=== PATIENT | male | born 1965 | race Hispanic/Latino ===

== ENCOUNTER 2018-12-02 14:35 | Observation (INO) | payer OTHER, SELFPAY ==
--- OUTSIDE RECORDS SUMMARY | 2018-12-02 14:37 | XMS REPORT ---
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
--- OUTSIDE RECORDS SUMMARY | 2018-12-02 14:37 | XMS REPORT ---
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 Problem Essential hypertension I10 Active Assessment Pain in joints of right hand M25.541 Active Problem Pure hypercholesterolemia E78.00 Active Problem History of alcoholism F10.21 Active Medications Medication Code Code Instructions Start End Date Status Dosage System Date Gemfibrozil [facility] 93428406823 600 MG Orally Active 1 tablet Twice a day Lisinopril [facility] 32734640023 20 MG Orally Active 1 tablet Once a day Metformin HCl [facility] 16166140804 1000 MG Orally Active 1 tablet Twice a day with meals Aspir-81 [facility] 04612365418 81 MG Orally Active 1 tablet Once a day Results No Known Results Summary Purpose eClinicalWorks Submission
--- OUTSIDE RECORDS SUMMARY | 2018-12-02 14:38 | XMS REPORT ---
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 Problem Essential hypertension I10 Active Assessment Diabetes 1.5, 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 Problem Pure hypercholesterolemia E78.00 Active Problem History of alcoholism F10.21 Active Medications Medication Code Code Instructions Start End Date Status Dosage System Date [facility] 75357546659 81 MG Orally Active 1 tablet Once a day Metformin HCl [facility] 01402627798 1000 MG Orally Active 1 tablet Twice a day with meals Lisinopril [facility] 09191818969 20 MG Orally Active 1 tablet Once a day Gemfibrozil [facility] 27588810063 600 MG Orally Active 1 tablet Twice a day Results No Known Results Summary Purpose eClinicalWorks Submission
[2018-12-02 15:31] LABS: Absolute Lymphocytes (CBC) 1.5 K/uL (0.7-4.9); Absolute Monocytes 0.4 K/uL (0.1-1.3); Absolute Neutrophil 7.1 K/uL (1.8-8.0); Basophils % 0.5 % (0-1.3); Eosinophils % 1.7 % (0-4.4); Hematocrit 45.2 % (39.6-49.0); Lymphocytes % 16.4 % (15.3-44.8); MPV 10.2 fL (7.6-11.3); Monocytes % 4.5 % (3.3-12.3); RBC Red Blood Cell Count 5.17 M/uL (4.33-5.43)
[2018-12-02 15:35] LABS: Protime INR 1.15
[2018-12-02] MEDS ORDERED: ENOXAPARIN 80 MG/0.8 ML SQ ONE (15:43)
[2018-12-02] MEDS ORDERED: METOPROLOL TARTRATE 5 MG/5 ML INJ IV ONE (15:43)
[2018-12-02] MEDS ORDERED: METOPROLOL TAR 50 MG TAB ONE (15:43)
[2018-12-02] MEDS ORDERED: FAMOTIDINE 20 MG/2 ML VIAL IV ONE (15:44)
[2018-12-02] MEDS ORDERED: NA CHLORIDE 0.9% 1,000 ML ONE (15:44)
[2018-12-02 15:52] LABS: ALT/SGPT 30 U/L (12-78); AST/SGOT 21 U/L (15-37); Albumin 4.2 g/dL (3.4-5.0); Alkaline Phosphatase 83 U/L (45-117); BUN Blood Urea Nitrogen 20 mg/dL (7-18); Bicarbonate 24 mmol/L (21-32); Bilirubin Direct 0.2 mg/dL (0-0.2); Bilirubin Total 1.1 mg/dL (0.2-1.0); Glucose Level 160 mg/dL (74-106); Magnesium 1.6 mg/dL (1.8-2.4); NT PRO-BNP 282 pg/mL (<125); Potassium 4.5 mmol/L (3.5-5.1); Protein, Total 8.3 g/dL (6.4-8.2); Sodium Level 134 mmol/L (136-145); Troponin (Emerg Dept Use Only) < 0.02 ng/mL (0.0-0.045)
--- NOTE | 2018-12-02 16:51 | RAD REPORT ---
EXAM DESCRIPTION: RAD - Chest Single View - 12/02/2018 4:37 pm CLINICAL HISTORY: Tachycardia, hypertension, abnormal EKG COMPARISON: None. TECHNIQUE: AP portable chest image was obtained 1624 hours . FINDINGS: Lungs are clear. Heart and vasculature are normal. No measurable pleural effusion and no p neumothorax. No acute bony abnormality seen. No acute aortic findings suspected. IMPRESSION: No acute cardiopulmonary process.
[2018-12-02] MEDS ORDERED: Magnesium Sulfate 2gm IVPB 2 G/50 ML BAG IV ONE (16:55)
--- NOTE | 2018-12-02 17:03 | ER ---
Nurse's Notes [facility] Name: Beto Luevano Age: 53 yrs Sex: Male : 1965 Arrival Date: 12/02/2018 Time: 14:38 Bed 14 Private MD: Sammy Ordaz Diagnosis: Atrial fibrillation and flutter-new onset ;Type 2 diabetes mellitus;Hypomagnesemia Presentation: 12/02 14:46 Presenting complaint: Patient states: i went for a prescreening for work and they told tw2 me to come to the ER that my heart rate was high. Transition of care: patient was not received from another setting of care. Onset of symptoms was December 02, 2018. Risk Assessment: Do you want to hurt yourself or someone else? Patient reports no desire to harm self or others. Initial Sepsis Screen: Does the patient meet any 2 criteria? HR > 90 bpm. Does the patient have a suspected source of infection? No. Patient's initial sepsis screen is negative. Care prior to arrival: None. 14:46 Method Of Arrival: Ambulatory tw2 14:46 Acuity: JUAN 2 tw2 Historical: - Allergies: 14:57 Ibuprofen; tw2 - Home Meds: 14:57 Lisinopril Oral [Active]; Metformin Oral [Active]; gemfibrozil Oral [Active]; tw2 - PMHx: 14:57 Hypertension; tw2 - PSHx: 14:57 None; tw2 - Immunization history:: Adult Immunizations. - Social history:: Smoking status: Patient/guardian denies using tobacco. - Ebola Screening: : Patient denies travel to an Ebola-affected area in the 21 days before illness onset. - Family history:: not pertinent. Screenin:54 Abuse screen: Denies threats or abuse. Nutritional screening: No deficits noted. tw2 Tuberculosis screening: No symptoms or risk factors identified. Fall Risk None identified. Assessment: 14:46 General: Appears in no apparent distress. well groomed, Behavior is calm, cooperative, tw2 appropriate for age. Pain: Denies pain. Neuro: Level of Consciousness is awake, alert, obeys commands, Oriented to person, place, time, situation. Cardiovascular: Denies chest pain, shortness of breath, Heart tones S1 S2 Patient's skin is warm and dry. Respiratory: Airway is patent Respiratory effort is even, unlabored, Respiratory pattern is regular, symmetrical, Breath sounds are clear bilaterally. GI: No signs and/or symptoms were reported involving the gastrointestinal system. : No signs and/or symptoms were reported regarding the genitourinary system. EENT: No signs and/or symptoms were reported regarding the EENT system. Derm: No signs and/or symptoms reported regarding the dermatologic system. Musculoskeletal: Range of motion: intact in all extremities. 15:28 Reassessment: Dr. Toure at bedside at t his time. tw2 15:55 Reassessment: Patient appears in no apparent distress at this time. No changes from tw2 previously documented assessment. Patient and/or family updated on plan of care and expected duration. Pain level reassessed. Patient is alert, oriented x 3, equal unlabored respirations, skin warm/dry/pink. 17:04 Reassessment: Patient appears in no apparent distress at this time. No changes from tw2 previously documented assessment. Patient and/or family updated on plan of care and expected duration. Pain level reassessed. Patient is alert, oriented x 3, equal unlabored respirations, skin warm/dry/pink. 17:06 Reassessment: Echo at bedside at this time. tw2 17:57 Reassessment: Patient appears in no apparent distress at this time. No changes from tw2 previously documented assessment. Patient and/or family updated on plan of care and expected duration. Pain level reassessed. Patient is alert, oriented x 3, equal unlabored respirations, skin warm/dry/pink. Vital Signs: 14:53 BP 152 / 110; Pulse 133; Resp 19; Temp 98.8(O); Pulse Ox 99% on R/A; Pain 0/10; tw2 14:53 Weight 78.02 kg (R); Height 5 ft. 6 in. (167.64 cm); tw2 15:28 BP 100 / 59; Pulse 117; Resp 23; Pulse Ox 98% ; tw2 15:55 BP 106 / 87; Pulse 92; Resp 23; Pulse Ox 100% on R/A; tw2 17:04 BP 105 / 78; Pulse 95; Resp 17; Pulse Ox 100% on R/A; tw2 17:57 BP 94 / 64; Pulse 102; Resp 18; Pulse Ox 98% on R/A; tw2 14:53 Body Mass Index 27.76 (78.02 kg, 167.64 cm) tw2 14:53 Dr. Whitney notified, EKG at bedside tw2 ED Course: 14:38 Patient arrived in ED. dl4 14:39 Sammy Ordaz MD is Private Physician. dl4 14:46 Placed in gown. Bed in low position. traffic monitor specialist on. Pulse ox on. NIBP on. EKG tw2 performed at this time. 14:52 James Toure MD is Attending Physician. alice 14:53 Triage completed. tw2 14:54 Arm band placed on. tw2 14:55 Initial lab(s) drawn, by me, EKG done, by ED staff, reviewed by James Toure MD. hj Inserted saline lock: 22 gauge in right antecubital area, using aseptic technique. Blood collected. 15:27 Corazon Jaramillo, RN is Primary Nurse. tw2 15:53 Inserted saline lock: 22 gauge in left forearm, using aseptic technique. tw2 15:53 IV discontinued, intact, bleeding controlled, No redness/swelling at site. Pressure tw2 dressing applied, infiltration noted to RIGHT ac. 16:38 REPEAT EKG WAS DONE. sm3 16:39 XRAY Chest (1 view) In Process Unspecified. EDMS 16:58 Sammy Ordaz MD is Hospitalizing Provider. [facility] 18:05 No provider procedures requiring assistance completed. Patient admitted, IV remains in tw2 place. Administered Medications: 15:45 Drug: Lovenox 1 mg/kg Route: Sub-Q; Site: right lower abdomen; tw2 16:38 Follow up: Response: No adverse reaction tw2 15:48 Drug: Lopressor (metoprolol TARTRATE) 50 mg Route: PO; tw2 16:39 Follow up: Response: No adverse reaction tw2 15:48 Drug: Pepcid 20 mg Route: IVP; Site: left forearm; tw2 16:38 Follow up: Response: No adverse reaction tw2 15:50 Drug: Lopressor 5 mg Route: IVP; Site: left forearm; tw2 16:38 Follow up: Response: No adverse reaction; Blood pressure is lowered tw2 15:53 Drug: NS 0.9% 1000 ml Route: IV; Rate: 1 bolus; Site: left forearm; tw2 17:06 Follow up: Response: No adverse reaction; IV Status: Completed infusion; IV Intake: tw2 1000ml 16:40 Not Given (pts condition ): Lopressor 5 mg IVP once; Hold for SBP <100 or HR <60. tw2 16:50 Drug: Magnesium Sulfate 2 grams Route: IVPB; Infused Over: 2 hrs; Site: left forearm; tw2 18:31 Follow up: Response: No adverse reaction; IV Status: Completed infusion tw2 Intake: 17:06 IV: 1000ml; Total: 1000ml. tw2 Outcome: 17:00 Decision to Hospitalize by Provider. alice 18:57 Patient left the ED. aaRadha 18:57 Admitted to Med/surg accompanied by tech, via wheelchair, room 422, with chart, Report tw2 called to nurse for room 422. 18:57 Condition: stable 18:57 Instructed on the need for admit. Signatures: Dispatcher [employer] EDJames Hay MD MD cha Calderon, Audri RN RN aa5 Colin Ordoñez RN RN hj Wise, Tara, RN RN tw2 Amanda Calzada 3 Enrike Mayo dl4
--- NOTE | 2018-12-02 17:03 | EDPHYS ---
Physician Documentation [facility] Name: Beto Luevano Age: 53 yrs Sex: Male : 1965 Arrival Date: 12/02/2018 Time: 14:38 Bed 14 Private MD: Sammy Ordaz ED Physician James Toure HPI: 12/02 15:32 This 53 yrs old Male presents to ER via Ambulatory with complaints of Abnormal alice EKG. 15:32 The patient presents with a history of irregular heart beat, heart racing. Context: The alice symptoms occur at rest, with light activity. Onset: The symptoms/episode began/occurred at an unknown time. Duration: The patient or guardian reports multiple episodes, unk. Modifying factors: The symptoms are aggravated by nothing. The symptoms are alleviated by nothing. Modifying factors: The symptoms are aggravated by movement, The symptoms are alleviated by remaining still. Associated signs and symptoms: The patient has no apparent associated signs or symptoms. Severity of symptoms: At their worst the symptoms were very mild in the emergency department the symptoms are unchanged. Historical: - Allergies: 14:57 Ibuprofen; tw2 - Home Meds: 14:57 Lisinopril Oral [Active]; Metformin Oral [Active]; gemfibrozil Oral [Active]; tw2 - PMHx: 14:57 Hypertension; tw2 - PSHx: 14:57 None; tw2 - Immunization history:: Adult Immunizations. - Social history:: Smoking status: Patient/guardian denies using tobacco. - Ebola Screening: : Patient denies travel to an Ebola-affected area in the 21 days before illness onset. - Family history:: not pertinent. ROS: 15:32 Constitutional: Negative for fever, chills, and weight loss, Eyes: Negative for injury, alice pain, redness, and discharge, ENT: Negative for injury, pain, and discharge, Neck: Negative for injury, pain, and swelling, Respiratory: Negative for shortness of breath, cough, wheezing, and pleuritic chest pain, Abdomen/GI: Negative for abdominal pain, nausea, vomiting, diarrhea, and constipation, Back: Negative for injury and pain, : Negative for injury, bleeding, discharge, and swelling, MS/Extremity: Negative for injury and deformity, Skin: Negative for injury, rash, and discoloration, Neuro: Negative for headache, weakness, numbness, tingling, and seizure, Psych: Negative for depression, anxiety, suicide ideation, homicidal ideation, and hallucinations, Allergy/Immunology: Negative for hives, rash, and allergies, Endocrine: Negative for neck swelling, polydipsia, polyuria, polyphagia, and marked weight changes, Hematologic/Lymphatic: Negative for swollen nodes, abnormal bleeding, and unusual bruising. Exam: 15:32 Constitutional: This is a well developed, well nourished patient who is awake, alert, alice and in no acute distress. Head/Face: Normocephalic, atraumatic. Eyes: Pupils equal round and reactive to light, extra-ocular motions intact. Lids and lashes normal. Conjunctiva and sclera are non-icteric and not injected. Cornea within normal limits. Periorbital areas with no swelling, redness, or edema. ENT: Nares patent. No nasal discharge, no septal abnormalities noted. Tympanic membranes are normal and external auditory canals are clear. Oropharynx with no redness, swelling, or masses, exudates, or evidence of obstruction, uvula midline. Mucous membranes moist. Neck: Trachea midline, no thyromegaly or masses palpated, and no cervical lymphadenopathy. Supple, full range of motion without nuchal rigidity, or vertebral point tenderness. No Meningismus. Chest/axilla: Normal chest wall appearance and motion. Nontender with no deformity. No lesions are appreciated. Respiratory: Lungs have equal breath sounds bilaterally, clear to auscultation and percussion. No rales, rhonchi or wheezes noted. No increased work of breathing, no retractions or nasal flaring. Abdomen/GI: Soft, non-tender, with normal bowel sounds. No distension or tympany. No guarding or rebound. No evidence of tenderness throughout. Back: No spinal tenderness. No costovertebral tenderness. Full range of motion. Male : Normal genitalia with no discharge or lesions. Skin: Warm, dry with normal turgor. Normal color with no rashes, no lesions, and no evidence of cellulitis. MS/ Extremity: Pulses equal, no cyanosis. Neurovascular intact. Full, normal range of motion. Neuro: Awake and alert, GCS 15, oriented to person, place, time, and situation. Cranial nerves II-XII grossly intact. Motor strength 5/5 in all extremities. Sensory grossly intact. Cerebellar exam normal. Normal gait. Psych: Awake, alert, with orientation to person, place and time. Behavior, mood, and affect are within normal limits. 15:32 Cardiovascular: Rate: tachycardic, Rhythm: irregularly irregular, Pulses: Pulses are 4+ in bilateral radial, brachial, femoral, popliteal, posterior tibial and and dorsalis pedis arteries.. Heart sounds: normal, Edema: is not appreciated, JVD: is not appreciated. Vital Signs: 14:53 BP 152 / 110; Pulse 133; Resp 19; Temp 98.8(O); Pulse Ox 99% on R/A; Pain 0/10; tw2 14:53 Weight 78.02 kg (R); Height 5 ft. 6 in. (167.64 cm); tw2 15:28 BP 100 / 59; Pulse 117; Resp 23; Pulse Ox 98% ; tw2 15:55 BP 106 / 87; Pulse 92; Resp 23; Pulse Ox 100% on R/A; tw2 17:04 BP 105 / 78; Pulse 95; Resp 17; Pulse Ox 100% on R/A; tw2 17:57 BP 94 / 64; Pulse 102; Resp 18; Pulse Ox 98% on R/A; tw2 14:53 Body Mass Index 27.76 (78.02 kg, 167.64 cm) tw2 14:53 Dr. Whitney notified, EKG at bedside tw2 MDM: 14:52 Patient medically screened. [facility] 15:36 Data reviewed: vital signs, nurses notes, lab test result(s), EKG, radiologic studies, alice plain films. 12/02 14:58 Order name: Basic Metabolic Panel; Complete Time: 16:27 12/02 14:58 Order name: CBC with Diff; Complete Time: 16:27 12/02 14:58 Order name: LFT's; Complete Time: 16:27 12/02 14:58 Order name: Magnesium; Complete Time: 16:27 12/02 14:58 Order name: NT PRO-BNP; Complete Time: 16:27 12/02 14:58 Order name: PT-INR; Complete Time: 16:27 12/02 14:58 Order name: Troponin (emerg Dept Use Only); Complete Time: 16:27 12/02 14:58 Order name: XRAY Chest (1 view) 12/02 15:26 Order name: TSH [facility] 12/02 15:26 Order name: Echo w/ Doppler [facility] 12/02 16:33 Order name: Echo w/ Doppler [facility] 12/02 14:58 Order name: EKG; Complete Time: 14:58 12/02 14:58 Order name: Cardiac monitoring; Complete Time: 14:58 12/02 14:58 Order name: EKG - Nurse/Tech; Complete Time: 14:58 12/02 14:58 Order name: IV Saline Lock; Complete Time: 14:58 12/02 14:58 Order name: Labs collected and sent; Complete Time: 14:58 12/02 14:58 Order name: O2 Per Protocol; Complete Time: 14:58 12/02 14:58 Order name: O2 Sat Monitoring; Complete Time: 14:58 12/02 16:28 Order name: EKG; Complete Time: 16:29 [facility] 12/02 16:28 Order name: EKG - Nurse/Tech; Complete Time: 16:38 [facility] 12/02 17:25 Order name: CONS Physician Consult EDMS Administered Medications: 15:45 Drug: Lovenox 1 mg/kg Route: Sub-Q; Site: right lower abdomen; tw2 16:38 Follow up: Response: No adverse reaction tw2 15:48 Drug: Lopressor (metoprolol TARTRATE) 50 mg Route: PO; tw2 16:39 Follow up: Response: No adverse reaction tw2 15:48 Drug: Pepcid 20 mg Route: IVP; Site: left forearm; tw2 16:38 Follow up: Response: No adverse reaction tw2 15:50 Drug: Lopressor 5 mg Route: IVP; Site: left forearm; tw2 16:38 Follow up: Response: No adverse reaction; Blood pressure is lowered tw2 15:53 Drug: NS 0.9% 1000 ml Route: IV; Rate: 1 bolus; Site: left forearm; tw2 17:06 Follow up: Response: No adverse reaction; IV Status: Completed infusion; IV Intake: tw2 1000ml 16:40 Not Given (pts condition ): Lopressor 5 mg IVP once; Hold for SBP <100 or HR <60. tw2 16:50 Drug: Magnesium Sulfate 2 grams Route: IVPB; Infused Over: 2 hrs; Site: left forearm; tw2 18:31 Follow up: Response: No adverse reaction; IV Status: Completed infusion tw2 Disposition: 12/02/18 17:00 Hospitalization ordered by Sammy Ordaz for Observation. Preliminary diagnosis are Atrial fibrillation and flutter - new onset , Type 2 diabetes mellitus, Hypomagnesemia. - Bed requested for Telemetry/MedSurg (observation). - Status is Observation. aa5 - Condition is Stable. - Problem is new. - Symptoms have improved. UTI on Admission? No Signatures: Dispatcher [employer] EDMS [place] Corey, MD MD cha Calderon, Audri RN RN aa5 Corazon Jaramillo RN RN tw2 Corrections: (The following items were deleted from the chart) 18:00 17:00 Hospitalization Ordered by Sammy Ordaz MD for Observation. Preliminary diagnosis bd is Atrial fibrillation and flutter - new onset ; Type 2 diabetes mellitus; Hypomagnesemia. Bed requested for Telemetry/MedSurg (observation). Status is Observation. Condition is Stable. Problem is new. Symptoms have improved. UTI on Admission? No. alice 18:57 18:00 12/02/2018 17:00 Hospitalization Ordered by Sammy Ordaz MD for Observation. aa5 Preliminary diagnosis is Atrial fibrillation and flutter - new onset ; Type 2 diabetes mellitus; Hypomagnesemia. Bed requested for Telemetry/MedSurg (observation). Status is Observation. Condition is Stable. Problem is new. Symptoms have improved. UTI on Admission? No. bd
[2018-12-02 19:13] LABS: Urine Appearance CLEAR; Urine Bilirubin NEGATIVE (NEG); Urine Blood NEGATIVE (NEG); Urine Color YELLOW; Urine Glucose NEGATIVE (NEG); Urine Protein NEGATIVE (NEG); Urine Urobilinogen 0.2 mg/dL (0.2-1.0)
[2018-12-02] MEDS ORDERED: D50W 25 GM/50 ML SYRINGE IV PRN (19:23)
[2018-12-02] MEDS ORDERED: GLUCAGON 1 MG/VIAL IM PRN (19:23)
[2018-12-02] MEDS ORDERED: ONDANSETRON 4 MG/2 ML VIAL IV PRN (19:23)
[2018-12-02] MEDS ORDERED: MORPHINE 4 MG/ML SYR IV PRN (19:23)
[2018-12-02] MEDS ORDERED: ACETAMINOPHEN 500 MG TAB PO PRN (19:23)
[2018-12-02 19:29] LABS: Urine Bacteria NONE SEEN /HPF (NONE SEEN); Urine Culture Reflex Order NOT NEEDED; Urine RBC NONE SEEN /HPF (NONE SEEN)
[2018-12-02] MEDS ORDERED: METOPROLOL TAR 50 MG TAB PO SCH (21:00)
[2018-12-02] MEDS ORDERED: ENOXAPARIN 80 MG/0.8 ML SQ SCH (21:00)
[2018-12-02] MEDS: NA CHLORIDE 0.9% 1,000 ML IV SCH (21:03)
[2018-12-02] MEDS: MAGNESIUM OXIDE 400 MG TAB PO SCH (21:05)
[2018-12-02] MEDS: INSULIN -REGULAR HUMAN 50 UNIT/0.5 ML ML SQ SCH (21:05)
[2018-12-02] MEDS: FAMOTIDINE 20 MG/2 ML VIAL IV SCH (21:06)
[2018-12-02 23:47] VITALS: BMI 27.7
[2018-12-03 02:37] VITALS: O2SAT 99
[2018-12-03 04:46] VITALS: TEMP 97.7
[2018-12-03] MEDS: NA CHLORIDE 0.9% 1,000 ML IV SCH (05:09)
[2018-12-03] MEDS ORDERED: ENOXAPARIN 80 MG/0.8 ML SQ SCH (06:00)
[2018-12-03 06:29] LABS: Absolute Monocytes 0.4 K/uL (0.1-1.3); Absolute Neutrophil 2.6 K/uL (1.8-8.0); Basophils % 0.7 % (0-1.3); Eosinophils % 5.6 % (0-4.4); Hematocrit 39.5 % (39.6-49.0); Lymphocytes % 36.6 % (15.3-44.8); MPV 10.1 fL (7.6-11.3); Monocytes % 7.7 % (3.3-12.3); RBC Red Blood Cell Count 4.52 M/uL (4.33-5.43)
[2018-12-03 06:30] LABS: BUN Blood Urea Nitrogen 17 mg/dL (7-18); Bicarbonate 24 mmol/L (21-32); Glucose Level 154 mg/dL (74-106); Potassium 4.1 mmol/L (3.5-5.1); Sodium Level 141 mmol/L (136-145)
--- NOTE | 2018-12-03 06:57 | EKG ---
Test Date: 2018-12-02 Test Time: 16:35:27 Lean Engineer: ZHANG MEASUREMENT RESULTS: Intervals: Rate: 85 VA: QRSD: 82 QT: 344 QTc: 409 [place]: P: VA: QRS: 44 T: 40 INTERPRETIVE STATEMENTS: Atrial fibrillation Abnormal ECG Compared to ECG 04/22/2007 21:47:50 Sinus rhythm no longer present T-wave abnormality no longer present Electronically Signed On 12-03-18 06:56:07 LOSS PREVENTION OPERATIONS MANAGER by Andrea Wu
--- NOTE | 2018-12-03 06:58 | EKG ---
Test Date: 2018-12-02 Test Time: 14:50:54 Business Process Specialist: CYNTHIA MEASUREMENT RESULTS: Intervals: Rate: 121 AK: QRSD: 82 QT: 266 QTc: 377 [place]: P: AK: QRS: 46 T: 41 INTERPRETIVE STATEMENTS: Atrial fibrillation with rapid ventricular response Abnormal ECG Compared to ECG 04/22/2007 21:47:50 Sinus rhythm no longer present T-wave abnormality no longer present Electronically Signed On 12-03-18 06:56:17 FOOD AND BEVERAGE COORDINATOR by Andrea Wu
[2018-12-03] MEDS: INSULIN -REGULAR HUMAN 50 UNIT/0.5 ML ML SQ SCH (07:30)
--- NOTE | 2018-12-03 07:50 | ECHO ---
HEIGHT: 5 ft 6 in WEIGHT: 172 lb 0 oz DATE OF STUDY: 12/02/[address]: James Toure MD 2-DIMENSIONAL: YES M.MODE: YES DOPPLER: YES COLOR FLOW: YES TDS: NO PORTABLE: NO DEFINITY: NO BUBBLE STUDY: NO DIAGNOSIS: ATRIAL FIBRILLATION CARDIAC HISTORY: CATHERIZATION: NO SURGERY: NO PROSTHETIC VALVE: NO PACEMAKER: NO MEASUREMENTS (cm) DIASTOLIC (NORMALS) SYSTOLIC (NORMALS) IVSd 1.1 (0.6-1.2) LA Diam 4.0 (1.9-4.0) LVEF 56% LVIDd 4.3 (3.5-5.7) LVIDs 3.1 (2.0-3.5) %FS 29% LVPWd 1.0 (0.6-1.2) Ao Diam 2.6 (2.0-3.7) 2 DIMENSIONAL ASSESSMENT: RIGHT ATRIUM: NORMAL LEFT ATRIUM: NORMAL RIGHT VENTRICLE: NORMAL LEFT VENTRICLE: NORMAL TRICUSPID VALVE: NORMAL MITRAL VALVE: NORMAL PULMONIC VALVE: NORMAL AORTIC VALVE: NORMAL PERICARDIAL EFFUSION: NONE AORTIC ROOT: NORMAL LEFT VENTRICULAR WALL MOTION: NORMAL DOPPLER/COLOR FLOW: MILD TRICUSPID REGURGITATION. COMMENTS: MILD TRICUSPID REGURGITATION. NORMAL RIGHT VENTRICULAR SYSTOLIC PRESSURE. NORMAL LEFT VENTRICULAR SIZE AND FUNCTION. NORMAL LEFT ATRIAL SIZE, NO THROMBUS. ATRIAL FIBRILLATION. TECHNOLOGIST: Scot CHA
--- NOTE | 2018-12-03 08:40 | P.SSS ---
Patient History Date of Service: 12/03/18 Primary Care Provider: Orlin Reason for admission: Atrial fib History of Present Illness: Patient is a office patient of [employer]. Has a history of diabetes, htn, chronic alcoholism in remission. The patient went to a pre work physical. Was found to have a rapid heart rate and got an EKG. Was sent to the ER with Atrial fib. The patient had a heart rate over 100. He had no symptoms. Was started on a beta carrie and given lovenox. He has no history of CAD. Allergies ibuprofen Allergy (Verified 12/02/18 18:32) Hives Home Medications: Aspirin [Adult Low Dose Aspirin EC] 81 mg PO DAILY 12/02/18 Docosahexanoic AC/Epa [Fish Oil 1,000 MG*] 1,000 mg PO DAILY 12/02/18 Gemfibrozil 600 mg PO BID 12/02/18 Lisinopril 30 mg PO DAILY 12/02/18 Metformin HCl 1,000 mg PO BEDTIME 12/02/18 Metformin HCl 1,500 mg PO DAILY 12/02/18 Multivits,Ca,Min/Iron/FA/Lycop [Centrum Men's Tablet] 1 tab PO DAILY 12/02/18 - Past Medical/Surgical History Has patient received pneumonia vaccine in the past: No Diabetic: Yes -: HTN -: hyperlipidemia -: NIDDM -: L ankle fx -: pancreatitis -: L ankle surgery - Family History Father -: Diabetes Mother -: Hypertension - Social History Smoking Status: Current some day smoker Alcohol use: Yes CD- Drugs: No Caffeine use: Yes Place of Residence: Home Review of Systems 10-point ROS is otherwise unremarkable Physical Examination - Vital Signs Temperature: 97.7 F Blood Pressure: 122/84 Pulse: 91 Respirations: 16 Pulse Ox (%): 98 - Physical Exam General: Alert, In no apparent distress HEENT: Atraumatic, PERRLA, Mucous membr. moist/pink, EOMI, Sclerae nonicteric Neck: Supple, 2+ carotid pulse no bruit, No LAD, Without JVD or thyroid abnormality Respiratory: Clear to auscultation bilaterally, Normal air movement Cardiovascular: Regular rate/rhythm, Normal S1 S2 Gastrointestinal: Normal bowel sounds, No tenderness Musculoskeletal: No tenderness Integumentary: No rashes Neurological: Normal gait, Normal speech, Normal strength at 5/5 x4 extr, Normal tone, Normal affect Lymphatics: No axilla or inguinal lymphadenopathy - Studies Laboratory Data (last 24 hrs) 12/02/18 14:59: PT 13.5 H, INR 1.15 12/02/18 14:59: WBC 9.3, Hgb 15.2, Hct 45.2, Plt Count 208 12/02/18 14:59: Sodium 134 L, Potassium 4.5, BUN 20 H, Creatinine 0.95, Glucose 160 H, Magnesium 1.6 L, Total Bilirubin 1.1 H, AST 21, ALT 30, Alkaline Phosphatase 83 - Diagnosis (Problem(s)) (1) Atrial fibrillation Current Visit: Yes Status: Acute Plan: New onset. He was seen by Dr. Wu. Had a normal echocardiogram. Will start him on carvedilol and xarelto. Will have him follow up with Dr. Wu and myself. Qualifiers: Atrial fibrillation type: unspecified Qualified Code(s): I48.91 - Unspecified atrial fibrillation (2) Diabetes 1.5, managed as type 2 Current Visit: Yes Status: Acute Plan: Patient is stable on metformin (3) HTN (hypertension) Current Visit: Yes Status: Acute Plan: continue lisinopril. The patient is stable. Qualifiers: Hypertension type: essential hypertension Qualified Code(s): I10 - Essential (primary) hypertension - Disposition Disposition: ROUTINE DISCHARGE Diet: ADA Activity: Ad enrique Physician Review: Patient Assessed, Agree with Above Assessment and Plan Critical Care: No Time Spent Managing Pts Care (In Minutes): 45
[2018-12-03] MEDS: FAMOTIDINE 20 MG/2 ML VIAL IV SCH (08:59)
[2018-12-03] MEDS ORDERED: LISINOPRIL 10 MG TAB PO SCH (09:00)
[2018-12-03] MEDS ORDERED: ASPIRIN EC 81 MG TAB PO SCH (09:00)
[2018-12-03] MEDS ORDERED: CARVEDILOL 6.25 MG TAB PO SCH (09:00)
[2018-12-03 09:01] VITALS: BP 124/90
[2018-12-03] MEDS: MAGNESIUM OXIDE 400 MG TAB PO SCH (09:22)
--- NOTE | 2018-12-03 10:55 | EKG ---
Test Date: 2018-12-03 Test Time: 09:29:50 Process Eng: RENÉE MEASUREMENT RESULTS: Intervals: Rate: 97 [place]: QRSD: 86 QT: 318 QTc: 403 [place]: P: [place]: QRS: 48 T: 40 INTERPRETIVE STATEMENTS: Atrial fibrillation Abnormal ECG Compared to ECG 12/02/2018 16:35:27 No significant changes Electronically Signed On 12-03-18 10:54:49 [employer] by Josse Russell
--- NOTE | 2018-12-03 12:22 | CON ---
Date of Consultation: 12/02/2018 Reason For Admission: Atrial fibrillation. History Of Present Illness: Mr. Luevano is a 53-year-old male, who has a history of d iabetes, high triglyceride, hypertension, and alcohol use. He was found incidentally to be in atrial fibrillation on routine physical examination. He did not have any symptoms. He was [facility], was admitted after Lovenox and beta-blockers. He is now on Xarelto and beta-blockers. His atrial fibrillation rate is about 90-100. Echocardiogram that was done stat shows normal ejectio n fraction. No wall motion abnormalities and no effusion. The patient is asymptomatic. Allergies: MOTRIN. Review of Systems: Negative. Social History: Positive for tobacco. Family History: Positive for diabetes. Medications: At home include metformin, aspirin, Lopid, and lisinopril. Physical Examination: Vital signs: Stable, afebrile. Atrial fibrillation at a rate of 90 HEENT: Negative. Neck: Supple with no bruit. Chest: Clear to auscultation and percussion. Cardiac: Exam revealed atrial fibrillation. No murmurs, gallops, or rubs. Abdomen: Benign. Extremities: Revealed no clubbing, cyanosis, or edema. Diagnostic Data: All normal except for the EKG showing atrial fibrillation. Glucose is 160. Tropon in is negative. Chest x-ray was negative. Impression And Plan: Atrial fibrillation of unknown duration. I would be comfortable with him going home on Xarelto and a beta carrie. We will see how he does over the next 2 weeks. I will see him in the office. I will do an outpatient stress test on him. If he remains asymptomatic, we could con tinue with beta-carrie, Xarelto or consider cardioversion. The case was discussed in detail with Dr Tavia Ordaz, with Mr. Luevano and his family. His other problems include diabetes, hypertension, and hyp ertriglyceridemia, although these are fairly well controlled. The patient was instructed to watch hi s alcohol intake. DALY/MODL Voice ID: [id number] Report ID: [id number]
[2018-12-03] MEDS ORDERED: RIVAROXABAN 20 MG TABLET PO SCH (17:00)
== END 2018-12-03 09:47 | disposition home or self-care (01) ==
LOC: ER 14:35 → ERHOLD 17:22 → 4TH 18:33
PROVIDERS: ADMIT Internal Medicine; ATTEND Internal Medicine
DX: I48.91 Unspecified atrial fibrillation (principal); E11.9 Type 2 diabetes mellitus without complications; I10 Essential (primary) hypertension; E78.5 Hyperlipidemia, unspecified; F17.210 Nicotine dependence, cigarettes, uncomplicated
CPT/HCPCS: 36415; 71045; 80048; 80076; 81001; 82962; 83735; 83880; 84443; 84484; 85025; 85610; 93005; 93306; 96361; 96365; 96366; 96372; 96375; 99285; G0378; J1650; J3475; J7030

== ENCOUNTER 2020-04-17 02:17 | Emergency (ER) | payer OTHER, SELFPAY ==
--- OUTSIDE RECORDS SUMMARY | 2020-04-17 02:23 | XMS REPORT | Clinical Summary ---
:1965 Author Organization [facility] Address [address] [place] [address] Care Team Providers Name Role Phone Rose Ordaz MD Primary Care Provider Allergies Active Allergy Reactions Severity Noted Date Comments Ibuprofen Hives 05/05/2019 Medications Medication Sig Dispensed Refills Start End Date Status Date aspirin (ECOTRIN) Take 81 mg by 0 Active 81 MG enteric mouth daily. coated tablet docosahexanoic Take by mouth. 0 Active acid/epa (FISH OIL ORAL) multivitamin Take 1 tablet 0 Act fredy (THERAGRAN) tablet by mouth daily. lisinopril Take 20 mg by 0 Activ e (PRINIVIL) 20 mg mouth daily. tablet metFORMIN Take 1,000 mg 0 Active (GLUCOPHAGE) 1,000 by mouth daily mg tablet with breakfast. rivaroxaban Take 20 mg by 0 Acti ve (XARELTO) 20 mg mouth daily. tablet CARVEDILOL ORAL Take by mouth. 0 Active baclofen Take 1 tablet 3 90 tablet 11 Acti ve (LIORESAL) 10 MG times a day-- 9 tablet Start 1 tablet at bedtime x1 week, then 1 tablet twice daily x1 week, then 1 tablet three times daily gemfibrozil Take 600 mg by 0 Act fredy (LOPID) 600 MG mouth 2 (two) tablet times a day before meals. ascorbic acid Take 1,000 mg 0 Ac tive (VITAMIN C ORAL) by mouth. cholecalciferol, Take 1,000 0 Ac tive vitamin D3, Units by mouth (VITAMIN D3) 1,000 daily. unit tablet BETA CAROTENE ORAL Take 15 mg by 0 Active mouth. folic acid 0.8 mg Take by mouth. 0 Active capsule riluzole (RILUTEK) Take 1 tablet 180 tablet 3 Active 50 mg tablet (50 mg total) 0 21 by mouth every 12 (twelve) hours. NON FORMULARY Genfibrozil 600 0 09/18/20 Discontinued mg po bid 19 (Med List Cleanup) riluzole (RILUTEK) Take 1 tablet 180 tablet 3 Discontinued 50 mg tablet (50 mg total) 9 20 (Du plicate by mouth every order ) 12 (twelve) hours. riluzole (RILUTEK) Take 1 tablet 60 tablet 2 0 Discontinued 50 mg tablet (50 mg total) 0 20 by mouth every 12 (twelve) hours. riluzole (RILUTEK) TAKE 1 TABLET 60 tablet 11 0 Discontinued 50 mg (50 MG TOTAL) 0 20 (Dupli winnie tabletIndications: BY MOUTH EVERY order) ALS (amyotrophic 12 (TWELVE) lateral sclerosis) HOURS. (FORMERLY [facility]) Active Problems Problem Noted Date Spasticity 10/29/2019 Risk for falls 10/29/2019 Muscle cramping 05/07/2019 Atrial fibrillation 05/06/2019 ALS (amyotrophic lateral sclerosis) Muscle weakness Resolved Problems Problem Noted Date Resolved Date Cranial nerve lesion 05/06/2019 Myasthenia gravis with exacerbation 04/08 Encounters Date Type Specialty Care Team Description 03/03/2020 Telephone Neurology Sandy Nation RN 03/02/2020 Documentation ADMIN Annika Hernandez 02/09/2020 Telephone Neurology Sandy Nation RN 02/02/2020 Orders Only Neurology Sandy Nation RN 01/27/2020 Social Work Neurology Joelle Vargas LCSW 01/07/2020 Refill Neurology Sourav Velazco ALS (amyotrop hic MD Marques lateral scleros is) ([facility]LY [facility]) (Primary Dx) 12/25/2019 Telephone Neurology Dennise Parkinson ALS (amyotro aixa SERVIN lateral scleros is) (FORM[facility]LY [facility]) (Primary Dx) 12/25/2019 Travel 11/10/2019 Orders Only Neurology Sandy Nation RN 09/18/2019 Lab Lab Sourav Velazco ALS (amyotrop hic MD trini Mohan scleros is) (FORM[facility]LY [facility]) 09/18/2019 Multidisciplinary Visit Neurology Sony Hernandez ALS (amyotrophic lateral sclerosis) (FORM[facility]LY [facility]) (Primary Dx); MD Sloan Spasticity; Dennise Parkinson, Muscle cramp ing; RN Muscle weakness ; Risk for falls 09/18/2019 Documentation Neurology Sophia Price 09/10/2019 Orders Only Neurology Dennise Parkinson, ALS (amyotro phic RN lateral scleros is) ([facility]) (Primary Dx) 05/07/2019 Hospital Encounter Radiology Sourav Velazco ALS (am yotrophic lateral sclerosis) (FORM[facility]LY [facility]); MD Marques Type 2 diabetes mellitus with other ophthalmic complication, without long-term current use of insulin ([facility]) 05/07/2019 Procedure visit Neurology Sourav Vealzco ALS (amyot rophic lateral sclerosis) ([facility]) (Primary Dx); MD Marques Weight loss, un intentional 05/07/2019 Orders Only Neurology Dennise Parkinson, ALS (amyotro phic lateral sclerosis) ([facility]) (Primary Dx); RN Muscle cramping 05/06/2019 Procedure visit Neurology Sourav Velazco Type 2 flo betes mellitus with other ophthalmic complication, without long-term current use of insulin ([facility]) (Primary Dx); MD Marques ALS (amyotrophi c lateral sclerosis) ([facility]); Weight loss, un intentional 05/06/2019 Orders Only Neurology Sandy Nation ALS (amyot rophic lateral sclerosis) ([facility]) (Primary Dx); RN Type 2 diabetes mellitus with other ophthalmic complication, without long- term current use of insulin ([facility]) 05/06/2019 Documentation ADMIN Michelet Flores 05/06/2019 Documentation ADMIN Michelet Flores 05/05/2019 Hospital Encounter Radiology Sourav Velazco MD 05/05/2019 Hospital Encounter Radiology Sourav Velazco MD 05/05/2019 Hospital Encounter Pulmonology Sourav Velazco (am yotrophic lateral sclerosis) ([facility]LY [facility]); MD Marques Weight loss, un intentional 05/05/2019 Procedure visit Neurology Sourav Velazco ALS (amyot rophic lateral sclerosis) ([facility]); MD Marques Weight loss, un intentional; Atrial fibrilla tion, unspecified type ([facility]) 05/05/2019 Social Work Neurology Joelle Vargas LCSW 05/05/2019 Orders Only Neurology Sandy Nation, Atrial fib rillation, RN unspecified typ e (HCC) (Primary Dx) 04/23/2019 Orders Only Neurology Sandy Nation, ALS (amyot rophic lateral sclerosis) ([facility]) (Primary Dx); RN Weight loss, un intentional after 04/17/2019 Family History Medical History Relation Name Comments Diabetes Father Hypertension Mother Relation Name Status Comments Father Mother Social History Tobacco Use Types Packs/Day Years Used Date Former Smoker Smokeless Tobacco: Never Used Alcohol Use Drinks/Week oz/Week Comments Yes 20 Cans of beer 20.0 Sex Assigned at Date Recorded Not on file Job Start Date Occupation Industry Not on file Not on file Not on file Travel History Travel Start Travel End No recent travel history available. Last Filed Vital Signs Vital Sign Reading Time Taken Comments Blood Pressure 137/96 09/18/2019 7:43 [facility] Pulse 83 09/18/2019 7:43 [employer] [facility] Temperature 36.4 C (97.6 F) 09/18/2019 7:43 AM [employer] [facility] Respiratory Rate 16 09/18/2019 7:43 AM [employer] [facility] Oxygen Saturation 98% 05/07/2019 10:00 AM CDT Inhaled Oxygen Concentration - - Weight 76.5 kg (168 lb 11.2 oz) 09/18/2019 7:43 AM [employer] Height 165.1 cm (5' 5") 09/18/2019 7:43 AM [employer] [facility] Body Mass Index 28.07 09/18/2019 7:43 AM [facility] Plan of Treatment Date Type Specialty Care Team Description 05/13/2020 Multidisciplinary Visit Neurology Dennise Parkinson R N Health Maintenance Due Date Last Done Comments DIABETIC RETINAL EYE EXAM 1965 DIABETIC FOOT EXAM 1974 URINE MICROALBUMIN 1974 COLONOSCOPY SCREENING 2014 SHINGLES VACCINES (#1) 2014 INFLUENZA VACCINE 05/07/2020 Procedures Procedure Name Priority Date/Time Associated Diagnosis Comme nts HEPATIC FUNCTION PANEL Routine 09/18/2019 7:30 ALS (amyotroph ic Results for this AM [facility] [facility] lateral sclerosis) procedure are in ([facility]) the results section. IR LUMBAR PUNCTURE Routine 05/07/2019 9:45 ALS (amyotrophic R esults for this AM CDT lateral sclerosis) procedure are in ([facility]) the results Type 2 diabetes section. mellitus with other ophthalmic complication, without long-term current use of insulin (HCC) OLIGOCLONAL BANDING, Routine 05/07/2019 9:38 Res ults for this CSF AM CDT procedure are i n the results section. CSF CELL COUNT WITH Routine 05/07/2019 9:38 ALS (amyotrophic Results for this DIFFERENTIAL AM CDT lateral sclerosis) procedure are in ([facility]) the results Type 2 diabetes section. mellitus with other ophthalmic complication, without long-term current use of insulin ([facility]) GLUCOSE LEVEL, CSF Routine 05/07/2019 9:38 ALS (amyotrophic R esults for this AM CDT lateral sclerosis) procedure are in ([facility]) the results Type 2 diabetes section. mellitus with other ophthalmic complication, without long-term current use of insulin ([facility]) IGG SYNTHESIS RATE Routine 05/07/2019 9:38 ALS (amyotrophic R esults for this STUDY AM CDT lateral sclerosis) procedure are in ([facility]) the results Type 2 diabetes section. mellitus with other ophthalmic complication, without long-term current use of insulin ([facility]) LYME DISEASE REFLEXIVE Routine 05/07/2019 9:38 ALS (amyotroph ic Results for this PANEL, CSF AM CDT lateral sclerosis) procedure are in ([facility]) the results Type 2 diabetes section. mellitus with other ophthalmic complication, without long-term current use of insulin ([facility]) MYELIN BASIC PROTEIN Routine 05/07/2019 9:38 ALS (amyotrophic Results for this AM CDT lateral sclerosis) procedure are in ([facility]) the results Type 2 diabetes section. mellitus with other ophthalmic complication, without long-term current use of insulin ([facility]) POC GLUCOSE Routine 05/07/2019 9:11 Results for this AM CDT procedure are i n the results section. IGG SYNTHESIS RATE STAT 05/07/2019 6:55 ALS (amyotrophic R esults for this STUDY AM CDT lateral sclerosis) procedure are in ([facility]) the results section. HEMOGLOBIN A1C Routine 05/06/2019 9:52 Type 2 diabetes Result s for this AM CDT mellitus with other procedur e are in ophthalmic the results complication, section. without long-term current use of insulin ([facility]) EMG Routine 05/05/2019 3:47 ALS (amyotrophic Results for this PM CDT lateral sclerosis) procedure are in ([facility]) the results Weight loss, section. unintentional ECG 12-LEAD Routine 05/05/2019 12:27 Atrial fibrillation, Res ults for this PM CDT unspecified type procedure a re in ([facility]) the results section. SPIROMETRY, MIPS/MEPS Routine 05/05/2019 7:33 ALS (amyotrophi c Results for this AM CDT lateral sclerosis) procedure are in (HCC) the results Weight loss, section. unintentional MARIE TITER Routine 05/05/2019 7:08 Results for this AM CDT procedure are i n the results section. ESTIMATED GFR Routine 05/05/2019 7:08 Results fo r this AM CDT procedure are i n the results section. ACETYLCHOLINE RECEPTOR Routine 05/05/2019 7:08 ALS (amyotroph ic Results for this BINDING AB AM CDT lateral sclerosis) procedure are in (HCC) the results Weight loss, section. unintentional MARIE Routine 05/05/2019 7:08 ALS (amyotrophic Results for this AM CDT lateral sclerosis) procedure are in (HCC) the results Weight loss, section. unintentional BASIC METABOLIC PANEL Routine 05/05/2019 7:08 ALS (amyotrophi c Results for this AM CDT lateral sclerosis) procedure are in ([facility]) the results Weight loss, section. unintentional HC COMPLETE BLD COUNT Routine 05/05/2019 7:08 ALS (amyotrophi c Results for this W/AUTO DIFF AM CDT lateral sclerosis) procedure are in (HCC) the results Weight loss, section. unintentional CREATINE KINASE, TOTAL Routine 05/05/2019 7:08 ALS (amyotroph ic Results for this (CPK) AM CDT lateral sclerosis) procedure are in (HCC) the results Weight loss, section. unintentional FOLATE LEVEL Routine 05/05/2019 7:08 ALS (amyotrophic Results for this AM CDT lateral sclerosis) procedure are in ([facility]) the results Weight loss, section. unintentional HEPATIC FUNCTION PANEL Routine 05/05/2019 7:08 ALS (amyotroph ic Results for this AM CDT lateral sclerosis) procedure are in (HCC) the results Weight loss, section. unintentional HTLV I/II AB WITH Routine 05/05/2019 7:08 ALS (amyotrophic Re sults for this REFLEX TO CONFIRMATION AM CDT lateral sclerosis) procedure are in ([facility]) the results Weight loss, section. unintentional LIPID PANEL Routine 05/05/2019 7:08 ALS (amyotrophic Results for this AM CDT lateral sclerosis) procedure are in (HCC) the results Weight loss, section. unintentional B. BURGDORFERI ABS Routine 05/05/2019 7:08 ALS (amyotrophic R esults for this TOTAL, SERUM AM CDT lateral sclerosis) procedure are in (HCC) the results Weight loss, section. unintentional PARATHYROID HORMONE Routine 05/05/2019 7:08 ALS (amyotrophic Results for this AM CDT lateral sclerosis) procedure are in (HCC) the results Weight loss, section. unintentional RHEUMATOID FACTOR Routine 05/05/2019 7:08 ALS (amyotrophic Re sults for this AM CDT lateral sclerosis) procedure are in (HCC) the results Weight loss, section. unintentional SYPHILIS TOTAL ANTIBODY Routine 05/05/2019 7:08 ALS (amyotrop hic Results for this AM CDT lateral sclerosis) procedure are in (HCC) the results Weight loss, section. unintentional SERUM ELECTROPHORESIS Routine 05/05/2019 7:08 ALS (amyotrophi c Results for this AM CDT lateral sclerosis) procedure are in (HCC) the results Weight loss, section. unintentional T4, FREE Routine 05/05/2019 7:08 ALS (amyotrophic Results for this AM CDT lateral sclerosis) procedure are in (HCC) the results Weight loss, section. unintentional THYROID STIMULATING Routine 05/05/2019 7:08 ALS (amyotrophic Results for this HORMONE AM CDT lateral sclerosis) procedure are in (HCC) the results Weight loss, section. unintentional VITAMIN D 25 HYDROXY Routine 05/05/2019 7:08 ALS (amyotrophic Results for this LEVEL AM CDT lateral sclerosis) procedure are in (HCC) the results Weight loss, section. unintentional VITAMIN B12 LEVEL Routine 05/05/2019 7:08 ALS (amyotrophic Re sults for this AM CDT lateral sclerosis) procedure are in (HCC) the results Weight loss, section. unintentional CRP HIGH SENSITIVITY Routine 05/05/2019 7:08 ALS (amyotrophic Results for this AM CDT lateral sclerosis) procedure are in (HCC) the results Weight loss, section. unintentional HIV AG/AB COMBINATION Routine 05/05/2019 7:08 ALS (amyotrophi c Results for this AM CDT lateral sclerosis) procedure are in (HCC) the results Weight loss, section. unintentional after 04/17/2019 Results Hepatic function panel (09/18/2019 7:30 AM [employer] [facility])Only the most recent of2 results within the time period is included. Albumin 3.9 3.5 - 5.0 g/dL [facility] Total bilirubin 0.9 0.0 - 1.2 [facility] mg/dL [facility] Bilirubin direct <0.2 0.0 - 0.3 [facility] mg/dL [facility] Alkaline phosphatase 77 40 - 129 U/L [facility] Protein 7.9 6.3 - 8.3 g/dL [facility] Comment: HOSPITAL Pdrkisy8103.6-7.0 g/dL 1 btga9438.4-7.6 g/dL 7 months-6xgie441.1-7.3 g/dL 1-2 .6-7.5 g/dL >3 wtzmi895.0-8.0 g/dL 18-2255984.3-8.3 g/dL ALT 28 5 - 50 U/L [facility] AST 25 10 - 50 U/L [facility] Specimen Plasma specimen Performing Organization Address City/State/Zipcode Phone Number [facility] DEPARTMENT OF PATHOLOGY AND [address] [place] [phone] GENOMIC MEDICINE [address] [address] IR Lumbar Puncture by Radiology (05/07/2019 9:45 AM CDT) Specimen Narrative Performed At EXAMINATION: IR LUMBAR PUNCTURE [facility] NUMBER OF VIEWS: 0 CLINICAL HISTORY: G12.21 Amyotrophic lateral scleros is, E11.39 Type 2 diabetes mellitus with other diabetic op hthalmic complication, ALS COMPARISON: None. FINDINGS: After informed consent, lumbar puncture was performed with fluoroscopic assistance at the L5-S1 level using a 27-gauge spinal needle. Approximately 15 cc of clear cerebral spinal fluid was obtained and sent to the lab. No radiographs were taken. In fact the save screen pilo ge was deleted by mistake. The total fluoroscopy time was 0.10 liza tavares. IMPRESSION: Lumbar puncture. [facility]-[id number] Procedure Note Interface, Radiology Results Incoming - 05/07/2019 10:15 AM CDT EXAMINATION: IR LUMBAR PUNCTURE NUMBER OF VIEWS: 0 CLINICAL HISTORY: G12.21 Amyotrophic la teral sclerosis, E11.39 Type 2 diabetes mellitus with other diabetic ophthalmic complication, ALS COMPARISON: None. FINDINGS: After informed consent, lumbar puncture was performed with fluoroscopic assistance at the L5-S1 level using a 27-gauge spinal needle. Approximately 15 cc of clear cerebral spinal fluid was obtained and sent to the lab. No radiographs were taken. In fact the s ave screen image was deleted by mistake. The total fluoroscopy time was 0.10 liza tavares. IMPRESSION: Lumbar puncture. [facility]-[id number] Performing Organization Address City/[facility]/Zipcode Phone Number [facility] [address] [place] [address] IgG synthesis rate study (05/07/2019 9:38 AM CDT)Only the most recent of2 resultswithin the time period is included. Pathologist Sig nature IgG albumin ratio, 0.11 0.00 - 0.23 [facility] IgG index, CSF 0.40 0.01 - 0.63 [facility] IgG synthetic rate -1.46 -9.90 - 3.30 [facility] mg/day [facility] Q-albumin ratio, CSF 5.11 2.00 - 7.50 [facility] IgG, CSF 2.05 1.00 - 3.00 [facility] mg/dL [facility] Albumin, CSF 19.43 10.00 - 30.00 [facility] mg/dL [facility] IgG 1,006 700 - 1,600 [facility] mg/dL [facility] Albumin, S 3,800.0 3,640.0 - [facility] 5,304.0 mg/dL [facility] Specimen Serum Performing Organization Address City/[facility]/Zipcode Phone Number [facility] DEPARTMENT OF PATHOLOGY AND [address] [place], [place] [phone] GENOM[address] MED[address]INE [address] [address] Lyme disease reflexive panel, CSF (05/07/2019 9:38 AM CDT) B. burgdorferi Abs 0.02 <=0.99 [facility] JANENE, CSF Comment: When the Borrelia burgdorferi Abs, Total by JANENE resu lt is negative, no further testing is done. INTERPRETIVE INFORMATION: Borrelia burgdorferi Abs, EL RAINE, CSF 0.99 JENNIFER or less: ......... Negative - Antibody to B. burgdo rferi not detected. 1.00 - 1.20 JENNIFER ........... Equivocal - Repeat test ing in 10-14 days may be helpful. 1.21 JENNIFER or greater: ...... Positive - Probable pre sence of antibo dy to B. burgdorferi detected. The detection of antibodies to B. burgdorferi in cereb rospinal fluid may indicate central nervous system infection. However, consideration must be given to possible contamination by blood or transfer of serum antibodies across the blood-brain ba rrier. Current CDC recommendations for the serologic diagnosi s of Lyme disease are to screen with a polyvalent JANENE test and confirm equivocal and positive results with immunoblot. Both IgM and IgG immunoblots should be performed on samples less than 4 weeks after appearance of erythema migrans. Only IgG immunoblot should be performed on samples greater than 4 weeks after the di sease onset. IgM immunoblot in the chronic stage is not recommende d and does not aid in the diagnosis of neuroborreliosis or chroni c Lyme disease. Please submit requests for appropriate immu noblot testing within 10 days. Test developed and characteristics determined by [facility]. See Compliance Statement B: [facility] (PR[facility])/ CS Performed by [facility], [address] [place] [id number] www.[facility] (PRN), Long Cardenas MD - Lab. Director Specimen Cerebrospinal fluid Performing Organization Address [facility] Phone [facility] [address] [place] [address] [facility] [address] [place] [phone] Oligoclonal banding, CSF (05/07/2019 9:38 AM CDT) Protein, CSF 30 15 - 45 OBRIEN mg/dL [facility] Prealbumin, CSF 5.3 3.5 - 11.1 % [facility] Albumin, CSF 62.0 40.8 - 66.2 OBRIEN % [facility] Alpha 1, CSF 2.6 2.3 - 6.4 % [facility] Alpha 2, CSF 7.7 6.1 - 12.6 % [facility] Beta, CSF 15.8 11.7 - 24.1 OBRIEN % [facility] Gamma, CSF 6.6 5.6 - 12.2 % [facility] CSF extended See [place] interpretation CommentComment: A [facility] normal CSF protein [facility] study. No oligoclonal bands are seen. CSF interpretation See [place] CommentComment: [facility] Manan Wayne MD, PhD; [facility] Blnache Huerta MD; Deana Cruz, PhD; Tani Guerrier MD, PhD Specimen Cerebrospinal fluid Performing Organization Address [facility] Hospitalcond Phone Number [facility] DEPARTMENT OF PATHOLOGY AND [address] [place] [address] [phone] [address] CSF cell count with differential (05/07/2019 9:38 AM CDT) Pathologist Sig nature Color, CSF Colorless [facility] Appearance, CSF Clear [facility] RBC, CSF 0 0 - 1 /CMM [facility] WBC, CSF 3 0 - 5 /CMM [facility] CSF mononuclear cell 3/CMM [facility] Specimen Cerebrospinal fluid Performing Organization Address City/[facility] Hospitalcode Phone Number [facility] DEPARTMENT OF PATHOLOGY AND [address] [place] [address] [phone] [address] Myelin basic protein (05/07/2019 9:38 AM CDT) Myelin basic 5.03 0.00 - 5.50 [facility] protein Comment: ng/mL INTERPRETIVE INFORMATION: Myelin Basic Protein Test developed and characteristics determined by [facility]. See Compliance Statement D: [facility] (PRN)/ CS Performed by [facility], [address] [place] [id number] www.[facility] (PRN), Long Cardenas MD - Lab. Director Specimen Cerebrospinal fluid Performing Organization Address [facility] Phone Number [facility] [address] [place] [phone] [facility] [address] [place] [phone] Glucose level, CSF (05/07/2019 9:38 AM CDT) Pathologist Sig nature Glucose, CSF 109 (H) 40 - 70 mg/dL [facility] Specimen Cerebrospinal fluid Performing Organization Address City/[facility] Hospital[facility] Phone Number [facility] DEPARTMENT OF PATHOLOGY AND [address] [place] [address] [phone] [address] POC glucose (05/07/2019 9:11 AM CDT) Pathologist Sig nature POC glucose 180 (H) 65 - 99 mg/dL [facility] Comment: HOSPITAL No Action Needed Meter ID: [id number] Industrial Relations Commissioner: Stu Aviles Specimen Performing Organization Address City/[facility]/Zipcode Phone Number [facility] DEPARTMENT OF PATHOLOGY AND [address] [place] [phone] [facility] [address] [place] [address] Hemoglobin A1c (05/06/2019 9:52 AM CDT) Hemoglobin A1C 9.6 (H) 4.0 - 5.6 % [facility] Comment: HOSPITAL HbA1c cutoffs for diagnosing diabetes: 4.0% - 5.6% = normal 5.7% - 6.4% = increased risk for diabetes (prediabetes ) >=6.5% = diabetes Goals for glycemic control (ADA 2016) < 7.0% Target for non adults with diabetes. More or less stringent targets may be appropriate for individual patients. <7.5% Target for Children and adolescents with type 1 diabetes. Specimen Blood Performing Organization Address City/State/Zipcode Phone Number [facility] DEPARTMENT OF PATHOLOGY AND [address] [place] [address] [address] EMG general request (05/05/2019 3:47 PM CDT) Impressions Performed At Mr. Luevano complains of progressive weakness and fasc iculations, and is being evaluated for motor neuron disease . 1) Right median responses are absent; ri ght ulnar motor latency is borderline normal with slowed velocity a nd very small amplitudes. 2) Phrenic motor latencies are bilateral ly normal with slightly small amplitudes. 3) Peroneal and tibial motor latencies a nd velocities are bilaterally normal with low normal amplitudes, all a s noted above. 4) Repetitive stimulations are abnormal at rest for th e right ulnar nerve without post-exercise assessments due to the patient s inability to exercise; repetitive stimulations of as the right XI n erve are normal, as noted above. 5) Right median palmar, median digital, ulnar and bila teral sural sensory responses are normal. 6) Intramuscular recordings of the right arm, bilateral legs, bilateral diaphragm and bilateral thoracic paraspi nous (level T3-T11) muscles suggest severe acute and chronic denerva tion as noted above. 7) Intramuscular recordings of the tongu e (genioglossus) are normal, without denervation. 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 Enrike Daniel M.D. Narrative Performed At This result has an attachment that is no t available. NERVE CONDUCTION AND ELECTROMYOGRAPHY REPORT [facility] [place], [facility]; [place], [place] [address]; Teleph one [phone] Name: Beto Luevano Date of Procedure: May 05, 2019 Location: Sex: Male Date of : 63 Referring Physician: Sourav Velazco M.D. FAX: Patient is 5 6 ; 166 lbs.; RA 33.4 C; RL 30.8 C; LL 31.7 C Nerve Conduction (Latencies in msec, Amp. (Motor mV; Sensory uV, Dist. cm, Velocity Right Motor Nerves Dist. Lat. Prox lat. D. amp. P. Amp. Dist. Velocity Right Median 4.3 absent 0.4 absent Right Ulnar (below elb) 3.0 6.1 1.9 0.8 13.8 44. 7 Right Peroneal 4.9 12.8 1.8 1.3 32.5 41.0 Right Tibial 4.0 12.8 6.5 3.7 34.3 38.8 Right Phrenic 7.2 0.4 Right Sensory Nerves Dist. Lat. Prox lat. Dist. amp. Prox Amp. Distance Velocity Right Median Palmar 2.1 81.0 8.0 Right Median Digital 3.1 29.7 13.0 Right Ulnar 2.7 17.7 11.0 Right Sural 3.5 23.7 14.0 Left Motor Nerves Dist. Lat. Prox lat. D. amp. P. Amp. Dist. Velocity Left Peroneal 4.3 11.3 3.0 2.0 29.4 42.0 Left Tibial 4.0 12.3 5.5 4.6 34.7 41.6 Left Phrenic 7.3 0.4 Left Sensory Nerves Dist. Lat. Prox lat. Dist. a mp. Prox Amp. Distance Velocity Left Sural 3.8 20.3 14.0 Electromyography (Motor Unit in mV; H=High; L=Low; P=P olyphasic; NS=Non-specific) Right Arm Fibs. Pos. Waves Fasc. Polyphasia Motor Units Recruitment Deltoid 2 2 EP 30HP wnl -2 Biceps 2 2 RP 30HP wnl -2 Triceps 3 3 RP 50HP wnl -3 Brachioradialis 4 4 wnl 100HP all polys -4 Ext. Dig. Comm. 4 4 wnl no motor units -0 lst D. Interosseous 4 4 wnl no motor units -0 Right Leg Fibs. Pos. Waves Fasc. Polyphasia Motor Units Recruitment Vas. Medialis 2 2 RP 30HP wnl -2 Ant. Tibialis 3 3 RP 50HP wnl -3 Peroneus Longus 3 3 RP 50HP wnl -3 Gastronemius wnl wnl wnl wnl wnl -3 Ext. Dig. Brevis 2 2 wnl 50HP wnl -3 Diaphragm Fibs. Pos. Waves Fasc. Polyphasia Motor Units Recruitment Right R R EP 20HP wnl -1 Left R R EP 20HP wnl -1 Left Leg Fibs. Pos. Waves Fasc. Polyphasia M otor Units Recruitment Vas. Medialis 2 2 RP 30HP wnl -2 Ant. Tibialis 3 3 RP 50HP wnl -3 Peroneus Longus 3 3 RP 50HP wnl -3 Gastronemius wnl wnl wnl wnl wnl -3 Ext. Dig. Brevis 2 2 wnl 50HP wnl -3 Thoracic Paraspinous (T3-T11 level): Right: 2 2 RP wnl wnl wnl Left: 2 2 RP wnl wnl wnl Genioglossus (tongue): Right: wnl wnl wnl wnl wnl wnl Repetitive stimulations: Repetitive stimulations at 3 Hz. of the right ulnar ne rve (recording from ADM) are abnormal: At rest: 14.2% decrement; unable to exercise. Repetitive stimulations at 3 Hz. of the right XI nerve (recording from trapezius), before and after exercise, are normal, wit hout significant increment or decrement in the response: At rest: 6.6% decrement; immediately post-exercise: 0.0% decrement; one minute post-exercise: 2.8% decrement; two minutes post-exercise: 0.0% decrement; three minutes post-exercise: 8.5% decrement. ECG 12 lead (05/05/2019 12:27 PM CDT) Pathologist Sig nature Ventricular rate 102 [facility] Atrial rate 100 [facility] QRSD interval 88 [facility] QT interval 286 [facility] QTC interval 372 [facility] QRS axis [address] [facility] MUSE T wave axis 51 [facility] MUSE EKG impression Atrial fibrillation [facility] MUSE with rapid ventricular response-Abnormal ECG-No previous ECGs available-Electronicall y Signed By Tani Aldana MD ([id number]) on 05/05/2019 8:30:59 PM Specimen Narrative Performed At This result has an attachment that is no t available. Performing Organization Address City/[facility] Phone Number [facility] MUSE [address] [place] [address] Spirometry, MIPS/MEPS (05/05/2019 7:33 AM CDT) Pathologist Sig nature FEV1 Pre 2.22 2.61 - 3.98 L [facility] FEV1/FVC % Pre 75.87 69.12 - 87.32 % [facility] FVC Pre 2.93 3.43 - 5.04 L [facility] PEF Pre 4.62 6.29 - 11.02 L/s [facility] FEF 25-75% Pre 1.88 1.58 - 4.64 L/s [facility] FEV1 Predicted 3.29 [facility] FEV1 LLN 2.61 [facility] FEV1 % Pre of Predicted 67.4 % [facility] FVC Predicted 4.23 [facility] FVC LLN 3.43 [facility] FVC % Pre of Predicted 69.1 % [facility] FEV1/FVC % Predicted 78 [facility] FEV1/FVC % LLN 69 [facility] FEV1/FVC % Pre of 97.0 % [facility] Predicted FEF 25-75% Predicted 3.11 [facility] FEF 25-75% LLN 1.58 [facility] FEF 25-75% % Pre of 60.4 % [facility] Predicted PEF Predicted 8.65 [facility] PEF LLN 6.29 [facility] PEF % Pre of Predicted 53.4 % [facility] Specimen Narrative Performed At This result has an attachment that is no t available. Performing Organization Address City/State/Zipcode Phone Number [facility] [address] [place] [address] Estimated GFR (05/05/2019 7:08 AM CDT) Estimated GFR >=90 mL/min/1.73 [facility] Comment: m2 HOSPITAL Catergory Units Interpretation G1 >=90 Normal or high G2 60-89 Mildly decreased G3a 45-59 Mildly to moderately decreas ed G3b 30-44 Moderately to severely decre ased G4 15-29 Severely decreased G5 <15 Kidney failure The eGFR was calculated using the Chronic Kidney Disea se Epidemiology Collaboration (CKD-EPI) equation. Interpretation is based on recommendations of the National Kidney Foundation-Kidney Disease Outcomes Ronald lity Initiative (NKF-KDOQI) published in 2014. Specimen Plasma specimen Performing Organization Address City/State/Zipcode Phone Number [facility] DEPARTMENT OF PATHOLOGY AND [address] [place] [address] Syphilis total antibody (05/05/2019 7:08 AM CDT) Syphilis total Non-reactiveComment Non-reactive [facility] antibody : No serological HOSPITAL evidence of syphilis infection. Specimen Serum Narrative Performed At [facility] results called to and read back by [facility] DEPARTMENT OF PATHOLOGY AND [facility] LUIS PICKARD/ISSA(name/location)at MEDICINE 05/05/2019 10:12 (date/time) by PR1. Performing Organization Address City/[facility]/Zipcode Phone Number [facility] DEPARTMENT OF PATHOLOGY AND [address] [place] [address] HIV Ag/Ab combination (05/05/2019 7:08 AM CDT) Pathologist [facility] HIV Ag/Ab combination Non-reactive Non-reactive [facility] Specimen Blood Performing Organization Address [facility]/Zipcode Phone Number [facility] DEPARTMENT OF PATHOLOGY AND [address] [place] [address] HTLV I/II Ab with reflex to confirmation (05/05/2019 7:08 AM CDT) Pathologist Sig nature HTLV I/II Ab Negative Negative [facility] REF [facility] Comment: Based on the non-reactive anti-HTLV JANENE screen, the HTLV Western Blot is not indicated and therefore not performed. INTERPRETIVE INFORMATION: HTLV I/II Antibodies w/Ref alicia to Confirm This assay should not be used for blood donor screenin g, associated re-entry protocols, or for screening Human Cell, Tissues and Cellular and Tissue-Based Products (HCT/P) . Performed by [facility], [address] [place] [id number] [email or web address] (PRN), Long Cardenas MD - Lab. Director Specimen Serum Narrative Performed At [facility] results called to and read back by [facility]UANITA GROVES/ISSA(name/location)at 05/05/2019 10:12 (date/time) by PR1. Performing Organization Address [facility] Phone Number [employer] [facility] [employer] LABORATORY [address] [place] [address] [facility] [address] [place] [address] Acetylcholine receptor binding Ab (05/05/2019 7:08 AM CDT) Acetylcholine 0.0 0.0 - 0.4 [facility] receptor binding Ab Comment: nmol/L INTERPRETIVE INFORMATION: Acetylcholine Binding Ab Negative ....... 0.0 - 0.4 nmol/L Positive ....... 0.5 nmol/L or greater Approximately 85-90 percent of patients with myastheni a gravis (MG) express antibodies to the acetylcholine receptor (AChR), which can be divided into binding, blocking, and modul ating antibodies. Binding antibody can activate complement a nd lead to loss of AChR. Blocking antibody may impair binding of acetylcholine to the receptor, leading to poor muscle contraction. Modulating antibody causes receptor endocytosis result ing in loss of AChR expression, which correlates most closely with clinical severity of disease. Approximately 10-15 percent of in dividuals with confirmed myasthenia gravis have no measurable bi nding, blocking, or modulating antibodies. Test developed and characteristics determined by [facility]. See Compliance Statement B: [employer]/ Performed by [facility], [address] [place] [id number] [email or web address] (PRN), Long Cardenas MD - Lab. Director Specimen Serum Narrative Performed At [facility] results called to and read back by LUIS GROVES/ISSA(name/location)at 05/05/2019 10:12 (date/time) by PR1. Performing Organization Address [facility]/Zipcode Phone Number [employer] [facility] [address] [place] [address] [facility] [address] [place] [address] B. burgdorferi Abs total, serum (05/05/2019 7:08 AM CDT) B. burgdorferi 0.38 0.00 - 1.20 [facility] antibodies Comment: INTERPRETIVE INFORMATION: Borrelia Burgdorferi Abs,Tot al by JANENE 0.99 JENNIFER or Less: ...... Negative: Antibody to B. burgdorferi no t detected. 1.00 - 1.20 JENNIFER......... Equivocal: Repeat testing in 10-14 days may be helpful. 1.21 JENNIFER or Greater: ... Positive: Probable presenc e of antibody to B. burgdorferi detected. Performed by [facility], [address] [place] [address] [email or web address] (PRN), Long Cardenas MD - Lab. Director Specimen Serum Narrative Performed At [facility] results called to and read back by LUIS GROVES/CHONU(name/location)at 05/05/2019 10:12 (date/time) by PR1. Performing Organization Address City/State/Zipcode Phone Number [employer] [facility] [address] [place] [address] [facility] [address] [place] [address] MARIE titer (05/05/2019 7:08 AM CDT) Pathologist Sig nature MARIE titer 1:80 (A) Not-Detected [facility] MARIE pattern Spindle (A) Not-Detected [facility] Specimen Blood Narrative Performed At [facility] results called to and read back by [facility] DEPARTMENT OF PATHOLOGY AND GENOMIC LUIS PICKARD/OPTU(name/location)at [facility] 05/05/2019 10:12 (date/time) by PR1. Performing Organization Address City/State/Zipcode Phone Number [facility] DEPARTMENT OF PATHOLOGY AND [address] [place], [place] [address] GENOMIC MEDICINE [address] [address] Vitamin D 25 hydroxy level (05/05/2019 7:08 AM CDT) Pathologist [facility] Vitamin D, 20.3 (L) 30.0 - 150.0 [facility] 25-hydroxy Comment: ng/mL HOSPITAL This assay reports the sum of 25-hydroxy vitamin D3 an d 25-hydroxy vitamin D2. Reference range: 0-17 years: Deficiency: less than 20ng/mL Optimum level: greater than or equal to 20 ng/mL. 18 years and older: Deficiency: less than 20ng/mL Insufficiency: 20-29 ng/mL Optimum Level: 30-80 ng/mL The assay reportable range is 3.4 155.9 ng/mL. Level s higher than 150 ng/mL may be associated with toxicity. If toxicity is clinically suspected and the reported r esult is >155.9 ng/mL,contact lab for alternative methods to obtain a definitive level. If separate quantitation of 25-hydroxy vitamin D3 and 25-hydroxy vitamin D2 is needed, please contact lab for alternative methods. Specimen Blood Narrative Performed At [facility] results called to and read back by [facility] DEPARTMENT OF PATHOLOGY AND GENOMIC LUIS PICKARD/ISSA(name/location)at [facility] 05/05/2019 10:12 (date/time) by PR1. Performing Organization Address City/State/Zipcode Phone Number [facility] DEPARTMENT OF PATHOLOGY AND [address] [place], [place] [address] [facility] [address] [place] [address] CBC with platelet and differential (05/05/2019 7:08 AM CDT) WBC 6.81 4.50 - 11.00 [facility] [place] [facility] k/uL [facility] RBC 4.77 4.40 - 6.00 [facility] HGB 14.7 14.0 - 18.0 [facility] g/dL [facility] HCT 42.6 41.0 - 51.0 % [facility] MCV 89.3 82.0 - 100.0 [facility] MCH 30.8 27.0 - 34.0 pg [facility] MCHC 34.5 31.0 - 37.0 [facility] g/dL [facility] RDW - SD 40.3 37.0 - 55.0 fL [facility] MPV 12.0 8.8 - 13.2 fL [facility] Platelet count 171 150 - 400 k/uL [facility] Nucleated RBC 0.00 /100 WBC [facility] Neutrophils 64.8 39.0 - 69.0 % [facility] Lymphocytes 20.0 (L) 25.0 - 45.0 % [facility] Monocytes 9.3 0.0 - 10.0 % [facility] Eosinophils 5.1 (H) 0.0 - 5.0 % [facility] Basophils 0.4 0.0 - 1.0 % [facility] Immature granulocytes 0.4Comment: 0.0 - 1.0 % [facility] granulocytes" (promyelocytes , myelocytes, metamyelocytes ) Specimen Blood Performing Organization Address City/State/Zipcode Phone Number [facility] DEPARTMENT OF PATHOLOGY AND [address] [place] [address] [phone] [address] Rheumatoid factor (05/05/2019 7:08 AM CDT) Pathologist Sig nature Rheumatoid factor <10 0 - 13 IU/mL [facility] Specimen Plasma specimen Narrative Performed At [facility] results called to and read back by [facility] DEPARTMENT OF PATHOLOGY AND [facility] LUIS PICKARD/CHONU(name/location)at MEDICINE 05/05/2019 10:12 (date/time) by PR1. Performing Organization Address [facility] Phone Number [facility] DEPARTMENT OF PATHOLOGY AND [address] [place] [address] [phone] [address] CRP high sensitivity (05/05/2019 7:08 AM CDT) CRP, high 11.65 mg/L [facility] sensitivity Comment: [facility] Please note this test is different from the C-Reactive Protein HOSPITAL (CRP) assay. CRP is a nonspecific marker of inflammati on and its levels rise in the presence of conditions such as infection and inflammatory disorders. Persistent low levels of C RP can be measured with a high-sensitivity assay (hsCRP) and a re associated with increased risks for atherosclerotic di seases. High-Sensitivity CRP (hsCRP) results are used to assig n risk for stroke, acute myocardial infarction and peripheral vascular disease as follows: Low risk: < 1.00 mg/L Average risk: 1.00 - 3.00 mg/L High risk: > 3.00 - 10.00 mg/L Indeterminate: > 10.00 mg/L * *May be indicative of another source of inflammation or infection Specimen Plasma specimen Performing Organization Address City/[facility]/Zipcode Phone Number [facility] DEPARTMENT OF PATHOLOGY AND [address] [place] [address] [phone] [place] [address] MARIE (05/05/2019 7:08 AM CDT) Pathologist Sig bernadine MARIE screen Positive (A) Negative [facility] Specimen Blood Narrative Performed At [facility] results called to and read back by [facility] DEPARTMENT OF PATHOLOGY AND [facility] LUIS PICKARD/ISSA(name/location)at MEDICINE 05/05/2019 10:12 (date/time) by PR1. Performing Organization Address City/[facility] Phone Number [facility] DEPARTMENT OF PATHOLOGY AND [address] [place] [address] [phone] [address] Thyroid stimulating hormone (05/05/2019 7:08 AM CDT) Pathologist Sig [facility] TSH 2.39 0.27 - 4.20 uIU/mL [facility] ITAL Specimen Plasma specimen Performing Organization Address City/[facility] Phone Number [facility] DEPARTMENT OF PATHOLOGY AND [address] [place] [address] [address] [address] T4, free (05/05/2019 7:08 AM CDT) Pathologist [facility] T4, free 1.3 0.9 - 1.7 ng/dL [facility] L Specimen Plasma specimen Performing Organization Address City/[facility] Phone Number [facility] DEPARTMENT OF PATHOLOGY AND [address] [place] [address] [address] [address] Serum electrophoresis (05/05/2019 7:08 AM CDT) Protein 7.6 6.3 - 8.3 [facility] Comment: g/dL HOSPITAL 4.6-7.0 g/dL 1 week 4.4-7.6 g/dL 7 months-1year 5.1-7.3 g/dL 1-2 years 5.6-7.5 g/dL >3 years 6.0-8.0 g/dL 18-150 6.3-8.3 g/dL SPE albumin 4.92 4.00 - 5.30 [facility] g/dL [facility] SPE alpha 1 0.15 0.10 - 0.25 [facility] g/dL [facility] SPE alpha 2 0.77 0.58 - 0.84 [facility] g/dL [facility] SPE beta 0.95 0.50 - 1.10 [facility] g/dL [facility] SPE gamma 0.81 0.60 - 1.30 [facility] g/dL [facility] SPE extended See [facility] interpretation CommentComment: HOSPITAL A normal serum protein study. SPE interpretation See [facility] CommentComment: [facility] Manan Wayne MD, PhD; Blanche Huerta MD; Deana Cruz, PhD; Tani Guerrier MD, PhD Specimen Serum Performing Organization Address City/[facility] Phone Number [facility] DEPARTMENT OF PATHOLOGY AND [address] [place] [address] [place] [address] Parathyroid hormone (05/05/2019 7:08 AM CDT) Pathologist [facility] PTH 37 15 - 65 pg/mL [facility] Specimen Blood Performing Organization Address [facility] Phone Number [facility] DEPARTMENT OF PATHOLOGY AND [address] [place] [address] Folate level (05/05/2019 7:08 AM CDT) Pathologist [facility] Folate 18.2 4.8 - 24.2 ng/mL [facility] Specimen Serum Performing Organization Address [facility] Phone Number [facility] DEPARTMENT OF PATHOLOGY AND [address] [place] [address] [place] [address] Vitamin B12 level (05/05/2019 7:08 AM CDT) Pathologist [facility] Vitamin B12 753 089 - 137 [facility] Comment: pg/mL HOSPITAL Significant overlap exists between normal and deficien cy states. However, most patients with deficiencies will have Ser um B12 <200 pg/mL. Specimen Serum Performing Organization Address [facility] Phone Number [facility] DEPARTMENT OF PATHOLOGY AND [address] [place] [address] Creatine kinase, total (CPK) (05/05/2019 7:08 AM CDT) Pathologist Sig nature Creatine kinase 195 39 - 308 U/L [facility] Specimen Plasma specimen Performing Organization Address City/[facility]/Zipcode Phone Number [facility] DEPARTMENT OF PATHOLOGY AND [address] [place], [place] [address] [facility] [address] [place] [address] Lipid panel (05/05/2019 7:08 AM CDT) Cholesterol 280 (H) <200 mg/dL [facility] Triglycerides 1,061 (A) <150 mg/dL [facility] HDL cholesterol 26 (L) >40 mg/dL [facility] LDL cholesterol 86Comment: Result <100 mg/dL [facility] obtained by direct [facility] LDL measurement [facility] Lipid panel [facility] interpretation Comment: [facility] Total Cholesterol (mg/dL) HOSPIT AL <200 Desirable 200-239 Borderline-high >=240 High Triglycerides (mg/dL) <150 Normal 150-199 Borderline-high 200-499 High >=500 Very high HDL Cholesterol (mg/dL) <40 Low (male) <40 Low (female) LDL Cholesterol (mg/dL) <100 Optimal 100-129 Near or above optimal 130-159 Borderline-high 160-189 High >=190 Very high Risk Catergories that modify LDL goals. Risk Catergories LDL goal (mg/d L) CHD and CHD risk equivalent <100 (10-year risk >20%) Multiple (2+) risk factors <130 (10-year risk =<20%) 0-1 risk factors <160 (<10-year risk) Defining levels of lipids in metabolic syndrome Triglycerides >=150 mg/dL HDL Cholesterol Men <40 mg /dL Women <40 mg/ dL Non-HDL cholesterol is a second target for therapy in persons with high triglycerides (>=200 mg/dL) Specimen Plasma specimen Performing Organization Address City/State/Zipcode Phone Number [facility] DEPARTMENT OF PATHOLOGY AND [address] [place], [place] [address] [facility] [address] [place] [address] Basic metabolic panel (05/05/2019 7:08 AM CDT) Pathologist Sig nature Sodium 137 135 - 148 mEq/L [facility] Potassium 4.1 3.5 - 5.0 mEq/L [facility] Chloride 99 98 - 112 mEq/L [facility] CO2 23 (L) 24 - 31 mEq/L [facility] Anion gap 15@ANIO 7 - 15 mEq/L [facility] BUN 20 6 - 20 mg/dL [facility] Creatinine 0.88 0.70 - 1.20 mg/dL [facility] Glucose 256 (H) 65 - 99 mg/dL [facility] Calcium 9.9 8.3 - 10.2 mg/dL [facility] Specimen Plasma specimen Performing Organization Address City[facility]State/[facility] Phone Number [facility] DEPARTMENT OF PATHOLOGY AND [address] [place] [phone] GENOMIC MEDICINE [facility] [address] [place] [address] after 04/17/2019 Advance Directives For more information, please contact: [phone] Type Date Recorded Patient Secondary Teacher Explanati on Advance Directives, Living Will and Medical Power of Glove Wrapper
--- OUTSIDE RECORDS SUMMARY | 2020-04-17 02:23 | XMS REPORT | Continuity of Care Document ---
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 02/26/2020 [facility] (disorder) 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 Ne uro (disorder) Medications Medication Details Route Status Patient Ordering Order Source Instructions Provider Date riluzole 50 mg 50 mg = 1 Active 02/23/20 [facility] oral tablet tab, PO, 20 Neuro Q12H, # 60 tab, 0 Refill(s) Riluzole 50 mg, PO, Active 07/16/20 [facility] Q12H, X 30 19 [facility] day, 0 Refill(s) Xarelto 20 mg, PO, Active 01/29/20 [facility] Daily, 0 19 Neuro Refill(s) Metformin 1,000 mg, Active 01/29/20 [facility] PO, Daily, 19 Neuro 0 Refill(s) Lisinopril 30 mg, PO, Active 01/29/20 [facility] Daily, 0 19 Neuro Refill(s) Gemfibrozil 600 mg, Active 01/29/20 [facility] PO, BID, 0 19 Neuro Refill(s) carvedilol PO, 0 Active 01/29/20 [facility] Refill(s) 19 [facility] Allergies, Adverse Reactions, Alerts Substance Category Reaction Severity Reaction Status Date Comments S ource type Reported No Known Assertion Drug Misch er Medication allergy Neuro Allergies Immunizations No Data Provided for This Section Results No Data Provided for This Section Pathology Reports No Data Provided for This Section Diagnostic Reports No Data Provided for This Section Consultation Notes No Data Provided for This Section Discharge Summaries No Data Provided for This Section History and Physicals No Data Provided for This Section Vital Signs Vital Sign Value Date Comments Source Systolic (mm Hg) 114 02/23/2020 [facility] Diastolic (mm Hg) 96 02/23/2020 [facility] Heart Rate 105 02[facility] Respitory Rate 16 02/23/2020 [facility] [place] [facility] Temperature Oral (F) 96.0 F 02/23/2020 [facility] Height 162.56 cm 02/23/2020 [facility] Weight 75 02/23/2020 [facility] [place] [facility] BMI Calculated 28.38 02/23/2020 [facility] [place] [facility] Systolic (mm Hg) 127 07/16/2019 [facility] Diastolic (mm Hg) 100 07/16/2019 [facility] [place] Heart Rate 91 07/16/2019 [facility] [place] [facility] Respitory Rate 16 07/16/2019 [facility] [place] [facility] Height 165.1 cm 07/16/2019 [facility] Weight 75.909 07/16/2019 [facility] [place] [facility] BMI Calculated 27.85 07/16/2019 [facility] [place] [facility] Weight 77.273 04/16/2019 [facility] [place] [facility] BMI Calculated 28.35 04/16/2019 [facility] Height 165.1 cm 04/16/2019 [facility] Heart Rate 101 04/16/2019 [facility] Respitory Rate 16 04/16/2019 [facility] Systolic (mm Hg) 125 04/16/2019 [facility] Diastolic (mm Hg) 78 04/16/2019 [facility] BMI Calculated 29.41 03/04/2019 [facility] Weight 77.727 03/04/2019 [facility] Height 162.56 cm 03/04/2019 [facility] Heart Rate 93 03/04/2019 [facility] [place] [facility] Respitory Rate 16 03/04/2019 [facility] Systolic (mm Hg) 137 03/04/2019 [facility] Diastolic (mm Hg) 115 03/04/2019 [facility] Weight 33.636 01/28/2019 [facility] [place] [facility] BMI Calculated 12.34 01/28/2019 [facility] Height 165.1 cm 01/28/2019 [facility] Respitory Rate 16 01/28/2019 [facility] Heart Rate 95 01/28/2019 [facility] Systolic (mm Hg) 127 01/28/2019 [facility] Diastolic (mm Hg) 84 01/28/2019 [facility] Encounters Location Location Encounter Encounter Reason Attending ADM OR Stat us Source Details Type Number For Provider Date Date Visit [facility] Outpatient [id number] Delfino 01/28 01/29 [facility] [id number] Delfino 03/04 [facility] [id number] Sammy 03/04 03/05 [facility] [id number] Delfino 04/02 [facility] [id number] Delfino 04/02 04/02 [facility] [id number] Delfino 04/16 Active [facility] [id number] Delfino 04/16 04/17 [facility] [id number] Delfino 07/16 [facility] [id number] Delfino 07/16 Active [facility] [id number] Delfino 07/16 07/16 [facility] [id number] Delfino 07/16 07/17 [facility] [id number] Delfino 11/17 [facility] [id number] Delfino 11/17 11/17 [facility] [id number] Delfino 02/22 [facility] [place] [facility] [id number] Sammy 02/22 02/23 [facility] [id number] Delfino 08/25 [facility] [id number] Delfino 08/25 [facility] Procedures No Data Provided for This Section Assessment and Plan No Data Provided for This Section Plan of Care No Data Provided for This Section Social History Social History Date Source Social History TypeResponse 07/16/2019 [facility] Alcohol Type Beer, Wine, Liquor.1 Employment/School 2 Smoking Status Unknown if ever smoked; 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
--- OUTSIDE RECORDS SUMMARY | 2020-04-17 02:23 | XMS REPORT | Summary of Care ---
:1965 Author Organization [facility] [place] Address [address] [place] [address]- Encounter [facility] Renee(MIGUELITO) [id number] Date(s): 02/23/20 - 02/23/20 [facility] [address] [place] [address]- [phone] Discharge Disposition: Home or Self Care Attending Physician: Delfino Mcrae MD Referring Physician: Sammy Ordaz MD Vital Signs Most recent to oldest [Reference Range]: 1 Height 162.56 cm (02/23/20 11:47 AM) Temperature Oral [96.4-99.1 DegF] 96.0 DegF *LOW* (02/23/20 11:47 AM) Blood Pressure [90-140/60-90 mmHg] 114/96 mmHg (02/23/20 11:47 AM) Respiratory Rate [14-20 BRMIN] 16 BRMIN (02/23/20 11:47 AM) Peripheral Pulse Rate [60-100 bpm] 105 bpm *HI* (02/23/20 11:47 AM) Weight 75 kg (02/23/20 11:47 AM) Body Mass Index 28.38 m2 (02/23/20 11:47 AM) Problem List Condition Effective Dates Status Health Status Informant ALS (amyotrophic lateral Active sclerosis)(Confirmed) A-fib(Confirmed) Active Cervical myelopathy(Confirmed) Resolved Diabetes mellitus(Confirmed) Active Hyperlipidemia(Confirmed) Active Hypertension(Confirmed) Active Amyotrophy(Confirmed) Active Allergies, Adverse Reactions, Alerts No Known Medication Allergies Medications riluzole 50 mg oral tablet 50 mg = 1 tab, PO, Q12H, # 60 tab, 0 Refill(s) Start Date: 02/23/20 Status: Ordered Results No data available for this section Immunizations No data available for this section Procedures No data available for this section Social History Social History Type Response Alcohol Type Beer, Wine, Liquor.1 Employment/School 2 Smoking Status Unknown if ever smoked; Expo sure to Tobacco Smoke Unable to obtain; Cigarette Smoking Last 365 Days Unable to obtain; Reg Smoking Cessation Counseling No entered on: 02/23/20 1Drink occasionally on [email or web address] releas medical information to -Atiya Cabello Assessment and Plan No data available for this section
--- OUTSIDE RECORDS SUMMARY | 2020-04-17 02:25 | XMS REPORT | Continuity of Care Document ---
:1965 Author Organization [facility] t Address [facility] [place] [address] Care Team Providers Name Role Phone Rose Ordaz MD Primary Care Physician Chapis SERVIN Attending Clinician Unavailable David Attending Clinician Unavailable Con Mcrae Attending Clinician Alicia KASPER Attending Clinician Unavailable Marques Velazco MD Attending Clinician Iggy SERVIN Attending Clinician Unavailable Sloan Hernandez MD Attending Clinician Albert Attending Clinician Unavailable Jose Flores Attending Clinician Unavailable Payers Payer Name Policy Type Policy Number Effective Date Expiration Date S otis [id number] xxxxxxxxxxxx 2019 [facility] CHOICE 00:00:00 Taoist PPO/FEDERAL EMPL PPOxxxxxxxxxxx x2019-Pres entPPO Problems Condition Condition Condition Status Onset Resolution Last Treating Co mments Source Name Details Category Date Date Treatment Clinician Date Spasticity Spasticity Disease [place] [facility]: [facility] 00 Risk for Risk for Disease Active [place] falls 10-29 Methodi 00:00: st 00 Muscle Muscle Disease Active [facility] cramping cramping 8 Method i 00:00: st 00 Atrial Atrial Disease Active [facility] fibrillati fibrillati 7-31 Me thodi on on 00:00: st 00 Neuropathy Neuropathy Problem Active [facility] 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 [facility] Essential Essential Problem Active [facility] hypertensi hypertensi Isabella kes - on on [facility] Pure Pure Problem Active [facility] hyperchole hyperchole Isabella kes - sterolemia sterolemia Me moria l [facility] History of History of Problem Active C [facility] alcoholism alcoholism Isabella kes - Mem[facility] Atrial Atrial Diagnosis Active [facility] fibrillati fibrillati Isabella kes - on, on, Memoria unspecifie unspecifie l d type d type [facility] Acute gout Acute gout Problem Active [facility] of right of right [facility] - foot, foot, Memoria unspecifie unspecifie l d cause d cause [facility] ALS ALS Problem Active [facility] (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 Me moria sclerosis) sclerosis) l [facility] ent Clinics Cervical Problem Resolve 2020-02-26 Me moria myelopathy d 00:26:35 l (disorder) Cervical He rmann myelopathy (disorder) [facility] Diabetes Problem Active 2020-02-26 [facility] oria mellitus 00:26:35 l (disorder) Diabetes He rmann mellitus (disorder) Active Problem 02/26/2020 [facility] Hyperlipid Problem Active 2020-02-26 M emoria emia 00:26:35 l (disorder) Joaquin n Hyperlipid emia (disorder) Active Problem 02/26/2020 [facility] Hypertensi Problem Active 2020-02-26 M emoria ve 00:26:35 l disorder, [place] systemic Hypertensi arterial ve (disorder) disorder, systemic arterial (disorder) Active Problem 02/26/2020 [facility] Muscle Problem Active 2020-02-26 Memor ia atrophy 00:26:35 l (disorder) Muscle Herm blanca atrophy (disorder) Active [facility] ALS ALS Disease Active [facility] (amyotroph (amyotroph Me thodi ic lateral ic lateral st sclerosis) sclerosis) Muscle Muscle Disease Active [facility] weakness weakness Method i st History of Past Illness Condition Condition Condition Status Onset Resolution Last Treating Co mments Source Name Details Category Date Date Treatment Clinician Date Cranial Cranial Disease Resolve 2019-05-06 2019-05-06 Micah nerve nerve d 00:00:00 15:49:51 Method i lesion lesion [address] Myasthenia Myasthenia Disease Resolve 2019-05-06 2019-05-06 [facility] gravis gravis d 00:00:00 15:49:53 Method i with with [address] exacerbati exacerbati on on Allergies, Adverse Reactions, Alerts Allergy Allergy Status Severity Reaction(s) Onset Inactive Treating Comm ents Source Name Type Date Date Clinician Ibuprofe Propensi Active Hives [place] n ty to 730 Methodi adverse 00:00: st reaction 00 s to drug Ibuprofe Adverse Active Info Not [facility] Reaction [facility] No Known No Known Active Memori a Medicati Medicati l on on [place] Allergie Allergie s s Family History Family Member Diagnosis Comments Start Date Stop Date Source Natural father Diabetes [facility] thodi Natural mother Hypertension [facility] Social History Social Habit Start Date Stop Date Quantity Comments Source Sex Assigned At [facility] ethodist Alcohol intake 2019-09-18 2019-09-18 Current drinker [place] [facility]ist 00:00:00 00:00:00 of alcohol (finding) Social History 2019-07-16 2019-07-16 [facility] 18:30:27 18:30:27 Smoking Status Start Date Stop Date Source Former smoker 2019-09-18 00:00:00 2019-09-18 00:00:00 [facility] Medications Ordered Filled Start Stop Current Ordering Indication Dosage Frequency Signature Comments Components Source Medication Medication Date Date Medication? Clinician (SIG) Name Name riluzole 50 Yes 50 mg = 1 M emoria mg oral 5-19 tab, PO, l tablet 17:03: Q12H, # 60 Florecita nn 00 tab, 0 Refill(s) riluzole 2020- Yes 50mg Q12H Take 1 [place] (RILUTEK) 02-01 tablet (50 Met hodi 50 mg 00:00: 23:59 mg total) st tablet 00 :00 by mouth every 12 (twelve) hours. riluzole 2019- No ALS 50mg Q12H TAKE 1 [place] (RILUTEK) 01-06 (amyotrophi TABLET (50 Methodi 50 mg 00:00: 00:00 c lateral MG TOTAL) s t tablet 00 :00 sclerosis) BY MOUTH (HCC) EVERY 12 (TWELVE) HOURS. Janumet XR Janumet XR Yes Ailyn [address] 2-11 [facility] with [facility] - 00:00: evening [facility]oria 00 meal l [facility] riluzole 2020-0 2020- No 50mg Q12H Take 1 [place] (RILUTEK) 2-04 04-02 tablet (50 Met hodi 50 mg 00:00: 00:00 mg total) st tablet 00 :00 by mouth every 12 (twelve) hours. aspirin 2018-10 Yes 81mg QD Take 81 mg [place] (ECOTRIN) 2-13 by mouth Method i 81 MG 07:47: daily. st enteric 28 coated tablet docosahexan 2018-10 Yes Take by Ke stolive oic 2-13 mouth. Methodi acid/epa 07:47: st (FISH OIL 28 ORAL) multivitami 2018-10 Yes 1{tbl} QD Take 1 [place] 2-13 tablet by Methodi (THERAGRAN) 07:47: mouth st tablet 28 daily. lisinopril 2018-10 Yes 20mg QD Take 20 mg [place] (PRINIVIL) 2-13 by mouth Metho di 20 mg 07:47: daily. st tablet 28 metFORMIN 2018-10 Yes 1000mg QD Take 1,000 Obrien (GLUCOPHAGE 2-13 mg by Methodi ) 1,000 mg 07:47: mouth st tablet 28 daily with breakfast. rivaroxaban 2018-10 Yes 20mg QD Take 20 mg Obrien (XARELTO) 2-13 by mouth Method i 20 mg 07:47: daily. st tablet 28 CARVEDILOL 2018-10 Yes Take by [place] ORAL 2-13 mouth. Methodi 07:47: st 28 gemfibrozil 2018-10 Yes 600mg Q.5D Take 600 [place] (LOPID) 600 2-13 mg by Methodi MG tablet 07:47: mouth 2 st 28 (two) times a day before meals. ascorbic 2018-10 Yes 1000mg Take 1,000 [place] acid 2-13 mg by Methodi (VITAMIN C 07:47: mouth. st ORAL) 28 cholecalcif 2018-10 Yes 1000U QD Take 1,000 Obrien bayron, 2-13 Units by Methodi vitamin D3, 07:47: mouth st (VITAMIN 28 daily. D3) 1,000 unit tablet BETA 2018-10 Yes 15mg Take 15 mg Obrien CAROTENE 2-13 by mouth. Method i ORAL 07:47: st 28 folic acid 2018-10 Yes Take by [place] 0.8 mg 2-13 mouth. Methodi capsule 07:47: st 28 NON 2018-10 2019- No Genfibrozi [place] FORMULARY 2 12-13 l 600 mg Metho di 07:45: 00:[address] 36 :00 Carvedilol Carvedilol 2018-10 Yes Ailyn with food [facility] Memoria 00 [facility] Riluzole 2018-10 Yes 50 mg, PO, Mem oria 0-10 Q12H, X 30 l 19:35: day, 0 [place] 00 Refill(s) Jardiance Jardiance Yes Ailyn [address] 8[facility]15 [facility] - 00:[facility]: Memoria 00 [facility] Lisinopril Lisinopril Yes Ailyn [address] 8-15 [facility] - 00:00: Memoria 00 [facility] baclofen Yes Take 1 Obrien (LIORESAL) 05-07 tablet 3 Metho di 10 MG 00:00: times a st tablet 00 day-- Start 1 tablet at bedtime x1 week, then 1 tablet twice daily x1 week, then 1 tablet three times daily riluzole 2020- No 50mg Q12H Take 1 [place] (RILUTEK) 05-07 02-04 tablet (50 Met hodi 50 mg 00:00: 00:00 mg total) st tablet 00 :00 by mouth every 12 (twelve) hours. Xarelto Yes 20 mg, PO, Twan shandra 4-24 Daily, 0 l 20:11: Refill(s) Rad 00 Metformin 2018-0 Yes 1,000 mg, Mem oria 4-24 PO, Daily, l 20:11: 0 Refill(s) Lisinopril 2018-0 Yes 30 mg, PO, M emoria 4-24 Daily, 0 l 20:11: Refill(s) Gemfibrozil 2018-0 Yes 600 mg, Mem oria 4-24 PO, BID, 0 l 20:11: Refill(s) carvedilol 2018-0 Yes PO, 0 Memori a 4-24 Refill(s) l 20:11: Rad 00 Xarelto Xarelto 2019-0 Yes Ailyn [address] 3-04 [place] with food [facility] - 00:00: Memoria 00 l [facility] ent Clinics Aspir-81 Aspir-81 Yes Ailyn [address] [facility] ent [facility]ics Metformin Metformin Yes Ailyn [address] HCl HCl [place] with meals [facility] Gemfibrozil Gemfibrozil Yes Ailyn TAKE [address] Guo TABLET [facility] - TWICE A Memoria DAY l [facility] ent Clinics Vital Signs Vital Name Observation Time Observation Value Comments Source Systolic (mm Hg) 2020-02-23 16:47:00 Twanvaibhav Leroy Diastolic (mm Hg) 2020-02-23 16:47:00 [facility] yulisa Leroy Heart Rate 2020-02-23 16:47:00 [facility] Respitory Rate 2020-02-23 16:47:00 Jessica Frey Temperature Oral (F) 2020-02-23 16:47:00 96.0 F [facility] Height 2020-02-23 16:47:00 162.56 cm [facility] Weight 2020-02-23 16:47:00 [facility] BMI Calculated 2020-02-23 16:47:00 Jessica al [place] Systolic blood 2019-09-18 07:43:00 137 mm[Hg] Jeanneto n Taoist pressure Diastolic blood 2019-09-18 07:43:00 96 mm[Hg] Sandra on Taoist pressure Heart rate 2019-09-18 07:43:00 83 /min [place] Taoist Body temperature 2019-09-18 07:43:00 36.44 Kate [place] Respiratory rate 2019-09-18 07:43:00 16 /min [place] Body height 2019-09-18 07:43:00 165.1 cm [place] Taoist Body weight 2019-09-18 07:43:00 76.522 kg Obrien Taoist BMI 2019-09-18 07:43:00 28.07 kg/m2 Obrien Taoist Systolic (mm Hg) 2019-07-16 18:29:00 Twan riaedel Rad Diastolic (mm Hg) 2019-07-16 18:29:00 Mem orial [place] Heart Rate 2019-07-16 18:29:00 [facility] [place] Respitory Rate 2019-07-16 18:29:00 Memori al [place] Height 2019-07-16 18:29:00 165.1 cm Memorial Rad Weight 2019-07-16 18:29:00 [facility] [place] BMI Calculated 2019-07-16 18:29:00 Memori al Rad Oxygen saturation in 2019-05-07 10:00:00 98 /min Obrien Taoist Arterial blood by Pulse oximetry Weight 2019-04-16 16:37:00 [facility] Rad BMI Calculated 2019-04-16 16:37:00 Memori al Rad Height 2019-04-16 16:37:00 165.1 cm [facility] [place] Heart Rate 2019-04-16 16:37:00 [facility] [place] Respitory Rate 2019-04-16 16:37:00 Memori al Rad Systolic (mm Hg) 2019-04-16 16:37:00 Twan rial Rad Diastolic (mm Hg) 2019-04-16 16:37:00 Mem orial Rad BMI Calculated 2019-03-04 18:57:00 Memori al Rad Weight 2019-03-04 18:57:00 [facility] [place] Height 2019-03-04 18:57:00 162.56 cm Memorial Rad Heart Rate 2019-03-04 18:57:00 [facility] [place] Respitory Rate 2019-03-04 18:57:00 Memori al [place] Systolic (mm Hg) 2019-03-04 18:57:00 Twan rial [place] Diastolic (mm Hg) 2019-03-04 18:57:00 Mem orial [place] Weight 2019-01-28 20:06:00 [facility] [place] BMI Calculated 2019-01-28 20:06:00 Memori al [place] Height 2019-01-28 20:06:00 165.1 cm Memorial Rad Respitory Rate 2019-01-28 20:06:00 Memori al Rad Heart Rate 2019-01-28 20:06:00 [facility] [place] Systolic (mm Hg) 2019-01-28 20:06:00 Twan rial Rad Diastolic (mm Hg) 2019-01-28 20:06:00 Mem orial Rad Procedures Procedure Date / Time Performing Clinician Source Performed HEPATIC FUNCTION PANEL 2019-09-18 07:30:00 Sourav Velazco IR LUMBAR PUNCTURE 2019-05-07 09:45:32 Sourav Velazco MYELIN BASIC PROTEIN 2019-05-07 09:38:00 Sourav Velazco on Taoist LYME DISEASE REFLEXIVE 2019-05-07 09:38:00 Sourav Velazco PANEL, CSF IGG SYNTHESIS RATE STUDY 2019-05-07 09:38:00 Sourav Velazco GLUCOSE LEVEL, CSF 2019-05-07 09:38:00 Sourav Velazco CSF CELL COUNT WITH 2019-05-07 09:38:00 Sourav Velazco DIFFERENTIAL OLIGOCLONAL BANDING, CSF 2019-05-07 09:38:00 Sourav Velazco POC GLUCOSE 2019-05-07 09:11:00 Sourav Velazco Me thodist IGG SYNTHESIS RATE STUDY 2019-05-07 06:55:00 Sourav Velazco HEMOGLOBIN A1C 2019-05-06 09:52:00 Richa Acosta Met hodist Luis Hill Ali EMG 2019-05-05 15:47:59 Sourav Velazco Me thodist ECG 12-LEAD 2019-05-05 12:27:43 Sourav Velazco Me thodist SPIROMETRY, MIPS/MEPS 2019-05-05 07:33:12 Sourav Velazco HIV AG/AB COMBINATION 2019-05-05 07:08:00 Sourav Velazco CRP HIGH SENSITIVITY 2019-05-05 07:08:00 Sourav Velazco on Taoist VITAMIN B12 LEVEL 2019-05-05 07:08:00 Sourav Velazco VITAMIN D 25 HYDROXY LEVEL 2019-05-05 07:08:00 Sourav Velazco THYROID STIMULATING 2019-05-05 07:08:00 Sourav Velazco HORMONE T4, FREE 2019-05-05 07:08:00 Sourav Velazco Me thodist SERUM ELECTROPHORESIS 2019-05-05 07:08:00 Sourav Velazco SYPHILIS TOTAL ANTIBODY 2019-05-05 07:08:00 Sourav Velazco RHEUMATOID FACTOR 2019-05-05 07:08:00 Sourav Velazco PARATHYROID HORMONE 2019-05-05 07:08:00 Sourav Velazco B. BURGDORFERI ABS TOTAL, 2019-05-05 07:08:00 Sourav Velazco SERUM LIPID PANEL 2019-05-05 07:08:00 Sourav Velazco Ak thodist HTLV I/II AB WITH REFLEX 2019-05-05 07:08:00 Sourav Velazco TO CONFIRMATION HEPATIC FUNCTION PANEL 2019-05-05 07:08:00 Sourav Velazco FOLATE LEVEL 2019-05-05 07:08:00 Sourav Velazco Ak jaydonodi CREATINE KINASE, TOTAL 2019-05-05 07:08:00 Sourav Velazco (CPK) HC COMPLETE BLD COUNT 2019-05-05 07:08:00 Sourav Velazco W/AUTO DIFF BASIC METABOLIC PANEL 2019-05-05 07:08:00 Sourav Velazco MARIE 2019-05-05 07:08:00 Sourav Velazco Ak thodist ACETYLCHOLINE RECEPTOR 2019-05-05 07:08:00 Sourav Velazco BINDING AB ESTIMATED GFR 2019-05-05 07:08:00 Sourav Velazco Ak thodist MARIE TITER 2019-05-05 07:08:00 Sourav Velazco Ak thodist Plan of Care Planned Activity Planned Date Details Comments Source Future Scheduled 2020-05-07 INFLUENZA VACCINE Dennise Gómez Test 00:00:00 [code = INFLUENZA VACCINE] Future Scheduled 2014 COLONOSCOPY SCREENING Iban Gómez Test 00:00:00 [code = COLONOSCOPY SCREENING] Future Scheduled 2014 SHINGLES VACCINES (#1) [place] [facility] Test 00:00:00 [code = SHINGLES VACCINES (#1)] Future Scheduled 1974 DIABETIC FOOT EXAM [place] [facility] Test 00:00:00 [code = DIABETIC FOOT EXAM] Future Scheduled 1974 URINE MICROALBUMIN [place] [facility] Test 00:00:00 [code = URINE MICROALBUMIN] Future Scheduled 1964 DIABETIC RETINAL EYE [place] [facility] Test 00:00:00 EXAM [code = DIABETIC RETINAL EYE EXAM] Encounters Start End Encounter Admission Attending Care Care Encounter Source Date/Time Date/Time Type Type Clinicians Facility Department ID 2020-02-23 2020-02-23 Outpatient SHARDA McraeSCHDAVID [id number] 11:45:00 23:59:59 Delfino 07 Con 2020-02-19 2020-02-19 [facility] [id number] [facility] 09:20:00 09:20:00 [facility] Medicine Outpati ent Clinics 2020-02-18 2020-02-18 [facility] [id number] 08:38:00 08:38:00 [facility] Medicine Outpati ent Clinics 2019-11-17 2019-11-17 [facility] [id number] 15:20:00 15:20:00 [facility] Medicine Outpati ent Clinics 2019-11-17 2019-11-17 Outpatient SHARDA Mcrae [id number] 13:15:00 13:15:00 Delfino 06 [facility] 2019-07-30 2019-07-30 [facility] [id number] 09:45:00 09:45:00 [facility] Medicine Outpati ent Clinics 2019-07-16 2019-07-16 Outpatient SHARDA Mcrae [id number] 13:45:00 23:59:59 Delfino 05 Con 2019-07-16 2019-07-16 Outpatient SHARDA Mcrae [id number] 11:30:00 11:30:00 Delfino 04 Con 2019-05-21 2019-05-21 [facility] [id number] 09:45:00 09:45:00 t [facility] Medicine Outpati ent Clinics 2019-04-16 2019-04-16 Outpatient SHARDA Mcrae ALESSANDROSCHER [id number] 11:30:00 23:59:59 Delfino [facility] 2019-04-02 2019-04-02 [facility] [id number] 11:45:00 11:45:00 Delfino [facility] 2019-03-19 2019-03-19 [facility] [id number] 15:39:00 15:39:00 t [facility] Medicine Outpati ent Clinics 2019-03-04 2019-03-04 [id number] 13:00:00 23:59:59 Delfino [facility] 2019-02-04 2019-02-04 [facility] [id number] 14:15:00 14:15:00 t [facility] Medicine Outpati ent Clinics 2019-01-28 2019-01-28 [facility] [id number] 14:30:00 23:59:59 Delfino 00 [facility] 2019-01-02 2019-01-02 [facility] [id number] 13:41:00 13:41:00 t [facility] Medicine Outpati ent Clinics 2018-12-08 2018-12-08 [facility] [id number] 16:49:00 16:49:00 t [facility] Medicine Outpati ent Clinics 2018-12-04 2018-12-04 [facility] [id number] 13:59:00 13:59:00 t [facility] Medicine Outpati ent Clinics 2018-11-26 2018-11-26 [facility] [id number] 16:33:00 16:33:00 [facility] Clin[facility] 2018-11-04 2018-11-04 Outpatient Fredo Chavarria [id number] 15:30:00 15:30:00 t [facility] s [facility] ent [facility] 2018-10-30 2018-10-30 Outpatient Fredo Yoot [id number] 15:49:00 15:49:00 [facility] 2018-10-30 2018-10-30 Outpatient Fredo Yoot [id number] 15:00:00 15:00:00 [facility] Results Test Description Test Time Test Comments Results Result Comments Source Hepatic function panel 2019-09-18 10:12:29 Test Item Value Reference Range Interpretation Comme nts Albumin (test code = 1751-7) 3.9 g/dL 3.5-5 Total bilirubin (test code = 1974-2) 0.9 mg/dL 0-1.2 Bilirubin direct (test code = 1967-7) <0.2 0-0.3 Alkaline phosphatase (test code = 77 U/L 40-129 6768-6) Protein (test code = 2885-2) 7.9 g/dL 6.3-8.3 Esxxidr8419.6-7.0 g/dL1 eqmx9657.4-7.6 g/dL7 months-4sbpu530 .1-7.3 g/dL1-2 years99 5.6-7.5 g/dL>3 ekunx919 .0-8.0 g/kV29-1066404. 3-8.3 g/dL ALT (test code = 1742-6) 28 U/L 5-50 AST (test code = 1920-8) 25 U/L 10-50 [facility] MethodistMyelin basic [id number] 10:11:02 Test Item Value Reference Range Interpretation Comments Myelin basic 5.03 ng/mL 0-5.5 INTERPRETIVE IN FORMATION: protein (test code Myelin B asic ProteinTest = 2638-5) developed and characteristics determined by [facility]. S ee Compliance Stat ement D: [employer]/C[employer] erformed by MALENA silva, [address] , [facility] [address] [email or web address] , MD Heather James ab. Director Napoleon MethodistOligoclonal banding, [id number] 09:03:55 Test Item Value Reference Range Interpretation Comments Protein, CSF (test code 30 mg/dL 15-45 = 2880-3) Prealbumin, CSF (test 5.3 % 3.5-11.1 code = 60586-1) Albumin, CSF (test code 62.0 % 40.8-66.2 = 19545-5) Alpha 1, CSF (test code 2.6 % 2.3-6.4 = 99450-3) Alpha 2, CSF (test code 7.7 % 6.1-12.6 = 55385-7) Beta, CSF (test code = 15.8 % 11.7-24.1 44543-2) Gamma, CSF (test code = 6.6 % 5.6-12.2 19722-8) CSF extended See Comment A normal CSF interpretation (test protein study. No code = 42891-9) oligoclonal bands are seen. CSF interpretation See Comment Manan Wayne MD, PhD; (test code = 1163) Blanche Huerta MD; Deana Cruz, PhD; David Guerrier MD, Ph D Napoleon MethodistLyme disease reflexive panel, [id number] 17:12:56 Test Item Value Reference Range Interpretation Comments B. burgdorferi Abs 0.02 <=0.99 When the Borrelia JANENE, CSF (test code burgdo rferi Abs, Total by = 47060-8) JANENE result is negative, no further test ing is done.INTERPRETI VE INFORMATION: Balaji rrelia burgdorferi Abs , JANENE, CSF 0.99 JENNIFER or les s: ......... Negat fredy - Antibody to B . burgdorferi not detected. 1.00 - 1.20 JENNIFER ........... Equ ivocal - Repeat testing in 10-14 days may be hel pful. 1.21 JENNIFER or greater: ...... Positive - Prob able presence of a ntibody to B. burgdorferi detected.The de tection of antibodies to B . burgdorferi in cerebrospinal f luid may indicate centra l nervous system infectio n. However, consid eration must be given t o possible contamination b y blood or transfer of ser um antibodies acro ss the blood-brain barrier.Current CDC recommendations for the serologic diagn osis of Lyme disease ar e to screen with a polyvale nt JANENE test and confir m equivocal and positive re sults with immunoblot. Balaji th IgM and IgG immunoblots should be performed on sa mples less than [address] appearance of e rythema migrans. Only IgG immunoblot shou ld be performed on sa mples greater than 4 weeks after the disease ons et. IgM immunoblot in t he chronic stage is not re commended and does not ai d in the diagnosis of neuroborreliosi s or chronic Lyme di sease. Please submit r equests for appropriate imm unoblot testing within 10 days. Test developed and characteristics determined by [facility]. See Compliance Stat ement B: [employer]/CSP erformed by [facility], [address] [facility] [address], [facility] [address] [email or web address], Long Cardenas MD - L ab. Director Napoleon MethodistIgG synthesis rate [id number] 11:45:25 Test Item Value Reference Range Interpretation Comments IgG albumin ratio, CSF (test 0.11 0.00-0.23 code = 1588) IgG index, CSF (test code = 0.40 0.01-0.63 83253-1) IgG synthetic rate (test -1.46 -9.90 - 3.30 mg-day code = 63968-7) Q-albumin ratio, CSF (test 5.11 2.00-7.50 code = 1756-6) IgG, CSF (test code = 2.05 mg/dL 1-3 2464-6) Albumin, CSF (test code = 19.43 mg/dL -30 20863-4) IgG (test code = 2465-3) 1006 mg/dL 700-1600 Albumin, S (test code = 3800.0 mg/dL 0183-0516 31756-6) Obrien MethodistAcetylcholine receptor binding [id number] 18:30:05 Test Item Value Reference Interpretation Comments Range Acetylcholine 0.0 nmol/L 0-0.4 INTERPRETIVE I NFORMATION: receptor binding Ab Acetylch oline Binding Ab (test code = 482) Negative . ...... 0.0 - 0.4 nmol/L Pos itive ....... 0.5 nmo l/L or greaterApproxim ately 85-90 percent o f patients with myasthenia gravis (MG) express an tibodies to the acetylch oline receptor (AChR) , which can be divided into binding, blocki ng, and modulating anti bodies. Binding antibod y can activate comple ment and lead to loss of AChR. Blocking antibo dy may impair binding of acetylcholine t o the receptor, leadi ng to poor muscle contract ion. Modulating anti body causes receptor endocytosis res ulting in loss of AChR ex pression, which correlate s most closely with cl inical severity of dis ease. Approximately 1 0-15 percent of carlos viduals with confirmed myasthenia gravis have no measurable binding, blocki ng, or modulating antibodies.Test developed and characteris tics determined by [facility]. S ee Compliance Stat ement B: [employer]/CSP erformed by MALENA silva, [address] [place] [address] [email or web address] , MD Heather James L ab. Director JEN (test code = TRIG results JEN) called to and read back by LUIS PICKARD/ISSA (name/locati on)at 05/05/2019 10:12 (date/time) by PR1. Micah EricA [id number] 14:38:37 Test Item Value Reference Range Interpretation Comments MARIE titer (test code = 1:80 Not-Detected A 06423-8) MARIE pattern (test code = Spindle Not-Detected A 79688-2) JEN (test code = JEN) TRIG results called to and read back by LUIS PICKARD/ISSA(name/l ocation)at 05/05/2019 10:12 (date/time) by PR1. Lab Interpretation (test Abnormal code = 77871-4) Micah [id number] 14:34:11 Test Item Value Reference Range Interpretation Comments MARIE screen (test code = Positive Negative A 550) JEN (test code = JEN) TRIG results called to and read back by LUSI PICKARD/ISSA(name/l ocation)at 05/05/2019 10:12 (date/time) by PR1. Lab Interpretation (test Abnormal code = 73339-2) Micah GómezGlucose level, [id number] 12:02:47 Test Item Value Reference Range Interpretation Comments Glucose, CSF (test code = 2342-4) 109 mg/dL 40-70 H Lab Interpretation (test code = Abnormal 00260-6) Micah GómezCSF cell count with djvdocjgvjpa2030-80-78 11:50:58 Test Item Value Reference Range Interpretation Comments Color, CSF (test code = 65509-4) Colorless Appearance, CSF (test code = Clear 65850-1) RBC, CSF (test code = 44257-4) 0 0- 1 /CMM WBC, CSF (test code = 54028-0) 3 0- 5 /CMM CSF mononuclear cell (test code = 3/CMM 43152-8) Micah GómezIR Lumbar Puncture by Cqklpxwog7260-24-30 10:12:17Hm Interface, Radiology Results - 05/07/2019 10:15 AM CDTEXAMINATION: IR LUMBAR PUNCTURENUMBER OF VIEWS: 0CLINICAL HISTORY: G12.21 Amyotrophic lateral sclerosis, 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 Approximately 15 cc of clear cerebral spinal fluid was obtained and sent to the lab.No radiographs were taken. In fact the save screen image was deleted by mistake.The total fluoroscopy timewas 0.10 minutes.IMPRESSION:Lumbar puncture.[facility]-[id number] [facility] glucose 2019-05-07 09:12:43 Test Item Value Reference Range Interpretation Comments POC glucose (test code = 180 mg/dL 65-99 H No Action 50706-3) NeededMeter ID: [id number] tor: February Lab Interpretation (test Abnormal code = 79359-0) Micah GómezB. burgdorferi Abs total, [id number] 00:00:46 Test Item Value Reference Range Interpretation Comments B. burgdorferi 0.38 0.00-1.20 INTERPRETIVE antibodies (test INFORMATION : code = 5060-9) Borrelia Gladys dorferi Abs,Total by URI RAINE 0.99 JENNIFER or Les s: ...... Negative : Antibody to B. burgdorferi not detected. 1.00 - 1.20 JENNIFER....... .. Equivocal: Repe at testing in 10-14 days may be helpful. 1.21 JENNIFER or Greater: ... Positive: Proba ble presence of antibody to B. burgdorferi detected.Perfor med by [facility] [place], [address] , [facility] [place] [address] [email or web address] , Long Cardenas MD - Lab. Director JEN (test code = TRIG results JEN) called to and read back by LUIS PICKARD/ISSA(na me/location)at 05/05/2019 10:12 (date/time) by BRIANNE GómezHTLV I/II Ab with reflex to inzzibnaqphv0712-78-95 21:02:50 Test Item Value Reference Range Interpretation Comments HTLV I/II Ab Negative Negative Based on the (test code = non-reactive 57873-7) anti-HTLV JANENE screen, the HTL V Western Blot is not indicated and therefore not performed.INTER PRETIV E INFORMATION: HTLV I/II Antibodies w/Reflex t o ConfirmThis ass ay should not be u sed for blood donor screening, asso ciated re-entry protoc ols, or for screenin g Human Cell, Tis sues and Cellular an d Tissue-Based Pr oducts (HCT/P).Perform ed by [facility], [address], [facility],[place] [id number] [email or web address] , Long Cardenas MD - Lab. Director JEN (test code TRIG results = JEN) called to and read back by LUIS PICKARD/ISSA(name/ location)at 05/05/2019 10:12 (date/time) by BRIANNE [employer] rujgevptmziqwkb6239-07-29 16:20:51 Test Item Value Reference Range Interpretation Comments Protein (test code = 7.6 g/dL 6.3-8.3 Lawn 2885-2) 4.6-7.0 g/dL 1 week 4.4-7.6 g/dL7 months-1year 5.1-7.3 g/dL 1-2 years 5.6-7.5 g/dL>3 years 6.0-8.0 g/dL18- 150 6.3-8.3 g/dL SPE albumin (test code = 4.92 g/dL 4-5.3 2862-1) SPE alpha 1 (test code = 0.15 g/dL 0.1-0.25 2865-4) SPE alpha 2 (test code = 0.77 g/dL 0.58-0.84 2868-8) SPE beta (test code = 0.95 g/dL 0.5-1.1 2871-2) SPE gamma (test code = 0.81 g/dL 0.6-1.3 2874-6) SPE extended See Comment A normal serum interpretation (test protein study. code = 95686-1) SPE interpretation (test See Comment Manan Wayne MD, PhD; code = 2218) Emir Harrison; Deana Cruz, PhD; Er michael Guerrier MD, Ph D Napoleon MethodistHemoglobin [id number] 10:33:33 Test Item Value Reference Range Interpretation Comments Hemoglobin A1C (test 9.6 % 4-5.6 H HbA1c c utoffs for code = 27874-9) diagnosing diabetes:4.0% - 5.6% = normal5.7% - 6.4% = increased risk for diabetes (prediabetes) >=6.5% = diabet es Goals for glyce derek control (ADA 20 16)< 7.0% Target fo r non tre lts with diabetes. More or less stringe nt targets may be appropriate for individual rajiv ents. <7.5% Target for Children and adolescents wit h type 1 diabetes. Lab Interpretation (test Abnormal code = 14065-3) Micah GómezECG 12 [id number] 20:31:03 Test Item Value Reference Range Interpretation Comments Ventricular rate (test 102 code = 253) Atrial rate (test code 100 = 255) QRSD interval (test 88 code = 260) QT interval (test code 286 = 264) QTC interval (test 372 code = 265) QRS axis 1 (test code 51 = 268) T wave axis (test code 51 = 270) EKG impression (test Atrial fibrillation code = 273) with rapid ventricular response-Abnormal ECG-No previous ECGs available-Electronicall y Signed By Tani Aldana MD ([id number]) on 05/05/2019 8:30:59 PM Micah MethodistSyphilis total [id number] 16:24:47 Test Item Value Reference Range Interpretation Comments Syphilis total Non-reactive Non-reactive No serologica l antibody (test evidence of s yphilis code = 6194) infection. JEN (test code = TRIG results JEN) called to and read back by LUIS PICKARD/ISSA(nam e/location)at 05/05/2019 10:12 (date/time) by PR1. Micah MethodistVitamin D 25 hydroxy [id number] 15:14:21 Test Item Value Reference Range Interpretation Comments Vitamin D, 25-hydroxy 20.3 ng/mL 30-150 L This a ssay reports (test code = 1988-) the sum of 25-hydroxy kellen min D3 and 25-hydro xy vitamin D2. Reference range:0-17 years:Deficienc y: less than 20ng/mLOptimum level: greater than or equal t o 20 ng/mL.18 yea rs and older:Deficienc y: less than 20ng/mLInsuffic ien cy: 20-29 ng/mLOptimum Level: 30-80 ng/mLThe assay reportable rang e is 3.4 155.9 ng/mL. Levels higher than 150 ng/mL may be associated with toxicity.If toxicity is clinically suspected and t he reported result is >155.9 ng/mL,contact l ab for alternative methods to obta in a definitive level.If separa te quantitation of 25-hydroxy kellen min D3 and 25-hydro xy vitamin D2 is needed, please contact lab for alternative methods. JEN (test code = JEN) TRIG results called to and read back by LUIS PICKARD/ISSA(na me/location)at 05/05/2019 10:12 (date/time) by PR1. Lab Interpretation Abnormal (test code = 27592-7) Micah MethodistRheumatoid shysrm3602-09-70 12:39:07 Test Item Value Reference Range Interpretation Comments Rheumatoid factor (test <10 0- 13 IU/mL code = 17602-6) JEN (test code = JEN) TRIG results called to and read back by LUIS PICKARD/ISSA(name/loc ation)at 05/05/2019 10:12 (date/time) by PR1. Micah MethodistCRP high aanfwzzflbg0139-65-93 12:27:13 Test Item Value Reference Range Interpretation Comments CRP, high 11.65 mg/L Please note thi s test sensitivity (test is differe nt from the code = 68316-3) C-Reactive P rotein (CRP) assay. CR P is a nonspecific mar ker of inflammation an d its levels rise in the presence of con ditions such as infecti on and inflammatory di sorders. Persistent low levels of CRP can be m easured with a high-sen sitivity assay (hsCRP) a nd are associated with increased risks for atherosclerotic diseases.High-S ensitivi ty CRP (hsCRP) results are used to ass ign risk for stroke, acu te myocardial infa rction and peripheral vascular disease as foll ows:Low risk: < 1.00 mg/LAverage ris k: 1.00 - 3.00 mg/LHigh risk: > 3.00 - 10.00 mg/LIndetermina te: > 10.00 mg/L * *M ay be indicative of a nother source of infla mmation or infection Micah GómezHIV Ag/Ab [id number] 10:34:49 Test Item Value Reference Range Interpretation Comments HIV Ag/Ab combination (test code Non-reactive Non-reactive = 5299) Micah GómezVitamin B12 [id number] 10:05:42 Test Item Value Reference Range Interpretation Comments Vitamin B12 (test 779 pg/mL 211-946 Significan t overlap code = 2132-9) exists betwee n normal and deficiency states.However, most patients with deficiencies wi ll have Serum B12 <2 00 pg/mL. Micah MethodistFolate [id number] 10:05:42 Test Item Value Reference Range Interpretation Comments Folate (test code = 2284-8) 18.2 ng/mL 4.8-24.2 Micah De La TorreistLipid [id number] 10:04:40 Test Item Value Reference Interpretation Comments Range Cholesterol (test 280 mg/dL <200 H code = 2093-3) Triglycerides (test 1061 mg/dL <150 A code = 2571-8) HDL cholesterol 26 mg/dL >40 L (test code = 2085-9) LDL cholesterol 86 mg/dL <100 Result obtai david by direct (test code = LDL measurement 2088-10) Lipid panel SeeBelow Total Cholester ol (mg/dL) interpretation <200 (test code = Desirable 200-239 20168-9) Borderline -high >=240 Hi gh Triglyceri charity (mg/dL) <150 No rmal 150-199 Borderline-high 200-499 High >=500 Very high HDL Choles terol (mg/dL) <40 Low (male) < 40 Low (female) L DL Cholesterol (mg /dL) <100 Optimal 1 00-129 Near or above o ptimal 130-159 Borderline-high 160-189 High >=190 Very high Risk Cat ergories that modify LDL goals.Risk Catergories LDL goal (mg/dL )CHD and CHD risk equiva lent <100 (10-year risk >20%)Multiple ( 2+) risk factors < 130 (10-year risk = <20%)0-1 risk factors <160 (<10-ye ar risk) Defining levels of lipids in metabolic syndromeTriglyc erides > =150 mg/dLHDL Choles terol Men <40 mg/dL Women <40 mg/dL Non-HDL cholest bayron is a second target f or therapy in personswith high triglycerides ( >=200 mg/dL) Lab Interpretation Abnormal (test code = 49199-9) Micah De La TorreistT4, [id number] 10:04:40 Test Item Value Reference Range Interpretation Comments T4, free (test code = 3024-7) 1.3 ng/dL 0.9-1.7 Obrien MethodistThyroid stimulating [id number] 10:04:40 Test Item Value Reference Range Interpretation Comments TSH (test code = 3016-3) 2.39 0.27- 4.20 uIU/mL Micah GómezParathyroid buxvnqg4701-98-03 10:00:40 Test Item Value Reference Range Interpretation Comments PTH (test code = 2731-8) 37 pg/mL 15-65 Obrien MethodistBasic metabolic [id number] 09:52:26 Test Item Value Reference Range Interpretation Comments Sodium (test code = 2951-2) 137 135- 148 mEq/L Potassium (test code = 2823-3) 4.1 3.5- 5.0 mEq/L Chloride (test code = 2075-0) 99 98- 112 mEq/L CO2 (test code = 2027-9) 23 24- 31 mEq/L L Anion gap (test code = 89652-9) 15@ANIO 7- 15 mEq/L BUN (test code = 3094-0) 20 mg/dL 6-20 Creatinine (test code = 2160-0) 0.88 mg/dL 0.7-1.2 Glucose (test code = 2345-7) 256 mg/dL 65-99 H Calcium (test code = 52866-5) 9.9 mg/dL 8.3-10.2 Lab Interpretation (test code = Abnormal 61794-2) Obrien MethodistCreatine kinase, total (CPK)2019-05-05 09:52:25 Test Item Value Reference Range Interpretation Comments Creatine kinase (test code = 2157-6) 195 U/L 39-308 Micah MethodistEstimated [id number] 09:52:25 Test Item Value Reference Range Interpretation Comments Estimated GFR (test >=90 mL/min/1.73 m2 [facility] Units code = 5488) InterpretationG 1 >=90 Normal or highG2 60-89 Mildly zatcxtmhiY3g 45-59 Mildly to mode rately rezwetfygC3f 30-44 Moderately to severely decreasedG4 15-29 Severely decre asedG5 <15 Kidn ey failureThe eGFR was calculated lynda robertson the Chronic Kidney Disease Epidemiology Co llaboration (CKD-EPI) equat ion. Interpretation is based on recommendations of the National Kidney Foundation-Kidn ey Disease Outcomes Qualit y Initiative (NKF-KDOQI) pub lished in 2014. Micah MethodistCBC with platelet and qwngslnaefpy6461-52-90 09:21:03 Test Item Value Reference Range Interpretation Comments WBC (test code = 43301-0) 6.81 4.50- 11.00 k/uL RBC (test code = 62303-6) 4.77 m/uL 4.4-6 HGB (test code = 718-7) 14.7 g/dL 14-18 HCT (test code = 4544-3) 42.6 % 41-51 MCV (test code = 787-2) 89.3 fL 82-100 MCH (test code = 785-6) 30.8 pg 27-34 MCHC (test code = 786-4) 34.5 g/dL 31-37 RDW - SD (test code = 40.3 fL 37-55 03647-2) MPV (test code = 36584-6) 12.0 fL 8.8-13.2 Platelet count (test code 171 150- 400 k/uL = 67954-0) Nucleated RBC (test code 0.00 /100 WBC = 66120-6) Neutrophils (test code = 64.8 % 39-69 25486-9) Lymphocytes (test code = 20.0 % 25-45 L 83571-6) Monocytes (test code = 9.3 % 0-10 78897-5) Eosinophils (test code = 5.1 % 0-5 H 67106-2) Basophils (test code = 0.4 % 0-1 69811-1) Immature granulocytes 0.4 % 0-1 "Immat ure (test code = 57755-0) granul ocytes" (promyelocytes, myelocytes, metamyelocytes) Lab Interpretation (test Abnormal code = 69489-2) Obrien MethodistSpirometry, [facility]/[id number] 07:33:12 Test Item Value Reference Range Interpretation Comments FEV1 Pre (test code = 5348) 2.22 L 2.61-3.98 FEV1/FVC % Pre (test code = 5361) 75.87 % 69.12-87.32 FVC Pre (test code = 5354) 2.93 L 3.43-5.04 PEF Pre (test code = 5367) 4.62 L/s 6.29-11.02 FEF 25-75% Pre (test code = 5547) 1.88 L/s 1.58-4.64 FEV1 Predicted (test code = 5302) 3.29 FEV1 LLN (test code = 5347) 2.61 FEV1 % Pre of Predicted (test code = 67.4 % 5308) FVC Predicted (test code = 5307) 4.23 FVC LLN (test code = 5353) 3.43 FVC % Pre of Predicted (test code = 69.1 % 5355) FEV1/FVC % Predicted (test code = 78 5359) FEV1/FVC % LLN (test code = 5360) 69 FEV1/FVC % Pre of Predicted (test 97 % code = 5362) FEF 25-75% Predicted (test code = 3.11 5546) FEF 25-75% LLN (test code = 5545) 1.58 FEF 25-75% % Pre of Predicted (test 60.4 % code = 5548) PEF Predicted (test code = 5310) 8.65 PEF LLN (test code = 5366) 6.29 PEF % Pre of Predicted (test code = 53.4 % 5368) Micah Gómez
--- OUTSIDE RECORDS SUMMARY | 2020-04-17 02:26 | XMS REPORT ---
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
--- OUTSIDE RECORDS SUMMARY | 2020-04-17 02:26 | XMS REPORT ---
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 Assessment Essential hypertension I10 Activ e Problem Acute gout of right foot, M10.9 Ac tive unspecified cause Problem History of alcoholism F10.21 Active Problem ALS (amyotrophic lateral sclerosis) G12.21 Active Problem Diabetes 1.5, 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 Problem Pure hypercholesterolemia E78.00 Ac tive Problem Essential hypertension I10 Activ e Problem Neuropathy G62.9 Active Medications Medication Code Code Instructions Start End Status Dosage System Date Date Carvedilol [facility] 00270341223 12.5 MG Orally Jul 30, Active wi th food Twice a day 2018 Gemfibrozil [facility] 62209138140 600 MG Active TAKE 1 TABLET TWICE A DAY Metformin HCl [facility] 84455294023 1000 MG Orally Active 1 tablet Twice a day with meals Jardiance [facility] 90468979176 10 MG Orally May 21, Active 1 tab let Once a day 2018 Janumet XR [facility] 30572229613 50-1000 MG Nov 17, Active 2 tabl ets Orally Once a 2019 with day before evening dinner meal Aspir-81 [facility] 04597796623 81 MG Orally Active 1 tabl et Once a day Lisinopril ND 59246207747 5 MG Orally Once May 21, Active 1 tablet a day 2018 Xarelto [facility] 64167003860 20 MG Orally Active 1 table t Once a day with food Results No Known Results Summary Purpose [employer]ClinicalWorks Submission
[2020-04-17] MEDS ORDERED: LIDOCAINE 1% MPF 5 ML VIAL ONE (02:34)
--- NOTE | 2020-04-17 05:35 | ER ---
Nurse's Notes [facility] Name: Beto Luevano Age: 54 yrs Sex: Male : 1965 Arrival Date: 04/17/2020 Time: 02:33 Bed 4 Private MD: Diagnosis: Laceration without foreign body of other part of head;Contusion of other part of head;Concussion without loss of consciousness Presentation: 04/17 02:37 Chief complaint: EMS states: Called by family, pt had a fall when going to the restroom, pt reports he was walking to the restroom and fell on his face, denies LOC. Pt reported to EMS. 02:37 Method Of Arrival: EMS: [facility] ea 02:37 Coronavirus screen: Proceed with normal triage. Ebola Screen: No symptoms or risks ea identified at this time. Mechanism of Injury: resulted from a fall, from a standing position. Initial Sepsis Screen: Does the patient meet any 2 criteria? No. Patient's initial sepsis screen is negative. Does the patient have a suspected source of infection? No. Patient's initial sepsis screen is negative. Risk Assessment: Do you want to hurt yourself or someone else? Patient reports no desire to harm self or others. 02:37 Acuity: JUAN 3 ea 02:37 Care prior to arrival: dressing to top of head. ea 02:55 Trauma event details: Injury occurred in the [facility], Injury occurred: at home. Injury occurred: April 17, 2020. Trauma Activation: Not Applicable Physician: ED Physician; Name: ; Notified At: ; Arrived At: Physician: General Surgeon; Name: ; Notified At: ; Arrived At: Physician: Radiology; Name: ; Notified At: ; Arrived At: Physician: Respiratory; Name: ; Notified At: ; Arrived At: Physician: Lab; Name: ; Notified At: ; Arrived At: Historical: - Allergies: 02:57 Ibuprofen; ea - Home Meds: 02:57 Metformin Oral [Active]; lisinopril Oral [Active]; gemfibrozil Oral [Active]; ea - PMHx: 02:57 Hypertension; ea - PSHx: 02:57 None; ea - Immunization history:: Adult Immunizations up to date. - Immunization history: Last tetanus immunization: unknown. - Social history:: Smoking status: Patient denies any tobacco usage or history of. Screenin:51 Abuse screen: Denies threats or abuse. Nutritional screening: No deficits noted. ea Tuberculosis screening: No symptoms or risk factors identified. Fall Risk None identified. Primary Survey: 02:37 NO uncontrolled hemorrhage observed. A: The patient is alert. Airway: patent. ea Breathing/Chest: Respiratory pattern: regular, Respiratory effort: spontaneous, unlabored. Circulation: Skin color: pink, Skin temperature: warm. Disability Alert. Exposure/Environment: Obvious injury(ies) are noted at this time: laceration to left side of head. 03:47 Reassessment Airway Airway Patent Breathing/Chest Respiratory pattern Regular ea Respiratory effort Spontaneous Unlabored. Secondary Survey: 02:58 Injury Description: Laceration sustained to left side of the back of head is clean, 2.6 ea to 7.5 cm long. Assessment: 02:37 General: Appears uncomfortable, Behavior is appropriate for age. Pain: Complains of ea pain in left side of the back of head. 02:37 Neuro: Level of Consciousness is awake, alert, obeys commands, Oriented to person, ea place, time. Cardiovascular: Patient's skin is warm and dry. Respiratory: Airway is patent Respiratory effort is even, unlabored, Respiratory pattern is regular, symmetrical. Derm: Skin is pink, warm \T\ dry. 03:05 Reassessment: Atiya [id number]. ea 04:45 Reassessment: Patient appears in no apparent distress at this time. Patient and/or mg2 family updated on plan of care and expected duration. Pain level reassessed. Patient is alert, oriented x 3, equal unlabored respirations, skin warm/dry/pink. 05:24 Reassessment: Patient and/or family updated on plan of care and expected duration. Pain ea level reassessed. Patient is alert, oriented x 3, equal unlabored respirations, skin warm/dry/pink. 05:26 Reassessment: Attempted to call , left call back number. ea 06:55 Reassessment: called Enrique, his [phone] to call one of his son to come and mg2 pick him up. he said he will call back. 07:00 Reassessment: RECD REPORT FROM [facility]. 54YO HM P/W HEAD LAC S/P FALL. PT TBDC, FAMILY bp PENDING FOR TRANSPORT. 08:01 Reassessment: PT D/C HOME VIA W/C WITH FAMILY. bp Vital Signs: 02:37 BP 113 / 77; Pulse 86; Resp 18; Temp 97.6; Pulse Ox 98% ; Weight 73.48 kg; Height 5 ft. ea 6 in. (167.64 cm); 03:48 BP 110 / 68; Pulse 78; Resp 18; Pulse Ox 98% ; ea 04:45 BP 126 / 93; Pulse 80; Resp 18; Pulse Ox 100% on R/A; mg2 05:24 BP 108 / 74; Pulse 80; Resp 18; Pulse Ox 98% ; ea 06:25 BP 110 / 65; Pulse 81; Resp 18; Temp 98; Pulse Ox 100% on R/A; mg2 02:37 Body Mass Index 26.15 (73.48 kg, 167.64 cm) ea [place] Coma Score: 02:37 Eye Response: spontaneous(4). Verbal Response: oriented(5). Motor Response: obeys ea commands(6). Total: 15. 02:37 Eye Response: spontaneous(4). Verbal Response: oriented(5). Motor Response: obeys ea commands(6). Total: 15. 02:54 Eye Response: spontaneous(4). Verbal Response: oriented(5). Motor Response: obeys tw4 commands(6). Total: 15. 02:54 Eye Response: spontaneous(4). Verbal Response: oriented(5). Motor Response: obeys tw4 commands(6). Total: 15. 03:50 Eye Response: spontaneous(4). Verbal Response: oriented(5). Motor Response: obeys ea commands(6). Total: 15. 04:45 Eye Response: spontaneous(4). Verbal Response: oriented(5). Motor Response: obeys mg2 commands(6). Total: 15. 06:25 Eye Response: spontaneous(4). Verbal Response: oriented(5). Motor Response: obeys mg2 commands(6). Total: 15. Trauma Score (Adult): 02:37 Eye Response: spontaneous(1); Verbal Response: oriented(1); Motor Response: obeys ea commands(2); Systolic BP: > 89 mm Hg(4); Respiratory Rate: 10 to 29 per min(4); Radha Score: 15; Trauma Score: 12 04:45 Eye Response: spontaneous(1); Verbal Response: oriented(1); Motor Response: obeys mg2 commands(2); Systolic BP: > 89 mm Hg(4); Respiratory Rate: 10 to 29 per min(4); [place] Score: 15; Trauma Score: 12 06:25 Eye Response: spontaneous(1); Verbal Response: oriented(1); Motor Response: obeys mg2 commands(2); Systolic BP: > 89 mm Hg(4); Respiratory Rate: 10 to 29 per min(4); Radha Score: 15; Trauma Score: 12 ED Course: 02:33 Patient arrived in ED. ds1 02:37 Cora Dela Cruz, RN is Primary Nurse. ea 02:37 Patient maintains SpO2 saturation greater than 95% on room air. Thermoregulation: warm ea blanket given to patient. 02:38 Assist provider with laceration repair on left side of the back of head that was ea between 2.6 to 7.5 cm using zachary. Set up tray. Performed by Augusto Marvin MD Patient tolerated well. 02:40 Augusto Marvin MD is Attending Physician. tw4 02:51 Arm band placed on right wrist. Patient placed in an exam room, on a stretcher, on ea pulse oximetry. 02:52 Patient has correct armband on for positive identification. Bed in low position. Call ea light in reach. Side rails up X2. 02:53 Triage completed. ea 03:21 CT Head Brain wo Cont In Process Unspecified. EDMS 06:28 Patient did not have IV access during this emergency room visit. Dressings: compressed mg2 dressing done on his head. 07:16 Primary Nurse role handed off by Cora Dela Cruz, GARETH bp 07:16 Jimy Archer, GARETH is Primary Nurse. bp Administered Medications: 06:00 Drug: Tetanus-Diphtheria Toxoid Adult 0.5 ml {Spot Sprayer: Movie[employer]. Exp: mg2 11/20/2021. Lot #: [id number]. } Route: IM; Site: right deltoid; 06:27 Follow up: Response: No adverse reaction mg2 06:19 Drug: Afrin Drops (0.05 %) 1 sprays Route: Intranasal; Site: right nare; ea 06:27 Follow up: Response: No adverse reaction mg2 Intake: 06:29 PO: 0ml; Total: 0ml. mg2 Outcome: 05:34 Discharge ordered by MD. [email or web address] 06:28 Discharged to home mg2 06:28 Condition: stable 06:28 Discharge instructions given to patient, Instructed on discharge instructions, follow up and referral plans. Demonstrated understanding of instructions, follow-up care, wound care. 06:29 Patient's length of stay was not longer than 2 hours. mg2 08:01 Patient left the ED. bp Signatures: Dispatcher [employer] EDAR Abarca, [place] ds1 Cora Dela Cruz, RN RN Jimy Amezquita RN RN Augusto Barraza MD MD tw4 Edil Moyer RN RN mg2
--- NOTE | 2020-04-17 05:35 | EDPHYS ---
Physician Documentation [facility] Name: Beto Luevano Age: 54 yrs Sex: Male : 1965 Arrival Date: 04/17/2020 Time: 02:33 Bed 4 Private MD: ED Physician Augusto Marvin HPI: 04/17 02:54 This 54 yrs old Male presents to ER via EMS with complaints of Head tw4 Injury-Adult. 02:54 The patient or guardian reports injury, pain. The complaints affect the left frontal tw4 area. Context of injury: The problem was sustained at home. Onset: The symptoms/episode began/occurred today. Associated signs and symptoms: Loss of consciousness: This patient did not experience any loss of consciousness. Pertinent positives: injury. Severity of symptoms: At their worst the symptoms were moderate, in the emergency department the symptoms are unchanged. The patient has not experienced similar symptoms in the past. Historical: - Allergies: 02:57 Ibuprofen; ea - Home Meds: 02:57 Metformin Oral [Active]; lisinopril Oral [Active]; gemfibrozil Oral [Active]; ea - PMHx: 02:57 Hypertension; ea - PSHx: 02:57 None; ea - Immunization history:: Adult Immunizations up to date. - Immunization history: Last tetanus immunization: unknown. - Social history:: Smoking status: Patient denies any tobacco usage or history of. ROS: 02:54 Skin: Negative for injury, rash, and discoloration. tw4 02:54 Constitutional: Negative for fever, chills, and weight loss, Eyes: Negative for injury, pain, redness, and discharge, Cardiovascular: Negative for chest pain, palpitations, and edema, Respiratory: Negative for shortness of breath, cough, wheezing, and pleuritic chest pain, Abdomen/GI: Negative for abdominal pain, nausea, vomiting, diarrhea, and constipation, Back: Negative for injury and pain, MS/Extremity: Negative for injury and deformity, Neuro: Negative for headache, weakness, numbness, tingling, and seizure. 02:54 Skin: Positive for laceration(s). Exam: 02:54 Constitutional: This is a well developed, well nourished patient who is awake, alert, tw4 and in no acute distress. 02:54 Chest/axilla: Normal chest wall appearance and motion. Nontender with no deformity. No lesions are appreciated. Cardiovascular: Regular rate and rhythm with a normal S1 and S2. No gallops, murmurs, or rubs. Normal PMI, no JVD. No pulse deficits. Respiratory: Lungs have equal breath sounds bilaterally, clear to auscultation and percussion. No rales, rhonchi or wheezes noted. No increased work of breathing, no retractions or nasal flaring. Abdomen/GI: Soft, non-tender, with normal bowel sounds. No distension or tympany. No guarding or rebound. No evidence of tenderness throughout. Back: No spinal tenderness. No costovertebral tenderness. Full range of motion. MS/ Extremity: Pulses equal, no cyanosis. Neurovascular intact. Full, normal range of motion. Neuro: Awake and alert, GCS 15, oriented to person, place, time, and situation. Cranial nerves II-XII grossly intact. Motor strength 5/5 in all extremities. Sensory grossly intact. Cerebellar exam normal. Normal gait. 02:54 Head/face: Noted is a laceration(s), 12 cm(s), of the left side of the back of head. 02:54 Head/face: Noted is contusion, that is deep, hematoma, that is mild. Vital Signs: 02:37 BP 113 / 77; Pulse 86; Resp 18; Temp 97.6; Pulse Ox 98% ; Weight 73.48 kg; Height 5 ft. ea 6 in. (167.64 cm); 03:48 BP 110 / 68; Pulse 78; Resp 18; Pulse Ox 98% ; ea 04:45 BP 126 / 93; Pulse 80; Resp 18; Pulse Ox 100% on R/A; mg2 05:24 BP 108 / 74; Pulse 80; Resp 18; Pulse Ox 98% ; ea 06:25 BP 110 / 65; Pulse 81; Resp 18; Temp 98; Pulse Ox 100% on R/A; mg2 02:37 Body Mass Index 26.15 (73.48 kg, 167.64 cm) ea [place] Coma Score: 02:37 Eye Response: spontaneous(4). Verbal Response: oriented(5). Motor Response: obeys ea commands(6). Total: 15. 02:37 Eye Response: spontaneous(4). Verbal Response: oriented(5). Motor Response: obeys ea commands(6). Total: 15. 02:54 Eye Response: spontaneous(4). Verbal Response: oriented(5). Motor Response: obeys tw4 commands(6). Total: 15. 02:54 Eye Response: spontaneous(4). Verbal Response: oriented(5). Motor Response: obeys tw4 commands(6). Total: 15. 03:50 Eye Response: spontaneous(4). Verbal Response: oriented(5). Motor Response: obeys ea commands(6). Total: 15. 04:45 Eye Response: spontaneous(4). Verbal Response: oriented(5). Motor Response: obeys mg2 commands(6). Total: 15. 06:25 Eye Response: spontaneous(4). Verbal Response: oriented(5). Motor Response: obeys mg2 commands(6). Total: 15. Trauma Score (Adult): 02:37 Eye Response: spontaneous(1); Verbal Response: oriented(1); Motor Response: obeys ea commands(2); Systolic BP: > 89 mm Hg(4); Respiratory Rate: 10 to 29 per min(4); Radha Score: 15; Trauma Score: 12 04:45 Eye Response: spontaneous(1); Verbal Response: oriented(1); Motor Response: obeys mg2 commands(2); Systolic BP: > 89 mm Hg(4); Respiratory Rate: 10 to 29 per min(4); [place] Score: 15; Trauma Score: 12 06:25 Eye Response: spontaneous(1); Verbal Response: oriented(1); Motor Response: obeys mg2 commands(2); Systolic BP: > 89 mm Hg(4); Respiratory Rate: 10 to 29 per min(4); Radha Score: 15; Trauma Score: 12 Laceration: 02:54 Wound Repair of subcutaneous laceration. Distal neuro/vascular/tendon intact. Skin tw4 closed with 7 1-0 [place] using simple sutures and sterile technique. Dressed with Bacitracin. Patient tolerated well. 02:54 Wound Repair of 12cm ( 4.7in ) subcutaneous laceration to left side of the back of tw4 head. Distal neuro/vascular/tendon intact. Anesthesia: Local anesthetic administered with 5 mls of 1% lidocaine. Wound prep: Moderate cleansing by me. Skin closed with 7 1-0 [place] using simple sutures and sterile technique. MDM: 02:40 Patient medically screened. tw4 02:54 Differential diagnosis: Contusion of Hematoma on Laceration of. Data reviewed: vital tw4 signs, nurses notes. 04/17 02:39 Order name: CT Head Brain wo Cont tt3 Administered Medications: 06:00 Drug: Tetanus-Diphtheria Toxoid Adult 0.5 ml {Nurse'S Aides Teacher: INNOBI. Exp: mg2 11/20/2021. Lot #: [id number]. } Route: IM; Site: right deltoid; 06:27 Follow up: Response: No adverse reaction mg2 06:19 Drug: Afrin Drops (0.05 %) 1 sprays Route: Intranasal; Site: right nare; ea 06:27 Follow up: Response: No adverse reaction mg2 Disposition: 04/17/20 05:34 Discharged to Home. Impression: Laceration without foreign body of other part of head, Contusion of other part of head, Concussion without loss of consciousness. - Condition is Stable. - Discharge Instructions: Contusion, Facial Laceration, Stitches, Praneeth, or Adhesive Wound Closure, Laceration Care, Pediatric, Head Injury, Adult, [id number]. - Medication Reconciliation Form, Thank You Letter, Antibiotic Education, Prescription Opioid Use form. - Follow up: Private Physician; When: Upon discharge from the Emergency Department; Reason: Recheck today's complaints, Continuance of care, Re-evaluation by your physician. - Problem is new. - Symptoms have improved. Signatures: Dispatcher [employer] EDCora Rapp RN RN ea Peltier, Brian, RN RN bp Wadley, Terrence, MD MD tw4 Edil Moyer RN RN mg2 Corrections: (The following items were deleted from the chart) 08:01 05:34 04/17/2020 05:34 Discharged to Home. Impression: Laceration without foreign body bp of other part of head; Contusion of other part of head; Concussion without loss of consciousness. Condition is Stable. Forms are Medication Reconciliation Form, Thank You Letter, Antibiotic Education, Prescription Opioid Use. Follow up: Private Physician; When: Upon discharge from the Emergency Department; Reason: Recheck today's complaints, Continuance of care, Re-evaluation by your physician. Problem is new. Symptoms have improved. tw4
[2020-04-17] MEDS ORDERED: TETANUS & DIPHTHERIA TOX,ADULT 0.5 ML VIAL ONE (06:04)
[2020-04-17] MEDS ORDERED: OXYMETAZOLINE HCL 0.05% 15ML NAS ONE (06:16)
[2020-04-17 08:27] VITALS: BP 110/65; TEMP 98; O2SAT 100
--- NOTE | 2020-04-18 09:52 | RAD REPORT ---
EXAM DESCRIPTION: CT - Head Brain Wo Cont - 04/17/2020 5:35 am CLINICAL HISTORY: 54 years Male TRAUMA COMPARISON: None TECHNIQUE: Contiguous axial images of the brain were obtained without the administration of intraven ous contrast.This exam was performed according to our departmental dose-optimization program which in cludes use of Automated Exposure Control, adjustment of the mA and/or kV according to patient size an d/or use of iterative reconstruction technique. DLP: 869 mGy*cm FINDINGS: Brain: No acute intracranial hemorrhage. No extra-axial collection. No mass effect or clara iation. Mild prominence of the sulci and cisterns. Confluent periventricular and subcortical white matter hypodensity is noted. Intracranial vascular calcifications. Ventricles: Within normal limits in size. Globes and orbits: No acute abnormality. Bones: No acute osseous finding Paranasal sinuses: Ethmoid mucosal thickening.. Mastoid air cells: Well pneumatized. Soft tissues: Left parietal laceration and associated swelling/skin staple row. IMPRESSION: No acute intracranial hemorrhage, hydrocephalus or herniation. Left parietal laceration and associated swelling/skin staple row. Cerebral volume loss and chronic small vessel ischemic changes. If persistent clinical concern for ac larry ischemia, consider MRI brain without contrast for further evaluation. Electronically signed by: Rustam Erickson DO 04/17/2020 3:28 AM CDT Due to temporary technical issues with the PACS/Fluency reporting system, reports are being signed by the in house radiologist without review as a courtesy to ensure prompt reporting. The interpreting r adiologist is fully responsible for the content of the report.
== END 2020-04-17 08:01 | disposition home or self-care (01) ==
LOC: ER 02:17
PROC: 0JQ00ZZ Repair Scalp Subcutaneous Tissue and Fascia, Open Approach (ICD-10-PCS; principal; 2020-04-17)
DX: S01.81XA Laceration without foreign body of other part of head, initial encounter (principal); S06.0X0A Concussion without loss of consciousness, initial encounter; W19.XXXA Unspecified fall, initial encounter; Y93.89 Activity, other specified; Y92.002 Bathroom of unspecified non-institutional (private) residence as the place of occurrence of the external cause; Z23 Encounter for immunization; Z88.6 Allergy status to analgesic agent; I10 Essential (primary) hypertension
CPT/HCPCS: 70450; 90471; 90714; 99284

== ENCOUNTER 2020-04-17 13:30 | Emergency (ER) | payer SELFPAY ==
--- OUTSIDE RECORDS SUMMARY | 2020-04-17 13:34 | XMS REPORT | Clinical Summary ---
:1965 Author Organization [employer] Address [address] [place] [address] Care Team Providers Name Role Phone Rose [...] sclerosis) HOURS. (FORMERLY [facility]) Active Problems Problem Noted Date Spasticity 10/29/2019 [...] scleros is) ([facility]LY [facility]) (Primary Dx) 12/25/2019 Telephone Neurology Dennise Parkinson ALS (amyotro aixa SERVIN lateral scleros is) ([facility]LY [facility]) (Primary Dx) 12/25/2019 Travel 11/10/2019 Orders Only Neurology Sandy Nation RN 09/18/2019 Lab Lab Sourav Velazco ALS (amyotrop hic MD trini Mohan scleros is) (FORM[facility]LY [facility]) 09/18/2019 Multidisciplinary Visit Neurology Sony Hernandez ALS (amyotrophic lateral sclerosis) ([facility]LY [facility]) (Primary Dx); MD Sloan Spasticity; Dennise Parkinson, Muscle cramp ing; RN Muscle weakness ; Risk for falls 09/18/2019 Documentation Neurology Sophia Price 09/10/2019 Orders Only Neurology Dennise Parkinson, ALS (amyotro phic RN lateral scleros is) ([facility]LY [facility]) (Primary Dx) 05/07/2019 Hospital Encounter Radiology Sourav Velazco ALS (am yotrophic lateral sclerosis) (FORM[facility]LY [facility]); MD Marques Type 2 diabetes mellitus with other ophthalmic complication, without long-term current use of insulin ([facility]) 05/07/2019 Procedure visit Neurology Sourav Velazco ALS (amyot rophic lateral sclerosis) ([facility]) (Primary Dx); MD Marques Weight loss, un intentional 05/07/2019 Orders Only Neurology Dennise Parkinson, ALS (amyotro phic lateral sclerosis) ([facility]) (Primary Dx); RN Muscle cramping 05/06/2019 Procedure visit Neurology Sourav Velazco Type 2 flo betes mellitus with other ophthalmic complication, without long-term current use of insulin ([facility]) (Primary Dx); MD Marques ALS (amyotrophi c lateral sclerosis) ([facility]); Weight loss, un intentional 05/06/2019 Orders Only Neurology Sandy Nation ALS (amyot rophic lateral sclerosis) ([facility]LY [facility]) (Primary Dx); RN Type 2 diabetes mellitus with other ophthalmic complication, without long- term current use of insulin ([facility]) 05/06/2019 Documentation ADMIN Michelet Flores 05/06/2019 Documentation ADMIN Michelet Flores 05/05/2019 Hospital Encounter Radiology Sourav Velazco MD 05/05/2019 Hospital Encounter Radiology Sourav Velazco MD 05/05/2019 Hospital Encounter Pulmonology Sourav Velazco (am yotrophic lateral sclerosis) ([facility]LY [facility]); MD Marques Weight loss, un intentional 05/05/2019 Procedure visit Neurology Sourav Velazco ALS (amyot rophic lateral sclerosis) ([facility]); MD Marques Weight loss, un intentional; Atrial fibrilla tion, unspecified type ([facility]) 05/05/2019 Social Work Neurology Joelle Vargas LCSW 05/05/2019 Orders Only Neurology Sandy Nation, Atrial fib rillation, RN unspecified typ e (HCC) (Primary Dx) 04/23/2019 Orders Only Neurology Sandy Nation, ALS (amyot rophic lateral sclerosis) ([facility]LY [facility]) (Primary Dx); RN Weight loss, un intentional [...] Comments Blood Pressure 137/96 09/18/2019 7:43 AM CARDIOTHORACIC ANESTHESIA TECHNICIAN Pulse 83 09/18/2019 7:43 AM CARDIOTHORACIC ANESTHESIA TECHNICIAN Temperature 36.4 C (97.6 F) 09/18/2019 7:43 AM CARDIOTHORACIC ANESTHESIA TECHNICIAN Respiratory Rate 16 09/18/2019 7:43 AM CARDIOTHORACIC ANESTHESIA TECHNICIAN Oxygen Saturation 98% 05/07/2019 10:00 AM CDT Inhaled Oxygen Concentration - - Weight 76.5 kg (168 lb 11.2 oz) 09/18/2019 7:43 AM CARDIOTHORACIC ANESTHESIA TECHNICIAN Height 165.1 cm (5' 5") 09/18/2019 7:43 AM CARDIOTHORACIC ANESTHESIA TECHNICIAN Body Mass Index 28.07 09/18/2019 7:43 AM CARDIOTHORACIC ANESTHESIA TECHNICIAN Plan of Treatment Date Type Specialty Care [...] ALS (amyotroph ic Results for this AM CARDIOTHORACIC ANESTHESIA TECHNICIAN lateral sclerosis) procedure are in ([facility]) the results section. IR LUMBAR PUNCTURE Routine 05/07/2019 9:45 ALS (amyotrophic R esults for this AM CDT lateral sclerosis) procedure are in ([facility]) the results Type 2 diabetes section. mellitus with other ophthalmic complication, without long-term current use of insulin (HCC) OLIGOCLONAL BANDING, Routine 05/07/2019 9:38 Res ults for this CSF AM CDT procedure are i n the results section. CSF CELL COUNT WITH Routine 05/07/2019 9:38 ALS (amyotrophic Results for this DIFFERENTIAL AM CDT lateral sclerosis) procedure are in ([facility]) the results Type 2 diabetes section. mellitus with other ophthalmic complication, without long-term current use of insulin ([facility]) GLUCOSE LEVEL, CSF Routine 05/07/2019 9:38 ALS (amyotrophic R esults for this AM CDT lateral sclerosis) procedure are in ([facility]) the results Type 2 diabetes section. mellitus with other ophthalmic complication, without long-term current use of insulin ([facility]) IGG SYNTHESIS RATE Routine 05/07/2019 9:38 ALS (amyotrophic R esults for this STUDY AM CDT lateral sclerosis) procedure are in ([facility]) the results Type 2 diabetes section. mellitus with other ophthalmic complication, without long-term current use of insulin ([facility]) LYME DISEASE REFLEXIVE Routine 05/07/2019 9:38 ALS (amyotroph ic Results for this PANEL, CSF AM CDT lateral sclerosis) procedure are in ([facility]) the results Type 2 diabetes section. mellitus with other ophthalmic complication, without long-term current use of insulin ([facility]) MYELIN BASIC PROTEIN Routine 05/07/2019 9:38 ALS (amyotrophic Results for this AM CDT lateral sclerosis) procedure are in ([facility]) the results Type 2 diabetes section. mellitus with other ophthalmic complication, without long-term current use of insulin ([facility]) POC GLUCOSE Routine 05/07/2019 9:11 Results for this AM CDT procedure are i n the results section. IGG SYNTHESIS RATE STAT 05/07/2019 6:55 ALS (amyotrophic R esults for this STUDY AM CDT lateral sclerosis) procedure are in ([facility]) the results section. HEMOGLOBIN A1C Routine 05/06/2019 9:52 Type 2 diabetes Result s for this AM CDT mellitus with other procedur e are in ophthalmic the results complication, section. without long-term current use of insulin ([facility]) EMG Routine 05/05/2019 3:47 ALS (amyotrophic Results for this PM CDT lateral sclerosis) procedure are in ([facility]) the results Weight loss, section. unintentional ECG 12-LEAD Routine 05/05/2019 12:27 Atrial fibrillation, Res ults for this PM CDT unspecified type procedure a re in ([facility]) the results section. SPIROMETRY, MIPS/MEPS Routine 05/05/2019 [...] are in ([facility]) the results Weight loss, section. unintentional HC [...] are in ([facility]) the results Weight loss, section. unintentional HEPATIC FUNCTION PANEL Routine 05/05/2019 7:08 ALS (amyotroph ic Results for this AM CDT lateral sclerosis) procedure are in (HCC) the results Weight loss, section. unintentional HTLV I/II AB WITH Routine 05/05/2019 7:08 ALS (amyotrophic Re sults for this REFLEX TO CONFIRMATION AM CDT lateral sclerosis) procedure are in ([facility]) the results Weight loss, section. unintentional LIPID [...] Results Hepatic function panel (09/18/2019 7:30 AM CARDIOTHORACIC ANESTHESIA TECHNICIAN)Only the most recent of2 results within the time period is included. Albumin 3.9 3.5 - 5.0 g/dL [facility] Total bilirubin 0.9 0.0 - 1.2 [facility] mg/dL [facility] Bilirubin direct <0.2 0.0 - 0.3 [facility] mg/dL [facility] Alkaline phosphatase 77 40 - 129 U/L [facility] Protein 7.9 6.3 - 8.3 g/dL [facility] Comment: HOSPITAL Bdjyeqa5261.6-7.0 g/dL 1 itdz8171.4-7.6 g/dL 7 months-4besu528.1-7.3 g/dL 1-2 orvos169.6-7.5 g/dL >3 .0-8.0 g/dL 18-3282824.3-8.3 g/dL ALT 28 5 - 50 U/L [facility] AST 25 10 - 50 U/L [facility] Specimen Plasma specimen Performing Organization Address City/State/Zipcode Phone Number [facility] DEPARTMENT OF PATHOLOGY AND [address] [place] [phone] GENOMIC MEDICINE [address] [address] IR Lumbar Puncture by Radiology (05/07/2019 9:45 [...] was 0.10 liza tavares. IMPRESSION: Lumbar puncture. [facility]-[id number] Procedure Note Interface, Radiology Results Incoming - [...] was 0.10 liza tavares. IMPRESSION: Lumbar puncture. [facility]-[id number] Performing Organization Address City/[facility]/Zipcode Phone Number [facility] [address] [place] [address] IgG synthesis rate study (05/07/2019 9:38 AM CDT)Only the most recent of2 resultswithin the time period is included. Pathologist Sig nature IgG albumin ratio, 0.11 0.00 - 0.23 [facility] IgG index, CSF 0.40 0.01 - 0.63 [facility] IgG synthetic rate -1.46 -9.90 - 3.30 [facility] mg/day [facility] Q-albumin ratio, CSF 5.11 2.00 - 7.50 [facility] IgG, CSF 2.05 1.00 - 3.00 [facility] mg/dL [facility] Albumin, CSF 19.43 10.00 - 30.00 [facility] mg/dL [facility] IgG 1,006 700 - 1,600 [facility] mg/dL [facility] Albumin, S 3,800.0 3,640.0 - [facility] 5,304.0 mg/dL [facility] Specimen Serum Performing Organization Address City/[facility]/Zipcode Phone Number [facility] DEPARTMENT OF PATHOLOGY AND [address] [place], [place] [address] [address] [address] Lyme disease reflexive panel, CSF (05/07/2019 9:38 [...] days. Test developed and characteristics determined by [employer]. See Compliance Statement B: [employer]/ CS Performed by [employer] [facility], [address] [place] [id number] [email or web address], Long Cardenas MD - Lab. Director Specimen Cerebrospinal fluid Performing Organization Address [facility] Centercode Phone Number [facility] [address] [place] [address] [facility] RE[facility] [address] [place] [address] Oligoclonal banding, CSF (05/07/2019 9:38 AM CDT) Protein, CSF 30 15 - 45 OBRIEN mg/dL [facility] Prealbumin, CSF 5.3 3.5 - 11.1 % [facility] Albumin, CSF 62.0 40.8 - 66.2 OBRIEN % [facility] Alpha 1, CSF 2.6 2.3 - 6.4 % [facility] Alpha 2, CSF 7.7 6.1 - 12.6 % [facility] Beta, CSF 15.8 11.7 - 24.1 OBRIEN % [facility] Gamma, CSF 6.6 5.6 - 12.2 % [facility] CSF extended See ALEXIS interpretation CommentComment: A ISLAM normal CSF protein [facility] study. No oligoclonal bands are seen. CSF interpretation See ALEXIS CommentComment: ISLAM Manan Wayne MD, PhD; [facility] Blanche Huerta MD; Deana Cruz, PhD; Tani Guerrier MD, PhD Specimen Cerebrospinal fluid Performing Organization Address [facility] Centercome Phone Number [facility] DEPARTMENT OF PATHOLOGY AND [address] [place] [address] [phone] [address] CSF cell count with differential (05/07/2019 9:38 AM CDT) Pathologist Sig nature Color, CSF Colorless [facility] Appearance, CSF Clear [facility] RBC, CSF 0 0 - 1 /CMM [facility] WBC, CSF 3 0 - 5 /CMM [facility] CSF mononuclear cell 3/CMM [facility] Specimen Cerebrospinal fluid Performing Organization Address City/[facility] Centercode Phone Number [facility] DEPARTMENT OF PATHOLOGY AND [address] [place] [address] [phone] [address] Myelin basic protein (05/07/2019 9:38 AM CDT) Myelin basic 5.03 0.00 - 5.50 [facility] protein Comment: ng/mL INTERPRETIVE INFORMATION: Myelin Basic Protein Test developed and characteristics determined by [employer]. See Compliance Statement D: [employer]/ CS Performed by [employer] [facility], [address] [place] [id number] [email or web address], Long Cardenas MD - Lab. Director Specimen Cerebrospinal fluid Performing Organization Address [facility] Phone Number [facility] [address] [place] [address] [facility] [address] [place] [address] Glucose level, CSF (05/07/2019 9:38 AM CDT) Pathologist Sig nature Glucose, CSF 109 (H) 40 - 70 mg/dL [facility] Specimen Cerebrospinal fluid Performing Organization Address City/[facility] Centercode Phone Number [facility] DEPARTMENT OF PATHOLOGY AND [address] [place] [address] [phone] [address] POC glucose (05/07/2019 9:11 AM CDT) Pathologist Sig nature POC glucose 180 (H) 65 - 99 mg/dL [facility] Comment: HOSPITAL No Action Needed Meter ID: [id number] Regulatory Specialist: Stu Aviles Specimen Performing Organization Address City/[facility]/Zipcode Phone Number [facility] DEPARTMENT OF PATHOLOGY AND [address] [place] [phone] [facility] [address] [place] [address] Hemoglobin A1c (05/06/2019 9:52 AM CDT) Hemoglobin A1C 9.6 (H) 4.0 - 5.6 % [facility] Comment: HOSPITAL HbA1c cutoffs for diagnosing diabetes: [...] Blood Performing Organization Address City/State/Zipcode Phone Number [facility] DEPARTMENT OF PATHOLOGY AND [address] [place] [address] [address] EMG general request (05/05/2019 3:47 PM CDT) [...] available. NERVE CONDUCTION AND ELECTROMYOGRAPHY REPORT Neurological [place], [facility]; [place], [place] [address]; Teleph one [phone] Name: Beto Luevano Date of Procedure: May [...] 372 [facility] MUSE QRS axis 1 51 [facility] MUSE T wave axis 51 [facility] MUSE EKG impression Atrial fibrillation [facility] MUSE with rapid ventricular response-Abnormal ECG-No previous ECGs available-Electronicall y Signed By Tani Aldana MD ([id number]) on 05/05/2019 8:30:59 PM Specimen Narrative Performed At This result has an attachment that is no t available. Performing Organization Address City/[facility] Centercode Phone Number [facility] MUSE [address] [place] [address] Spirometry, MIPS/MEPS (05/05/2019 7:33 AM CDT) Pathologist [...] Performing Organization Address City/State/Zipcode Phone Number [facility] [address] [place] [address] Estimated GFR (05/05/2019 7:08 AM CDT) Estimated GFR >=90 mL/min/1.73 OB[facility] ISLAM Comment: m2 HOSPITAL Catergory Units Interpretation G1 [...] specimen Performing Organization Address City/State/Zipcode Phone Number [facility] DEPARTMENT OF PATHOLOGY AND [address] [place] [phone] Syphilis total antibody (05/05/2019 7:08 AM CDT) Syphilis total Non-reactiveComment Non-reactive [facility] antibody : No serological HOSPITAL evidence of syphilis infection. Specimen Serum Narrative Performed At [facility] results called to and read back by [facility] DEPARTMENT OF PATHOLOGY AND [facility] LUIS PICKARD/ISSA(name/location)at MEDICINE 05/05/2019 10:12 (date/time) by PR1. Performing Organization Address City/[facility]/Zipcode Phone Number [facility] DEPARTMENT OF PATHOLOGY AND [address] [place] [phone] HIV Ag/Ab combination (05/05/2019 7:08 AM CDT) Pathologist [facility] HIV Ag/Ab combination Non-reactive Non-reactive [facility] Specimen Blood Performing Organization Address [facility]/Zipcode Phone Number [facility] DEPARTMENT OF PATHOLOGY AND [address] [place] [phone] HTLV I/II Ab with reflex to confirmation (05/05/2019 7:08 AM CDT) Pathologist Sig nature HTLV I/II Ab Negative Negative [facility] REF [facility] Comment: Based on the non-reactive anti-HTLV JANENE screen, the HTLV Western Blot is not indicated and therefore not performed. INTERPRETIVE INFORMATION: HTLV I/II Antibodies w/Ref alicia to Confirm This assay should not be used for blood donor screenin g, associated re-entry protocols, or for screening Human Cell, Tissues and Cellular and Tissue-Based Products (HCT/P) . Performed by [facility], [address] [place] [phone] [email or web address], Long Cardenas MD - Lab. Director Specimen Serum Narrative Performed At [facility] results called to and read back by OM LatamJUANITA GROVES/ISSA(name/location)at 05/05/2019 10:12 (date/time) by PR1. Performing Organization Address [facility] Centercode Phone Number [facility] [address] [place] [address] [facility] [address] [place] [address] Acetylcholine receptor binding Ab (05/05/2019 7:08 AM [...] antibodies. Test developed and characteristics determined by [facility]. See Compliance Statement B: [email or web address]/ Performed by [facility], [address] [place] [id number] [email or web address], Long Cardenas MD - Lab. Director Specimen Serum Narrative Performed At [facility] results called to and read back by LUIS GROVES/ISSA(name/location)at 05/05/2019 10:12 (date/time) by PR1. Performing Organization Address [facility]/Zipcode Phone Number [facility] [address] [place] [address] [facility] [address] [place] [address] B. burgdorferi Abs total, serum (05/05/2019 7:08 [...] antibody to B. burgdorferi detected. Performed by [facility], [address] [place] [address] [email or web address], Long Cardenas MD - Lab. Director Specimen Serum Narrative Performed At [facility] results called to and read back by LUIS GROVES/CHONU(name/location)at 05/05/2019 10:12 (date/time) by PR1. Performing Organization Address City/State/Zipcode Phone Number [facility] [address] [place] [address] [facility] [address] [place] [address] MARIE titer (05/05/2019 7:08 AM CDT) Pathologist Sig nature MARIE titer 1:80 (A) Not-Detected [facility] MARIE pattern Spindle (A) Not-Detected [facility] Specimen Blood Narrative Performed At [facility] results called to and read back by [facility] DEPARTMENT OF PATHOLOGY AND GENOMIC LUIS PICKARD/OPTU(name/location)at [facility] 05/05/2019 10:12 (date/time) by PR1. Performing Organization Address City/State/Zipcode Phone Number [facility] DEPARTMENT OF PATHOLOGY AND [address] [place], [place] [address] [address] [address] Vitamin D 25 hydroxy level (05/05/2019 7:08 AM CDT) Pathologist [facility] Vitamin D, 20.3 (L) 30.0 - 150.0 [facility] 25-hydroxy Comment: ng/mL HOSPITAL This assay reports [...] alternative methods. Specimen Blood Narrative Performed At [facility] results called to and read back by [facility] DEPARTMENT OF PATHOLOGY AND GENOMIC LUIS PICKARD/ISSA(name/location)at [facility] 05/05/2019 10:12 (date/time) by PR1. Performing Organization Address City/State/Zipcode Phone Number [facility] DEPARTMENT OF PATHOLOGY AND [address] [place], [place] [address] [facility] [address] [place] [address] CBC with platelet and differential (05/05/2019 7:08 AM CDT) WBC 6.81 4.50 - 11.00 [facility] k/uL [facility] RBC 4.77 4.40 - 6.00 [facility] [facility] HGB 14.7 14.0 - 18.0 [facility] g/dL [facility] HCT 42.6 41.0 - 51.0 % [facility] MCV 89.3 82.0 - 100.0 [facility] MCH 30.8 27.0 - 34.0 pg [facility] MCHC 34.5 31.0 - 37.0 [facility] g/dL [facility] RDW - SD 40.3 37.0 - 55.0 fL [facility] MPV 12.0 8.8 - 13.2 fL [facility] Platelet count 171 150 - 400 k/uL [facility] Nucleated RBC 0.00 /100 WBC [facility] Neutrophils 64.8 39.0 - 69.0 % [facility] Lymphocytes 20.0 (L) 25.0 - 45.0 % [facility] Monocytes 9.3 0.0 - 10.0 % [facility] Eosinophils 5.1 (H) 0.0 - 5.0 % [facility] Basophils 0.4 0.0 - 1.0 % [facility] Immature granulocytes 0.4Comment: 0.0 - 1.0 % [facility] granulocytes" (promyelocytes , myelocytes, metamyelocytes ) Specimen Blood Performing Organization Address City/State/Zipcode Phone Number [facility] DEPARTMENT OF PATHOLOGY AND [address] [place] [address] [phone] [address] Rheumatoid factor (05/05/2019 7:08 AM CDT) Pathologist Sig nature Rheumatoid factor <10 0 - 13 IU/mL [facility] LUBA Specimen Plasma specimen Narrative Performed At [facility] results called to and read back by [facility] DEPARTMENT OF PATHOLOGY AND [facility] LUIS PICKARD/CHONU(name/location)at MEDICINE 05/05/2019 10:12 (date/time) by PR1. Performing Organization Address [facility] Centercode Phone Number [facility] DEPARTMENT OF PATHOLOGY AND [address] [place] [address] [phone] [address] CRP high sensitivity (05/05/2019 7:08 AM CDT) CRP, high 11.65 mg/L [facility] sensitivity Comment: ISLAM Please note this test is different from [...] infection Specimen Plasma specimen Performing Organization Address City/[facility]/Zipcode Phone Number [facility] DEPARTMENT OF PATHOLOGY AND [address] [place] [address] [phone] [place] [address] MARIE (05/05/2019 7:08 AM CDT) Pathologist Sig bernadine MARIE screen Positive (A) Negative [facility] Specimen Blood Narrative Performed At [facility] results called to and read back by [facility] DEPARTMENT OF PATHOLOGY AND [facility] LUIS PICKARD/ISSA(name/location)at MEDICINE 05/05/2019 10:12 (date/time) by PR1. Performing Organization Address City/[facility] Centercode Phone Number [facility] DEPARTMENT OF PATHOLOGY AND [address] [place] [address] [phone] [address] Thyroid stimulating hormone (05/05/2019 7:08 AM CDT) Pathologist Sig [facility] TSH 2.39 0.27 - 4.20 uIU/mL [facility] ITAL Specimen Plasma specimen Performing Organization Address City/[facility] Centercode Phone Number [facility] DEPARTMENT OF PATHOLOGY AND [address] [place] [address] [phone] [address] T4, free (05/05/2019 7:08 AM CDT) Pathologist [facility] T4, free 1.3 0.9 - 1.7 ng/dL [facility] L Specimen Plasma specimen Performing Organization Address City/[facility] Centercode Phone Number [facility] DEPARTMENT OF PATHOLOGY AND [address] [place] [address] [phone] [address] Serum electrophoresis (05/05/2019 7:08 AM CDT) Protein 7.6 6.3 - 8.3 [facility] Comment: g/dL HOSPITAL 4.6-7.0 g/dL 1 week 4.4-7.6 g/dL 7 months-1year 5.1-7.3 g/dL 1-2 years 5.6-7.5 g/dL >3 years 6.0-8.0 g/dL 18-150 6.3-8.3 g/dL SPE albumin 4.92 4.00 - 5.30 [facility] g/dL [facility] SPE alpha 1 0.15 0.10 - 0.25 [facility] g/dL [facility] SPE alpha 2 0.77 0.58 - 0.84 [facility] g/dL [facility] SPE beta 0.95 0.50 - 1.10 [facility] g/dL [facility] SPE gamma 0.81 0.60 - 1.30 [facility] g/dL [facility] SPE extended See [facility] interpretation CommentComment: HOSPITAL A normal serum protein study. SPE interpretation See [facility] CommentComment: [facility] Manan Wayne MD, PhD; Blanche Huerta MD; Deana Cruz, PhD; Tani Guerrier MD, PhD Specimen Serum Performing Organization Address City/[facility] Centercode Phone Number [facility] DEPARTMENT OF PATHOLOGY AND [address] [place] [address] [place] [phone] Parathyroid hormone (05/05/2019 7:08 AM CDT) Pathologist [facility] PTH 37 15 - 65 pg/mL [facility] Specimen Blood Performing Organization Address [facility] Phone Number [facility] DEPARTMENT OF PATHOLOGY AND [address] [place] [phone] Folate level (05/05/2019 7:08 AM CDT) Pathologist [facility] Folate 18.2 4.8 - 24.2 ng/mL [facility] Specimen Serum Performing Organization Address [facility] Phone Number [facility] DEPARTMENT OF PATHOLOGY AND [address] [place] [address] [place] [phone] Vitamin B12 level (05/05/2019 7:08 AM CDT) Pathologist [facility] Vitamin B12 [phone] - 740 [facility] Comment: pg/mL HOSPITAL Significant overlap exists between normal and deficien cy states. However, most patients with deficiencies will have Ser um B12 <200 pg/mL. Specimen Serum Performing Organization Address [facility] Centercode Phone Number [facility] DEPARTMENT OF PATHOLOGY AND [address] [place] [phone] Creatine kinase, total (CPK) (05/05/2019 7:08 AM CDT) Pathologist Sig nature Creatine kinase 195 39 - 308 U/L [facility] Specimen Plasma specimen Performing Organization Address City/[facility]/Zipcode Phone Number [facility] DEPARTMENT OF PATHOLOGY AND [address] [place], [place] [phone] [facility] [address] [place] [address] Lipid panel (05/05/2019 7:08 AM CDT) Cholesterol 280 (H) <200 mg/dL [facility] Triglycerides 1,061 (A) <150 mg/dL [facility] HDL cholesterol 26 (L) >40 mg/dL [facility] LDL cholesterol 86Comment: Result <100 mg/dL ALEXIS obtained by direct ISLAM LDL measurement [facility] Lipid panel [facility] interpretation Comment: ISLAM Total Cholesterol (mg/dL) HOSPIT AL <200 Desirable [...] specimen Performing Organization Address City/State/Zipcode Phone Number [facility] DEPARTMENT OF PATHOLOGY AND [address] [place], [place] [phone] [facility] [address] [place] [address] Basic metabolic panel (05/05/2019 7:08 AM CDT) Pathologist Sig nature Sodium 137 135 - 148 mEq/L [facility] Potassium 4.1 3.5 - 5.0 mEq/L [facility] Chloride 99 98 - 112 mEq/L [facility] CO2 23 (L) 24 - 31 mEq/L [facility] Anion gap 15@ANIO 7 - 15 mEq/L [facility] BUN 20 6 - 20 mg/dL [facility] Creatinine 0.88 0.70 - 1.20 mg/dL [facility] Glucose 256 (H) 65 - 99 mg/dL [facility] Calcium 9.9 8.3 - 10.2 mg/dL [facility] Specimen Plasma specimen Performing Organization Address City/State/[facility] Centercode Phone Number [facility] DEPARTMENT OF PATHOLOGY AND [address] [place] [phone] GENOMIC MEDICINE [facility] [address] [place] [address] after 04/17/2019 Advance Directives For more information, please contact: [phone] Type Date Recorded Patient Morning Babysitter Explanati on Advance Directives, Living Will and Medical Power of Extension Forester
--- OUTSIDE RECORDS SUMMARY | 2020-04-17 13:35 | XMS REPORT | Continuity of Care Document ---
:1965 Author Organization [employer] Care Team Providers Name Role Phone [employer] Unavailable Un available Problems Problem Status Onset [...] [facility] 105 [facility] 16 02/23/2020 [facility] Neuro Temperature Oral (F) 96.0 F 02/23/2020 [facility] Height 162.56 cm 02/23/2020 [facility] Weight 75 02/23/2020 [facility] Neuro BMI Calculated 28.38 02/23/2020 [facility] Neuro Systolic (mm Hg) 127 07/16/2019 [facility] Diastolic (mm Hg) 100 07/16/2019 [facility] Ne uro Heart Rate 91 07/16/2019 [facility] Neuro Respitory Rate 16 07/16/2019 [facility] Neuro Height 165.1 cm 07/16/2019 [facility] Weight 75.909 07/16/2019 [facility] Neuro BMI Calculated 27.85 07/16/2019 [facility] Neuro Weight 77.273 04/16/2019 [facility] Neuro BMI Calculated 28.35 04/16/2019 [facility] Height 165.1 cm 04/16/2019 [facility] Heart Rate 101 04/16/2019 [facility] Respitory Rate 16 04/16/2019 [facility] Systolic (mm Hg) 125 04/16/2019 [facility] Diastolic (mm Hg) 78 04/16/2019 [facility] BMI Calculated 29.41 03/04/2019 [facility] Weight 77.727 03/04/2019 [facility] Height 162.56 cm 03/04/2019 [facility] Heart Rate 93 03/04/2019 [facility] Neuro Respitory Rate 16 03/04/2019 [facility] Systolic (mm Hg) 137 03/04/2019 [facility] Diastolic (mm Hg) 115 03/04/2019 [facility] Weight 33.636 01/28/2019 [facility] Neuro BMI Calculated 12.34 01/28/2019 [facility] Height 165.1 cm 01/28/2019 [facility] Respitory Rate 16 01/28/2019 [facility] Heart Rate 95 01/28/2019 [facility] Systolic (mm Hg) 127 01/28/2019 [facility] Diastolic (mm Hg) 84 01/28/2019 [facility] Encounters Location Location Encounter Encounter Reason Attending ADM CA Stat us Source Details Type Number For Provider Date Date Visit [facility] Outpatient [id number] Delf[facility] 01/28 01/29 [facility] [id number] [facility] 03/04 [facility] [place] [facility] [id number] Sammy 03/04 03/05 [facility] [place] [facility] [id number] [facility]elfino 04/02 [facility] [id number] Delfino 04/02 04/02 [facility] [place] [facility] [id number] Delfino 04/16 [facility] [place] [facility] [id number] Delfino 04/16 04/17 [facility] [place] [facility] [id number] Delfino 07/16 [facility] [place] [facility] [id number] Delfino 07/16 [facility] [place] [facility] [id number] Delfino 07/16 07/16 [facility] [place] [facility] Outpatient [id number] Delfino 07/16 07/17 [facility] [place] [facility] [id number] Delfino 11/17 [facility] [id number] Delfino 11/17 11/17 [facility] [place] [facility] [id number] [facility]elfino 02/22 [facility] [place] [facility] [id number] Sammy 02/22 02/23 [facility] [place] [facility] [id number] Delfino 08/25 [facility] [id number] [facility]elfino 08/25 [facility] [place] Procedures No Data Provided for This Section Assessment and Plan No Data Provided for This Section Plan of Care No Data Provided for This Section Social History Social History Date Source Social History TypeResponse 07/16/2019 [facility] Alcohol Type Beer, Wine, Liquor.1 Employment/School 2 Smoking Status Unknown if ever smoked; 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
--- OUTSIDE RECORDS SUMMARY | 2020-04-17 13:38 | XMS REPORT | Continuity of Care Document ---
:1965 Author Organization [facility] t Address [facility] [place] [address] Care Team Providers Name Role Phone Rose [...] Expiration Date S otis BCBSBCBS xxxxxxxxxxxx 2019 [place] CHOICE 00:00:00 [place] PPO/FEDERAL EMPL PPOxxxxxxxxxxx x2019-Pres entPPO Problems Condition Condition Condition Status Onset Resolution Last Treating Co mments Source Name Details Category Date Date Treatment Clinician Date Spasticity Spasticity Disease Active [place] Methodi 00:00: st 00 Risk for Risk for Disease Active [place] 10-29 Methodi 00:00: st 00 Muscle Muscle Disease Active [place] cramping cramping 8 Method i 00:00: st 00 Atrial Atrial Disease Active [place] fibrillati fibrillati 7-31 Me thodi on on 00:00: st 00 Neuropathy Neuropathy Problem Active [facility] 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 [facility] Essential Essential Problem Active [facility] hypertensi hypertensi Isabella kes - on on [facility]oria l [facility] Pure Pure Problem Active [facility] hyperchole hyperchole Isabella kes - sterolemia sterolemia Me moria l [facility] History of History of Problem Active [facility] alcoholism alcoholism Isabella kes - Memoria l [facility] Atrial Atrial Diagnosis Active [facility] fibrillati fibrillati Isabella kes - on, on, Memoria unspecifie unspecifie l d type d type [facility] Acute gout Acute gout Problem Active [facility] of right of right [facility] - foot, foot, Memoria unspecifie unspecifie l d cause d cause [facility] ALS ALS Problem Active [facility] (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 Me moria sclerosis) sclerosis) l [facility] Cervical Problem Resolve 2020-02-26 Me moria myelopathy d 00:26:35 l (disorder) Cervical He rmann myelopathy (disorder) [facility] Problem Active 2020-02-26 [facility] oria mellitus 00:26:35 l (disorder) Diabetes He rmann mellitus (disorder) Active Problem 02/26/2020 [facility] Hyperlipid Problem Active 2020-02-26 M emoria emia 00:26:35 l (disorder) Joaquin n Hyperlipid emia (disorder) Active Problem 02/26/2020 [facility] Hypertensi Problem Active 2020-02-26 M emoria ve 00:26:35 l disorder, [place] systemic Hypertensi arterial ve (disorder) disorder, systemic arterial (disorder) Active Problem 02/26/2020 [facility] Muscle Problem Active 2020-02-26 Memor ia atrophy 00:26:35 l (disorder) Muscle Herm blanca atrophy (disorder) Active Problem 02/26/2020 [facility] ALS ALS Disease Active [place] (amyotroph (amyotroph Me thodi ic lateral ic lateral st sclerosis) sclerosis) Muscle Muscle Disease Active [place] weakness weakness Method i st History of Past Illness Condition Condition Condition Status Onset Resolution Last Treating Co mments Source Name Details Category Date Date Treatment Clinician Date Cranial Cranial Disease Resolve 2019-05-06 2019-05-06 Micah nerve nerve d 00:00:00 15:49:51 Method i lesion lesion st Myasthenia Myasthenia Disease Resolve 2019-05-06 2019-05-06 [place] gravis gravis d 00:00:00 15:49:53 Method i [...] Memori a Medicati Medicati l on on [place] Allergie Allergie s s Family History Family Member Diagnosis Comments Start Date Stop Date Source Natural father Diabetes [facility] thodi Natural mother Hypertension [facility] Social History Social Habit Start Date Stop Date Quantity Comments Source Sex Assigned At [facility] ethodist Alcohol intake 2019-09-18 2019-09-18 Current drinker [place] 00:00:00 00:00:00 of alcohol (finding) Social History 2019-07-16 2019-07-16 [facility] 18:30:27 18:30:27 Smoking Status Start Date Stop Date Source Former smoker 2019-09-18 00:00:00 2019-09-18 00:00:00 [facility] Medications Ordered Filled Start Stop Current Ordering [...] - 00:00: evening Memoria 00 meal l [facility] riluzole 2020-0 2020- No [...] 0-24 [facility] - 00:00: Memoria 00 [facility] Riluzole 2018-10 Yes 50 mg, PO, Mem oria 0-10 Q12H, X 30 l 19:35: day, 0 [place] 00 Refill(s) Jardiance Jardiance Yes Ailyn [address] [facility] 8-15 [facility]o [facility] - 00:00: Memoria 00 [facility] Lisinopril Lisinopril Yes Ailyn [address] [facility] [address] 8-15 [facility] - 00:00: Memoria 00 [facility] baclofen Yes Take 1 Obrien (LIORESAL) [...] food [facility] - 00:00: Memoria 00 l [facility] Aspir-81 Aspir-81 Yes Ailyn [address] [facility] Metformin Metformin Yes Ailyn [address] HCl HCl Guo with meals [facility] Gemfibrozil Gemfibrozil Yes Ailyn TAKE [address] Guo TABLET [facility]ukes - TWICE A Memoria DAY l [facility] Vital Signs Vital Name Observation Time Observation Value Comments Source Systolic (mm Hg) 2020-02-23 16:47:00 Twanvaibhav Leroy Diastolic (mm Hg) 2020-02-23 16:47:00 [facility] yulisa Leroy Heart Rate 2020-02-23 16:47:00 [facility] Respitory Rate 2020-02-23 16:47:00 Jessica Frey Temperature Oral (F) 2020-02-23 16:47:00 96.0 F [facility] Height 2020-02-23 16:47:00 162.56 cm [facility] Weight 2020-02-23 16:47:00 [facility] BMI Calculated 2020-02-23 16:47:00 Jessica al [place] Systolic blood 2019-09-18 07:43:00 137 mm[Hg] Jeanneto n [place] pressure Diastolic blood 2019-09-18 07:43:00 96 mm[Hg] Sandra on [place] pressure Heart rate 2019-09-18 07:43:00 83 /min [place] Body temperature 2019-09-18 07:43:00 36.44 Kate [place] Respiratory rate 2019-09-18 07:43:00 16 /min [place] Body height 2019-09-18 07:43:00 165.1 cm [place] Body weight 2019-09-18 07:43:00 76.522 kg Obrien [place] BMI 2019-09-18 07:43:00 28.07 kg/m2 Obrien [place] Systolic (mm Hg) 2019-07-16 18:29:00 Twan riaedel Rad Diastolic (mm Hg) 2019-07-16 18:29:00 Mem orial [place] Heart Rate 2019-07-16 18:29:00 [facility] [place] Respitory Rate 2019-07-16 18:29:00 Memori al [place] Height 2019-07-16 18:29:00 165.1 cm [facility] Weight 2019-07-16 18:29:00 [facility] [place] BMI Calculated 2019-07-16 18:29:00 Memori al Rad Oxygen saturation in 2019-05-07 10:00:00 98 /min Obrien [place] Arterial blood by Pulse oximetry Weight 2019-04-16 16:37:00 [facility] BMI Calculated 2019-04-16 16:37:00 Memori al Rad Height 2019-04-16 16:37:00 165.1 cm [facility] [place] Heart Rate 2019-04-16 16:37:00 [facility] [place] Respitory Rate 2019-04-16 16:37:00 Memori al Rad Systolic (mm Hg) 2019-04-16 16:37:00 Twan rial Rad Diastolic (mm Hg) 2019-04-16 16:37:00 Mem orial Rad BMI Calculated 2019-03-04 18:57:00 Memori al Rad Weight 2019-03-04 18:57:00 [facility] [place] Height 2019-03-04 18:57:00 162.56 cm [facility] Heart Rate 2019-03-04 18:57:00 [facility] [place] Respitory Rate 2019-03-04 18:57:00 Memori al [place] Systolic (mm Hg) 2019-03-04 18:57:00 Twan rial [place] Diastolic (mm Hg) 2019-03-04 18:57:00 Mem orial [place] Weight 2019-01-28 20:06:00 [facility] [place] BMI Calculated 2019-01-28 20:06:00 Memori al [place] Height 2019-01-28 20:06:00 165.1 cm Memorial Rad Respitory Rate 2019-01-28 20:06:00 Memori al Rad Heart Rate 2019-01-28 20:06:00 [facility] [place] Systolic (mm Hg) 2019-01-28 20:06:00 Twan rial Rad Diastolic (mm Hg) 2019-01-28 20:06:00 Mem orial Rad Procedures Procedure Date / Time Performing Clinician Source Performed HEPATIC FUNCTION PANEL 2019-09-18 07:30:00 oSurav Velazco IR LUMBAR PUNCTURE 2019-05-07 09:45:32 Sourav Velazco MYELIN BASIC PROTEIN 2019-05-07 09:38:00 Sourav Velazco on [place] LYME DISEASE REFLEXIVE 2019-05-07 09:38:00 Sourav Velazco [...] HIGH SENSITIVITY 2019-05-05 07:08:00 Sourav Velazco on [place] VITAMIN B12 LEVEL 2019-05-05 07:08:00 Sourav Velazco [...] Sourav Velazco SERUM LIPID PANEL 2019-05-05 07:08:00 Soruav Velazco Dc thodist HTLV I/II AB WITH REFLEX 2019-05-05 07:08:00 Sourav Velazco TO CONFIRMATION HEPATIC FUNCTION PANEL 2019-05-05 07:08:00 Sourav Velazco FOLATE LEVEL 2019-05-05 07:08:00 Sourav Velazco Dc jaydonodi CREATINE KINASE, TOTAL 2019-05-05 07:08:00 Sourav Velazco (CPK) HC COMPLETE BLD COUNT 2019-05-05 07:08:00 Sourav Velazco W/AUTO DIFF BASIC METABOLIC PANEL 2019-05-05 07:08:00 Sourav Velazco MARIE 2019-05-05 07:08:00 Sourav Velazco Dc thodist ACETYLCHOLINE RECEPTOR 2019-05-05 07:08:00 Sourav Velazco BINDING AB ESTIMATED GFR 2019-05-05 07:08:00 Sourav Velazco Dc thodist MARIE TITER 2019-05-05 07:08:00 Sourav Velazco Dc thodist Plan of Care Planned Activity Planned Date Details Comments Source Future Scheduled 2020-05-07 INFLUENZA VACCINE Dennise Gómez Test 00:00:00 [code = INFLUENZA VACCINE] Future Scheduled 2014 COLONOSCOPY SCREENING Iban Gómez Test 00:00:00 [code = COLONOSCOPY SCREENING] Future Scheduled 2014 SHINGLES VACCINES (#1) [place] Test 00:00:00 [code = SHINGLES VACCINES (#1)] Future Scheduled 1974 DIABETIC FOOT EXAM [place] Test 00:00:00 [code = DIABETIC FOOT EXAM] Future Scheduled 1974 URINE MICROALBUMIN [place] Test 00:00:00 [code = URINE MICROALBUMIN] Future Scheduled 1964 DIABETIC RETINAL EYE [place]ze Test 00:00:00 EXAM [code = DIABETIC RETINAL EYE EXAM] Encounters Start End Encounter Admission Attending Care Care Encounter Source Date/Time Date/Time Type Type Clinicians Facility Department ID 2020-02-23 2020-02-23 Outpatient SHARDA McraeSCHDAVID [id number] 11:45:00 23:59:59 Delfino 07 Con 2020-02-19 2020-02-19 [facility] [id number] [facility] 09:20[facility]00 09:20:00 [facility] Medicine Outpati ent Clinics 2020-02-18 2020-02-18 [facility] [id number] 08:38:00 08:38:00 [facility] Medicine Outpati ent Clinics 2019-11-17 2019-11-17 [facility] [id number] 15:20:00 15:20:00 [facility] Medicine Outpati ent Clinics 2019-11-17 2019-11-17 Outpatient SHARDA Mcrae [id number] 13:15:00 13:15:00 [facility] 06 [facility] 2019-07-30 2019-07-30 [facility] [id number] 09:45:00 09:45:00 [facility] Medicine Outpati ent Clinics 2019-07-16 2019-07-16 Outpatient SHARDA Mcrae [id number] 13:45:00 23:59:59 Delfino 05 Con 2019-07-16 2019-07-16 Outpatient SHARDA Mcrae [id number] 11:30:00 11:30:00 Delfino 04 Con 2019-05-21 2019-05-21 [facility] [id number] 09:45:00 09:45:00 [facility] Medicine Outpati ent Clinics 2019-04-16 2019-04-16 Outpatient SHARDA Mcrae [facility] [id number] 11:30:00 23:59:59 [facility] 2019-04-02 2019-04-02 [facility] [id number] 11:45:00 11:45:00 Delfino [facility] 2019-03-19 2019-03-19 [facility] [id number] 15:39:00 15:39:00 [facility] Medicine Outpati ent Clinics 2019-03-04 2019-03-04 [id number] 13:00:00 23:59:59 Delfino [facility] 2019-02-04 2019-02-04 [facility] [id number] 14:15:00 14:15:00 [facility] Medicine Outpati ent Clinics 2019-01-28 2019-01-28 [id number] 14:30:00 23:59:59 Delfino 00 [facility] 2019-01-02 2019-01-02 [facility] [id number] 13:41:00 13:41:00 [facility] Medicine Outpati ent Clinics 2018-12-08 2018-12-08 [facility] [id number] 16:49:00 16:49:00 t [facility] Medicine Outpati ent Clinics 2018-12-04 2018-12-04 [facility] [id number] 13:59:00 13:59:00 [facility] Medicine Outpati ent Clinics 2018-11-26 2018-11-26 [facility] [id number] 16:33:00 16:33:00 [facility] [place] ent Clinics 2018-11-04 2018-11-04 Outpatient Fredo Chavarria [id number] 15:30:00 15:30:00 [facility] 2018-10-30 2018-10-30 Outpatient Fredo Yoot [id number] 15:49:00 15:49:00 [facility] [place] 2018-10-30 2018-10-30 Outpatient Fredo Yoot [id number] 15:00:00 15:00:00 [facility] Results Test Description Test Time Test Comments [...] (test code = 2885-2) 7.9 g/dL 6.3-8.3 Ryqchvy7907.6-7.0 g/dL1 rvon0427.4-7.6 g/dL7 months-3tayz570 .1-7.3 g/dL1-2 years99 5.6-7.5 g/dL>3 juexf385 .0-8.0 g/vA99-2469206. 3-8.3 g/dL ALT (test code = 1742-6) 28 U/L 5-50 AST (test code = 1920-8) 25 U/L 10-50 [place] MethodistMyelin basic [id number] 10:11:02 Test Item Value Reference Range Interpretation Comments Myelin basic 5.03 ng/mL 0-5.5 INTERPRETIVE IN FORMATION: protein (test code Myelin B asic ProteinTest = 2638-5) developed and characteristics determined by [facility]. S ee Compliance Stat ement D: [employer]Ki[employer]/CSP erformed by MALENA silva, [address] , [facility] [place] [address] [email or web address] , MD Heather James ab. Director [place] MethodistOligoclonal banding, [id number] 09:03:55 Test Item Value Reference Range Interpretation Comments Protein, CSF (test code 30 mg/dL 15-45 = 2880-3) Prealbumin, CSF (test 5.3 % 3.5-11.1 code = 76469-4) Albumin, CSF (test code 62.0 % 40.8-66.2 = 42084-7) Alpha 1, CSF (test code 2.6 % 2.3-6.4 = 66579-9) Alpha 2, CSF (test code 7.7 % 6.1-12.6 = 14895-9) Beta, CSF (test code = 15.8 % 11.7-24.1 86691-3) Gamma, CSF (test code = 6.6 % 5.6-12.2 17938-9) CSF extended See Comment A normal CSF interpretation (test protein study. No code = 96058-3) oligoclonal bands are seen. CSF interpretation See Comment Manan Wayne MD, PhD; (test code = 1163) Blanche Huerta MD; Deana Cruz, PhD; David Guerrier MD, Ph D [place] MethodistLyme disease reflexive panel, [id number] 17:12:56 Test Item Value Reference Range Interpretation Comments B. burgdorferi Abs 0.02 <=0.99 When the Borrelia JANENE, CSF (test code burgdo rferi Abs, Total by = 71180-0) JANENE result is negative, no further test [...] days. Test developed and characteristics determined by [facility] orisamuel. See Compliance Stat ement B: [employer]/CSP erformed by [facility], [address] [facility], [facility] [address] [email or web address], Long Cardenas MD - L ab. Director [place] MethodistIgG synthesis rate [id number] 11:45:25 Test Item Value Reference Range Interpretation Comments IgG albumin ratio, CSF (test 0.11 0.00-0.23 code = 1588) IgG index, CSF (test code = 0.40 0.01-0.63 08505-3) IgG synthetic rate (test -1.46 -9.90 - 3.30 mg-day code = 53350-4) Q-albumin ratio, CSF (test 5.11 2.00-7.50 code = 1756-6) IgG, CSF (test code = 2.05 mg/dL 1-3 2464-6) Albumin, CSF (test code = 19.43 mg/dL -30 40240-5) IgG (test code = 2465-3) 1006 mg/dL 700-1600 Albumin, S (test code = 3800.0 mg/dL 5894-1796 45872-0) Obrien MethodistAcetylcholine receptor binding [id number] 18:30:05 Test Item Value Reference Interpretation Comments [...] developed and characteris tics determined by [facility]. S ee Compliance Stat ement B: [employer]wi/CSP erformed by MALENA silva, [address] [place] [address] [email or web address] , MD Heather James L ab. Director JEN (test code = TRIG results JEN) called to and read back by LUIS PICKARD/ISSA (name/locati on)at 05/05/2019 10:12 (date/time) by PR1. Micah EricA [id number] 14:38:37 Test Item Value Reference Range Interpretation Comments MARIE titer (test code = 1:80 Not-Detected A 32807-3) MARIE pattern (test code = Spindle Not-Detected A 43204-0) JEN (test code = JEN) TRIG results called to and read back by LUIS PICKARD/ISSA(name/l ocation)at 05/05/2019 10:12 (date/time) by PR1. Lab Interpretation (test Abnormal code = 36063-6) Micah [id number] 14:34:11 Test Item Value Reference Range Interpretation Comments MARIE screen (test code = Positive Negative A 550) JEN (test code = JEN) TRIG results called to and read back by LUIS PICKARD/ISSA(name/l ocation)at 05/05/2019 10:12 (date/time) by PR1. Lab Interpretation (test Abnormal code = 38077-9) Micah GómezGlucose level, [id number] 12:02:47 Test Item Value Reference Range Interpretation Comments Glucose, CSF (test code = 2342-4) 109 mg/dL 40-70 H Lab Interpretation (test code = Abnormal 21764-3) Micah GómezCSF cell count with [id number] 11:50:58 Test Item Value Reference Range Interpretation Comments Color, CSF (test code = 68541-8) Colorless Appearance, CSF (test code = Clear 78073-1) RBC, CSF (test code = 27900-8) 0 0- 1 /CMM WBC, CSF (test code = 53309-2) 3 0- 5 /CMM CSF mononuclear cell (test code = 3/CMM 90608-6) Micah GómezIR Lumbar Puncture by [id number] 10:12:17Hm Interface, Radiology Results - 05/07/2019 10:15 [...] by mistake.The total fluoroscopy timewas 0.10 minutes.IMPRESSION:Lumbar puncture.[facility]-[id number] [facility] glucose 2019-05-07 09:12:43 Test Item Value Reference Range Interpretation Comments POC glucose (test code = 180 mg/dL 65-99 H No Action 48225-2) NeededMeter ID: [id number] tor: February Lab Interpretation (test Abnormal code = 29067-5) Micah GómezB. burgdorferi Abs total, [id number] 00:00:46 Test Item Value Reference Range Interpretation [...] antibody to B. burgdorferi detected.Perfor med by [facility], [address] , [facility] [place] [address] [email or web address] , Long Cardenas MD - Lab. Director JEN (test code = TRIG results JEN) called to and read back by LUIS PICKARD/ISSA(na me/location)at 05/05/2019 10:12 (date/time) by BRIANNE GómezHTLV I/II Ab with reflex to [id number] 21:02:50 Test Item Value Reference Range Interpretation Comments HTLV I/II Ab Negative Negative Based on the (test code = non-reactive 94513-7) anti-HTLV JANENE screen, the HTL V Western Blot is not indicated and therefore not performed.INTER PRETIV E INFORMATION: HTLV I/II Antibodies w/Reflex t o ConfirmThis ass ay should not be u sed for blood donor screening, asso ciated re-entry protoc ols, or for screenin g Human Cell, Tis sues and Cellular an d Tissue-Based Pr oducts (HCT/P).Perform ed by [facility], [address], [facility] [place] [id number] [email or web address] , Long Cardenas MD - Lab. Director JEN (test code TRIG results = JEN) called to and read back by LUIS PICKARD/ISSA(name/ location)at 05/05/2019 10:12 (date/time) by BRIANNE [employer] [id number] 16:20:51 Test Item Value Reference Range Interpretation Comments Protein (test code = 7.6 g/dL 6.3-8.3 [place] 2885-2) 4.6-7.0 g/dL 1 week 4.4-7.6 g/dL7 [...] serum interpretation (test protein study. code = 26316-4) SPE interpretation (test See Comment Manan Wayne MD, PhD; code = 2218) Emir Harrison; Deana Cruz, PhD; Er michael Guerrier MD, Ph D [place] MethodistHemoglobin [id number] 10:33:33 Test Item Value Reference Range Interpretation Comments Hemoglobin A1C (test 9.6 % 4-5.6 H HbA1c c utoffs for code = 23680-1) diagnosing diabetes:4.0% - 5.6% = normal5.7% - [...] diabetes. Lab Interpretation (test Abnormal code = 98787-2) Micah GómezECG 12 [id number] 20:31:03 Test Item Value Reference Range Interpretation [...] on 05/05/2019 8:30:59 PM Micah MethodistSyphilis total [id number] 16:24:47 Test Item Value Reference Range Interpretation Comments Syphilis total Non-reactive Non-reactive No serologica l antibody (test evidence of s yphilis code = 6194) infection. JEN (test code = TRIG results JEN) called to and read back by LUIS PICKARD/ISSA(nam e/location)at 05/05/2019 10:12 (date/time) by PR1. Micah MethodistVitamin D 25 hydroxy [id number] 15:14:21 Test Item Value Reference Range Interpretation [...] PR1. Lab Interpretation Abnormal (test code = 58541-5) Micah MethodistRheumatoid [id number] 12:39:07 Test Item Value Reference Range Interpretation Comments Rheumatoid factor (test <10 0- 13 IU/mL code = 28632-7) JEN (test code = JEN) TRIG results called to and read back by LUIS PICKARD/ISSA(name/loc ation)at 05/05/2019 10:12 (date/time) by PR1. Micah MethodistCRP high [id number] 12:27:13 Test Item Value Reference Range Interpretation Comments CRP, high 11.65 mg/L Please note thi s test sensitivity (test is differe nt from the code = 91980-2) C-Reactive P rotein (CRP) assay. CR P [...] infla mmation or infection Micah GómezHIV Ag/Ab boeitztazhl3829-06-05 10:34:49 Test Item Value Reference Range Interpretation Comments HIV Ag/Ab combination (test code Non-reactive Non-reactive = 5299) Micah GómezVitamin B12 [id number] 10:05:42 Test Item Value Reference Range Interpretation Comments Vitamin B12 (test 779 pg/mL 211-946 Significan t overlap code = 2132-9) exists betwee n normal and deficiency states.However, most patients with deficiencies wi ll have Serum B12 <2 00 pg/mL. Micah MethodistFolate [id number] 10:05:42 Test Item Value Reference Range Interpretation Comments Folate (test code = 2284-8) 18.2 ng/mL 4.8-24.2 Micah De La TorreistLipid [id number] 10:04:40 Test Item Value Reference Interpretation Comments [...] interpretation <200 (test code = Desirable 200-239 59993-7) Borderline -high >=240 Hi gh Triglyceri charity [...] mg/dL) Lab Interpretation Abnormal (test code = 70063-9) Micah De La TorreistT4, [id number] 10:04:40 Test Item Value Reference Range Interpretation Comments T4, free (test code = 3024-7) 1.3 ng/dL 0.9-1.7 Obrien MethodistThyroid stimulating [id number] 10:04:40 Test Item Value Reference Range Interpretation Comments TSH (test code = 3016-3) 2.39 0.27- 4.20 uIU/mL Micah GómezParathyroid [id number] 10:00:40 Test Item Value Reference Range Interpretation Comments PTH (test code = 2731-8) 37 pg/mL 15-65 Obrien MethodistBasic metabolic [id number] 09:52:26 Test Item Value Reference Range Interpretation Comments Sodium (test code = 2951-2) 137 135- 148 mEq/L Potassium (test code = 2823-3) 4.1 3.5- 5.0 mEq/L Chloride (test code = 2075-0) 99 98- 112 mEq/L CO2 (test code = 2027-9) 23 24- 31 mEq/L L Anion gap (test code = 90800-1) 15@ANIO 7- 15 mEq/L BUN (test code = 3094-0) 20 mg/dL 6-20 Creatinine (test code = 2160-0) 0.88 mg/dL 0.7-1.2 Glucose (test code = 2345-7) 256 mg/dL 65-99 H Calcium (test code = 31440-7) 9.9 mg/dL 8.3-10.2 Lab Interpretation (test code = Abnormal 07778-5) Obrien MethodistCreatine kinase, total (CPK)2019-05-05 09:52:25 Test Item Value Reference Range Interpretation Comments Creatine kinase (test code = 2157-6) 195 U/L 39-308 Micah MethodistEstimated [id number] 09:52:25 Test Item Value Reference Range Interpretation Comments Estimated GFR (test >=90 mL/min/1.73 m2 [facility] Units code = 5488) InterpretationG 1 >=90 Normal or highG2 60-89 Mildly rdurgruwyZ6x 45-59 Mildly to mode rately nwesawaaeR4o 30-44 Moderately to severely decreasedG4 15-29 Severely decre asedG5 <15 Kidn ey failureThe eGFR was calculated lynda robertson the Chronic Kidney Disease Epidemiology Co llaboration (CKD-EPI) equat ion. Interpretation is based on recommendations of the National Kidney Foundation-Kidn ey Disease Outcomes Qualit y Initiative (NKF-KDOQI) pub lished in 2014. Micah MethodistCBC with platelet and [id number] 09:21:03 Test Item Value Reference Range Interpretation Comments WBC (test code = 20683-3) 6.81 4.50- 11.00 k/uL RBC (test code = 99628-9) 4.77 m/uL 4.4-6 HGB (test code = 718-7) 14.7 g/dL 14-18 HCT (test code = 4544-3) 42.6 % 41-51 MCV (test code = 787-2) 89.3 fL 82-100 MCH (test code = 785-6) 30.8 pg 27-34 MCHC (test code = 786-4) 34.5 g/dL 31-37 RDW - SD (test code = 40.3 fL 37-55 39670-9) MPV (test code = 41137-3) 12.0 fL 8.8-13.2 Platelet count (test code 171 150- 400 k/uL = 53824-3) Nucleated RBC (test code 0.00 /100 WBC = 76694-1) Neutrophils (test code = 64.8 % 39-69 27339-8) Lymphocytes (test code = 20.0 % 25-45 L 22106-6) Monocytes (test code = 9.3 % 0-10 38579-2) Eosinophils (test code = 5.1 % 0-5 H 09908-0) Basophils (test code = 0.4 % 0-1 86886-5) Immature granulocytes 0.4 % 0-1 "Immat ure (test code = 34920-6) granul ocytes" (promyelocytes, myelocytes, metamyelocytes) Lab Interpretation (test Abnormal code = 84122-2) Obrien MethodistSpirometry, [facility]/[id number] 07:33:12 Test Item Value Reference Range Interpretation [...]
--- OUTSIDE RECORDS SUMMARY | 2020-04-17 13:38 | XMS REPORT ---
[...] End Status Dosage System Date Date Carvedilol [facility] 46848081961 12.5 MG Orally Jul 30, Active wi th food Twice a day 2018 Gemfibrozil [facility] 09683124690 600 MG Active TAKE 1 TABLET TWICE A DAY Metformin HCl [facility] 02424650854 1000 MG Orally Active 1 tablet Twice a day with meals Jardiance [facility] 01453079596 10 MG Orally May 21, Active 1 tab let Once a day 2018 Janumet XR [facility] 12407058091 50-1000 MG Nov 17, Active 2 tabl ets Orally Once a 2019 with day before evening dinner meal Aspir-81 [facility] 10765901842 81 MG Orally Active 1 tabl et Once a day Lisinopril ND 91236846785 5 MG Orally Once May 21, Active 1 tablet a day 2018 Xarelto [facility] 26486956334 20 MG Orally Active 1 table t Once a day with food Results No Known Results Summary Purpose eClinicalWorks Submission
[2020-04-17] MEDS ORDERED: ONDANSETRON 4 MG (ODT) TAB ONE (14:36)
[2020-04-17] MEDS ORDERED: MORPHINE 4 MG/ML SYR ONE (14:36)
--- NOTE | 2020-04-17 15:16 | ER ---
Nurse's Notes [facility] Name: Beto Luevano Age: 54 yrs Sex: Male : 1965 Arrival Date: 04/17/2020 Time: 13:33 Bed 24 Private MD: Diagnosis: Laceration without foreign body of scalp Presentation: 04/17 14:22 Acuity: JUAN 4 iw 14:22 Chief complaint: Patient states: was seen here earlier, had lac repair to top of head, iw still bleeding. Ebola Screen: Patient negative for fever greater than or equal to 101.5 degrees Fahrenheit, and additional compatible Ebola Virus Disease symptoms Patient denies exposure to infectious person. Patient denies travel to an Ebola-affected area in the 21 days before illness onset. No symptoms or risks identified at this time. Mechanism of Injury: resulted from a fall. Initial Sepsis Screen: Does the patient meet any 2 criteria? No. Patient's initial sepsis screen is negative. Does the patient have a suspected source of infection? No. Patient's initial sepsis screen is negative. Risk Assessment: Do you want to hurt yourself or someone else? Patient reports no desire to harm self or others. 14:25 Coronavirus screen: Proceed with normal triage. iw 14:25 Method Of Arrival: Wheelchair iw 14:25 Onset of symptoms was April 17, 2020. iw Triage Assessment: 14:25 General: Appears in no apparent distress. Behavior is calm, cooperative. iw 14:25 Neuro: Level of Consciousness is awake, alert, obeys commands, Reports. iw Historical: - Allergies: 19:52 Ibuprofen; iw - PMHx: 14:45 Hypertension; iw - Immunization history:: Adult Immunizations. - Social history:: Smoking status: unknown. Screenin:35 Abuse screen: Denies threats or abuse. Denies injuries from another. Nutritional iw screening: No deficits noted. Tuberculosis screening: No symptoms or risk factors identified. Fall Risk Fall in past 12 months (25 points). Assessment: 14:45 General: Appears in no apparent distress. Behavior is calm, cooperative. Pain: iw Complains of pain in head and face. Neuro: Level of Consciousness is awake, alert, obeys commands, Oriented to person, place, time, situation. Cardiovascular: Patient's skin is warm and dry. Respiratory: Respiratory effort is even, unlabored, Respiratory pattern is regular. EENT: Nares with bleeding noted on right. Musculoskeletal: Range of motion: limited in all extremities. Injury Description: laceration to top of head, repaired with zachary, still oozing blood. Vital Signs: 14:35 BP 134 / 75; Pulse 74; Resp 16; Temp 98.0; Pulse Ox 100% on R/A; iw Radha Coma Score: 14:22 Eye Response: spontaneous(4). Verbal Response: oriented(5). Motor Response: obeys iw commands(6). Total: 15. ED Course: 13:33 Patient arrived in ED. ag5 13:45 Abhishek Hampton PA is PHCP. jr8 13:45 Laureano Whitney MD is Attending Physician. jr8 14:06 Keyanna Cardenas, RN is Primary Nurse. iw 14:22 Triage completed. iw 14:25 Arm band placed on. iw 14:25 Patient has correct armband on for positive identification. iw 15:00 Assist provider with laceration repair on scalp that was between 2.6 to 7.5 cm using iw zachary. Set up tray. Performed by Abhishek CATHERINE Dressed with 4X4s. Patient did not have IV access during this emergency room visit. Administered Medications: 14:34 Drug: morphine 4 mg Route: IM; Site: left deltoid; iw 14:34 Drug: Zofran (Ondansetron) 4 mg Route: PO; iw Outcome: 15:15 Discharge ordered by . jr8 15:44 Discharged to home via wheelchair, with family. iw 15:44 Condition: good 15:44 Discharge instructions given to patient, Instructed on discharge instructions, follow up and referral plans. 15:45 Patient left the ED. iw Signatures: Keyanna Cardenas, RN RN Abhishek Robles PA PA jr8 BrunoRuben minaya ag5
--- NOTE | 2020-04-17 15:16 | EDPHYS ---
Physician Documentation [facility] Name: Beto Luevano Age: 54 yrs Sex: Male : 1965 Arrival Date: 04/17/2020 Time: 13:33 Bed 24 Private MD: ED Physician Laureano Whitney HPI: 04/17 14:18 This 54 yrs old Male presents to ER via Unassigned with complaints of Head jr8 Injury-Adult. 14:18 Onset: The symptoms/episode began/occurred acutely, last night. Severity of symptoms: jr8 At their worst the symptoms were mild, in the emergency department the symptoms are unchanged. The patient has not experienced similar symptoms in the past. The patient has been recently seen at the [facility] Emergency Department, today. Patient stated that he was seen earlier for fall and had praneeth placed in head. Stated that he is still oozing blood. Patient on Xarelto as well . Historical: - Allergies: 19:52 Ibuprofen; iw - PMHx: 14:45 Hypertension; iw - Immunization history:: Adult Immunizations. - Social history:: Smoking status: unknown. ROS: 14:18 Eyes: Negative for injury, pain, redness, and discharge, ENT: Negative for injury, jr8 pain, and discharge, Neck: Negative for injury, pain, and swelling, Cardiovascular: Negative for chest pain, palpitations, and edema, Respiratory: Negative for shortness of breath, cough, wheezing, and pleuritic chest pain, Abdomen/GI: Negative for abdominal pain, nausea, vomiting, diarrhea, and constipation, Back: Negative for injury and pain, MS/Extremity: Negative for injury and deformity, Neuro: Negative for headache, weakness, numbness, tingling, and seizure. 14:18 Skin: Positive for laceration(s), of the scalp. Exam: 14:18 Eyes: Pupils equal round and reactive to light, extra-ocular motions intact. Lids and jr8 lashes normal. Conjunctiva and sclera are non-icteric and not injected. Cornea within normal limits. Periorbital areas with no swelling, redness, or edema. ENT: Nares patent. No nasal discharge, no septal abnormalities noted. Tympanic membranes are normal and external auditory canals are clear. Oropharynx with no redness, swelling, or masses, exudates, or evidence of obstruction, uvula midline. Mucous membranes moist. Cardiovascular: Regular rate and rhythm with a normal S1 and S2. No gallops, murmurs, or rubs. Normal PMI, no JVD. No pulse deficits. Respiratory: Lungs have equal breath sounds bilaterally, clear to auscultation and percussion. No rales, rhonchi or wheezes noted. No increased work of breathing, no retractions or nasal flaring. Abdomen/GI: Soft, non-tender, with normal bowel sounds. No distension or tympany. No guarding or rebound. No evidence of tenderness throughout. Back: No spinal tenderness. No costovertebral tenderness. Full range of motion. Skin: Warm, dry with normal turgor. Normal color with no rashes, no lesions, and no evidence of cellulitis. MS/ Extremity: Pulses equal, no cyanosis. Neurovascular intact. Full, normal range of motion. Neuro: Awake and alert, GCS 15, oriented to person, place, time, and situation. Cranial nerves II-XII grossly intact. Motor strength 5/5 in all extremities. Sensory grossly intact. Cerebellar exam normal. Normal gait. 14:18 Head/face: Noted is a laceration(s), that is deep, that is linear, 10 cm(s), of the scalp. Vital Signs: 14:35 BP 134 / 75; Pulse 74; Resp 16; Temp 98.0; Pulse Ox 100% on R/A; iw Radha Coma Score: 14:22 Eye Response: spontaneous(4). Verbal Response: oriented(5). Motor Response: obeys iw commands(6). Total: 15. Laceration: 14:03 Wound Repair of 2cm ( 0.8in ) subcutaneous laceration to scalp. Minimal bleeding jr8 noted.. Distal neuro/vascular/tendon intact. Wound prep: Simple cleansing with hibiclenz. Skin closed with 3 1-0 Praneeth using staple gun. Patient tolerated well. MDM: 13:45 Patient medically screened. jr8 14:18 Data reviewed: vital signs, nurses notes. Data interpreted: Pulse oximetry: on room air jr8 is 100 %. Interpretation: normal. Counseling: I had a detailed discussion with the patient and/or guardian regarding: the historical points, exam findings, and any diagnostic results supporting the discharge/admit diagnosis, the need for outpatient follow up, a family practitioner, to return to the emergency department if symptoms worsen or persist or if there are any questions or concerns that arise at home. ED course: Patient required 3 more praneeth to scalp to control bleeding areas. No with full hemostasis. Will send home to f/u in next 7-10 days for staple reevaluation and removal if ready . Administered Medications: 14:34 Drug: morphine 4 mg Route: IM; Site: left deltoid; iw 14:34 Drug: Zofran (Ondansetron) 4 mg Route: PO; iw Disposition: 17:58 Co-signature as Attending Physician, Laureano Whitney MD. rn Disposition: 04/17/20 15:15 Discharged to Home. Impression: Laceration without foreign body of scalp. - Condition is Stable. - Discharge Instructions: Laceration Care, Adult, Stitches, [place], or Adhesive Wound Closure. - Medication Reconciliation Form, Thank You Letter, Antibiotic Education, Prescription Opioid Use form. - Follow up: Private Physician; When: 7 - 10 days; Reason: Wound Recheck, Recheck today's complaints, Continuance of care, Staple/Suture removal, Re-evaluation by your physician. - Problem is new. - Symptoms have improved. Signatures: Keyanna Cardenas RN RN iw Laureano Whitney MD MD rn Roszak, Josh, PA PA jr8 Corrections: (The following items were deleted from the chart) 15:45 15:15 04/17/2020 15:15 Discharged to Home. Impression: Laceration without foreign body iw of scalp. Condition is Stable. Forms are Medication Reconciliation Form, Thank You Letter, Antibiotic Education, Prescription Opioid Use. Follow up: Private Physician; When: 7 - 10 days; Reason: Wound Recheck, Recheck today's complaints, Continuance of care, Staple/Suture removal, Re-evaluation by your physician. Problem is new. Symptoms have improved. jr8
[2020-04-17 15:53] VITALS: BP 134/75; TEMP 98; O2SAT 100
== END 2020-04-17 15:45 | disposition home or self-care (01) ==
LOC: ER 13:30
PROC: 0JQ00ZZ Repair Scalp Subcutaneous Tissue and Fascia, Open Approach (ICD-10-PCS; principal; 2020-04-17)
DX: S01.01XD Laceration without foreign body of scalp, subsequent encounter (principal); I10 Essential (primary) hypertension; Z79.01 Long term (current) use of anticoagulants; Z88.6 Allergy status to analgesic agent
CPT/HCPCS: 96372; 99283

== ENCOUNTER 2021-12-27 21:32 | Emergency (ER) | payer OTHER ==
--- OUTSIDE RECORDS SUMMARY | 2021-12-27 21:33 | XMS REPORT | Continuity of Care Document ---
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 [facility] Essential Essential Problem Active [facility] hypertensi hypertensi Isabella kes - on on Memoria l [facility] Pure Pure Problem Active [facility] hyperchole hyperchole Isabella kes - sterolemia sterolemia Me moria l [facility] History of History of Problem Active [facility] alcoholism alcoholism [facility] k[facility] Atrial Atrial Diagnosis Active [facility] fibrillati fibrillati Isabella kes - on, on, Memoria unspecifie unspecifie l d type d type [facility] Acute gout Acute gout Problem Active [facility] of right of right [facility] - foot, foot, Memoria unspecifie unspecifie l d cause d [facility] 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 Clinician (SIG) Name Name Janumet XR Janumet XR Yes Ailyn [address] [facility] 2[facility]11 [facility] with [facility] - 00:00: evening Memoria 00 meal l [facility] Carvedilol Carvedilol 2018-10 Yes Ailyn with food [facility] 0[facility]24 [facility] Jardiance Jardiance Yes Ailyn [address] [facility] 8[facility]15 [facility]: [facility] Lisinopril Lisinopril Yes Ailyn [address] [facility] 8[facility]15 [facility] - 00:[facility]: Mem [facility] Clinics Xarelto Xarelto Yes Ailyn [address] 3-04 [facility] with food [facility] - 00:00: Memoria 00 l Outpati ent Clinics -81 Yes Ailyn [address] [facility] Metformin Metformin Yes Ailyn [address] HCl HCl [facility] with meals [facility] Gemfibrozil Gemfibrozil Yes Ailyn TAKE [address] [facility]o TABLET [facility] Procedures This patient has no known procedures. Encounters Start End Encounter Admission Attending Care Care Encounter Source Date/Time Date/Time Type Type Clinicians Facility Department ID 2021-11-[address] [facility] [id number] [facility] [address] 11:06:24 Sammy [id number] [facility] ent [facility] 2020-09-08 2020-09-08 Outpatient [facility] [id number] 00:00:00 00:00:00 [place] [address] 2020-09-08 2020-09-08 Outpatient [facility] [id number] 00:00:00 00:00:00 [place] [address] 2020-02-19 2020-02-19 [facility] [id number] 09:20:00 09:20:00 [facility] 2020-02-18 2020-02-18 [facility] [id number] 08:38:00 08:38:00 [facility] ent Clinics 2019-11-17 2019-11-17 [facility] [id number] 15:20:00 15:20:00 t [facility] Medicine Outpati ent Clinics 2019-07-30 2019-07-30 [facility] [id number] 09:45:00 09:45:00 t [facility] Medicine Outpati ent Clinics 2019-05-21 2019-05-21 [facility] [id number] 09:45:00 09:45:00 t [facility] Medicine Outpati ent Clinics 2019-05-05 2019-05-05 Outpatient GHANSHYAM, [facility] [id number] [address] [place] [address] 00:00:00 00:00:00 NELLI [address] 2019-05-05 2019-05-05 Outpatient GHANSHYAM, [facility] [id number] [address] [place] [address] 00:00:00 00:00:00 NELLI [address] 2019-03-19 2019-03-19 [facility] [id number] 15:39:00 15:39:00 t [facility] Medicine Outpati ent Clinics 2019-02-04 2019-02-04 [facility] [id number] 14:15:00 14:15:00 [facility] Medicine Outpati ent Clinics 2019-01-02 2019-01-02 [facility] [id number] 13:41:00 13:41:00 t [facility] Medicine Outpati ent Clinics 2018-12-08 2018-12-08 [facility] [id number] 16:49:00 16:49:00 [facility] Medicine Outpati ent Clinics 2018-12-04 2018-12-04 [facility] [id number] 13:59:00 13:59:00 [facility] Medicine Outpati ent Clinics 2018-11-26 2018-11-26 Outpatient Fredo Chavarria [id number] 16:33:00 16:33:00 [facility] 2018-11-04 2018-11-04 Outpatient Fredo Chavarria [id number] 15:30:00 15:30:00 t [facility] ent Clinics 2018-10-30 2018-10-30 Outpatient Fredo Chavarria [id number] 15:49:00 15:49:00 [facility] Clinics 2018-10-30 2018-10-30 Outpatient Fredo Chavarria [id number] 15:00:00 15:00:00 [facility] Results This patient has no known results.
[2021-12-27] MEDS ORDERED: MORPHINE 4 MG/ML SYR ONE (23:04)
[2021-12-27] MEDS ORDERED: ONDANSETRON 4 MG/2 ML VIAL ONE (23:04)
[2021-12-27 23:28] LABS: Absolute Lymphocytes (CBC) 1.7 K/uL (0.7-4.9); Hematocrit 44.2 % (39.6-49.0); Lymphocytes % 12.7 % (15.3-44.8); MPV 10.3 fL (7.6-11.3); RBC Red Blood Cell Count 5.01 M/uL (4.33-5.43)
[2021-12-27 23:37] LABS: BUN Blood Urea Nitrogen 23 mg/dL (7-18); Bicarbonate 25 mmol/L (21-32); Glucose Level 144 mg/dL (74-106); Potassium 3.9 mmol/L (3.5-5.1); Sodium Level 136 mmol/L (136-145)
[2021-12-27 23:38] LABS: ALT/SGPT 43 U/L (12-78); AST/SGOT 36 U/L (15-37); Albumin 3.4 g/dL (3.4-5.0); Alkaline Phosphatase 96 U/L (45-117); Bilirubin Total 1.4 mg/dL (0.2-1.0); Lipase 283 U/L (73-393); Protein, Total 7.6 g/dL (6.4-8.2)
[2021-12-27 23:56] LABS: SARS-COV-2 RT PCR NEGATIVE (NEGATIVE)
[2021-12-28] MEDS ORDERED: METOPROLOL TARTRATE 5 MG/5 ML INJ IV ONE (01:01)
--- NOTE | 2021-12-28 01:37 | EDPHYS ---
Physician Documentation [facility] Name: Beto Luevano Age: 56 yrs Sex: Male : 1965 Arrival Date: 12/27/2021 Time: 21:44 Bed 19 Private MD: ED Physician James Toure HPI: 12/27 23:00 This 56 yrs old Male presents to ER via EMS with complaints of Abdominal Pain. jr8 23:00 The patient presents with abdominal pain in the upper abdomen. Onset: The jr8 symptoms/episode began/occurred acutely, today. The symptoms do not radiate. Associated signs and symptoms: Pertinent positives: nausea. The symptoms are described as stabbing. Modifying factors: The symptoms are alleviated by nothing, the symptoms are aggravated by nothing. Severity of pain: At its worst the pain was moderate in the emergency department the pain is unchanged. The patient has not experienced similar symptoms in the past. The patient has not recently seen a physician. Historical: - Allergies: 21:58 Ibuprofen; lp1 - PMHx: 21:58 Hypertension; Hernia Repair; ALS; Diabetes mellitus; lp1 - PSHx: 21:58 None; lp1 - Immunization history:: Adult Immunizations up to date. - Social history:: Smoking status: Patient denies any tobacco usage or history of. ROS: 23:00 Eyes: Negative for injury, pain, redness, and discharge, ENT: Negative for injury, jr8 pain, and discharge, Neck: Negative for injury, pain, and swelling, Cardiovascular: Negative for chest pain, palpitations, and edema, Respiratory: Negative for shortness of breath, cough, wheezing, and pleuritic chest pain, Back: Negative for injury and pain, MS/Extremity: Negative for injury and deformity, Skin: Negative for injury, rash, and discoloration, Neuro: Negative for headache, weakness, numbness, tingling, and seizure. 23:00 Abdomen/GI: Positive for abdominal pain, nausea, Negative for vomiting, diarrhea, constipation, abdominal distension, hematemesis, black/tarry stool, rectal pain, rectal bleeding, bowel incontinence, flatulence. Exam: 23:00 ENT: Nares patent. No nasal discharge, no septal abnormalities noted. Tympanic jr8 membranes are normal and external auditory canals are clear. Oropharynx with no redness, swelling, or masses, exudates, or evidence of obstruction, uvula midline. Mucous membranes moist. Neck: Trachea midline, no thyromegaly or masses palpated, and no cervical lymphadenopathy. Supple, full range of motion without nuchal rigidity, or vertebral point tenderness. No Meningismus. Cardiovascular: Regular rate and rhythm with a normal S1 and S2. No gallops, murmurs, or rubs. Normal PMI, no JVD. No pulse deficits. Respiratory: Lungs have equal breath sounds bilaterally, clear to auscultation and percussion. No rales, rhonchi or wheezes noted. No increased work of breathing, no retractions or nasal flaring. Back: No spinal tenderness. No costovertebral tenderness. Full range of motion. Skin: Warm, dry with normal turgor. Normal color with no rashes, no lesions, and no evidence of cellulitis. MS/ Extremity: Pulses equal, no cyanosis. Neurovascular intact. Full, normal range of motion. Neuro: Awake and alert, GCS 15, oriented to person, place, time, and situation. Cranial nerves II-XII grossly intact. Motor strength 4/5 in all extremities. Sensory grossly intact. 23:00 Eyes: Periorbital structures: appear normal, Pupils: equal, round, and reactive to light and accomodation, Extraocular movements: intact throughout, Conjunctiva: normal, Corneas: are normal, Sclera: icterus, is present. 23:00 Abdomen/GI: Inspection: abdomen appears normal, Bowel sounds: active, all quadrants, Palpation: soft, in all quadrants, mild abdominal tenderness, in the epigastric area, right upper quadrant and left upper quadrant, mass, is not appreciated, rebound tenderness, is not appreciated, voluntary guarding, is not appreciated, involuntary guarding, is not appreciated, no appreciated organomegaly, Indicators: McBurney's point is not tender, Armstrong's sign is positive, Liver: no appreciated palpable abnormalities. Vital Signs: 21:55 BP 160 / 108; Pulse 66; Resp 18; Temp 97.5(O); Pulse Ox 98% on R/A; Weight 72.57 kg lp1 (R); Pain 8/10; 23:00 BP 167 / 102 LA Supine (auto/reg); Pulse 98 MON; Resp 22 S; Pulse Ox 97% on R/A; Pain tk1 6/10; 23:30 BP 128 / 103 LA Supine (auto/reg); Pulse 122 MON; Resp 20; Pulse Ox 97% on R/A; Pain tk1 6/10; 12/28 00:00 Pain 0/10; tk1 00:30 BP 132 / 97 LA Supine (auto/); Pulse 105 MON; Resp 16 S; Pulse Ox 98% ; Pain 0/10; tk1 01:30 Pulse 92 MON; tk1 01:30 BP 148 / 103 LA Supine (auto/); Pulse 92 MON; Resp 16; Temp 98(O); Pulse Ox 99% on R/A; tk1 Pain 0/10; 02:30 BP 135 / 105 LA Supine (auto/reg); Pulse 82 MON; Resp 17 S; Pulse Ox 97% on R/A; Pain tk1 0/10; MDM: 12/27 21:50 Patient medically screened. 8 12/28 01:35 Data reviewed: vital signs, nurses notes, lab test result(s), radiologic studies, [facility] ultrasound. Data interpreted: Pulse oximetry: on room air is 97 %. Interpretation: normal. Counseling: I had a detailed discussion with the patient and/or guardian regarding: the historical points, exam findings, and any diagnostic results supporting the discharge/admit diagnosis, lab results, radiology results, the need for outpatient follow up, a general surgeon, to return to the emergency department if symptoms worsen or persist or if there are any questions or concerns that arise at home. Response to treatment: the patient's symptoms have resolved after treatment. ED course: Patient afebrile and hemodynamically stable. Patient has no pain at this time. Discussed with family and patient that he does have sludge in his gallbladder with gallstones. No pericholecystic fluid, no inflammation of the wall, no common bile duct dilation. Liver enzymes stable. Had a mild increase in white cell count which is nonspecific at this time. Recommended close follow-up with general surgery and will put him on antibiotics and pain medicine along with antiemetics. If he were to acutely worsen to come back for further evaluation. Patient family good with this at this time.. 12/27 22:17 Order name: CBC with Diff; Complete Time: 23:30 8 12/27 22:17 Order name: CMP; Complete Time: 23:51 8 03/23 22:17 Order name: Lipase; Complete Time: 23:51 jr8 12/27 22:17 Order name: Abdomen Limited US jr8 12/27 22:21 Order name: COVID-19/FLU A+B (Document "Date of Onset" if Symptomatic); Complete Time: mw2 00:03 12/27 22:17 Order name: IV Saline Lock; Complete Time: 23:10 jr8 12/27 22:17 Order name: Labs collected and sent; Complete Time: 23:10 jr8 Administered Medications: 12/27 23:09 Drug: Zofran (Ondansetron) 4 mg Route: IVP; Rate: 2 mg/min; Infused Over: 2 mins; Site: tk1 right forearm; 12/28 00:00 Follow up: Response: No adverse reaction tk1 12/27 23:09 Drug: morphine 4 mg Route: IVP; Rate: 2 mg/min; Infused Over: 2 mins; Site: right tk1 forearm; 12/28 00:00 Follow up: Pain 0/10 Adult; Response: Pain is decreased tk1 01:02 Drug: Metoprolol 5 mg Route: IVP; Site: right forearm; ab2 01:30 Follow up: Pulse 92 bpm Monitor; Response: Cardiac rhythm changed tk1 Disposition Summary: 12/28/21 01:36 Discharge Ordered Location: Home jr8 Problem: new jr8 Symptoms: have improved jr8 Condition: Stable jr8 Diagnosis - Other cholelithiasis without obstruction jr8 Followup: jr8 - With: Trey Ponce MD - When: 2 - 3 days - Reason: Recheck today's complaints, Continuance of care, Re-evaluation by your physician Discharge Instructions: - Discharge Summary Sheet jr8 - Cholelithiasis jr8 - Gallbladder Eating Plan jr8 Forms: - Medication Reconciliation Form jr8 - Thank You Letter jr8 - Antibiotic Education jr8 - Prescription Opioid Use jr8 - SBAR form cs9 Prescriptions: - Augmentin 875-125 mg Oral Tablet - take 1 tablet by ORAL route every 12 hours for 7 days; 14 tablet; Refills: 0, jr8 Product Selection Permitted - ondansetron 4 mg Oral tablet,disintegrating - place 1 tablet by TRANSLINGUAL route every 8 hours As needed; 12 tablet; jr8 Refills: 0, Product Selection Permitted - Tylenol-Codeine #3 300 mg-30 mg Oral - take 1 tablet by ORAL route every 6 hours As needed; 16 tablet; Refills: 0, jr8 Product Selection Permitted Addendum: 12/29/2021 05:33 Co-signature as Attending Physician, James Toure MD I agree with the assessment and c copeland plan of care. Signatures: Dispatcher [employer] James Santana MD MD cha Pena, Laura, RN RN lp1 Abhishek Hampton PA PA jr8 Lidya Haji tk1 Gt Issa2
--- NOTE | 2021-12-28 01:37 | ER ---
Nurse's Notes [facility] Name: Beto Luevano Age: 56 yrs Sex: Male : 1965 Arrival Date: 12/27/2021 Time: 21:44 Bed 19 Private MD: Diagnosis: Other cholelithiasis without obstruction Presentation: 12/27 21:55 Chief complaint: EMS states: Called for patient with sudden onset of upper abdominal lp1 pain about 1 hour after eating; Denies nausea, vomiting, diarrhea. Coronavirus screen: At this time, the client does not indicate any symptoms associated with coronavirus-19. Ebola Screen: No symptoms or risks identified at this time. Initial Sepsis Screen: Does the patient meet any 2 criteria? No. Patient's initial sepsis screen is negative. Does the patient have a suspected source of infection? No. Patient's initial sepsis screen is negative. Risk Assessment: Do you want to hurt yourself or someone else? Patient reports no desire to harm self or others. Onset of symptoms was December 27, 2021. 21:55 Method Of Arrival: EMS: [facility] lp1 21:55 Acuity: JUAN 3 lp1 Historical: - Allergies: 21:58 Ibuprofen; lp1 - PMHx: 21:58 Hypertension; Hernia Repair; ALS; Diabetes mellitus; lp1 - PSHx: 21:58 None; lp1 - Immunization history:: Adult Immunizations up to date. - Social history:: Smoking status: Patient denies any tobacco usage or history of. Screenin:30 Abuse screen: Denies threats or abuse. Denies injuries from another. Nutritional tk1 screening: No deficits noted. Tuberculosis screening: No symptoms or risk factors identified. Fall Risk No fall in past 12 months (0 pts). Secondary diagnosis (15 points) impaired mobility, IV access (20 points). Ambulatory Aid- None/Bed Rest/Nurse Assist (0 pts). Gait- Normal/Bed Rest/Wheelchair (0 pts) Mental Status- Oriented to own ability (0 pts). Total Odell Fall Scale indicates Low Risk Score (25-44 pts). Fall prevention measures have been instituted. Side Rails Up X 2 Placed close to Nursing Station Family Present and informed to notify staff if they need to leave bedside As available Patient and Family Educated on Fall Prevention Program and strategies. Assessment: 23:00 General: Appears comfortable, well groomed, well developed, well nourished, Behavior is tk1 calm, cooperative, appropriate for age. Pain: Complains of pain in abdomen and right upper quadrant Pain does not radiate. Pain currently is 6 out of 10 on a pain scale. Quality of pain is described as sharp, Pain began 1 day ago. Is intermittent. Neuro: Level of Consciousness is awake, alert, obeys commands, Oriented to person, place, time, situation, Rn Obgyn are weak bilaterally Paresis Gait is Patient has ALS by hx.. Speech is slurred, Facial symmetry appears normal. 23:00 Cardiovascular: Capillary refill < 3 seconds is brisk in bilateral fingers. tk1 Respiratory: Airway is patent Respiratory effort is even, unlabored, Respiratory pattern is regular, symmetrical, Breath sounds are diminished bilaterally. in right middle lobe, left lower lobe and right lower lobe. GI: Abdomen is flat, non-distended, Bowel sounds present X 4 quads. Abd is soft X 4 quads Reports upper abdominal pain. : No deficits noted. No signs and/or symptoms were reported regarding the genitourinary system. EENT: No deficits noted. No signs and/or symptoms were reported regarding the EENT system. Derm: No deficits noted. No signs and/or symptoms reported regarding the dermatologic system. 12/28 00:00 Reassessment: No changes from previously documented assessment. Patient and/or family tk1 updated on plan of care and expected duration. Pain level reassessed. Patient is alert, oriented x 3, equal unlabored respirations, skin warm/dry/pink. Pain: Denies pain. 01:00 Reassessment: Patient and/or family updated on plan of care and expected duration. Pain tk1 level reassessed. Patient denies pain at this time. 02:25 Reassessment: D/C per PA order. Discharge/Prescription instructions given to patient tk1 and . Verbalized understanding. [facility] notified of transport needs. left to go home and wait for patient. 02:46 Reassessment: Report given to [facility]. Patient loaded onto stretcher for tk1 transport home. Vital Signs: 12/27 21:55 BP 160 / 108; Pulse 66; Resp 18; Temp 97.5(O); Pulse Ox 98% on R/A; Weight 72.57 kg lp1 (R); Pain 8/10; 23:00 BP 167 / 102 LA Supine (auto/reg); Pulse 98 MON; Resp 22 S; Pulse Ox 97% on R/A; Pain tk1 6/10; 23:30 BP 128 / 103 LA Supine (auto/reg); Pulse 122 MON; Resp 20; Pulse Ox 97% on R/A; Pain tk1 6; 12/28 00:00 Pain 0/10; tk1 00:30 BP 132 / 97 LA Supine (auto/); Pulse 105 MON; Resp 16 S; Pulse Ox 98% ; Pain 0/10; tk1 01:30 Pulse 92 MON; tk1 01:30 BP 148 / 103 LA Supine (auto/); Pulse 92 MON; Resp 16; Temp 98(O); Pulse Ox 99% on R/A; tk1 Pain 0/10; 02:30 BP 135 / 105 LA Supine (auto/reg); Pulse 82 MON; Resp 17 S; Pulse Ox 97% on R/A; Pain tk1 0/10; ED Course: 12/27 21:44 Patient arrived in ED. mw2 21:50 Abhishek Hampton PA is PHCP. jr8 21:50 James Toure MD is Attending Physician. jr8 21:57 Lidya Haji is Primary Nurse. tk1 21:58 Triage completed. lp1 21:58 Arm band placed on. lp1 21:59 Patient has correct armband on for positive identification. Bed in low position. Call lp1 light in reach. monitor car operator on. Pulse ox on. NIBP on. 22:45 Abdomen Limited US In Process Unspecified. EDMS 23:00 Inserted saline lock: 20 gauge in right forearm, using aseptic technique. Blood tk1 collected. 23:10 CBC with Diff Sent. tk1 23:10 CMP Sent. tk1 23:10 Lipase Sent. tk1 23:10 COVID-19/FLU A+B (Document "Date of Onset" if Symptomatic) Sent. tk1 23:30 No provider procedures requiring assistance completed. tk1 12/28 01:36 Trey Ponce MD is Referral Physician. jr8 02:25 IV discontinued, intact, bleeding controlled, No redness/swelling at site. Pressure tk1 dressing applied. Administered Medications: 12/27 23:09 Drug: Zofran (Ondansetron) 4 mg Route: IVP; Rate: 2 mg/min; Infused Over: 2 mins; Site: tk1 right forearm; 12/28 00:00 Follow up: Response: No adverse reaction tk1 12/27 23:09 Drug: morphine 4 mg Route: IVP; Rate: 2 mg/min; Infused Over: 2 mins; Site: right tk1 forearm; 12/28 00:00 Follow up: Pain 0/10 Adult; Response: Pain is decreased tk1 01:02 Drug: Metoprolol 5 mg Route: IVP; Site: right forearm; ab2 01:30 Follow up: Pulse 92 bpm Monitor; Response: Cardiac rhythm changed tk1 Outcome: 01:36 Discharge ordered by MD. bell 02:46 Patient left the ED. tk1 Signatures: Dispatcher [employer] EDSushila Tillman RN RN lp1 Abhishek Hampton PA PA jr8 Mahi Benson mw2 Lidya Haji tk1 Gt Issa ab2 Corrections: (The following items were deleted from the chart) 01:03 01:02 Metoprolol 5 mg IVP in right hand ab2 ab2
[2021-12-28 04:00] VITALS: TEMP 98
[2021-12-28 04:01] VITALS: BP 135/105; O2SAT 97
--- NOTE | 2021-12-28 16:00 | RAD REPORT ---
.,EXAM DESCRIPTION: US - Abdomen Exam Limited - 12/28/2021 12:17 am CLINICAL HISTORY: Abdominal pain. COMPARISON: None. TECHNIQUE: Transabdominal high resolution grayscale sonographic evaluation of the right upper abdome n performed with color flow. FINDINGS: Gallbladder is visualized with layering shadowing and nonshadowing debris compatible with stones and sludge. Gallbladder is distended to greater than 11 cm compatible with hydrops. Gallbladde r wall is 2.5 mm. No pericholecystic fluid. Common bile duct is 3 mm. Negative sonographic Armstrong sig n. Hepatopedal flow is present in the portal vein. Moderate increased echotexture of the imaged right lo be of liver. No ascites. IMPRESSION: 1. Cholelithiasis and sludge with dyskinesia. No evidence of cholecystitis or biliary di latation. 2. Fatty liver. Electronically signed by: Luna Rosales DO 12/27/2021 11:57 PM CDT Due to temporary technical issues with the PACS/Fluency reporting system, reports are being signed by the in house radiologists without review as a courtesy to insure prompt reporting. The interpreting radiologist is fully responsible for the content of the report.
== END 2021-12-28 02:46 | disposition home or self-care (01) ==
LOC: ER 21:32
DX: K80.80 Other cholelithiasis without obstruction (principal); R11.0 Nausea; I10 Essential (primary) hypertension; E11.9 Type 2 diabetes mellitus without complications; Z20.822 Contact with and (suspected) exposure to COVID-19; Z88.6 Allergy status to analgesic agent
CPT/HCPCS: 85025; 36415; 83690; 80053; 0240U; 76705; 96375; 96374; 99284; J2405

== ENCOUNTER 2022-08-03 20:41 | Inpatient (IN) | payer OTHER ==
--- OUTSIDE RECORDS SUMMARY | 2022-08-03 20:45 | XMS REPORT | Continuity of Care Document ---
:1965 Author Organization [facility] t Address [address] [place] [address] Care Team Providers Name Role Phone Orlin VO, Sammy Rose Primary Care Physician [phone] Sammy Ordaz Attending Clinician Unavailable Delfino Mcrae Attending Clinician NIXON QUEZADA Attending Clinician Unavailable NELLI MORRISSEY Attending Clinician Unavailable Problems Condition Condition Condition Status Onset Resolution Last Treating Co mments Source Name Details Category Date Date Treatment Clinician Date Spasticity Spasticity Disease Active 2019-0 M ethodi 10-29 00:00: Hospita 00 l Risk for Risk for Disease Active Metho di falls falls 10-29 00:00: Hospita 00 l Muscle Muscle Disease Active 2018-0 Methodi cramping cramping 05-07 00:00: Hospita 00 l Muscle Muscle Disease Active Methodi weakness weakness st Hospita l Neuropathy Neuropathy Problem Active C ommon Spirit - [facility] 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, 1.5, 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 [facility] Essential Essential Problem Active Com mon hypertensi hypertensi Sp mendel on on - [facility] Pure Pure Problem Active Common hyperchole hyperchole Sp mendel sterolemia sterolemia - [facility] History of History of Problem Active C ommon alcoholism alcoholism Sp mendel - [facility] Atrial Atrial Diagnosis Active Common fibrillati fibrillati Sp mendel on, on, - [facility] unspecifie unspecifie [facility] d type d [facility] Acute gout Acute gout Problem Active C ommon of right of right Spirit foot, foot, - [facility] unspecifie unspecifie St d cause d [facility] 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) [facility] Atrial Atrial Problem Active 2022-07-20 Twan shandra fibrillati fibrillati 23:13:29 l on on Rad (disorder) (disorder) Active Problem 07/20/2022 [facility] Diabetes Diabetes Problem Active 2022-07-20 Memoria mellitus mellitus 23:13:29 l (disorder) (disorder) He rmann Active Problem 07/20/2022 [facility] Hyperlipid Hyperlipi Problem Active 2022-07-20 Memoria emia demia 23:13:29 l (disorder) (disorder) He rmann Active Problem 07/20/2022 [facility] Hypertensi Hypertens Problem Active 2022-07-20 Memoria ve fredy 23:13:29 l disorder, disorder, Herm blanca systemic systemic arterial arterial (disorder) (disorder) Active Problem 07/20/2022 [facility] Muscle Muscle Problem Active 2022-07-20 Twan shandra atrophy atrophy 23:13:29 l (disorder) (disorder) He rmann Active Problem 07/20/2022 [facility] 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 Herm blanca (disorder) (disorder) Active Problem 07/20/2022 [facility] Dysphagia Dysphagia Problem Active 2022-07-20 Memoria (disorder) (disorder) 23:13:29 l Active [facility] Problem 07/20/2022 [facility] Dyspnea Dyspnea Problem Active 2022-07-20 Me moria (finding) (finding) 23:13:29 l Active [facility] Problem 07/20/2022 [facility] Cervical Cervical Problem Resolve 2022 Memoria myelopathy myelopathy d 22:29:20 l (disorder) (disorder) He rmann Resolved Problem 2022 [facility] Allergies, Adverse Reactions, Alerts Allergy Allergy Status Severity Reaction(s) Onset Inactive Treating Comm ents Source Name Type Date Date Clinician Ibuprofe Propensi Active Hives Method i n ty to 730 st adverse 00:00: Hospita reaction 00 l s to drug Ibuprofe Adverse Active Info Not Commo n n Reaction Available Spiri t - [facility] ibuprofe ibuprofe Active Elizabethori a n n l [facility] Family History Family Member Diagnosis Comments Start Date Stop Date Source Natural mother Hypertension [facility] Natural father Diabetes [facility] Social History Social Habit Start Date Stop Date Quantity Comments Source History of Current smoker [facility] tobacco use [facility] Alcohol intake 2020-09-08 2020-09-08 2.86 /d [facility] 00:00:00 00:00:00 [facility] Social History 2019-07-16 2019-07-16 Sarah israel 18:30:27 18:30:27 Tobacco use and 2019-05-05 2019-05-05 Smokeless tobacco [facility] exposure 00:00:00 00:00:00 non-user Hospital Sex Ass[birth year] At [birth year] [facility] 00:00:00 00:00:00 [facility] Smoking Status Start Date Stop Date Source Tobacco smoking status [facility] Rad Ex-smoker 2019-05-05 00:00:00 2019-05-05 00:00:00 [facility] Medications Ordered Filled Start Stop Current Ordering Indication Dosage Frequency Signature Comments Components Source Medication Medication Date Date Medication? Clinician (SIG) Name Name gabapentin Yes = 1 cap, Mem oria 300 mg oral 3-01 PO, l capsule 23:26: Bedtime, # Herm blanca 00 30 unknown unit, 6 Refill(s), [facility]acy: [id number], 162.56, cm, 01/19/21 14:28:00 CDT, Height, 76.364, kg, 01/19/21 14:28:00 CDT, Weight gabapentin Yes 300 mg = 1 M emoria 300 MG Oral 4-15 cap, PO, l Capsule 19:55: Bedtime, # Herm blanca 00 30 cap, 6 Refill(s), Pharmacy: [facility] #[id number], 162.56, cm, 01/19/21 14:28:00 CDT, Height, 76.364, kg, 01/19/21 14:28:00 CDT, Weight gabapentin 2020- Yes 300 mg = 1 M emoria 300 MG Oral 4-15 cap, PO, l Capsule 19:55: Bedtime, # Herm blanca 00 30 cap, 6 Refill(s), Pharmacy: [facility] #[id number], 162.56, cm, 01/19/21 14:28:00 CDT, Height, 76.364, kg, 01/19/21 14:28:00 CDT, Weight gabapentin No PO, 0 Memori a 4-15 Refill(s) l 19:54: [facility] 00 gabapentin 0 No PO, 0 Memori a 4-15 Refill(s) l 19:54: [facility] 00 aspirin 2019-10 Yes 81mg QD Take 81 mg Meth elie (ECOTRIN) 2-[address] 81 MG 11:56: daily. Hospita enteric 15 l coated tablet docosahexan 2019-10 Yes Take by Met hodi oic 2-[address] acid/epa 11:56: Hospita (FISH OIL 15 l ORAL) multivitami 2019-10 Yes 1{tbl} QD Take 1 Me thodi n 2-[address] (THERAGRAN) 11:56: mouth Hospi ta tablet 15 daily. l lisinopril 2019-10 Yes 20mg QD Take 20 mg M ethodi (PRINIVIL) 2-[address] 20 mg 11:56: daily. Hospita tablet 15 l metFORMIN 2019-10 Yes 1000mg QD Take 1,000 Methodi (GLUCOPHAGE 2-[address] ) 1,000 mg 11:56: mouth Hospit a tablet 15 daily with l breakfast. rivaroxaban 2019-10 Yes 20mg QD Take 20 mg Methodi (XARELTO) 2-[address] 20 mg 11:56: daily. Hospita tablet 15 l CARVEDILOL 2019-10 Yes Take by Meth elie ORAL 2-[address] 11:56: Hospita 15 l gemfibrozil 2019-10 Yes 600mg Q.5D Take 600 M ethodi (LOPID) 600 2-[address] MG tablet 11:56: mouth 2 Hospi ta 15 (two) l times a day before meals. ascorbic 2020- Yes 1000mg Take 1,000 M ethodi acid 2-[address] (VITAMIN C 11:56: mouth. Hospi ta ORAL) 15 l cholecalcif 2019-10 Yes 1000U QD Take 1,000 Methodi bayron, 2-[address] vitamin D3, 11:56: mouth Hospi ta (VITAMIN 15 daily. l D3) 1,000 unit tablet BETA 2019-10 Yes 15mg Take 15 mg Methodi CAROTENE 2-[address] ORAL 11:56: Hospita 15 l aspirin 2019-10 Yes 81mg QD Take 81 mg Meth elie (ECOTRIN) 2-[address] 81 MG 11:56: daily. Hospita enteric 15 l coated tablet docosahexan 2019-10 Yes Take by Met hodi oic 2-[address] acid/epa 11:56: Hospita (FISH OIL 15 l ORAL) multivitami 2019-10 Yes 1{tbl} QD Take 1 Me thodi n 2-[address] (THERAGRAN) 11:56: mouth Hospi ta tablet 15 daily. l lisinopril 2019-10 Yes 20mg QD Take 20 mg M ethodi (PRINIVIL) 2-[address] 20 mg 11:56: daily. Hospita tablet 15 l metFORMIN 2019-10 Yes 1000mg QD Take 1,000 Methodi (GLUCOPHAGE 2-[address] ) 1,000 mg 11:56: mouth Hospit a tablet 15 daily with l breakfast. rivaroxaban 2019-10 Yes 20mg QD Take 20 mg Methodi (XARELTO) 2-[address] 20 mg 11:56: daily. Hospita tablet 15 l CARVEDILOL 2019-10 Yes Take by Meth elie ORAL 2-[address] 11:56: Hospita 15 l gemfibrozil 2019-10 Yes 600mg Q.5D Take 600 M ethodi (LOPID) 600 2-[address] MG tablet 11:56: mouth 2 Hospi ta 15 (two) l times a day before meals. ascorbic 2019-10 Yes 1000mg Take 1,000 M ethodi acid 2-[address] (VITAMIN C 11:56: mouth. Hospi ta ORAL) 15 l cholecalcif 2019-10 Yes 1000U QD Take 1,000 Methodi bayron, 2-[address] vitamin D3, 11:56: mouth Hospi ta (VITAMIN 15 daily. l D3) 1,000 unit tablet BETA 2019-10 Yes 15mg Take 15 mg Methodi CAROTENE 2-[address] ORAL 11:56: Hospita 15 l baclofen 2019-10 Yes Take one Metho di (LIORESAL) 2-[address] 10 MG 00:00: night and Hospita tablet 00 one tablet l in the morning. If you see benefits, you may increase to three tables a day. baclofen 2019- Yes Take one Metho di (LIORESAL) 2-[address] 10 MG 00:00: night and Hospita tablet 00 one tablet l in the morning. If you see benefits, you may increase to three tables a day. riluzole 50 2020-0 Yes 50 mg = 1 M emoria mg oral 5-19 tab, PO, l tablet 17:03: Q12H, # 60 Florecita nn 00 tab, 0 Refill(s) riluzole 50 2019-0 Yes 50 mg = 1 M emoria mg oral 5-19 tab, PO, l tablet 17:03: Q12H, # 60 Florecita nn 00 tab, 0 Refill(s) Janumet XR Janumet XR Yes Ailyn 2 tablets Common 211 Guo with Spirit 00:00: evening - [facility] 00 meal [facility] folic acid 2018-10 Yes Take by Meth elie 0.8 mg 2-[address] capsule 07:47: Hospita 28 l folic acid 2018-10 Yes Take by Meth elie 0.8 mg 2-[address] capsule 07:47: Hospita 28 l Carvedilol Carvedilol 2018-10 Yes Ailyn with food Common 0-24 Guo Spirit 00:00: - [facility] Riluzole 2018-10 Yes 50 mg, PO, Mem oria 0-10 Q12H, X 30 l 19:35: day, 0 [facility] 00 Refill(s) Riluzole 2018-10 Yes 50 mg, PO, Mem oria 0-10 Q12H, X 30 l 19:35: day, 0 Rad 00 Refill(s) Jardiance Jardiance 2018- Yes Ailyn 1 tablet Common 8-15 Guo Spirit 00:00: - [facility] 00 [facility] Lisinopril Lisinopril 2018- Yes Ailyn 1 tablet Common 8-15 Guo Spirit 00:00: - [facility] Metformin 2019- Yes 1,000 mg, Mem oria 4-24 PO, Daily, l 20:11: 0 [facility] 00 Refill(s) Lisinopril 2019-0 Yes 30 mg, PO, M emoria 4-24 Daily, 0 l 20:11: Refill(s) Xarelto 2019-0 Yes 20 mg, PO, Twan shandra 4-24 Daily, 0 l 20:11: Refill(s) Metformin 2019-0 Yes 1,000 mg, Mem oria 4-24 PO, Daily, l 20:11: 0 Refill(s) Lisinopril 2018-0 Yes 30 mg, PO, M emoria 4-24 Daily, 0 l 20:11: Refill(s) Gemfibrozil 2019-0 Yes 600 mg, Mem oria 4-24 PO, BID, 0 l 20:11: Refill(s) Gemfibrozil 2018-0 Yes 600 mg, Mem oria 4-24 PO, BID, 0 l 20:11: Refill(s) carvedilol 2018-0 Yes PO, 0 Memori a 4-24 Refill(s) l 20:11: lisinopril 2018-0 Yes 30 mg, PO, M emoria 4-24 Daily, 0 l 20:11: Refill(s) metFORMIN 2018-0 Yes 1,000 mg, Mem oria 4-24 PO, Daily, l 20:11: 0 Refill(s) Xarelto 2018-0 Yes 20 mg, PO, Twan shandra 4-24 Daily, 0 l 20:11: Refill(s) carvedilol 2019-0 Yes PO, 0 Memori a 4-24 Refill(s) l 20:11: gemfibrozil 2019-0 Yes 600 mg, Mem oria 4-24 PO, BID, 0 l 20:11: Refill(s) carvedilol 2019-0 Yes PO, 0 Memori a 4-24 Refill(s) l 20:11: Xarelto 2019-0 Yes 20 mg, PO, Twan shandra 4-24 Daily, 0 l 20:11: Refill(s) Xarelto Xarelto 2018-0 Yes Ailyn 1 tablet C ommon 3-04 Guo with food Spirit 00:00: - [facility] 00 [facility] Aspir-81 Aspir-81 Yes Ailyn 1 tablet C ommon Guo Spirit - [facility] Metformin Metformin Yes Ailyn 1 tablet Common HCl HCl Guo with meals Spirit - [facility] Gemfibrozil Gemfibrozil Yes Ailyn TAKE 1 Common Guo TABLET Spirit TWICE A - [facility] DAY [facility] Vital Signs Vital Name Observation Time Observation Value Comments Source Systolic (mm Hg) 2021-11-08 17:31:00 Twan rial Rad Diastolic (mm Hg) 2021-11-08 17:31:00 Mem orial Rad Heart Rate 2021-11-08 17:31:00 [facility] Respitory Rate 2021-11-08 17:31:00 Memori al [facility] Systolic (mm Hg) 2021-01-19 19:08:00 Twan rial Rad Diastolic (mm Hg) 2021-01-19 19:08:00 Mem orial [facility] Heart Rate 2021-01-19 19:08:00 Memorial Rad Respitory Rate 2021-01-19 19:08:00 Memori al Rad Height 2021-01-19 19:08:00 162.56 cm [facility] Weight 2021-01-19 19:08:00 [facility] BMI Calculated 2021-01-19 19:08:00 Memori al Rad Systolic (mm Hg) 2020-07-19 18:14:00 Twan rial [facility] Diastolic (mm Hg) 2020-07-19 18:14:00 Mem orial [facility] Respitory Rate 2020-07-19 18:14:00 Memori al [facility] Height 2020-07-19 18:14:00 162.56 cm Memorial Rad Weight 2020-07-19 18:14:00 [facility] BMI Calculated 2020-07-19 18:14:00 Memori al Rad Heart Rate 2020-07-19 18:14:00 [facility] Systolic (mm Hg) 2020-02-23 16:47:00 Twan rial [facility] Diastolic (mm Hg) 2020-02-23 16:47:00 Mem orial [facility] Heart Rate 2020-02-23 16:47:00 [facility] Respitory Rate 2020-02-23 16:47:00 Memori al [facility] Temperature Oral (F) 2020-02-23 16:47:00 96.0 F [facility] Rad Height 2020-02-23 16:47:00 162.56 cm [facility] Weight 2020-02-23 16:47:00 [facility] BMI Calculated 2020-02-23 16:47:00 Memori al [facility] Systolic (mm Hg) 2019-07-16 18:29:00 Twan rial [facility] Diastolic (mm Hg) 2019-07-16 18:29:00 Mem orial [facility] Heart Rate 2019-07-16 18:29:00 [facility] Respitory Rate 2019-07-16 18:29:00 Memori al [facility] Height 2019-07-16 18:29:00 165.1 cm [facility] Weight 2019-07-16 18:29:00 [facility] Rad BMI Calculated 2019-07-16 18:29:00 Memori al [facility] Weight 2019-04-16 16:37:00 [facility] BMI Calculated 2019-04-16 16:37:00 Memori al [facility] Height 2019-04-16 16:37:00 165.1 cm Memorial Rad Heart Rate 2019-04-16 16:37:00 [facility] Rad Respitory Rate 2019-04-16 16:37:00 Memori al Rad Systolic (mm Hg) 2019-04-16 16:37:00 Twan rial [facility] Diastolic (mm Hg) 2019-04-16 16:37:00 Mem orial [facility] BMI Calculated 2019-03-04 18:57:00 Memori al [facility] Weight 2019-03-04 18:57:00 [facility] Height 2019-03-04 18:57:00 162.56 cm [facility] Heart Rate 2019-03-04 18:57:00 [facility] Rad Respitory Rate 2019-03-04 18:57:00 Memori al Rad Systolic (mm Hg) 2019-03-04 18:57:00 Twan rial Rad Diastolic (mm Hg) 2019-03-04 18:57:00 Mem orial [facility] Weight 2019-01-28 20:06:00 [facility] BMI Calculated 2019-01-28 20:06:00 Memori al Rad Height 2019-01-28 20:06:00 165.1 cm [facility] Rad Respitory Rate 2019-01-28 20:06:00 Jessica al Rad Heart Rate 2019-01-28 20:06:00 [facility] Systolic (mm Hg) 2019-01-28 20:06:00 Twan blas Rad Diastolic (mm Hg) 2019-01-28 20:06:00 Mem orial [facility] Procedures This patient has no known procedures. Plan of Care Planned Activity Planned Date Details Comments Source Future Scheduled 2022-06-08 HEPATITIS B VACCINES Met [facility] Test 07:13:12 (1 of 3 - 3-dose series) [code = HEPATITIS B VACCINES (1 of 3 - 3-dose series)] Future Scheduled 2022-06-08 COVID-19 VACCINE (#1) [facility] Test 07:13:12 [code = COVID-19 VACCINE (#1)] Future Scheduled 2022-06-08 Hepatitis C screening [facility] Test 07:13:12 (procedure) [code = 554828182] Future Scheduled 2022-06-08 COLONOSCOPY SCREENING [facility] Test 07:13:12 [code = COLONOSCOPY SCREENING] Future Scheduled 2022-06-08 SHINGLES VACCINES (1 Met [facility] Test 07:13:12 of 2) [code = SHINGLES VACCINES (1 of 2)] Future Scheduled 2022-06-08 INFLUENZA VACCINE Method [facility] Test 07:13:12 [code = INFLUENZA VACCINE] Future Scheduled 2022-06-02 HEPATITIS B VACCINES Met [facility] Test 09:02:10 (1 of 3 - 3-dose series) [code = HEPATITIS B VACCINES (1 of 3 - 3-dose series)] Future Scheduled 2022-06-02 COVID-19 VACCINE (#1) [facility] Test 09:02:10 [code = COVID-19 VACCINE (#1)] Future Scheduled 2022-06-02 Hepatitis C screening [facility] Test 09:02:10 (procedure) [code = [id number]] Future Scheduled 2022-06-02 COLONOSCOPY SCREENING [facility] Test 09:02:10 [code = COLONOSCOPY SCREENING] Future Scheduled 2022-06-02 SHINGLES VACCINES (1 Met [facility] Test 09:02:10 of 2) [code = SHINGLES VACCINES (1 of 2)] Future Scheduled 2022-06-02 INFLUENZA VACCINE Method [facility] Test 09:02:10 [code = INFLUENZA VACCINE] Encounters Start End Encounter Admission Attending Care Care Encounter Source Date/Time Date/Time Type Type Clinicians Facility Department ID 2021-11-01 Outpatient SHERRI Ordaz [facility] [id number] Common 11:06:24 Sammy [id number] [facility] 2022-07-18 2022-07-18 Ambulatory nullFlavo MNA [id number] Memoria 18:30:00 18:30:00 Pre-Reg r Neurology 18 l Danyelle Leroy 2022-07-18 2022-07-18 Outpatient IE IE [id number] Memoria 13:30:00 13:30:00 18 edel Leroy 2022-07-18 2022-07-18 Outpatient IE NIKO [id number] Memoria 13:30:00 13:30:00 18 edel Leroy 2022-07-18 2022-07-18 [id number] 13:30:00 13:30:00 Delfino 18 Con 2022-05-15 2022-05-15 Ambulatory nullFlavo MNA [id number] Memoria 16:15:00 16:15:00 Pre-Reg r Neurology 15 l Danyelle Leroy 2022-05-15 2022-05-15 Ambulatory nullFlavo MNA [id number] Memoria 16:15:00 16:15:00 Pre-Reg r Neurology 15 l Danyelle Leroy 2022-05-15 2022-05-15 Outpatient IE [id number] Memoria 11:15:00 11:15:00 15 edel Leroy 2022-05-15 2022-05-15 [id number] 11:15:00 11:15:00 Delfino 15 Con 2022-04-05 2022-04-06 Outpatient nullFlavo MNA [id number] Memoria 13:45:00 04:59:59 r Neurology 17 l Danyelle Leroy 2022-04-05 2022-04-06 Outpatient nullFlavo MNA [id number] Memoria 13:45:00 04:59:59 r Neurology 17 l Danyelle Leroy 2022-04-05 2022-04-05 Outpatient [facility] [id number] 08:45:00 23:59:59 Delfino 17 Con 2022-04-05 2022-04-05 Outpatient MHIE IE [id number] Memoria 08:45:00 08:45:00 17 edel Leroy 2022-03-09 2022-03-10 Outpatient nullFlavo MNA [id number] Memoria 18:15:00 04:59:59 r Neurology 16 l Danyelle Leroy 2022-03-09 2022-03-10 Outpatient nullFlavo MNA [id number] Memoria 18:15:00 04:59:59 r Neurology 16 l Danyelle Leroy 2022-03-09 2022-03-09 Outpatient Clementina [facility] [id number] 13:15:00 23:59:59 Delfino 16 Con 2022-03-09 2022-03-09 Outpatient IE [id number] Memoria 13:15:00 13:15:00 16 edel Leroy 2021-11-08 2021-11-09 Outpatient nullFlavo MNA [id number] Memoria 17:30:00 05:59:59 r Neurology 14 l Danyelle Leroy 2021-11-08 2021-11-09 Outpatient nullFlavo MNA [id number] Memoria 17:30:00 05:59:59 r Neurology 14 edel Leroy 2021-11-08 2021-11-08 [facility] [id number] 11:30:00 23:59:59 Delfino 14 Con 2021-11-08 2021-11-08 Outpatient MHIE IE [id number] Memoria 11:30:00 11:30:00 14 edel Leroy 2021-07-21 2021-07-21 Ambulatory nullFlavo MNA [id number] Memoria 18:30:00 18:30:00 Pre-Reg r Neurology 13 l Danyelle Leroy 2021-07-21 2021-07-21 Ambulatory nullFlavo MNA [id number] Memoria 18:30:00 18:30:00 Pre-Reg r Neurology 13 l Danyelle Leroy 2021-07-21 2021-07-21 Outpatient MHIE IE [id number] Memoria 13:30:00 13:30:00 13 edel Leroy 2021-07-21 2021-07-21 [facility] [id number] 13:30:00 13:30:00 Delfino 13 Con 2021-01-25 2021-01-27 Outside nullFlavo MNA [id number] Memoria 15:19:03 04:59:59 Medical r Neurology 00 l Records Danyelle Leroy 2021-01-25 2021-01-27 Outside nullFlavo MNA [id number] Memoria 15:19:03 04:59:59 Medical r Neurology 00 l Records Danyelle Leroy 2021-01-25 2021-01-26 [facility] [id number] 10:19:03 23:59:59 00 2021-01-19 2021-01-20 Outpatient nullFlavo MNA [id number] Memoria 18:45:00 04:59:59 r Neurology 12 l Danyelle Leroy 2021-01-19 2021-01-20 Outpatient nullFlavo MNA [id number] Memoria 18:45:00 04:59:59 r Neurology 12 l Danyelle Leroy 2021-01-19 2021-01-19 [facility] [id number] 13:45:00 23:59:59 Delfino 12 Con 2021-01-19 2021-01-19 Outpatient MHIE IE [id number] Memoria 13:45:00 13:45:00 12 edel Leroy 2021-01-06 2021-01-06 Ambulatory nullFlavo MNA [id number] Memoria 18:00:00 18:00:00 Pre-Reg r Neurology 11 l Danyelle Leroy 2021-01-06 2021-01-06 Ambulatory nullFlavo MNA [id number] Memoria 18:00:00 18:00:00 Pre-Reg r Neurology 11 l Danyelle Leroy 2021-01-06 2021-01-06 Outpatient MHIE IE [id number] Memoria 13:00:00 13:00:00 11 l [facility] 2021-01-06 2021-01-06 Outpatient NORMA McraeSCHER MHMISCHER [id number] 13:00:00 13:00:00 Delfino 11 Con 2020-09-08 2020-09-08 Outpatient PILAR [facility] [id number] [place] 00:00:00 00:00:00 NIXON [address] 2020-09-08 2020-09-08 Outpatient PILAR [facility] [id number] [place] 00:00:00 00:00:00 NIXON [address] 2020-08-25 2020-08-25 Ambulatory nullFlavo MNA [id number] Memoria 17:00:00 17:00:00 Pre-Reg r Neurology 08 l Gaston Rad 2020-08-25 2020-08-25 Ambulatory nullFlavo MNA [id number] Memoria 17:00:00 17:00:00 Pre-Reg r Neurology 09 l Gaston Rad 2020-08-25 2020-08-25 Ambulatory nullFlavo MNA [id number] Memoria 17:00:00 17:00:00 Pre-Reg r Neurology 08 l [facility]aston Rad 2020-08-25 2020-08-25 Ambulatory nullFlavo MNA [id number] Memoria 17:00:00 17:00:00 Pre-Reg r Neurology 09 l Gaston [facility] 2020-08-25 2020-08-25 Outpatient MHIE MHIE [id number] Memoria 11:00:00 11:00:00 08 l [facility] 2020-08-25 2020-08-25 Outpatient MHIE MHIE [id number] Memoria 11:00:00 11:00:00 09 l Rad 2020-08-25 2020-08-25 Outpatient NORMA McraeSCHER MHMISCHER [id number] 11:00:00 11:00:00 Delfino 08 Con 2020-08-25 2020-08-25 Outpatient FRANCIS McraeMISCHER [facility]CHER [id number] 11:00:00 11:00:00 Delfino 09 Con 2020-07-19 2020-07-20 Outpatient nullFlavo MNA [id number] Memoria 18:00:00 04:59:59 r Neurology 10 l Gaston [facility] 2020-07-19 2020-07-20 Outpatient nullFlavo MNA [id number] Memoria 18:00:00 04:59:59 r Neurology 10 l Danyelle Shelbyann 2020-07-19 2020-07-19 Outpatient [facility] [id number] 13:00:00 23:59:59 Delfino 10 Con 2020-07-19 2020-07-19 Outpatient MHIE MHIE [id number] Memoria 13:00:00 13:00:00 10 l Rad 2020-02-23 2020-02-24 Outpatient nullFlavo MNA [id number] Memoria 16:45:00 04:59:59 r Neurology 07 l Danyelle Shelbyann 2020-02-23 2020-02-24 Outpatient nullFlavo MNA [id number] Memoria 16:45:00 04:59:59 r Neurology 07 l Danyelle [facility] 2020-02-23 2020-02-23 [facility] [id number] 11:45:00 23:59:59 Delfino 07 Con 2020-02-23 2020-02-23 Outpatient MHIE MHIE [id number] Memoria 11:45:00 11:45:00 07 l Rad 2020-02-19 2020-02-19 Outpatient [facility] [id number] Common 09:20:00 09:20:00 [facility] 2020-02-18 2020-02-18 Outpatient [facility] [id number] Common 08:38:00 08:38:00 [facility] 2019-11-17 2019-11-17 Ambulatory nullFlavo MNA [id number] Memoria 19:15:00 19:15:00 Pre-Reg r Neurology 06 l Gastonjabier Shelbyann 2019-11-17 2019-11-17 Ambulatory nullFlavo MNA [id number] Memoria 19:15:00 19:15:00 Pre-Reg r Neurology 06 l Gaston Rad 2019-11-17 2019-11-17 Outpatient [facility] [id number] Common 15:20:00 15:20:00 [facility] 2019-11-17 2019-11-17 Outpatient MHIE MHIE [id number] Memoria 13:15:00 13:15:00 06 edel Leroy 2019-11-17 2019-11-17 Outpatient FRANCIS McraeALESSANDRONOLAN GREENSCHER [id number] 13:15:00 13:15:00 Delfino Christa Andujar 2019-07-30 2019-07-30 [facility] [id number] Common 09:45:00 09:45:00 [facility] 2019-07-16 2019-07-17 Outpatient nullFlavo MNA [id number] Memoria 18:45:00 04:59:59 r Neurology 05 edel Shelbyann 2019-07-16 2019-07-17 Outpatient nullFlavo MNA [id number] Memoria 18:45:00 04:59:59 r Neurology 05 edel Bassett Rad 2019-07-16 2019-07-16 Outpatient SHARDA Mcrae MISCHER [id number] 13:45:00 23:59:59 Delfino Dallin Andujar 2019-07-16 2019-07-16 Ambulatory nullFlavo MNA [id number] Memoria 16:30:00 16:30:00 Pre-Reg r Neurology 04 l Danyelle Shelbyann 2019-07-16 2019-07-16 Ambulatory nullFlavo MNA [id number] Memoria 16:30:00 16:30:00 Pre-Reg r Neurology 04 l Gaston Rad 2019-07-16 2019-07-16 Outpatient MHIE MHIE [id number] Memoria 13:45:00 13:45:00 05 edel Leroy 2019-07-16 2019-07-16 Outpatient MHIE MHIE [id number] Memoria 11:30:00 11:30:00 04 edel Rad 2019-07-16 2019-07-16 Outpatient NORMA McraeSCHDAVID MISCHER [id number] 11:30:00 11:30:00 Delfino Pineda Andujar 2019-05-21 2019-05-21 Outpatient [facility] [id number] Common 09:45:00 09:45:00 t [facility] 2019-05-05 2019-05-05 Outpatient [facility]YAM [facility] [id number] [place] 00:00:00 00:00:00 NELLI Nikunj Method i 2019-05-05 2019-05-05 Outpatient GHANSHYAM [facility] [id number] [place] 00:00:00 00:00:00 NELLI Courtney Method i 2019-04-16 2019-04-17 Outpatient nullFlavo MNA [id number] Memoria 16:30:00 04:59:59 r Neurology 03 l Danyelle Leroy 2019-04-16 2019-04-17 Outpatient nullFlavo MNA [id number] Memoria 16:30:00 04:59:59 r Neurology 03 edel Leroy 2019-04-16 2019-04-16 [id number] 11:30:00 23:59:59 Delfino Freeman Con 2019-04-16 2019-04-16 Outpatient MHIE MHIE [id number] Memoria 11:30:00 11:30:00 03 edel Leroy 2019-04-02 2019-04-02 Ambulatory nullFlavo MNA [id number] Memoria 16:45:00 16:45:00 Pre-Reg r Neurology 02 edel Danyelle Leroy 2019-04-02 2019-04-02 Ambulatory nullFlavo MNA [id number] Memoria 16:45:00 16:45:00 Pre-Reg r Neurology 02 edel Leroy 2019-04-02 2019-04-02 Outpatient MHIE MHIE [id number] Memoria 11:45:00 11:45:00 02 edel Leroy 2019-04-02 2019-04-02 Outpatient [id number] 11:45:00 11:45:00 Delfino Seda Con 2019-03-19 2019-03-19 Outpatient [facility] [id number] Common 15:39:00 15:39:00 [facility] 2019-03-04 2019-03-05 Outpatient nullFlavo MNA [id number] Memoria 18:00:00 04:59:59 r Neurology 01 edel Leroy 2019-03-04 2019-03-05 Outpatient nullFlavo MNA [id number] Memoria 18:00:00 04:59:59 r Neurology 01 l Danyelle Leroy 2019-03-04 2019-03-04 Outpatient FRANCIS McraeALESSANDR[facility]CHDAVID [facility] [id number] 13:00:00 23:59:59 Delfino 01 Con 2019-03-04 2019-03-04 Outpatient MHIE [id number] Memoria 13:00:00 13:00:00 01 edel [facility] 2019-02-04 2019-02-04 Outpatient [facility] [id number] Common 14:15:00 14:15:00 t [facility] [address] [facility] 2019-01-28 2019-01-29 Outpatient nullFlavo MNA [id number] Memoria 19:30:00 04:59:59 r Neurology 00 l Gaston [facility] 2019-01-28 2019-01-29 Outpatient nullFlavo MNA [id number] Memoria 19:30:00 04:59:59 r Neurology 00 l Gaston Rad 2019-01-28 2019-01-28 Out[id number] 14:30:00 23:59:59 Delfino 00 Con 2019-01-02 2019-01-02 Outpatient [facility] [id number] Common 13:41:00 13:41:00 t [facility] [address] [facility] 2018-12-08 2018-12-08 Outpatient [facility] [id number] Common 16:49:00 16:49:[address] [facility] 2018-12-04 2018-12-04 Outpatient [facility] [id number] Common 13:59:00 13:59:[address] [facility] 2018-11-26 2018-11-26 Outpatient [facility] [id number] Common 16:33:00 16:33:00 [facility] 2018-11-04 2018-11-04 Outpatient [facility] [id number] Common 15:30:00 15:30:[address] Family - [facility] Family Medicine [facility] 2018-10-30 2018-10-30 Outpatient Fredo Chavarria [id number] Common 15:49:00 15:49:00 t [facility] 2018-10-30 2018-10-30 Outpatient Fredo Chavarria [id number] Common 15:00:00 15:00:00 t [facility] Results This patient has no known results.
[2022-08-03 21:36] LABS: Absolute Lymphocytes (CBC) 1.5 K/uL (0.7-4.9); Lymphocytes % 8.7 % (15.3-44.8); MCV 88.5 fL (80-100); MPV 8.2 fL (7.6-11.3); RBC Red Blood Cell Count 2.35 M/uL (4.33-5.43)
[2022-08-03 21:43] LABS: Protime INR 1.78
[2022-08-03 21:49] LABS: Hematocrit 20.8 % (39.6-49.0)
[2022-08-03 21:53] LABS: Potassium 4.2 mmol/L (3.5-5.1); Troponin High Sensitivity 16.8 pg/mL (<58.9)
[2022-08-03] MEDS ORDERED: METOPROLOL TARTRATE 5 MG/5 ML INJ IV ONE ×2 (22:10→23:54)
--- NOTE | 2022-08-03 22:14 | RAD REPORT ---
EXAM DESCRIPTION: RAD - Chest Single View - 08/03/2022 10:00 pm CLINICAL HISTORY: CHEST PAIN COMPARISON: Chest Single View dated 07/06/2022; Chest Single View dated 07/05/2022; Chest Single View dated 07/03/2022; Chest Single View dated 07/02/2022; Chest Abdomen Pelvis W Cont dated 06/25/2022 FINDINGS: Lines: Tracheostomy terminates at clavicular heads. Right subclavian approach PICC with ti p overlying proximal SVC. Lungs: Partially obscured lung bases bilaterally. Pleural: Difficult to exclude small effusions. Cardiac: Stable size configuration. Mediastinum: Within normal limits. Bones: No acute fractures. Other: None IMPRESSION: Similar basilar airspace disease which may reflect a combination of atelectasis, pneumon ia, and/or pneumonitis.
[2022-08-03 22:55] LABS: Anisocytosis 1+; Blood Morphology Comment NOTED (NOT SEEN); Platelet Estimate ADEQ
[2022-08-03] MEDS ORDERED: MORPHINE 2 MG/ML SYR ONE (23:54)
[2022-08-03] MEDS ORDERED: NA CHLORIDE 0.9% 500 ML ONE (23:54)
[2022-08-04 00:11] LABS: Urine Blood 2+ (Negative); Urine Glucose Negative (Negative); Urine Protein Trace (Negative); Urine pH 7.5 (5.0-7.0)
[2022-08-04 00:22] LABS: Urine Bacteria <20 /HPF (<20); Urine Mucus Slight /HPF (None Seen); Urine RBC >50 /HPF (None Seen)
[2022-08-04] MEDS ORDERED: METOPROLOL TARTRATE 5 MG/5 ML INJ IV ONE (00:26)
--- NOTE | 2022-08-04 00:36 | ER ---
Nurse's Notes [facility] Name: Beto Luevano Age: 57 yrs Sex: Male : 1965 Arrival Date: 08/03/2022 Time: 20:42 Bed 2 Private MD: Diagnosis: Persistent atrial fibrillation;Anemia, unspecified Presentation: 08/03 20:45 Chief complaint: EMS states: toned out for pt with difficulty breathing, hypoxia sats bb were 70% on scene pt had ROSC approx 6 weeks ago and is currently trached. Coronavirus screen: difficulty breathing. Ebola Screen: No symptoms or risks identified at this time. Initial Sepsis Screen: Does the patient meet any 2 criteria? RR > 20 per min. HR > 90 bpm. Yes Does the patient have a suspected source of infection? Yes: Productive cough/pneumonia If YES to both, name of provider notified: Jesus Murphy MD. Risk Assessment: Do you want to hurt yourself or someone else? Unable to obtain. Onset of symptoms was August 03, 2022. 20:45 Method Of Arrival: EMS: [facility] bb 20:45 Acuity: JUAN 1 bb Triage Assessment: 10:00 Pain: Denies pain. mb9 Historical: - Allergies: 20:49 Ibuprofen; bb - Home Meds: 20:49 gemfibrozil Oral [Active]; lisinopril Oral [Active]; Metformin Oral [Active]; bb - PMHx: 20:49 ALS; Atrial fibrillation; diabetes mellitus; hernia repair; Hypertension; ROSC; HI; bb Tracheostomy; - Immunization history:: unknown. - Social history:: Smoking status: unknown. Screenin:29 Abuse screen: Denies threats or abuse. Denies injuries from another. Nutritional as6 screening: No deficits noted. Tuberculosis screening: No symptoms or risk factors identified. Fall Risk None identified. Assessment: 20:56 General: Appears ill, slender. Neuro: Level of Consciousness is awake. Cardiovascular: as6 Edema is 2+ to right wrist, right hand, right fingers, left midcalf, left ankle, left foot, left toes, left wrist, left hand, left fingers, right midcalf, right ankle, right foot and right toes. Respiratory: Trachea midline Respiratory effort is labored, Sputum is thick, brown yellow. Respiratory: tracheotomy tube in place Breath sounds are diminished bilaterally. Breath sounds with rhonchi bilaterally. GI: PEG tube. 08/04 00:07 Reassessment: No changes from previously documented assessment. Patient and/or family tw5 updated on plan of care and expected duration. Pain level reassessed. Vital Signs: 08/03 20:45 BP 152 / 100; Pulse 138; Resp 24 A; Temp 97.7(A); Pulse Ox 100% on 70% CPAP; Weight bb 68.04 kg (R); 21:01 BP 150 / 92; Pulse 141; Resp 21 A; Pulse Ox 98% on 40% FiO2 ETT vent; as6 21:30 BP 104 / 66; Pulse 141; Resp 21; Pulse Ox 99% on 40% FiO2 ETT vent; as6 22:10 BP 141 / 83; Pulse 141; Resp 18; Pulse Ox 100% on 40% FiO2 ETT vent; as6 23:03 BP 105 / 66; Pulse 136; Resp 19; Pulse Ox 100% on 40% FiO2 ETT vent; as6 23:59 BP 113 / 74; Pulse 139; Resp 18; Pulse Ox 100% on 40% FiO2 ETT vent; tw5 08/04 00:03 BP 108 / 61; Pulse 138; Resp 12; Pulse Ox 100% on 40% FiO2 ETT vent; tw5 04:41 BP 93 / 67; Pulse 136; Pulse Ox 100% on ETT vent; ke1 08/03 23:59 trach tube tw5 08/04 04:41 ventilator per trach ke1 ED Course: 08/03 20:42 Patient arrived in ED. mw2 20:42 Jesus Murphy MD is Attending Physician. bs3 20:45 Fanny Mancuso, GARETH is Primary Nurse. bb 20:49 Triage completed. bb 20:49 Arm band placed on Patient placed in an exam room, on a stretcher, on oxygen, on bb frame catcher, on pulse oximetry. Patient RT at bedside. EKG completed in triage. Results shown to MD. 20:58 Accessed PICC line. Clean \\T\\ dry. Dressing intact. Good blood return. Flushes easily. as6 PICC to right upper arm. 21:05 Primary Nurse role handed off by Fanny Mancuso, GARETH as6 21:05 Erik Montero, GARETH is Primary Nurse. as6 21:08 Lactate Sent. as6 21:28 COVID-19 SARS RT PCR (Document "Date of Onset" if Symptomatic) Sent. 21: Blood Culture Adult (2) Sent. : Lactate Sent. : Protime (+inr) Sent. : Ptt, Activated Sent. : Basic Metabolic Panel Sent. : CBC with Diff Sent. : Troponin HS Sent. : Bed in low position. Call light in reach. Side rails up X2. Adult w/ patient. 22: XRAY Chest (1 view) In Process Unspecified. EDMS 22:27 Cleaned of incontinence. 08/04 00:34 Sammy Ordaz MD is Hospitalizing Provider. bs3 01:10 No provider procedures requiring assistance completed. Patient admitted, IV remains in as6 place. 05:42 Notified ED physician of a critical lab result(s). HGB 6.4 and HCT 19.4. ke1 08/05 07:07 Primary Nurse role handed off by Erik Montero RN eb Administered Medications: 08/03 22:10 Drug: Metoprolol 5 mg Route: IVP; Site: right upper arm; 08/04 01:33 Follow up: Response: No adverse reaction 00:00 Drug: morphine 2 mg Route: IVP; Infused Over: 4 mins; Site: right upper arm; 01:33 Follow up: Response: No adverse reaction 00:02 Drug: NS 0.9% 500 ml Route: IV; Rate: 1 bolus; Site: right upper arm; 01:33 Follow up: Response: No adverse reaction; IV Status: Completed infusion; IV Intake: as6 500ml 00:07 Drug: Metoprolol 5 mg Route: IVP; Site: right upper arm; 01:33 Follow up: Response: No adverse reaction 00:30 Drug: Metoprolol 5 mg Route: IVP; Site: right upper arm; 01:33 Follow up: Response: No adverse reaction 02:10 Drug: amiodarone 900 mg, D5W 500 ml Route: IVPB; Rate: 1 mg/min; Site: right upper arm; 08:10 Follow up: Response: No adverse reaction; Rate change 0.5 mg/min mb9 05:08 Not Given (Other Intervention Used): DuoNeb (albuterol 2.5 mg, ipratropium 0.5 mg) as6 (3:1) (2.5 mg - 0.5 mg) 3 ml Nebulizer once 05:09 Drug: Xopenex (levalbuterol) (3) 0.63 mg Route: Inhalation; as6 Medication: 01:11 VIS not applicable for this client. as6 Intake: 01:33 IV: 500ml; Total: 500ml. as6 Ventilator: 08/03 21:01 Fi02: 40%; Rate: 14min; T.V.: 450ml; Peep: 8cm; as6 Outcome: 08/04 00:35 Decision to Hospitalize by Provider. bs3 01:11 Admitted to ER Hold. [facility]. as6 01:11 Condition: stable 01:11 Instructed on the need for admit. 08/05 17:58 Patient left the ED. mb9 Signatures: Dispatcher [employer] EDMS Fanny Mancuso, RN RN Mahi Benson mw2 Rachna Mcneill Tiffany tw5 Erik Montero RN RN as6 Kaleigh Nieves RN RN ke1 Jesus Murphy MD MD bs3 Sandra Roberts RN RN mb9 Corrections: (The following items were deleted from the chart) 08/04 00:08 00:07 Reassessment: No changes from previously documented assessment. Patient and/or tw5 family updated on plan of care and expected duration. Pain level reassessed. Patient is alert, oriented x 3, equal unlabored respirations, skin warm/dry/pink. tw5
--- NOTE | 2022-08-04 00:36 | EDPHYS ---
Physician Documentation [facility] Name: Beto Luevano Age: 57 yrs Sex: Male : 1965 Arrival Date: 08/03/2022 Time: 20:42 Bed 2 Private MD: ED Physician Jesus Murphy HPI: 08/03 23:38 This 57 yrs old Male presents to ER via EMS with complaints of hypoxia. bs3 23:38 49-year-old male history of A. fib, diabetes, ALS status post trach after cardiac bs3 arrest he was supposed to go home today from rehab where he had been for the last several weeks and when he got home no one was there to assist him if he did not have the proper vent respiratory support nursing or anything else and he was left in a recliner his oxygen saturation dipped down and therefore EMS was called per family they confirmed the patient is now DNR history is limited secondary to patient's ALS per EMS the patient was placed on the ventilator with improvement in oxygenation. 08/04 02:04 Per the family the patient developed hypoxia at home difficulty breathing and some bs3 discomfort, no altered mental status. Historical: - Allergies: 08/03 20:49 Ibuprofen; bb - Home Meds: 20:49 gemfibrozil Oral [Active]; lisinopril Oral [Active]; Metformin Oral [Active]; bb - PMHx: 20:49 ALS; Atrial fibrillation; diabetes mellitus; hernia repair; Hypertension; ROSC; LA; bb Tracheostomy; - Immunization history:: unknown. - Social history:: Smoking status: unknown. ROS: 23:38 Unable to obtain ROS due to patient's speech is incomprehensible, patient is on bs3 ventilator. 23:43 Constitutional: Negative for fever, chills bs3 Exam: 23:38 Constitutional: This is male who appears frail, older than stated age, in moderate bs3 resp distress. Head/Face: Normocephalic, atraumatic. Eyes: Pupils equal round and reactive to light, extra-ocular motions intact. Lids and lashes normal. ENT: mmm, no posterior phyarngeal erythema, trach in place, no active bleeding. Chest/axilla: Normal chest wall appearance and motion. Nontender with no deformity. No lesions are appreciated. Cardiovascular: tachycardic, normal pulse Respiratory: diffuse rhonchi, tachypnea Abdomen/GI: PEG in place, abd soft Skin: Warm, dry with normal turgor. Normal color with no rashes, no lesions, and no evidence of cellulitis. MS/ Extremity: Pulses equal, no cyanosis. Neurovascular intact. Full, normal range of motion. Neuro: awake and alert, no focal deficits. Vital Signs: 20:45 BP 152 / 100; Pulse 138; Resp 24 A; Temp 97.7(A); Pulse Ox 100% on 70% CPAP; Weight bb 68.04 kg (R); 21:01 BP 150 / 92; Pulse 141; Resp 21 A; Pulse Ox 98% on 40% FiO2 ETT vent; as6 21:30 BP 104 / 66; Pulse 141; Resp 21; Pulse Ox 99% on 40% FiO2 ETT vent; as6 22:10 BP 141 / 83; Pulse 141; Resp 18; Pulse Ox 100% on 40% FiO2 ETT vent; as6 23:03 BP 105 / 66; Pulse 136; Resp 19; Pulse Ox 100% on 40% FiO2 ETT vent; as6 23:59 BP 113 / 74; Pulse 139; Resp 18; Pulse Ox 100% on 40% FiO2 ETT vent; tw5 08/04 00:03 BP 108 / 61; Pulse 138; Resp 12; Pulse Ox 100% on 40% FiO2 ETT vent; tw5 04:41 BP 93 / 67; Pulse 136; Pulse Ox 100% on ETT vent; ke1 08/03 23:59 trach tube tw5 08/04 04:41 ventilator per trach ke1 Ventilator: 08/03 21:01 Fi02: 40%; Rate: 14min; T.V.: 450ml; Peep: 8cm; as6 MDM: 20:42 Patient medically screened. bs3 23:38 Data reviewed: vital signs, nurses notes, EMS record, diagnostic data from outside bs3 facility, old medical records, lab test result(s), EKG. 23:41 ED course: Patient with tachycardia here and tachypnea he was placed on the ventilator bs3 PEEP was increased given his rhonchi and history of pulmonary edema with improvement in his oxygenation O2 was titrated down patient persistently tachycardic his EKG is a flutter at [address] elevations or depressions to see 400 he does have T wave inversions in his lateral leads, all symptoms likely attributable to decompensation in the setting of inappropriate event and discharge x-ray consistent with pulmonary edema patient anemic care will trend hemoglobin no active bleeding on exam will admit for stabilization and further management, pt had no sig response to metoprolol x3, per prior rec, pt did need amiodarone, will start amiodarone drip, but avoid bolus as pt has fragile hypotension, and previously had an arrest 2/2 hypotension. . 08/04 00:29 ED course: pt persistent afib, given 3 dose metoprolol. ED course: paged again at bs3 12:30am, awaiting callback. ED course: Dr. Modi paged at 12:00am, awaiting callback Dr. Ordaz called back, and admission orders placed, given vent status, afib rvr, will place in ICU. 08/03 21:07 Order name: Basic Metabolic Panel; Complete Time: 22:22 bs3 08/03 21:07 Order name: CBC with Diff; Complete Time: 22:59 bs3 08/03 22:23 Interpretation: Abnormal: RBC 2.35; low . bs3 08/03 21:07 Order name: Troponin HS; Complete Time: 22:22 bs3 08/03 21:07 Order name: Blood Culture Adult (2) bs3 08/03 21:07 Order name: Lactate; Complete Time: 22:22 bs3 08/03 21:07 Order name: Protime (+inr); Complete Time: 22:22 bs3 08/03 21:07 Order name: Ptt, Activated; Complete Time: 22:22 bs3 08/03 21:14 Order name: COVID-19 SARS RT PCR (Document "Date of Onset" if Symptomatic); Complete bb Time: 22:22 08/03 21:52 Order name: Manual Differential; Complete Time: 22:59 EDMS 08/03 23:49 Order name: UA MICROSCOPIC; Complete Time: 05:08 bs3 08/04 00:11 Order name: Urine Dipstick-Ancillary; Complete Time: 05:08 EDMS 08/04 05:38 Order name: Comprehensive Metabolic Panel EDMS 08/04 05:43 Order name: CBC with Automated Diff EDMS 08/04 05:44 Order name: Type And Screen as6 08/04 06:39 Order name: Bb Add On eb 08/04 06:44 Order name: Type and Screen EDMS 08/04 06:51 Order name: ABO/RH no charge EDMS 08/04 16:09 Order name: Hemoglobin EDMS 08/04 16:09 Order name: Hematocrit EDMS 08/04 16:55 Order name: Glucose, Ancillary Testing EDMS 08/04 22:56 Order name: Hemoglobin EDMS 08/04 22:56 Order name: Hematocrit EDMS 08/05 05:13 Order name: CBC with Automated Diff EDMS 08/05 05:43 Order name: Comprehensive Metabolic Panel EDMS 08/05 05:44 Order name: Thyroid Stimulating Hormone EDMS 08/05 05:58 Order name: T4 Free EDMS 08/05 07:59 Order name: Glucose, Ancillary Testing EDMS 08/05 11:58 Order name: Glucose, Ancillary Testing EDMS 08/03 21:07 Order name: XRAY Chest (1 view); Complete Time: 22:22 bs3 08/03 21:07 Order name: EKG; Complete Time: 21:08 bs3 08/03 21:07 Order name: Cardiac monitoring; Complete Time: 21:08 bs3 08/03 21:07 Order name: EKG - Nurse/Tech; Complete Time: 21:08 bs3 08/03 21:07 Order name: IV Saline Lock; Complete Time: 21:08 bs3 08/03 21:07 Order name: Labs collected and sent; Complete Time: 21:28 bs3 08/03 21:07 Order name: O2 Per Protocol; Complete Time: 21:28 bs3 08/03 21:07 Order name: O2 Sat Monitoring; Complete Time: 21:08 bs3 08/03 21:07 Order name: Accucheck; Complete Time: 21:28 bs3 08/03 21:07 Order name: Cardiac monitoring; Complete Time: 21:08 bs3 08/03 21:07 Order name: EKG - Nurse/Tech; Complete Time: 21:08 bs3 08/03 21:07 Order name: IV Saline Lock - Large Bore; Complete Time: 21:08 bs3 08/03 21:07 Order name: Labs collected and sent; Complete Time: 21:28 bs3 08/03 21:07 Order name: O2 Per Protocol; Complete Time: 21:08 bs3 08/03 21:07 Order name: O2 Sat Monitoring; Complete Time: 21:08 bs3 08/03 21:07 Order name: Vital Signs; Complete Time: 21:08 bs3 Administered Medications: 08/03 22:10 Drug: Metoprolol 5 mg Route: IVP; Site: right upper arm; as6 08/04 01:33 Follow up: Response: No adverse reaction as6 00:00 Drug: morphine 2 mg Route: IVP; Infused Over: 4 mins; Site: right upper arm; tw5 01:33 Follow up: Response: No adverse reaction as6 00:02 Drug: NS 0.9% 500 ml Route: IV; Rate: 1 bolus; Site: right upper arm; tw5 01:33 Follow up: Response: No adverse reaction; IV Status: Completed infusion; IV Intake: as6 500ml 00:07 Drug: Metoprolol 5 mg Route: IVP; Site: right upper arm; tw5 01:33 Follow up: Response: No adverse reaction as6 00:30 Drug: Metoprolol 5 mg Route: IVP; Site: right upper arm; as6 01:33 Follow up: Response: No adverse reaction as6 02:10 Drug: amiodarone 900 mg, D5W 500 ml Route: IVPB; Rate: 1 mg/min; Site: right upper arm; as6 08:10 Follow up: Response: No adverse reaction; Rate change 0.5 mg/min mb9 05:08 Not Given (Other Intervention Used): DuoNeb (albuterol 2.5 mg, ipratropium 0.5 mg) as6 (3:1) (2.5 mg - 0.5 mg) 3 ml Nebulizer once 05:09 Drug: Xopenex (levalbuterol) (3) 0.63 mg Route: Inhalation; as6 Disposition Summary: 08/04/22 00:35 Hospitalization Ordered Hospitalization Status: Inpatient Admission bs3 Provider: Sammy Ordaz bs3 Condition: Guarded bs3 Problem: new bs3 Symptoms: are unchanged bs3 Bed/Room Type: Standard bs3 Location: Intensive Care Unit(08/05/22 17:15) eb Room Assignment: 3-(08/05/22 17:15) eb Diagnosis - Persistent atrial fibrillation bs3 - Anemia, unspecified bs3 Forms: - Medication Reconciliation Form bs3 - SBAR form bs3 Critical care time excluding procedures: 08/03 23:38 Critical care time: Bedside Care: 36 minutes, Family Intervention: 10 minutes, bs3 documentation: 10 minutes. Total time: 56 minutes Signatures: Dispatcher [employer] EDMS Fanny Mancuso, Sugey Hernandez RN, RN RN cg Mcneill RachnaLurdes Baez tw5 Erik Montero RN RN as6 Jesus Murphy MD MD bs3 Sandra Roberts RN mb9 Corrections: (The following items were deleted from the chart) 22:22 Abnormal: HGB 7.0. bs3 bs3 08/04 00:39 00:35 Intensive Care Unit bs3 cg 00:39 00:35 bs3 cg 02:06 08/03 23:38 Constitutional: This is a well developed, well nourished patient who is bs3 awake, alert, and in no acute distress. Head/Face: Normocephalic, atraumatic. Eyes: Pupils equal round and reactive to light, extra-ocular motions intact. Lids and lashes normal. ENT: mmm, no posterior phyarngeal erythema Chest/axilla: Normal chest wall appearance and motion. Nontender with no deformity. No lesions are appreciated. Cardiovascular: tachycardic, normal pulse Respiratory: diffuse rhonchi, tachypnea Abdomen/GI: PEG in place, abd soft MS/ Extremity: Pulses equal, no cyanosis. Neurovascular intact. Full, normal range of motion. Neuro: awake and alert, no focal deficits. bs3 08/04 02:08 08/03 23:41 ED course: Patient with tachycardia here and tachypnea he was placed on the bs3 ventilator PEEP was increased given his rhonchi and history of pulmonary edema with improvement in his oxygenation O2 was titrated down patient persistently tachycardic his EKG is a flutter at [address] elevations or depressions to see 400 he does have T wave inversions in his lateral leads, all symptoms likely attributable to decompensation in the setting of inappropriate event and discharge x-ray consistent with pulmonary edema patient anemic care will trend hemoglobin no active bleeding on exam will admit for stabilization and further management. bs3 08/04 02:08 00:29 ED course: Dr. Gauda paged at 12:00am, awaiting callback. bs3 bs3 02:08 00:37 Metoprolol 5 mg IVP once; Hold for SBP <100 or HR <60. given. as6 bs3 08/05 17:08/04 00:39 [facility] ER HOLD cg eb 08/05 00:39 ERHOLD- cg eb
[2022-08-04] MEDS: MORPHINE 2 MG/ML SYR IV PRN ×3 (01:35→14:28)
[2022-08-04] MEDS ORDERED: MORPHINE 2 MG/ML SYR ONE ×3 (01:37→14:20)
[2022-08-04] MEDS ORDERED: AMIODARONE IN DEXTROSE,ISO-OSM 360 MG/200 ML BAG IV ONE ×2 (02:04→08:57)
[2022-08-04] MEDS: AMIODARONE HCL 900 MG in Dextrose 5%-Water 482 ML IV SCH (02:10)
[2022-08-04] MEDS ORDERED: ALBUTEROL 2.5 MG/3 ML NEB SOL ONE (05:00)
[2022-08-04] MEDS ORDERED: IPRATROPIUM BROM 0.5MG/2.5ML ONE (05:00)
[2022-08-04] MEDS ORDERED: LEVALBUTEROL 1.25 MG/3 ML NEB ONE (05:06)
[2022-08-04 05:37] LABS: Absolute Lymphocytes (CBC) 2.1 K/uL (0.7-4.9); Albumin 1.8 g/dL (3.4-5.0); Bilirubin Total 0.5 mg/dL (0.2-1.0); Lymphocytes % 13.5 % (15.3-44.8); MCV 88.3 fL (80-100); MPV 8.7 fL (7.6-11.3); Protein, Total 7.8 g/dL (6.4-8.2)
[2022-08-04 05:42] LABS: Hematocrit 19.4 % (39.6-49.0)
[2022-08-04] MEDS ORDERED: NA CHLORIDE 0.9% 250 ML ONE (07:50)
[2022-08-04] MEDS: Levofloxacin500mg IV 500 MG/100 ML BAG IV SCH (11:00)
[2022-08-04] MEDS ORDERED: SODIUM CHLORIDE 0.9% 10ML INJ IV PRN (11:03)
--- NOTE | 2022-08-04 11:09 | P.HP ---
Certification for Inpatient Patient admitted to: Inpatient With expected LOS: >2 Midnights Patient will require the following post-hospital care: Home Health Services Practitioner: I am a practitioner with admitting privileges, knowledge of patient current condition, hospital course, and medical plan of care. Services: Services provided to patient in accordance with Admission requirements found in Title 42 Section 412.3 of the Code of Federal Regulations Patient History Date of Service: 08/04/22 Primary Care Provider: Orlin Reason for admission: atrial fib. History of Present Illness: Patient who was recently admitted for afib and respiratory failure. He was sent to [facility] after the admission in Jun. The patient was sent home with hospice. . However his home vent and meds had not been delivered. He was brought to the emergency room and again found to be in Afib. The patient was also found to have an elevated wbc. He had some possible pneumonia or atelectasis in his lung basis. During the night his hb dropped below 7 and he received a unit of prbc. He has a history of chronic anemia. The patient history is difficult as he has ALS. Has a tracheostomy and can not speak. Most communication is through an attempt to read his lips. Which is difficult Allergies ibuprofen Allergy (Verified 06/25/22 18:53) Hives Home Medications: Aspirin [Adult Low Dose Aspirin EC] 81 mg PO DAILY 12/02/18 Docosahexanoic AC/Epa [Fish Oil 1,000 MG*] 1,000 mg PO DAILY 12/02/18 Metformin HCl 1,000 mg PO BEDTIME 12/02/18 Metformin HCl 1,500 mg PO DAILY 12/02/18 Multivit-Mins/Iron/Folic/Lycop [Centrum Men's Tablet] 1 tab PO DAILY 12/02/18 gemfibroziL [Gemfibrozil] 600 mg PO BID 12/02/18 lisinopriL [Lisinopril] 30 mg PO DAILY 12/02/18 Rivaroxaban [Xarelto] 20 mg PO DAILY 90 Days #90 tablet 12/03/18 carvediloL [Coreg*] 6.25 mg PO BID 90 Days #180 tab 12/03/18 - Past Medical/Surgical History Diabetic: Yes -: HTN -: hyperlipidemia -: NIDDM -: L ankle fx -: pancreatitis -: als -: L ankle surgery -: trech - Family History Father -: Hypertension, Diabetes Mother -: Hypertension, Cancer Notes: liver ca with mets - Social History Smoking Status: Unknown if ever smoked Alcohol use: Yes CD- Drugs: No Caffeine use: Yes Review of Systems thirsty Respiratory: Sputum (per respiratory, thick greenish sputum ) Physical Examination - Vital Signs Temperature: 98.4 F Blood Pressure: 105/61 Pulse: 140 Respirations: 18 Pulse Ox (%): 99 - Physical Exam General: Alert, Mild distress HEENT: PERRLA, Mucous membr. moist/pink, Other (tracheostomy in place), EOMI, Sclerae nonicteric Neck: Supple, 2+ carotid pulse no bruit, No LAD, Without JVD or thyroid abnormality Respiratory: Clear to auscultation bilaterally, Normal air movement Cardiovascular: Normal S1 S2, Irregular heart rate/rhythm (tachycardia) Gastrointestinal: Normal bowel sounds, No tenderness Musculoskeletal: No tenderness Integumentary: No rashes Neurological: Normal gait, Normal speech, Normal strength at 5/5 x4 extr, Normal tone, Normal affect Lymphatics: No axilla or inguinal lymphadenopathy - Studies Laboratory Data (last 24 hrs) 08/03/22 21:18: PT 19.6 H, INR 1.78, APTT 54.7 H 08/03/22 21:18: WBC 17.30 H, Hgb 7.0 L, Hct 20.8 L*, Plt Count 308 08/03/22 21:18: Sodium 136, Potassium 4.2, BUN 25 H, Creatinine 0.56, Glucose 152 H Assessment and Plan - Problems (Diagnosis) (1) Atrial fibrillation Current Visit: No Status: Acute Plan: currently on amiodarone drip. Will start his old dose of carvedilol. Will correct his anemia. as well Qualifiers: Atrial fibrillation type: paroxysmal Qualified Code(s): I48.0 - Paroxysmal atrial fibrillation (2) Diabetes 1.5, managed as type 2 Current Visit: No Status: Chronic Plan: will start him on sliding scale insulin. Get nutrition. To access the patient Start him on Jevity for now (3) HTN (hypertension) Current Visit: No Status: Acute Plan: restart his lisinopril. Adjust as necessary Qualifiers: Hypertension type: primary hypertension Qualified Code(s): I10 - Essential (primary) hypertension (4) Tracheostomy care Current Visit: No Status: Acute Plan: We may have Dr. Navarrete take a look at him on Saturday. However at this time. The trach seems to be functional and positioned well. (5) ALS (amyotrophic lateral sclerosis) Current Visit: No Status: Chronic Plan: Patient is able to move his head. he is alert. Not much movement in his limbs. Will keep him on Fall precautions. Most likely will be discharged to hospice on Saturday. Discharge Plan: Home Plan to discharge in: 72 Hours - Advance Directives Does patient have a Living Will: Yes Does patient have a Durable POA for Healthcare: Yes - Code Status/Comfort Care Code Status Assessed: Yes Code Status: Do Not Attempt Resuscitat Physician Review: Patient Assessed, Agree with Above Assessment and Plan Critical Care: No Time Spent Managing Pts Care (In Minutes): 50
[2022-08-04] MEDS: NA CHLORIDE 0.9% 1,000 ML IV SCH (12:00)
[2022-08-04] MEDS ORDERED: Levofloxacin500mg IV 500 MG/100 ML BAG IV ONE (12:11)
[2022-08-04] MEDS ORDERED: PANTOPRAZOLE 40 MG INJ ONE (12:11)
[2022-08-04] MEDS ORDERED: NA CHLORIDE 0.9% 1,000 ML ONE (12:11)
[2022-08-04] MEDS ORDERED: METOPROLOL TARTRATE 5 MG/5 ML INJ IV STA (15:02)
[2022-08-04] MEDS ORDERED: METOPROLOL TAR 25 MG TAB PO ONE (15:04)
[2022-08-04 16:03] LABS: Hematocrit 22.2 % (39.6-49.0)
[2022-08-04] MEDS: METOPROLOL TAR 25 MG TAB PO SCH (17:00)
[2022-08-04] MEDS ORDERED: carvediloL 3.125 MG TAB PO SCH (18:00)
[2022-08-04] MEDS ORDERED: APIXABAN 2.5 MG TABLET PO SCH (21:00)
--- NOTE | 2022-08-04 22:13 | CON ---
Date of Consultation: 08/04/2022 Reason For Consultation: Atrial flutter. History Of Present Illness: This is a 57-year-old male, history of atrial fibrillation/flutter, real estate agency licensee teresa respiratory failure status post tracheostomy, diabetes, dyslipidemia, presented to the emergency room because of fast heart rate. The patient does not have any symptoms. He has severe ALS and is b edbound. Saw him by bedside and is not able to talk, but his heart rate is running in the 130s to 14 0s with amiodarone drip that was started earlier during the day. Past Medical History: As outlined above. Medications: Refer to reconciliation sheet for detailed list. Allergies: IBUPROFEN. Family History: No premature coronary artery disease or cancer. Social History: Does not smoke or drink. Review of Systems: All systems reviewed and they are negative except as mentioned in HPI. Physical Examination: Vital Signs: Reviewed. Head and Neck: Pupils are equal, reactive to light. Intact eye movements. No JVD. Neck: Supple. Thyroid is not enlarged. Lungs: Clear to auscultation bilaterally. No rhonchi, wheezing, or crackles. No accessory muscle u se. Heart: Regular rate and rhythm. No extra sounds. Abdomen: Soft, nontender. Bowel sounds positive. No organomegaly. No masses or hernia. No rigidi ty or rebound. Extremities: No clubbing, cyanosis. Intact pulses. Skin: No rash. Neurologic: Alert, awake, oriented x3, but has tracheostomy with connected ventilator and moving low er extremities. Lymph Nodes: No cervical or axillary lymphadenopathy. Investigations: Labs were reviewed. Assessment And Recommendation: 1.Atrial flutter with rapid ventricular response. I will continue amiodarone for full 24 hours load . Start him on metoprolol 25 mg through the PEG tube q.8 hours. Give him 5 mg of metoprolol IV now and we will adjust accordingly. Go ahead and discontinue the carvedilol. 2.Hypertension. Blood pressure is controlled. SR/MODL Voice ID: [id number] Report ID: [id number]
[2022-08-04 22:56] LABS: Hematocrit 24.2 % (39.6-49.0)
[2022-08-05] MEDS: METOPROLOL TAR 25 MG TAB PO SCH ×3 (01:00→19:52)
[2022-08-05] MEDS: NA CHLORIDE 0.9% 1,000 ML IV SCH (01:20)
[2022-08-05] MEDS: MORPHINE 2 MG/ML SYR IV PRN ×4 (01:30→23:30)
[2022-08-05] MEDS ORDERED: NA CHLORIDE 0.9% 1,000 ML ONE ×2 (01:56→15:37)
[2022-08-05] MEDS ORDERED: MORPHINE 2 MG/ML SYR ONE ×3 (01:56→15:37)
[2022-08-05] MEDS ORDERED: METOPROLOL TAR 25 MG TAB ONE ×2 (01:56→08:15)
[2022-08-05 05:11] LABS: Absolute Lymphocytes (CBC) 1.4 K/uL (0.7-4.9); Hematocrit 23.4 % (39.6-49.0); Lymphocytes % 7.4 % (15.3-44.8); MCV 86.9 fL (80-100); MPV 7.7 fL (7.6-11.3)
[2022-08-05 05:30] LABS: Albumin 1.7 g/dL (3.4-5.0); Bilirubin Total 0.8 mg/dL (0.2-1.0); Potassium 3.8 mmol/L (3.5-5.1); Protein, Total 7.4 g/dL (6.4-8.2)
[2022-08-05 05:44] LABS: Thyroid Stimulating Hormone 5.95 uIU/mL (0.360-3.740)
[2022-08-05] MEDS ORDERED: lisinopriL 5 MG TAB ONE (08:14)
[2022-08-05] MEDS ORDERED: PANTOPRAZOLE 40 MG INJ ONE (08:15)
[2022-08-05] MEDS: PANTOPRAZOLE 40 MG INJ IVP SCH (08:33)
[2022-08-05] MEDS: lisinopriL 5 MG TAB PO SCH (08:33)
--- NOTE | 2022-08-05 13:13 | P.PN ---
Subjective Date of Service: 08/05/22 Primary Care Provider: Orlin Chief Complaint: atrial fib. Subjective: No new changes Review of Systems 10-point ROS is otherwise unremarkable Physical Examination - Vital Signs Temperature: 98.4 F Blood Pressure: 124/88 Pulse: 122 Respirations: 18 Pulse Ox (%): 99 - Physical Exam General: Alert, In no apparent distress HEENT: Atraumatic, PERRLA, EOMI Neck: Supple, JVD not distended Respiratory: Clear to auscultation bilaterally, Normal air movement Cardiovascular: Normal S1 S2, Irregular heart rate/rhythm (tachycardia) Gastrointestinal: Normal bowel sounds, No tenderness Musculoskeletal: No tenderness Integumentary: No rashes Neurological: Normal speech, Normal tone, Normal affect Lymphatics: No axilla or inguinal lymphadenopathy Assessment And Plan - Current Problems (Diagnosis) (1) Atrial fibrillation with RVR Current Visit: Yes Status: Acute Plan: Patient is better controlled today. He has been started on metoprolol. Q8hrs. Possible cardioversion. Will discuss with Dr. Joyner (2) GI bleed Current Visit: Yes Status: Acute Plan: once he is stable from a cardiac standpoint we can scope him with Dr. Ponce. Patient agreed to this. Qualifiers: GI bleed type/associated pathology: melena Qualified Code(s): K92.1 - Melena (3) Diabetes 1.5, managed as type 2 Current Visit: No Status: Chronic Plan: will start him on sliding scale insulin. Get nutrition. To access the patient Start him on Jevity for now (4) HTN (hypertension) Current Visit: No Status: Acute Plan: restart his lisinopril. Adjust as necessary Qualifiers: Hypertension type: primary hypertension Qualified Code(s): I10 - Essential (primary) hypertension (5) Tracheostomy care Current Visit: No Status: Acute Plan: We may have Dr. Navarrete take a look at him on Saturday. However at this time. The trach seems to be functional and positioned well. (6) ALS (amyotrophic lateral sclerosis) Current Visit: No Status: Chronic Plan: Patient is able to move his head. he is alert. Not much movement in his limbs. Will keep him on Fall precautions. Most likely will be discharged to hospice on Saturday. Discharge Plan: Home - Code Status/Comfort Care Code Status Assessed: Yes Code Status: Full Code Physician Review: Patient Assessed, Agree with Above Assessment and Plan Critical Care: Yes Time Spent Managing PTS Care (In Minutes): 25
[2022-08-05] MEDS ORDERED: METOPROLOL TARTRATE 5 MG/5 ML INJ IV STA (15:54)
[2022-08-05] MEDS ORDERED: METOPROLOL TARTRATE 5 MG/5 ML INJ IV ONE (15:54)
[2022-08-05] MEDS ORDERED: GOLYTELY 4000 ML ONE (16:46)
[2022-08-05] MEDS ORDERED: JEVITY 1.2 CAL LIQUID 1,000 ML BOT FT SCH ×2 (22:00)
[2022-08-06] MEDS: METOPROLOL TAR 25 MG TAB PO SCH ×2 (00:06→09:23)
[2022-08-06] MEDS ORDERED: AMIODARONE IN DEXTROSE,ISO-OSM 360 MG/200 ML BAG IV ONE (03:40)
[2022-08-06] MEDS: AMIODARONE HCL 900 MG in Dextrose 5%-Water 482 ML IV SCH (03:51)
[2022-08-06 05:04] LABS: Absolute Lymphocytes (CBC) 1.5 K/uL (0.7-4.9); Hematocrit 26.5 % (39.6-49.0); Lymphocytes % 6.9 % (15.3-44.8); MCV 87.5 fL (80-100); RBC Red Blood Cell Count 3.02 M/uL (4.33-5.43)
[2022-08-06 05:32] LABS: Albumin 1.9 g/dL (3.4-5.0); Bilirubin Total 0.9 mg/dL (0.2-1.0); Potassium 3.6 mmol/L (3.5-5.1); Protein, Total 8.1 g/dL (6.4-8.2)
[2022-08-06 05:37] LABS: Blood Morphology Comment NOT SEEN (NOT SEEN); Platelet Estimate ADEQ
--- NOTE | 2022-08-06 07:51 | P.PN ---
Subjective Date of Service: 08/06/22 Primary Care Provider: Orlin Chief Complaint: atrial fib. Subjective: No new changes Review of Systems 10-point ROS is otherwise unremarkable Physical Examination - Vital Signs Temperature: 97.1 F Blood Pressure: 125/65 Pulse: 110 Respirations: 14 Pulse Ox (%): 98 - Physical Exam General: Alert, In no apparent distress HEENT: Atraumatic, PERRLA, EOMI Neck: Supple, JVD not distended Respiratory: Clear to auscultation bilaterally, Normal air movement Cardiovascular: Normal S1 S2, Irregular heart rate/rhythm Gastrointestinal: Normal bowel sounds, No tenderness Musculoskeletal: No tenderness Integumentary: No rashes Neurological: Normal speech, Normal tone, Normal affect Lymphatics: No axilla or inguinal lymphadenopathy Assessment And Plan - Current Problems (Diagnosis) (1) Atrial fibrillation with RVR Current Visit: Yes Status: Acute Plan: Patient is better controlled today. He has been started on metoprolol. Q8hrs. Possible cardioversion. 08/06 Patient is slightly improved on his heart rate. (2) GI bleed Current Visit: Yes Status: Acute Plan: once he is stable from a cardiac standpoint we can scope him with Dr. Ponce. Patient agreed to this. Qualifiers: GI bleed type/associated pathology: melena Qualified Code(s): K92.1 - Melena (3) Diabetes 1.5, managed as type 2 Current Visit: No Status: Chronic Plan: will start him on sliding scale insulin. Get nutrition. To access the patient Start him on Jevity for now (4) HTN (hypertension) Current Visit: No Status: Acute Plan: restart his lisinopril. Adjust as necessary Qualifiers: Hypertension type: primary hypertension Qualified Code(s): I10 - Essential (primary) hypertension (5) Tracheostomy care Current Visit: No Status: Acute Plan: We may have Dr. Navarrete take a look at him on Saturday. However at this time. The trach seems to be functional and positioned well. (6) ALS (amyotrophic lateral sclerosis) Current Visit: No Status: Chronic Plan: Patient is able to move his head. he is alert. Not much movement in his limbs. Will keep him on Fall precautions. Most likely will be discharged to hospice on Saturday. Discharge Plan: Home Plan to discharge in: Greater than 2 days - Code Status/Comfort Care Code Status Assessed: No Physician Review: Patient Assessed, Agree with Above Assessment and Plan Critical Care: Yes Time Spent Managing PTS Care (In Minutes): 30
[2022-08-06] MEDS: PANTOPRAZOLE 40 MG INJ IVP SCH (09:22)
[2022-08-06] MEDS: lisinopriL 5 MG TAB PO SCH (09:23)
[2022-08-06] MEDS ORDERED: FENTANYL CITR 100 MCG/2 ML ONE (11:38)
[2022-08-06] MEDS ORDERED: MIDAZOLAM HCL 0 ML ONE (11:39)
[2022-08-06] MEDS ORDERED: METOPROLOL TARTRATE 5 MG/5 ML INJ IV ONE (11:39)
[2022-08-06] MEDS ORDERED: MIDAZOLAM HCL 2 MG/2 ML INJ ONE (11:39)
[2022-08-06] MEDS ORDERED: FLUMAZENIL 0.1 MG/ML (5 mL VIAL) IV ONE (11:40)
[2022-08-06] MEDS ORDERED: LIDOCAINE VISCOUS 2% SOLN 15 ML UDC ONE (11:40)
[2022-08-06] MEDS ORDERED: HYDRALAZINE HCL 20 MG/ML VIAL ONE (11:40)
[2022-08-06] MEDS ORDERED: ATROPINE SULF 1 MG/10 ML SYR IV ONE (11:40)
[2022-08-06] MEDS ORDERED: PHENOL 1.4% ORAL SPRAY 180ML ONE (11:41)
[2022-08-06] MEDS: AMIODARONE HCL 200 MG TAB FT SCH ×2 (14:36→20:30)
[2022-08-06] MEDS: VITAL AF 1,000 ML BOT RTH SCH (14:37)
[2022-08-06] MEDS ORDERED: METOPROLOL TAR 25 MG TAB PO ONE (15:00)
--- NOTE | 2022-08-06 16:05 | EKG ---
Test Date: 2022-08-03 Test Time: 20:49:00 Health Type Technician: MEASUREMENT RESULTS: Intervals: Rate: 139 NC: 152 QRSD: 88 QT: 264 QTc: 401 [place]: P: NC: 152 QRS: 44 T: 205 INTERPRETIVE STATEMENTS: Atrial flutter with RVR ST & T wave abnormality, consider inferior ischemia ST & T wave abnormality, consider anterolateral ischemia Abnormal ECG Compared to ECG 06/28/2022 11:08:05 ST (T wave) deviation still present Electronically Signed On 08-06-22 15:59:46 CDT by Tres Joyner
[2022-08-06] MEDS: METOPROLOL TAR 50 MG TAB PO SCH (17:39)
--- NOTE | 2022-08-06 20:17 | PN ---
Date of Progress Note: 08/06/2022 Subjective: Seen by bedside. His heart rate is down to low 100. Had a plan to do RITIKA-guided cardio version, however, he refused. He needs to be on amiodarone drip. No distress. Review of Systems: No chest pain, shortness of breath, orthopnea, cough. No nausea, vomiting, diarrhea. All other syst ems reviewed and they are negative. Physical Examination: Vital Signs: Reviewed. Head and Neck: Pupils are equal, reactive to light. Intact eye movements. No JVD. No cervical lym phadenopathy. Neck: Supple. Thyroid is not enlarged. Has tracheostomy in place. Lungs: Clear to auscultation bilaterally. No rhonchi, wheezing, or crackles. No accessory muscle u se. Heart: Irregularly irregular. No extra sounds. Abdomen: Soft, nontender. Bowel sounds positive. No organomegaly. No masses or hernia. No rigidi ty or rebound. Extremities: No clubbing, cyanosis. Intact pulses. Skin: No rash. Neurologic: Alert, awake, oriented x3. No acute focal deficits appreciated. Investigations: BUN 16, creatinine 0.44. Assessment And Recommendation: 1.Atrial flutter, still with rapid ventricular response. Increase metoprolol 50 mg by mouth 3 times a day. Change amiodarone to 200 mg through the PEG tube twice a day. I am going to adjust further for better rate control. Patient refused the RITIKA-guided cardioversion. Also recommend to start him on Eliquis 5 mg twice a day for stroke prevention. 2.Hypertension. Blood pressure is uncontrolled, increasing metoprolol. Also recommend to increase the SOLITARIO inhibitor, get blood pressure under better control jason saravia. /DAMON Voice ID: [id number] Report ID: [id number]
[2022-08-06] MEDS: MORPHINE 2 MG/ML SYR IV PRN (22:41)
[2022-08-07] MEDS: METOPROLOL TAR 50 MG TAB PO SCH ×3 (00:16→18:07)
[2022-08-07 04:54] LABS: Absolute Lymphocytes (CBC) 1.2 K/uL (0.7-4.9); Hematocrit 22.6 % (39.6-49.0); Lymphocytes % 8.6 % (15.3-44.8); MCV 87.1 fL (80-100); MPV 7.9 fL (7.6-11.3); RBC Red Blood Cell Count 2.59 M/uL (4.33-5.43)
[2022-08-07 05:04] LABS: Albumin 1.6 g/dL (3.4-5.0); Bilirubin Total 0.7 mg/dL (0.2-1.0); Potassium 3.1 mmol/L (3.5-5.1); Protein, Total 6.9 g/dL (6.4-8.2)
--- NOTE | 2022-08-07 07:54 | P.PN ---
Subjective Date of Service: 08/07/22 Primary Care Provider: Orlin Chief Complaint: atrial fib. Subjective: No new changes Review of Systems 10-point ROS is otherwise unremarkable Physical Examination - Vital Signs Temperature: 97.4 F Blood Pressure: 122/75 Pulse: 110 Respirations: 18 Pulse Ox (%): 100 - Physical Exam General: Alert, In no apparent distress HEENT: Atraumatic, PERRLA, EOMI Neck: Supple, JVD not distended Respiratory: Clear to auscultation bilaterally, Normal air movement Cardiovascular: Regular rate/rhythm, Normal S1 S2 Gastrointestinal: Normal bowel sounds, No tenderness Musculoskeletal: No tenderness Integumentary: No rashes Neurological: Normal speech, Normal tone, Normal affect Lymphatics: No axilla or inguinal lymphadenopathy Assessment And Plan - Current Problems (Diagnosis) (1) Atrial fibrillation with RVR Current Visit: Yes Status: Acute Plan: Patient is better controlled today. He has been started on metoprolol. Q8hrs. Possible cardioversion. 08/07 Heart rate better controlled. Will discuss with Dr. Ar villarreal we can take him for an egd. (2) GI bleed Current Visit: Yes Status: Acute Plan: once he is stable from a cardiac standpoint we can scope him with Dr. Ponce. Patient agreed to this. 08/07 Possible egd if we can get cardiac clearance Qualifiers: GI bleed type/associated pathology: melena Qualified Code(s): K92.1 - Melena (3) Diabetes 1.5, managed as type 2 Current Visit: No Status: Chronic Plan: will start him on sliding scale insulin. Get nutrition. To access the patient Start him on Jevity for now (4) HTN (hypertension) Current Visit: No Status: Acute Plan: restart his lisinopril. Adjust as necessary Qualifiers: Hypertension type: primary hypertension Qualified Code(s): I10 - Essential (primary) hypertension (5) Tracheostomy care Current Visit: No Status: Acute Plan: We may have Dr. Navarrete take a look at him on Saturday. However at this time. The trach seems to be functional and positioned well. (6) ALS (amyotrophic lateral sclerosis) Current Visit: No Status: Chronic Plan: Patient is able to move his head. he is alert. Not much movement in his limbs. Will keep him on Fall precautions. Most likely will be discharged to hospice on Saturday. Discharge Plan: Home Plan to discharge in: 24 Hours - Code Status/Comfort Care Code Status Assessed: No Physician Review: Patient Assessed, Agree with Above Assessment and Plan Critical Care: Yes Time Spent Managing PTS Care (In Minutes): 20
[2022-08-07] MEDS: PANTOPRAZOLE INJ 80 MG in NA CHLORIDE 0.9% 250 ML IV SCH ×2 (09:06→21:30)
[2022-08-07] MEDS: AMIODARONE HCL 200 MG TAB FT SCH ×2 (09:07→20:25)
[2022-08-07] MEDS: lisinopriL 5 MG TAB PO SCH (09:07)
[2022-08-07] MEDS ORDERED: POTASSIUM 25 MEQ EFFERV TAB PO ONE (11:44)
[2022-08-07] MEDS: GOLYTELY 4000 ML PO SCH (16:09)
[2022-08-08] MEDS: METOPROLOL TAR 50 MG TAB PO SCH ×3 (00:17→16:56)
[2022-08-08] MEDS ORDERED: KCL 20 MEQ/100 mL IVPB 20 MEQ/100 ML BAG IV SCH (02:00)
[2022-08-08] MEDS: PANTOPRAZOLE INJ 80 MG in NA CHLORIDE 0.9% 250 ML IV SCH ×3 (05:00→22:44)
[2022-08-08 05:21] LABS: Absolute Lymphocytes (CBC) 1.5 K/uL (0.7-4.9); Lymphocytes % 13.9 % (15.3-44.8); MCV 87.2 fL (80-100); RBC Red Blood Cell Count 2.33 M/uL (4.33-5.43)
[2022-08-08 05:40] LABS: Albumin 1.5 g/dL (3.4-5.0); Bilirubin Total 0.6 mg/dL (0.2-1.0); Potassium 3.7 mmol/L (3.5-5.1); Protein, Total 6.4 g/dL (6.4-8.2)
[2022-08-08 05:57] LABS: Hematocrit 20.3 % (39.6-49.0)
[2022-08-08 06:48] LABS: Blood Morphology Comment NOT SEEN (NOT SEEN); Platelet Estimate ADEQ; White Blood Cell Scan OK (OK)
[2022-08-08 07:29] LABS: Protime INR 1.74
[2022-08-08] MEDS ORDERED: Phenylephrine HCl 10 MG/ML 1 ML VIAL ONE (07:31)
[2022-08-08] MEDS ORDERED: MIDAZOLAM HCL 2 MG/2 ML INJ ONE (07:31)
[2022-08-08] MEDS ORDERED: NS 0.9% VIAL 10 ML ONE (07:31)
[2022-08-08] MEDS ORDERED: EPHEDRINE SULF 50 MG/ML VIAL ONE (07:31)
[2022-08-08] MEDS ORDERED: propofoL 200 MG/20 ML VIAL IV ONE ×2 (07:31)
[2022-08-08] MEDS ORDERED: EPINEPHRINE/PF 1 MG/ML AMP ONE (07:40)
[2022-08-08] MEDS ORDERED: NA CHLORIDE 0.9% 250 ML ONE (08:02)
--- NOTE | 2022-08-08 08:13 | P.PN ---
Subjective Date of Service: 08/08/22 Primary Care Provider: Orlin Chief Complaint: atrial fib. Subjective: No new changes patient being prepped, for colonoscopy Review of Systems 10-point ROS is otherwise unremarkable Physical Examination - Vital Signs Temperature: 97.3 F Blood Pressure: 105/55 Pulse: 96 Respirations: 20 Pulse Ox (%): 100 - Physical Exam General: Alert, In no apparent distress HEENT: Atraumatic, PERRLA, EOMI Neck: Supple, JVD not distended Respiratory: Clear to auscultation bilaterally, Normal air movement Cardiovascular: Regular rate/rhythm, Normal S1 S2 Gastrointestinal: Normal bowel sounds, No tenderness Musculoskeletal: No tenderness Integumentary: No rashes Neurological: Normal speech, Normal tone, Normal affect Lymphatics: No axilla or inguinal lymphadenopathy Assessment And Plan - Current Problems (Diagnosis) (1) GI bleed Current Visit: Yes Status: Acute Plan: once he is stable from a cardiac standpoint we can scope him with Dr. Ponce. Patient agreed to this. 08/08 patient hb fell to 6.9. Will transfuse with one units. He is getting scoped by Dr. Ponce this morning Qualifiers: GI bleed type/associated pathology: melena Qualified Code(s): K92.1 - Melena (2) Atrial fibrillation with RVR Current Visit: Yes Status: Acute Plan: Patient is better controlled today. He has been started on metoprolol. Q8hrs. Possible cardioversion. 08/07 Heart rate better controlled. Will discuss with Dr. Ar villarreal we can take him for an egd. (3) Diabetes 1.5, managed as type 2 Current Visit: No Status: Chronic Plan: will start him on sliding scale insulin. Get nutrition. To access the patient Start him on Jevity for now (4) HTN (hypertension) Current Visit: No Status: Acute Plan: restart his lisinopril. Adjust as necessary Qualifiers: Hypertension type: primary hypertension Qualified Code(s): I10 - Essential (primary) hypertension (5) Tracheostomy care Current Visit: No Status: Acute Plan: We may have Dr. Navarrete take a look at him on Saturday. However at this time. The trach seems to be functional and positioned well. (6) ALS (amyotrophic lateral sclerosis) Current Visit: No Status: Chronic Plan: Patient is able to move his head. he is alert. Not much movement in his limbs. Will keep him on Fall precautions. Most likely will be discharged to hospice on Saturday. Discharge Plan: Home Plan to discharge in: 48 Hours - Code Status/Comfort Care Code Status Assessed: No Physician Review: Patient Assessed, Agree with Above Assessment and Plan Critical Care: Yes Time Spent Managing PTS Care (In Minutes): 20
[2022-08-08] MEDS ORDERED: ESMOLOL 100 MG/10 ML VIAL IV ONE (08:15)
[2022-08-08] MEDS ORDERED: ATROPINE SULF 1 MG/10 ML SYR IV ONE (08:39)
--- NOTE | 2022-08-08 08:59 | CON ---
Date of Consultation: 08/05/2022 Brief History Of Present Illness: Patient is a 57-year-old male with a history of ALS with a tracheo stomy and PEG tube in place, who was admitted to the hospital with worsening respiratory status and a nemia. He was noted to have atrial fibrillation with rapid ventricular response after being evaluate d in the hospital. He had been transfused a unit of PRBC, but continues to have history of chronic a nemia. Since being in the hospital, he has had atrial fibrillation with rapid ventricular response, controlled with metoprolol and amiodarone. Dr. Joyner has managed his cardiovascular condition and h as approved proceeding with EGD, colonoscopy for anemia workup after his rate control is sustained, w [facility] he is going to manage. Past Medical History: Hypertension, hyperlipidemia, diabetes, ankle fracture, pancreatitis, ALS. He has had ankle surgery, tracheostomy, and PEG tube placement. He does have an alcohol history. Allergies: IBUPROFEN, WHICH CAUSES HIVES. Home Medications: Include aspirin, Fish Oil, metformin, Centrum, gemfibrozil, lisinopril, Xarelto, C oreg, and he is fed via tube feeds. Physical Examination: Vital Signs: At time of my examination, he was tachycardic to the 120s. His pressure was 124/88, re spiratory rate 18 on ventilator, temperature 98.4. He had no pain during my examination and in atria l flutter type pattern. General: He is awake and alert. He answers questions with mouthing with his lips appropriately and answers questions appropriately. Neck: He has a tracheostomy in place. His neck was supple without JVD. Chest: Expansion and excursion. Cardiovascular: Irregular rate, irregular rhythm as described consistent with atrial flutter with a rate of 120. Abdomen: Soft and PEG tube in place. Nontender, nondistended. Extremities: No clubbing, cyanosis, or edema. Skin: Warm and dry. Laboratory Data: Revealed a white blood cell count of 18.6. His hemoglobin was 7.9 over hematocrit 23.4, platelet count was 304. His sodium 137, potassium 3.8, chloride 106, carbon dioxide 25, BUN 15 , creatinine 0.6. Total bilirubin 0.8, AST 13, ALT 19, alk phos 154. Assessment And Plan: This is a 57-year-old male who presents with multiple medical problems and point of care technician teresa anemia, possibly with an acute component. No obvious source of bleeding has been appreciated. H owever, his Gastroccult was positive, but no katelin blood was noted on any of his upper or lower GI tr act via lavage, but Gastroccult was positive on the test card. However, patient does have a PEG tube in place. 1.Recommend holding any anticoagulation at this time. 2.Continue medical management per Dr. Joyner. We will hold off on any procedures including EGD, col onoscopy until Dr. Joyner converts patient to a more hemodynamically stable position and the patient has been cleared for procedure with EGD, colonoscopy by Dr. Joyner. Await his recommendations regard ing this. 3.Continue medical management per Dr. Ordaz. 4.I recommend PPI drip in the interim. 5.Serial exams. 6.Transfusion of blood products p.r.n. 7.I have explained the risks, benefits, and alternatives to the patient. He agrees to proceed as in dicated. SHADI/DAMON Voice ID: [id number] Report ID: [id number]
[2022-08-08] MEDS ORDERED: POTASSIUM 25 MEQ EFFERV TAB PO ONE (09:00)
[2022-08-08] MEDS: lisinopriL 5 MG TAB PO SCH (09:42)
[2022-08-08] MEDS: AMIODARONE HCL 200 MG TAB FT SCH ×2 (09:42→21:02)
[2022-08-08] MEDS: VITAL AF 1,000 ML BOT RTH SCH (12:32)
[2022-08-08 15:45] LABS: Hematocrit 26.1 % (39.6-49.0)
[2022-08-08] MEDS: MORPHINE 2 MG/ML SYR IV PRN (21:07)
[2022-08-09] MEDS: METOPROLOL TAR 50 MG TAB PO SCH ×3 (00:24→17:40)
--- NOTE | 2022-08-09 08:12 | P.PN ---
Subjective Date of Service: 08/09/22 Primary Care Provider: Orlin Chief Complaint: atrial fib. Patient is stable He states he wants to go home with hospice. Review of Systems 10-point ROS is otherwise unremarkable Physical Examination - Vital Signs Temperature: 97.1 F Blood Pressure: 134/83 Pulse: 116 Respirations: 20 Pulse Ox (%): 96 - Physical Exam General: Alert, In no apparent distress HEENT: Atraumatic, PERRLA, EOMI Neck: Supple, JVD not distended Respiratory: Clear to auscultation bilaterally, Normal air movement Cardiovascular: Normal S1 S2, Irregular heart rate/rhythm (tachycardia) Gastrointestinal: Normal bowel sounds, No tenderness Musculoskeletal: No tenderness Integumentary: No rashes Neurological: Normal speech, Normal tone, Normal affect Lymphatics: No axilla or inguinal lymphadenopathy - Studies Microbiology Data (last 24 hrs): 08/03/22 21:14 Blood - Blood Aerobic Blood Culture - Final No growth in 5 days. 08/03/22 21:14 Blood - Blood Anaerobic Blood Culture - Final No growth in 5 days. 08/03/22 21:05 Blood - Blood Aerobic Blood Culture - Final No growth in 5 days. 08/03/22 21:05 Blood - Blood Anaerobic Blood Culture - Final No growth in 5 days. Assessment And Plan - Current Problems (Diagnosis) (1) GI bleed Current Visit: Yes Status: Acute Plan: once he is stable from a cardiac standpoint we can scope him with Dr. Ponce. Patient agreed to this. 08/09 No active bleed. Will keep him on protonix Qualifiers: GI bleed type/associated pathology: melena Qualified Code(s): K92.1 - Melena (2) Atrial fibrillation with RVR Current Visit: Yes Status: Acute Plan: Patient is better controlled today. He has been started on metoprolol. Q8hrs. Possible cardioversion. 08/08 Patient has been in the 100s consistently. Has bradycardia with higher doses. We may have to live with this heart rate. (3) Diabetes 1.5, managed as type 2 Current Visit: No Status: Chronic Plan: will start him on sliding scale insulin. Get nutrition. To access the patient Start him on Jevity for now (4) HTN (hypertension) Current Visit: No Status: Acute Plan: restart his lisinopril. Adjust as necessary Qualifiers: Hypertension type: primary hypertension Qualified Code(s): I10 - Essential (primary) hypertension (5) Tracheostomy care Current Visit: No Status: Acute Plan: We may have Dr. Navarrete take a look at him on Saturday. However at this time. The trach seems to be functional and positioned well. (6) ALS (amyotrophic lateral sclerosis) Current Visit: No Status: Chronic Plan: Patient is able to move his head. he is alert. Not much movement in his limbs. Will keep him on Fall precautions. Most likely will be discharged to hospice on Saturday. (7) End of life care Current Visit: Yes Status: Acute Plan: Will have dialysis social worker contact A [facility] hospice. He was previously enrolled Discharge Plan: Home Plan to discharge in: 24 Hours - Code Status/Comfort Care Code Status Assessed: No Physician Review: Patient Assessed, Agree with Above Assessment and Plan Critical Care: Yes Time Spent Managing PTS Care (In Minutes): 20
[2022-08-09] MEDS: AMIODARONE HCL 200 MG TAB FT SCH ×2 (08:38→20:24)
[2022-08-09] MEDS: lisinopriL 5 MG TAB PO SCH (08:38)
[2022-08-09] MEDS: Levofloxacin500mg IV 500 MG/100 ML BAG IV SCH (11:00)
[2022-08-09] MEDS: PANTOPRAZOLE INJ 80 MG in NA CHLORIDE 0.9% 250 ML IV SCH ×2 (11:34→20:24)
[2022-08-09] MEDS ORDERED: METOPROLOL TARTRATE 5 MG/5 ML INJ IV ONE (14:23)
[2022-08-09] MEDS ORDERED: dilTIAZem HCL 25 MG/5 ML VIAL IV ONE ×2 (14:47→15:00)
[2022-08-09] MEDS ORDERED: DILTIAZEM INJ 125 MG in NA CHLORIDE 0.9% 100 ML IV SCH (15:00)
[2022-08-09] MEDS ORDERED: Nicardipine in Saline, Iso-Osm 20 MG/200 ML IV.SOLN. IV SCH (15:00)
--- NOTE | 2022-08-09 16:09 | PN ---
Date of Progress Note: 08/09/2022 Subjective: Seen by bedside. He was in atrial flutter with rapid ventricular response. Heart rate in 140s. Apparently, there was a plan for the patient to go on hospice care and he declined cardiove rsion, loaded with amiodarone. He is on amiodarone via PEG tube now. Review of Systems: No chest pain, shortness of breath, orthopnea, cough. No nausea, vomiting, diarrhea. All other syst ems reviewed and they were negative. Physical Examination: Vital Signs: Reviewed. Head and Neck: Pupils are equal, reactive to light. Intact eye movements. No JVD. No cervical lym phadenopathy. Neck is supple. Thyroid is not enlarged. Lungs: Decreased breathing sounds and he is trached. No accessory muscle use or muscle retraction. Heart: Irregularly irregular. No extra sounds. Abdomen: Soft, nontender. Bowel sounds positive. No organomegaly. No masses or hernia. No rigidi ty or rebound. Extremities: No clubbing or cyanosis. Intact pulses. Skin: No rash. Neurologic: Alert, awake. No acute focal deficits appreciated. Investigations: Labs were reviewed. Assessment And Recommendations: 1.Atrial flutter with rapid ventricular response. Heart rate is back up now. We will give 10 mg of Cardizem IV and then put him on Cardizem drip. Once the heart rate is controlled, we will switch it to oral. Continue metoprolol and amiodarone. The patient refused cardioversion. Also continue ant icoagulation if there is no contraindication from the GI standpoint. 2.Hypertension. Blood pressure is elevated. Starting Cardizem as above. SR/MODL Voice ID: [id number] Report ID: [id number]
[2022-08-09] MEDS: MORPHINE 2 MG/ML SYR IV PRN (22:00)
[2022-08-09] MEDS: DILTIAZEM HCL 60 MG TAB PO SCH (23:10)
[2022-08-10] MEDS: METOPROLOL TAR 50 MG TAB PO SCH ×3 (01:05→18:00)
[2022-08-10] MEDS: PANTOPRAZOLE INJ 80 MG in NA CHLORIDE 0.9% 250 ML IV SCH ×3 (04:00→21:01)
[2022-08-10 05:05] LABS: Absolute Lymphocytes (CBC) 1.4 K/uL (0.7-4.9); Hematocrit 25.4 % (39.6-49.0); Lymphocytes % 9.6 % (15.3-44.8); MCV 87.7 fL (80-100); MPV 7.8 fL (7.6-11.3)
[2022-08-10 05:18] LABS: Potassium 3.7 mmol/L (3.5-5.1)
[2022-08-10] MEDS ORDERED: MORPHINE 2 MG/ML SYR ONE (05:57)
[2022-08-10] MEDS: MORPHINE 2 MG/ML SYR IV PRN (06:00)
[2022-08-10] MEDS: DILTIAZEM HCL 60 MG TAB PO SCH ×3 (06:00→23:12)
--- NOTE | 2022-08-10 07:26 | P.PN ---
Subjective Date of Service: 08/10/22 Primary Care Provider: Orlin Chief Complaint: atrial fib. Patient was tachycardic yesterday. Was started on Cardizem drip. Is hypotensive and normal pulse this morning Review of Systems 10-point ROS is otherwise unremarkable Physical Examination - Vital Signs Temperature: 97.5 F Blood Pressure: 119/69 Pulse: 102 Respirations: 20 Pulse Ox (%): 96 - Physical Exam General: Alert, In no apparent distress HEENT: Atraumatic, PERRLA, EOMI Neck: Supple, JVD not distended Respiratory: Clear to auscultation bilaterally, Normal air movement Cardiovascular: Regular rate/rhythm, Normal S1 S2 Gastrointestinal: Normal bowel sounds, No tenderness Musculoskeletal: No tenderness Integumentary: No rashes Neurological: Normal speech, Normal tone, Normal affect Lymphatics: No axilla or inguinal lymphadenopathy Assessment And Plan - Current Problems (Diagnosis) (1) Atrial fibrillation with RVR Current Visit: Yes Status: Acute Plan: Patient is better controlled today. He has been started on metoprolol. Q8hrs. Possible cardioversion. 08/10. Was started on oral and iv cardizem yesterday. With metoprolol. Will hold the IV cardizem. See if he stays stable for now. Will keep him one more day. (2) Diabetes 1.5, managed as type 2 Current Visit: No Status: Chronic Plan: will start him on sliding scale insulin. Get nutrition. To access the patient Start him on Jevity for now (3) HTN (hypertension) Current Visit: No Status: Acute Plan: restart his lisinopril. Adjust as necessary Qualifiers: Hypertension type: primary hypertension Qualified Code(s): I10 - Essential (primary) hypertension (4) Tracheostomy care Current Visit: No Status: Acute Plan: We may have Dr. Navarrete take a look at him on Saturday. However at this time. The trach seems to be functional and positioned well. (5) ALS (amyotrophic lateral sclerosis) Current Visit: No Status: Chronic Plan: Patient is able to move his head. he is alert. Not much movement in his limbs. Will keep him on Fall precautions. Most likely will be discharged to hospice on Saturday. (6) End of life care Current Visit: Yes Status: Acute Plan: Will have oncology social work contact A [facility] hospice. He was previously enrolled 08/10/22 Patient is most likely to reenter hospice on discharge. [facility] is working with the patient (7) GI bleed Current Visit: Yes Status: Acute Plan: once he is stable from a cardiac standpoint we can scope him with Dr. Ponce. Patient agreed to this. 08/09 No active bleed. Will keep him on protonix Qualifiers: GI bleed type/associated pathology: melena Qualified Code(s): K92.1 - Agapito na Discharge Plan: Home Plan to discharge in: 24 Hours - Code Status/Comfort Care Code Status Assessed: No Physician Review: Patient Assessed, Agree with Above Assessment and Plan Critical Care: Yes Time Spent Managing PTS Care (In Minutes): 25
[2022-08-10] MEDS: AMIODARONE HCL 200 MG TAB FT SCH ×2 (08:54→21:16)
[2022-08-10] MEDS: VITAL AF 1,000 ML BOT RTH SCH (08:56)
[2022-08-10] MEDS ORDERED: POTASSIUM 25 MEQ EFFERV TAB PO ONE (09:00)
--- NOTE | 2022-08-10 10:00 | P.PN ---
Subjective Date of Service: 08/10/22 Primary Care Provider: Orlin Chief Complaint: atrial fib. Subjective: Improving (Patient had no anemia or acute events) Physical Examination - Vital Signs Temperature: 97.1 F Blood Pressure: 93/63 Pulse: 88 Respirations: 14 Pulse Ox (%): 98 - Physical Exam General: Alert, In no apparent distress, Cooperative Respiratory: Other (trach - ventilated) Cardiovascular: Irregular heart rate/rhythm Gastrointestinal: Soft and benign, Non-distended, No tenderness, No masses, No rebound, No guarding Assessment And Plan - Current Problems (Diagnosis) (1) Anemia Current Visit: Yes Status: Acute Plan: Patient underwent a upper gastrointestinal endoscopy which was nondiagnostic for any evidence of acute upper gastrointestinal bleeding and attempt was made to perform a colonoscopy however due to patient having significant bradycardia it was an incomplete colonoscopy however no blood was appreciated during the procedure of the examined portions to the colon all the way to the right colon patient remains stable from a surgical standpoint without any evidence of ongoing blood loss as such I recommend to continue medical management continue anemia work-up and I will remain available should the patient be optimized from a cardiovascular standpoint in preparation for a potential additional colonoscopy on an elective basis Physician Review: Patient Assessed, Agree with Above Assessment and Plan
[2022-08-10] MEDS ORDERED: HEPARIN 500 UNIT/5 ML SYR IV ONE (16:55)
[2022-08-10] MEDS: MELATONIN 5 MG TABLET PO SCH (21:16)
[2022-08-11] MEDS: METOPROLOL TAR 50 MG TAB PO SCH ×3 (00:45→15:46)
[2022-08-11 05:14] VITALS: BMI 18.5
[2022-08-11 06:16] LABS: Absolute Lymphocytes (CBC) 1.4 K/uL (0.7-4.9); Hematocrit 23.6 % (39.6-49.0); Lymphocytes % 10.4 % (15.3-44.8); MCV 89.1 fL (80-100); MPV 7.8 fL (7.6-11.3); RBC Red Blood Cell Count 2.65 M/uL (4.33-5.43)
[2022-08-11 06:32] LABS: Albumin 1.6 g/dL (3.4-5.0); Bilirubin Total 0.7 mg/dL (0.2-1.0); Potassium 3.9 mmol/L (3.5-5.1); Protein, Total 6.7 g/dL (6.4-8.2)
[2022-08-11] MEDS: DILTIAZEM HCL 60 MG TAB PO SCH ×3 (07:20→23:04)
[2022-08-11] MEDS ORDERED: POTASSIUM 25 MEQ EFFERV TAB PO ONE (09:00)
[2022-08-11] MEDS: AMIODARONE HCL 200 MG TAB FT SCH ×2 (09:02→19:54)
[2022-08-11] MEDS: PANTOPRAZOLE INJ 80 MG in NA CHLORIDE 0.9% 250 ML IV SCH ×2 (09:40→18:58)
--- NOTE | 2022-08-11 11:11 | P.PN ---
Subjective Date of Service: 08/11/22 Primary Care Provider: Orlin Chief Complaint: atrial fib. Subjective: Improving (Patient has not required any transfusions since endoscopy) Physical Examination - Vital Signs Temperature: 98.4 F Blood Pressure: 128/73 Pulse: 72 Respirations: 15 Pulse Ox (%): 99 - Physical Exam General: Alert, In no apparent distress, Cooperative Respiratory: Other (vent) Cardiovascular: Irregular heart rate/rhythm Gastrointestinal: Soft and benign, Non-distended (PEG in place) Assessment And Plan - Current Problems (Diagnosis) (1) Anemia Current Visit: Yes Status: Acute Plan: Patient underwent a upper gastrointestinal endoscopy which was nondiagnostic for any evidence of acute upper gastrointestinal bleeding and attempt was made to perform a colonoscopy however due to patient having significant bradycardia it was an incomplete colonoscopy however no blood was appreciated during the procedure of the examined portions to the colon all the way to the right colon patient remains stable from a surgical standpoint without any evidence of ongoing blood loss as such I recommend to continue medical management continue anemia work-up and I will remain available should the patient be optimized from a cardiovascular standpoint in preparation for a potential additional colonoscopy on an elective basis -I have evaluated the patient and noted that he has not had any transfusion requirements or had any evidence of gastrointestinal bleeding since the day of endoscopy on 08/08/2022 and as such I will sign off at this time and have recommended an elective colonoscopy when his cardiovascular status is improved as he continues to have cardiovascular irregularities and arrhythmias therefore I recommend cardiovascular management as his top priority at as there is no evidence of acute gastrointestinal bleed at this time - will sign off, please call for any issues Physician Review: Patient Assessed, Agree with Above Assessment and Plan
--- NOTE | 2022-08-11 11:22 | P.PN ---
Subjective Date of Service: 08/11/22 Primary Care Provider: Orlin Chief Complaint: atrial fib. Patient was tachycardic yesterday. Was started on Cardizem drip. Is hypotensive and normal pulse this morning Review of Systems 10-point ROS is otherwise unremarkable Physical Examination - Vital Signs Temperature: 98.4 F Blood Pressure: 128/73 Pulse: 72 Respirations: 15 Pulse Ox (%): 99 - Physical Exam General: Alert, In no apparent distress HEENT: Atraumatic, PERRLA, EOMI Neck: Supple, JVD not distended Respiratory: Clear to auscultation bilaterally, Normal air movement Cardiovascular: Regular rate/rhythm, Normal S1 S2 Gastrointestinal: Normal bowel sounds, No tenderness Musculoskeletal: No tenderness Integumentary: No rashes Neurological: Normal speech, Normal tone, Normal affect Lymphatics: No axilla or inguinal lymphadenopathy Assessment And Plan - Current Problems (Diagnosis) (1) End of life care Current Visit: Yes Status: Acute Plan: Will have social insurance specialist contact A [facility] hospice. He was previously enrolled 08/11/22 Patient wants to remain full code and go home with hospice. Had a 30min conversation with patient, hospice worker and case packer and sealer. Will not be able to get him his home vent till Saturday. All parties in Agreement (2) Atrial fibrillation with RVR Current Visit: Yes Status: Acute Plan: Patient is better controlled today. He has been started on metoprolol. Q8hrs. Possible cardioversion. 08/10. Was started on oral and iv cardizem yesterday. With metoprolol. Will hold the IV cardizem. See if he stays stable for now. Will keep him one more day. (3) Diabetes 1.5, managed as type 2 Current Visit: No Status: Chronic Plan: will start him on sliding scale insulin. Get nutrition. To access the patient Start him on Jevity for now (4) HTN (hypertension) Current Visit: No Status: Acute Plan: restart his lisinopril. Adjust as necessary Qualifiers: Hypertension type: primary hypertension Qualified Code(s): I10 - Essential (primary) hypertension (5) Tracheostomy care Current Visit: No Status: Acute Plan: We may have Dr. Navarrete take a look at him on Saturday. However at this time. The trach seems to be functional and positioned well. (6) ALS (amyotrophic lateral sclerosis) Current Visit: No Status: Chronic Plan: Patient is able to move his head. he is alert. Not much movement in his limbs. Will keep him on Fall precautions. Most likely will be discharged to hospice on Saturday. (7) GI bleed Current Visit: Yes Status: Acute Plan: once he is stable from a cardiac standpoint we can scope him with Dr. Ponce. Patient agreed to this. 08/09 No active bleed. Will keep him on protonix Qualifiers: GI bleed type/associated pathology: melena Qualified Code(s): K92.1 - Melena Discharge Plan: Home Plan to discharge in: 48 Hours - Code Status/Comfort Care Code Status Assessed: Yes (wishes to remain full code) Physician Review: Patient Assessed, Agree with Above Assessment and Plan Critical Care: Yes Time Spent Managing PTS Care (In Minutes): 30
[2022-08-11] MEDS: MELATONIN 5 MG TABLET PO SCH (19:55)
[2022-08-12] MEDS: METOPROLOL TAR 50 MG TAB PO SCH ×3 (00:48→15:55)
[2022-08-12] MEDS: PANTOPRAZOLE INJ 80 MG in NA CHLORIDE 0.9% 250 ML IV SCH ×3 (02:19→20:57)
[2022-08-12 05:15] LABS: Absolute Lymphocytes (CBC) 1.4 K/uL (0.7-4.9); Hematocrit 23.3 % (39.6-49.0); Lymphocytes % 10.9 % (15.3-44.8); MCV 87.8 fL (80-100); MPV 7.7 fL (7.6-11.3); RBC Red Blood Cell Count 2.66 M/uL (4.33-5.43)
[2022-08-12 05:35] LABS: Albumin 1.8 g/dL (3.4-5.0); Bilirubin Total 0.8 mg/dL (0.2-1.0); Potassium 3.6 mmol/L (3.5-5.1); Protein, Total 6.9 g/dL (6.4-8.2)
[2022-08-12] MEDS: DILTIAZEM HCL 60 MG TAB PO SCH ×3 (07:55→23:02)
[2022-08-12] MEDS: AMIODARONE HCL 200 MG TAB FT SCH ×2 (07:55→20:56)
--- NOTE | 2022-08-12 10:27 | P.PN ---
Subjective Date of Service: 08/12/22 Primary Care Provider: Orlin Chief Complaint: atrial fib. Subjective: No new changes Patient was tachycardic yesterday. Was started on Cardizem drip. Is hypotensive and normal pulse this morning Review of Systems 10-point ROS is otherwise unremarkable Physical Examination - Vital Signs Temperature: 98.4 F Blood Pressure: 117/65 Pulse: 62 Respirations: 15 Pulse Ox (%): 99 - Physical Exam General: Alert, In no apparent distress HEENT: Atraumatic, PERRLA, EOMI Neck: Supple, JVD not distended Respiratory: Clear to auscultation bilaterally, Normal air movement Cardiovascular: Regular rate/rhythm, Normal S1 S2 Gastrointestinal: Normal bowel sounds, No tenderness Musculoskeletal: No tenderness Integumentary: No rashes Neurological: Normal speech, Normal tone, Normal affect Lymphatics: No axilla or inguinal lymphadenopathy Assessment And Plan - Current Problems (Diagnosis) (1) End of life care Current Visit: Yes Status: Acute Plan: Will have social services designee contact A [facility] hospice. He was previously enrolled 08/12 plans for discharge tomorrow (2) Atrial fibrillation with RVR Current Visit: Yes Status: Acute Plan: Patient is better controlled today. He has been started on metoprolol. Q8hrs. Possible cardioversion. 08/10. Was started on oral and iv cardizem yesterday. With metoprolol. Will hold the IV cardizem. See if he stays stable for now. Will keep him one more day. (3) Diabetes 1.5, managed as type 2 Current Visit: No Status: Chronic Plan: will start him on sliding scale insulin. Get nutrition. To access the patient Start him on Jevity for now (4) HTN (hypertension) Current Visit: No Status: Acute Plan: restart his lisinopril. Adjust as necessary Qualifiers: Hypertension type: primary hypertension Qualified Code(s): I10 - Essential (primary) hypertension (5) Tracheostomy care Current Visit: No Status: Acute Plan: We may have Dr. Navarrete take a look at him on Saturday. However at this time. The trach seems to be functional and positioned well. (6) ALS (amyotrophic lateral sclerosis) Current Visit: No Status: Chronic Plan: Patient is able to move his head. he is alert. Not much movement in his limbs. Will keep him on Fall precautions. Most likely will be discharged to hospice on Saturday. (7) GI bleed Current Visit: Yes Status: Acute Plan: once he is stable from a cardiac standpoint we can scope him with Dr. Ponce. Patient agreed to this. 08/09 No active bleed. Will keep him on protonix Qualifiers: GI bleed type/associated pathology: melena Qualified Code(s): K92.1 - Melena Discharge Plan: Home Plan to discharge in: 24 Hours - Code Status/Comfort Care Code Status Assessed: No Physician Review: Patient Assessed, Agree with Above Assessment and Plan Critical Care: Yes Time Spent Managing PTS Care (In Minutes): 20
[2022-08-12] MEDS ORDERED: POTASSIUM 25 MEQ EFFERV TAB FT ONE (14:12)
[2022-08-12] MEDS: MORPHINE 2 MG/ML SYR IV PRN (17:08)
[2022-08-12] MEDS: MELATONIN 5 MG TABLET PO SCH (20:56)
[2022-08-13] MEDS: METOPROLOL TAR 50 MG TAB PO SCH ×2 (01:00→09:20)
[2022-08-13 04:48] LABS: Absolute Lymphocytes (CBC) 1.3 K/uL (0.7-4.9); Hematocrit 25.3 % (39.6-49.0); Lymphocytes % 9.3 % (15.3-44.8); MPV 7.4 fL (7.6-11.3); RBC Red Blood Cell Count 2.87 M/uL (4.33-5.43)
[2022-08-13] MEDS: VITAL AF 1,000 ML BOT RTH SCH (05:00)
[2022-08-13 05:08] LABS: Albumin 1.8 g/dL (3.4-5.0); Bilirubin Total 0.7 mg/dL (0.2-1.0); Potassium 3.8 mmol/L (3.5-5.1); Protein, Total 7.3 g/dL (6.4-8.2)
[2022-08-13 05:33] LABS: Blood Morphology Comment NOT SEEN (NOT SEEN); Platelet Estimate ADEQ
[2022-08-13] MEDS: DILTIAZEM HCL 60 MG TAB PO SCH ×2 (06:20→14:15)
[2022-08-13] MEDS: MORPHINE 2 MG/ML SYR IV PRN ×2 (06:21→14:18)
[2022-08-13] MEDS ORDERED: POTASSIUM 25 MEQ EFFERV TAB PO ONE (07:49)
[2022-08-13 07:56] VITALS: O2SAT 99
--- NOTE | 2022-08-13 08:13 | P.DS ---
Admission Date: 08/04/22 Discharge Date: 08/13/22 Primary Care Provider: Orlin Disposition: HOSPICE-HOME Reason for Admission: atrial fib. - Problems (1) End of life care Current Visit: Yes Status: Acute (2) Atrial fibrillation with RVR Current Visit: Yes Status: Acute (3) Diabetes 1.5, managed as type 2 Current Visit: No Status: Chronic (4) HTN (hypertension) Current Visit: No Status: Acute Qualifiers: Hypertension type: primary hypertension Qualified Code(s): I10 - Essential (primary) hypertension (5) Tracheostomy care Current Visit: No Status: Acute (6) ALS (amyotrophic lateral sclerosis) Current Visit: No Status: Chronic (7) GI bleed Current Visit: Yes Status: Acute Qualifiers: GI bleed type/associated pathology: melena Qualified Code(s): K92.1 - Melena Brief History of Present Illness: Patient who was recently admitted for afib and respiratory failure. He was sent to [facility] after the admission in Jun. The patient was sent home with hospice. . However his home vent and meds had not been delivered. He was brought to the emergency room and again found to be in Afib. The patient was also found to have an elevated wbc. He had some possible pneumonia or atelectasis in his lung basis. During the night his hb dropped below 7 and he received a unit of prbc. He has a history of chronic anemia. The patient history is difficult as he has ALS. Has a tracheostomy and can not speak. Most communication is through an attempt to read his lips. Which is difficult Hospital Course: Patient was admitted for afib and gi bleed He was controlled medically. Mayra schmitz refused cardioversion. He wanted after he was medically controlled. He had multiple episodes of rvr. However was able to be controlled with medications. Morphine, cardizem and metoprolol. He did have an episode this morning. However he is stable now and still wishes to go home. The patient unfortunately seems to be at his baseline. He is staying a full code. Going home with [facility]. Most likely will of an arrythmia. However when is a mystery. Would not recommend a defibrillator for this patient. He has a poor quality of life. Most likely will not give him significant improvement in mortality. Definitely no improvement of quality of life. He had a scope with Dr. Ponce. Was not able to get a complete colonoscopy. Due to bradycardia and hypotension. EGD was normal. Will discharge the patient home. Thank you for allowing me to take part in his care. Vital Signs/Physical Exam: Temp Pulse Resp BP Pulse Ox 96.8 F 142 H 20 176/111 H 100 08/13/22 04:00 08/13/22 06:20 08/13/22 06:51 08/13/22 06:20 08/13/22 06:51 General: Alert, In no apparent distress HEENT: Atraumatic, PERRLA, EOMI Neck: Supple, JVD not distended Respiratory: Clear to auscultation bilaterally, Normal air movement Cardiovascular: Regular rate/rhythm, Normal S1 S2 Gastrointestinal: Normal bowel sounds, No tenderness Musculoskeletal: No tenderness Integumentary: No rashes Neurological: Normal speech, Normal tone, Normal affect Lymphatics: No axilla or inguinal lymphadenopathy Laboratory Data at Discharge: WBC 14.40 K/uL (4.3-10.9) H 08/13/22 04:34 Hgb 8.4 g/dL (13.6-17.9) L 08/13/22 04:34 Hct 25.3 % (39.6-49.0) L 08/13/22 04:34 Plt Count 324 K/uL (152-406) 08/13/22 04:34 PT 19.1 SECONDS (9.5-12.5) H 08/08/22 07:04 INR 1.74 08/08/22 07:04 APTT 38.6 SECONDS (24.3-36.9) H 08/08/22 07:04 Sodium 134 mmol/L (136-145) L 08/13/22 04:34 Potassium 3.8 mmol/L (3.5-5.1) 08/13/22 04:34 BUN 13 mg/dL (7-18) 08/13/22 04:34 Creatinine 0.39 mg/dL (0.55-1.3) L 08/13/22 04:34 Glucose 181 mg/dL (74-106) H 08/13/22 04:34 Total Bilirubin 0.7 mg/dL (0.2-1.0) 08/13/22 04:34 AST 9 U/L (15-37) L 08/13/22 04:34 ALT 13 U/L (12-78) 08/13/22 04:34 Alkaline Phosphatase 95 U/L (45-117) 08/13/22 04:34 Home Medications: Metformin HCl 1,000 mg PO BID 12/02/18 RX: Aspirin [Adult Low Dose Aspirin EC] 81 mg PO DAILY 12/02/18 gemfibroziL [Gemfibrozil] 600 mg PO BID 12/02/18 lisinopriL [Lisinopril] 20 mg PO DAILY 12/02/18 RX: carvediloL [Coreg*] 6.25 mg PO BID 90 Days #180 tab 12/03/18 Rivaroxaban [Xarelto] 20 mg PO DAILY 90 Days #90 tablet 12/03/18 RX: Baclofen 10 mg PO BID 08/05/22 RX: Gabapentin 300 mg PO DAILY 08/05/22 RX: Riluzole 50 mg PO BID 08/05/22 Pantoprazole Sodium [Protonix] 40 mg PO DAILY 90 Days #90 syr 08/12/22 RX: Amiodarone HCl [Cordarone*] 200 mg FT BID 90 Days #180 tab NS 08/12/22 RX: Diltiazem Tab [Cardizem Tab*] 30 mg PO Q8H 90 Days #270 tab NS 08/12/22 RX: Metoprolol Tartrate [Lopressor*] 50 mg PO Q8HR 90 Days #270 tab NS 08/12/22 New Medications: RX: Diltiazem Tab [Cardizem Tab*] 30 mg PO Q8H 90 Days #270 tab NS RX: Amiodarone HCl [Cordarone*] 200 mg FT BID 90 Days #180 tab NS RX: Metoprolol Tartrate [Lopressor*] 50 mg PO Q8HR 90 Days #270 tab NS Pantoprazole Sodium [Protonix] 40 mg PO DAILY 90 Days #90 syr Diet: peg feedin Followup: NONE,NONE [Primary Care Provider] - Sammy Ordaz MD [ACTIVE - CAN ADMIT] - 1-2 Weeks (can do a zoom visit. Please call the office top set this up [phone]) Physician Review: Patient Assessed, Agree with Above Assessment and Plan Time spent managing pt's care (in minutes): 35
--- NOTE | 2022-08-13 08:35 | RAD REPORT ---
EXAM DESCRIPTION: Dion Single View08/13/2022 6:59 am CLINICAL HISTORY: Shortness of breath COMPARISON: July 2028 FINDINGS: Moderate bilateral alveolar pulmonary opacities. This may represent pulmonary edema or pne [place] PICC line in place. Tracheostomy tube in good position Small to moderate right and small left pleural effusions. Normal heart size
[2022-08-13] MEDS: AMIODARONE HCL 200 MG TAB FT SCH (09:20)
[2022-08-13 09:26] VITALS: TEMP 97.3
[2022-08-13] MEDS: PANTOPRAZOLE INJ 80 MG in NA CHLORIDE 0.9% 250 ML IV SCH (11:44)
[2022-08-13 14:19] VITALS: BP 122/74
--- NOTE | 2022-08-14 10:09 | PN ---
Date of Progress Note: 08/13/2022 Subjective: Seen by bedside, doing well. Heart rate is below 100. Review of Systems: No reported chest, chest pain, shortness of breath, orthopnea, cough. No nausea, vomiting, diarrhea. All other systems reviewed and they were negative. Physical Examination: Vital Signs: Reviewed. Head and Neck: Pupils are equal, reactive to light. Intact eye movements. No JVD. No cervical lym phadenopathy. Neck is supple. Thyroid is not enlarged. Lungs: Clear to auscultation bilaterally. No rhonchi, wheezing, or crackles. Has tracheostomy. Abdomen: Soft, nontender. Bowel sounds positive. No organomegaly. No masses or hernia. No rigidi ty or rebound. Extremities: No clubbing or cyanosis. Intact pulses. Skin: No rash. Neurologic: Alert, awake. No acute focal deficits appreciated. Investigations: Labs were reviewed. Assessment And Recommendations: Atrial flutter. Rate is better now. Continue Cardizem, metoprolol, and amiodarone. Can go up on Cardizem 60 mg q.8 hours if rate control is not achieved with the curr ent regimen. The patient refused cardioversion and from the GI standpoint, it is possible to start E liquis 5 mg twice a day. SR/MODL Voice ID: [id number] Report ID: [id number]
--- NOTE | 2022-08-16 09:02 | ENDO RPT ---
[address], [address] EGD PROCEDURE REPORT EXAM DATE: 08/08/2022 PATIENT NAME: Beto Luevano MR#: [id number] BIRTHDATE: 1965 ATTENDING: Trey Ponce DR STATUS: outpatient SENIOR DIRECTOR MARKETING: Lashanda Fuller RN and Ty [facility] INDICATIONS: The patient is a 57 yr old Male here for an EGD due to anemia PROCEDURE PERFORMED: EGD with biopsy for H. pylori MEDICATIONS: Per Anesthesia. TOPICAL ANESTHETIC: none CONSENT: The patient understands the risks and benefits of the procedure and understands that these risks include, but are not limited to: sedation, allergic reaction, infection, perforation and/or bleeding. Alternative means of evaluation and treatment include, among others: physical exam, x-rays, and/or surgical intervention. The patient elects to proceed with this endoscopic procedure. DESCRIPTION OF PROCEDURE: During intra-op preparation period all mechanical medical equipment was checked for proper function. Hand hygiene and appropriate measures for infection prevention was taken. Procedure, possible complications, and alternatives including but not limited to the possibility of bleeding, perforation, tear, infection, sepsis, need for surgery, need for blood transfusion, and anesthesia related complications were explained to the patient. After the risks, benefits and alternatives of the procedure were thoroughly explained, Informed consent was verified, confirmed and timeout was successfully executed by the treatment team. The patient was placed in the left lateral position. The patient was anesthetized with topical anesthesia. Through the anesthetized oropharyngeal area, the scope was passed without any difficulty. The LOANER endoscope was introduced through the mouth and advanced to the second portion of the duodenum. PEG tube noted in place. The gastroscope was then slowly withdrawn and removed. Mild gastritis was found in the body and the antrum of the stomach. With standard forceps, a biopsy was obtained and sent to pathology. A biopsy for H. pylori was taken. Multiple biopsies were obtained and sent to pathology. ADVERSE EVENTS: There were no complications. IMPRESSIONS: 1. Mild gastritis was found in the body and the antrum of the stomach 2. PEG tube in place - no erosion or sequelae of bleeding 3. No Evidence of bleeding or sequelae of recent bleeding RECOMMENDATIONS: 1. acid suppression therapy 2. anti-reflux regimen 3. await biopsy results 4. avoid NSAIDS 5. begin PEG use in 3 hours 6. follow-up of helicobacter pylori status, treat if indicated 7. ICU monitoring REPEAT EXAM: Trey Ponce DR eSigned: Trey Ponce DR 08/16/2022 9:01 AM cc: CPT CODES: ICD9 CODES: PATIENT NAME: BassemBeto MR#: [id number]
== END 2022-08-13 15:55 | disposition hospice, home (50) | DRG 308 ==
LOC: ER 20:41 → ERHOLD 08-04 00:43 → 3RD-ICU 08-05 17:39
PROVIDERS: ADMIT Internal Medicine; ATTEND Internal Medicine
PROC: 5A1955Z Respiratory Ventilation, Greater than 96 Consecutive Hours (ICD-10-PCS; principal; 2022-08-04)
PROC: 0BH17EZ Insertion of Endotracheal Airway into Trachea, Via Natural or Artificial Opening (ICD-10-PCS; 2022-08-04)
PROC: 30233N1 Transfusion of Nonautologous Red Blood Cells into Peripheral Vein, Percutaneous Approach (ICD-10-PCS; 2022-08-04)
PROC: 0DB78ZX Excision of Stomach, Pylorus, Via Natural or Artificial Opening Endoscopic, Diagnostic (ICD-10-PCS; 2022-08-08)
PROC: 0DB98ZX Excision of Duodenum, Via Natural or Artificial Opening Endoscopic, Diagnostic (ICD-10-PCS; 2022-08-08)
DX: I48.0 Paroxysmal atrial fibrillation (principal); K29.71 Gastritis, unspecified, with bleeding; G12.21 Amyotrophic lateral sclerosis; J96.11 Chronic respiratory failure with hypoxia; R64 Cachexia; Z68.1 Body mass index [BMI] 19.9 or less, adult; I10 Essential (primary) hypertension; E11.9 Type 2 diabetes mellitus without complications; I48.92 Unspecified atrial flutter; D64.9 Anemia, unspecified; E78.5 Hyperlipidemia, unspecified; L89.152 Pressure ulcer of sacral region, stage 2; D72.829 Elevated white blood cell count, unspecified; R00.0 Tachycardia, unspecified; Z66 Do not resuscitate; Z51.5 Encounter for palliative care; Z93.0 Tracheostomy status; Z88.8 Allergy status to other drugs, medicaments and biological substances; Z79.82 Long term (current) use of aspirin; Z79.84 Long term (current) use of oral hypoglycemic drugs; Z74.01 Bed confinement status; Z79.01 Long term (current) use of anticoagulants; Z79.899 Other long term (current) drug therapy; Z20.822 Contact with and (suspected) exposure to COVID-19
CPT/HCPCS: 36415; 36430; 71045; 80048; 80053; 81003; 81015; 82947; 83605; 84132; 84439; 84443; 84484; 85014; 85018; 85025; 85610; 85730; 86850; 86900; 86901; 87040; 88305; 88312; 93005; 94002; 94003; 96361; 96374; 96375; 99291; 99292; A4216; C9113; J0171; J0282; J0360; J1642; J2250; J2270; J2370; J2704; J3010; J3480; J7030; J7040; J7050; J7060; J7614; P9016; U0003

== ENCOUNTER 2022-08-13 18:49 | Emergency (ER) | payer OTHER ==
--- OUTSIDE RECORDS SUMMARY | 2022-08-13 18:53 | XMS REPORT | Continuity of Care Document ---
:1965 Author Organization Formerly [facility] t Address [address] [place] [address] Care Team Providers Name Role Phone Orlin VO, Sammy Rose Primary Care Physician [phone] Sammy Ordaz Attending Clinician Unavailable Delfino Mcrae Attending Clinician NIXON QUEZADA Attending Clinician Unavailable NELLI MORRISSEY Attending Clinician Unavailable Problems Condition Condition Condition Status Onset Resolution Last Treating Co mments Source Name Details Category Date Date Treatment Clinician Date Spasticity Spasticity Disease Active 2019-0 M ethodi 10-29 st 00:00: Hospita 00 l Risk for Risk for Disease Active Metho di falls falls 10-29 st 00:00: Hospita 00 l Muscle Muscle Disease Active Methodi cramping cramping 8 st 00:00: Hospita 00 l Atrial Atrial Disease Active Methodi fibrillati fibrillati 05-06 st on on 00:00: Hospita 00 l Cervical Cervical Problem Resolve 2022 Memoria myelopathy myelopathy d 22:29:20 l (disorder) (disorder) He rmann Resolved Problem 2022 [facility] Diabetes Diabetes Problem Active 2022-07-20 [...] He rmann Active Problem 07/20/2022 [facility] Dysphagia Dysphagia Problem Active 2022-07-20 Memoria (disorder) (disorder) 23:13:29 l Active Rad Problem 07/20/2022 [facility] Dyspnea Dyspnea Problem Active 2022-07-20 Me moria (finding) (finding) 23:13:29 l Active Rad Problem 07/20/2022 [facility] Neuropathy Neuropathy Problem Active C ommon [facility] - [facility] 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, 1.5, 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 [facility] Essential Essential Problem Active Com mon hypertensi hypertensi Sp mendel on on - [facility] Pure Pure Problem Active Common hyperchole hyperchole Sp mendel sterolemia sterolemia - [facility] History of History of Problem Active C ommon alcoholism alcoholism Sp mendel - [facility] Atrial Atrial Diagnosis Active Common fibrillati fibrillati Sp mendel on, on, - [facility] unspecif[facility] un[facility]if[facility] d type d type [facility] Acute gout Acute gout Problem Active C ommon of right of right Spirit foot, foot, - [facility] unspecifie unspecifie St d cause d cause [facility] 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) [facility] ALS ALS Disease Active Methodi (amyotroph (amyotroph st ic lateral ic lateral Ho spita sclerosis) sclerosis) l Muscle Muscle Disease Active Methodi weakness weakness st Hospita l Allergies, Adverse Reactions, Alerts Allergy Allergy Status Severity Reaction(s) Onset Inactive Treating Comm ents Source Name Type Date Date Clinician Ibuprofe Propensi Active Hives Method i n ty to 05-05 st adverse 00:00: Hospita reaction 00 l s to drug Ibuprofe Adverse Active Info Not Commo n n Reaction Available Spiri t - [facility] ibuprofe ibuprofe Active Memori a n n l [place] Family History Family Member Diagnosis Comments Start Date Stop Date Source Natural father Diabetes [facility] Natural mother Hypertension [facility] Social History Social Habit Start Date Stop Date Quantity Comments Source History of Current smoker [facility] Alcohol intake 2020-09-08 2020-09-08 Current drinker [facility] 00:00:00 00:00:00 of alcohol Hospital (finding) Tobacco use and 2019-05-05 2019-05-05 Smokeless tobacco [facility] exposure 00:00:00 00:00:00 non-user Hospital Sex Assigned At [birth year] [facility] 00[facility] Smoking Status Start Date Stop Date Source Tobacco smoking status [facility] Ex-smoker 2019-05-05 00:00:00 2019-05-05 00:00:00 [facility] Medications Ordered Filled Start Stop Current Ordering Indication Dosage Frequency Signature Comments Components Source Medication Medication Date Date Medication? Clinician (SIG) Name Name gabapentin Yes = 1 cap, Mem oria 300 mg oral 3-01 PO, l capsule 23:26: Bedtime, # Herm blanca 00 30 unknown unit, 6 Refill(s), Pharmacy: [id number], 162.56, cm, 01/19/21 14:28:00 CDT, Height, 76.364, kg, 01/19/21 14:28:00 CDT, Weight gabapentin Yes = 1 cap, Mem oria 300 mg oral 3-01 PO, l capsule 23:26: Bedtime, # Herm blanca 00 30 unknown unit, 6 Refill(s), Pharmacy: [id number], 162.56, cm, 01/19/21 14:28:00 CDT, Height, 76.364, kg, 01/19/21 14:28:00 CDT, Weight gabapentin Yes 300 mg = 1 M emoria 300 MG Oral 4-15 cap, PO, l Capsule 19:55: Bedtime, # Herm blanca 00 30 cap, 6 Refill(s), Pharmacy: [id number], 162.56, cm, 01/19/21 14:28:00 CDT, Height, 76.364, kg, 01/19/21 14:28:00 CDT, Weight gabapentin Yes 300 mg = 1 M emoria 300 MG Oral 4-15 cap, PO, l Capsule 19:55: Bedtime, # Herm blanca 00 30 cap, 6 Refill(s), Pharmacy: [id number], 162.56, cm, 01/19/21 14:28:00 CDT, Height, 76.364, kg, 01/19/21 14:28:00 CDT, Weight gabapentin 2020-0 Yes 300 mg = 1 M emoria 300 MG Oral 4-15 cap, PO, l Capsule 19:55: Bedtime, # Herm blanca 00 30 cap, 6 Refill(s), Pharmacy: [id number], 162.56, cm, 01/19/21 14:28:00 CDT, Height, 76.364, kg, 01/19/21 14:28:00 CDT, Weight gabapentin 2020-0 No PO, 0 Memori a 4-15 Refill(s) l 19:54: [place] 00 gabapentin 2020-0 No PO, 0 Memori a 4-15 Refill(s) l 19:54: Rad 00 gabapentin 2020-0 No PO, 0 Memori a 4-15 Refill(s) l 19:54: Rad 00 multivitami 2019-10 Yes 1{tbl} QD Take 1 [...] mouth. Hospi ta ORAL) 15 l cholecalcif 2020- Yes 1000U QD Take 1,000 Methodi bayron, 2-[address] vitamin D3, 11:56: mouth Hospi ta (VITAMIN 15 daily. l D3) 1,000 unit tablet BETA 2020 Yes 15mg Take 15 mg Methodi CAROTENE 2-[address] ORAL 11:56: Hospita 15 l aspirin 2020- Yes 81mg QD Take 81 mg Meth [...] mouth. st 11:56: Hospita 15 l gemfibrozil 2019- Yes 600mg Q.5D Take 600 M ethodi (LOPID) 600 2-[address] MG tablet 11:56: mouth 2 Hospi ta 15 (two) l times a day before meals. ascorbic 2019- Yes 1000mg Take 1,000 M ethodi acid [...] tablet docosahexan 2019-10 Yes Take by Met lizarraga oic 2-[address] acid/epa 11:56: Hospita (FISH OIL 15 l ORAL) baclofen 2019-10 Yes Take one Metho di (LIORESAL) 2-[address] 10 MG 00:00: night and Hospita tablet 00 one tablet l in the morning. If you see benefits, you may increase to three tables a day. baclofen 2019-10 Yes Take one Metho di (LIORESAL) 2-[address] 10 MG 00:00: night and Hospita tablet 00 one tablet l in the morning. If you see benefits, you may increase to three tables a day. baclofen 2019-10 Yes Take one Metho di [...] nn 00 tab, 0 Refill(s) riluzole 50 2020-0 Yes 50 mg = 1 M emoria mg oral 5-19 tab, PO, l tablet 17:03: Q12H, # 60 Florecita nn 00 tab, 0 Refill(s) riluzole 50 2020-0 Yes 50 mg = 1 M emoria mg oral 5-19 tab, PO, l tablet 17:03: Q12H, # 60 Florecita nn 00 tab, 0 Refill(s) Janumet XR Janumet XR 2019-0 Yes Ailyn 2 tablets Common 2-11 Guo with Spirit 00:00: evening - [facility] 00 meal [facility] folic acid 2018-10 Yes Take by Meth elie 0.8 mg 2-[address] capsule 07:47: Hospita 28 l folic acid 2018-10 Yes Take by Meth elie 0.8 mg 2-[address] capsule 07:47: Hospita 28 l folic acid 2019-1 Yes Take by Meth elie 0.8 mg 2-[address] capsule 07:47: Hospita 28 l Carvedilol Carvedilol 2018- Yes Ailyn with food Common 0-24 Guo Spirit 00:00: [facility] Riluzole 2018- Yes 50 mg, PO, Mem oria 0-10 Q12H, X 30 l 19:35: day, 0 Refill(s) Riluzole 2018-10 Yes 50 mg, PO, Mem oria 0-10 Q12H, X 30 l 19:35: day, 0 Refill(s) Riluzole 2018-10 Yes 50 mg, PO, Mem oria 0-10 Q12H, X 30 l 19:35: day, 0 Refill(s) Jardiance Jardiance 2018-0 Yes Ailyn 1 tablet Common 8-15 [facility] Spirit 00:00: [facility] Lisinopril Lisinopril Yes Ailyn 1 tablet Common 8-15 [facility] Spirit 00:00: [facility] Metformin 2018-0 Yes 1,000 mg, Mem oria 4-24 PO, Daily, l 20:11: 0 Refill(s) Xarelto 2018-0 Yes 20 mg, PO, Twan shandra 4-24 Daily, 0 l 20:11: Refill(s) Metformin 2018-0 Yes 1,000 mg, Mem oria [...] PO, Daily, l 20:11: 0 Refill(s) Xarelto 2019-0 Yes 20 mg, PO, Twan shandra 4-24 Daily, 0 l 20:11: Refill(s) carvedilol 2019-0 Yes PO, 0 Memori a 4-24 Refill(s) l 20:11: gemfibrozil 2019-0 Yes 600 mg, Mem oria 4-24 PO, BID, 0 l 20:11: Refill(s) Lisinopril 2019-0 Yes 30 mg, PO, M emoria 4-24 Daily, 0 l 20:11: Refill(s) Gemfibrozil 2019-0 Yes 600 mg, Mem oria 4-24 PO, BID, 0 l 20:11: Refill(s) carvedilol 2018-0 Yes PO, 0 Memori a 4-24 Refill(s) l 20:11: Xarelto 2018-0 Yes 20 mg, PO, Twan [...] Memori a 4-24 Refill(s) l 20:11: lisinopril 2019-0 Yes 30 mg, PO, M emoria 4-24 Daily, 0 l 20:11: Refill(s) metFORMIN 2019-0 Yes 1,000 mg, Mem oria 4-24 PO, Daily, l 20:11: 0 Refill(s) Xarelto 2018-0 Yes 20 mg, PO, Twan shandra 4-24 Daily, 0 l 20:11: Refill(s) carvedilol 0 Yes PO, 0 Memori a 4-24 Refill(s) l 20:11: gemfibrozil 0 Yes 600 mg, Mem oria 4-24 PO, BID, 0 l 20:11: Refill(s) Xarelto 0 Yes 20 mg, PO, Twan shandra 4-24 Daily, 0 l 20:11: Refill(s) Xarelto Xarelto 0 Yes Ailyn 1 tablet C ommon 3-04 Guo with food Spirit 00:00: - [facility] 00 [facility] Aspir-81 Aspir-81 Yes Ailyn 1 tablet C ommon [facility] - [facility] Metformin Metformin Yes Ailyn 1 tablet Common HCl HCl Guo with meals [facility] - [facility] Gemfibrozil Gemfibrozil Yes Ailyn TAKE 1 Common Guo TABLET Spirit TWICE A - [facility] DAY [facility] Vital Signs Vital Name Observation Time Observation Value Comments Source Systolic (mm Hg) 2021-11-08 17:31:00 Twan rial [place] Diastolic (mm Hg) 2021-11-08 17:31:00 Mem orial Rad Heart Rate 2021-11-08 17:31:00 [facility] Rad Respitory Rate 2021-11-08 17:31:00 Memori al [place] Systolic (mm Hg) 2021-01-19 19:08:00 Twan rial [place] Diastolic (mm Hg) 2021-01-19 19:08:00 Mem orial Rad Heart Rate 2021-01-19 19:08:00 [facility] [place] Respitory Rate 2021-01-19 19:08:00 Memori al [place] Height 2021-01-19 19:08:00 162.56 cm [facility] Weight 2021-01-19 19:08:00 [facility] BMI Calculated 2021-01-19 19:08:00 Memori al [place] Systolic (mm Hg) 2020-07-19 18:14:00 Twan rial Rad Diastolic (mm Hg) 2020-07-19 18:14:00 Mem orial [place] Respitory Rate 2020-07-19 18:14:00 Memori al [place] Height 2020-07-19 18:14:00 162.56 cm [facility] [place] Weight 2020-07-19 18:14:00 [facility] [place] BMI Calculated 2020-07-19 18:14:00 Memori al Rad Heart Rate 2020-07-19 18:14:00 [facility] [place] Systolic (mm Hg) 2020-02-23 16:47:00 Twan rial Rad Diastolic (mm Hg) 2020-02-23 16:47:00 Mem orial [place] Heart Rate 2020-02-23 16:47:00 [facility] [place] Respitory Rate 2020-02-23 16:47:00 Memori al Rad Temperature Oral (F) 2020-02-23 16:47:00 96.0 F [facility] Height 2020-02-23 16:47:00 162.56 cm [facility] Weight 2020-02-23 16:47:00 [facility] [place] BMI Calculated 2020-02-23 16:47:00 Memori al Rad Systolic (mm Hg) 2019-07-16 18:29:00 Twan rial Rad Diastolic (mm Hg) 2019-07-16 18:29:00 Mem orial Rad Heart Rate 2019-07-16 18:29:00 [facility] [place] Respitory Rate 2019-07-16 18:29:00 Memori al [place] Height 2019-07-16 18:29:00 165.1 cm [facility] [place] Weight 2019-07-16 18:29:00 [facility] [place] BMI Calculated 2019-07-16 18:29:00 Memori al Rad Weight 2019-04-16 16:37:00 [facility] [place] BMI Calculated 2019-04-16 16:37:00 Memori al Rad Height 2019-04-16 16:37:00 165.1 cm [facility] [place] Heart Rate 2019-04-16 16:37:00 [facility] Respitory Rate 2019-04-16 16:37:00 Memori al Rad Systolic (mm Hg) 2019-04-16 16:37:00 Twan rial Rad Diastolic (mm Hg) 2019-04-16 16:37:00 Mem orial Rad BMI Calculated 2019-03-04 18:57:00 Memori al Rad Weight 2019-03-04 18:57:00 [facility] Height 2019-03-04 18:57:00 162.56 cm [facility] [place] Heart Rate 2019-03-04 18:57:00 [facility] [place] Respitory Rate 2019-03-04 18:57:00 Memori al Rad Systolic (mm Hg) 2019-03-04 18:57:00 Twan rial [place] Diastolic (mm Hg) 2019-03-04 18:57:00 Mem orial [place] Weight 2019-01-28 20:06:00 [facility] [place] BMI Calculated 2019-01-28 20:06:00 Memori al Rad Height 2019-01-28 20:06:00 165.1 cm [facility] [place] Respitory Rate 2019-01-28 20:06:00 Memori al Rad Heart Rate 2019-01-28 20:06:00 [facility] [place] Systolic (mm Hg) 2019-01-28 20:06:00 Twan rial [place] Diastolic (mm Hg) 2019-01-28 20:06:00 Mem orial Rad Procedures This patient has no known procedures. Plan of Care Planned Activity Planned Date Details Comments Source Future Scheduled 2022-08-12 HEPATITIS B VACCINES Met [facility] Test 15:48:39 (1 of 3 - 3-dose series) [code = HEPATITIS B VACCINES (1 of 3 - 3-dose series)] Future Scheduled 2022-08-12 COVID-19 VACCINE (#1) [facility] Test 15:48:39 [code = COVID-19 VACCINE (#1)] Future Scheduled 2022-08-12 Hepatitis C screening [facility] Test 15:48:39 (procedure) [code = 968801232] Future Scheduled 2022-08-12 COLONOSCOPY SCREENING [facility] Test 15:48:39 [code = COLONOSCOPY SCREENING] Future Scheduled 2022-08-12 SHINGLES VACCINES (1 Met [facility] Test 15:48:39 of 2) [code = SHINGLES VACCINES (1 of 2)] Future Scheduled 2022-08-12 INFLUENZA VACCINE Method [facility] Test 15:48:39 [code = INFLUENZA VACCINE] Future Scheduled 2022-06-08 HEPATITIS B VACCINES Met [facility] Test 07:13:12 (1 of 3 - 3-dose series) [code = HEPATITIS B VACCINES (1 of 3 - 3-dose series)] Future Scheduled 2022-06-08 COVID-19 VACCINE (#1) [facility] Test 07:13:12 [code = COVID-19 VACCINE (#1)] Future Scheduled 2022-06-08 Hepatitis C screening [facility] Test 07:13:12 (procedure) [code = 488892614] Future Scheduled 2022-06-08 COLONOSCOPY SCREENING [facility] Test 07:13:12 [code = COLONOSCOPY SCREENING] Future Scheduled 2022-06-08 SHINGLES VACCINES (1 Met [facility] Test 07:13:12 of 2) [code = SHINGLES VACCINES (1 of 2)] Future Scheduled 2022-06-08 INFLUENZA VACCINE Method [facility] Test 07:13:12 [code = INFLUENZA VACCINE] Future Scheduled 2022-06-02 HEPATITIS B VACCINES Met [facility] Test 09:02:10 (1 of 3 - 3-dose series) [code = HEPATITIS B VACCINES (1 of 3 - 3-dose series)] Future Scheduled 2022-06-02 COVID-19 VACCINE (#1) [facility] Test 09:02:10 [code = COVID-19 VACCINE (#1)] Future Scheduled 2022-06-02 Hepatitis C screening [facility] Test 09:02:10 (procedure) [code = [id number]] Future Scheduled 2022-06-02 COLONOSCOPY SCREENING [facility] Test 09:02:10 [code = COLONOSCOPY SCREENING] Future Scheduled 2022-06-02 SHINGLES VACCINES (1 Met [facility] Test 09:02:10 of 2) [code = SHINGLES VACCINES (1 of 2)] Future Scheduled 2022-06-02 INFLUENZA VACCINE Method [facility] Test 09:02:10 [code = INFLUENZA VACCINE] Encounters Start End Encounter Admission Attending Care Care Encounter Source Date/Time Date/Time Type Type Clinicians Facility Department ID 2021-11-01 [facility] [id number] Common 11:06:24 Sammy [id number] [facility] 2022-07-18 2022-07-18 Ambulatory nullFlavo MNA [id number] [facility] 18:30:00 18:30:00 Pre-Reg r Neurology 18 l [place] 2022-07-18 2022-07-18 Amb[facility]Flavo MNA [id number] [facility] 18:30[facility] 18:30:00 Pre-Reg r Neurology 18 l [place] Shelbyann 2022-07-18 2022-07-18 Outpatient MHIE IE [id number] Memoria 13:30:00 13:30:00 18 edel Leroy 2022-07-18 2022-07-18 Outpatient Clementina [facility] [id number] 13:30:00 13:30:00 Delfino 18 Con 2022-05-15 2022-05-15 Ambulatory nullFlavo MNA [id number] Memoria 16:15:00 16:15:00 Pre-Reg r Neurology 15 l Danyelle Leroy 2022-05-15 2022-05-15 Ambulatory nullFlavo MNA [id number] Memoria 16:15:00 16:15:00 Pre-Reg r Neurology 15 l Danyelle Leroy 2022-05-15 2022-05-15 Outpatient MHIE IE [id number] Memoria 11:15:00 11:15:00 15 edel Leroy 2022-05-15 2022-05-15 [id number] 11:15:00 11:15:00 Delfino 15 Con 2022-04-05 2022-04-06 Outpatient nullFlavo MNA [id number] Memoria 13:45:00 04:59:59 r Neurology 17 l Danyelle Leroy 2022-04-05 2022-04-06 Outpatient nullFlavo MNA [id number] Memoria 13:45:00 04:59:59 r Neurology 17 edel Leroy 2022-04-05 2022-04-05 [facility]patient [facility] [id number] 08:45:00 23:59:59 Delfino 17 Con 2022-04-05 2022-04-05 Outpatient MHIE MHIE [id number] Memoria 08:45:00 08:45:00 17 edel Leroy 2022-03-09 2022-03-10 Outpatient nullFlavo MNA [id number] Memoria 18:15:00 04:59:59 r Neurology 16 l Danyelle Leroy 2022-03-09 2022-03-10 Outpatient nullFlavo MNA [id number] Memoria 18:15:00 04:59:59 r Neurology 16 l [place] [facility] 2022-03-09 2022-03-09 Outpatient Clementina [facility] [id number] 13:15:00 23:59:59 Delfino 16 Con 2022-03-09 2022-03-09 Outpatient MHIE IE [id number] Memoria 13:15:00 13:15:00 16 edel Leroy 2021-11-08 2021-11-09 Outpatient nullFlavo MNA [id number] Memoria 17:30:00 05:59:59 r Neurology 14 l Danyelle Leroy 2021-11-08 2021-11-09 Outpatient nullFlavo MNA [id number] Memoria 17:30:00 05:59:59 r Neurology 14 l Danyelle Leroy 2021-11-08 2021-11-08 Outpatient Clementina [facility] [id number] 11:30:00 23:59:59 Delfino 14 Con 2021-11-08 2021-11-08 Outpatient MHIE IE [id number] Memoria 11:30:00 11:30:00 14 edel Leroy 2021-07-21 2021-07-21 Ambulatory nullFlavo MNA [id number] Memoria 18:30:00 18:30:00 Pre-Reg r Neurology 13 l Danyelle Leroy 2021-07-21 2021-07-21 Ambulatory nullFlavo MNA [id number] Memoria 18:30:00 18:30:00 Pre-Reg r Neurology 13 l Danyelle Leroy 2021-07-21 2021-07-21 Outpatient MHIE IE [id number] Memoria 13:30:00 13:30:00 13 edel Leroy 2021-07-21 2021-07-21 Outpatient Clementina [facility] [id number] 13:30:00 13:30:00 Delfino 13 Con 2021-01-25 2021-01-27 Outside nullFlavo MNA [id number] Memoria 15:19:03 04:59:59 Medical r Neurology 00 l Records Danyelle Leroy 2021-01-25 2021-01-27 Outside nullFlavo MNA [id number] Memoria 15:19:03 04:59:59 Medical r Neurology 00 l Records Danyelle Leroy 2021-01-25 2021-01-26 Outpatient MHMISCHER MHMISCHER [id number] 10:19:03 23:59:59 00 2021-01-19 2021-01-20 Outpatient nullFlavo MNA [id number] Memoria 18:45:00 04:59:59 r Neurology 12 l Danyelle Leroy 2021-01-19 2021-01-20 Outpatient nullFlavo MNA [id number] Memoria 18:45:00 04:59:59 r Neurology 12 l Danyelle Leroy 2021-01-19 2021-01-19 Outpatient Clementina [facility] MISCHER [id number] 13:45:00 23:59:59 Delfino 12 Con 2021-01-19 2021-01-19 Outpatient MHIE MHIE [id number] Memoria 13:45:00 13:45:00 12 edel Leroy 2021-01-06 2021-01-06 Ambulatory nullFlavo MNA [id number] Memoria 18:00:00 18:00:00 Pre-Reg r Neurology 11 l Danyelle Leroy 2021-01-06 2021-01-06 Ambulatory nullFlavo MNA [id number] Memoria 18:00:00 18:00:00 Pre-Reg r Neurology 11 l Danyelle Leroy 2021-01-06 2021-01-06 Outpatient MHIE MHIE [id number] Memoria 13:00:00 13:00:00 11 edel Leroy 2021-01-06 2021-01-06 Outpatient NORMA McraeSCHER [facility] [id number] 13:00:00 13:00:00 Delfino 11 Con 2020-09-08 2020-09-08 Outpatient PILAR [facility] [id number] [employer] 00:00:00 00:00:00 NIXON 055 Method i 2020-09-08 2020-09-08 Outpatient PILAR [facility] [id number] [employer] 00:00:00 00:00:00 NIXON 481 Method i 2020-08-25 2020-08-25 Ambulatory nullFlavo MNA [id number] Memoria 17:00:00 17:00:00 Pre-Reg r Neurology 08 l [place] [facility] 2020-08-25 2020-08-25 Ambulatory nullFlavo MNA [id number] Memoria 17:00:00 17:00:00 Pre-Reg r Neurology 09 l [place] [facility] 2020-08-25 2020-08-25 Ambulatory nullFlavo MNA [id number] Memoria 17:00:00 17:00:00 Pre-Reg r Neurology 08 l [place] 2020-08-25 2020-08-25 Ambulatory nullFlavo MNA [id number] Memoria 17:00:00 17:00:00 Pre-Reg r Neurology 09 l [place] [facility] 2020-08-25 2020-08-25 Outpatient MHIE MHIE [id number] Memoria 11:00:00 11:00:00 08 l [place] 2020-08-25 2020-08-25 Outpatient MHIE MHIE [id number] Memoria 11:00:00 11:00:00 09 l Rad 2020-08-25 2020-08-25 Outpatient FRANCIS McraeMISCHER MHMISCHER [id number] 11:00:00 11:00:00 Delfino 08 Cno 2020-08-25 2020-08-25 Outpatient FRANCIS McraeMISCHER MHMISCHER [id number] 11:00:00 11:00:00 Delfino 09 Con 2020-07-19 2020-07-20 Outpatient nullFlavo MNA [id number] Memoria 18:00:00 04:59:59 r Neurology 10 l [place] [facility] 2020-07-19 2020-07-20 Outpatient nullFlavo MNA [id number] Memoria 18:00:00 04:59:59 r Neurology 10 l [place] 2020-07-19 2020-07-19 Outpatient Clementina MHMISCHER MHMISCHER [id number] 13:00:00 23:59:59 Delfino 10 Con 2020-07-19 2020-07-19 Outpatient MHIE MHIE [id number] Memoria 13:00:00 13:00:00 10 l Rad 2020-02-23 2020-02-24 Outpatient nullFlavo MNA [id number] Memoria 16:45:00 04:59:59 r Neurology 07 l [place] 2020-02-23 2020-02-24 Outpatient nullFlavo MNA [id number] Memoria 16:45:00 04:59:59 r Neurology 07 l [place] [facility] 2020-02-23 2020-02-23 Outpatient NORMA McraeSCHDAVID MISCHER [id number] 11:45:00 23:59:59 Delfino Beto Andujar 2020-02-23 2020-02-23 Outpatient MHIE MHIE [id number] Memoria 11:45:00 11:45:00 07 edel Rad 2020-02-19 2020-02-19 Outpatient [facility] [id number] Common 09:20:00 09:20:00 [facility] 2020-02-18 2020-02-18 Outpatient [facility] [id number] Common 08:38:00 08:38:00 [facility] 2019-11-17 2019-11-17 Ambulatory nullFlavo MNA [id number] Memoria 19:15:00 19:15:00 Pre-Reg r Neurology 06 l [place] [facility] 2019-11-17 2019-11-17 Ambulatory nullFlavo MNA [id number] Memoria 19:15:00 19:15:00 Pre-Reg r Neurology 06 l [place] [facility] 2019-11-17 2019-11-17 Outpatient [facility] [id number] Common 15:20:00 15:20:00 [facility] 2019-11-17 2019-11-17 Outpatient MHIE IE [id number] Memoria 13:15:00 13:15:00 06 edel Rad 2019-11-17 2019-11-17 Outpatient NORMA McraeSCHDAVID [facility] [id number] 13:15:00 13:15:00 Delfinocindy Andujar 2019-07-30 2019-07-30 Outpatient [facility] [id number] Common 09:45:00 09:45:00 [facility] 2019-07-16 2019-07-17 Outpatient nullFlavo MNA [id number] Memoria 18:45:00 04:59:59 r Neurology 05 l [place] 2019-07-16 2019-07-17 Outpatient nullFlavo MNA [id number] Memoria 18:45:00 04:59:59 r Neurology 05 edel Leroy 2019-07-16 2019-07-16 Outpatient NORMA McraeSCHER MHMISCHER [id number] 13:45:00 23:59:59 Delfino Dallin Andujar 2019-07-16 2019-07-16 Ambulatory nullFlavo MNA [id number] Memoria 16:30:00 16:30:00 Pre-Reg r Neurology 04 l Danyelle Leroy 2019-07-16 2019-07-16 Ambulatory nullFlavo MNA [id number] Memoria 16:30:00 16:30:00 Pre-Reg r Neurology 04 edel Leroy 2019-07-16 2019-07-16 Outpatient MHIE MHIE [id number] Memoria 13:45:00 13:45:00 05 edel Leroy 2019-07-16 2019-07-16 Outpatient MHIE MHIE [id number] Memoria 11:30:00 11:30:00 Pineda Leroy 2019-07-16 2019-07-16 Outpatient FRANCIS McraeVASCHER MISCHER [id number] 11:30:00 11:30:00 Delfino Andujar 2019-05-21 2019-05-21 [facility] [id number] Common 09:45:00 09:45:00 [facility] 2019-05-05 2019-05-05 Outpatient GHANSHYAM [facility] [id number] [address] [place] [address] 00:00:00 00:00:00 NELLI Calvin Method i 2019-05-05 2019-05-05 Outpatient [facility]ANSHYAM [facility] [id number] [address] [place] [address] 00:00:00 00:00:00 NELLI Valdez Method i 2019-04-16 2019-04-17 Outpatient nullFlavo MNA [id number] Memoria 16:30:00 04:59:59 r Neurology 03 edel Leroy 2019-04-16 2019-04-17 Outpatient nullFlavo MNA [id number] Memoria 16:30:00 04:59:59 r Neurology 03 edel Leroy 2019-04-16 2019-04-16 Outpatient FRANCIS McraeMISCHER MISCHER [id number] 11:30:00 23:59:59 Delfino Con 2019-04-16 2019-04-16 Outpatient MHIE MHIE [id number] Memoria 11:30:00 11:30:00 03 edel Rad 2019-04-02 2019-04-02 Ambulatory nullFlavo MNA [id number] Memoria 16:45:00 16:45:00 Pre-Reg r Neurology 02 edel [place] Rad 2019-04-02 2019-04-02 Ambulatory nullFlavo MNA [id number] Memoria 16:45:00 16:45:00 Pre-Reg r Neurology 02 edel [place] Rad 2019-04-02 2019-04-02 Outpatient MHIE MHIE [id number] Memoria 11:45:00 11:45:00 02 edel Rad 2019-04-02 2019-04-02 Outpatient Clementina [facility] [id number] 11:45:00 11:45:00 Delfino 02 Con 2019-03-19 2019-03-19 Outpatient [facility] [id number] Common 15:39:00 15:39:00 [facility] 2019-03-04 2019-03-05 Outpatient nullFlavo MNA [id number] Memoria 18:00:00 04:59:59 r Neurology 01 edel [place] Rad 2019-03-04 2019-03-05 Outpatient nullFlavo MNA [id number] Memoria 18:00:00 04:59:59 r Neurology 01 edel Leroy 2019-03-04 2019-03-04 Outpatient FRANCIS McraeMISCHER MISCHER [id number] 13:00:00 23:59:59 Delfino Con 2019-03-04 2019-03-04 Outpatient MHIE MHIE [id number] Memoria 13:00:00 13:00:00 01 edel Rad 2019-02-04 2019-02-04 Outpatient [facility] [id number] Common 14:15:00 14:15:00 t [facility] 2019-01-28 2019-01-29 Outpatient nullFlavo MNA [id number] Memoria 19:30:00 04:59:59 r Neurology 00 l Danyelle Leroy 2019-01-28 2019-01-29 Outpatient nullFlavo MNA [id number] Memoria 19:30:00 04:59:59 r Neurology 00 l Danyelle Leroy 2019-01-28 2019-01-28 Outpatient NORMA [facility] [id number] 14:30:00 23:59:59 Delfino Torri Andujar 2019-01-02 2019-01-02 Outpatient [facility] [id number] Common 13:41:00 13:41:00 t [facility] [address] [facility] 2018-12-08 2018-12-08 Outpatient [facility] [id number] Common 16:49:00 16:49:00 t [facility] [address] [facility] 2018-12-04 2018-12-04 Outpatient [facility] [id number] Common 13:59:00 13:59:00 t [facility] [address] [facility] 2018-11-26 2018-11-26 Outpatient [facility] [id number] Common 16:33:00 16:33:00 [facility] 2018-11-04 2018-11-04 Outpatient [facility] [id number] Common 15:30:00 15:30:[address] [facility] 2018-10-30 2018-10-30 Outpatient [facility] [id number] Common 15:49:00 15:49:00 t [facility] 2018-10-30 2018-10-30 Outpatient [facility] [id number] Common 15:00:00 15:00:00 t [facility] Results This patient has no known results.
[2022-08-13] MEDS ORDERED: LORazepam 2 MG/ML VIAL ONE (19:16)
--- NOTE | 2022-08-13 19:37 | EDPHYS ---
Physician Documentation [facility] Name: Beto Luevano Age: 57 yrs Sex: Male : 1965 Arrival Date: 08/13/2022 Time: 18:50 Bed 17 Private MD: ED Physician Hayes Torres HPI: 08/13 19:30 This 57 yrs old Male presents to ER via EMS with complaints of difficulty sp3 breathing and anxiety. 19:30 57-year-old male with history of ALS, atrial fibrillation, diabetes, hypertension who sp3 was just was discharged approximately 5 hours prior to patient arrival from the intensive care unit from this hospital presents with a chief complaint "could not breathe" which has now fully resolved. Patient is here with his son who states that he was a little anxious and feels like his suction was not working at home properly. To my arrival into the room, respiratory therapy was able to suction him out and he now feels better and is at his baseline. He does state that his heart rate is in the 140s and it was about that when he was discharged earlier. Patient is a hospice patient during no other complaints including fever, headache, chest pain, back pain, vomiting, diarrhea, bleeding, any other symptoms on ROS at this time.. Historical: - Allergies: 19:13 Ibuprofen; jd3 - Home Meds: 19:13 gemfibrozil Oral [Active]; lisinopril Oral [Active]; Metformin Oral [Active]; jd3 - PMHx: 19:13 ALS; Atrial fibrillation; diabetes mellitus; hernia repair; Hypertension; [place]; ROSC; jd3 tracheostomy; - Immunization history:: Adult Immunizations up to date. - Social history:: Smoking status: unknown. ROS: 19:32 Constitutional: Negative for fever, chills, and weight loss, Eyes: Negative for injury, sp3 pain, redness, and discharge, ENT: Negative for injury, pain, and discharge, Abdomen/GI: Negative for abdominal pain, nausea, vomiting, diarrhea, and constipation, Skin: Negative for injury, rash, and discoloration. 19:32 All other systems are negative. Exam: 19:33 Constitutional: This is a well developed, well nourished patient who is awake, alert, sp3 and in no acute distress. Head/Face: Normocephalic, atraumatic. Eyes: Pupils equal round and reactive to light, extra-ocular motions intact. Lids and lashes normal. Conjunctiva and sclera are non-icteric and not injected. Cornea within normal limits. Periorbital areas with no swelling, redness, or edema. Neck: Trachea midline, no thyromegaly or masses palpated, and no cervical lymphadenopathy. Supple, full range of motion without nuchal rigidity, or vertebral point tenderness. No Meningismus. Chest/axilla: Normal chest wall appearance and motion. Nontender with no deformity. No lesions are appreciated. Abdomen/GI: Soft, non-tender, with normal bowel sounds. No distension or tympany. No guarding or rebound. No evidence of tenderness throughout. Back: No spinal tenderness. No costovertebral tenderness. Full range of motion. 19:33 Cardiovascular: Rate: tachycardic. 19:33 Respiratory: Coarse breath sounds bilaterally.. Vital Signs: 19:14 BP 164 / 103; Pulse 138; Resp 22 S; Temp 97.7(O); Pulse Ox 100% on 35% FiO2 ETT vent; jd3 Pain 0/10; 21:24 BP 79 / 45; Pulse 142; Resp 16; Pulse Ox 100% ; kd3 MDM: 19:10 Patient medically screened. sp3 19:34 Data reviewed: vital signs, nurses notes, EMS record, old medical records. ED course: sp3 Discussed with patient and son who both agree that symptoms are now resolved and that it may have been a mucous plug. Will observe patient for the next 45 to 60 minutes and also administer Ativan 2 mg IM for some anxiety relief secondary to the incident. Patient wishes to be discharged home and has no other complaints at this time.. Administered Medications: 19:22 CANCELLED (Physician Discretion): Ativan (LORazepam) 1 mg IVP once kd3 19:25 Drug: Ativan (LORazepam) 2 mg Route: IM; Site: left deltoid; kd3 21:24 Follow up: Response: No adverse reaction; Anxiety decreased kd3 Disposition Summary: 08/13/22 19:36 Discharge Ordered Location: Home sp3 Condition: Stable sp3 Diagnosis - Mucous plug, anxiety sp3 Followup: sp3 - With: Private Physician - When: Upon discharge from the Emergency Department - Reason: Continuance of care Discharge Instructions: - Discharge Summary Sheet sp3 - How to Clean a Tracheostomy Tube, Adult sp3 Forms: - Medication Reconciliation Form sp3 - Thank You Letter sp3 - Antibiotic Education sp3 - Prescription Opioid Use sp3 Signatures: Jose Leonardo RN RN jd3 Hayes Torres MD MD sp3 Maine Aguilar RN RN kd3 Corrections: (The following items were deleted from the chart) 19:22 19:15 Ativan (LORazepam) 1 mg IVP once ordered. sp3 kd3
--- NOTE | 2022-08-13 19:37 | ER ---
Nurse's Notes [facility] Name: Beto Luevano Age: 57 yrs Sex: Male : 1965 Arrival Date: 08/13/2022 Time: 18:50 Bed 17 Private MD: Diagnosis: Mucous plug, anxiety Presentation: 08/13 18:58 Chief complaint: Chief complaint: EMS states: "family called for pt having shortness of jd3 breath and low O2 level. the pt has a Trach and on a home ventilator at 5 L. the pt saturation was at 50 % and was taken off the ventilator and bagged at home by family and hospice nurse. he did loose consciousness prior to our arrival, but as soon as we got him hooked up to O2 at 100% he woke up and his saturation improved to 97%. the pt was just discharged from the ICU here about 2 hours ago. he is on home hospice, but is still full code. he expressed that he does not want to be shocked though. his rhythm appears to be SVT.". 19:00 Note RT to bedside with ventilator. O2 delivery at 35%. saturation at 96%. jd3 19:06 Coronavirus screen: At this time, the client does not indicate any symptoms associated jd3 with coronavirus-19. Ebola Screen: No symptoms or risks identified at this time. Initial Sepsis Screen: Does the patient meet any 2 criteria? RR > 20 per min. HR > 90 bpm. Yes Does the patient have a suspected source of infection? No. Patient's initial sepsis screen is negative. Risk Assessment: Do you want to hurt yourself or someone else? Patient reports no desire to harm self or others. Onset of symptoms was August 13, 2022. 19:06 Method Of Arrival: EMS: [facility] jd3 19:06 Acuity: JUAN 1 jd3 Triage Assessment: 21:22 General: Appears in no apparent distress. Behavior is calm, cooperative. Pain: Denies kd3 pain. Neuro: Level of Consciousness is awake, alert, obeys commands, Oriented to person, place, time, situation. Respiratory: Ventilator assessment: Patient repositioned. Historical: - Allergies: 19:13 Ibuprofen; jd3 - Home Meds: 19:13 gemfibrozil Oral [Active]; lisinopril Oral [Active]; Metformin Oral [Active]; jd3 - PMHx: 19:13 ALS; Atrial fibrillation; diabetes mellitus; hernia repair; Hypertension; [place]; ROSC; jd3 tracheostomy; - Immunization history:: Adult Immunizations up to date. - Social history:: Smoking status: unknown. Screenin:22 Abuse screen: Denies threats or abuse. Denies injuries from another. Nutritional kd3 screening: No deficits noted. Tuberculosis screening: No symptoms or risk factors identified. Fall Risk None identified. Vital Signs: 19:14 BP 164 / 103; Pulse 138; Resp 22 S; Temp 97.7(O); Pulse Ox 100% on 35% FiO2 ETT vent; jd3 Pain 0/10; 21:24 BP 79 / 45; Pulse 142; Resp 16; Pulse Ox 100% ; kd3 ED Course: 18:50 Patient arrived in ED. am2 19:09 Hayes Torres MD is Attending Physician. sp3 19:13 Triage completed. jd3 19:15 Maine Aguilar RN is Primary Nurse. kd3 19:15 Arm band placed on. EKG completed in triage. Results shown to MD. jd3 21:22 Patient has correct armband on for positive identification. kd3 21:22 No provider procedures requiring assistance completed. Patient did not have IV access kd3 during this emergency room visit. Administered Medications: 19:22 CANCELLED (Physician Discretion): Ativan (LORazepam) 1 mg IVP once kd3 19:25 Drug: Ativan (LORazepam) 2 mg Route: IM; Site: left deltoid; kd3 21:24 Follow up: Response: No adverse reaction; Anxiety decreased kd3 Medication: 21:24 VIS not applicable for this client. kd3 Outcome: 19:36 Discharge ordered by . sp3 21:22 Discharged to home via ambulance. kd3 21:22 Condition: stable 21:22 Discharge instructions given to patient, family, Instructed on discharge instructions, follow up and referral plans. Demonstrated understanding of instructions, follow-up care. 21:24 Patient left the ED. kd3 Signatures: Sienna Soto am2 Jose Leonardo RN RN jd3 Hayes Torres MD MD sp3 Maine Aguilar RN RN kd3 Corrections: (The following items were deleted from the chart) 19:13 18:58 Chief complaint: jsimon jsimon 19:18 19:06 Acuity: JUAN 1 jd3 jd3 19:20 19:06 Acuity: JUAN 2 jd3 jd3
[2022-08-13 22:56] VITALS: BP 79/45; O2SAT 100
--- NOTE | 2022-08-16 06:36 | EKG ---
Test Date: 2022-08-13 Test Time: 19:08:06 Clam Dredger: KASI MEASUREMENT RESULTS: Intervals: Rate: 145 VT: QRSD: 90 QT: 326 QTc: 506 [place]: P: VT: QRS: -13 T: 168 INTERPRETIVE STATEMENTS: Supraventricular tachycardia Left ventricular hypertrophy with repolarization abnormality Inferior-posterior infarct, age undetermined Abnormal ECG Compared to ECG 08/03/2022 20:49:00 Left ventricular hypertrophy now present Early repolarization now present Myocardial infarct finding now present Atrial flutter no longer present ST (T wave) deviation no longer present Possible ischemia no longer present Electronically Signed On 08-16-22 06:31:06 [employer]CRETARY by Andrea Wu
== END 2022-08-13 21:24 | disposition home or self-care (01) ==
LOC: ER 18:49
DX: J95.09 Other tracheostomy complication (principal); F41.9 Anxiety disorder, unspecified; I10 Essential (primary) hypertension; I48.91 Unspecified atrial fibrillation; Z88.6 Allergy status to analgesic agent
CPT/HCPCS: 93005; 96372; 99284

== ENCOUNTER 2022-11-12 10:17 | Inpatient (IN) | payer OTHER ==
--- OUTSIDE RECORDS SUMMARY | 2022-11-12 10:21 | XMS REPORT | Continuity of Care Document ---
:1965 Author Organization [facility] t Address [address] [place] [address] Care Team Providers Name Role Phone Orlin VO, Sammy Rose Primary Care Physician [phone] Sammy Ordaz Attending Clinician Unavailable Delfino Mcrae Attending Clinician NIXON QUEZADA Attending Clinician Unavailable NELLI MORRISSEY Attending Clinician Unavailable Payers Payer Name Policy Type Policy Number Effective Date Expiration Date Corina berg [facility] [id number] 2021 00:00:00 Problems Condition Condition Condition Status Onset Resolution Last Treating Co mments Source Name Details Category Date Date Treatment Clinician Date Spasticity Spasticity Disease Active M ethodi 10-29 00:00: Hospita 00 l Risk for Risk for Disease Active Metho di falls falls 10-29 00:00: Hospita 00 l Muscle Muscle Disease Active Methodi cramping cramping 05-07 00:00: Hospita 00 l Atrial Atrial Disease Active Methodi fibrillati fibrillati 05-06 st on on 00:00: Hospita 00 l Neuropathy Neuropathy Problem Active C ommon [facility] - [facility] 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, 1.5, 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 [facility] Essential Essential Problem Active Com mon hypertensi hypertensi Sp mendel on on - [facility] Pure Pure Problem Active Common hyperchole hyperchole Sp mendel sterolemia sterolemia - [facility] History of History of Problem Active C ommon alcoholism alcoholism Sp mendel - [facility] Atrial Atrial Diagnosis Active Common fibrillati fibrillati Sp mendel on, on, - [facility] unspecifie unspecifie St d type d type [facility] Acute gout Acute gout Problem Active C ommon of right of right Spirit foot, foot, - [facility] unspecifie unspecifie St d cause d cause [facility] 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) [facility] Cervical Cervical Problem Resolve 2022 Memoria myelopathy [...] 2022-07-20 Memoria (disorder) (disorder) 23:13:29 l Active [place] Problem 07/20/2022 [facility] Dyspnea Dyspnea Problem Active 2022-07-20 Me moria (finding) (finding) 23:13:29 l Active Rad Problem 07/20/2022 [facility] ALS ALS Disease Active Methodi (amyotroph (amyotroph st ic lateral ic lateral Ho spita sclerosis) sclerosis) l Muscle Muscle Disease Active Methodi weakness weakness st Hospita l Allergies, Adverse Reactions, Alerts Allergy Allergy Status Severity Reaction(s) Onset Inactive Treating Comm ents Source Name Type Date Date Clinician Ibuprofe Propensi Active Hives Method i n ty to 30 st adverse 00:00: Hospita reaction 00 l s to drug ibuprofe ibuprofe Active Memori a n n l Rad Ibuprofe Adverse Active Info Not Commo n n Reaction Available [facility] Family History Family Member Diagnosis Comments Start Date Stop Date Source Natural father Diabetes [facility] Natural mother Hypertension [facility] Social History Social Habit Start Date Stop Date Quantity Comments Source History of Current smoker [facility] tobacco use Hospital Alcohol intake 2020-09-08 2020-09-08 Current drinker [facility] 00:00:00 00:00:00 of alcohol Hospital (finding) Tobacco use and 2019-05-05 2019-05-05 Smokeless tobacco [facility] exposure 00:00:00 00:00:00 non-user Hospital Sex Assigned At [birth year] [facility] 00:00:00 [facility]:00 [facility] Center Smoking Status Start Date Stop Date Source Tobacco smoking status [facility] Rad Ex-smoker 2019-05-05 00:00:00 2019-05-05 00:00:00 [facility] Medications Ordered Filled Start Stop Current Ordering Indication Dosage Frequency Signature Comments Components Source Medication Medication Date Date Medication? Clinician (SIG) Name Name gabapentin Yes = 1 cap, Mem oria 300 mg oral 3-01 PO, l capsule 23:26: Bedtime, # Herm blanca 00 30 unknown unit, 6 Refill(s), Pharmacy: [facility] STORE [id number], 162.56, cm, 01/19/21 14:28:00 CDT, Height, 76.364, kg, 01/19/21 14:28:00 CDT, Weight gabapentin Yes = 1 cap, Mem oria 300 mg oral 3-01 PO, l capsule 23:26: Bedtime, # Herm blanca 00 30 unknown unit, 6 Refill(s), Pharmacy: [facility] STORE [id number], 162.56, cm, 01/19/21 14:28:00 CDT, Height, 76.364, kg, 01/19/21 14:28:00 CDT, Weight gabapentin Yes = 1 cap, Mem oria 300 mg oral 3-01 PO, l capsule 23:26: Bedtime, # Herm blanca 00 30 unknown unit, 6 Refill(s), Pharmacy: [facility] STORE [id number], 162.56, cm, 01/19/21 14:28:00 CDT, Height, 76.364, kg, 01/19/21 14:28:00 CDT, Weight gabapentin 2022-0 Yes = 1 cap, Mem oria 300 mg oral 3-01 PO, l capsule 23:26: Bedtime, # Herm blanca 00 30 unknown unit, 6 Refill(s), Pharmacy: [facility] STORE 20699, 162.56, cm, 01/19/21 14:28:00 CDT, Height, 76.364, kg, 01/19/21 14:28:00 CDT, Weight gabapentin 2021-0 Yes 300 mg = 1 M emoria 300 MG Oral 4-15 cap, PO, l Capsule 19:55: Bedtime, # Herm blanca 00 30 cap, 6 Refill(s), Pharmacy: [facility] #[id number], 162.56, cm, 01/19/21 14:28:00 CDT, Height, 76.364, kg, 01/19/21 14:28:00 CDT, Weight gabapentin 2021-0 Yes 300 mg = 1 M emoria 300 MG Oral 4-15 cap, PO, l Capsule 19:55: Bedtime, # Herm blanca 00 30 cap, 6 Refill(s), Pharmacy: [facility] #[id number], 162.56, cm, 01/19/21 14:28:00 CDT, Height, 76.364, kg, 01/19/21 14:28:00 CDT, Weight gabapentin 2021-0 Yes 300 mg = 1 M emoria 300 MG Oral 4-15 cap, PO, l Capsule 19:55: Bedtime, # Herm blanca 00 30 cap, 6 Refill(s), Pharmacy: [facility] #[id number], 162.56, cm, 01/19/21 14:28:00 CDT, Height, 76.364, kg, 01/19/21 14:28:00 CDT, Weight gabapentin 2021-0 Yes 300 mg = 1 M emoria 300 MG Oral 4-15 cap, PO, l Capsule 19:55: Bedtime, # Herm blanca 00 30 cap, 6 Refill(s), Pharmacy: [id number], 162.56, cm, 01/19/21 14:28:00 CDT, Height, 76.364, kg, 01/19/21 14:28:00 CDT, Weight gabapentin Yes 300 mg = 1 M emoria 300 MG Oral 4-15 cap, PO, l Capsule 19:55: Bedtime, # Herm blanca 00 30 cap, 6 Refill(s), Pharmacy: [facility] #[id number], 162.56, cm, 01/19/21 14:28:00 CDT, Height, 76.364, kg, 01/19/21 14:28:00 CDT, Weight gabapentin 0 No PO, 0 Memori a 4-15 Refill(s) l 19:54: [place] gabapentin 2020-0 No PO, 0 Memori a 4-15 Refill(s) l 19:54: Rad gabapentin 2020-0 No PO, 0 Memori a 4-15 Refill(s) l 19:54: [place] gabapentin 2020-0 No PO, 0 Memori a 4-15 Refill(s) l 19:54: Rad 00 gabapentin 2020-0 No PO, 0 Memori a 4-15 Refill(s) l 19:54: Rad 00 aspirin 2019-10 Yes 81mg QD Take [...] l times a day before meals. ascorbic 2020 Yes 1000mg Take 1,000 M ethodi acid [...] st ORAL 11:56: Hospita 15 l aspirin 2019- Yes 81mg QD Take 81 mg Meth [...] 11:56: daily. Hospita tablet 15 l metFORMIN 2020 Yes 1000mg QD Take 1,000 Methodi (GLUCOPHAGE [...] st ORAL 11:56: Hospita 15 l aspirin 2019- Yes 81mg QD Take 81 mg Meth [...] st ORAL 11:56: Hospita 15 l baclofen 2020-1 Yes Take one Metho di (LIORESAL) 2-[address] 10 MG 00:00: night and Hospita tablet 00 one tablet l in the morning. If you see benefits, you may increase to three tables a day. baclofen 2020-1 Yes Take one Metho di (LIORESAL) 2-[address] 10 MG 00:00: night and Hospita tablet 00 one tablet l in the morning. If you see benefits, you may increase to three tables a day. baclofen 2020- Yes Take one Metho di (LIORESAL) 2-[address] 10 MG 00:00: night and Hospita tablet 00 one tablet l in the morning. If you see benefits, you may increase to three tables a day. baclofen 2020-1 Yes Take one Metho di (LIORESAL) 2-[address] 10 MG 00:00: night and Hospita tablet 00 one tablet l in the morning. If you see benefits, you may increase to three tables a day. baclofen 2020-1 Yes Take one Metho di (LIORESAL) 2-03 [...] tab, 0 Refill(s) Janumet XR Janumet XR 2019- Yes Ailyn 2 tablets Common 211 Guo with Spirit 00:00: evening - [facility]I 00 meal [facility] folic acid 2018-10 Yes Take by [...] Common 0-24 Guo Spirit 00:00: - [facility] 00 [facility] Riluzole 2018-10 Yes 50 mg, PO, Mem oria 0-10 Q12H, X 30 l 19:35: day, 0 Rad 00 Refill(s) Riluzole 2018-10 Yes 50 mg, PO, Mem oria 0-10 Q12H, X 30 l 19:35: day, 0 Rad 00 Refill(s) Riluzole 2018-10 Yes 50 mg, PO, Mem oria 0-10 Q12H, X 30 l 19:35: day, 0 [place] 00 Refill(s) Riluzole 2018-10 Yes 50 mg, PO, Mem oria 0-10 Q12H, X 30 l 19:35: day, 0 Rad 00 Refill(s) Riluzole 2018-10 Yes 50 mg, PO, Mem oria 0-10 Q12H, X 30 l 19:35: day, 0 [place] 00 Refill(s) Jardiance Jardiance 2018- Yes Ailyn 1 tablet Common 8 Guo Spirit 00:00: - [facility] Lisinopril Lisinopril 2018- Yes Ailyn 1 tablet Common 05-21 Gu[facility] Spirit 00:00: - [facility] Lisinopril 2019-0 Yes 30 mg, PO, M [...] PO, BID, 0 l 20:11: Refill(s) Xarelto 2019-0 Yes 20 mg, PO, Twan shandra 4-24 Daily, 0 l 20:11: Refill(s) Metformin 2019-0 Yes 1,000 mg, Mem oria 4-24 PO, Daily, l 20:11: 0 Refill(s) Lisinopril 2019-0 Yes 30 mg, PO, [...] PO, BID, 0 l 20:11: Refill(s) Xarelto 2019-0 Yes 20 mg, PO, Twan shandra 4-24 Daily, 0 l 20:11: Refill(s) Xarelto 2019-0 Yes 20 mg, PO, Twan shandra 4-24 Daily, 0 l 20:11: Refill(s) Metformin 2018-0 Yes 1,000 mg, Mem oria 4-24 PO, Daily, l 20:11: 0 Refill(s) Lisinopril 0 Yes 30 mg, PO, M emoria 4-24 [...] 4-24 PO, BID, 0 l 20:11: Refill(s) Metformin 2018-0 Yes 1,000 mg, Mem oria 4-24 PO, Daily, l 20:11: 0 Refill(s) Lisinopril 2019-0 Yes 30 mg, PO, [...] 4-24 Daily, 0 l 20:11: Refill(s) metFORMIN 0 Yes 1,000 mg, Mem oria 4-24 PO, Daily, l 20:11: 0 Refill(s) Xarelto 2019-0 Yes 20 mg, PO, Twan shandra 4-24 Daily, 0 l 20:11: Refill(s) carvedilol 2019-0 Yes PO, 0 Memori a 4-24 Refill(s) l 20:11: gemfibrozil 2019-0 Yes 600 mg, Mem oria 4-24 PO, BID, 0 l 20:11: Refill(s) Xarelto 2019-0 Yes 20 mg, PO, Twan shandra 4-24 Daily, 0 l 20:11: Refill(s) Metformin 2018-0 Yes 1,000 mg, Mem oria 4-24 PO, Daily, l 20:11: 0 Rad 00 Refill(s) Xarelto Xarelto 2018-0 Yes Ailyn 1 tablet C ommon 3-04 Guo with food Spirit 00:00: - [facility] 00 [facility] Aspir-81 Aspir-81 Yes Ailyn 1 tablet C ommon Guo [facility] - [facility] Metformin Metformin Yes Ailyn 1 tablet Common HCl HCl Guo with meals Spirit - [facility] Gemfibrozil Gemfibrozil Yes Ailyn TAKE 1 Common Guo TABLET Spirit TWICE A - CHI DAY [facility] Vital Signs Vital Name Observation Time Observation Value Comments Source Systolic (mm Hg) 2021-11-08 17:31:00 Twan rial Rad Diastolic (mm Hg) 2021-11-08 17:31:00 Mem orial Rad Heart Rate 2021-11-08 17:31:00 [facility] [place] Respitory Rate 2021-11-08 17:31:00 Memori al [place] Systolic (mm Hg) 2021-01-19 19:08:00 Twan rial [place] Diastolic (mm Hg) 2021-01-19 19:08:00 Mem orial Rad Heart Rate 2021-01-19 19:08:00 [facility] [place] Respitory Rate 2021-01-19 19:08:00 Memori al [place] Height 2021-01-19 19:08:00 162.56 cm [facility] [place] Weight 2021-01-19 19:08:00 [facility] [place] BMI Calculated 2021-01-19 19:08:00 Memori al Rad Systolic (mm Hg) 2020-07-19 18:14:00 Twan rial Rad Diastolic (mm Hg) 2020-07-19 18:14:00 Mem orial Rad Respitory Rate 2020-07-19 18:14:00 Memori al [place] Height 2020-07-19 18:14:00 162.56 cm [facility] [place] Weight 2020-07-19 18:14:00 [facility] [place] BMI Calculated 2020-07-19 18:14:00 Memori al Rad Heart Rate 2020-07-19 18:14:00 Memorial Rad Systolic (mm Hg) 2020-02-23 16:47:00 Twan rial [place] Diastolic (mm Hg) 2020-02-23 16:47:00 Mem orial Rad Heart Rate 2020-02-23 16:47:00 Memorial Rad Respitory Rate 2020-02-23 16:47:00 Memori al [place] Temperature Oral (F) 2020-02-23 16:47:00 96.0 F Memorial Rad Height 2020-02-23 16:47:00 162.56 cm [facility] [place] Weight 2020-02-23 16:47:00 Memorial Rad BMI Calculated 2020-02-23 16:47:00 Memori al Rad Systolic (mm Hg) 2019-07-16 18:29:00 Twan rial [place] Diastolic (mm Hg) 2019-07-16 18:29:00 Mem orial [place] Heart Rate 2019-07-16 18:29:00 [facility] [place] Respitory Rate 2019-07-16 18:29:00 Memori al Rad Height 2019-07-16 18:29:00 165.1 cm [facility] [place] Weight 2019-07-16 18:29:00 [facility] [place] BMI Calculated 2019-07-16 18:29:00 Memori al Rad Weight 2019-04-16 16:37:00 Memorial Rad BMI Calculated 2019-04-16 16:37:00 Memori al [place] Height 2019-04-16 16:37:00 165.1 cm [facility] [place] Heart Rate 2019-04-16 16:37:00 [facility] [place] Respitory Rate 2019-04-16 16:37:00 Memori al [place] Systolic (mm Hg) 2019-04-16 16:37:00 Twan rial Rad Diastolic (mm Hg) 2019-04-16 16:37:00 Mem orial [place] BMI Calculated 2019-03-04 18:57:00 Memori al Rad Weight 2019-03-04 18:57:00 Memorial Rad Height 2019-03-04 18:57:00 162.56 cm Memorial Rad Heart Rate 2019-03-04 18:57:00 [facility] [place] Respitory Rate 2019-03-04 18:57:00 Memori al Rad Systolic (mm Hg) 2019-03-04 18:57:00 Twan rial [place] Diastolic (mm Hg) 2019-03-04 18:57:00 Mem orial [place] Weight 2019-01-28 20:06:00 Memorial Rad BMI Calculated 2019-01-28 20:06:00 Jessica irene Rad Height 2019-01-28 20:06:00 165.1 cm [facility] [place] Respitory Rate 2019-01-28 20:06:00 Jessica Frey Heart Rate 2019-01-28 20:06:00 Memorial Rad Systolic (mm Hg) 2019-01-28 20:06:00 Twan blas [place] Diastolic (mm Hg) 2019-01-28 20:06:00 Mem orial Rad Procedures This patient has no known procedures. Plan of Care Planned Activity Planned Date Details Comments Source Future Scheduled 2022-10-[address] [facility] 00:00:00 WELLNESS (YEAR 2 or Medical Center FIRST YEAR if no IPPE) [code = MEDICARE ANNUAL WELLNESS (YEAR 2 or FIRST YEAR if no IPPE)] Future Scheduled 2022-10-[address] [facility] Test 00:00:00 (12+) [code = Medical Center DEPRESSION SCREENING (12+)] Future Scheduled 2022-09-28 COVID-19 VACCINE (#1) [facility] Test 14:10:31 [code = COVID-19 VACCINE (#1)] Future Scheduled 2022-09-28 Hepatitis C screening [facility] Test 14:10:31 (procedure) [code = 526459303] Future Scheduled 2022-09-28 COLONOSCOPY SCREENING [facility] Test 14:10:31 [code = COLONOSCOPY SCREENING] Future Scheduled 2022-09-28 SHINGLES VACCINES (1 Met [facility] Test 14:10:31 of 2) [code = SHINGLES VACCINES (1 of 2)] Future Scheduled 2022-09-28 INFLUENZA VACCINE Method ist Hospital Test 14:10:31 [code = INFLUENZA VACCINE] Future Scheduled 2022-09-28 COVID[facility]19 [facility] 14:10:31 [code = COVID-19 VACCINE (#1)] Future Scheduled 2022-09-28 Hepatitis C screening [facility] Test 14:10:31 (procedure) [code = 588668619] Future Scheduled 2022-09-28 COLONOSCOPY SCREENING [facility] Test 14:10:31 [code = COLONOSCOPY SCREENING] Future Scheduled 2022-09-28 SHINGLES VACCINES (1 Met [facility] Test 14:10:31 of 2) [code = SHINGLES VACCINES (1 of 2)] Future Scheduled 2022-09-28 INFLUENZA VACCINE Method ist Hospital Test 14:10:31 [code = INFLUENZA VACCINE] Future Scheduled 2022-08-12 HEPATITIS B VACCINES Met [facility] Test 15:48:39 (1 of 3 - 3-dose series) [code = HEPATITIS B VACCINES (1 of 3 - 3-dose series)] Future Scheduled 2022-08-12 COVID-19 VACCINE (#1) [facility] Test 15:48:39 [code = COVID-19 VACCINE (#1)] Future Scheduled 2022-08-12 Hepatitis C screening [facility] Test 15:48:39 (procedure) [code = 372052007] Future Scheduled 2022-08-12 COLONOSCOPY SCREENING [facility] Test 15:48:39 [code = COLONOSCOPY SCREENING] Future Scheduled 2022-08-12 SHINGLES VACCINES (1 Met [facility] Test 15:48:39 of 2) [code = SHINGLES VACCINES (1 of 2)] Future Scheduled 2022-08-12 INFLUENZA VACCINE Method [facility] Test 15:48:39 [code = INFLUENZA VACCINE] Future Scheduled 2022-06-08 HEPATITIS B VACCINES Met [facility] Test 07:13:12 (1 of 3 - 3-dose series) [code = HEPATITIS B VACCINES (1 of 3 - 3-dose series)] Future Scheduled 2022-06-08 COVID-19 VACCINE (#1) [facility] Test 07:13:12 [code = COVID-19 VACCINE (#1)] Future Scheduled 2022-06-08 Hepatitis C screening [facility] Test 07:13:12 (procedure) [code = 787644955] Future Scheduled 2022-06-08 COLONOSCOPY SCREENING [facility] Test 07:13:12 [code = COLONOSCOPY SCREENING] Future Scheduled 2022-06-08 SHINGLES VACCINES (1 Met [facility] Test 07:13:12 of 2) [code = SHINGLES VACCINES (1 of 2)] Future Scheduled 2022-06-08 INFLUENZA VACCINE Method [facility] Test 07:13:12 [code = INFLUENZA VACCINE] Future Scheduled 2022-06-07 INFLUENZA VACCINE (#1) [facility] [code = INFLUENZA Medical Ce nter VACCINE (#1)] Future Scheduled 2022-06-02 HEPATITIS B VACCINES Met [facility] Test 09:02:10 (1 of 3 - 3-dose series) [code = HEPATITIS B VACCINES (1 of 3 - 3-dose series)] Future Scheduled 2022-06-02 COVID-19 VACCINE (#1) [facility] Test 09:02:10 [code = COVID-19 VACCINE (#1)] Future Scheduled 2022-06-02 Hepatitis C screening [facility] Test 09:02:10 (procedure) [code = 549387112] Future Scheduled 2022-06-02 COLONOSCOPY SCREENING [facility] Test 09:02:10 [code = COLONOSCOPY SCREENING] Future Scheduled 2022-06-02 SHINGLES VACCINES (1 Met [facility] Test 09:02:10 of 2) [code = SHINGLES VACCINES (1 of 2)] Future Scheduled 2022-06-02 INFLUENZA VACCINE Method [facility] Test 09:02:10 [code = INFLUENZA VACCINE] Future Scheduled 2014 SHINGLES VACCINES ([address] [facility] Test 00:00:00 of 2) [code = SHINGLES Medic al Center VACCINES (1 of 2)] Future Scheduled [address] [facility] Test 00:00:00 (procedure) [code = Medical Center [id number]] Future Scheduled 1983 DTAP/TDAP/TD VACCINES [facility] 00:[facility]:00 (1 - Tdap) [code = Medical C enter DTAP/TDAP/TD VACCINES (1 - Tdap)] Future Scheduled 1982 HEPATITIS C [facility]CRE[facility]ING [facility] 00:00:00 [code = HEPATITIS C Medical Center SCREENING] Future Scheduled [address] [facility] Test 00:00:00 Counseling and Medical Cente r Screening (12+) [code = Tobacco Cessation Counseling and Screening (12+)] Future Scheduled 1964 COVID-19 VACCINE (#1) [facility] 00:00:00 [code = COVID-[address] VACCINE (#1)] Future Scheduled [address] [facility] 00:00:00 (combo) [code = CT Medical C enter Colonography (combo)] Future Scheduled [address] [facility] 00:[facility]:00 malignant neoplasm of Medica l Center colon (procedure) [code = 786672139] Future Scheduled [address] [facility] Test 00:00:00 malignant neoplasm of Medica l Center colon (procedure) [code = 317460327] Future Scheduled [address] [facility] Test 00:00:00 malignant neoplasm of Medica l Center colon (procedure) [code = 410216767] Future Scheduled [address] [facility] Test 00:00:00 malignant neoplasm of Medica l Center colon (procedure) [code = 237193220] Future Scheduled 1965 Sigmoidoscopy [code = [facility]] Medical Cente r Encounters Start End Encounter Admission Attending Care Care Encounter Source Date/Time Date/Time Type Type Clinicians Facility Department ID 2022-10-02 Inpatient UR [facility] Gastro [id number] [facility] 13[facility]16:17 [facility] 2021-11-01 [id number] Common 11:06:24 Sammy [address] [facility] 2022-07-18 2022-07-18 Ambulatory nullFlavo MNA [id number] Memoria 18:30:00 18:30:00 Pre-Reg r Neurology 18 l Bosworth [place] 2022-07-18 2022-07-18 Ambulatory nullFlavo MNA [id number] Memoria 18:30:00 18:30:00 Pre-Reg r Neurology 18 l Danyelle [place] 2022-07-18 2022-07-18 Outpatient MASON CUEVAS [id number] Memoria 13:30:00 13:30:00 18 l [place] 2022-07-18 2022-07-18 Outpatient SHARDA Mcrae [id number] 13:30:00 13:30:00 Delfino Andujar 2022-05-15 2022-05-15 Ambulatory nullFlavo MNA [id number] Memoria 16:15:00 16:15:00 Pre-Reg r Neurology 15 l Danyelle Leroy 2022-05-15 2022-05-15 Ambulatory nullFlavo MNA [id number] Memoria 16:15:00 16:15:00 Pre-Reg r Neurology 15 l Danyelle Leroy 2022-05-15 2022-05-15 Outpatient MHIE NIKO [id number] Memoria 11:15:00 11:15:00 15 edel Leroy 2022-05-15 2022-05-15 [id number] 11:15:00 11:15:00 Delfino 15 Con 2022-04-05 2022-04-06 Outpatient nullFlavo MNA [id number] Memoria 13:45:00 04:59:59 r Neurology 17 l Danyelle Leroy 2022-04-05 2022-04-06 Outpatient nullFlavo MNA [id number] Memoria 13:45:00 04:59:59 r Neurology 17 l Danyelle Leroy 2022-04-05 2022-04-05 [facility] [id number] 08:45:00 23:59:59 Delfino 17 Con 2022-04-05 2022-04-05 Outpatient IE NIKO [id number] Memoria 08:45:00 08:45:00 17 edel Leroy 2022-03-09 2022-03-10 Outpatient nullFlavo MNA [id number] Memoria 18:15:00 04:59:59 r Neurology 16 l Danyelle Leroy 2022-03-09 2022-03-10 Outpatient nullFlavo MNA [id number] Memoria 18:15:00 04:59:59 r Neurology 16 l Danyelle Leroy 2022-03-09 2022-03-09 [id number] 13:15:00 23:59:59 Delfino 16 Con 2022-03-09 2022-03-09 Outpatient IE NIKO [id number] Memoria 13:15:00 13:15:00 16 edel Leroy 2021-11-08 2021-11-09 Outpatient nullFlavo MNA [id number] Memoria 17:30:00 05:59:59 r Neurology 14 l Danyelle Leroy 2021-11-08 2021-11-09 Outpatient nullFlavo MNA [id number] Memoria 17:30:00 05:59:59 r Neurology 14 l Danyelle Leroy 2021-11-08 2021-11-08 Outpatient Clementina [facility] [id number] 11:30:00 23:59:59 Delfino 14 Con 2021-11-08 2021-11-08 Outpatient MHIE IE [id number] Memoria 11:30:00 11:30:00 14 l Rad 2021-07-21 2021-07-21 Ambulatory nullFlavo MNA [id number] Memoria 18:30:00 18:30:00 Pre-Reg r Neurology 13 l Danyelle Leroy 2021-07-21 2021-07-21 Ambulatory nullFlavo MNA [id number] Memoria 18:30:00 18:30:00 Pre-Reg r Neurology 13 l Danyelle Leroy 2021-07-21 2021-07-21 Outpatient MHIE IE [id number] Memoria 13:30:00 13:30:00 13 l Rad 2021-07-21 2021-07-21 [facility] [id number] 13:30:00 13:30:00 Delfino 13 Con 2021-01-25 2021-01-27 Outside nullFlavo MNA [id number] Memoria 15:19:03 04:59:59 Medical r Neurology 00 l Records Danyelle Leroy 2021-01-25 2021-01-27 Outside nullFlavo MNA [id number] Memoria 15:19:03 04:59:59 Medical r Neurology 00 l Records Danyelle Leroy 2021-01-25 2021-01-26 Outpatient MISCHER MISCHER [id number] 10:19:03 23:59:59 00 2021-01-19 2021-01-20 Outpatient nullFlavo MNA [id number] Memoria 18:45:00 04:59:59 r Neurology 12 l Danyelle Leroy 2021-01-19 2021-01-20 Outpatient nullFlavo MNA [id number] Memoria 18:45:00 04:59:59 r Neurology 12 edel Leroy 2021-01-19 2021-01-19 [facility] [id number] 13:45:00 23:59:59 Delfino Rosetta Andujar 2021-01-19 2021-01-19 Outpatient MHIE IE [id number] Memoria 13:45:00 13:45:00 12 edel Leroy 2021-01-06 2021-01-06 Ambulatory nullFlavo MNA [id number] Memoria 18:00:00 18:00:00 Pre-Reg r Neurology 11 l Danyelle Leroy 2021-01-06 2021-01-06 Ambulatory nullFlavo MNA [id number] Memoria 18:00:00 18:00:00 Pre-Reg r Neurology 11 l Danyelle Leroy 2021-01-06 2021-01-06 Outpatient MHIE IE [id number] Memoria 13:00:00 13:00:00 11 edel Leroy 2021-01-06 2021-01-06 [facility] [id number] 13:00:00 13:00:00 Delfinocindy Andujar 2020-09-08 2020-09-08 Outpatient [facility] [id number] [place] 00:00:00 00:00:00 NIXON 055 Method i 2020-09-08 2020-09-08 [facility] [id number] [address] [place] [address] 00:00:00 00:00:00 NIXON 481 Method i 2020-08-25 2020-08-25 Ambulatory nullFlavo MNA [id number] Memoria 17:00:00 17:00:00 Pre-Reg r Neurology 08 l [facility] Rad 2020-08-25 2020-08-25 Ambulatory nullFlavo MNA [id number] Memoria 17:00:00 17:00:00 Pre-Reg r Neurology 09 l [facility] [facility] 2020-08-25 2020-08-25 Ambulatory nullFlavo MNA [id number] Memoria 17:00:00 17:00:00 Pre-Reg r Neurology 08 l [facility] [facility] 2020-08-25 2020-08-25 Ambulatory nullFlavo MNA [id number] Memoria 17:00:00 17:00:00 Pre-Reg r Neurology 09 l Danyelle Shelbyann 2020-08-25 2020-08-25 Outpatient MHIE MHIE [id number] Memoria 11:00:00 11:00:00 08 l [place] 2020-08-25 2020-08-25 Outpatient MHIE MHIE [id number] Memoria 11:00:00 11:00:00 09 l Rad 2020-08-25 2020-08-25 [facility] [id number] 11:00:00 11:00:00 Delfino 08 Con 2020-08-25 2020-08-25 [facility] [id number] 11:00:00 11:00:00 Delfino 09 Con 2020-07-19 2020-07-20 Outpatient nullFlavo MNA [id number] Memoria 18:00:00 04:59:59 r Neurology 10 l Bosworth [place] 2020-07-19 2020-07-20 Outpatient nullFlavo MNA [id number] Memoria 18:00:00 04:59:59 r Neurology 10 l [place] Rad 2020-07-19 2020-07-19 [facility] [id number] 13:00:00 23:59:59 Delfino 10 Con 2020-07-19 2020-07-19 Outpatient MHIE [id number] Memoria 13:00:00 13:00:00 10 edel Rad 2020-02-23 2020-02-24 Outpatient nullFlavo MNA [id number] Memoria 16:45:00 04:59:59 r Neurology 07 l Bosworth [place] 2020-02-23 2020-02-24 Outpatient nullFlavo MNA [id number] Memoria 16:45:00 04:59:59 r Neurology 07 l [place] Rad 2020-02-23 2020-02-23 Outpatient FRANCIS [facility]CHER [id number] 11:45:00 23:59:59 Delfino 07 Con 2020-02-23 2020-02-23 Outpatient MHIE MHIE [id number] Memoria 11:45:00 11:45:00 07 l [place] 2020-02-19 2020-02-19 [facility] [id number] Common 09:20:00 09:20:00 [facility] 2020-02-18 2020-02-18 [facility] [id number] Common 08:38:00 08:38:00 [facility] 2019-11-17 2019-11-17 Ambulatory nullFlavo MNA [id number] Memoria 19:15:00 19:15:00 Pre-Reg r Neurology 06 l [place] 2019-11-17 2019-11-17 Ambulatory nullFlavo MNA [id number] Memoria 19:15:00 19:15:00 Pre-Reg r Neurology 06 l Danyelle [place] 2019-11-17 2019-11-17 [facility] [id number] Common 15:20:00 15:20:00 [facility] 2019-11-17 2019-11-17 Outpatient MHIE MHIE [id number] Memoria 13:15:00 13:15:00 06 edel [place] 2019-11-17 2019-11-17 Outpatient NORMA McraeSCHDAVID [facility]CHER [id number] 13:15:00 13:15:00 Delfino Christa Andujar 2019-07-30 2019-07-30 [facility] [id number] Common 09:45:00 09:45:00 [facility] 2019-07-16 2019-07-17 Outpatient nullFlavo MNA [id number] Memoria 18:45:00 04:59:59 r Neurology 05 l [place] Rad 2019-07-16 2019-07-17 Outpatient nullFlavo MNA [id number] Memoria 18:45:00 04:59:59 r Neurology 05 l [place] Rad 2019-07-16 2019-07-16 Outpatient NORMA [facility]VID [facility] [id number] 13:45:00 23:59:59 Delfino Dallin Con 2019-07-16 2019-07-16 Ambulatory nullFlavo MNA [id number] Memoria 16:30:00 16:30:00 Pre-Reg r Neurology 04 l Danyelle Leroy 2019-07-16 2019-07-16 Ambulatory nullFlavo MNA [id number] Memoria 16:30:00 16:30:00 Pre-Reg r Neurology 04 l Danyelle Leroy 2019-07-16 2019-07-16 Outpatient MHIE MHIE [id number] Memoria 13:45:00 13:45:00 05 edel Leroy 2019-07-16 2019-07-16 Outpatient MHIE MHIE [id number] Memoria 11:30:00 11:30:00 04 edel Leroy 2019-07-16 2019-07-16 Outpatient FRANCIS McraeMISCHER [facility]ER [id number] 11:30:00 11:30:00 Delfino Pineda Andujar 2019-05-21 2019-05-21 [facility] [id number] Common 09:45:00 09:45:00 [facility] 2019-05-05 2019-05-05 Outpatient GHANSHYAM, [facility] [id number] [address] [place] [address] 00:00:00 00:00:00 NELLI Calvin Method i 2019-05-05 2019-05-05 Outpatient GHANSHYAM, [facility] [id number] [address] [place] [address] 00:00:00 00:00:00 NELLI Valdez Method i 2019-04-16 2019-04-17 Outpatient nullFlavo MNA [id number] Memoria 16:30:00 04:59:59 r Neurology 03 l Danyelle Leroy 2019-04-16 2019-04-17 Outpatient nullFlavo MNA [id number] Memoria 16:30:00 04:59:59 r Neurology 03 edel Leroy 2019-04-16 2019-04-16 Outpatient FRANCIS [facility]raeM[facility]ER [facility] [id number] 11:30:00 23:59:59 Delfino Freeman Andujar 2019-04-16 2019-04-16 Outpatient MHIE MHIE [id number] Memoria 11:30:00 11:30:00 03 edel Leroy 2019-04-02 2019-04-02 Ambulatory nullFlavo MNA [id number] Memoria 16:45:00 16:45:00 Pre-Reg r Neurology 02 l Danyelle Leroy 2019-04-02 2019-04-02 Ambulatory nullFlavo MNA [id number] Memoria 16:45:00 16:45:00 Pre-Reg r Neurology 02 l Danyelle Leroy 2019-04-02 2019-04-02 Outpatient MHIE MHIE [id number] Memoria 11:45:00 11:45:00 02 edel Leroy 2019-04-02 2019-04-02 Outpatient SHARDA Mcrae [facility] [id number] 11:45:00 11:45:00 Delfino Con 2019-03-19 2019-03-19 [facility] [id number] Common 15:39:00 15:39:00 [facility] 2019-03-04 2019-03-05 Outpatient nullFlavo MNA [id number] Memoria 18:00:00 04:59:59 r Neurology 01 l Danyelle Leroy 2019-03-04 2019-03-05 Outpatient nullFlavo MNA [id number] Memoria 18:00:00 04:59:59 r Neurology 01 l Danyelle Leroy 2019-03-04 2019-03-04 Outpatient SHARDA Mcrae [facility] [id number] 13:00:00 23:59:59 Delfino Con 2019-03-04 2019-03-04 Outpatient MHIE MHIE [id number] Memoria 13:00:00 13:00:00 01 edel Leroy 2019-02-04 2019-02-04 [facility] [id number] Common 14:15:00 14:15:00 [facility] 2019-01-28 2019-01-29 Outpatient nullFlavo MNA [id number] Memoria 19:30:00 04:59:59 r Neurology 00 l Danyelle Leroy 2019-01-28 2019-01-29 Outpatient nullFlavo MNA [id number] Memoria 19:30:00 04:59:59 r Neurology 00 l Danyelle Shelbyann 2019-01-28 2019-01-28 Outpatient NORMA McraeSCHDAVID [facility] [id number] 14:30:00 23:59:59 Delfino Torri Andujar 2019-01-02 2019-01-02 [facility] [id number] Common 13:41:00 13:41:[address] [facility] 2018-12-08 2018-12-08 [facility] [id number] Common 16:49:00 16:49:[address] [facility] 2018-12-04 2018-12-04 Out[facility] [id number] Common 13:59:00 13:59:[address] [facility] 2018-11-26 2018-11-26 [facility] [id number] Common 16:33:00 16:33:00 [facility] 2018-11-04 2018-11-04 [facility] [id number] Common 15:30:00 15:30:[address] [facility] 2018-10-30 2018-10-30 [facility] [id number] Common 15:49:00 15:49:00 t [facility] 2018-10-30 2018-10-30 [facility] [id number] Common 15:00:00 15:00:00 t [facility] Results This patient has no known results.
[2022-11-12 11:51] LABS: Absolute Lymphocytes (CBC) 0.4 K/uL (0.7-4.9); Hematocrit 25.3 % (39.6-49.0); Lymphocytes % 1.4 % (15.3-44.8); MCV 83.8 fL (80-100); MPV 6.4 fL (7.6-11.3); RBC Red Blood Cell Count 3.02 M/uL (4.33-5.43)
[2022-11-12 12:05] LABS: Potassium 4.9 mmol/L (3.5-5.1); Troponin High Sensitivity 5.6 pg/mL (<58.9)
--- NOTE | 2022-11-12 12:53 | EDPHYS ---
Physician Documentation [facility] Name: Beto Luevano Age: 57 yrs Sex: Male : 1965 Arrival Date: 11/12/2022 Time: 10:17 Bed 3 Private MD: ED Physician Hayes Torres HPI: 11/12 10:24 This 57 yrs old Male presents to ER via EMS with complaints of Low SpO2. sp3 10:24 57-year-old male with a history of ALS, diabetes, atrial fibrillation, hypertension, on sp3 a ventilator at care facility on room air presents to the ED for hypoxia ventilation circuit change. Facility notified EMS who arrived on scene to find patient in the 80% range for pulse oxygenation. They placed patient on the vent on assist control and 100% FiO2. He was transported to the ED here and in the process has been weaned down to 50% FiO2 still on assist control. Patient is on a baseline SIMV at the care facility. Communication is very limited secondary to patient not being able to speak however he denies any gross discomfort, current chest pain or difficulty breathing, or any other symptoms at this time.. Historical: - Allergies: 10:20 Ibuprofen; ld1 - PMHx: 10:20 ALS; diabetes mellitus; Atrial fibrillation; hernia repair; Hypertension; IA; ROSC; ld1 tracheostomy; - Immunization history:: Adult Immunizations up to date, Client reports receiving the 2nd dose of the Covid vaccine. - Social history:: Smoking status: Patient denies any tobacco usage or history of. Patient/guardian denies using alcohol. ROS: 10:26 Unable to obtain ROS due to patient is on ventilator. sp3 Exam: 10:27 Constitutional: This is a well developed, well nourished patient who is awake, alert, sp3 and in no acute distress. Eyes: Pupils equal round and reactive to light, extra-ocular motions intact. Lids and lashes normal. Conjunctiva and sclera are non-icteric and not injected. Cornea within normal limits. Periorbital areas with no swelling, redness, or edema. Neck: Trachea midline, no thyromegaly or masses palpated, and no cervical lymphadenopathy. Supple, full range of motion without nuchal rigidity, or vertebral point tenderness. No Meningismus. Chest/axilla: Normal chest wall appearance and motion. Nontender with no deformity. No lesions are appreciated. Cardiovascular: Regular rate and rhythm with a normal S1 and S2. No gallops, murmurs, or rubs. Normal PMI, no JVD. No pulse deficits. Respiratory: Lungs have equal breath sounds bilaterally, clear to auscultation and percussion. No rales, rhonchi or wheezes noted. No increased work of breathing, no retractions or nasal flaring. Skin: Warm, dry with normal turgor. Normal color with no rashes, no lesions, and no evidence of cellulitis. Psych: Awake, alert, with orientation to person, place and time. Behavior, mood, and affect are within normal limits. 12:49 ECG was reviewed by the Attending Physician. EKG demonstrates sinus tachycardia at 113 sp3 bpm with a first-degree AV block with a W[place] interval of [address]/T changes without evidence of acute ischemia with rate related and artifact on EKG. Vital Signs: 10:18 BP 124 / 94; Pulse 113; Resp 18; Temp 98.2(O); Pulse Ox 94% on 50% FiO2 ETT vent; ld1 11:26 BP 111 / 81; Pulse 112; Resp 20; Pulse Ox 97% on 50% FiO2 ETT vent; ld1 12:23 BP 109 / 86; Pulse 113; Resp 20; Pulse Ox 100% on 50% FiO2 ETT vent; ld1 13:00 BP 155 / 83; Pulse 114; Resp 20; Pulse Ox 100% on 30% FiO2 ETT vent; ld1 13:45 Temp 103.1(R); ld1 14:00 BP 97 / 78; Pulse 116; Resp 20; Pulse Ox 100% on 30% FiO2 ETT vent; ld1 15:00 BP 103 / 69; Pulse 116; Resp 20; Pulse Ox 95% on 30% FiO2 ETT vent; ld1 16:28 BP 94 / 58; Pulse 118; Resp 20; Pulse Ox 95% on 30% FiO2 ETT vent; ld1 18:55 BP 82 / 61; Pulse 120; Resp 18; Pulse Ox 98% on 30% FiO2 ETT vent; ld1 10:18 Trach ld1 MDM: 10:19 Patient medically screened. sp3 10:27 Data reviewed: vital signs, nurses notes, EMS record, care home records, EKG, sp3 radiologic studies. ED course: 57-year-old male with ALS and other pathology now with hypoxia that is resolving. Will obtain chest x-ray, EKG, laboratory values including VBG and provide respiratory support until fully evaluated. There is a chance the patient will be discharged if he is back to his baseline vent settings on room air. However if not, we will need to admit him for further respiratory support and elucidation of etiology.. 12:35 ED course: Still waiting on chest x-ray so I have not been able to assess lungs. Given sp3 WBC count we will go ahead and start antibiotics and get blood cultures. Patient will need to be admitted for hyponatremia anyways. Will discuss with inpatient team.. 12:50 ED course: Given WBC count and heart rate, with diagnosis of pneumonia patient meets sp3 SIRS criteria however fluid bolus was not given secondary to hyponatremia and the danger of rapid correction. Will defer to inpatient team for further fluid management however normal saline at 75 MLS per hour has been started in the ED.. 11/12 10:19 Order name: Basic Metabolic Panel; Complete Time: 12:08 sp3 11/12 10:19 Order name: CBC with Diff sp3 11/12 10:19 Order name: NT PRO-BNP; Complete Time: 12:08 sp3 11/12 10:19 Order name: Troponin HS; Complete Time: 12:08 sp3 11/12 10:19 Order name: ABG: VBG Please!!! sp3 11/12 12:51 Order name: Blood Culture Adult (2) sp3 11/12 13:18 Order name: Manual Differential EDMS 11/12 14:44 Order name: SARS-COV-2 Antigen Rapid 11/12 15:44 Order name: SARS-COV-2 Antigen Rapid EDCO 11/12 16:04 Order name: Osmolality, Serum EDMS 11/12 16:10 Order name: Hemoglobin A1c EDCO 11/12 16:17 Order name: Creatine Phosphokinase EDCO 11/12 16:17 Order name: T4 Free EDMS 11/12 16:17 Order name: Magnesium EDCO 11/12 16:17 Order name: Thyroid Stimulating Hormone EDCO 11/12 16:19 Order name: Sodium Level EDMS 11/12 16:20 Order name: Basic Metabolic Panel EDMS 11/12 16:20 Order name: Lipid Profile EDMS 11/12 17:49 Order name: Comprehensive Metabolic Panel EDMS 11/12 17:49 Order name: Uric Acid EDMS 11/12 17:49 Order name: Phosphorus EDMS 11/12 18:27 Order name: UR SODIUM EDMS 11/12 18:27 Order name: UR POTASSIUM EDMS 11/12 18:27 Order name: UR CL RANDOM EDMS 11/12 18:33 Order name: UR CREAT EDMS 11/12 18:58 Order name: Urinalysis W/Microscopic EDMS 11/12 19:15 Order name: Comprehensive Metabolic Panel EDMS 11/12 19:15 Order name: Uric Acid EDMS 11/12 19:15 Order name: Phosphorus EDMS 11/12 19:52 Order name: Basic Metabolic Panel EDMS 11/12 10:19 Order name: XRAY Chest (1 view) sp3 11/12 10:19 Order name: EKG; Complete Time: 10:20 sp3 11/12 10:19 Order name: Cardiac monitoring; Complete Time: 10:24 sp3 11/12 10:19 Order name: EKG - Nurse/Tech; Complete Time: 10:40 sp3 11/12 10:19 Order name: IV Saline Lock; Complete Time: 11:33 sp3 11/12 10:19 Order name: Labs collected and sent; Complete Time: 11:33 sp3 11/12 10:19 Order name: O2 Sat Monitoring; Complete Time: 10:25 sp3 11/12 14:36 Order name: NPO EDMS 11/12 20:07 Order name: Osmolality, Urine EDMS 11/12 20:07 Order name: Osmolality, Serum EDMS 11/12 23:51 Order name: Basic Metabolic Panel EDMS Administered Medications: 13:21 Drug: NS 0.9% 1000 ml Route: IV; Rate: 75 ml/hr; Site: left antecubital; ld1 14:00 Drug: Tylenol Suppository 650 mg Route: WV; ld1 14:32 Drug: Cefepime 1 grams Route: IVPB; Rate: 200 ml/hr; Infused Over: 30 mins; Site: left ld1 antecubital; 15:06 Follow up: Response: No adverse reaction; IV Status: Completed infusion ld1 15:06 Drug: vancoMYCIN 1 grams Route: IVPB; Infused Over: 2 hrs; Site: left antecubital; ld1 Disposition Summary: 11/12/22 12:53 Hospitalization Ordered Hospitalization Status: Inpatient Admission sp3 Condition: Stable sp3 Problem: an acute exacerbation sp3 Symptoms: have worsened sp3 Bed/Room Type: Standard sp3 Provider: Sammy Ordaz(11/12/22 17:09) sp3 Location: Intensive Care Unit(11/12/22 23:53) cg Room Assignment: 2-(11/12/22 23:53) cg Diagnosis - Pneumonia, Hyponatremia, ALS sp3 Forms: - Medication Reconciliation Form sp3 - SBAR form sp3 Signatures: Dispatcher [employer] EDMS Della Duran RN RN ss Sugey Boyce RN RN cg Rosaura Long RN RN ld1 Hayes Torres MD MD sp3 Corrections: (The following items were deleted from the chart) 17:09 12:53 Haris Whitney sp3 sp3 17:09 12:53 Telemetry/MedSurg (Inpatient) sp3 sp3 17:09 12:53 sp3 sp3 17:55 17:09 Intensive Care Unit sp3 ss 17:55 17:09 sp3 ss 21:57 17:55 [facility] ER HOLD ss cg 21:57 17:55 ERHOLD- ss cg 23:53 21:57 Telemetry/MedSurg (Inpatient) cg cg 23:53 21:57 cg cg
--- NOTE | 2022-11-12 12:53 | ER ---
Nurse's Notes [facility] Name: Beto Luevano Age: 57 yrs Sex: Male : 1965 Arrival Date: 11/12/2022 Time: 10:17 Bed 3 Private MD: Diagnosis: Pneumonia, Hyponatremia, ALS Presentation: 11/12 10:18 Chief complaint: EMS states: toned out to pt home for low SpO2 - upon arrival to home ld1 EMS reports SpO2 86%. Upon arrival to ER pt was on EMS vent at 98% SpO2. Pt denies pain. Coronavirus screen: At this time, the client does not indicate any symptoms associated with coronavirus-19. Ebola Screen: No symptoms or risks identified at this time. Initial Sepsis Screen: Does the patient meet any 2 criteria? No. Patient's initial sepsis screen is negative. Does the patient have a suspected source of infection? No. Patient's initial sepsis screen is negative. Risk Assessment: Do you want to hurt yourself or someone else? Patient reports no desire to harm self or others. Onset of symptoms was November 12, 2022. 10:18 Method Of Arrival: EMS: [facility] ld1 10:18 Acuity: JUAN 3 ld1 Triage Assessment: 10:20 General: Appears in no apparent distress. comfortable, Behavior is calm, cooperative, ld1 appropriate for age. Pain: Denies pain. EENT: No signs and/or symptoms were reported regarding the EENT system. Neuro: Level of Consciousness is awake, alert, obeys commands, Oriented to person, place, time, situation, Appropriate for age. Cardiovascular: Capillary refill < 3 seconds Patient's skin is warm and dry. Rhythm is sinus tachycardia. Respiratory: Airway via trache Respiratory effort is even, unlabored, Ventilator assessment: Ventilator Mode: Assist Control (AC) Tidal Volume: 420 Respiratory Rate: 16 FiO2: 50 PEEP: 5 RT at bedside. GI: Abdomen is flat, non-distended. : No signs and/or symptoms were reported regarding the genitourinary system. Derm: No signs and/or symptoms reported regarding the dermatologic system. Musculoskeletal: No signs and/or symptoms reported regarding the musculoskeletal system. Historical: - Allergies: 10:20 Ibuprofen; ld1 - PMHx: 10:20 ALS; diabetes mellitus; Atrial fibrillation; hernia repair; Hypertension; AK; ROSC; ld1 tracheostomy; - Immunization history:: Adult Immunizations up to date, Client reports receiving the 2nd dose of the Covid vaccine. - Social history:: Smoking status: Patient denies any tobacco usage or history of. Patient/guardian denies using alcohol. Screenin:23 [facility] ED Fall Risk Assessment (Adult) History of falling in the last 3 months, ld1 including since admission No falls in past 3 months (0 pts). Abuse screen: Denies threats or abuse. Denies injuries from another. Nutritional screening: No deficits noted. Tuberculosis screening: No symptoms or risk factors identified. Assessment: 10:23 Reassessment: See triage assessment. ld1 10:41 Respiratory: Ventilator assessment: Ventilator Mode: Synchronized Intermittent ld1 Mandatory Ventilation (SIMV). Respiratory Rate: 20 Pressure Support: 8 Suction provided. 11:27 Reassessment: Patient appears in no apparent distress at this time. No changes from ld1 previously documented assessment. Patient and/or family updated on plan of care and expected duration. Pain level reassessed. 12:23 Reassessment: Patient appears in no apparent distress at this time. No changes from ld1 previously documented assessment. Patient and/or family updated on plan of care and expected duration. Pain level reassessed. 14:00 Reassessment: Pt continuously requesting assistance to reposition. Unable to get ld1 comfortable. Daughter at bedside assisting patient with comfort. RT called to bedside to assist. 15:30 Reassessment: Patient appears in no apparent distress at this time. Son at bedside. Pt ld1 repositioned for comfort. Shakes head "Yes" when asked if reposition made him feel better. 16:32 Reassessment: Patient appears in no apparent distress at this time. Repositioned, ld1 placed in hospital bed, replaced alonso with 18Fr coude, cleaned of incontinence. Vital Signs: 10:18 BP 124 / 94; Pulse 113; Resp 18; Temp 98.2(O); Pulse Ox 94% on 50% FiO2 ETT vent; ld1 11:26 BP 111 / 81; Pulse 112; Resp 20; Pulse Ox 97% on 50% FiO2 ETT vent; ld1 12:23 BP 109 / 86; Pulse 113; Resp 20; Pulse Ox 100% on 50% FiO2 ETT vent; ld1 13:00 BP 155 / 83; Pulse 114; Resp 20; Pulse Ox 100% on 30% FiO2 ETT vent; ld1 13:45 Temp 103.1(R); ld1 14:00 BP 97 / 78; Pulse 116; Resp 20; Pulse Ox 100% on 30% FiO2 ETT vent; ld1 15:00 BP 103 / 69; Pulse 116; Resp 20; Pulse Ox 95% on 30% FiO2 ETT vent; ld1 16:28 BP 94 / 58; Pulse 118; Resp 20; Pulse Ox 95% on 30% FiO2 ETT vent; ld1 18:55 BP 82 / 61; Pulse 120; Resp 18; Pulse Ox 98% on 30% FiO2 ETT vent; ld1 10:18 Trach ld1 ED Course: 10:17 Patient arrived in ED. ss 10:17 Rosaura Long, GARETH is Primary Nurse. ld1 10:17 Hayes Torres MD is Attending Physician. sp3 10:20 Triage completed. ld1 10:20 Arm band placed on right wrist. ld1 10:23 Patient has correct armband on for positive identification. Placed in gown. Bed in low ld1 position. Call light in reach. Side rails up X2. retirement manager on. Pulse ox on. NIBP on. Door closed. Noise minimized. Warm blanket given. 10:23 No provider procedures requiring assistance completed. ld1 10:40 Missed attempt(s): 22 gauge in left antecubital area. Bleeding controlled, band aid jl7 applied, catheter tip intact. 10:45 Missed attempt(s): 22 gauge in right antecubital area. Bleeding controlled, band aid jl7 applied, catheter tip intact. 10:47 Missed attempt(s): 24 gauge in right upper arm. Bleeding controlled, band aid applied, jl7 catheter tip intact. 11:00 Head of bed elevated. Turned Placed pillows between knees and feet. Cleaned of ld1 incontinence. Linen changed. 11:32 Inserted saline lock: 22 gauge in left antecubital area, using aseptic technique. Blood ld1 collected. 12:52 Haris Whitney MD is Hospitalizing Provider. sp3 13:07 XRAY Chest (1 view) In Process Unspecified. EDMS 13:25 First set of blood cultures drawn by me. em1 15:28 SARS-COV-2 Antigen Rapid Sent. em1 16:28 Repositioned patient. Cleaned of incontinence. Linen changed. ld1 16:28 Alonso cath removed intact, balloon deflated. ld1 16:57 Coud inserted, using sterile technique, 18 Fr. Returned clear yellow urine. Patient ld1 tolerated well. 17:08 Sammy Ordaz MD is Hospitalizing Provider. sp3 Administered Medications: 13:21 Drug: NS 0.9% 1000 ml Route: IV; Rate: 75 ml/hr; Site: left antecubital; ld1 14:00 Drug: Tylenol Suppository 650 mg Route: TN; ld1 14:32 Drug: Cefepime 1 grams Route: IVPB; Rate: 200 ml/hr; Infused Over: 30 mins; Site: left ld1 antecubital; 15:06 Follow up: Response: No adverse reaction; IV Status: Completed infusion ld1 15:06 Drug: vancoMYCIN 1 grams Route: IVPB; Infused Over: 2 hrs; Site: left antecubital; ld1 Medication: 10:23 VIS not applicable for this client. ld1 Outcome: 12:53 Decision to Hospitalize by Provider. sp3 07 01:36 Patient left the ED. bb Signatures: Dispatcher [employer] EDMS Fanny Mancuso RN RN bb Martinez, Eric em1 Della Duran RN RN ss Leal, Jahala, RN RN jl7 Rosaura Long RN RN ld1 Hayes Torres MD MD sp3
--- NOTE | 2022-11-12 13:11 | RAD REPORT ---
EXAM DESCRIPTION: Dion Single View11/12/2022 1:05 pm CLINICAL HISTORY: Shortness of breath COMPARISON: September 2022 FINDINGS: Moderate to marked bilateral pulmonary opacities. The heart is normal size. Tracheostomy tube in place IMPRESSION: Moderate to marked bilateral pulmonary opacities may indicate pneumonia
[2022-11-12 13:18] LABS: Basophilic Stippling 1+; Blood Morphology Comment NOTED (NOT SEEN); Platelet Estimate INCR
[2022-11-12] MEDS ORDERED: NA CHLORIDE 0.9% 1,000 ML ONE (13:20)
[2022-11-12] MEDS ORDERED: NA CHLORIDE 0.9% 100 ML ONE (13:36)
[2022-11-12] MEDS ORDERED: NA CHLORIDE 0.9% 250 ML ONE (13:36)
[2022-11-12] MEDS ORDERED: VANCOMYCIN 1 GM/VIAL ONE (13:36)
[2022-11-12] MEDS ORDERED: CEFEPIME 1 GM/VIAL ONE (13:37)
[2022-11-12] MEDS ORDERED: SODIUM CHLORIDE 0.9% 10ML INJ IV PRN (14:35)
[2022-11-12] MEDS ORDERED: ONDANSETRON 4 MG/2 ML VIAL IV PRN ×2 (14:46→17:43)
[2022-11-12] MEDS ORDERED: LABETALOL 20 MG/4ML SYRINGE IV PRN (14:49)
--- NOTE | 2022-11-12 14:56 | P.HP ---
Certification for Inpatient Patient admitted to: Inpatient With expected LOS: >2 Midnights Patient will require the following post-hospital care: None Practitioner: I am a practitioner with admitting privileges, knowledge of patient current condition, hospital course, and medical plan of care. Services: Services provided to patient in accordance with Admission requirements found in Title 42 Section 412.3 of the Code of Federal Regulations Patient History Date of Service: 11/12/22 Reason for admission: SOB History of Present Illness: Patient is a 57-year-old male with a past medical history significant for ALS, DM 2, atrial fibrillation, hypertension who presents with complaint of shortness of breath. Patient currently on vent support via trach and unable to communicate appropriately. Per nursing staff report patient was on room air at home and family reported that patient started having shortness of breath yesterday. Family attempted suctioning and other measures to improve patient's oxygenation but patient continued to have shortness of breath. Shortness of breath continued today and patient's O2 sat was noted to be in the 80s on room air. No other signs and symptoms reported. Symptoms are aggravated or relieved by nothing. Patient was brought to the hospital due to worsening symptoms. Allergies ibuprofen Allergy (Verified 06/25/22 18:53) Hives Home Medications: Aspirin [Adult Low Dose Aspirin EC] 81 mg PO DAILY 12/02/18 Rivaroxaban [Xarelto] 20 mg PO DAILY 90 Days #90 tablet 12/03/18 Baclofen 10 mg PO BID 08/05/22 Gabapentin 300 mg PO DAILY 08/05/22 Riluzole 50 mg PO BID 08/05/22 Amiodarone HCl [Cordarone*] 200 mg FT BID 90 Days #180 tab NS 08/12/22 Diltiazem Tab [Cardizem Tab*] 30 mg PO Q8H 90 Days #270 tab NS 08/12/22 Metoprolol Tartrate [Lopressor*] 50 mg PO Q8HR 90 Days #270 tab NS 08/12/22 Pantoprazole Sodium [Protonix] 40 mg PO DAILY 90 Days #90 syr 08/12/22 Hyoscyamine Sulfate 0.125 mg PO Q4HR PRN 09/29/22 LORazepam [Lorazepam] 0.5 mg PO Q2HR PRN 09/29/22 Morphine Sulfate 0.5 - 1 ml FT Q4HR PRN 09/29/22 Nutritional Supplement [Boost Max] 325 ml PO TID 09/29/22 Promethazine HCl 25 mg PO Q4HR PRN 09/29/22 Sennosides [Lynn-Guerline] 8.6 mg PO DAILY 09/29/22 Tamsulosin [Flomax] 0.4 mg PO DAILY 09/29/22 Levofloxacin [Levaquin] 500 mg FT DAILY 4 Days #4 10/05/22 - Past Medical/Surgical History Diabetic: Yes -: HTN -: hyperlipidemia -: NIDDM -: L ankle fx -: pancreatitis -: als -: L ankle surgery -: trach - Family History Father -: Hypertension, Diabetes Mother -: Hypertension, Cancer Notes: liver ca with mets - Social History Smoking Status: Unknown if ever smoked Alcohol use: Yes CD- Drugs: No Caffeine use: Yes Review of Systems is unable to be obtained (Unable to assess. Patient unable to communicate.) Physical Examination - Physical Exam General: Alert, In no apparent distress, Oriented x3, Cooperative HEENT: Atraumatic, PERRLA, EOMI, Sclerae nonicteric Neck: Supple, 2+ carotid pulse no bruit, No LAD, Without JVD or thyroid abnormality Respiratory: Diminished Cardiovascular: No edema, Irregular heart rate/rhythm Capillary refill: <2 Seconds Gastrointestinal: Normal bowel sounds, Soft and benign, No tenderness Musculoskeletal: No clubbing, No erythema, No tenderness Integumentary: No rashes, No breakdown, No significant lesion Neurological: Normal speech, Normal tone, Normal affect Lymphatics: No axilla or inguinal lymphadenopathy - Studies Laboratory Data (last 24 hrs) 11/12/22 11:33: WBC 26.50 H*, Hgb 8.5 L, Hct 25.3 L, Plt Count 427 H 11/12/22 11:33: Sodium 120 L, Potassium 4.9, BUN 16, Creatinine 0.48 L, Glucose 201 H Assessment and Plan - Plan --Acute respiratory failure with hypoxia. Secondary to pneumonia. Pulmonology consulted. Patient placed on antibiotics and steroid. Continue mechanical ventilation via trach. Further management per nursery hand. --Pneumonia. Blood cultures pending. Continue antibiotics. --Hyponatremia. Will trend BMP. Nephrology consulted. Serum\urine osmolality, serum\urine sodium pending. Will await further recommendation from pugger helper. --History of ALS. Continue supportive care. --Atrial fibrillation. Patient on Xarelto at home. Continue home medication when bedside swallow completed and patient is able to swallow. Continue albuterol when appropriate and Lovenox subQ. --History of tracheostomy. Patient previously on room air. Patient now on vent support. Continue trach care. -- DM2 with neuropathy. BS monitoring with sliding scale insulin. Continue gabapentin when appropriate. --Hypertension. Stable. Continue p.o. home medications when appropriate. We will manage BP with labetalol as needed. -- Hypomagnesemia. Replete as needed. --History of MT. Continue aspirin when appropriate. --Sepsis POA. Blood cultures pending. Continue antibiotics. --Anemia of chronic disease. H&H stable. We will continue to monitor hemoglobin and transfuse if less than 7.0. --GERD. Continue Protonix. --DVT prophylaxis with Lovenox subQ Discharge Plan: Home Plan to discharge in: Greater than 2 days - Advance Directives Does patient have a Living Will: No Does patient have a Durable POA for Healthcare: No - Code Status/Comfort Care Code Status Assessed: Yes Physician Review: Patient Assessed, Agree with Above Assessment and Plan Critical Care: No
[2022-11-12] MEDS ORDERED: ENOXAPARIN 40 MG/0.4 ML SQ SCH (15:00)
[2022-11-12] MEDS ORDERED: PANTOPRAZOLE 40 MG INJ ONE (15:28)
[2022-11-12] MEDS ORDERED: ENOXAPARIN 40 MG/0.4 ML SQ ONE (15:28)
[2022-11-12 15:44] LABS: SARS-CoV-2 Antigen Rapid Res Negative (Negative)
[2022-11-12] MEDS ORDERED: PANTOPRAZOLE 40 MG INJ IVP SCH (16:00)
[2022-11-12 16:11] LABS: Potassium 5.4 mmol/L (3.5-5.1); Thyroid Stimulating Hormone 1.91 uIU/mL (0.358-3.740)
[2022-11-12] MEDS ORDERED: ACETAMINOPHEN 650MG/RECT SUPP PR ONE (16:14)
[2022-11-12 16:17] LABS: Magnesium 1.4 mg/dL (1.6-2.4)
[2022-11-12] MEDS ORDERED: MAGNESIUM SULFATE 1 gm IVPB 1 GM/100 ML BAG IV ONE ×2 (16:49→17:45)
[2022-11-12] MEDS ORDERED: ALBUTEROL 2.5 MG/3 ML NEB SOL NEB PRN (17:43)
[2022-11-12 17:48] LABS: Albumin 2.1 g/dL (3.4-5.0); Bilirubin Total 0.9 mg/dL (0.2-1.0); Phosphorus 3.3 mg/dL (2.5-4.9); Potassium 5.5 mmol/L (3.5-5.1); Protein, Total 6.3 g/dL (6.4-8.2)
--- NOTE | 2022-11-12 17:53 | P.HP ---
Certification for Inpatient Patient admitted to: Inpatient With expected LOS: >2 Midnights Practitioner: I am a practitioner with admitting privileges, knowledge of patient current condition, hospital course, and medical plan of care. Services: Services provided to patient in accordance with Admission requirements found in Title 42 Section 412.3 of the Code of Federal Regulations Patient History Date of Service: 11/12/22 Primary Care Provider: Orlin Reason for admission: SOB History of Present Illness: Patient is an unfortunate patient with advanced ALS. He is at home Was getting weak and brought to the ER. He was found to have a pneumonia. He is on a chronic vent. the patient is not able to speak due to this. Will admit him to the icu. The patient needs vent management. Allergies ibuprofen Allergy (Verified 06/25/22 18:53) Hives Home Medications: Aspirin [Adult Low Dose Aspirin EC] 81 mg PO DAILY 12/02/18 Rivaroxaban [Xarelto] 20 mg PO DAILY 90 Days #90 tablet 12/03/18 Baclofen 10 mg PO BID 08/05/22 Gabapentin 300 mg PO DAILY 08/05/22 Riluzole 50 mg PO BID 08/05/22 Amiodarone HCl [Cordarone*] 200 mg FT BID 90 Days #180 tab NS 08/12/22 Diltiazem Tab [Cardizem Tab*] 30 mg PO Q8H 90 Days #270 tab NS 08/12/22 Metoprolol Tartrate [Lopressor*] 50 mg PO Q8HR 90 Days #270 tab NS 08/12/22 Pantoprazole Sodium [Protonix] 40 mg PO DAILY 90 Days #90 syr 08/12/22 Hyoscyamine Sulfate 0.125 mg PO Q4HR PRN 09/29/22 LORazepam [Lorazepam] 0.5 mg PO Q2HR PRN 09/29/22 Morphine Sulfate 0.5 - 1 ml FT Q4HR PRN 09/29/22 Nutritional Supplement [Boost Max] 325 ml PO TID 09/29/22 Promethazine HCl 25 mg PO Q4HR PRN 09/29/22 Sennosides [Lynn-Guerline] 8.6 mg PO DAILY 09/29/22 Tamsulosin [Flomax] 0.4 mg PO DAILY 09/29/22 Levofloxacin [Levaquin] 500 mg FT DAILY 4 Days #4 10/05/22 - Past Medical/Surgical History Diabetic: Yes -: HTN -: hyperlipidemia -: NIDDM -: L ankle fx -: pancreatitis -: als -: L ankle surgery -: trach - Family History Father -: Hypertension, Diabetes Mother -: Hypertension, Cancer Notes: liver ca with mets - Social History Smoking Status: Unknown if ever smoked Alcohol use: Yes CD- Drugs: No Caffeine use: Yes Review of Systems is unable to be obtained Physical Examination - Vital Signs Temperature: 103.1 F Blood Pressure: 87/57 Pulse: 120 Respirations: 20 Pulse Ox (%): 96 - Physical Exam General: Alert, In no apparent distress HEENT: Atraumatic, PERRLA, Mucous membr. moist/pink, EOMI, Sclerae nonicteric Neck: Supple, 2+ carotid pulse no bruit, No LAD, Without JVD or thyroid abnormality Respiratory: Clear to auscultation bilaterally, Diminished Cardiovascular: Regular rate/rhythm, Normal S1 S2 Gastrointestinal: Normal bowel sounds, No tenderness Musculoskeletal: No tenderness Integumentary: No rashes Neurological: Normal gait, Normal speech, Normal strength at 5/5 x4 extr, Normal tone, Normal affect Lymphatics: No axilla or inguinal lymphadenopathy - Studies Laboratory Data (last 24 hrs) 11/12/22 11:33: WBC 26.50 H*, Hgb 8.5 L, Hct 25.3 L, Plt Count 427 H 11/12/22 11:33: Sodium 120 L, Potassium 4.9, BUN 16, Creatinine 0.48 L, Glucose 201 H Assessment and Plan - Problems (Diagnosis) (1) Pneumonia Current Visit: Yes Status: Acute Plan: admit to the unit continue fluids and antibiotics. Will await blood cultures. consult to Dr. Beaver Qualifiers: Pneumonia type: due to unspecified organism Laterality: bilateral Lung location: lower lobe of lung Qualified Code(s): J18.9 - Pneumonia, unspecified organism (2) Atrial fibrillation Current Visit: No Status: Acute Plan: Patient is stable. Will continue amiodarone and metoprolol Qualifiers: Atrial fibrillation type: paroxysmal Qualified Code(s): I48.0 - Paroxysmal atrial fibrillation (3) HTN (hypertension) Current Visit: No Status: Chronic Plan: He is currently hypotensive. Will hold the diltiazem Qualifiers: Hypertension type: primary hypertension Qualified Code(s): I10 - Essential (primary) hypertension (4) Respiratory muscle paralysis Current Visit: No Status: Chronic Plan: continue chronic vent management Discharge Plan: Home Plan to discharge in: Greater than 2 days - Advance Directives Does patient have a Living Will: No Does patient have a Durable POA for Healthcare: No - Code Status/Comfort Care Code Status Assessed: Yes Code Status: Full Code Physician Review: Patient Assessed, Agree with Above Assessment and Plan Critical Care: Yes Time Spent Managing Pts Care (In Minutes): 45
[2022-11-12] MEDS: NA CHLORIDE 0.9% 1,000 ML IV SCH (18:00)
[2022-11-12 18:29] LABS: Specific Gravity 1.013 (1.005-1.030); Urine Bacteria <20 /HPF (<20); Urine Bilirubin NEGATIVE (Negative); Urine Blood 3+ (OVER) (Negative); Urine Clarity Turbid (Clear); Urine Color Yellow (Yellow); Urine Glucose NEGATIVE (Negative); Urine Mucus Slight /HPF (None Seen); Urine Protein 1+ (Negative); Urine RBC >50 /HPF (None Seen); Urine Urobilinogen 1+ (Normal); Urine WBC Clump Many /HPF (None Seen)
[2022-11-12 19:11] LABS: Albumin 1.8 g/dL (3.4-5.0); Bilirubin Total 0.9 mg/dL (0.2-1.0); Phosphorus 2.7 mg/dL (2.5-4.9); Uric Acid 3.9 mg/dL (3.5-7.2)
[2022-11-12] MEDS ORDERED: IPRATROPIUM BROM 0.5MG/2.5ML ONE (19:33)
[2022-11-12] MEDS ORDERED: ALBUTEROL 2.5 MG/3 ML NEB SOL ONE (19:33)
[2022-11-12] MEDS ORDERED: NA CHLORIDE 0.9% 250 ML IV PRN (19:45)
[2022-11-12 19:51] LABS: Potassium 5.6 mmol/L (3.5-5.1)
[2022-11-12] MEDS ORDERED: ALBUTEROL 2.5 MG/3 ML NEB SOL NEB SCH (20:00)
[2022-11-12] MEDS: IPRATROPIUM BROM 0.5MG/2.5ML NEB SCH (20:00)
[2022-11-12] MEDS: NUTRITIONAL SUPPLEMENT PO SCH (21:00)
[2022-11-12] MEDS: BACLOFEN 10 MG TAB PO SCH (21:00)
[2022-11-12] MEDS: AMIODARONE HCL 200 MG TAB FT SCH (21:00)
[2022-11-12] MEDS ORDERED: SODIUM ZIRCONIUM CYCLOSILICATE 10 GM/PKT FT ONE (21:00)
[2022-11-12] MEDS: SODIUM CHLORIDE 1 GM TAB FT SCH ×2 (21:04→23:04)
[2022-11-12] MEDS ORDERED: ALBUMIN HUMAN 25% 200 ML IV ONE (21:15)
[2022-11-12] MEDS ORDERED: AMIODARONE HCL 200 MG TAB ONE (22:45)
[2022-11-12] MEDS ORDERED: ALBUMIN HUMAN 25% 50 ML IV ONE (22:46)
[2022-11-12 23:50] LABS: Potassium 4.8 mmol/L (3.5-5.1)
[2022-11-13] MEDS: METOPROLOL TAR 50 MG TAB PO SCH ×3 (01:00→17:00)
[2022-11-13] MEDS ORDERED: NA CHLORIDE 0.9% 1,000 ML ONE (01:16)
[2022-11-13] MEDS: IPRATROPIUM BROM 0.5MG/2.5ML NEB SCH ×4 (01:25→20:50)
[2022-11-13] MEDS: SODIUM CHLORIDE 1 GM TAB FT SCH ×6 (01:52→20:12)
[2022-11-13] MEDS: LORAZEPAM 0.5 MG TABLET PO PRN (01:54)
[2022-11-13 04:21] LABS: Absolute Lymphocytes (CBC) 0.2 K/uL (0.7-4.9); Lymphocytes % 1.1 % (15.3-44.8); MCV 82.9 fL (80-100); MPV 6.6 fL (7.6-11.3)
[2022-11-13 04:26] LABS: Hematocrit 19.9 % (39.6-49.0)
[2022-11-13 04:52] LABS: Albumin 2.1 g/dL (3.4-5.0); Bilirubin Total 1.4 mg/dL (0.2-1.0); Potassium 4.2 mmol/L (3.5-5.1); Protein, Total 6.2 g/dL (6.4-8.2); Thyroid Stimulating Hormone 3.24 uIU/mL (0.358-3.740); Uric Acid 4.1 mg/dL (3.5-7.2)
[2022-11-13] MEDS: NA CHLORIDE 0.9% 1,000 ML IV SCH ×2 (07:20→20:14)
[2022-11-13] MEDS ORDERED: SODIUM CHLORIDE 1 GM TAB PO SCH (08:00)
[2022-11-13 08:42] LABS: Magnesium 1.8 mg/dL (1.6-2.4); Phosphorus 2.3 mg/dL (2.5-4.9); Potassium 4.5 mmol/L (3.5-5.1)
[2022-11-13] MEDS ORDERED: PANTOPRAZOLE 40MG TABLET PO SCH (09:00)
[2022-11-13] MEDS ORDERED: RIVAROXABAN 20 MG TABLET PO SCH (09:00)
[2022-11-13] MEDS ORDERED: CEFTRIAXONE 1,000 MG in NA CHLORIDE 0.9% 50 ML IVPB SCH (09:00)
[2022-11-13] MEDS: NUTRITIONAL SUPPLEMENT PO SCH ×3 (09:00→20:15)
[2022-11-13] MEDS ORDERED: AZITHROMYCIN IV 500 MG in NA CHLORIDE 0.9% 250 ML IVPB SCH (09:00)
[2022-11-13] MEDS: VANCOMYCIN 1 GM in NA CHLORIDE 0.9% 250 ML IVPB SCH ×2 (09:21→20:11)
[2022-11-13] MEDS: Meropenem 1,000 MG in NA CHLORIDE 0.9% 100 ML IV SCH ×2 (09:21→18:30)
--- NOTE | 2022-11-13 10:11 | RAD REPORT ---
EXAM DESCRIPTION: RAD - ENTEROSTOMY TUBE CHECK W/CONTR - 11/13/2022 9:53 am CLINICAL HISTORY: G tube placement confirmation COMPARISON: No comparisons FINDINGS: There were 2 KUB images obtained prior to and subsequent to retrograde injection of contra st via NG tube. The initial image shows G-tube in place in the midline abdomen. Stomach is not dilated. Air is seen i n nondilated small bowel. Following retrograde injection, contrast is seen within the contracted gastric lumen. A small amount of contrast has extended into the duodenal C-loop. Focus of contrast along the right lateral margin o f the G-tube does not clearly demonstrate gastric mucosal folds. Small amount of extraluminal contras t cannot be excluded. IMPRESSION: Questionable extraluminal contrast along the right lateral margin of the G-tube. CT abdomen examination without oral or IV contrast could be performed for more definitive assessment.
--- NOTE | 2022-11-13 10:51 | P.PN ---
Subjective Date of Service: 11/13/22 Primary Care Provider: Orlin Chief Complaint: SOB Subjective: New changes (hb dropped almost 2 lbs. family does not report any melena recently) Review of Systems 10-point ROS is otherwise unremarkable Physical Examination - Vital Signs Temperature: 97.5 F Blood Pressure: 97/54 Pulse: 110 Respirations: 17 Pulse Ox (%): 99 - Physical Exam General: Alert, In no apparent distress HEENT: Atraumatic, PERRLA, Other (tracheostomy ), EOMI Neck: Supple, JVD not distended Respiratory: Clear to auscultation bilaterally, Normal air movement Cardiovascular: Regular rate/rhythm, Normal S1 S2 Gastrointestinal: Normal bowel sounds, No tenderness Musculoskeletal: No tenderness Integumentary: No rashes Neurological: Normal speech, Normal tone, Normal affect Lymphatics: No axilla or inguinal lymphadenopathy - Studies Laboratory Data (last 24 hrs) 11/12/22 11:33: WBC 26.50 H*, Hgb 8.5 L, Hct 25.3 L, Plt Count 427 H 11/12/22 11:33: Sodium 120 L, Potassium 4.9, BUN 16, Creatinine 0.48 L, Glucose 201 H Assessment And Plan - Current Problems (Diagnosis) (1) Pneumonia Current Visit: Yes Status: Acute Plan: admit to the unit continue fluids and antibiotics. Will await blood cultures. consult to Dr. Beaver 11/13 seems to be improving Qualifiers: Pneumonia type: due to unspecified organism Laterality: bilateral Lung location: lower lobe of lung Qualified Code(s): J18.9 - Pneumonia, unspecified organism (2) Atrial fibrillation Current Visit: No Status: Acute Plan: Patient is stable. Will continue amiodarone and metoprolol Qualifiers: Atrial fibrillation type: paroxysmal Qualified Code(s): I48.0 - Paroxysmal atrial fibrillation (3) HTN (hypertension) Current Visit: No Status: Chronic Plan: He is currently hypotensive. Will hold the diltiazem Qualifiers: Hypertension type: primary hypertension Qualified Code(s): I10 - Essential (primary) hypertension (4) Respiratory muscle paralysis Current Visit: No Status: Chronic Plan: continue chronic vent management (5) Hypernatremia Current Visit: Yes Status: Acute Plan: improving with fluids. Dr. Wheeler is following (6) Anemia Current Visit: No Status: Acute Plan: will transfuse 1 unit prbc. Will check a stool guiac and if positive we can consult GI Qualifiers: Anemia type: unspecified type Qualified Code(s): D64.9 - Anemia, unspecified (7) ALS (amyotrophic lateral sclerosis) Current Visit: No Status: Chronic Plan: patient is at his baseline Discharge Plan: Home Plan to discharge in: Greater than 2 days - Code Status/Comfort Care Code Status Assessed: Yes Code Status: Full Code Physician Review: Patient Assessed, Agree with Above Assessment and Plan Critical Care: Yes Time Spent Managing PTS Care (In Minutes): 20
--- NOTE | 2022-11-13 11:37 | P.CNS ---
Date of Consult: 11/13/22 Reason for Consult: Pneumonia Primary Care Provider: Orlin Chief Complaint: SOB History of Present Illness: Patient is 57 years of age with a history of ALS he has a trach on a ventilator with a PEG tube. With shortness of breath is on hospice care which he revoked his recently discharged from the hospital x-ray suggestive of bilateral pneumonia Allergies ibuprofen Allergy (Verified 06/25/22 18:53) Hives Home Medications: Aspirin [Adult Low Dose Aspirin EC] 81 mg PO DAILY 12/02/18 Rivaroxaban [Xarelto] 20 mg PO DAILY 90 Days #90 tablet 12/03/18 Baclofen 10 mg PO BID 08/05/22 Gabapentin 300 mg PO DAILY 08/05/22 Riluzole 50 mg PO BID 08/05/22 Amiodarone HCl [Cordarone*] 200 mg FT BID 90 Days #180 tab NS 08/12/22 Diltiazem Tab [Cardizem Tab*] 30 mg PO Q8H 90 Days #270 tab NS 08/12/22 Metoprolol Tartrate [Lopressor*] 50 mg PO Q8HR 90 Days #270 tab NS 08/12/22 Pantoprazole Sodium [Protonix] 40 mg PO DAILY 90 Days #90 syr 08/12/22 Hyoscyamine Sulfate 0.125 mg PO Q4HR PRN 09/29/22 LORazepam [Lorazepam] 0.5 mg PO Q2HR PRN 09/29/22 Morphine Sulfate 0.5 - 1 ml FT Q4HR PRN 09/29/22 Nutritional Supplement [Boost Max] 325 ml PO TID 09/29/22 Promethazine HCl 25 mg PO Q4HR PRN 09/29/22 Sennosides [Lynn-Guerline] 8.6 mg PO DAILY 09/29/22 Tamsulosin [Flomax] 0.4 mg PO DAILY 09/29/22 Levofloxacin [Levaquin] 500 mg FT DAILY 4 Days #4 10/05/22 - Past Medical/Surgical History Diabetic: Yes -: HTN -: hyperlipidemia -: NIDDM -: L ankle fx -: pancreatitis -: als -: L ankle surgery -: trach - Family History Father Medical History: Hypertension, Diabetes Mother Medical History: Hypertension, Cancer Notes: liver ca with mets - Social History Smoking Status: Unknown if ever smoked Alcohol use: Yes CD- Drugs: No Caffeine use: Yes Review of Systems is unable to be obtained Physical Examination Temp Pulse Resp BP Pulse Ox 97.5 F 110 H 17 97/54 L 99 11/13/22 10:51 11/13/22 10:51 11/13/22 10:51 11/13/22 10:51 11/13/22 10:51 General: Alert, Cooperative Respiratory: Normal air movement Cardiovascular: No edema, Regular rate/rhythm Gastrointestinal: Normal bowel sounds, Soft and benign Laboratory Data (last 24 hrs) 11/12/22 11:33: WBC 26.50 H*, Hgb 8.5 L, Hct 25.3 L, Plt Count 427 H 11/12/22 11:33: Sodium 120 L, Potassium 4.9, BUN 16, Creatinine 0.48 L, Glucose 201 H - Problems (1) Pneumonia Current Visit: Yes Status: Acute Plan: Patient is 57 years of age recurrent hospital admissions end-stage ALS on home ventilator also has a PEG tube revoked hospice care came to the emergency room more short of breath patient was anemic hyponatremic elevated white count needed exchange engineer to broad-spectrum antibiotics meropenem vancomycin sputum cultures blood cultures appears to have hematuria hyponatremia is probably from volume depletion is his urinary sodium is low continue with IV fluids sodium is improved Qualifiers: Pneumonia type: due to unspecified organism Laterality: bilateral Lung location: lower lobe of lung Qualified Code(s): J18.9 - Pneumonia, unspecified organism
[2022-11-13] MEDS: ASPIRIN 81 MG CHEWABLE TABLET PO SCH (11:52)
[2022-11-13] MEDS: SENOSIDES 8.6 MG TAB PO SCH (11:52)
[2022-11-13] MEDS: BACLOFEN 10 MG TAB PO SCH ×2 (11:52→20:12)
[2022-11-13] MEDS: TAMSULOSIN 0.4 MG SR CAP PO SCH (11:52)
[2022-11-13] MEDS: GABAPENTIN 300 MG CAP PO SCH (11:52)
[2022-11-13] MEDS: AMIODARONE HCL 200 MG TAB FT SCH ×2 (11:53→20:12)
[2022-11-13] MEDS: JEVITY 1.2 CAL LIQUID 1,000 ML BOT FT SCH ×2 (14:45→20:13)
[2022-11-13] MEDS ORDERED: ENOXAPARIN 40 MG/0.4 ML SQ SCH (17:00)
[2022-11-13] MEDS: ENOXAPARIN 30 MG/0.3 ML SQ SCH (18:31)
[2022-11-13] MEDS ORDERED: NA CHLORIDE 0.9% 100 ML ONE (18:39)
[2022-11-13 20:11] LABS: Hematocrit 23.9 % (39.6-49.0)
[2022-11-13 20:25] LABS: Potassium 3.1 mmol/L (3.5-5.1)
--- NOTE | 2022-11-13 21:29 | P.CNS ---
Date of Consult: 11/13/22 Reason for Consult: Hyponatremia Requesting Physician: Sammy Ordaz Primary Care Provider: Orlin Chief Complaint: SOB History of Present Illness: Patient is a 57-year-old male with a past medical history significant for ALS, DM 2, atrial fibrillation, hypertension who presents with complaint of shortness of breath. Patient currently on vent support via trach and unable to communicate appropriately. Per nursing staff report patient was on room air at home and family reported that patient started having shortness of breath yesterday. Family attempted suctioning and other measures to improve patient's oxygenation but patient continued to have shortness of breath. Shortness of breath continued today and patient's O2 sat was noted to be in the 80s on room air. No other signs and symptoms reported. Symptoms are aggravated or relieved by nothing. Patient was brought to the hospital due to worsening symptoms. [facility] 10:24 This 57 yrs old Male presents to ER via EMS with complaints of Low SpO2. sp3 10:24 57-year-old male with a history of ALS, diabetes, atrial fibrillation, hypertension, on sp3 a ventilator at care facility on room air presents to the ED for hypoxia ventilation circuit change. Facility notified EMS who arrived on scene to find patient in the 80% range for pulse oxygenation. They placed patient on the vent on assist control and 100% FiO2. He was transported to the ED here and in the process has been weaned down to 50% FiO2 still on assist control. Patient is on a baseline SIMV at the care facility. Communication is very limited secondary to patient not being able to speak however he denies any gross discomfort, current chest pain or difficulty breathing, or any other symptoms at this time.. Allergies ibuprofen Allergy (Verified 06/25/22 18:53) [facility] Home medications list reviewed: Yes Home Medications: Aspirin [Adult Low Dose Aspirin EC] 81 mg PO DAILY 12/02/18 Rivaroxaban [Xarelto] 20 mg PO DAILY 90 Days #90 tablet 12/03/18 Baclofen 10 mg PO BID 08/05/22 Gabapentin 300 mg PO DAILY 08/05/22 Riluzole 50 mg PO BID 08/05/22 Amiodarone HCl [Cordarone*] 200 mg FT BID 90 Days #180 tab NS 08/12/22 Diltiazem Tab [Cardizem Tab*] 30 mg PO Q8H 90 Days #270 tab NS 08/12/22 Metoprolol Tartrate [Lopressor*] 50 mg PO Q8HR 90 Days #270 tab NS 08/12/22 Pantoprazole Sodium [Protonix] 40 mg PO DAILY 90 Days #90 syr 08/12/22 Hyoscyamine Sulfate 0.125 mg PO Q4HR PRN 09/29/22 LORazepam [Lorazepam] 0.5 mg PO Q2HR PRN 09/29/22 Morphine Sulfate 0.5 - 1 ml FT Q4HR PRN 09/29/22 Nutritional Supplement [Boost Max] 325 ml PO TID 09/29/22 Promethazine HCl 25 mg PO Q4HR PRN 09/29/22 Sennosides [Lynn-Guerline] 8.6 mg PO DAILY 09/29/22 Tamsulosin [Flomax] 0.4 mg PO DAILY 09/29/22 Levofloxacin [Levaquin] 500 mg FT DAILY 4 Days #4 10/05/22 - Past Medical/Surgical History Diabetic: Yes -: HTN -: HLD -: NIDDM -: L ankle fx -: pancreatitis -: ALS -: Hx Hyponatremia (Dr. Mayers) -: L ankle surgery -: trach - Family History Father Medical History: Hypertension, Diabetes Mother Medical History: Hypertension, Cancer Notes: liver ca with mets - Social History Smoking Status: Unknown if ever smoked Alcohol use: Yes CD- Drugs: No Caffeine use: Yes Review of Systems 10-point ROS is otherwise unremarkable General: Weakness, Malaise Neurological: Weakness Physical Examination Temp Pulse Resp BP Pulse Ox 97.2 F 108 H 19 107/65 96 11/13/22 12:00 11/13/22 20:00 11/13/22 20:00 11/13/22 20:00 11/13/22 20:00 General: In no apparent distress, Cooperative HEENT: Atraumatic Neck: Supple Respiratory: Diminished Cardiovascular: No edema, Regular rate/rhythm Gastrointestinal: Non-distended Musculoskeletal: No clubbing, No contractures Integumentary: No rashes, No cyanosis Neurological: Abnormal speech Blood work reviewed in the chart. Imagings Data: [facility] EXAM DESCRIPTION: Dion Single View11/12/2022 1:05 pm CLINICAL HISTORY: Shortness of breath COMPARISON: September 2022 FINDINGS: Moderate to marked bilateral pulmonary opacities. The heart is normal size. Tracheostomy tube in place IMPRESSION: Moderate to marked bilateral pulmonary opacities may indicate pneumonia. [employer] EXAM DESCRIPTION: RAD - ENTEROSTOMY TUBE CHECK W/CONTR - 11/13/2022 9:53 am CLINICAL HISTORY: G tube placement confirmation COMPARISON: No comparisons FINDINGS: There were 2 KUB images obtained prior to and subsequent to retrograde injection of contrast via NG tube. The initial image shows G-tube in place in the midline abdomen. Stomach is not dilated. Air is seen in nondilated small bowel. Following retrograde injection, contrast is seen within the contracted gastric lumen. A small amount of contrast has extended into the duodenal C-loop. Focus of contrast along the right lateral margin of the G-tube does not clearly demonstrate gastric mucosal folds. Small amount of extraluminal contrast cannot be excluded. IMPRESSION: Questionable extraluminal contrast along the right lateral margin of the G-tube. CT abdomen examination without oral or IV contrast could be performed for more definitive assessment. [employer] LEFT VENTRICULAR WALL MOTION: ANTERIOR/ APICAL AKINESIS DOPPLER/COLOR FLOW: SEE BELOW COMMENTS: SEVERELY DEPRESSED LEFT VENTRICULAR EJECTION FRACTION 20-25%. ANTERIOR/ WIL SEPTAL/ APICAL AKINESIS. MODERATE MITRAL REGURGITATION. Conclusions/Impression: Proteinuria -No NSAIDs Hyponatremia -Continue IVF with NS -Start oral sodium through FT Hypokalemia -Replete potassium HypoPO4 -Replete phosphorus -Advance nutrition Hypotension -Continue IVF -IV Albumin prn Systolic CHF, chronic LVEF 20-25% -Daily weight Moderate malnutrition with debility -Continue tube feeds Anemia in chronic illness -Monitor H&H -Transfuse PRBCs as ordered Case reviewed with Dr. Ordaz Thank you kindly for the consultation Critical Care: Yes
[2022-11-14] MEDS: METOPROLOL TAR 50 MG TAB PO SCH ×3 (00:09→17:00)
[2022-11-14] MEDS: Meropenem 1,000 MG in NA CHLORIDE 0.9% 100 ML IV SCH ×3 (00:09→17:02)
[2022-11-14] MEDS: SODIUM CHLORIDE 1 GM TAB FT SCH ×3 (00:09→08:44)
[2022-11-14] MEDS: IPRATROPIUM BROM 0.5MG/2.5ML NEB SCH ×4 (02:00→18:45)
[2022-11-14 06:10] LABS: Absolute Lymphocytes (CBC) 0.2 K/uL (0.7-4.9); Hematocrit 23.1 % (39.6-49.0); Lymphocytes % 1.1 % (15.3-44.8); MCV 84.8 fL (80-100); MPV 6.4 fL (7.6-11.3); RBC Red Blood Cell Count 2.72 M/uL (4.33-5.43)
[2022-11-14 06:30] LABS: Albumin 1.8 g/dL (3.4-5.0); Bilirubin Total 1.2 mg/dL (0.2-1.0); Phosphorus 2.7 mg/dL (2.5-4.9); Protein, Total 5.6 g/dL (6.4-8.2)
[2022-11-14 06:32] LABS: Magnesium 1.6 mg/dL (1.6-2.4); Potassium 3.2 mmol/L (3.5-5.1)
[2022-11-14] MEDS: GABAPENTIN 300 MG CAP PO SCH (08:42)
[2022-11-14] MEDS: SENOSIDES 8.6 MG TAB PO SCH (08:42)
[2022-11-14] MEDS: AMIODARONE HCL 200 MG TAB FT SCH ×2 (08:42→20:07)
[2022-11-14] MEDS: BACLOFEN 10 MG TAB PO SCH ×2 (08:43→20:08)
[2022-11-14] MEDS: ASPIRIN 81 MG CHEWABLE TABLET PO SCH (08:44)
[2022-11-14] MEDS: VANCOMYCIN 1 GM in NA CHLORIDE 0.9% 250 ML IVPB SCH ×2 (08:47→22:11)
[2022-11-14] MEDS: JEVITY 1.2 CAL LIQUID 1,000 ML BOT FT SCH ×3 (08:49→20:09)
[2022-11-14] MEDS: TAMSULOSIN 0.4 MG SR CAP PO SCH (09:00)
--- NOTE | 2022-11-14 09:00 | RAD REPORT ---
EXAM DESCRIPTION: RAD - Chest Single View - 11/14/2022 8:30 am CLINICAL HISTORY: Pneumonia. COMPARISON: 11/12/2022 and 09/29/2022 TECHNIQUE: AP portable chest image was obtained . FINDINGS: Tracheostomy tube in place. Worsening perihilar and basal confluent airspace opacities, mo st pronounced at the right base. There may be a small component of right layering pleural effusion. N o pneumothorax. Heart is not enlarged. Mediastinal contours are unchanged. IMPRESSION: Progressive bilateral confluent opacities as above, could reflect worsening pneumonia, a nd/ or pulmonary edema.
[2022-11-14] MEDS ORDERED: Magnesium Sulfate 2gm IVPB 2 G/50 ML BAG IV ONE (09:15)
[2022-11-14] MEDS ORDERED: POTASSIUM 25 MEQ EFFERV TAB PO ONE ×2 (09:15→21:59)
--- NOTE | 2022-11-14 10:36 | P.PN ---
Nephrology note (S) Pt remains on vent, which he acknowledges he is chronically vent dependent, he denies any resp distress, dyspnea or cough. He denies any abd pain or nausea. He is on IVF, he is getting Jevity bolus TF. (O) Vitals reviewed in the EMR General: In no apparent distress, cachectic, chronically ill appearing HEENT: Atraumatic, sclera anicteric Neck: trach, some dried colored secretions on gregg-trach dressing Respiratory: b/l vent BS Cardiovascular: No edema, Regular rate/rhythm mostly Gastrointestinal: Soft, scaphoid, ND, NT, PEG present Musculoskeletal: Muscle mass loss Neurological: Awake, tracks movements, mouths response. Generalized muscle weakness Blood work reviewed in the chart. A/P) Hyponatremia, hypotonic. Chronic in part -Likely multifactorial etiology but with Na depletion primarily, Na level improved with isotonic IVF and NaCl administration. D/C NS IVF. Suspend NaCl tabs at least temp given rise in Na levels over the past 24h. Hypokalemia -Replete potassium with additional PO KCL liquid via PEG. Will give Mg Sulfate 2 gm IV once Hypotension, unspecified -Improved Systolic CHF, chronic LVEF 20-25%. Pulmonary edema -D/c IVF, dose IV lasix once and monitor closely. Abnormal findings in urine, unspecified. Pyuria, UTI POA -GNR on UCx, f/u final, cont gram neg coverage Leon Pompa MD, JON
[2022-11-14] MEDS: LORAZEPAM 0.5 MG TABLET PO PRN ×3 (12:00→20:08)
[2022-11-14] MEDS ORDERED: FUROSEMIDE 20 MG/ 2ML VIAL IV ONE (12:00)
--- NOTE | 2022-11-14 12:01 | P.PN ---
Subjective Date of Service: 11/14/22 Primary Care Provider: Orlin Chief Complaint: SOB Subjective: Improving (Doing well no new complaint tolerating tube feeds) Review of Systems General: Weakness Respiratory: Shortness of Breath Physical Examination - Vital Signs Temperature: 97 F Blood Pressure: 110/69 Pulse: 127 Respirations: 21 Pulse Ox (%): 100 - Physical Exam General: Alert, Cooperative Respiratory: Clear to auscultation bilaterally, Normal air movement Assessment And Plan - Current Problems (Diagnosis) (1) Pneumonia Current Visit: Yes Status: Acute Plan: Patient admitted with bilateral pneumonia doing well cultures are pending White count declining hyponatremia hypokalemia improving vital signs oxygenation stable blood cultures gram-negative rods probably Pseudomonas Qualifiers: Pneumonia type: due to unspecified organism Laterality: bilateral Lung location: lower lobe of lung Qualified Code(s): J18.9 - Pneumonia, unspecified organism (2) Iron (Fe) deficiency anemia Current Visit: Yes Status: Acute Plan: Possible transferrin saturation is low we will repeat again patient was transfused 1 unit of packed red blood cells Physician Review: Patient Assessed, Agree with Above Assessment and Plan
--- NOTE | 2022-11-14 12:48 | P.PN ---
Subjective Date of Service: 11/14/22 Primary Care Provider: Orlin Chief Complaint: SOB Subjective: No new changes Review of Systems 10-point ROS is otherwise unremarkable Physical Examination - Vital Signs Temperature: 97 F Blood Pressure: 110/69 Pulse: 127 Respirations: 21 Pulse Ox (%): 100 - Physical Exam General: Alert, In no apparent distress HEENT: Atraumatic, PERRLA, EOMI Neck: Supple, JVD not distended Respiratory: Clear to auscultation bilaterally, Normal air movement Cardiovascular: Regular rate/rhythm, Normal S1 S2 Gastrointestinal: Normal bowel sounds, No tenderness Musculoskeletal: No tenderness Integumentary: No rashes Neurological: Normal speech, Normal tone, Normal affect Lymphatics: No axilla or inguinal lymphadenopathy Assessment And Plan - Current Problems (Diagnosis) (1) Gram-neg septicemia Current Visit: Yes Status: Acute Plan: will await antibiotigram to see what antibiotics he needs (2) Pneumonia Current Visit: Yes Status: Acute Plan: admit to the unit continue fluids and antibiotics. Will await blood cultures. consult to Dr. Beaver 11/13 seems to be improving Qualifiers: Pneumonia type: due to unspecified organism Laterality: bilateral Lung location: lower lobe of lung Qualified Code(s): J18.9 - Pneumonia, unspecified organism (3) Atrial fibrillation Current Visit: No Status: Acute Plan: Patient is stable. Will continue amiodarone and metoprolol Qualifiers: Atrial fibrillation type: paroxysmal Qualified Code(s): I48.0 - Paroxysmal atrial fibrillation (4) HTN (hypertension) Current Visit: No Status: Chronic Plan: He is currently hypotensive. Will hold the diltiazem Qualifiers: Hypertension type: primary hypertension Qualified Code(s): I10 - Essential (primary) hypertension (5) Respiratory muscle paralysis Current Visit: No Status: Chronic Plan: continue chronic vent management (6) Hypernatremia Current Visit: Yes Status: Acute Plan: improving with fluids. Dr. Wheeler is following (7) Anemia Current Visit: No Status: Acute Plan: will transfuse 1 unit prbc. Will check a stool guiac and if positive we can c onsult GI Qualifiers: Anemia type: unspecified type Qualified Code(s): D64.9 - Anemia, unspecified (8) ALS (amyotrophic lateral sclerosis) Current Visit: No Status: Chronic Plan: patient is at his baseline Discharge Plan: Home Plan to discharge in: 24 Hours - Code Status/Comfort Care Code Status Assessed: No Physician Review: Patient Assessed, Agree with Above Assessment and Plan Critical Care: Yes Time Spent Managing PTS Care (In Minutes): 20
--- NOTE | 2022-11-14 15:27 | RAD REPORT ---
EXAM DESCRIPTION: CT - Thorax Wo Con CLINICAL HISTORY: Chest pain penumonia recurrent COMPARISON: No comparisons FINDINGS: Tracheostomy tube noted. Large airspace consolidation in the medial left lung base. Modera te infiltrate in the posterior right upper lobe and right lower lobe present. Soft tissue material fi lls bilateral lower lobe bronchi. Small bilateral pleural effusions. No concerning bony finding. No gross upper abdominal finding. All CT scans are performed using dose optimization technique as appropriate and may include automated exposure control or mA/KV adjustment according to patient size. IMPRESSION: Significant infiltrate/ consolidation in both lung bases, greater on the left.Significan t soft tissue material seen in the right and left tracheobronchial tree. Findings would be suggestive of aspiration.
[2022-11-14] MEDS: ENOXAPARIN 30 MG/0.3 ML SQ SCH (17:01)
[2022-11-14] MEDS: ACETAMINOPHEN 325 MG TABLET PO PRN (20:07)
[2022-11-15] MEDS: Meropenem 1,000 MG in NA CHLORIDE 0.9% 100 ML IV SCH ×3 (00:28→17:50)
[2022-11-15] MEDS: IPRATROPIUM BROM 0.5MG/2.5ML NEB SCH ×4 (02:00→19:35)
[2022-11-15] MEDS: METOPROLOL TAR 50 MG TAB PO SCH ×2 (04:45→08:56)
[2022-11-15] MEDS: LORAZEPAM 0.5 MG TABLET PO PRN ×4 (04:45→20:05)
[2022-11-15 05:21] LABS: Absolute Lymphocytes (CBC) 0.7 K/uL (0.7-4.9); Hematocrit 23.2 % (39.6-49.0); Lymphocytes % 3.1 % (15.3-44.8); MCV 84.8 fL (80-100); MPV 6.3 fL (7.6-11.3); RBC Red Blood Cell Count 2.73 M/uL (4.33-5.43)
[2022-11-15 05:32] LABS: Albumin 1.8 g/dL (3.4-5.0); Phosphorus 2.3 mg/dL (2.5-4.9); Potassium 4.2 mmol/L (3.5-5.1); Protein, Total 5.9 g/dL (6.4-8.2)
--- NOTE | 2022-11-15 08:07 | EKG ---
Test Date: 2022-11-12 Test Time: 10:37:22 Cyber Reverse Engineer: SAMI MEASUREMENT RESULTS: Intervals: Rate: 113 GA: 206 QRSD: 136 QT: 310 QTc: 425 [place]: P: GA: 206 QRS: 33 T: 142 INTERPRETIVE STATEMENTS: Sinus tachycardia Right bundle branch block T wave abnormality, consider lateral ischemia Abnormal ECG Compared to ECG 11/12/2022 10:36:18 No significant changes Electronically Signed On 11-15-22 07:59:48 [employer] by Tres Joyner
[2022-11-15] MEDS ORDERED: Meropenem 1000 MG/VIAL IV ONE (08:22)
[2022-11-15] MEDS: GABAPENTIN 300 MG CAP PO SCH (08:56)
[2022-11-15] MEDS: ASPIRIN 81 MG CHEWABLE TABLET PO SCH (08:56)
[2022-11-15] MEDS: ACETAMINOPHEN 325 MG TABLET PO PRN ×2 (08:56→20:04)
[2022-11-15] MEDS: POTASS/SODIUM PHOSPHATE 1 PKT POWD.PACK PO SCH ×3 (08:57→14:51)
[2022-11-15] MEDS: SENOSIDES 8.6 MG TAB PO SCH (08:57)
[2022-11-15] MEDS: TAMSULOSIN 0.4 MG SR CAP PO SCH (08:57)
[2022-11-15] MEDS: JEVITY 1.2 CAL LIQUID 1,000 ML BOT FT SCH ×3 (08:57→20:08)
[2022-11-15] MEDS: AMIODARONE HCL 200 MG TAB FT SCH ×2 (08:57→20:05)
[2022-11-15] MEDS: VANCOMYCIN 1 GM in NA CHLORIDE 0.9% 250 ML IVPB SCH (09:00)
[2022-11-15] MEDS: BACLOFEN 10 MG TAB PO SCH ×2 (09:09→20:05)
[2022-11-15] MEDS: MUPIROCIN 2% OINT 22GM TUBE TOP SCH ×2 (09:09→20:04)
[2022-11-15] MEDS ORDERED: NA CHLORIDE 0.9% 100 ML ONE (09:12)
--- NOTE | 2022-11-15 11:38 | P.PN ---
Date of Service: 11/15/22 Vital Signs Temp Pulse Resp BP Pulse Ox 98.2 F 109 H 24 H 94/57 L 97 11/15/22 04:00 11/15/22 08:56 11/15/22 05:59 11/15/22 08:56 11/15/22 05:00 Medications Acetaminophen (Acetaminophen 325 Mg Tablet) 650 mg PO Q6H PRN PRN Reason: TEMP > 100.4' F Last Admin: 11/15/22 08:56 Dose: 650 mg Albuterol Sulfate (Albuterol 2.5 Mg/3 Ml Neb Opal) 2.5 mg NEB [id number] PRN PRN Reason: WHEEZING Amiodarone HCl (Amiodarone Hcl 200 Mg Tab) 200 mg FT BID [facility] Last Admin: 11/15/22 08:57 Dose: 200 mg Aspirin (Aspirin 81 Mg Chewable Tablet) 81 mg PO DAILY [facility] Last Admin: 11/15/22 08:56 Dose: 81 mg Baclofen (Baclofen 10 Mg Tab) 10 mg PO BID [facility] Last Admin: 11/15/22 09:09 Dose: 10 mg Enoxaparin Sodium (Enoxaparin 30 Mg/0.3 Ml) 30 mg SQ DAILY 5 PM [facility] Last Admin: 11/14/22 17:01 Dose: 30 mg Gabapentin (Gabapentin 300 Mg Cap) 300 mg PO DAILY [facility] Last Admin: 11/15/22 08:56 Dose: 300 mg Sodium Chloride (Sodium Chloride) 250 mls @ 999 mls/hr IV Q15M PRN PRN Reason: HYPOTENSION Last Admin: 11/12/22 19:55 Dose: 250 mls Meropenem 1,000 mg/ Sodium (Chloride) 100 mls @ 200 mls/hr IV Q8HR [facility] Last Admin: 11/15/22 09:09 Dose: 100 mls Vancomycin HCl 1 gm/ Sodium (Chloride) 250 mls @ 250 mls/hr IVPB Q36H [facility]; Protocol Ipratropium [place] (Ipratropium Brom 0.5mg/2.5ml) 0.5 mg NEB [id number] [facility] Last Admin: 11/15/22 07:55 Dose: 0.5 mg Labetalol HCl (Labetalol 20 Mg/4ml Syringe) 10 mg IV Q6H PRN PRN Reason: SBP>160 Lorazepam (Lorazepam 0.5 Mg Tablet) 0.5 mg PO Q2HR PRN PRN Reason: ANXIETY Last Admin: 11/15/22 08:57 Dose: 0.5 mg Metoprolol Tartrate (Metoprolol Tar 50 Mg Tab) 50 mg PO Q8HR [facility] Last Admin: 11/15/22 08:56 Dose: 50 mg Mupirocin (Mupirocin 2% Oint 22gm Tube) 1 appl TOP BID [facility] Stop: 11/20/22 09:01 Last Admin: 11/15/22 09:09 Dose: 1 appl Ondansetron HCl (Ondansetron 4 Mg/2 Ml Vial) 4 mg IV Q6HP PRN PRN Reason: NAUSEA / VOMITING Ondansetron HCl (Ondansetron 4 Mg/2 Ml Vial) 4 mg IV Q4H PRN PRN Reason: NAUSEA / VOMITING Senna (Senosides 8.6 Mg Tab) 8.6 mg PO DAILY [facility] Last Admin: 11/15/22 08:57 Dose: 8.6 mg Sodium Chloride (Sodium Chloride 0.9% 10ml Inj) 10 ml IV UD PRN PRN Reason: Diluant Sodium Chloride (Flush Normal Saline 10 Ml) 10 ml IV BID [facility] Last Admin: 11/15/22 08:58 Dose: 10 ml Tamsulosin HCl (Tamsulosin 0.4 Mg Sr Cap) 0.4 mg PO DAILY [facility] Last Admin: 11/15/22 08:57 Dose: 0.4 mg Microbiology Results 11/12/22 13:25 Blood - Blood Aerobic Blood Culture - Preliminary Serratia Marcescens 11/12/22 13:25 Blood - Blood Blood Culture Gram Stain - Preliminary 11/12/22 13:25 Blood - Blood Anaerobic Blood Culture - Preliminary No growth in 24 hours. Assessment/ Plan: Nephrology No dyspnea No chest pain Fatigue and weakness No acute events overnight Vitals, medications, blood work and imaging reviewed in the chart General: In no apparent distress, Cooperative HEENT: Atraumatic Neck: Supple Respiratory: Diminished Cardiovascular: No edema, Regular rate/rhythm Gastrointestinal: Non-distended Musculoskeletal: No clubbing, No contractures Integumentary: No rashes, No cyanosis Neurological: Abnormal speech Blood work reviewed in the chart. Imagings Data: [facility] EXAM DESCRIPTION: Dion Single View11/12/2022 1:05 pm CLINICAL HISTORY: Shortness of breath COMPARISON: September 2022 FINDINGS: Moderate to marked bilateral pulmonary opacities. The heart is normal size. Tracheostomy tube in place IMPRESSION: Moderate to marked bilateral pulmonary opacities may indicate pneumonia. [place] EXAM DESCRIPTION: RAD - ENTEROSTOMY TUBE CHECK W/CONTR - 11/13/2022 9:53 am CLINICAL HISTORY: G tube placement confirmation COMPARISON: No comparisons FINDINGS: There were 2 KUB images obtained prior to and subsequent to retrograde injection of contrast via NG tube. The initial image shows G-tube in place in the midline abdomen. Stomach is not dilated. Air is seen in nondilated small bowel. Following retrograde injection, contrast is seen within the contracted gastric lumen. A small amount of contrast has extended into the duodenal C-loop. Focus of contrast along the right lateral margin of the G-tube does not clearly demonstrate gastric mucosal folds. Small amount of extraluminal contrast cannot be excluded. IMPRESSION: Questionable extraluminal contrast along the right lateral margin of the G-tube. CT abdomen examination without oral or IV contrast could be performed for more definitive assessment. [place] LEFT VENTRICULAR WALL MOTION: ANTERIOR/ APICAL AKINESIS DOPPLER/COLOR FLOW: SEE BELOW COMMENTS: SEVERELY DEPRESSED LEFT VENTRICULAR EJECTION FRACTION 20-25%. ANTERIOR/ WIL SEPTAL/ APICAL AKINESIS. MODERATE MITRAL REGURGITATION. Conclusions/Impression: Proteinuria -No NSAIDs Hyponatremia, improving -Maintain nutrition Hypokalemia -Replete potassium prn -Maintain nutrition HypoPO4 -Replete phosphorus prn -Maintain nutrition Chronic Hypotension -IV Albumin prn Systolic CHF, chronic LVEF 20-25% Pulmonary edema -Daily weight Moderate to severe malnutrition with debility -Continue tube feeds Anemia in chronic illness Iron Deficiency -Monitor H&H -Transfuse PRBCs as ordered Multifocal PNA Aspiration PNA -Trach status -Continue ventilatory support -Continue abx >30min patient care
--- NOTE | 2022-11-15 11:53 | P.PN ---
Subjective Date of Service: 11/15/22 Primary Care Provider: Orlin Chief Complaint: Pneumonia Subjective: Improving (Patient is improving doing better cultures sputum cultures all positive) Review of Systems Unremarkable Physical Examination - Vital Signs Temperature: 98.2 F Blood Pressure: 84/50 Pulse: 105 Respirations: 20 Pulse Ox (%): 96 - Physical Exam General: Alert, Oriented x3 Respiratory: Clear to auscultation bilaterally, Diminished Cardiovascular: No edema Assessment And Plan - Current Problems (Diagnosis) (1) Pneumonia Current Visit: Yes Status: Acute Plan: Patient admitted with pneumonia urine isolating Pseudomonas blood cultures positive for Serratia White count is steadily declining plan to discharge home with 2 weeks of IV meropenem need a PICC line blood pressure low reduce dose of metoprolol patient's Pseudomonas is resistant to meropenem in the urine CT scan shows bilateral lower lobe pneumonia sputum 4+ gram-negative rods presumed Pseudomonas ID pending Qualifiers: Pneumonia type: due to unspecified organism Laterality: bilateral Lung location: lower lobe of lung Qualified Code(s): J18.9 - Pneumonia, unspecified organism (2) Iron (Fe) deficiency anemia Current Visit: Yes Status: Acute Plan: Possible transferrin saturation is low we will repeat again patient was transfused 1 unit of packed red blood cells Physician Review: Patient Assessed, Agree with Above Assessment and Plan
[2022-11-15] MEDS: ENOXAPARIN 30 MG/0.3 ML SQ SCH (17:49)
--- NOTE | 2022-11-15 18:34 | P.PN ---
Subjective Date of Service: 11/15/22 Primary Care Provider: Orlin Chief Complaint: Pneumonia Subjective: No new changes tachycardic Review of Systems 10-point ROS is otherwise unremarkable Respiratory: Shortness of Breath Physical Examination - Vital Signs Temperature: 97.3 F Blood Pressure: 89/56 Pulse: 131 Respirations: 18 Pulse Ox (%): 94 - Physical Exam General: Alert, In no apparent distress HEENT: Atraumatic, PERRLA, EOMI Neck: Supple, JVD not distended Respiratory: Clear to auscultation bilaterally, Crackles/rales Cardiovascular: Regular rate/rhythm, Normal S1 S2 Gastrointestinal: Normal bowel sounds, No tenderness Musculoskeletal: No tenderness Integumentary: No rashes Neurological: Normal speech, Normal tone, Normal affect Lymphatics: No axilla or inguinal lymphadenopathy Assessment And Plan - Current Problems (Diagnosis) (1) Gram-neg septicemia Current Visit: Yes Status: Acute Plan: will await antibiotigram to see what antibiotics he needs 11/15 pseudomonas which is only sensitive to tobramycin Seretria which is sensitive to meropenem. Will stop vancomycin, start tobramycin. Consult social science research assistant for out patient antibiotics. Will order a picc line . (2) Pneumonia Current Visit: Yes Status: Acute Plan: admit to the unit continue fluids and antibiotics. Will await blood cultures. consult to Dr. Beaver 11/13 seems to be improving Qualifiers: Pneumonia type: due to unspecified organism Laterality: bilateral Lung location: lower lobe of lung Qualified Code(s): J18.9 - Pneumonia, unspecified organism (3) Atrial fibrillation Current Visit: No Status: Acute Plan: Patient is stable. Will continue amiodarone and metoprolol Qualifiers: Atrial fibrillation type: paroxysmal Qualified Code(s): I48.0 - Paroxysmal atrial fibrillation (4) HTN (hypertension) Current Visit: No Status: Chronic Plan: He is currently hypotensive. Will hold the diltiazem Qualifiers: Hypertension type: primary hypertension Qualified Code(s): I10 - Essential (primary) hypertension (5) Respiratory muscle paralysis Current Visit: No Status: Chronic Plan: continue chronic vent management (6) Hypernatremia Current Visit: Yes Status: Acute Plan: improving with fluids. Dr. Wheeler is following (7) Anemia Current Visit: No Status: Acute Plan: will transfuse 1 unit prbc. Will check a stool guiac and if positive we can consult GI Qualifiers: Anemia type: unspecified type Qualified Code(s): D64.9 - Anemia, unspecified (8) ALS (amyotrophic lateral sclerosis) Current Visit: No Status: Chronic Plan: patient is at his baseline Discharge Plan: Home Plan to discharge in: Greater than 2 days - Code Status/Comfort Care Code Status Assessed: No Physician Review: Patient Assessed, Agree with Above Assessment and Plan Critical Care: Yes Time Spent Managing PTS Care (In Minutes): 25
[2022-11-15] MEDS ORDERED: ACETYLCYST 20% 4 ML VIAL IH ONE (19:00)
[2022-11-15] MEDS: TOBRAMYCIN IV SCH (19:03)
[2022-11-15] MEDS: NA CHLORIDE 0.9% IV SCH (19:03)
[2022-11-15] MEDS ORDERED: VANCOMYCIN 1 GM in NA CHLORIDE 0.9% 250 ML IVPB SCH (21:00)
[2022-11-15] MEDS: METOPROLOL TAR 25 MG TAB PO SCH (21:00)
[2022-11-16] MEDS: Meropenem 1,000 MG in NA CHLORIDE 0.9% 100 ML IV SCH ×3 (01:01→16:30)
[2022-11-16] MEDS: LEVALBUTEROL 0.63 MG/3 ML NEB NEB PRN (01:11)
[2022-11-16] MEDS: IPRATROPIUM BROM 0.5MG/2.5ML NEB SCH ×4 (01:11→19:50)
[2022-11-16] MEDS: ACETAMINOPHEN 325 MG TABLET PO PRN ×2 (02:54→20:36)
[2022-11-16] MEDS: LORAZEPAM 0.5 MG TABLET PO PRN ×5 (02:55→21:54)
[2022-11-16 05:54] LABS: Absolute Lymphocytes (CBC) 0.7 K/uL (0.7-4.9); Hematocrit 21.4 % (39.6-49.0); Lymphocytes % 3.9 % (15.3-44.8); MCV 85.4 fL (80-100); MPV 6.7 fL (7.6-11.3); RBC Red Blood Cell Count 2.51 M/uL (4.33-5.43)
[2022-11-16 06:04] LABS: Magnesium 1.9 mg/dL (1.6-2.4); Phosphorus 4.5 mg/dL (2.5-4.9); Potassium 3.9 mmol/L (3.5-5.1); Uric Acid 4.2 mg/dL (3.5-7.2)
--- NOTE | 2022-11-16 07:46 | RAD REPORT ---
EXAM DESCRIPTION: Dion Single View11/16/2022 5:27 am CLINICAL HISTORY: Cough COMPARISON: November 14 2022 FINDINGS: Mild improvement in diffuse bilateral pulmonary opacities. Small pleural effusions Normal heart size. Tracheostomy tube in place IMPRESSION: Mild improvement in moderate bilateral pneumonia
--- NOTE | 2022-11-16 08:10 | P.PN ---
Subjective Date of Service: 11/16/22 Primary Care Provider: Orlin Chief Complaint: Pneumonia Patient has gm -ve rods Review of Systems is unable to be obtained Physical Examination - Vital Signs Temperature: 97.1 F Blood Pressure: 111/60 Pulse: 110 Respirations: 21 Pulse Ox (%): 22 - Physical Exam General: Alert, In no apparent distress HEENT: Atraumatic, PERRLA, EOMI Neck: Supple, JVD not distended Respiratory: Clear to auscultation bilaterally, Normal air movement Cardiovascular: Regular rate/rhythm, Normal S1 S2 Gastrointestinal: Normal bowel sounds, No tenderness Musculoskeletal: No tenderness Integumentary: No rashes Neurological: Normal speech, Normal tone, Normal affect Lymphatics: No axilla or inguinal lymphadenopathy Assessment And Plan - Current Problems (Diagnosis) (1) Gram-neg septicemia Current Visit: Yes Status: Acute Plan: will await antibiotigram to see what antibiotics he needs 2/9 gm -ve in blood, sputum and urine. Plans to discharge on meropenemen and tobramycin. Will need a picc line. Need to wait for the antibiotigram on his urine (2) Pneumonia Current Visit: Yes Status: Acute Plan: admit to the unit continue fluids and antibiotics. Will await blood cultures. consult to Dr. Beaver 11/13 seems to be improving Qualifiers: Pneumonia type: due to unspecified organism Laterality: bilateral Lung location: lower lobe of lung Qualified Code(s): J18.9 - Pneumonia, unspecified organism (3) Atrial fibrillation Current Visit: No Status: Acute Plan: Patient is stable. Will continue amiodarone and metoprolol Qualifiers: Atrial fibrillation type: paroxysmal Qualified Code(s): I48.0 - Paroxysmal atrial fibrillation (4) HTN (hypertension) Current Visit: No Status: Chronic Plan: He is currently hypotensive. Will hold the diltiazem Qualifiers: Hypertension type: primary hypertension Qualified Code(s): I10 - Essential (primary) hypertension (5) Respiratory muscle paralysis Current Visit: No Status: Chronic Plan: continue chronic vent management (6) Hypernatremia Current Visit: Yes Status: Acute Plan: improving with fluids. Dr. Wheeler is following (7) Anemia Current Visit: No Status: Acute Plan: will transfuse 1 unit prbc. Will check a stool guiac and if positive we can consult GI Qualifiers: Anemia type: unspecified type Qualified Code(s): D64.9 - Anemia, unspecified (8) ALS (amyotrophic lateral sclerosis) Current Visit: No Status: Chronic Plan: patient is at his baseline Discharge Plan: Home Plan to discharge in: Greater than 2 days - Code Status/Comfort Care Code Status Assessed: No Physician Review: Patient Assessed, Agree with Above Assessment and Plan Critical Care: Yes Time Spent Managing PTS Care (In Minutes): 20
[2022-11-16] MEDS: SENOSIDES 8.6 MG TAB PO SCH (09:00)
[2022-11-16] MEDS ORDERED: POTASSIUM 25 MEQ EFFERV TAB PO ONE (09:00)
[2022-11-16] MEDS: ASPIRIN 81 MG CHEWABLE TABLET PO SCH (09:36)
[2022-11-16] MEDS: GABAPENTIN 300 MG CAP PO SCH (09:36)
[2022-11-16] MEDS: TAMSULOSIN 0.4 MG SR CAP PO SCH (09:36)
[2022-11-16] MEDS: AMIODARONE HCL 200 MG TAB FT SCH ×2 (09:36→20:37)
[2022-11-16] MEDS: MUPIROCIN 2% OINT 22GM TUBE TOP SCH ×2 (09:37→20:36)
[2022-11-16] MEDS: BACLOFEN 10 MG TAB PO SCH ×2 (09:37→20:37)
[2022-11-16] MEDS: METOPROLOL TAR 25 MG TAB PO SCH ×2 (09:38→20:37)
[2022-11-16] MEDS: JEVITY 1.2 CAL LIQUID 1,000 ML BOT FT SCH ×3 (09:39→20:38)
--- NOTE | 2022-11-16 13:31 | P.PN ---
Subjective Date of Service: 11/16/22 Primary Care Provider: Orlin Chief Complaint: Pneumonia/cystitis Subjective: Improving (Patient is improving doing well multiple resistance organisms isolated white count declining) Review of Systems is unable to be obtained Physical Examination - Vital Signs Temperature: 97.1 F Blood Pressure: 101/66 Pulse: 117 Respirations: 22 Pulse Ox (%): 99 - Physical Exam General: Alert, Cooperative Respiratory: Clear to auscultation bilaterally Cardiovascular: No edema, Regular rate/rhythm Assessment And Plan - Current Problems (Diagnosis) (1) Pneumonia Current Visit: Yes Status: Acute Plan: Sputum gram-negative rods ID pending continue with meropenem Qualifiers: Pneumonia type: due to unspecified organism Laterality: bilateral Lung location: lower lobe of lung Qualified Code(s): J18.9 - Pneumonia, unspecified organism (2) Iron (Fe) deficiency anemia Current Visit: Yes Status: Acute Plan: Possible transferrin saturation is low we will repeat again patient was transfused 1 unit of packed red blood cells (3) Bacteremia Current Visit: Yes Status: Acute Plan: Serratia isolated from the blood sensitive to meropenem labs reviewed (4) Vancomycin resistant Enterococcus Current Visit: Yes Status: Acute Plan: Patient has VRE isolated from the urine add some Macrodantin Physician Review: Patient Assessed, Agree with Above Assessment and Plan
[2022-11-16] MEDS: HYDROMORPHONE HCL 0.5 MG/0.5 ML INJ IV PRN ×2 (13:54→21:54)
[2022-11-16] MEDS: ENOXAPARIN 30 MG/0.3 ML SQ SCH (16:30)
[2022-11-16] MEDS: NITROFURAN MACRO 100 MG CAP PO SCH ×2 (16:30→20:37)
--- NOTE | 2022-11-16 16:39 | RAD REPORT ---
EXAM DESCRIPTION: RAD - Chest Single View - 11/16/2022 4:32 pm CLINICAL HISTORY: Picc line placement COMPARISON: Chest Single View dated 11/16/2022; Chest Single View dated 11/14/2022; Chest Single View d ated 11/12/2022; Chest Single View dated 09/29/2022 FINDINGS: Compared with the chest radiograph from earlier in the day, interval placement of left sub clavian approach PICC with tip overlying the superior cavoatrial junction. Aeration lungs similar wit h bilateral effusions and patchy bilateral airspace disease likely reflecting pneumonia. IMPRESSION: PICC tip in satisfactory position overlying the superior cavoatrial junction.
[2022-11-16] MEDS: TOBRAMYCIN IV SCH (19:10)
[2022-11-16] MEDS: NA CHLORIDE 0.9% IV SCH (19:10)
[2022-11-17] MEDS: Meropenem 1,000 MG in NA CHLORIDE 0.9% 100 ML IV SCH ×3 (01:00→17:09)
[2022-11-17] MEDS: IPRATROPIUM BROM 0.5MG/2.5ML NEB SCH ×4 (01:20→20:33)
[2022-11-17] MEDS: HYDROMORPHONE HCL 0.5 MG/0.5 ML INJ IV PRN ×3 (04:40→21:05)
[2022-11-17] MEDS: LORAZEPAM 0.5 MG TABLET PO PRN ×2 (04:41→20:55)
[2022-11-17 05:37] LABS: Magnesium 1.7 mg/dL (1.6-2.4); Potassium 4.3 mmol/L (3.5-5.1)
[2022-11-17] MEDS: NITROFURAN MACRO 100 MG CAP PO SCH (07:57)
[2022-11-17] MEDS: BACLOFEN 10 MG TAB PO SCH ×2 (07:57→20:48)
[2022-11-17] MEDS: MUPIROCIN 2% OINT 22GM TUBE TOP SCH ×2 (07:57→21:00)
[2022-11-17] MEDS: SENOSIDES 8.6 MG TAB PO SCH (07:57)
[2022-11-17] MEDS: TAMSULOSIN 0.4 MG SR CAP PO SCH (07:57)
[2022-11-17] MEDS: ASPIRIN 81 MG CHEWABLE TABLET PO SCH (07:58)
[2022-11-17] MEDS: AMIODARONE HCL 200 MG TAB FT SCH ×2 (07:58→20:47)
[2022-11-17] MEDS: METOPROLOL TAR 25 MG TAB PO SCH ×2 (07:58→20:49)
[2022-11-17] MEDS: GABAPENTIN 300 MG CAP PO SCH (07:58)
[2022-11-17] MEDS: JEVITY 1.2 CAL LIQUID 1,000 ML BOT FT SCH ×3 (08:00→20:48)
[2022-11-17] MEDS ORDERED: MAGNESIUM SULFATE 1 gm IVPB 1 GM/100 ML BAG IV ONE (09:00)
[2022-11-17 09:59] LABS: MCV 87.3 fL (80-100); MPV 6.8 fL (7.6-11.3)
--- NOTE | 2022-11-17 10:09 | P.PN ---
Subjective Date of Service: 11/17/22 Primary Care Provider: Orlin Chief Complaint: Pneumonia/cystitis Subjective: Improving Patient has pseudomonas and entrococcus in the urine, Serrtia in the blood and sputum Review of Systems 10-point ROS is otherwise unremarkable Physical Examination - Vital Signs Temperature: 97.5 F Blood Pressure: 100/74 Pulse: 129 Respirations: 24 Pulse Ox (%): 99 - Physical Exam General: Alert, In no apparent distress HEENT: Atraumatic, PERRLA, EOMI Neck: Supple, JVD not distended Respiratory: Clear to auscultation bilaterally, Normal air movement Cardiovascular: Regular rate/rhythm, Normal S1 S2 Gastrointestinal: Normal bowel sounds, No tenderness Musculoskeletal: No tenderness Integumentary: No rashes Neurological: Normal speech, Normal tone, Normal affect Lymphatics: No axilla or inguinal lymphadenopathy - Studies Microbiology Data (last 24 hrs): 11/12/22 13:25 Blood - Blood Aerobic Blood Culture - Final Serratia Marcescens 11/12/22 13:25 Blood - Blood Blood Culture Gram Stain - Final Assessment And Plan - Current Problems (Diagnosis) (1) Gram-neg septicemia Current Visit: Yes Status: Acute Plan: will await antibiotigram to see what antibiotics he needs 2/ serrtia in the blood and sputum. Sensitive to meropenem (2) Pneumonia Current Visit: Yes Status: Acute Plan: admit to the unit continue fluids and antibiotics. Will await blood cultures. consult to Dr. Beaver 11/[address] Beaver. He needs 2 weeks of meropenemn Qualifiers: Pneumonia type: due to unspecified organism Laterality: bilateral Lung location: lower lobe of lung Qualified Code(s): J18.9 - Pneumonia, unspecified organism (3) Atrial fibrillation Current Visit: No Status: Acute Plan: Patient is stable. Will continue amiodarone and metoprolol Qualifiers: Atrial fibrillation type: paroxysmal Qualified Code(s): I48.0 - Paroxysmal atrial fibrillation (4) HTN (hypertension) Current Visit: No Status: Chronic Plan: He is currently hypotensive. Will hold the diltiazem Qualifiers: Hypertension type: primary hypertension Qualified Code(s): I10 - Essential (primary) hypertension (5) Respiratory muscle paralysis Current Visit: No Status: Chronic Plan: continue chronic vent management (6) Hypernatremia Current Visit: Yes Status: Acute Plan: improving with fluids. Dr. Wheeler is following (7) Anemia Current Visit: No Status: Acute Plan: 11/17 will order 2 units of blood. He should be on high dose protonix. Will consider an outpatient scope Qualifiers: Anemia type: unspecified type Qualified Code(s): D64.9 - Anemia, unspecified (8) ALS (amyotrophic lateral sclerosis) Current Visit: No Status: Chronic Plan: patient is at his baseline Discharge Plan: Home Plan to discharge in: 48 Hours Physician Review: Patient Assessed, Agree with Above Assessment and Plan Critical Care: Yes Time Spent Managing PTS Care (In Minutes): 30
--- NOTE | 2022-11-17 10:54 | P.PN ---
Subjective Date of Service: 11/17/22 Primary Care Provider: Orlin Chief Complaint: Pneumonia/cystitis Subjective: Improving (Patient is doing better feeling better in no obvious distress count is mildly elevated) Review of Systems is unable to be obtained Physical Examination - Vital Signs Temperature: 97.5 F Blood Pressure: 100/74 Pulse: 129 Respirations: 24 Pulse Ox (%): 99 - Physical Exam General: Alert, Cooperative Respiratory: Clear to auscultation bilaterally, Normal air movement - Studies Microbiology Data (last 24 hrs): 11/12/22 13:25 Blood - Blood Aerobic Blood Culture - Final Serratia Marcescens 11/12/22 13:25 Blood - Blood Blood Culture Gram Stain - Final Assessment And Plan - Current Problems (Diagnosis) (1) Pneumonia Current Visit: Yes Status: Acute Plan: Patient is currently improving blood cultures sputum cultures both positive for Serratia sensitive to meropenem urine Pseudomonas shows intermediate sensitivity to Macrodantin referral resistant Enterococcus is also isolated in the urine Qualifiers: Pneumonia type: due to unspecified organism Laterality: bilateral Lung location: lower lobe of lung Qualified Code(s): J18.9 - Pneumonia, unspecified organism (2) Iron (Fe) deficiency anemia Current Visit: Yes Status: Acute Plan: Anemia possible iron deficiency we will start on iron transfusions she has become anemic again (3) Bacteremia Current Visit: Yes Status: Acute Plan: Serratia isolated from the blood sensitive to meropenem labs reviewed (4) Vancomycin resistant Enterococcus Current Visit: Yes Status: Acute Plan: Patient has VRE isolated from the urine add some Macrodantin related in the urine increase Cogentin to 100 mg every 6 hours ID consult Physician Review: Patient Assessed, Agree with Above Assessment and Plan
[2022-11-17] MEDS: SOD FERRIC GLUC COMPLX/SUCROSE 250 MG in NA CHLORIDE 0.9% 250 ML IV SCH (12:04)
[2022-11-17] MEDS: NITROFURAN MACRO 50 MG CAP PO SCH ×3 (12:07→20:49)
[2022-11-17] MEDS ORDERED: NITROFURAN MACRO 100 MG CAP PO SCH (13:00)
[2022-11-17] MEDS ORDERED: NA CHLORIDE 0.9% 500 ML IV ONE (13:08)
[2022-11-17] MEDS: PANTOPRAZOLE 40MG TABLET PO SCH (17:06)
[2022-11-17] MEDS: ENOXAPARIN 30 MG/0.3 ML SQ SCH (17:09)
--- NOTE | 2022-11-17 18:28 | PN ---
Date of Progress Note: 11/17/2022 Subjective: The patient was seen and examined at bedside in the ICU. He remains on ventilator with a tracheostomy. He is complaining of some weakness, but otherwise denies any other complaints. Physical Examination: Vital Signs: Showing temperature of 96.9, pulse rate of 125, respiratory rate of 18, and O2 saturati on of 99% on 30% FiO2 on the mechanical ventilator. General: He appears cachectic, malnourished. HEENT: He has atraumatic head. Tracheostomy in place. Abdomen: Soft and nontender. PEG tube in place. Extremities: Showed no evidence of edema. Laboratory Data: Showing sodium of 132, potassium of 4.3, BUN of 19, and creatinine of 0.42. His sp utum cultures are showing Serratia marcescens and blood cultures were positive previously with Serrat ia marcescens also and urine cultures are growing Pseudomonas aeruginosa . Current Medications: Include Tylenol p.r.n., aspirin, baclofen 10 mg t.i.d., Dilaudid p.r.n. for monica n, Jevity with 30 mL of free water flushes before and after, meropenem, metoprolol, senna and ___ along with tamsulosin. Impression: 1.Hyponatremia secondary to possibly from hypovolemia. We will go ahead and give him gentle bolus o f normal saline and monitor him closely. 2.Hypokalemia, improving. 3.Bacteremia with gram-negative pneumonia. Continue antibiotics and monitor closely. 4.Hyperphosphatemia. Continue to replete phosphorus. 5.Hypomagnesemia. Magnesium is also being repleted at this time. Plan: Overall, patient's prognosis remains poor. However, we will go ahead and give him some small bolus of normal saline to improve his volume status and his sodium, and monitor him closely. Continue all other medications and plan of ca re. VV/MODL Voice ID: [id number] Report ID: [id number]
[2022-11-17] MEDS: LEVALBUTEROL 0.63 MG/3 ML NEB NEB PRN (20:33)
[2022-11-17] MEDS ORDERED: NA CHLORIDE 0.9% 250 ML ONE (22:24)
[2022-11-18] MEDS: Meropenem 1,000 MG in NA CHLORIDE 0.9% 100 ML IV SCH ×3 (00:35→17:13)
[2022-11-18] MEDS: LEVALBUTEROL 0.63 MG/3 ML NEB NEB PRN (01:20)
[2022-11-18] MEDS: IPRATROPIUM BROM 0.5MG/2.5ML NEB SCH ×4 (01:20→19:16)
[2022-11-18 05:19] LABS: Hematocrit 26.9 % (39.6-49.0)
[2022-11-18] MEDS: METOPROLOL TAR 25 MG TAB PO SCH ×2 (08:12→21:06)
[2022-11-18] MEDS: NITROFURAN MACRO 50 MG CAP PO SCH ×4 (08:12→21:04)
[2022-11-18] MEDS: PANTOPRAZOLE 40MG TABLET PO SCH ×2 (08:13→15:27)
[2022-11-18] MEDS: GABAPENTIN 300 MG CAP PO SCH (08:13)
[2022-11-18] MEDS: ASPIRIN 81 MG CHEWABLE TABLET PO SCH (08:13)
[2022-11-18] MEDS: TAMSULOSIN 0.4 MG SR CAP PO SCH (08:13)
[2022-11-18] MEDS: BACLOFEN 10 MG TAB PO SCH ×2 (08:13→21:03)
[2022-11-18] MEDS: JEVITY 1.2 CAL LIQUID 1,000 ML BOT FT SCH ×3 (08:14→21:05)
[2022-11-18] MEDS: AMIODARONE HCL 200 MG TAB FT SCH ×2 (08:14→21:04)
[2022-11-18] MEDS: SENOSIDES 8.6 MG TAB PO SCH (08:18)
[2022-11-18] MEDS: MUPIROCIN 2% OINT 22GM TUBE TOP SCH ×2 (08:31→21:11)
[2022-11-18] MEDS: SOD FERRIC GLUC COMPLX/SUCROSE 250 MG in NA CHLORIDE 0.9% 250 ML IV SCH (09:02)
[2022-11-18] MEDS: HYDROMORPHONE HCL 0.5 MG/0.5 ML INJ IV PRN ×3 (09:05→21:12)
[2022-11-18 09:10] LABS: Albumin 1.8 g/dL (3.4-5.0); Bilirubin Total 1.1 mg/dL (0.2-1.0); Phosphorus 3.1 mg/dL (2.5-4.9); Potassium 4.2 mmol/L (3.5-5.1); Protein, Total 6.2 g/dL (6.4-8.2)
--- NOTE | 2022-11-18 10:51 | P.PN ---
Subjective Date of Service: 11/18/22 Primary Care Provider: Orlin Chief Complaint: Pneumonia/cystitis Patient has pseudomonas and entrococcus in the urine, Serrtia in the blood and sputum Review of Systems 10-point ROS is otherwise unremarkable Physical Examination - Vital Signs Temperature: 97.9 F Blood Pressure: 93/65 Pulse: 124 Respirations: 27 Pulse Ox (%): 100 - Physical Exam General: Alert, In no apparent distress HEENT: Atraumatic, PERRLA, EOMI Neck: Supple, JVD not distended Respiratory: Clear to auscultation bilaterally, Normal air movement Cardiovascular: Regular rate/rhythm, Normal S1 S2 Gastrointestinal: Normal bowel sounds, No tenderness Musculoskeletal: No tenderness Integumentary: No rashes Neurological: Normal speech, Normal tone, Normal affect Lymphatics: No axilla or inguinal lymphadenopathy - Studies Microbiology Data (last 24 hrs): 11/12/22 13:25 Blood - Blood Aerobic Blood Culture - Final Serratia Marcescens 11/12/22 13:25 Blood - Blood Blood Culture Gram Stain - Final 11/12/22 13:25 Blood - Blood Anaerobic Blood Culture - Final No growth in 5 days. Assessment And Plan - Current Problems (Diagnosis) (1) Gram-neg septicemia Current Visit: Yes Status: Acute Plan: will await antibiotigram to see what antibiotics he needs 2/1 serrtia in the blood and sputum. Sensitive to meropenem (2) Pneumonia Current Visit: Yes Status: Acute Plan: admit to the unit continue fluids and antibiotics. Will await blood cultures. consult to Dr. Beaver 11/[address] Beaver. He needs 2 weeks of meropenemn Qualifiers: Pneumonia type: due to unspecified organism Laterality: bilateral Lung location: lower lobe of lung Qualified Code(s): J18.9 - Pneumonia, unspecified organism (3) Atrial fibrillation Current Visit: No Status: Acute Plan: Patient is stable. Will continue amiodarone and metoprolol Qualifiers: Atrial fibrillation type: paroxysmal Qualified Code(s): I48.0 - Paroxysmal atrial fibrillation (4) HTN (hypertension) Current Visit: No Status: Chronic Plan: He is currently hypotensive. Will hold the diltiazem Qualifiers: Hypertension type: primary hypertension Qualified Code(s): I10 - Essential (primary) hypertension (5) Respiratory muscle paralysis Current Visit: No Status: Chronic Plan: continue chronic vent management (6) Hypernatremia Current Visit: Yes Status: Acute Plan: improving with fluids. Dr. Wheeler is following (7) Anemia Current Visit: No Status: Acute Plan: 11/18 hb is back up to 9. Will keep him on protonix. He is always going to be a high risk for gi bleed. May get an outpatient work up Qualifiers: Anemia type: unspecified type Qualified Code(s): D64.9 - Anemia, unspecified (8) ALS (amyotrophic lateral sclerosis) Current Visit: No Status: Chronic Plan: patient is at his baseline Discharge Plan: Home Plan to discharge in: 24 Hours - Code Status/Comfort Care Code Status Assessed: No Physician Review: Patient Assessed, Agree with Above Assessment and Plan Critical Care: Yes Time Spent Managing PTS Care (In Minutes): 20
[2022-11-18] MEDS: ENOXAPARIN 30 MG/0.3 ML SQ SCH (17:13)
[2022-11-18] MEDS: LORAZEPAM 0.5 MG TABLET PO PRN (21:27)
[2022-11-19] MEDS: Meropenem 1,000 MG in NA CHLORIDE 0.9% 100 ML IV SCH ×3 (00:27→17:00)
[2022-11-19] MEDS: IPRATROPIUM BROM 0.5MG/2.5ML NEB SCH ×4 (01:00→19:40)
[2022-11-19] MEDS: JEVITY 1.2 CAL LIQUID 1,000 ML BOT FT SCH ×3 (07:42→20:36)
[2022-11-19] MEDS: ASPIRIN 81 MG CHEWABLE TABLET PO SCH (07:42)
[2022-11-19] MEDS: PANTOPRAZOLE 40MG TABLET PO SCH ×2 (07:42→17:00)
[2022-11-19] MEDS: AMIODARONE HCL 200 MG TAB FT SCH ×2 (07:42→20:39)
[2022-11-19] MEDS: LORAZEPAM 0.5 MG TABLET PO PRN ×3 (07:42→20:39)
[2022-11-19] MEDS: GABAPENTIN 300 MG CAP PO SCH (07:42)
[2022-11-19] MEDS: METOPROLOL TAR 25 MG TAB PO SCH ×2 (07:42→20:39)
[2022-11-19] MEDS: BACLOFEN 10 MG TAB PO SCH ×2 (07:43→20:38)
[2022-11-19] MEDS: NITROFURAN MACRO 50 MG CAP PO SCH ×4 (07:44→20:38)
--- NOTE | 2022-11-19 08:07 | P.DS ---
Admission Date: 11/12/22 Discharge Date: 11/19/22 Primary Care Provider: Orlin Disposition: ROUTINE DISCHARGE Discharge Condition: GOOD Reason for Admission: Pneumonia/cystitis - Problems (1) Gram-neg septicemia Current Visit: Yes Status: Acute (2) Pneumonia Current Visit: Yes Status: Acute Qualifiers: Pneumonia type: due to unspecified organism Laterality: bilateral Lung location: lower lobe of lung Qualified Code(s): J18.9 - Pneumonia, unspecified organism (3) Atrial fibrillation Current Visit: No Status: Acute Qualifiers: Atrial fibrillation type: paroxysmal Qualified Code(s): I48.0 - Paroxysmal atrial fibrillation (4) HTN (hypertension) Current Visit: No Status: Chronic Qualifiers: Hypertension type: primary hypertension Qualified Code(s): I10 - Essential (primary) hypertension (5) Respiratory muscle paralysis Current Visit: No Status: Chronic (6) Hypernatremia Current Visit: Yes Status: Acute (7) Anemia Current Visit: No Status: Acute Qualifiers: Anemia type: unspecified type Qualified Code(s): D64.9 - Anemia, unspecified (8) ALS (amyotrophic lateral sclerosis) Current Visit: No Status: Chronic Brief History of Present Illness: Patient is an unfortunate patient with advanced ALS. He is at home Was getting weak and brought to the ER. He was found to have a pneumonia. He is on a chronic vent. the patient is not able to speak due to this. Will admit him to the icu. The patient needs vent management. Hospital Course: Patient was admitted for pneumonia. He was admitted to the unit as he is on a chronic vent. The patient grew MDR serretia in his cultures. Needs Meropenem. Urine grew pseudomonas. The patient required 2 transfusion. a total of 3 units of prbc. He is on protonix bid. We can consider an outpatient GI consult. Will have him follow up via telehealth if the family is able to. Please have the sons call the office to set up an appointment Vital Signs/Physical Exam: Temp Pulse Resp BP Pulse Ox 96.9 F 128 H 20 120/81 100 11/19/22 00:00 11/19/22 07:42 11/19/22 06:00 11/19/22 07:42 11/19/22 06:00 General: Alert, In no apparent distress HEENT: Atraumatic, PERRLA, EOMI Neck: Supple, JVD not distended Respiratory: Clear to auscultation bilaterally, Normal air movement Cardiovascular: Regular rate/rhythm, Normal S1 S2 Gastrointestinal: Normal bowel sounds, No tenderness Musculoskeletal: No tenderness Integumentary: No rashes Neurological: Normal speech, Normal tone, Normal affect Lymphatics: No axilla or inguinal lymphadenopathy Laboratory Data at Discharge: WBC 19.60 K/uL (4.3-10.9) H 11/17/22 09:38 Hgb 9.1 g/dL (13.6-17.9) L D 11/18/22 05:00 Hct 26.9 % (39.6-49.0) L 11/18/22 05:00 Plt Count 380 K/uL (152-406) 11/17/22 09:38 Sodium 133 mmol/L (136-145) L 11/18/22 08:26 Potassium 4.2 mmol/L (3.5-5.1) 11/18/22 08:26 BUN 15 mg/dL (7-18) 11/18/22 08:26 Creatinine 0.32 mg/dL (0.70-1.30) L 11/18/22 08:26 Glucose 103 mg/dL (74-106) 11/18/22 08:26 Uric Acid 4.2 mg/dL (3.5-7.2) 11/16/22 05:05 Phosphorus 3.1 mg/dL (2.5-4.9) 11/18/22 08:26 Magnesium 2.0 mg/dL (1.6-2.4) 11/18/22 08:26 Total Bilirubin 1.1 mg/dL (0.2-1.0) H 11/18/22 08:26 AST 23 U/L (15-37) 11/18/22 08:26 ALT 29 U/L (16-61) 11/18/22 08:26 Alkaline Phosphatase 185 U/L (45-117) H 11/18/22 08:26 Triglycerides 84 mg/dL (<150) 11/12/22 15:33 Cholesterol 80 mg/dL (<200) 11/12/22 15:33 HDL Cholesterol 25 mg/dL (40-60) L 11/12/22 15:33 Cholesterol/HDL Ratio 3.20 11/12/22 15:33 Home Medications: Aspirin [Adult Low Dose Aspirin EC] 81 mg PO DAILY 12/02/18 Rivaroxaban [Xarelto] 20 mg PO DAILY 90 Days #90 tablet 12/03/18 Baclofen 10 mg PO BID 08/05/22 Gabapentin 300 mg PO DAILY 08/05/22 Riluzole 50 mg PO BID 08/05/22 Amiodarone HCl [Cordarone*] 200 mg FT BID 90 Days #180 tab NS 08/12/22 Diltiazem Tab [Cardizem Tab*] 30 mg PO Q8H 90 Days #270 tab NS 08/12/22 Metoprolol Tartrate [Lopressor*] 50 mg PO Q8HR 90 Days #270 tab NS 08/12/22 Pantoprazole Sodium [Protonix] 40 mg PO DAILY 90 Days #90 syr 08/12/22 Hyoscyamine Sulfate 0.125 mg PO Q4HR PRN 09/29/22 LORazepam [Lorazepam] 0.5 mg PO Q2HR PRN 09/29/22 Morphine Sulfate 0.5 - 1 ml FT Q4HR PRN 09/29/22 Nutritional Supplement [Boost Max] 325 ml PO TID 09/29/22 Promethazine HCl 25 mg PO Q4HR PRN 09/29/22 Sennosides [Lynn-Guerline] 8.6 mg PO DAILY 09/29/22 Tamsulosin [Flomax] 0.4 mg PO DAILY 09/29/22 Levofloxacin [Levaquin] 500 mg FT DAILY 4 Days #4 10/05/22 Nitrofuran Macro [Macrodantin*] 100 mg PO QID 4 Days #20 cap 11/19/22 Pantoprazole [Protonix Tab*] 40 mg PO BIDAC 90 Days #180 tab 11/19/22 New Medications: Nitrofuran Macro [Macrodantin*] 100 mg PO QID 4 Days #20 cap Pantoprazole [Protonix Tab*] 40 mg PO BIDAC 90 Days #180 tab Diet: Regular Activity: Ad enrique Followup: Sammy Ordaz MD [Primary Care Provider] - 1 Week (can do a tele health visit. Please have the sons call the office [phone]) Physician Review: Patient Assessed, Agree with Above Assessment and Plan Time spent managing pt's care (in minutes): 30
--- NOTE | 2022-11-19 08:13 | P.CNS ---
Primary Care Provider: Orlin Chief Complaint: Pneumonia/cystitis History of Present Illness: Patient is a 57-year-old male with a past medical history significant for ALS, DM 2, atrial fibrillation, hypertension who presents with complaint of shortness of breath. Patient currently on vent support via trach and unable to communicate appropriately. Per nursing staff report patient was on room air at home and family reported that patient started having shortness of breath yesterday. Family attempted suctioning and other measures to improve patient's oxygenation but patient continued to have shortness of breath. Shortness of breath continued today and patient's O2 sat was noted to be in the 80s on room air. No other signs and symptoms reported. Symptoms are aggravated or relieved by nothing. Patient was brought to the hospital due to worsening symptoms. ID has been consulted for IV antibiotics recommendations and management for multiple resistant organisms Allergies ibuprofen Allergy (Verified 06/25/22 18:53) Hives Home Medications: Aspirin [Adult Low Dose Aspirin EC] 81 mg PO DAILY 12/02/18 Rivaroxaban [Xarelto] 20 mg PO DAILY 90 Days #90 tablet 12/03/18 Baclofen 10 mg PO BID 08/05/22 Gabapentin 300 mg PO DAILY 08/05/22 Riluzole 50 mg PO BID 08/05/22 Amiodarone HCl [Cordarone*] 200 mg FT BID 90 Days #180 tab NS 08/12/22 Diltiazem Tab [Cardizem Tab*] 30 mg PO Q8H 90 Days #270 tab NS 08/12/22 Metoprolol Tartrate [Lopressor*] 50 mg PO Q8HR 90 Days #270 tab NS 08/12/22 Pantoprazole Sodium [Protonix] 40 mg PO DAILY 90 Days #90 syr 08/12/22 Hyoscyamine Sulfate 0.125 mg PO Q4HR PRN 09/29/22 LORazepam [Lorazepam] 0.5 mg PO Q2HR PRN 09/29/22 Morphine Sulfate 0.5 - 1 ml FT Q4HR PRN 09/29/22 Nutritional Supplement [Boost Max] 325 ml PO TID 09/29/22 Promethazine HCl 25 mg PO Q4HR PRN 09/29/22 Sennosides [Lynn-Guerline] 8.6 mg PO DAILY 09/29/22 Tamsulosin [Flomax] 0.4 mg PO DAILY 09/29/22 Levofloxacin [Levaquin] 500 mg FT DAILY 4 Days #4 10/05/22 Nitrofuran Macro [Macrodantin*] 100 mg PO QID 4 Days #20 cap 11/19/22 Pantoprazole [Protonix Tab*] 40 mg PO BIDAC 90 Days #180 tab 11/19/22 - Past Medical/Surgical History Diabetic: Yes -: HTN -: HLD -: NIDDM -: L ankle fx -: pancreatitis -: ALS -: Hx Hyponatremia (Dr. Mayers) -: L ankle surgery -: trach - Family History Father Medical History: Hypertension, Diabetes Mother Medical History: Hypertension, Cancer Notes: liver ca with mets - Social History Smoking Status: Unknown if ever smoked Alcohol use: Yes CD- Drugs: No Caffeine use: Yes Review of Systems on trach Physical Examination Temp Pulse Resp BP Pulse Ox 96.9 F 128 H 20 120/81 100 11/19/22 00:00 11/19/22 07:42 11/19/22 06:00 11/19/22 07:42 11/19/22 06:00 General: Alert, In no apparent distress Respiratory: Clear to auscultation bilaterally (anterior lung [place]), Other (on trach and vent dependent) Cardiovascular: Edema (2+ upper extremities), Irregular heart rate/rhythm (a- fib) Capillary refill: >2 Seconds Gastrointestinal: Normal bowel sounds Musculoskeletal: Swelling (2+ upper extremities), Other (history to ALS) Integumentary: Tenderness/swelling (2+ upper extremities) Neurological: Other (Trach in place, non verbal) Urinary: Sanchez catheter (yellow and clear urine) Acetaminophen (Acetaminophen 325 Mg Tablet) 650 mg PO Q6H PRN PRN Reason: TEMP > 100.4' F Last Admin: 11/16/22 20:36 Dose: 650 mg Albuterol Sulfate (Albuterol 2.5 Mg/3 Ml Neb Opal) 2.5 mg NEB [id number] PRN PRN Reason: WHEEZING Last Admin: 11/15/22 19:35 Dose: 2.5 mg Amiodarone HCl (Amiodarone Hcl 200 Mg Tab) 200 mg FT BID [facility] Last Admin: 11/19/22 07:42 Dose: 200 mg Aspirin (Aspirin 81 Mg Chewable Tablet) 81 mg PO DAILY [facility] Last Admin: 11/19/22 07:42 Dose: 81 mg Baclofen (Baclofen 10 Mg Tab) 10 mg PO BID [facility] Last Admin: 11/19/22 07:43 Dose: 10 mg Enoxaparin Sodium (Enoxaparin 30 Mg/0.3 Ml) 30 mg SQ DAILY 5 PM [facility] Last Admin: 11/18/22 17:13 Dose: 30 mg Gabapentin (Gabapentin 300 Mg Cap) 300 mg PO DAILY [facility] Last Admin: 11/19/22 07:42 Dose: 300 mg Hydromorphone HCl (Hydromorphone Hcl 0.5 Mg/0.5 Ml Inj) 0.5 mg IV Q4H PRN PRN Reason: Pain scale 5-7 (Moderate) Last Admin: 11/18/22 21:12 Dose: 0.5 mg Sodium Chloride (Sodium Chloride) 250 mls @ 999 mls/hr IV Q15M PRN PRN Reason: HYPOTENSION Last Admin: 11/12/22 19:55 Dose: 250 mls Meropenem 1,000 mg/ Sodium (Chloride) 100 mls @ 200 mls/hr IV Q8HR [facility] Last Admin: 11/19/22 07:43 Dose: 100 mls Ferric Sodium Gluconate Complex 250 mg/ Sodium Chloride 270 mls @ 135 mls/hr IV DAILY [facility] Stop: 11/20/22 10:59 Last Admin: 11/18/22 09:02 Dose: 270 mls Ipratropium [place] (Ipratropium Brom 0.5mg/2.5ml) 0.5 mg NEB [id number] [facility] Last Admin: 11/19/22 01:00 Dose: 0.5 mg Levalbuterol HCl (Levalbuterol 0.63 Mg/3 Ml Neb) 0.63 mg NEB [id number] PRN PRN Reason: SHORTNESS OF BREATH Last Admin: 11/18/22 01:20 Dose: 0.63 mg Lorazepam (Lorazepam 0.5 Mg Tablet) 0.5 mg PO Q2HR PRN PRN Reason: ANXIETY Last Admin: 11/19/22 07:42 Dose: 0.5 mg Metoprolol Tartrate (Metoprolol Tar 25 Mg Tab) 25 mg PO BID [facility] Last Admin: 11/19/22 07:42 Dose: 25 mg Mupirocin (Mupirocin 2% Oint 22gm Tube) 1 appl TOP BID [facility] Stop: 11/20/22 09:01 Last Admin: 11/18/22 21:11 Dose: 1 appl Nitrofurantoin Macrocrystals (Nitrofuran Macro 50 Mg Cap) 100 mg PO QID [facility]; Protocol Last Admin: 11/19/22 07:44 Dose: 100 mg Ondansetron HCl (Ondansetron 4 Mg/2 Ml Vial) 4 mg IV Q6HP PRN PRN Reason: NAUSEA / VOMITING Ondansetron HCl (Ondansetron 4 Mg/2 Ml Vial) 4 mg IV Q4H PRN PRN Reason: NAUSEA / VOMITING Pantoprazole Sodium (Pantoprazole 40mg Tablet) 40 mg PO BIDAC [facility]; Protocol Last Admin: 11/19/22 07:42 Dose: 40 mg Senna (Senosides 8.6 Mg Tab) 8.6 mg PO DAILY [facility] Last Admin: 11/18/22 08:18 Dose: 8.6 mg Sodium Chloride (Sodium Chloride 0.9% 10ml Inj) 10 ml IV UD PRN PRN Reason: Diluant Sodium Chloride (Flush Normal Saline 10 Ml) 10 ml IV BID [facility] Last Admin: 11/19/22 07:44 Dose: 10 ml Tamsulosin HCl (Tamsulosin 0.4 Mg Sr Cap) 0.4 mg PO DAILY [facility] Last Admin: 11/18/22 08:13 Dose: 0.4 mg Microbiology 11/12/22 13:25 Blood - Blood Aerobic Blood Culture - Final Serratia Marcescens 11/12/22 13:25 Blood - Blood Blood Culture Gram Stain - Final 11/12/22 13:25 Blood - Blood Anaerobic Blood Culture - Final No growth in 5 days. Imagings Data: RAD - Chest Single View - 11/16/2022: FINDINGS: Compared with the chest radiograph from earlier in the day, interval placement of left subclavian approach PICC with tip overlying the superior cavoatrial junction. Aeration lungs similar with bilateral effusions and patchy bilateral airspace disease likely reflecting pneumonia. IMPRESSION: PICC tip in satisfactory position overlying the superior cavoatrial junction RADChest Single View11/16/2022: FINDINGS: Mild improvement in diffuse bilateral pulmonary opacities. Small pleural effusions Normal heart size. Tracheostomy tube in place IMPRESSION: Mild improvement in moderate bilateral pneumonia RAD - Chest Single View - 11/14/2022 FINDINGS: Tracheostomy tube in place. Worsening perihilar and basal confluent airspace opacities, most pronounced at the right base. There may be a small component of right layering pleural effusion. No pneumothorax. Heart is not enlarged. Mediastinal contours are unchanged. IMPRESSION: Progressive bilateral confluent opacities as above, could reflect worsening pneumonia, and/ or pulmonary edema CT - Thorax Wo Con - 11/14/2022: FINDINGS: Tracheostomy tube noted. Large airspace consolidation in the medial left lung base. Moderate infiltrate in the posterior right upper lobe and right lower lobe present. Soft tissue material fills bilateral lower lobe bronchi. Small bilateral pleural effusions. No concerning bony finding. No gross upper abdominal finding. All CT scans are performed using dose optimization technique as appropriate and may include automated exposure control or mA/KV adjustment according to patient size. IMPRESSION: Significant infiltrate/ consolidation in both lung bases, greater on the left.Significant soft tissue material seen in the right and left tracheobronchial tree. Findings would be suggestive of aspiration [facility] Single View11/12/2022: FINDINGS: Moderate to marked bilateral pulmonary opacities. The heart is normal size. Tracheostomy tube in place IMPRESSION: Moderate to marked bilateral pulmonary opacities may indicate pneumonia - Problems (1) Bacteremia Current Visit: Yes Status: Acute Plan: Cultures: 11/13 BC: Negative 11/13 Sputum: GNR - Serratia Marcsesens (MDR), susceptible to meropenem and Pseudomonas Aeruginosa, possible colonization (patient vital signs table, afebrile) 11/12 BC: GNR - Serratia Marcsesens (MDR) Antibiotics: On IV Meropenem from 11/13 Recommendation: Continue IV Meropenem for total of 14 days from 11/13 (repeated BC negative) (2) UTI (urinary tract infection) Current Visit: Yes Status: Acute Plan: Cultures: 11/12 UC: Pseudomonas Aeruginosa (MDR), susceptible to Tobramycin and Enterococcus Faecium (MDR), susceptible to Gentamicin and intermittent to Nitrofurantoin Antibiotics: Current on PO Nitrofurantoin, 11/17 Recommendations: ID agrees with primary team's antibiotic selection PO Nitrofurantoin Can use acetic acid solution for bladder irrigation when patient spikes fever Conclusions/Impression: - Gram-neg septicemia - Pneumonia - Severe protein calorie malnutrition - Atrial fibrillation - HTN (hypertension) - Respiratory muscle paralysis - Hypernatremia - Anemia - ALS (Amyotrophic Lateral Sclerosis) - Pancreatitis ID will closely monitor the patient with signs of infection with fever and WBC trends Case has been discussed with Greg Smith Thank you Dr. Blackwood for consultation
[2022-11-19] MEDS: TAMSULOSIN 0.4 MG SR CAP PO SCH (08:36)
[2022-11-19] MEDS: MUPIROCIN 2% OINT 22GM TUBE TOP SCH ×2 (09:00→20:39)
--- NOTE | 2022-11-19 09:06 | P.PN ---
Date of Service: 11/19/22 Vital Signs Temp Pulse Resp BP Pulse Ox 96.9 F 128 H 20 120/81 100 11/19/22 00:00 11/19/22 07:42 11/19/22 06:00 11/19/22 07:42 11/19/22 06:00 Medications Acetaminophen (Acetaminophen 325 Mg Tablet) 650 mg PO Q6H PRN PRN Reason: TEMP > 100.4' F Last Admin: 11/16/22 20:36 Dose: 650 mg Albuterol Sulfate (Albuterol 2.5 Mg/3 Ml Neb Opal) 2.5 mg NEB [id number] PRN PRN Reason: WHEEZING Last Admin: 11/15/22 19:35 Dose: 2.5 mg Amiodarone HCl (Amiodarone Hcl 200 Mg Tab) 200 mg FT BID [facility] Last Admin: 11/19/22 07:42 Dose: 200 mg Aspirin (Aspirin 81 Mg Chewable Tablet) 81 mg PO DAILY [facility] Last Admin: 11/19/22 07:42 Dose: 81 mg Baclofen (Baclofen 10 Mg Tab) 10 mg PO BID [facility] Last Admin: 11/19/22 07:43 Dose: 10 mg Enoxaparin Sodium (Enoxaparin 30 Mg/0.3 Ml) 30 mg SQ DAILY 5 PM [facility] Last Admin: 11/18/22 17:13 Dose: 30 mg Gabapentin (Gabapentin 300 Mg Cap) 300 mg PO DAILY [facility] Last Admin: 11/19/22 07:42 Dose: 300 mg Hydromorphone HCl (Hydromorphone Hcl 0.5 Mg/0.5 Ml Inj) 0.5 mg IV Q4H PRN PRN Reason: Pain scale 5-7 (Moderate) Last Admin: 11/18/22 21:12 Dose: 0.5 mg Sodium Chloride (Sodium Chloride) 250 mls @ 999 mls/hr IV Q15M PRN PRN Reason: HYPOTENSION Last Admin: 11/12/22 19:55 Dose: 250 mls Meropenem 1,000 mg/ Sodium (Chloride) 100 mls @ 200 mls/hr IV Q8HR [facility] Last Admin: 11/19/22 07:43 Dose: 100 mls Ferric Sodium Gluconate Complex 250 mg/ Sodium Chloride 270 mls @ 135 mls/hr IV DAILY [facility] Stop: 11/20/22 10:59 Last Admin: 11/18/22 09:02 Dose: 270 mls Ipratropium [place] (Ipratropium Brom 0.5mg/2.5ml) 0.5 mg NEB [id number] [facility] Last Admin: 11/19/22 01:00 Dose: 0.5 mg Levalbuterol HCl (Levalbuterol 0.63 Mg/3 Ml Neb) 0.63 mg NEB [id number] PRN PRN Reason: SHORTNESS OF BREATH Last Admin: 11/18/22 01:20 Dose: 0.63 mg Lorazepam (Lorazepam 0.5 Mg Tablet) 0.5 mg PO Q2HR PRN PRN Reason: ANXIETY Last Admin: 11/19/22 07:42 Dose: 0.5 mg Metoprolol Tartrate (Metoprolol Tar 25 Mg Tab) 25 mg PO BID [facility] Last Admin: 11/19/22 07:42 Dose: 25 mg Mupirocin (Mupirocin 2% Oint 22gm Tube) 1 appl TOP BID [facility] Stop: 11/20/22 09:01 Last Admin: 11/18/22 21:11 Dose: 1 appl Nitrofurantoin Macrocrystals (Nitrofuran Macro 50 Mg Cap) 100 mg PO QID [facility]; Protocol Last Admin: 11/19/22 07:44 Dose: 100 mg Ondansetron HCl (Ondansetron 4 Mg/2 Ml Vial) 4 mg IV Q6HP PRN PRN Reason: NAUSEA / VOMITING Ondansetron HCl (Ondansetron 4 Mg/2 Ml Vial) 4 mg IV Q4H PRN PRN Reason: NAUSEA / VOMITING Pantoprazole Sodium (Pantoprazole 40mg Tablet) 40 mg PO BIDAC [facility]; Protocol Last Admin: 11/19/22 07:42 Dose: 40 mg Senna (Senosides 8.6 Mg Tab) 8.6 mg PO DAILY [facility] Last Admin: 11/18/22 08:18 Dose: 8.6 mg Sodium Chloride (Sodium Chloride 0.9% 10ml Inj) 10 ml IV UD PRN PRN Reason: Diluant Sodium Chloride (Flush Normal Saline 10 Ml) 10 ml IV BID [facility] Last Admin: 11/19/22 07:44 Dose: 10 ml Tamsulosin HCl (Tamsulosin 0.4 Mg Sr Cap) 0.4 mg PO DAILY [facility] Last Admin: 11/19/22 08:36 Dose: Not Given Microbiology Results 11/12/22 13:25 Blood - Blood Aerobic Blood Culture - Final Serratia Marcescens 11/12/22 13:25 Blood - Blood Blood Culture Gram Stain - Final 11/12/22 13:25 Blood - Blood Anaerobic Blood Culture - Final No growth in 5 days. Assessment/ Plan: Nephrology No dyspnea No chest pain No new complaints Fatigue and weakness No acute events overnight Vitals, medications, blood work and imaging reviewed in the chart General: In no apparent distress, Cooperative HEENT: Atraumatic Neck: Supple Respiratory: CTA Anteriorly Cardiovascular: No edema, Regular rate/rhythm Gastrointestinal: Non-distended Musculoskeletal: No clubbing, No contractures Integumentary: No rashes, No cyanosis Neurological: Abnormal speech Blood work reviewed in the chart. Imagings Data: [employer] EXAM DESCRIPTION: MARIA LUISAChest Single View11/12/2022 1:05 pm CLINICAL HISTORY: Shortness of breath COMPARISON: September 2022 FINDINGS: Moderate to marked bilateral pulmonary opacities. The heart is normal size. Tracheostomy tube in place IMPRESSION: Moderate to marked bilateral pulmonary opacities may indicate pneumonia. EXAM DESCRIPTION: RAD - ENTEROSTOMY TUBE CHECK W/CONTR - 11/13/2022 9:53 am CLINICAL HISTORY: G tube placement confirmation COMPARISON: No comparisons FINDINGS: There were 2 KUB images obtained prior to and subsequent to retrograde injection of contrast via NG tube. The initial image shows G-tube in place in the midline abdomen. Stomach is not dilated. Air is seen in nondilated small bowel. Following retrograde injection, contrast is seen within the contracted gastric lumen. A small amount of contrast has extended into the duodenal C-loop. Focus of contrast along the right lateral margin of the G-tube does not clearly demonstrate gastric mucosal folds. Small amount of extraluminal contrast cannot be excluded. IMPRESSION: Questionable extraluminal contrast along the right lateral margin of the G-tube. CT abdomen examination without oral or IV contrast could be performed for more definitive assessment. LEFT VENTRICULAR WALL MOTION: ANTERIOR/ APICAL AKINESIS DOPPLER/COLOR FLOW: SEE BELOW COMMENTS: SEVERELY DEPRESSED LEFT VENTRICULAR EJECTION FRACTION 20-25%. ANTERIOR/ WIL SEPTAL/ APICAL AKINESIS. MODERATE MITRAL REGURGITATION. Conclusions/Impression: Proteinuria -No NSAIDs Hyponatremia, improving -Maintain nutrition Hypokalemia -Replete potassium prn -Maintain nutrition HypoPO4 -Replete phosphorus prn -Maintain nutrition Chronic Hypotension -IV Albumin prn Systolic CHF, chronic LVEF 20-25% Pulmonary edema -Daily weight Moderate to severe malnutrition with debility -Continue tube feeds Anemia in chronic illness Iron Deficiency 15% -Monitor H&H -Transfuse PRBCs prn Multifocal PNA Aspiration PNA -Trach status -Continue ventilatory support -Continue abx -ID following
[2022-11-19] MEDS: SENOSIDES 8.6 MG TAB PO SCH (09:31)
[2022-11-19] MEDS: SOD FERRIC GLUC COMPLX/SUCROSE 250 MG in NA CHLORIDE 0.9% 250 ML IV SCH (09:31)
[2022-11-19] MEDS: ACETAMINOPHEN 325 MG TABLET PO PRN ×2 (09:38→18:22)
[2022-11-19] MEDS: ENOXAPARIN 30 MG/0.3 ML SQ SCH (17:00)
[2022-11-19] MEDS: LEVALBUTEROL 0.63 MG/3 ML NEB NEB PRN (19:40)
[2022-11-19] MEDS: HYDROMORPHONE HCL 0.5 MG/0.5 ML INJ IV PRN (22:17)
[2022-11-20] MEDS: Meropenem 1,000 MG in NA CHLORIDE 0.9% 100 ML IV SCH ×3 (01:37→18:06)
[2022-11-20] MEDS: LEVALBUTEROL 0.63 MG/3 ML NEB NEB PRN (01:55)
[2022-11-20] MEDS: IPRATROPIUM BROM 0.5MG/2.5ML NEB SCH ×4 (01:55→20:00)
[2022-11-20] MEDS: HYDROMORPHONE HCL 0.5 MG/0.5 ML INJ IV PRN ×2 (04:48→13:27)
--- NOTE | 2022-11-20 07:37 | P.PN ---
Subjective Date of Service: 11/20/22 Primary Care Provider: Orlin Chief Complaint: Pneumonia/cystitis Subjective: No new changes Patient has pseudomonas and entrococcus in the urine, Serrtia in the blood and sputum plans for discharge pending arrangement of home health, hospice and home antibiotics Review of Systems 10-point ROS is otherwise unremarkable Physical Examination - Vital Signs Temperature: 97.4 F Blood Pressure: 123/87 Pulse: 126 Respirations: 20 Pulse Ox (%): 100 - Physical Exam General: Alert, In no apparent distress HEENT: Atraumatic, PERRLA, EOMI Neck: Supple, JVD not distended Respiratory: Clear to auscultation bilaterally, Normal air movement Cardiovascular: Regular rate/rhythm, Normal S1 S2 Gastrointestinal: Normal bowel sounds, No tenderness Musculoskeletal: No tenderness Integumentary: No rashes Neurological: Normal speech, Normal tone, Normal affect Lymphatics: No axilla or inguinal lymphadenopathy Assessment And Plan - Current Problems (Diagnosis) (1) Gram-neg septicemia Current Visit: Yes Status: Acute Plan: will await antibiotigram to see what antibiotics he needs 11/07 serrtia in the blood and sputum. Sensitive to meropenem (2) Pneumonia Current Visit: Yes Status: Acute Plan: admit to the unit continue fluids and antibiotics. Will await blood cultures. consult to Dr. Beaver 11/[address] Beaver. He needs 2 weeks of meropenemn Qualifiers: Pneumonia type: due to unspecified organism Laterality: bilateral Lung location: lower lobe of lung Qualified Code(s): J18.9 - Pneumonia, unspecified organism (3) Atrial fibrillation Current Visit: No Status: Acute Plan: Patient is stable. Will continue amiodarone and metoprolol Qualifiers: Atrial fibrillation type: paroxysmal Qualified Code(s): I48.0 - Paroxysmal atrial fibrillation (4) HTN (hypertension) Current Visit: No Status: Chronic Plan: He is currently hypotensive. Will hold the diltiazem Qualifiers: Hypertension type: primary hypertension Qualified Code(s): I10 - Essential (primary) hypertension (5) Respiratory muscle paralysis Current Visit: No Status: Chronic Plan: continue chronic vent management (6) Hypernatremia Current Visit: Yes Status: Acute Plan: improving with fluids. Dr. Wheeler is following (7) Anemia Current Visit: No Status: Acute Plan: 11/18 hb is back up to 9. Will keep him on protonix. He is always going to be a high risk for gi bleed. May get an outpatient work up Qualifiers: Anemia type: unspecified type Qualified Code(s): D64.9 - Anemia, unspecified (8) ALS (amyotrophic lateral sclerosis) Current Visit: No Status: Chronic Plan: patient is at his baseline - Plan Plans for discharge when his home health is arranged. Discharge Plan: Home Plan to discharge in: 24 Hours - Code Status/Comfort Care Code Status Assessed: No Physician Review: Patient Assessed, Agree with Above Assessment and Plan Critical Care: Yes Time Spent Managing PTS Care (In Minutes): 20
[2022-11-20] MEDS: ASPIRIN 81 MG CHEWABLE TABLET PO SCH (08:18)
[2022-11-20] MEDS: AMIODARONE HCL 200 MG TAB FT SCH ×2 (08:18→20:50)
[2022-11-20] MEDS: BACLOFEN 10 MG TAB PO SCH ×2 (08:18→20:49)
[2022-11-20] MEDS: METOPROLOL TAR 25 MG TAB PO SCH ×2 (08:18→20:49)
[2022-11-20] MEDS: NITROFURAN MACRO 50 MG CAP PO SCH ×4 (08:18→20:49)
[2022-11-20] MEDS: GABAPENTIN 300 MG CAP PO SCH (08:18)
[2022-11-20] MEDS: PANTOPRAZOLE 40MG TABLET PO SCH ×2 (08:18→18:06)
[2022-11-20] MEDS: SENOSIDES 8.6 MG TAB PO SCH (08:18)
[2022-11-20] MEDS: TAMSULOSIN 0.4 MG SR CAP PO SCH (08:19)
[2022-11-20] MEDS: MUPIROCIN 2% OINT 22GM TUBE TOP SCH (08:19)
[2022-11-20] MEDS: JEVITY 1.2 CAL LIQUID 1,000 ML BOT FT SCH ×3 (08:20→20:50)
[2022-11-20] MEDS: LORAZEPAM 0.5 MG TABLET PO PRN ×4 (08:42→18:06)
[2022-11-20] MEDS: ACETAMINOPHEN 325 MG TABLET PO PRN ×3 (08:42→21:51)
[2022-11-20] MEDS: SOD FERRIC GLUC COMPLX/SUCROSE 250 MG in NA CHLORIDE 0.9% 250 ML IV SCH (09:11)
--- NOTE | 2022-11-20 10:23 | P.PN ---
Subjective Date of Service: 11/20/22 Primary Care Provider: Orlin Chief Complaint: Pneumonia/cystitis Patient lying in bed with RNs assisting hygiene care. No major events upon examination Physical Examination - Vital Signs Temperature: 97.4 F Blood Pressure: 123/87 Pulse: 126 Respirations: 20 Pulse Ox (%): 100 - Physical Exam General: Alert, In no apparent distress Respiratory: Clear to auscultation bilaterally, Other (on trach support) Cardiovascular: Edema (2+ upper extremities), Irregular heart rate/rhythm (a- fib) Capillary refill: >2 Seconds Gastrointestinal: Normal bowel sounds, Other (PEG tube in place) Integumentary: Tenderness/swelling (2+ upper extremities edema), Other (History of ALS) Neurological: Other (Trach support) Urinary: Sanchez catheter (yellow and clear) - Studies Acetaminophen (Acetaminophen 325 Mg Tablet) 650 mg PO Q6H PRN PRN Reason: TEMP > 100.4' F Last Admin: 11/20/22 08:42 Dose: 650 mg Albuterol Sulfate (Albuterol 2.5 Mg/3 Ml Neb Opal) 2.5 mg NEB [id number] PRN PRN Reason: WHEEZING Last Admin: 11/15/22 19:35 Dose: 2.5 mg Amiodarone HCl (Amiodarone Hcl 200 Mg Tab) 200 mg FT BID [facility] Last Admin: 11/20/22 08:18 Dose: 200 mg Aspirin (Aspirin 81 Mg Chewable Tablet) 81 mg PO DAILY [facility] Last Admin: 11/20/22 08:18 Dose: 81 mg Baclofen (Baclofen 10 Mg Tab) 10 mg PO BID [facility] Last Admin: 11/20/22 08:18 Dose: 10 mg Enoxaparin Sodium (Enoxaparin 30 Mg/0.3 Ml) 30 mg SQ DAILY 5 PM [facility] Last Admin: 11/19/22 17:00 Dose: 30 mg Gabapentin (Gabapentin 300 Mg Cap) 300 mg PO DAILY [facility] Last Admin: 11/20/22 08:18 Dose: 300 mg Hydromorphone HCl (Hydromorphone Hcl 0.5 Mg/0.5 Ml Inj) 0.5 mg IV Q4H PRN PRN Reason: Pain scale 5-7 (Moderate) Last Admin: 11/20/22 04:48 Dose: 0.5 mg Sodium Chloride (Sodium Chloride) 250 mls @ 999 mls/hr IV Q15M PRN PRN Reason: HYPOTENSION Last Admin: 11/12/22 19:55 Dose: 250 mls Meropenem 1,000 mg/ Sodium (Chloride) 100 mls @ 200 mls/hr IV Q8HR [facility] Last Admin: 11/20/22 08:21 Dose: 100 mls Ferric Sodium Gluconate Complex 250 mg/ Sodium Chloride 270 mls @ 135 mls/hr IV DAILY [facility] Stop: 11/20/22 10:59 Last Admin: 11/20/22 09:11 Dose: 270 mls Ipratropium [place] (Ipratropium Brom 0.5mg/2.5ml) 0.5 mg NEB [id number] [facility] Last Admin: 11/20/22 08:46 Dose: 0.5 mg Levalbuterol HCl (Levalbuterol 0.63 Mg/3 Ml Neb) 0.63 mg NEB [id number] PRN PRN Reason: SHORTNESS OF BREATH Last Admin: 11/20/22 01:55 Dose: 0.63 mg Lorazepam (Lorazepam 0.5 Mg Tablet) 0.5 mg PO Q2HR PRN PRN Reason: ANXIETY Last Admin: 11/20/22 08:42 Dose: 0.5 mg Metoprolol Tartrate (Metoprolol Tar 25 Mg Tab) 25 mg PO BID [facility] Last Admin: 11/20/22 08:18 Dose: 25 mg Nitrofurantoin Macrocrystals (Nitrofuran Macro 50 Mg Cap) 100 mg PO QID [facility]; Protocol Last Admin: 11/20/22 08:18 Dose: 100 mg Ondansetron HCl (Ondansetron 4 Mg/2 Ml Vial) 4 mg IV Q6HP PRN PRN Reason: NAUSEA / VOMITING Ondansetron HCl (Ondansetron 4 Mg/2 Ml Vial) 4 mg IV Q4H PRN PRN Reason: NAUSEA / VOMITING Pantoprazole Sodium (Pantoprazole 40mg Tablet) 40 mg PO BIDAC [facility]; Protocol Last Admin: 11/20/22 08:18 Dose: 40 mg Senna (Senosides 8.6 Mg Tab) 8.6 mg PO DAILY [facility] Last Admin: 11/20/22 08:18 Dose: 8.6 mg Sodium Chloride (Sodium Chloride 0.9% 10ml Inj) 10 ml IV UD PRN PRN Reason: Diluant Sodium Chloride (Flush Normal Saline 10 Ml) 10 ml IV BID [facility] Last Admin: 11/20/22 08:20 Dose: 10 ml Tamsulosin HCl (Tamsulosin 0.4 Mg Sr Cap) 0.4 mg PO DAILY [facility] Last Admin: 11/20/22 08:19 Dose: 0.4 mg Microbiology Data (last 24 hrs): Microbiology 11/12/22 13:25 Blood - Blood Aerobic Blood Culture - Final Serratia Marcescens 11/12/22 13:25 Blood - Blood Blood Culture Gram Stain - Final 11/12/22 13:25 Blood - Blood Anaerobic Blood Culture - Final No growth in 5 days. Assessment And Plan - Current Problems (Diagnosis) (1) Bacteremia Current Visit: Yes Status: Acute Plan: Cultures: 11/13 BC: Negative 11/13 Sputum: GNR - Serratia Marcsesens (MDR), susceptible to meropenem and Pseudomonas Aeruginosa, possible colonization (patient vital signs table, afebrile) 11/12 BC: GNR - Serratia Marcsesens (MDR) Antibiotics: On IV Meropenem from 11/13 Recommendation: Continue IV Meropenem for total of 14 days from 11/13 (repeated BC negative) (2) UTI (urinary tract infection) Current Visit: Yes Status: Acute Plan: Cultures: 11/12 UC: Pseudomonas Aeruginosa (MDR), susceptible to Tobramycin and Enterococcus Faecium (MDR), susceptible to Gentamicin and intermittent to Nitrofurantoin Antibiotics: Current on PO Nitrofurantoin, 11/17 Recommendations: ID agrees with primary team's antibiotic selection PO Nitrofurantoin Can use acetic acid solution for bladder irrigation when patient spikes fever - Plan - Gram-neg septicemia - Pneumonia - Severe protein calorie malnutrition - Atrial fibrillation - HTN (hypertension) - Respiratory muscle paralysis - Hypernatremia - Anemia - ALS (Amyotrophic Lateral Sclerosis) - Pancreatitis Plans for discharge pending arrangement of home health, hospice and home antibiotics ID will closely monitor the patient with signs of infection with fever and WBC trends Case has been discussed with Dr. Garcia, N Physician Review: Patient Assessed, Agree with Above Assessment and Plan
[2022-11-20] MEDS: ENOXAPARIN 30 MG/0.3 ML SQ SCH (18:06)
--- NOTE | 2022-11-20 20:11 | P.PN ---
Date of Service: 11/20/22 Vital Signs Temp Pulse Resp BP Pulse Ox 97 F 125 H 22 H 135/94 H 100 11/20/22 16:00 11/20/22 18:00 11/20/22 18:00 11/20/22 18:00 11/20/22 18:00 Medications Acetaminophen (Acetaminophen 325 Mg Tablet) 650 mg PO Q6H PRN PRN Reason: TEMP > 100.4' F Last Admin: 11/20/22 13:42 Dose: 650 mg Albuterol Sulfate (Albuterol 2.5 Mg/3 Ml Neb Opal) 2.5 mg NEB [id number] PRN PRN Reason: WHEEZING Last Admin: 11/15/22 19:35 Dose: 2.5 mg Amiodarone HCl (Amiodarone Hcl 200 Mg Tab) 200 mg FT BID [facility] Last Admin: 11/20/22 08:18 Dose: 200 mg Aspirin (Aspirin 81 Mg Chewable Tablet) 81 mg PO DAILY [facility] Last Admin: 11/20/22 08:18 Dose: 81 mg Baclofen (Baclofen 10 Mg Tab) 10 mg PO BID [facility] Last Admin: 11/20/22 08:18 Dose: 10 mg Enoxaparin Sodium (Enoxaparin 30 Mg/0.3 Ml) 30 mg SQ DAILY 5 PM [facility] Last Admin: 11/20/22 18:06 Dose: 30 mg Gabapentin (Gabapentin 300 Mg Cap) 300 mg PO DAILY [facility] Last Admin: 11/20/22 08:18 Dose: 300 mg Hydromorphone HCl (Hydromorphone Hcl 0.5 Mg/0.5 Ml Inj) 0.5 mg IV Q4H PRN PRN Reason: Pain scale 5-7 (Moderate) Last Admin: 11/20/22 13:27 Dose: 0.5 mg Sodium Chloride (Sodium Chloride) 250 mls @ 999 mls/hr IV Q15M PRN PRN Reason: HYPOTENSION Last Admin: 11/12/22 19:55 Dose: 250 mls Meropenem 1,000 mg/ Sodium (Chloride) 100 mls @ 200 mls/hr IV Q8HR [facility] Last Admin: 11/20/22 18:06 Dose: 100 mls Ipratropium [place] (Ipratropium Brom 0.5mg/2.5ml) 0.5 mg NEB [id number] [facility] Last Admin: 11/20/22 13:44 Dose: 0.5 mg Levalbuterol HCl (Levalbuterol 0.63 Mg/3 Ml Neb) 0.63 mg NEB [id number] PRN PRN Reason: SHORTNESS OF BREATH Last Admin: 11/20/22 01:55 Dose: 0.63 mg Lorazepam (Lorazepam 0.5 Mg Tablet) 0.5 mg PO Q2HR PRN PRN Reason: ANXIETY Last Admin: 11/20/22 18:06 Dose: 0.5 mg Metoprolol Tartrate (Metoprolol Tar 25 Mg Tab) 25 mg PO BID [facility] Last Admin: 11/20/22 08:18 Dose: 25 mg Nitrofurantoin Macrocrystals (Nitrofuran Macro 50 Mg Cap) 100 mg PO QID [facility]; Protocol Last Admin: 11/20/22 18:07 Dose: 100 mg Ondansetron HCl (Ondansetron 4 Mg/2 Ml Vial) 4 mg IV Q6HP PRN PRN Reason: NAUSEA / VOMITING Ondansetron HCl (Ondansetron 4 Mg/2 Ml Vial) 4 mg IV Q4H PRN PRN Reason: NAUSEA / VOMITING Pantoprazole Sodium (Pantoprazole 40mg Tablet) 40 mg PO BIDAC [facility]; Protocol Last Admin: 11/20/22 18:06 Dose: 40 mg Senna (Senosides 8.6 Mg Tab) 8.6 mg PO DAILY [facility] Last Admin: 11/20/22 08:18 Dose: 8.6 mg Sodium Chloride (Sodium Chloride 0.9% 10ml Inj) 10 ml IV UD PRN PRN Reason: Diluant Sodium Chloride (Flush Normal Saline 10 Ml) 10 ml IV BID [facility] Last Admin: 11/20/22 08:20 Dose: 10 ml Tamsulosin HCl (Tamsulosin 0.4 Mg Sr Cap) 0.4 mg PO DAILY [facility] Last Admin: 11/20/22 08:19 Dose: 0.4 mg Microbiology Results 11/12/22 13:25 Blood - Blood Aerobic Blood Culture - Final Serratia Marcescens 11/12/22 13:25 Blood - Blood Blood Culture Gram Stain - Final 11/12/22 13:25 Blood - Blood Anaerobic Blood Culture - Final No growth in 5 days. Assessment/ Plan: Nephrology No dyspnea No chest pain No new complaints Fatigue and weakness No acute events overnight Vitals, medications, blood work and imaging reviewed in the chart General: In no apparent distress, Cooperative HEENT: Atraumatic Neck: Supple Respiratory: CTA Anteriorly Cardiovascular: No edema, Regular rate/rhythm Gastrointestinal: Non-distended Musculoskeletal: No clubbing, No contractures Integumentary: No rashes, No cyanosis Neurological: Abnormal speech Blood work reviewed in the chart. Imagings Data: [employer]-bkg EXAM DESCRIPTION: MARIA LUISAChest Single View11/12/2022 1:05 pm CLINICAL HISTORY: Shortness of breath COMPARISON: September 2022 FINDINGS: Moderate to marked bilateral pulmonary opacities. The heart is normal size. Tracheostomy tube in place IMPRESSION: Moderate to marked bilateral pulmonary opacities may indicate pneumonia. EXAM DESCRIPTION: RAD - ENTEROSTOMY TUBE CHECK W/CONTR - 11/13/2022 9:53 am CLINICAL HISTORY: G tube placement confirmation COMPARISON: No comparisons FINDINGS: There were 2 KUB images obtained prior to and subsequent to retrograde injection of contrast via NG tube. The initial image shows G-tube in place in the midline abdomen. Stomach is not dilated. Air is seen in nondilated small bowel. Following retrograde injection, contrast is seen within the contracted gastric lumen. A small amount of contrast has extended into the duodenal C-loop. Focus of contrast along the right lateral margin of the G-tube does not clearly demonstrate gastric mucosal folds. Small amount of extraluminal contrast cannot be excluded. IMPRESSION: Questionable extraluminal contrast along the right lateral margin of the G-tube. CT abdomen examination without oral or IV contrast could be performed for more definitive assessment. LEFT VENTRICULAR WALL MOTION: ANTERIOR/ APICAL AKINESIS DOPPLER/COLOR FLOW: SEE BELOW COMMENTS: SEVERELY DEPRESSED LEFT VENTRICULAR EJECTION FRACTION 20-25%. ANTERIOR/ WIL SEPTAL/ APICAL AKINESIS. MODERATE MITRAL REGURGITATION. Conclusions/Impression: Proteinuria -No NSAIDs Hyponatremia, improving -Maintain nutrition Hypokalemia -Replete potassium prn -Maintain nutrition HypoPO4 -Replete phosphorus prn -Maintain nutrition Chronic Hypotension -IV Albumin prn Systolic CHF, chronic LVEF 20-25% Pulmonary edema -Daily weight Moderate to severe malnutrition with debility -Continue tube feeds Anemia in chronic illness Iron Deficiency 15% -Monitor H&H -Transfuse PRBCs prn Multifocal PNA Aspiration PNA -Trach status -Continue ventilatory support -Continue abx -ID following Case reviewed with Dr. Ordaz
[2022-11-21] MEDS: Meropenem 1,000 MG in NA CHLORIDE 0.9% 100 ML IV SCH ×3 (01:01→17:01)
[2022-11-21] MEDS: IPRATROPIUM BROM 0.5MG/2.5ML NEB SCH ×4 (02:40→20:30)
[2022-11-21] MEDS: ASPIRIN 81 MG CHEWABLE TABLET PO SCH (08:01)
[2022-11-21] MEDS: TAMSULOSIN 0.4 MG SR CAP PO SCH (08:01)
[2022-11-21] MEDS: METOPROLOL TAR 25 MG TAB PO SCH ×2 (08:01→19:41)
[2022-11-21] MEDS: AMIODARONE HCL 200 MG TAB FT SCH ×2 (08:01→19:41)
[2022-11-21] MEDS: SENOSIDES 8.6 MG TAB PO SCH (08:01)
[2022-11-21] MEDS: LORAZEPAM 0.5 MG TABLET PO PRN ×4 (08:01→19:58)
[2022-11-21] MEDS: ACETAMINOPHEN 325 MG TABLET PO PRN ×2 (08:01→17:01)
[2022-11-21] MEDS: PANTOPRAZOLE 40MG TABLET PO SCH ×2 (08:01→17:02)
[2022-11-21] MEDS: GABAPENTIN 300 MG CAP PO SCH (08:02)
[2022-11-21] MEDS: JEVITY 1.2 CAL LIQUID 1,000 ML BOT FT SCH ×3 (08:02→19:43)
[2022-11-21] MEDS: BACLOFEN 10 MG TAB PO SCH ×2 (08:03→19:41)
[2022-11-21] MEDS: NITROFURAN MACRO 50 MG CAP PO SCH ×4 (08:03→19:42)
--- NOTE | 2022-11-21 09:19 | P.PN ---
Subjective Date of Service: 11/21/22 Primary Care Provider: Orlin Chief Complaint: Pneumonia/cystitis Patient lying in bed with no major events upon examination Physical Examination - Vital Signs Temperature: 97.0 F Blood Pressure: 112/86 Pulse: 126 Respirations: 20 Pulse Ox (%): 100 - Physical Exam General: Alert, In no apparent distress Respiratory: Clear to auscultation bilaterally, Other (Trach dependent) Cardiovascular: Edema (2+ UE), Irregular heart rate/rhythm (a-fib) Capillary refill: >2 Seconds Gastrointestinal: Normal bowel sounds, Other (PEG in place) Musculoskeletal: Swelling (2+ UEs), Other (ALS) Integumentary: Tenderness/swelling (2+ UEs) Neurological: Other (ALS) Urinary: Sanchez catheter (yellow and clear) - Studies Active Medications Acetaminophen (Acetaminophen 325 Mg Tablet) 650 mg PO Q6H PRN PRN Reason: TEMP > 100.4' F Last Admin: 11/21/22 08:01 Dose: 650 mg Albuterol Sulfate (Albuterol 2.5 Mg/3 Ml Neb Opal) 2.5 mg NEB [id number] PRN PRN Reason: WHEEZING Last Admin: 11/15/22 19:35 Dose: 2.5 mg Amiodarone HCl (Amiodarone Hcl 200 Mg Tab) 200 mg FT BID [facility] Last Admin: 11/21/22 08:01 Dose: 200 mg Aspirin (Aspirin 81 Mg Chewable Tablet) 81 mg PO DAILY [facility] Last Admin: 11/21/22 08:01 Dose: 81 mg Baclofen (Baclofen 10 Mg Tab) 10 mg PO BID [facility] Last Admin: 11/21/22 08:03 Dose: 10 mg Enoxaparin Sodium (Enoxaparin 30 Mg/0.3 Ml) 30 mg SQ DAILY 5 PM [facility] Last Admin: 11/20/22 18:06 Dose: 30 mg Gabapentin (Gabapentin 300 Mg Cap) 300 mg PO DAILY [facility] Last Admin: 11/21/22 08:02 Dose: 300 mg Hydromorphone HCl (Hydromorphone Hcl 0.5 Mg/0.5 Ml Inj) 0.5 mg IV Q4H PRN PRN Reason: Pain scale 5-7 (Moderate) Last Admin: 11/20/22 13:27 Dose: 0.5 mg Sodium Chloride (Sodium Chloride) 250 mls @ 999 mls/hr IV Q15M PRN PRN Reason: HYPOTENSION Last Admin: 11/12/22 19:55 Dose: 250 mls Meropenem 1,000 mg/ Sodium (Chloride) 100 mls @ 200 mls/hr IV Q8HR [facility] Last Admin: 11/21/22 08:00 Dose: 100 mls Ipratropium [place] (Ipratropium Brom 0.5mg/2.5ml) 0.5 mg NEB [id number] [facility] Last Admin: 11/21/22 02:40 Dose: 0.5 mg Levalbuterol HCl (Levalbuterol 0.63 Mg/3 Ml Neb) 0.63 mg NEB Q3TANIM PRN PRN Reason: SHORTNESS OF BREATH Last Admin: 11/20/22 01:55 Dose: 0.63 mg Lorazepam (Lorazepam 0.5 Mg Tablet) 0.5 mg PO Q2HR PRN PRN Reason: ANXIETY Last Admin: 11/21/22 08:01 Dose: 0.5 mg Metoprolol Tartrate (Metoprolol Tar 25 Mg Tab) 25 mg PO BID [facility] Last Admin: 11/21/22 08:01 Dose: 25 mg Nitrofurantoin Macrocrystals (Nitrofuran Macro 50 Mg Cap) 100 mg PO QID [facility]; Protocol Last Admin: 11/21/22 08:03 Dose: 100 mg Ondansetron HCl (Ondansetron 4 Mg/2 Ml Vial) 4 mg IV Q6HP PRN PRN Reason: NAUSEA / VOMITING Ondansetron HCl (Ondansetron 4 Mg/2 Ml Vial) 4 mg IV Q4H PRN PRN Reason: NAUSEA / VOMITING Pantoprazole Sodium (Pantoprazole 40mg Tablet) 40 mg PO BIDAC [facility]; Protocol Last Admin: 11/21/22 08:01 Dose: 40 mg Senna (Senosides 8.6 Mg Tab) 8.6 mg PO DAILY [facility] Last Admin: 11/21/22 08:01 Dose: 8.6 mg Sodium Chloride (Sodium Chloride 0.9% 10ml Inj) 10 ml IV UD PRN PRN Reason: Diluant Sodium Chloride (Flush Normal Saline 10 Ml) 10 ml IV BID [facility] Last Admin: 11/21/22 08:02 Dose: 10 ml Tamsulosin HCl (Tamsulosin 0.4 Mg Sr Cap) 0.4 mg PO DAILY [facility] Last Admin: 11/21/22 08:01 Dose: 0.4 mg Microbiology Data (last 24 hrs): Microbiology 11/12/22 13:25 Blood - Blood Aerobic Blood Culture - Final Serratia Marcescens 11/12/22 13:25 Blood - Blood Blood Culture Gram Stain - Final 11/12/22 13:25 Blood - Blood Anaerobic Blood Culture - Final No growth in 5 days. Assessment And Plan - Current Problems (Diagnosis) (1) Bacteremia Current Visit: Yes Status: Acute Plan: Cultures: 11/13 BC: Negative 11/13 Sputum: GNR - Serratia Marcsesens (MDR), susceptible to meropenem and Pseudomonas Aeruginosa, possible colonization (patient vital signs table, afebrile) 11/12 BC: GNR - Serratia Marcsesens (MDR) Antibiotics: On IV Meropenem from 11/13 Recommendation: Continue IV Meropenem for total of 14 days from 11/13 (repeated BC negative) (2) UTI (urinary tract infection) Current Visit: Yes Status: Acute Plan: Cultures: 11/12 UC: Pseudomonas Aeruginosa (MDR), susceptible to Tobramycin and Enterococcus Faecium (MDR), susceptible to Gentamicin and intermittent to Nitrofurantoin Antibiotics: Current on PO Nitrofurantoin, 11/17 Recommendations: ID agrees with primary team's antibiotic selection PO Nitrofurantoin Can use acetic acid solution for bladder irrigation when patient spikes fever - Plan - Gram-neg septicemia - Pneumonia - Severe protein calorie malnutrition - Atrial fibrillation - HTN (hypertension) - Respiratory muscle paralysis - Hypernatremia - Anemia - ALS (Amyotrophic Lateral Sclerosis) - Pancreatitis Plans for discharge pending arrangement of home health, hospice and home antibiotics ID will closely monitor the patient with signs of infection with fever and WBC trends Case has been discussed with Dr. Garcia, N Physician Review: Patient Assessed, Agree with Above Assessment and Plan
[2022-11-21] MEDS: HYDROMORPHONE HCL 0.5 MG/0.5 ML INJ IV PRN ×2 (12:06→19:58)
--- NOTE | 2022-11-21 12:29 | P.PN ---
Subjective Date of Service: 11/21/22 Primary Care Provider: Orlin Chief Complaint: Pneumonia/cystitis Patient has pseudomonas and entrococcus in the urine, Serrtia in the blood and sputum plans for discharge pending arrangement of home health, hospice and home antibiotics Review of Systems is unable to be obtained Physical Examination - Vital Signs Temperature: 97.0 F Blood Pressure: 120/95 Pulse: 122 Respirations: 17 Pulse Ox (%): 100 - Physical Exam General: Alert, In no apparent distress HEENT: Atraumatic, PERRLA, EOMI Neck: Supple, JVD not distended Respiratory: Clear to auscultation bilaterally, Normal air movement Cardiovascular: Regular rate/rhythm, Normal S1 S2 Gastrointestinal: Normal bowel sounds, No tenderness Musculoskeletal: No tenderness Integumentary: No rashes Neurological: Normal speech, Normal tone, Normal affect Lymphatics: No axilla or inguinal lymphadenopathy Assessment And Plan - Current Problems (Diagnosis) (1) Gram-neg septicemia Current Visit: Yes Status: Acute Plan: will await antibiotigram to see what antibiotics he needs 11/21 Awaiting a Advizzer to take the patient (2) Pneumonia Current Visit: Yes Status: Acute Plan: admit to the unit continue fluids and antibiotics. Will await blood cultures. consult to Dr. Beaver 11/[address] Beaver. He needs 2 weeks of meropenemn Qualifiers: Pneumonia type: due to unspecified organism Laterality: bilateral Lung location: lower lobe of lung Qualified Code(s): J18.9 - Pneumonia, unspecified organism (3) Atrial fibrillation Current Visit: No Status: Acute Plan: Patient is stable. Will continue amiodarone and metoprolol Qualifiers: Atrial fibrillation type: paroxysmal Qualified Code(s): I48.0 - Paroxysmal atrial fibrillation (4) HTN (hypertension) Current Visit: No Status: Chronic Plan: He is currently hypotensive. Will hold the diltiazem Qualifiers: Hypertension type: primary hypertension Qualified Code(s): I10 - Essential (primary) hypertension (5) Respiratory muscle paralysis Current Visit: No Status: Chronic Plan: continue chronic vent management (6) Hypernatremia Current Visit: Yes Status: Acute Plan: improving with fluids. Dr. Wheeler is following (7) Anemia Current Visit: No Status: Acute Plan: 11/18 hb is back up to 9. Will keep him on protonix. He is always going to be a high risk for gi bleed. May get an outpatient work up Qualifiers: Anemia type: unspecified type Qualified Code(s): D64.9 - Anemia, unspecified (8) ALS (amyotrophic lateral sclerosis) Current Visit: No Status: Chronic Plan: patient is at his baseline - Plan Plans for discharge when his home health is arranged. Discharge Plan: Home Plan to discharge in: 24 Hours - Code Status/Comfort Care Code Status Assessed: No Physician Review: Patient Assessed, Agree with Above Assessment and Plan Critical Care: Yes Time Spent Managing PTS Care (In Minutes): 20
[2022-11-21] MEDS: ENOXAPARIN 30 MG/0.3 ML SQ SCH (17:01)
[2022-11-22] MEDS: Meropenem 1,000 MG in NA CHLORIDE 0.9% 100 ML IV SCH ×3 (01:00→16:11)
[2022-11-22] MEDS: HYDROMORPHONE HCL 0.5 MG/0.5 ML INJ IV PRN ×2 (01:46→06:45)
[2022-11-22] MEDS: LORAZEPAM 0.5 MG TABLET PO PRN ×3 (01:46→22:00)
[2022-11-22] MEDS: IPRATROPIUM BROM 0.5MG/2.5ML NEB SCH ×4 (02:00→19:30)
--- NOTE | 2022-11-22 08:07 | P.PN ---
Subjective Date of Service: 11/22/22 Primary Care Provider: Orlin Chief Complaint: Pneumonia/cystitis Patient has pseudomonas and entrococcus in the urine, Serrtia in the blood and sputum plans for discharge pending arrangement of home health, hospice and home antibiotics Review of Systems 10-point ROS is otherwise unremarkable Physical Examination - Vital Signs Temperature: 97.4 F Blood Pressure: 98/64 Pulse: 125 Respirations: 20 Pulse Ox (%): 100 - Physical Exam General: Alert, In no apparent distress HEENT: Atraumatic, PERRLA, EOMI Neck: Supple, JVD not distended Respiratory: Clear to auscultation bilaterally, Normal air movement Cardiovascular: Regular rate/rhythm, Normal S1 S2 Gastrointestinal: Normal bowel sounds, No tenderness Musculoskeletal: No tenderness Integumentary: No rashes Neurological: Normal speech, Normal tone, Normal affect Lymphatics: No axilla or inguinal lymphadenopathy Assessment And Plan - Current Problems (Diagnosis) (1) Gram-neg septicemia Current Visit: Yes Status: Acute Plan: will await antibiotigram to see what antibiotics he needs 11/22 Awaiting a [employer] to take the patient. He needs antibiotics till 11/27 (2) Pneumonia Current Visit: Yes Status: Acute Plan: admit to the unit continue fluids and antibiotics. Will await blood cultures. consult to Dr. Beaver 11/[address] Beaver. He needs 2 weeks of meropenemn Qualifiers: Pneumonia type: due to unspecified organism Laterality: bilateral Lung location: lower lobe of lung Qualified Code(s): J18.9 - Pneumonia, unspecified organism (3) Atrial fibrillation Current Visit: No Status: Acute Plan: Patient is stable. Will continue amiodarone and metoprolol Qualifiers: Atrial fibrillation type: paroxysmal Qualified Code(s): I48.0 - Paroxysmal atrial fibrillation (4) HTN (hypertension) Current Visit: No Status: Chronic Plan: He is currently hypotensive. Will hold the diltiazem Qualifiers: Hypertension type: primary hypertension Qualified Code(s): I10 - Essential (primary) hypertension (5) Respiratory muscle paralysis Current Visit: No Status: Chronic Plan: continue chronic vent management (6) Hypernatremia Current Visit: Yes Status: Acute Plan: improving with fluids. Dr. Wheeler is following (7) Anemia Current Visit: No Status: Acute Plan: 11/18 hb is back up to 9. Will keep him on protonix. He is always going to be a high risk for gi bleed. May get an outpatient work up Qualifiers: Anemia type: unspecified type Qualified Code(s): D64.9 - Anemia, unspecified (8) ALS (amyotrophic lateral sclerosis) Current Visit: No Status: Chronic Plan: patient is at his baseline - Plan Plans for discharge when his home health is arranged. Discharge Plan: Home Plan to discharge in: 24 Hours - Code Status/Comfort Care Code Status Assessed: No Physician Review: Patient Assessed, Agree with Above Assessment and Plan Critical Care: No Time Spent Managing PTS Care (In Minutes): 20
--- NOTE | 2022-11-22 08:25 | P.PN ---
Subjective Date of Service: 11/22/22 Primary Care Provider: Orlin Chief Complaint: Pneumonia/cystitis Patient lying in bed watching TV with no major events upon examination Physical Examination - Vital Signs Temperature: 97.4 F Blood Pressure: 98/64 Pulse: 125 Respirations: 20 Pulse Ox (%): 100 - Physical Exam General: Alert, In no apparent distress Respiratory: Clear to auscultation bilaterally, Other (trach dependent) Cardiovascular: Edema (2+ UE), Irregular heart rate/rhythm (a-fib) Capillary refill: >2 Seconds Gastrointestinal: Normal bowel sounds, Other (PEG in place) Musculoskeletal: Swelling (2+ UEs), Other (ALS) Integumentary: Tenderness/swelling (2+ UEs) Neurological: Other (ACS) Urinary: Sanchez catheter (yellow and clear) - Studies active medications Acetaminophen (Acetaminophen 325 Mg Tablet) 650 mg PO Q6H PRN PRN Reason: TEMP > 100.4' F Last Admin: 11/21/22 17:01 Dose: 650 mg Albuterol Sulfate (Albuterol 2.5 Mg/3 Ml Neb Opal) 2.5 mg NEB [id number] PRN PRN Reason: WHEEZING Last Admin: 11/15/22 19:35 Dose: 2.5 mg Amiodarone HCl (Amiodarone Hcl 200 Mg Tab) 200 mg FT BID [facility] Last Admin: 11/21/22 19:41 Dose: 200 mg Aspirin (Aspirin 81 Mg Chewable Tablet) 81 mg PO DAILY [facility] Last Admin: 11/21/22 08:01 Dose: 81 mg Baclofen (Baclofen 10 Mg Tab) 10 mg PO BID [facility] Last Admin: 11/21/22 19:41 Dose: 10 mg Enoxaparin Sodium (Enoxaparin 30 Mg/0.3 Ml) 30 mg SQ DAILY 5 PM [facility] Last Admin: 11/21/22 17:01 Dose: 30 mg Gabapentin (Gabapentin 300 Mg Cap) 300 mg PO DAILY [facility] Last Admin: 11/21/22 08:02 Dose: 300 mg Hydromorphone HCl (Hydromorphone Hcl 0.5 Mg/0.5 Ml Inj) 0.5 mg IV Q4H PRN PRN Reason: Pain scale 5-7 (Moderate) Last Admin: 11/22/22 06:45 Dose: 0.5 mg Sodium Chloride (Sodium Chloride) 250 mls @ 999 mls/hr IV Q15M PRN PRN Reason: HYPOTENSION Last Admin: 11/12/22 19:55 Dose: 250 mls Meropenem 1,000 mg/ Sodium (Chloride) 100 mls @ 200 mls/hr IV Q8HR [facility] Last Admin: 11/22/22 01:00 Dose: 100 mls Ipratropium [place] (Ipratropium Brom 0.5mg/2.5ml) 0.5 mg NEB [id number] [facility] Last Admin: 11/22/22 02:00 Dose: 0.5 mg Levalbuterol HCl (Levalbuterol 0.63 Mg/3 Ml Neb) 0.63 mg NEB [id number] PRN PRN Reason: SHORTNESS OF BREATH Last Admin: 11/20/22 01:55 Dose: 0.63 mg Lorazepam (Lorazepam 0.5 Mg Tablet) 0.5 mg PO Q2HR PRN PRN Reason: ANXIETY Last Admin: 11/22/22 01:46 Dose: 0.5 mg Metoprolol Tartrate (Metoprolol Tar 25 Mg Tab) 25 mg PO BID [facility] Last Admin: 11/21/22 19:41 Dose: 25 mg Nitrofurantoin Macrocrystals (Nitrofuran Macro 50 Mg Cap) 100 mg PO QID [facility]; Protocol Last Admin: 11/21/22 19:42 Dose: 100 mg Ondansetron HCl (Ondansetron 4 Mg/2 Ml Vial) 4 mg IV Q6HP PRN PRN Reason: NAUSEA / VOMITING Ondansetron HCl (Ondansetron 4 Mg/2 Ml Vial) 4 mg IV Q4H PRN PRN Reason: NAUSEA / VOMITING Pantoprazole Sodium (Pantoprazole 40mg Tablet) 40 mg PO BIDAC [facility]; Protocol Last Admin: 11/21/22 17:02 Dose: 40 mg Senna (Senosides 8.6 Mg Tab) 8.6 mg PO DAILY [facility] Last Admin: 11/21/22 08:01 Dose: 8.6 mg Sodium Chloride (Sodium Chloride 0.9% 10ml Inj) 10 ml IV UD PRN PRN Reason: Diluant Sodium Chloride (Flush Normal Saline 10 Ml) 10 ml IV BID [facility] Last Admin: 11/21/22 19:42 Dose: 10 ml Tamsulosin HCl (Tamsulosin 0.4 Mg Sr Cap) 0.4 mg PO DAILY [facility] Last Admin: 11/21/22 08:01 Dose: 0.4 mg Microbiology Data (last 24 hrs): Microbiology 11/12/22 13:25 Blood - Blood Aerobic Blood Culture - Final Serratia Marcescens 11/12/22 13:25 Blood - Blood Blood Culture Gram Stain - Final 11/12/22 13:25 Blood - Blood Anaerobic Blood Culture - Final No growth in 5 days. Assessment And Plan - Current Problems (Diagnosis) (1) Bacteremia Current Visit: Yes Status: Acute Plan: Cultures: 11/13 BC: Negative 11/13 Sputum: GNR - Serratia Marcsesens (MDR), susceptible to meropenem and Pseudomonas Aeruginosa, possible colonization (patient vital signs table, afebrile) 11/12 BC: GNR - Serratia Marcsesens (MDR) Antibiotics: On IV Meropenem from 11/13 Recommendation: Continue IV Meropenem for total of 14 days from 11/13 (repeated BC negative) (2) UTI (urinary tract infection) Current Visit: Yes Status: Acute Plan: Cultures: 11/12 UC: Pseudomonas Aeruginosa (MDR), susceptible to Tobramycin and Enterococcus Faecium (MDR), susceptible to Gentamicin and intermittent to Nitrofurantoin Antibiotics: Current on PO Nitrofurantoin, 11/17 Recommendations: ID agrees with primary team's antibiotic selection PO Nitrofurantoin Can use acetic acid solution for bladder irrigation when patient spikes fever - Plan - Gram-neg septicemia - Pneumonia - Severe protein calorie malnutrition - Atrial fibrillation - HTN (hypertension) - Respiratory muscle paralysis - Hypernatremia - Anemia - ALS (Amyotrophic Lateral Sclerosis) - Pancreatitis Plans for discharge pending arrangement of home health, hospice and home antibiotics ID will closely monitor the patient with signs of infection with fever and WBC trends Case has been discussed with Dr. Garcia, N Physician Review: Patient Assessed, Agree with Above Assessment and Plan
[2022-11-22] MEDS: PANTOPRAZOLE 40MG TABLET PO SCH ×2 (08:31→16:11)
[2022-11-22] MEDS: METOPROLOL TAR 25 MG TAB PO SCH ×2 (08:31→21:00)
[2022-11-22] MEDS: AMIODARONE HCL 200 MG TAB FT SCH ×2 (08:32→22:37)
[2022-11-22] MEDS: ASPIRIN 81 MG CHEWABLE TABLET PO SCH (08:32)
[2022-11-22] MEDS: TAMSULOSIN 0.4 MG SR CAP PO SCH (08:32)
[2022-11-22] MEDS: GABAPENTIN 300 MG CAP PO SCH (08:32)
[2022-11-22] MEDS: BACLOFEN 10 MG TAB PO SCH ×2 (08:32→22:38)
[2022-11-22] MEDS: JEVITY 1.2 CAL LIQUID 1,000 ML BOT FT SCH ×3 (08:33→21:00)
[2022-11-22] MEDS: SENOSIDES 8.6 MG TAB PO SCH (09:00)
[2022-11-22] MEDS: NITROFURAN MACRO 50 MG CAP PO SCH ×4 (09:08→21:00)
[2022-11-22] MEDS ORDERED: Meropenem 1000 MG/VIAL IV ONE (09:11)
[2022-11-22] MEDS: ACETAMINOPHEN 325 MG TABLET PO PRN ×2 (12:18→18:30)
[2022-11-22] MEDS: ENOXAPARIN 30 MG/0.3 ML SQ SCH (16:11)
[2022-11-22] MEDS: LEVALBUTEROL 0.63 MG/3 ML NEB NEB PRN (19:30)
--- NOTE | 2022-11-22 22:55 | P.PN ---
Date of Service: 11/22/22 Vital Signs Temp Pulse Resp BP Pulse Ox 97.9 F 127 H 20 125/79 100 11/22/22 20:00 11/22/22 22:00 11/22/22 22:00 11/22/22 22:00 11/22/22 22:00 Medications Acetaminophen (Acetaminophen 325 Mg Tablet) 650 mg PO Q6H PRN PRN Reason: TEMP > 100.4' F Last Admin: 11/22/22 18:30 Dose: 650 mg Albuterol Sulfate (Albuterol 2.5 Mg/3 Ml Neb Opal) 2.5 mg NEB [id number] PRN PRN Reason: WHEEZING Last Admin: 11/15/22 19:35 Dose: 2.5 mg Amiodarone HCl (Amiodarone Hcl 200 Mg Tab) 200 mg FT BID [facility] Last Admin: 11/22/22 22:37 Dose: 200 mg Aspirin (Aspirin 81 Mg Chewable Tablet) 81 mg PO DAILY [facility] Last Admin: 11/22/22 08:32 Dose: 81 mg Baclofen (Baclofen 10 Mg Tab) 10 mg PO BID [facility] Last Admin: 11/22/22 22:38 Dose: 10 mg Enoxaparin Sodium (Enoxaparin 30 Mg/0.3 Ml) 30 mg SQ DAILY 5 PM [facility] Last Admin: 11/22/22 16:11 Dose: 30 mg Gabapentin (Gabapentin 300 Mg Cap) 300 mg PO DAILY [facility] Last Admin: 11/22/22 08:32 Dose: 300 mg Sodium Chloride (Sodium Chloride) 250 mls @ 999 mls/hr IV Q15M PRN PRN Reason: HYPOTENSION Last Admin: 11/12/22 19:55 Dose: 250 mls Meropenem 1,000 mg/ Sodium (Chloride) 100 mls @ 200 mls/hr IV Q8HR [facility] Last Admin: 11/22/22 16:11 Dose: 100 mls Ipratropium [place] (Ipratropium Brom 0.5mg/2.5ml) 0.5 mg NEB [id number] [facility] Last Admin: 11/22/22 19:30 Dose: 0.5 mg Levalbuterol HCl (Levalbuterol 0.63 Mg/3 Ml Neb) 0.63 mg NEB [id number] PRN PRN Reason: SHORTNESS OF BREATH Last Admin: 11/22/22 19:30 Dose: 0.63 mg Lorazepam (Lorazepam 0.5 Mg Tablet) 0.5 mg PO Q2HR PRN PRN Reason: ANXIETY Last Admin: 11/22/22 22:00 Dose: 0.5 mg Metoprolol Tartrate (Metoprolol Tar 25 Mg Tab) 25 mg PO BID [facility] Last Admin: 11/22/22 21:00 Dose: 25 mg Nitrofurantoin Macrocrystals (Nitrofuran Macro 50 Mg Cap) 100 mg PO QID [facility]; Protocol Last Admin: 11/22/22 16:12 Dose: 100 mg Ondansetron HCl (Ondansetron 4 Mg/2 Ml Vial) 4 mg IV Q6HP PRN PRN Reason: NAUSEA / VOMITING Ondansetron HCl (Ondansetron 4 Mg/2 Ml Vial) 4 mg IV Q4H PRN PRN Reason: NAUSEA / VOMITING Pantoprazole Sodium (Pantoprazole 40mg Tablet) 40 mg PO BIDAC [facility]; Protocol Last Admin: 11/22/22 16:11 Dose: 40 mg Senna (Senosides 8.6 Mg Tab) 8.6 mg PO DAILY [facility] Last Admin: 11/22/22 09:00 Dose: Not Given Sodium Chloride (Sodium Chloride 0.9% 10ml Inj) 10 ml IV UD PRN PRN Reason: Diluant Sodium Chloride (Flush Normal Saline 10 Ml) 10 ml IV BID [facility] Last Admin: 11/22/22 09:09 Dose: 10 ml Tamsulosin HCl (Tamsulosin 0.4 Mg Sr Cap) 0.4 mg PO DAILY [facility] Last Admin: 11/22/22 08:32 Dose: Not Given Microbiology Results 11/12/22 13:25 Blood - Blood Aerobic Blood Culture - Final Serratia Marcescens 11/12/22 13:25 Blood - Blood Blood Culture Gram Stain - Final 11/12/22 13:25 Blood - Blood Anaerobic Blood Culture - Final No growth in 5 days. Assessment/ Plan: Nephrology No dyspnea No chest pain No new complaints Fatigue and weakness No acute events overnight Vitals, medications, blood work and imaging reviewed in the chart General: In no apparent distress, Cooperative HEENT: Atraumatic Neck: Supple Respiratory: CTA Anteriorly Cardiovascular: No edema, Regular rate/rhythm Gastrointestinal: Non-distended Musculoskeletal: No clubbing, No contractures Integumentary: No rashes, No cyanosis Neurological: Abnormal speech Blood work reviewed in the chart. Imagings Data: WelVU-bkg EXAM DESCRIPTION: Dion Single View11/12/2022 1:05 pm CLINICAL HISTORY: Shortness of breath COMPARISON: September 2022 FINDINGS: Moderate to marked bilateral pulmonary opacities. The heart is normal size. Tracheostomy tube in place IMPRESSION: Moderate to marked bilateral pulmonary opacities may indicate pneumonia. EXAM DESCRIPTION: RAD - ENTEROSTOMY TUBE CHECK W/CONTR - 11/13/2022 9:53 am CLINICAL HISTORY: G tube placement confirmation COMPARISON: No comparisons FINDINGS: There were 2 KUB images obtained prior to and subsequent to retrograde injection of contrast via NG tube. The initial image shows G-tube in place in the midline abdomen. Stomach is not dilated. Air is seen in nondilated small bowel. Following retrograde injection, contrast is seen within the contracted gastric lumen. A small amount of contrast has extended into the duodenal C-loop. Focus of contrast along the right lateral margin of the G-tube does not clearly demonstrate gastric mucosal folds. Small amount of extraluminal contrast cannot be excluded. IMPRESSION: Questionable extraluminal contrast along the right lateral margin of the G-tube. CT abdomen examination without oral or IV contrast could be performed for more definitive assessment. LEFT VENTRICULAR WALL MOTION: ANTERIOR/ APICAL AKINESIS DOPPLER/COLOR FLOW: SEE BELOW COMMENTS: SEVERELY DEPRESSED LEFT VENTRICULAR EJECTION FRACTION 20-25%. ANTERIOR/ WIL SEPTAL/ APICAL AKINESIS. MODERATE MITRAL REGURGITATION. Conclusions/Impression: Proteinuria -No NSAIDs Hyponatremia, improving -Maintain nutrition Hypokalemia -Replete potassium prn -Maintain nutrition HypoPO4 -Replete phosphorus prn -Maintain nutrition Chronic Hypotension -IV Albumin prn Systolic CHF, chronic LVEF 20-25% Pulmonary edema -Daily weight Moderate to severe malnutrition with debility -Continue tube feeds Anemia in chronic illness Iron Deficiency 15% -Monitor H&H -Transfuse PRBCs prn Multifocal PNA Aspiration PNA -Trach status -Continue ventilatory support -Continue abx -ID following
[2022-11-23] MEDS: LEVALBUTEROL 0.63 MG/3 ML NEB NEB PRN (01:00)
[2022-11-23] MEDS: IPRATROPIUM BROM 0.5MG/2.5ML NEB SCH ×4 (01:00→20:00)
[2022-11-23] MEDS: Meropenem 1,000 MG in NA CHLORIDE 0.9% 100 ML IV SCH ×3 (01:00→16:35)
[2022-11-23] MEDS: LORAZEPAM 0.5 MG TABLET PO PRN ×4 (02:22→23:45)
[2022-11-23 05:10] LABS: Hematocrit 27.1 % (39.6-49.0); Lymphocytes % 5.6 % (15.3-44.8); MCV 88.6 fL (80-100); MPV 7.5 fL (7.6-11.3); RBC Red Blood Cell Count 3.06 M/uL (4.33-5.43)
[2022-11-23 05:31] LABS: Albumin 1.8 g/dL (3.4-5.0); Bilirubin Total 0.7 mg/dL (0.2-1.0); Magnesium 1.8 mg/dL (1.6-2.4); Potassium 4.1 mmol/L (3.5-5.1); Protein, Total 6.3 g/dL (6.4-8.2); Uric Acid 3.9 mg/dL (3.5-7.2)
--- NOTE | 2022-11-23 07:59 | P.PN ---
Subjective Date of Service: 11/23/22 Primary Care Provider: Orlin Chief Complaint: Pneumonia/cystitis Patient has pseudomonas and entrococcus in the urine, Serrtia in the blood and sputum plans for discharge pending arrangement of home health, and home antibiotics Review of Systems 10-point ROS is otherwise unremarkable Physical Examination - Vital Signs Temperature: 97.8 F Blood Pressure: 115/84 Pulse: 126 Respirations: 20 Pulse Ox (%): 100 - Physical Exam General: Alert, In no apparent distress HEENT: Atraumatic, PERRLA, EOMI Neck: Supple, JVD not distended Respiratory: Clear to auscultation bilaterally, Normal air movement Cardiovascular: Regular rate/rhythm, Normal S1 S2 Gastrointestinal: Normal bowel sounds, No tenderness Musculoskeletal: No tenderness Integumentary: No rashes Neurological: Normal speech, Normal tone, Normal affect Lymphatics: No axilla or inguinal lymphadenopathy Assessment And Plan - Current Problems (Diagnosis) (1) Gram-neg septicemia Current Visit: Yes Status: Acute Plan: will await antibiotigram to see what antibiotics he needs 11/23 hospice unlikely. will try for home health on this patient (2) Pneumonia Current Visit: Yes Status: Acute Plan: admit to the unit continue fluids and antibiotics. Will await blood cultures. consult to Dr. Beaver 11/[address] Beaver. He needs 2 weeks of meropenemn Qualifiers: Pneumonia type: due to unspecified organism Laterality: bilateral Lung location: lower lobe of lung Qualified Code(s): J18.9 - Pneumonia, unspecified organism (3) Atrial fibrillation Current Visit: No Status: Acute Plan: Patient is stable. Will continue amiodarone and metoprolol Qualifiers: Atrial fibrillation type: paroxysmal Qualified Code(s): I48.0 - Paroxysmal atrial fibrillation (4) HTN (hypertension) Current Visit: No Status: Chronic Plan: He is currently hypotensive. Will hold the diltiazem Qualifiers: Hypertension type: primary hypertension Qualified Code(s): I10 - Essential (primary) hypertension (5) Respiratory muscle paralysis Current Visit: No Status: Chronic Plan: continue chronic vent management (6) Hypernatremia Current Visit: Yes Status: Acute Plan: improving with fluids. Dr. Wheeler is following (7) Anemia Current Visit: No Status: Acute Plan: 11/18 hb is back up to 9. Will keep him on protonix. He is always going to be a high risk for gi bleed. May get an outpatient work up Qualifiers: Anemia type: unspecified type Qualified Code(s): D64.9 - Anemia, unspecified (8) ALS (amyotrophic lateral sclerosis) Current Visit: No Status: Chronic Plan: patient is at his baseline - Plan Plans for discharge when his home health is arranged. Discharge Plan: Home Plan to discharge in: 24 Hours - Code Status/Comfort Care Code Status Assessed: No Physician Review: Patient Assessed, Agree with Above Assessment and Plan Critical Care: No Time Spent Managing PTS Care (In Minutes): 20
--- NOTE | 2022-11-23 08:08 | P.PN ---
Subjective Date of Service: 11/23/22 Primary Care Provider: Orlin Chief Complaint: Pneumonia/cystitis Patient lying in bed watching TV with no major events upon examination Physical Examination - Vital Signs Temperature: 97.8 F Blood Pressure: 115/84 Pulse: 126 Respirations: 20 Pulse Ox (%): 100 - Physical Exam General: Alert, In no apparent distress Respiratory: Clear to auscultation bilaterally, Other (trach dependent) Cardiovascular: Edema (2+ UE), Irregular heart rate/rhythm (a-fib) Capillary refill: >2 Seconds Gastrointestinal: Normal bowel sounds, Other (PEG in place) Musculoskeletal: Swelling (2+ UEs), Other (ALS) Integumentary: Tenderness/swelling (2+ UEs) Neurological: Other (ALS) Urinary: Sanchez catheter (yellow and clear) - Studies active medications Acetaminophen (Acetaminophen 325 Mg Tablet) 650 mg PO Q6H PRN PRN Reason: TEMP > 100.4' F Last Admin: 11/22/22 18:30 Dose: 650 mg Albuterol Sulfate (Albuterol 2.5 Mg/3 Ml Neb Opal) 2.5 mg NEB [id number] PRN PRN Reason: WHEEZING Last Admin: 11/15/22 19:35 Dose: 2.5 mg Amiodarone HCl (Amiodarone Hcl 200 Mg Tab) 200 mg FT BID [facility] Last Admin: 11/22/22 22:37 Dose: 200 mg Aspirin (Aspirin 81 Mg Chewable Tablet) 81 mg PO DAILY [facility] Last Admin: 11/22/22 08:32 Dose: 81 mg Baclofen (Baclofen 10 Mg Tab) 10 mg PO BID [facility] Last Admin: 11/22/22 22:38 Dose: 10 mg Enoxaparin Sodium (Enoxaparin 30 Mg/0.3 Ml) 30 mg SQ DAILY 5 PM [facility] Last Admin: 11/22/22 16:11 Dose: 30 mg Gabapentin (Gabapentin 300 Mg Cap) 300 mg PO DAILY [facility] Last Admin: 11/22/22 08:32 Dose: 300 mg Sodium Chloride (Sodium Chloride) 250 mls @ 999 mls/hr IV Q15M PRN PRN Reason: HYPOTENSION Last Admin: 11/12/22 19:55 Dose: 250 mls Meropenem 1,000 mg/ Sodium (Chloride) 100 mls @ 200 mls/hr IV Q8HR [facility] Last Admin: 11/23/22 01:00 Dose: 100 mls Ipratropium [place] (Ipratropium Brom 0.5mg/2.5ml) 0.5 mg NEB [id number] [facility] Last Admin: 11/23/22 01:00 Dose: 0.5 mg Levalbuterol HCl (Levalbuterol 0.63 Mg/3 Ml Neb) 0.63 mg NEB [id number] PRN PRN Reason: SHORTNESS OF BREATH Last Admin: 11/23/22 01:00 Dose: 0.63 mg Lorazepam (Lorazepam 0.5 Mg Tablet) 0.5 mg PO Q2HP PRN PRN Reason: ANXIETY Metoprolol Tartrate (Metoprolol Tar 25 Mg Tab) 25 mg PO BID [facility] Last Admin: 11/22/22 21:00 Dose: 25 mg Nitrofurantoin Macrocrystals (Nitrofuran Macro 50 Mg Cap) 100 mg PO QID [facility]; Protocol Last Admin: 11/22/22 21:00 Dose: 100 mg Ondansetron HCl (Ondansetron 4 Mg/2 Ml Vial) 4 mg IV Q6HP PRN PRN Reason: NAUSEA / VOMITING Ondansetron HCl (Ondansetron 4 Mg/2 Ml Vial) 4 mg IV Q4H PRN PRN Reason: NAUSEA / VOMITING Pantoprazole Sodium (Pantoprazole 40mg Tablet) 40 mg PO BIDAC [facility]; Protocol Last Admin: 11/22/22 16:11 Dose: 40 mg Senna (Senosides 8.6 Mg Tab) 8.6 mg PO DAILY [facility] Last Admin: 11/22/22 09:00 Dose: Not Given Sodium Chloride (Sodium Chloride 0.9% 10ml Inj) 10 ml IV UD PRN PRN Reason: Diluant Sodium Chloride (Flush Normal Saline 10 Ml) 10 ml IV BID [facility] Last Admin: 11/22/22 09:09 Dose: 10 ml Tamsulosin HCl (Tamsulosin 0.4 Mg Sr Cap) 0.4 mg PO DAILY [facility] Last Admin: 11/22/22 08:32 Dose: Not Given Microbiology Data (last 24 hrs): Microbiology 11/12/22 13:25 Blood - Blood Aerobic Blood Culture - Final Serratia Marcescens 11/12/22 13:25 Blood - Blood Blood Culture Gram Stain - Final 11/12/22 13:25 Blood - Blood Anaerobic Blood Culture - Final No growth in 5 days. Assessment And Plan - Current Problems (Diagnosis) (1) Bacteremia Plan: Cultures: 11/13 BC: Negative 11/13 Sputum: GNR - Serratia Marcsesens (MDR), susceptible to meropenem and Pseudomonas Aeruginosa, possible colonization (patient vital signs table, afebrile) 11/12 BC: GNR - Serratia Marcsesens (MDR) Antibiotics: On IV Meropenem from 11/13 Recommendation: Continue IV Meropenem for total of 14 days from 11/13 (repeated BC negative) (2) UTI (urinary tract infection) Plan: Cultures: 11/12 UC: Pseudomonas Aeruginosa (MDR), susceptible to Tobramycin and Enterococcus Faecium (MDR), susceptible to Gentamicin and intermittent to Nitrofurantoin Antibiotics: Current on PO Nitrofurantoin, 11/17 Recommendations: ID agrees with primary team's antibiotic selection PO Nitrofurantoin Can use acetic acid solution for bladder irrigation when patient spikes fever - Plan - Gram-neg septicemia - Pneumonia - Severe protein calorie malnutrition - Atrial fibrillation - HTN (hypertension) - Respiratory muscle paralysis - Hypernatremia - Anemia - ALS (Amyotrophic Lateral Sclerosis) - Pancreatitis Plans for discharge pending arrangement of home health, hospice and home antibiotics ID will closely monitor the patient with signs of infection with fever and WBC trends Case has been discussed with Dr. Garcia N Physician Review: Patient Assessed, Agree with Above Assessment and Plan
[2022-11-23] MEDS: AMIODARONE HCL 200 MG TAB FT SCH ×2 (08:13→20:01)
[2022-11-23] MEDS: PANTOPRAZOLE 40MG TABLET PO SCH ×2 (08:13→16:32)
[2022-11-23] MEDS: NITROFURAN MACRO 50 MG CAP PO SCH ×4 (08:13→20:04)
[2022-11-23] MEDS: GABAPENTIN 300 MG CAP PO SCH (08:13)
[2022-11-23] MEDS: ASPIRIN 81 MG CHEWABLE TABLET PO SCH (08:13)
[2022-11-23] MEDS: METOPROLOL TAR 25 MG TAB PO SCH ×2 (08:14→20:01)
[2022-11-23] MEDS: JEVITY 1.2 CAL LIQUID 1,000 ML BOT FT SCH ×3 (08:15→20:05)
[2022-11-23] MEDS: BACLOFEN 10 MG TAB PO SCH ×2 (08:15→20:04)
[2022-11-23] MEDS: ACETAMINOPHEN 325 MG TABLET PO PRN ×3 (08:35→23:45)
[2022-11-23] MEDS: TAMSULOSIN 0.4 MG SR CAP PO SCH (09:00)
[2022-11-23] MEDS: SENOSIDES 8.6 MG TAB PO SCH (13:57)
[2022-11-23] MEDS: ENOXAPARIN 30 MG/0.3 ML SQ SCH (16:32)
[2022-11-23] MEDS ORDERED: IBUPROFEN 400 MG TAB PO ONE (18:19)
[2022-11-23] MEDS: HYDROMORPHONE HCL 0.5 MG/0.5 ML INJ IV ONE ×2 (19:55→20:03)
[2022-11-24] MEDS: Meropenem 1,000 MG in NA CHLORIDE 0.9% 100 ML IV SCH ×3 (01:00→17:00)
[2022-11-24] MEDS: IPRATROPIUM BROM 0.5MG/2.5ML NEB SCH ×4 (02:35→20:20)
[2022-11-24] MEDS: ACETAMINOPHEN 325 MG TABLET PO PRN ×3 (05:55→20:45)
[2022-11-24] MEDS: LORAZEPAM 0.5 MG TABLET PO PRN ×6 (05:55→22:12)
[2022-11-24] MEDS: GABAPENTIN 300 MG CAP PO SCH (08:59)
[2022-11-24] MEDS: METOPROLOL TAR 25 MG TAB PO SCH ×2 (08:59→19:45)
[2022-11-24] MEDS: BACLOFEN 10 MG TAB PO SCH ×2 (08:59→19:45)
[2022-11-24] MEDS: PANTOPRAZOLE 40MG TABLET PO SCH ×2 (08:59→17:12)
[2022-11-24] MEDS: SENOSIDES 8.6 MG TAB PO SCH (08:59)
[2022-11-24] MEDS: ASPIRIN 81 MG CHEWABLE TABLET PO SCH (08:59)
[2022-11-24] MEDS: AMIODARONE HCL 200 MG TAB FT SCH ×2 (08:59→19:45)
[2022-11-24] MEDS: JEVITY 1.2 CAL LIQUID 1,000 ML BOT FT SCH ×3 (09:00→19:46)
[2022-11-24] MEDS: TAMSULOSIN 0.4 MG SR CAP PO SCH (09:00)
[2022-11-24] MEDS: NITROFURAN MACRO 50 MG CAP PO SCH ×4 (09:00→19:44)
--- NOTE | 2022-11-24 10:58 | P.PN ---
Subjective Date of Service: 11/24/22 Primary Care Provider: Orlin Chief Complaint: Pneumonia/cystitis Patient has pseudomonas and entrococcus in the urine, Serrtia in the blood and sputum plans for discharge pending arrangement of home vent Review of Systems 10-point ROS is otherwise unremarkable Physical Examination - Vital Signs Temperature: 96.6 F Blood Pressure: 143/71 Pulse: 89 Respirations: 20 Pulse Ox (%): 100 - Physical Exam General: Alert, In no apparent distress HEENT: Atraumatic, PERRLA, EOMI Neck: Supple, JVD not distended Respiratory: Clear to auscultation bilaterally, Normal air movement Cardiovascular: Regular rate/rhythm, Normal S1 S2 Gastrointestinal: Normal bowel sounds, No tenderness Musculoskeletal: No tenderness Integumentary: No rashes Neurological: Normal speech, Normal tone, Normal affect Lymphatics: No axilla or inguinal lymphadenopathy Assessment And Plan - Current Problems (Diagnosis) (1) Gram-neg septicemia Current Visit: Yes Status: Acute Plan: will await antibiotigram to see what antibiotics he needs 11/23 hospice unlikely. will try for home health on this patient (2) Pneumonia Current Visit: Yes Status: Acute Plan: admit to the unit continue fluids and antibiotics. Will await blood cultures. consult to Dr. Beaver 11/[address] Beaver. He needs 2 weeks of meropenemn Qualifiers: Pneumonia type: due to unspecified organism Laterality: bilateral Lung location: lower lobe of lung Qualified Code(s): J18.9 - Pneumonia, unspecified organism (3) Atrial fibrillation Current Visit: No Status: Acute Plan: Patient is stable. Will continue amiodarone and metoprolol Qualifiers: Atrial fibrillation type: paroxysmal Qualified Code(s): I48.0 - Paroxysmal atrial fibrillation (4) HTN (hypertension) Current Visit: No Status: Chronic Plan: He is currently hypotensive. Will hold the diltiazem Qualifiers: Hypertension type: primary hypertension Qualified Code(s): I10 - Essential (primary) hypertension (5) Respiratory muscle paralysis Current Visit: No Status: Chronic Plan: continue chronic vent management (6) Hypernatremia Current Visit: Yes Status: Acute Plan: improving with fluids. Dr. Wheeler is following (7) Anemia Current Visit: No Status: Acute Plan: 11/18 hb is back up to 9. Will keep him on protonix. He is always going to be a high risk for gi bleed. May get an outpatient work up Qualifiers: Anemia type: unspecified type Qualified Code(s): D64.9 - Anemia, unspecified (8) ALS (amyotrophic lateral sclerosis) Current Visit: No Status: Chronic Plan: patient is at his baseline - Plan Plans for discharge when his home health is arranged. Discharge Plan: Home Plan to discharge in: 24 Hours - Code Status/Comfort Care Code Status Assessed: No Physician Review: Patient Assessed, Agree with Above Assessment and Plan Critical Care: No Time Spent Managing PTS Care (In Minutes): 20
[2022-11-24] MEDS: ENOXAPARIN 30 MG/0.3 ML SQ SCH (17:12)
--- NOTE | 2022-11-24 18:05 | PN ---
Subjective: [place] 2 [place] [facility] [place] alert, able to communicate with signs and also by moving his mouth, but has a tracheostomy with a trach in place and is currently on a ventilator. The patient has been vent ilator dependent for a while, has been on vent at home with home health and close monitoring. Sons a re with him and 2 of the sons also by the bedside, 1 son lives with him and now supports to monitor t he patient while able to communicate and states that he would like to go back home with th e same set of prior to coming in the hospital. Physical Examination: Vitals Signs: Stable. Blood pressure 123/69, last pulse of about 60 to 70 and regular. Respiration s are comfortable. Temperature is afebrile. The patient does not seem uncomfortable with his sats a re 100%. The patient is on ventilator. Lungs: Clear anteriorly. Abdomen: Soft. Extremities: Do not reveal any edema. Heart: The patient's heart rate is irregular. Medications: In the chart and reviewed. Laboratory Data: Reviewed. Labs show WBC count improving from 23,000 about few days ago on November 14, down to 17.1 today. Hemoglobin and hematocrit of 8.9/27.1, platelet count is 453. Chemistries s how sodium to be relatively stable 132, potassium 4.1, chloride 98, bicarb is 30, BUN is 19, creatini ne is 0.43. Assessment And Plan: 1.The patient looks comfortable, stable from renal point of view. Hyponatremia seems to be stable. Overall improving. Maintain nutrition. 2.Hypokalemia, resolved. At this point, continue to monitor and maintain nutrition. 3.Hypophosphatemia. Phosphorus repleted. Patient's phosphorus is reasonable currently. 4.Chronic hypotension. At this point, blood pressure is reasonable. 5.Systolic/chronic congestive heart failure. The patient is currently stable. Continue to monitor. 6.The patient with multifocal pneumonia, on antibiotics. Discharge disposition is dependent on ventilator set up, which the [facility], but would need to get that setup. Primary team is working on it and the problem understood by the team who is trying to get him the vent set up before he can be discharged. /DAMON Voice ID: [id number] Report ID: [id number]
[2022-11-25] MEDS: Meropenem 1,000 MG in NA CHLORIDE 0.9% 100 ML IV SCH ×3 (00:10→18:34)
[2022-11-25] MEDS: LORAZEPAM 0.5 MG TABLET PO PRN ×7 (00:52→21:40)
[2022-11-25] MEDS: IPRATROPIUM BROM 0.5MG/2.5ML NEB SCH ×4 (01:50→20:35)
[2022-11-25] MEDS: ACETAMINOPHEN 325 MG TABLET PO PRN ×2 (05:39→12:03)
[2022-11-25] MEDS: SENOSIDES 8.6 MG TAB PO SCH (09:00)
[2022-11-25] MEDS: NITROFURAN MACRO 50 MG CAP PO SCH ×4 (09:22→20:31)
[2022-11-25] MEDS: Pantoprazole (granules) 40 MG/BLIST PACKET FT SCH ×2 (09:22→18:34)
[2022-11-25] MEDS: TAMSULOSIN 0.4 MG SR CAP PO SCH (09:22)
[2022-11-25] MEDS: ASPIRIN 81 MG CHEWABLE TABLET PO SCH (09:22)
[2022-11-25] MEDS: GABAPENTIN 300 MG CAP PO SCH (09:22)
[2022-11-25] MEDS: BACLOFEN 10 MG TAB PO SCH ×2 (09:23→20:31)
[2022-11-25] MEDS: METOPROLOL TAR 25 MG TAB PO SCH ×2 (09:23→20:31)
[2022-11-25] MEDS: AMIODARONE HCL 200 MG TAB FT SCH ×2 (09:23→20:31)
[2022-11-25] MEDS: JEVITY 1.2 CAL LIQUID 1,000 ML BOT FT SCH ×3 (09:24→20:31)
--- NOTE | 2022-11-25 12:33 | P.PN ---
Subjective Date of Service: 11/25/22 Primary Care Provider: Orlin Chief Complaint: Pneumonia/cystitis Patient has pseudomonas and entrococcus in the urine, Serrtia in the blood and sputum plans for discharge pending arrangement of home vent 11/25 Patient complainting of body aches and pain. Not relieved by ibuprofen, dilaudid or tylenol. Review of Systems 10-point ROS is otherwise unremarkable Physical Examination - Vital Signs Temperature: 97.2 F Blood Pressure: 105/73 Pulse: 99 Respirations: 20 Pulse Ox (%): 100 - Physical Exam General: Alert, In no apparent distress HEENT: Atraumatic, PERRLA, EOMI Neck: Supple, JVD not distended Respiratory: Clear to auscultation bilaterally, Normal air movement Cardiovascular: Regular rate/rhythm, Normal S1 S2 Gastrointestinal: Normal bowel sounds, No tenderness Musculoskeletal: No tenderness Integumentary: No rashes Neurological: Normal speech, Normal tone, Normal affect Lymphatics: No axilla or inguinal lymphadenopathy Assessment And Plan - Current Problems (Diagnosis) (1) Gram-neg septicemia Current Visit: Yes Status: Acute Plan: will await antibiotigram to see what antibiotics he needs 11/23 hospice unlikely. will try for home health on this patient (2) Pneumonia Current Visit: Yes Status: Acute Plan: admit to the unit continue fluids and antibiotics. Will await blood cultures. consult to Dr. Beaver 11/[address] Beaver. He needs 2 weeks of meropenemn Qualifiers: Pneumonia type: due to unspecified organism Laterality: bilateral Lung location: lower lobe of lung Qualified Code(s): J18.9 - Pneumonia, unspecified organism (3) Atrial fibrillation Current Visit: No Status: Acute Plan: Patient is stable. Will continue amiodarone and metoprolol Qualifiers: Atrial fibrillation type: paroxysmal Qualified Code(s): I48.0 - Paroxysmal atrial fibrillation (4) HTN (hypertension) Current Visit: No Status: Chronic Plan: He is currently hypotensive. Will hold the diltiazem Qualifiers: Hypertension type: primary hypertension Qualified Code(s): I10 - Essential (primary) hypertension (5) Respiratory muscle paralysis Current Visit: No Status: Chronic Plan: continue chronic vent management (6) Hypernatremia Current Visit: Yes Status: Acute Plan: improving with fluids. Dr. Wheeler is following (7) Anemia Current Visit: No Status: Acute Plan: 2 hb is back up to 9. Will keep him on protonix. He is always going to be a high risk for gi bleed. May get an outpatient work up Qualifiers: Anemia type: unspecified type Qualified Code(s): D64.9 - Anemia, unspecified (8) ALS (amyotrophic lateral sclerosis) Current Visit: No Status: Chronic Plan: patient is at his baseline (9) Whole body pain Current Visit: Yes Status: Acute Plan: will try oral morphine. If no relief it may be neuropathic pain. In which case we can try pregabalin or gabapentin - Plan Plans for discharge when his home health is arranged. Discharge Plan: Home Plan to discharge in: 24 Hours - Code Status/Comfort Care Code Status Assessed: No Physician Review: Patient Assessed, Agree with Above Assessment and Plan Critical Care: No Time Spent Managing PTS Care (In Minutes): 20
[2022-11-25] MEDS: MORPHINE SULF 10 MG/5 ML OSYR PO PRN ×3 (13:14→22:29)
[2022-11-25 14:04] LABS: Absolute Lymphocytes (CBC) 0.6 K/uL (0.7-4.9); Hematocrit 25.9 % (39.6-49.0); Lymphocytes % 4.5 % (15.3-44.8); MCV 88.9 fL (80-100); MPV 7.4 fL (7.6-11.3); RBC Red Blood Cell Count 2.92 M/uL (4.33-5.43)
[2022-11-25] MEDS: ENOXAPARIN 30 MG/0.3 ML SQ SCH (18:34)
[2022-11-26] MEDS ORDERED: Meropenem 1000 MG/VIAL IV ONE (00:45)
[2022-11-26] MEDS ORDERED: NA CHLORIDE 0.9% 100 ML ONE (00:50)
[2022-11-26] MEDS: Meropenem 1,000 MG in NA CHLORIDE 0.9% 100 ML IV SCH ×3 (00:54→17:11)
[2022-11-26] MEDS: LORAZEPAM 0.5 MG TABLET PO PRN ×7 (00:55→20:41)
[2022-11-26] MEDS: IPRATROPIUM BROM 0.5MG/2.5ML NEB SCH ×4 (01:15→19:50)
[2022-11-26] MEDS: MORPHINE SULF 10 MG/5 ML OSYR PO PRN ×4 (02:47→19:03)
[2022-11-26] MEDS ORDERED: LEVALBUTEROL 0.63 MG/3 ML NEB NEB PRN (07:12)
[2022-11-26] MEDS: GABAPENTIN 300 MG CAP PO SCH ×2 (07:43→09:43)
[2022-11-26] MEDS: METOPROLOL TAR 25 MG TAB PO SCH ×2 (07:43→20:42)
[2022-11-26] MEDS: SENOSIDES 8.6 MG TAB PO SCH (07:43)
[2022-11-26] MEDS: ASPIRIN 81 MG CHEWABLE TABLET PO SCH (07:44)
[2022-11-26] MEDS: TAMSULOSIN 0.4 MG SR CAP PO SCH (07:44)
[2022-11-26] MEDS: AMIODARONE HCL 200 MG TAB FT SCH ×2 (07:44→20:42)
[2022-11-26] MEDS: Pantoprazole (granules) 40 MG/BLIST PACKET FT SCH ×2 (07:47→17:11)
[2022-11-26] MEDS: NITROFURAN MACRO 50 MG CAP PO SCH ×4 (07:48→20:41)
[2022-11-26] MEDS: BACLOFEN 10 MG TAB PO SCH ×2 (07:48→20:41)
[2022-11-26] MEDS: JEVITY 1.2 CAL LIQUID 1,000 ML BOT FT SCH ×3 (07:49→20:42)
--- NOTE | 2022-11-26 07:56 | P.PN ---
Subjective Date of Service: 11/26/22 Primary Care Provider: Orlin Chief Complaint: Pneumonia/cystitis Subjective: No new changes Patient has pseudomonas and entrococcus in the urine, Serrtia in the blood and sputum plans for discharge pending arrangement of home vent 11/25 Patient complainting of body aches and pain. Not relieved by ibuprofen, dilaudid or tylenol. Review of Systems 10-point ROS is otherwise unremarkable Physical Examination - Vital Signs Temperature: 97 F Blood Pressure: 118/76 Pulse: 120 Respirations: 20 Pulse Ox (%): 98 - Physical Exam General: Alert, In no apparent distress HEENT: Atraumatic, PERRLA, EOMI Neck: Supple, JVD not distended Respiratory: Clear to auscultation bilaterally, Normal air movement Cardiovascular: Regular rate/rhythm, Normal S1 S2 Gastrointestinal: Normal bowel sounds, No tenderness Musculoskeletal: No tenderness Integumentary: No rashes Neurological: Normal speech, Normal tone, Normal affect Lymphatics: No axilla or inguinal lymphadenopathy Assessment And Plan - Current Problems (Diagnosis) (1) Gram-neg septicemia Current Visit: Yes Status: Acute Plan: will await antibiotigram to see what antibiotics he needs 11/23 hospice unlikely. will try for home health on this patient (2) Pneumonia Current Visit: Yes Status: Acute Plan: admit to the unit continue fluids and antibiotics. Will await blood cultures. consult to Dr. Beaver 11/[address] Beaver. He needs 2 weeks of meropenemn Qualifiers: Pneumonia type: due to unspecified organism Laterality: bilateral Lung location: lower lobe of lung Qualified Code(s): J18.9 - Pneumonia, unspecified organism (3) Atrial fibrillation Current Visit: No Status: Acute Plan: Patient is stable. Will continue amiodarone and metoprolol Qualifiers: Atrial fibrillation type: paroxysmal Qualified Code(s): I48.0 - Paroxysmal atrial fibrillation (4) HTN (hypertension) Current Visit: No Status: Chronic Plan: He is currently hypotensive. Will hold the diltiazem Qualifiers: Hypertension type: primary hypertension Qualified Code(s): I10 - Essential (primary) hypertension (5) Respiratory muscle paralysis Current Visit: No Status: Chronic Plan: continue chronic vent management (6) Hypernatremia Current Visit: Yes Status: Acute Plan: improving with fluids. Dr. Wheeler is following (7) Anemia Current Visit: No Status: Acute Plan: 11/18 hb is back up to 9. Will keep him on protonix. He is always going to be a high risk for gi bleed. May get an outpatient work up Qualifiers: Anemia type: unspecified type Qualified Code(s): D64.9 - Anemia, unspecified (8) ALS (amyotrophic lateral sclerosis) Current Visit: No Status: Chronic Plan: patient is at his baseline (9) Whole body pain Current Visit: Yes Status: Acute Plan: will try oral morphine. If no relief it may be neuropathic pain. In which case we can try pregabalin or gabapentin - Plan Plans for discharge when his home health is arranged. Discharge Plan: Home Plan to discharge in: 24 Hours Physician Review: Patient Assessed, Agree with Above Assessment and Plan Time Spent Managing PTS Care (In Minutes): 20
--- NOTE | 2022-11-26 08:01 | P.PN ---
Subjective Date of Service: 11/26/22 Primary Care Provider: Orlin Chief Complaint: Pneumonia/cystitis Patient lying in bed watching TV comfortably with no major events upon examination Physical Examination - Vital Signs Temperature: 97 F Blood Pressure: 118/76 Pulse: 120 Respirations: 20 Pulse Ox (%): 98 - Studies active medications Acetaminophen (Acetaminophen 325 Mg Tablet) 650 mg PO Q6H PRN PRN Reason: TEMP > 100.4' F Last Admin: 11/25/22 12:03 Dose: 650 mg Albuterol Sulfate (Albuterol 2.5 Mg/3 Ml Neb Opal) 2.5 mg NEB [id number] PRN PRN Reason: WHEEZING Last Admin: 11/15/22 19:35 Dose: 2.5 mg Amiodarone HCl (Amiodarone Hcl 200 Mg Tab) 200 mg FT BID [facility] Last Admin: 11/26/22 07:44 Dose: 200 mg Aspirin (Aspirin 81 Mg Chewable Tablet) 81 mg PO DAILY [facility] Last Admin: 11/26/22 07:44 Dose: 81 mg Baclofen (Baclofen 10 Mg Tab) 10 mg PO BID [facility] Last Admin: 11/26/22 07:48 Dose: 10 mg Enoxaparin Sodium (Enoxaparin 30 Mg/0.3 Ml) 30 mg SQ DAILY 5 PM [facility] Last Admin: 11/25/22 18:34 Dose: 30 mg Gabapentin (Gabapentin 300 Mg Cap) 300 mg PO DAILY [facility] Last Admin: 11/25/22 09:22 Dose: 300 mg Sodium Chloride (Sodium Chloride) 250 mls @ 999 mls/hr IV Q15M PRN PRN Reason: HYPOTENSION Last Admin: 11/12/22 19:55 Dose: 250 mls Meropenem 1,000 mg/ Sodium (Chloride) 100 mls @ 200 mls/hr IV Q8HR [facility] Last Admin: 11/26/22 00:54 Dose: 100 mls Ipratropium [place] (Ipratropium Brom 0.5mg/2.5ml) 0.5 mg NEB [id number] [facility] Last Admin: 11/26/22 01:15 Dose: 0.5 mg Levalbuterol HCl (Levalbuterol 0.63 Mg/3 Ml Neb) 0.63 mg NEB Q4HP PRN PRN Reason: SHORTNESS OF BREATH Lorazepam (Lorazepam 0.5 Mg Tablet) 0.5 mg PO Q2HP PRN PRN Reason: ANXIETY Last Admin: 11/26/22 07:44 Dose: 0.5 mg Metoprolol Tartrate (Metoprolol Tar 25 Mg Tab) 25 mg PO BID [facility] Last Admin: 11/26/22 07:43 Dose: 25 mg Morphine Sulfate (Morphine Sulf 10 Mg/5 Ml [place]) 4 mg PO Q4H PRN PRN Reason: Pain scale 5-7 (Moderate) Last Admin: 11/26/22 07:48 Dose: 4 mg Nitrofurantoin Macrocrystals (Nitrofuran Macro 50 Mg Cap) 100 mg PO QID [facility]; Protocol Last Admin: 11/26/22 07:48 Dose: 100 mg Ondansetron HCl (Ondansetron 4 Mg/2 Ml Vial) 4 mg IV Q4H PRN PRN Reason: NAUSEA / VOMITING Pantoprazole Sodium (Pantoprazole (Granules) 40 Mg/Blist Packet) 40 mg FT BIDAC [facility]; Protocol Last Admin: 11/26/22 07:47 Dose: 40 mg Senna (Senosides 8.6 Mg Tab) 8.6 mg PO DAILY [facility] Last Admin: 11/26/22 07:43 Dose: 8.6 mg Sodium Chloride (Sodium Chloride 0.9% 10ml Inj) 10 ml IV UD PRN PRN Reason: Diluant Sodium Chloride (Flush Normal Saline 10 Ml) 10 ml IV BID [facility] Last Admin: 11/25/22 20:32 Dose: 10 ml Tamsulosin HCl (Tamsulosin 0.4 Mg Sr Cap) 0.4 mg PO DAILY [facility] Last Admin: 11/26/22 07:44 Dose: 0.4 mg Microbiology Data (last 24 hrs): Microbiology 11/12/22 13:25 Blood - Blood Aerobic Blood Culture - Final Serratia Marcescens 11/12/22 13:25 Blood - Blood Blood Culture Gram Stain - Final 11/12/22 13:25 Blood - Blood Anaerobic Blood Culture - Final No growth in 5 days. Assessment And Plan - Current Problems (Diagnosis) (1) Bacteremia Plan: Cultures: 11/13 BC: Negative 11/13 Sputum: GNR - Serratia Marcsesens (MDR), susceptible to meropenem and Pseudomonas Aeruginosa, possible colonization (patient vital signs table, afebrile) 11/12 BC: GNR - Serratia Marcsesens (MDR) Antibiotics: On IV Meropenem from 11/13 Recommendation: Continue IV Meropenem for total of 14 days from 11/13 (repeated BC negative) (2) UTI (urinary tract infection) Plan: Cultures: 11/12 UC: Pseudomonas Aeruginosa (MDR), susceptible to Tobramycin and Enterococcus Faecium (MDR), susceptible to Gentamicin and intermittent to Nitrofurantoin Antibiotics: Current on PO Nitrofurantoin, 11/17 Recommendations: ID agrees with primary team's antibiotic selection PO Nitrofurantoin Can use acetic acid solution for bladder irrigation when patient spikes fever - Plan - Gram-neg septicemia: Continue IV antibiotics for total of 14 days from 11/13 (repeated BC negative) - UTI: On PO antibiotics - Pneumonia - Severe protein calorie malnutrition - Atrial fibrillation - HTN (hypertension) - Respiratory muscle paralysis - Hypernatremia - Anemia - ALS (Amyotrophic Lateral Sclerosis) - Pancreatitis Plans for discharge pending arrangement of home health home antibiotics ID will closely monitor the patient with signs of infection with fever and WBC trends Case has been discussed with Dr. Garcia N Physician Review: Patient Assessed, Agree with Above Assessment and Plan
--- NOTE | 2022-11-26 10:03 | P.PN ---
Date of Service: 11/26/22 Vital Signs Temp Pulse Resp BP Pulse Ox 97 F 120 H 20 118/76 98 11/26/22 08:01 11/26/22 08:01 11/26/22 08:01 11/26/22 08:01 11/26/22 08:01 Medications Acetaminophen (Acetaminophen 325 Mg Tablet) 650 mg PO Q6H PRN PRN Reason: TEMP > 100.4' F Last Admin: 11/25/22 12:03 Dose: 650 mg Albuterol Sulfate (Albuterol 2.5 Mg/3 Ml Neb Opal) 2.5 mg NEB [id number] PRN PRN Reason: WHEEZING Last Admin: 11/15/22 19:35 Dose: 2.5 mg Amiodarone HCl (Amiodarone Hcl 200 Mg Tab) 200 mg FT BID [facility] Last Admin: 11/26/22 07:44 Dose: 200 mg Aspirin (Aspirin 81 Mg Chewable Tablet) 81 mg PO DAILY [facility] Last Admin: 11/26/22 07:44 Dose: 81 mg Baclofen (Baclofen 10 Mg Tab) 10 mg PO BID [facility] Last Admin: 11/26/22 07:48 Dose: 10 mg Enoxaparin Sodium (Enoxaparin 30 Mg/0.3 Ml) 30 mg SQ DAILY 5 PM [facility] Last Admin: 11/25/22 18:34 Dose: 30 mg Gabapentin (Gabapentin 300 Mg Cap) 300 mg PO DAILY [facility] Last Admin: 11/26/22 09:43 Dose: 300 mg Sodium Chloride (Sodium Chloride) 250 mls @ 999 mls/hr IV Q15M PRN PRN Reason: HYPOTENSION Last Admin: 11/12/22 19:55 Dose: 250 mls Meropenem 1,000 mg/ Sodium (Chloride) 100 mls @ 200 mls/hr IV Q8HR [facility] Last Admin: 11/26/22 09:43 Dose: 100 mls Ipratropium [place] (Ipratropium Brom 0.5mg/2.5ml) 0.5 mg NEB [id number] [facility] Last Admin: 11/26/22 07:30 Dose: 0.5 mg Levalbuterol HCl (Levalbuterol 0.63 Mg/3 Ml Neb) 0.63 mg NEB Q4HP PRN PRN Reason: SHORTNESS OF BREATH Lorazepam (Lorazepam 0.5 Mg Tablet) 0.5 mg PO Q2HP PRN PRN Reason: ANXIETY Last Admin: 11/26/22 09:58 Dose: 0.5 mg Metoprolol Tartrate (Metoprolol Tar 25 Mg Tab) 25 mg PO BID [facility] Last Admin: 11/26/22 07:43 Dose: 25 mg Morphine Sulfate (Morphine Sulf 10 Mg/5 Ml [place]) 4 mg PO Q4H PRN PRN Reason: Pain scale 5-7 (Moderate) Last Admin: 11/26/22 07:48 Dose: 4 mg Nitrofurantoin Macrocrystals (Nitrofuran Macro 50 Mg Cap) 100 mg PO QID [facility]; Protocol Last Admin: 11/26/22 07:48 Dose: 100 mg Ondansetron HCl (Ondansetron 4 Mg/2 Ml Vial) 4 mg IV Q4H PRN PRN Reason: NAUSEA / VOMITING Pantoprazole Sodium (Pantoprazole (Granules) 40 Mg/Blist Packet) 40 mg FT BIDAC [facility]; Protocol Last Admin: 11/26/22 07:47 Dose: 40 mg Senna (Senosides 8.6 Mg Tab) 8.6 mg PO DAILY [facility] Last Admin: 11/26/22 07:43 Dose: 8.6 mg Sodium Chloride (Sodium Chloride 0.9% 10ml Inj) 10 ml IV UD PRN PRN Reason: Diluant Sodium Chloride (Flush Normal Saline 10 Ml) 10 ml IV BID [facility] Last Admin: 11/26/22 09:44 Dose: 10 ml Tamsulosin HCl (Tamsulosin 0.4 Mg Sr Cap) 0.4 mg PO DAILY [facility] Last Admin: 11/26/22 07:44 Dose: 0.4 mg Microbiology Results 11/12/22 13:25 Blood - Blood Aerobic Blood Culture - Final Serratia Marcescens 11/12/22 13:25 Blood - Blood Blood Culture Gram Stain - Final 11/12/22 13:25 Blood - Blood Anaerobic Blood Culture - Final No growth in 5 days. Assessment/ Plan: Nephrology No dyspnea No chest pain Fatigue and weakness Chronic pain No acute events overnight Vitals, medications, blood work and imaging reviewed in the chart General: In no apparent distress, Cooperative HEENT: Atraumatic Neck: Supple Respiratory: CTA Anteriorly Cardiovascular: No edema, Regular rate/rhythm Gastrointestinal: Non-distended Musculoskeletal: No clubbing, No contractures Integumentary: No rashes, No cyanosis Neurological: Abnormal speech Blood work reviewed in the chart. Imagings Data: Livescribe-bk EXAM DESCRIPTION: Dion Single View11/12/2022 1:05 pm CLINICAL HISTORY: Shortness of breath COMPARISON: September 2022 FINDINGS: Moderate to marked bilateral pulmonary opacities. The heart is normal size. Tracheostomy tube in place IMPRESSION: Moderate to marked bilateral pulmonary opacities may indicate pneumonia. EXAM DESCRIPTION: RAD - ENTEROSTOMY TUBE CHECK W/CONTR - 11/13/2022 9:53 am CLINICAL HISTORY: G tube placement confirmation COMPARISON: No comparisons FINDINGS: There were 2 KUB images obtained prior to and subsequent to retrograde injection of contrast via NG tube. The initial image shows G-tube in place in the midline abdomen. Stomach is not dilated. Air is seen in nondilated small bowel. Following retrograde injection, contrast is seen within the contracted gastric lumen. A small amount of contrast has extended into the duodenal C-loop. Focus of contrast along the right lateral margin of the G-tube does not clearly demonstrate gastric mucosal folds. Small amount of extraluminal contrast cannot be excluded. IMPRESSION: Questionable extraluminal contrast along the right lateral margin of the G-tube. CT abdomen examination without oral or IV contrast could be performed for more definitive assessment. LEFT VENTRICULAR WALL MOTION: ANTERIOR/ APICAL AKINESIS DOPPLER/COLOR FLOW: SEE BELOW COMMENTS: SEVERELY DEPRESSED LEFT VENTRICULAR EJECTION FRACTION 20-25%. ANTERIOR/ WIL SEPTAL/ APICAL AKINESIS. MODERATE MITRAL REGURGITATION. Conclusions/Impression: Proteinuria -No NSAIDs Hyponatremia, improving -Maintain nutrition Hypokalemia -Replete potassium prn -Maintain nutrition HypoPO4 -Replete phosphorus prn -Maintain nutrition Chronic Hypotension -IV Albumin prn Systolic CHF, chronic LVEF 20-25% Pulmonary edema -Daily weight Moderate to severe malnutrition with debility -Continue tube feeds Anemia in chronic illness Iron Deficiency 15% -Monitor H&H -Transfuse PRBCs prn Multifocal PNA Aspiration PNA -Trach status -Continue ventilatory support -Continue abx -ID following
[2022-11-26] MEDS: ENOXAPARIN 30 MG/0.3 ML SQ SCH (17:11)
[2022-11-26] MEDS ORDERED: METOPROLOL TARTRATE 5 MG/5 ML INJ IV PRN (18:35)
[2022-11-27] MEDS: Meropenem 1,000 MG in NA CHLORIDE 0.9% 100 ML IV SCH ×3 (00:53→17:50)
[2022-11-27] MEDS: IPRATROPIUM BROM 0.5MG/2.5ML NEB SCH ×4 (01:40→19:40)
[2022-11-27] MEDS: LORAZEPAM 0.5 MG TABLET PO PRN ×5 (03:05→20:15)
[2022-11-27] MEDS: MORPHINE SULF 10 MG/5 ML OSYR PO PRN ×4 (03:05→18:04)
--- NOTE | 2022-11-27 08:04 | P.PN ---
Subjective Date of Service: 11/27/22 Primary Care Provider: Orlin Chief Complaint: Pneumonia/cystitis Subjective: No new changes Patient has pseudomonas and entrococcus in the urine, Serrtia in the blood and sputum plans for discharge pending arrangement of home vent 11/27 had palpations last night Review of Systems 10-point ROS is otherwise unremarkable Cardiovascular: Palpitations Physical Examination - Vital Signs Temperature: 97.8 F Blood Pressure: 94/68 Pulse: 128 Respirations: 20 Pulse Ox (%): 100 - Physical Exam General: Alert, In no apparent distress HEENT: Atraumatic, PERRLA, EOMI Neck: Supple, JVD not distended Respiratory: Clear to auscultation bilaterally, Normal air movement Cardiovascular: Regular rate/rhythm, Normal S1 S2 Gastrointestinal: Normal bowel sounds, No tenderness Musculoskeletal: No tenderness Integumentary: No rashes Neurological: Normal speech, Normal tone, Normal affect Lymphatics: No axilla or inguinal lymphadenopathy Assessment And Plan - Current Problems (Diagnosis) (1) Atrial fibrillation Current Visit: No Status: Acute Plan: Patient is stable. Will continue amiodarone and metoprolol 11/27 increase the metoprolol to 50mg po bid Qualifiers: Atrial fibrillation type: paroxysmal Qualified Code(s): I48.0 - Paroxysmal atrial fibrillation (2) Gram-neg septicemia Current Visit: Yes Status: Acute Plan: will await antibiotigram to see what antibiotics he needs 11/23 hospice unlikely. will try for home health on this patient (3) Pneumonia Current Visit: Yes Status: Acute Plan: admit to the unit continue fluids and antibiotics. Will await blood cultures. consult to Dr. Beaver 11/[address] Beaver. He needs 2 weeks of meropenemn Qualifiers: Pneumonia type: due to unspecified organism Laterality: bilateral Lung location: lower lobe of lung Qualified Code(s): J18.9 - Pneumonia, unspecified organism (4) HTN (hypertension) Current Visit: No Status: Chronic Plan: He is currently hypotensive. Will hold the diltiazem Qualifiers: Hypertension type: primary hypertension Qualified Code(s): I10 - Essential (primary) hypertension (5) Respiratory muscle paralysis Current Visit: No Status: Chronic Plan: continue chronic vent management (6) Hypernatremia Current Visit: Yes Status: Acute Plan: improving with fluids. Dr. Wheeler is following (7) Anemia Current Visit: No Status: Acute Plan: 11/18 hb is back up to 9. Will keep him on protonix. He is always going to be a high risk for gi bleed. May get an outpatient work up Qualifiers: Anemia type: unspecified type Qualified Code(s): D64.9 - Anemia, unspecified (8) ALS (amyotrophic lateral sclerosis) Current Visit: No Status: Chronic Plan: patient is at his baseline (9) Whole body pain Current Visit: Yes Status: Acute Plan: will try oral morphine. If no relief it may be neuropathic pain. In which case we can try pregabalin or gabapentin - Plan Plans for discharge when his home health is arranged. Discharge Plan: Home Plan to discharge in: 24 Hours - Code Status/Comfort Care Code Status Assessed: No Physician Review: Patient Assessed, Agree with Above Assessment and Plan Critical Care: No Time Spent Managing PTS Care (In Minutes): 20
--- NOTE | 2022-11-27 08:15 | P.PN ---
Subjective Date of Service: 11/27/22 Primary Care Provider: Orlin Chief Complaint: Pneumonia/cystitis Patient lying in bed watching TV comfortably with no major events upon examination. RN at the bedside providing care. Physical Examination - Vital Signs Temperature: 97.8 F Blood Pressure: 94/68 Pulse: 128 Respirations: 20 Pulse Ox (%): 100 - Physical Exam General: Alert, In no apparent distress Neck: Other (trach in place. Dressing clean and dry) Respiratory: Rhonchi/gurgles, Other (trach dependent) Cardiovascular: Edema (2+ edema all extremities), Irregular heart rate/rhythm (a-fib) Capillary refill: >2 Seconds Gastrointestinal: Hypoactive, Other (PEG in place with bolus feed) Musculoskeletal: Swelling (2+ edema all extremities), Other (ALS) Integumentary: Tenderness/swelling (2+ edema all extremities) Neurological: Other (ALS) Urinary: Sanchez catheter (urine yellow and clear) - Studies active medications Acetaminophen (Acetaminophen 325 Mg Tablet) 650 mg PO Q6H PRN PRN Reason: TEMP > 100.4' F Last Admin: 11/25/22 12:03 Dose: 650 mg Albuterol Sulfate (Albuterol 2.5 Mg/3 Ml Neb Opal) 2.5 mg NEB [id number] PRN PRN Reason: WHEEZING Last Admin: 11/15/22 19:35 Dose: 2.5 mg Amiodarone HCl (Amiodarone Hcl 200 Mg Tab) 200 mg FT BID [facility] Last Admin: 11/26/22 20:42 Dose: 200 mg Aspirin (Aspirin 81 Mg Chewable Tablet) 81 mg PO DAILY [facility] Last Admin: 11/26/22 07:44 Dose: 81 mg Baclofen (Baclofen 10 Mg Tab) 10 mg PO BID [facility] Last Admin: 11/26/22 20:41 Dose: 10 mg Enoxaparin Sodium (Enoxaparin 30 Mg/0.3 Ml) 30 mg SQ DAILY 5 PM [facility] Last Admin: 11/26/22 17:11 Dose: 30 mg Gabapentin (Gabapentin 300 Mg Cap) 300 mg PO DAILY [facility] Last Admin: 11/26/22 09:43 Dose: 300 mg Sodium Chloride (Sodium Chloride) 250 mls @ 999 mls/hr IV Q15M PRN PRN Reason: HYPOTENSION Last Admin: 11/12/22 19:55 Dose: 250 mls Meropenem 1,000 mg/ Sodium (Chloride) 100 mls @ 200 mls/hr IV Q8HR [facility] Stop: 11/27/22 23:59 Last Admin: 11/27/22 00:53 Dose: 100 mls Ipratropium [place] (Ipratropium Brom 0.5mg/2.5ml) 0.5 mg NEB [id number] SABI Last Admin: 11/27/22 01:40 Dose: 0.5 mg Levalbuterol HCl (Levalbuterol 0.63 Mg/3 Ml Neb) 0.63 mg NEB [id number] PRN PRN Reason: SHORTNESS OF BREATH Lorazepam (Lorazepam 0.5 Mg Tablet) 0.5 mg PO Q2HP PRN PRN Reason: ANXIETY Last Admin: 11/27/22 03:05 Dose: 0.5 mg Metoprolol Tartrate (Metoprolol Tartrate 5 Mg/5 Ml Inj) 5 mg IV Q4H PRN PRN Reason: HR >120 Last Admin: 11/26/22 19:03 Dose: 5 mg Metoprolol Tartrate (Metoprolol Tar 50 Mg Tab) 50 mg PO BID [facility] Morphine Sulfate (Morphine Sulf 10 Mg/5 Ml [place]) 4 mg PO Q4H PRN PRN Reason: Pain scale 5-7 (Moderate) Last Admin: 11/27/22 03:05 Dose: 4 mg Nitrofurantoin Macrocrystals (Nitrofuran Macro 50 Mg Cap) 100 mg PO QID [facility]; Protocol Last Admin: 11/26/22 20:41 Dose: 100 mg Ondansetron HCl (Ondansetron 4 Mg/2 Ml Vial) 4 mg IV Q4H PRN PRN Reason: NAUSEA / VOMITING Pantoprazole Sodium (Pantoprazole (Granules) 40 Mg/Blist Packet) 40 mg FT BIDAC [facility]; Protocol Last Admin: 11/26/22 17:11 Dose: 40 mg Senna (Senosides 8.6 Mg Tab) 8.6 mg PO DAILY [facility] Last Admin: 11/26/22 07:43 Dose: 8.6 mg Sodium Chloride (Sodium Chloride 0.9% 10ml Inj) 10 ml IV UD PRN PRN Reason: Diluant Sodium Chloride (Flush Normal Saline 10 Ml) 10 ml IV BID [facility] Last Admin: 11/26/22 20:41 Dose: 10 ml Tamsulosin HCl (Tamsulosin 0.4 Mg Sr Cap) 0.4 mg PO DAILY [facility] Last Admin: 11/26/22 07:44 Dose: 0.4 mg Microbiology Data (last 24 hrs): Microbiology 11/12/22 13:25 Blood - Blood Aerobic Blood Culture - Final Serratia Marcescens 11/12/22 13:25 Blood - Blood Blood Culture Gram Stain - Final 11/12/22 13:25 Blood - Blood Anaerobic Blood Culture - Final No growth in 5 days. Assessment And Plan - Current Problems (Diagnosis) (1) Bacteremia Plan: Cultures: 11/13 BC: Negative 11/13 Sputum: GNR - Serratia Marcsesens (MDR), susceptible to meropenem and Pseudomonas Aeruginosa, possible colonization (patient vital signs table, afebrile) 11/12 BC: GNR - Serratia Marcsesens (MDR) Antibiotics: On IV Meropenem from 11/13 Recommendation: Continue IV Meropenem for total of 14 days from 11/13 (repeated BC negative) (2) UTI (urinary tract infection) Plan: Cultures: 11/12 UC: Pseudomonas Aeruginosa (MDR), susceptible to Tobramycin and Enterococcus Faecium (MDR), susceptible to Gentamicin and intermittent to Nitrofurantoin Antibiotics: Current on PO Nitrofurantoin, 11/17 Recommendations: ID agrees with primary team's antibiotic selection PO Nitrofurantoin Can use acetic acid solution for bladder irrigation when patient spikes fever - Plan - Gram-neg septicemia: Continue IV antibiotics for total of 14 days from 11/13 (repeated BC negative) - UTI: On PO antibiotics - Pneumonia - Severe protein calorie malnutrition - Atrial fibrillation - HTN (hypertension) - Respiratory muscle paralysis - Hypernatremia - Anemia - ALS (Amyotrophic Lateral Sclerosis) - Pancreatitis Plans for discharge, pending arrangement of home health home antibiotics, hospice unlikely ID will closely monitor the patient with signs of infection with fever and WBC trends Case has been discussed with Dr. Garcia N Physician Review: Patient Assessed, Agree with Above Assessment and Plan
[2022-11-27] MEDS: TAMSULOSIN 0.4 MG SR CAP PO SCH (08:57)
[2022-11-27] MEDS: GABAPENTIN 300 MG CAP PO SCH (08:57)
[2022-11-27] MEDS: SENOSIDES 8.6 MG TAB PO SCH (08:58)
[2022-11-27] MEDS: ASPIRIN 81 MG CHEWABLE TABLET PO SCH (08:58)
[2022-11-27] MEDS: AMIODARONE HCL 200 MG TAB FT SCH ×2 (08:58→20:14)
[2022-11-27] MEDS: Pantoprazole (granules) 40 MG/BLIST PACKET FT SCH ×2 (08:58→17:51)
[2022-11-27] MEDS: BACLOFEN 10 MG TAB PO SCH ×2 (08:58→20:16)
[2022-11-27] MEDS: NITROFURAN MACRO 50 MG CAP PO SCH ×4 (08:59→20:15)
[2022-11-27] MEDS: METOPROLOL TAR 50 MG TAB PO SCH ×2 (09:02→20:14)
[2022-11-27] MEDS: JEVITY 1.2 CAL LIQUID 1,000 ML BOT FT SCH ×3 (09:03→20:16)
[2022-11-27] MEDS: ENOXAPARIN 30 MG/0.3 ML SQ SCH (17:50)
--- NOTE | 2022-11-27 17:50 | P.PN ---
Date of Service: 11/27/22 spent more than 40min in a family meeting to discuss the patients disposition. Discussed first with the family and then with patient We had 2 options. The patient cannot get hospice or home health That leaves 1. home with the family managing his care.Will also be responsable for the copays. Which may be as much as $2000/month 2. refer him to a facility that manages vent. The closest one is in [place]. The family suggested what amounts to a terminal wean. The patient has never shown any interest in this. He refused it. Will not pursue a terminal wean. Either here or at home. We then discussed this with the patient. He would like to go home. However the expense to his family was definitely concerning to the patient Our psychosocial rehabilitation counselor Mary Kay discussed getting him into a facility. Which would be for 3 weeks. While that facilities biasness office helped the family apply for medicaid. Mr. Luevano assets would be used first to fund his stay. Then medicaid would cover the expense. The family and patient seemed to be leaning towards that
[2022-11-28] MEDS: MORPHINE SULF 10 MG/5 ML OSYR PO PRN ×4 (00:04→17:28)
[2022-11-28] MEDS: LORAZEPAM 0.5 MG TABLET PO PRN ×6 (00:20→21:38)
[2022-11-28] MEDS: IPRATROPIUM BROM 0.5MG/2.5ML NEB SCH ×4 (02:00→19:50)
--- NOTE | 2022-11-28 08:25 | P.PN ---
Subjective Date of Service: 11/28/22 Primary Care Provider: Orlin Chief Complaint: Pneumonia/cystitis Patient lying in bed watching TV comfortably with no major events upon examination. Physical Examination - Vital Signs Temperature: 97.4 F Blood Pressure: 120/71 Pulse: 123 Respirations: 20 Pulse Ox (%): 100 - Physical Exam General: Alert, In no apparent distress Respiratory: Rhonchi/gurgles, Other (Trach in place. Dressing clean and dry) Cardiovascular: Edema (right hand 2+ edema; b/l feet 1+), Irregular heart rate/rhythm (a-fib) Capillary refill: >2 Seconds Gastrointestinal: Hypoactive, Other (PEG in place) Musculoskeletal: Swelling (right hand 2+ edema; b/l feet 1+), Other (ALS) Integumentary: Tenderness/swelling (right hand 2+ edema; b/l feet 1+) Neurological: Other (ALS) Urinary: Sanchez catheter (urine yellow and clear) - Studies active medications Acetaminophen (Acetaminophen 325 Mg Tablet) 650 mg PO Q6H PRN PRN Reason: TEMP > 100.4' F Last Admin: 11/25/22 12:03 Dose: 650 mg Albuterol Sulfate (Albuterol 2.5 Mg/3 Ml Neb Opal) 2.5 mg NEB [id number] PRN PRN Reason: WHEEZING Last Admin: 11/15/22 19:35 Dose: 2.5 mg Amiodarone HCl (Amiodarone Hcl 200 Mg Tab) 200 mg FT BID [facility] Last Admin: 11/27/22 20:14 Dose: 200 mg Aspirin (Aspirin 81 Mg Chewable Tablet) 81 mg PO DAILY [facility] Last Admin: 11/27/22 08:58 Dose: 81 mg Baclofen (Baclofen 10 Mg Tab) 10 mg PO BID [facility] Last Admin: 11/27/22 20:16 Dose: 10 mg Enoxaparin Sodium (Enoxaparin 30 Mg/0.3 Ml) 30 mg SQ DAILY 5 PM [facility] Last Admin: 11/27/22 17:50 Dose: 30 mg Gabapentin (Gabapentin 300 Mg Cap) 300 mg PO DAILY [facility] Last Admin: 11/27/22 08:57 Dose: 300 mg Sodium Chloride (Sodium Chloride) 250 mls @ 999 mls/hr IV Q15M PRN PRN Reason: HYPOTENSION Last Admin: 11/12/22 19:55 Dose: 250 mls Ipratropium [place] (Ipratropium Brom 0.5mg/2.5ml) 0.5 mg NEB [id number] [facility] Last Admin: 11/28/22 02:00 Dose: Not Given Levalbuterol HCl (Levalbuterol 0.63 Mg/3 Ml Neb) 0.63 mg NEB [id number] PRN PRN Reason: SHORTNESS OF BREATH Lorazepam (Lorazepam 0.5 Mg Tablet) 0.5 mg PO Q2HP PRN PRN Reason: ANXIETY Last Admin: 11/28/22 05:54 Dose: 0.5 mg Metoprolol Tartrate (Metoprolol Tartrate 5 Mg/5 Ml Inj) 5 mg IV Q4H PRN PRN Reason: HR >120 Last Admin: 11/26/22 19:03 Dose: 5 mg Metoprolol Tartrate (Metoprolol Tar 50 Mg Tab) 50 mg PO BID [facility] Last Admin: 11/27/22 20:14 Dose: 50 mg Morphine Sulfate (Morphine Sulf 10 Mg/5 Ml [place]) 4 mg PO Q4H PRN PRN Reason: Pain scale 5-7 (Moderate) Last Admin: 11/28/22 05:54 Dose: 4 mg Nitrofurantoin Macrocrystals (Nitrofuran Macro 50 Mg Cap) 100 mg PO QID [facility]; Protocol Last Admin: 11/27/22 20:15 Dose: 100 mg Ondansetron HCl (Ondansetron 4 Mg/2 Ml Vial) 4 mg IV Q4H PRN PRN Reason: NAUSEA / VOMITING Pantoprazole Sodium (Pantoprazole (Granules) 40 Mg/Blist Packet) 40 mg FT BIDAC [facility]; Protocol Last Admin: 11/27/22 17:51 Dose: 40 mg Senna (Senosides 8.6 Mg Tab) 8.6 mg PO DAILY [facility] Last Admin: 11/27/22 08:58 Dose: 8.6 mg Sodium Chloride (Sodium Chloride 0.9% 10ml Inj) 10 ml IV UD PRN PRN Reason: Diluant Sodium Chloride (Flush Normal Saline 10 Ml) 10 ml IV BID [facility] Last Admin: 11/27/22 20:15 Dose: 10 ml Tamsulosin HCl (Tamsulosin 0.4 Mg Sr Cap) 0.4 mg PO DAILY [facility] Last Admin: 11/27/22 08:57 Dose: 0.4 mg Microbiology Data (last 24 hrs): Microbiology 11/12/22 13:25 Blood - Blood Aerobic Blood Culture - Final Serratia Marcescens 11/12/22 13:25 Blood - Blood Blood Culture Gram Stain - Final 11/12/22 13:25 Blood - Blood Anaerobic Blood Culture - Final No growth in 5 days. Assessment And Plan - Current Problems (Diagnosis) (1) Bacteremia Plan: Cultures: 11/13 BC: Negative 11/13 Sputum: GNR - Serratia Marcsesens (MDR), susceptible to meropenem and Pseudomonas Aeruginosa, possible colonization (patient vital signs table, afebrile) 11/12 BC: GNR - Serratia Marcsesens (MDR) Antibiotics: On IV Meropenem from 11/13 Recommendation: Continue IV Meropenem for total of 14 days from 11/13 (repeated BC negative) (2) UTI (urinary tract infection) Plan: Cultures: 11/12 UC: Pseudomonas Aeruginosa (MDR), susceptible to Tobramycin and Enterococcus Faecium (MDR), susceptible to Gentamicin and intermittent to Nitrofurantoin Antibiotics: Current on PO Nitrofurantoin, 11/17 Recommendations: ID agrees with primary team's antibiotic selection PO Nitrofurantoin Can use acetic acid solution for bladder irrigation when patient spikes fever - Plan - Gram-neg septicemia: Continue IV antibiotics for total of 14 days from 11/13 (repeated BC negative) - UTI: On PO antibiotics - Pneumonia - Severe protein calorie malnutrition - Atrial fibrillation - HTN (hypertension) - Respiratory muscle paralysis - Hypernatremia - Anemia - ALS (Amyotrophic Lateral Sclerosis) - Pancreatitis Plans for discharge, pending arrangement of home health home antibiotics, hospice unlikely ID will closely monitor the patient with signs of infection with fever and WBC trends Case has been discussed with Dr. Garcia, N Physician Review: Patient Assessed, Agree with Above Assessment and Plan
[2022-11-28] MEDS: SENOSIDES 8.6 MG TAB PO SCH (09:07)
[2022-11-28] MEDS: GABAPENTIN 300 MG CAP PO SCH (09:07)
[2022-11-28] MEDS: ASPIRIN 81 MG CHEWABLE TABLET PO SCH (09:07)
[2022-11-28] MEDS: NITROFURAN MACRO 50 MG CAP PO SCH ×4 (09:07→21:39)
[2022-11-28] MEDS: BACLOFEN 10 MG TAB PO SCH ×2 (09:07→21:39)
[2022-11-28] MEDS: Pantoprazole (granules) 40 MG/BLIST PACKET FT SCH ×2 (09:07→17:28)
[2022-11-28] MEDS: AMIODARONE HCL 200 MG TAB FT SCH ×2 (09:08→21:38)
[2022-11-28] MEDS: TAMSULOSIN 0.4 MG SR CAP PO SCH (09:08)
[2022-11-28] MEDS: JEVITY 1.2 CAL LIQUID 1,000 ML BOT FT SCH ×3 (09:08→21:36)
[2022-11-28] MEDS: METOPROLOL TAR 50 MG TAB PO SCH ×2 (09:08→21:38)
--- NOTE | 2022-11-28 11:12 | P.PN ---
Subjective Date of Service: 11/28/22 Primary Care Provider: Orlin Chief Complaint: Pneumonia/cystitis Patient has pseudomonas and entrococcus in the urine, Serrtia in the blood and sputum plans for discharge pending arrangement of home vent 11/28 plans for transfer to [facility]. Patient is stable to go once arranged Review of Systems 10-point ROS is otherwise unremarkable Physical Examination - Vital Signs Temperature: 97.4 F Blood Pressure: 95/54 Pulse: 61 Respirations: 20 Pulse Ox (%): 100 - Physical Exam General: Alert, In no apparent distress HEENT: Atraumatic, PERRLA, EOMI Neck: Supple, JVD not distended Respiratory: Clear to auscultation bilaterally, Normal air movement Cardiovascular: Regular rate/rhythm, Normal S1 S2 Gastrointestinal: Normal bowel sounds, No tenderness Musculoskeletal: No tenderness Integumentary: No rashes Neurological: Normal speech, Normal tone, Normal affect Lymphatics: No axilla or inguinal lymphadenopathy Assessment And Plan - Current Problems (Diagnosis) (1) Atrial fibrillation Current Visit: No Status: Acute Plan: Patient is stable. Will continue amiodarone and metoprolol 11/27 increase the metoprolol to 50mg po bid Qualifiers: Atrial fibrillation type: paroxysmal Qualified Code(s): I48.0 - Paroxysmal atrial fibrillation (2) Gram-neg septicemia Current Visit: Yes Status: Acute Plan: will await antibiotigram to see what antibiotics he needs 11/23 hospice unlikely. will try for home health on this patient (3) Pneumonia Current Visit: Yes Status: Acute Plan: admit to the unit continue fluids and antibiotics. Will await blood cultures. consult to Dr. Beaver 11/[address] Beaver. He needs 2 weeks of meropenemn Qualifiers: Pneumonia type: due to unspecified organism Laterality: bilateral Lung location: lower lobe of lung Qualified Code(s): J18.9 - Pneumonia, unspecified organism (4) HTN (hypertension) Current Visit: No Status: Chronic Plan: He is currently hypotensive. Will hold the diltiazem Qualifiers: Hypertension type: primary hypertension Qualified Code(s): I10 - Essential (primary) hypertension (5) Respiratory muscle paralysis Current Visit: No Status: Chronic Plan: continue chronic vent management (6) Hypernatremia Current Visit: Yes Status: Acute Plan: improving with fluids. Dr. Wheeler is following (7) Anemia Current Visit: No Status: Acute Plan: 11/18 hb is back up to 9. Will keep him on protonix. He is always going to be a high risk for gi bleed. May get an outpatient work up Qualifiers: Anemia type: unspecified type Qualified Code(s): D64.9 - Anemia, unspecified (8) ALS (amyotrophic lateral sclerosis) Current Visit: No Status: Chronic Plan: patient is at his baseline (9) Whole body pain Current Visit: Yes Status: Acute Plan: will try oral morphine. If no relief it may be neuropathic pain. In which case we can try pregabalin or gabapentin - Plan Plans for discharge when his home health is arranged. Discharge Plan: LTAC Plan to discharge in: 24 Hours - Code Status/Comfort Care Code Status Assessed: No Physician Review: Patient Assessed, Agree with Above Assessment and Plan Critical Care: No Time Spent Managing PTS Care (In Minutes): 30
[2022-11-28] MEDS: ENOXAPARIN 30 MG/0.3 ML SQ SCH (17:27)
[2022-11-28] MEDS: LEVALBUTEROL 0.63 MG/3 ML NEB NEB PRN (19:50)
[2022-11-29] MEDS: MORPHINE SULF 10 MG/5 ML OSYR PO PRN ×3 (00:50→14:46)
[2022-11-29] MEDS: LORAZEPAM 0.5 MG TABLET PO PRN ×5 (00:50→17:27)
[2022-11-29] MEDS: IPRATROPIUM BROM 0.5MG/2.5ML NEB SCH ×4 (01:20→20:00)
[2022-11-29] MEDS: LEVALBUTEROL 0.63 MG/3 ML NEB NEB PRN ×2 (07:55→14:53)
--- NOTE | 2022-11-29 08:11 | P.PN ---
Subjective Date of Service: 11/29/22 Primary Care Provider: Orlin Chief Complaint: Pneumonia/cystitis Patient has pseudomonas and entrococcus in the urine, Serrtia in the blood and sputum plans for discharge pending arrangement of home vent 11/29 plans for transfer to [facility] Patient is stable to go once arranged Review of Systems 10-point ROS is otherwise unremarkable Physical Examination - Vital Signs Temperature: 97.1 F Blood Pressure: 127/79 Pulse: 116 Respirations: 18 Pulse Ox (%): 100 - Physical Exam General: Alert, In no apparent distress HEENT: Atraumatic, PERRLA, EOMI Neck: Supple, JVD not distended Respiratory: Clear to auscultation bilaterally, Normal air movement Cardiovascular: Regular rate/rhythm, Normal S1 S2 Gastrointestinal: Normal bowel sounds, No tenderness Musculoskeletal: No tenderness Integumentary: No rashes Neurological: Normal speech, Normal tone, Normal affect Lymphatics: No axilla or inguinal lymphadenopathy Assessment And Plan - Current Problems (Diagnosis) (1) ALS (amyotrophic lateral sclerosis) Current Visit: No Status: Chronic Plan: plans for transfer to a facility in [place] to manage his vent. Will discharge once this is arranged (2) Atrial fibrillation Current Visit: No Status: Acute Plan: Patient is stable. Will continue amiodarone and metoprolol 11/27 increase the metoprolol to 50mg po bid Qualifiers: Atrial fibrillation type: paroxysmal Qualified Code(s): I48.0 - Paroxysmal atrial fibrillation (3) Gram-neg septicemia Current Visit: Yes Status: Resolved Plan: will await antibiotigram to see what antibiotics he needs 11/23 hospice unlikely. will try for home health on this patient (4) Pneumonia Current Visit: Yes Status: Acute Plan: admit to the unit continue fluids and antibiotics. Will await blood cultures. consult to Dr. Beaver 11/[address] Beaver. He needs 2 weeks of meropenemn Qualifiers: Pneumonia type: due to unspecified organism Laterality: bilateral Lung location: lower lobe of lung Qualified Code(s): J18.9 - Pneumonia, unspecified organism (5) HTN (hypertension) Current Visit: No Status: Chronic Plan: He is currently hypotensive. Will hold the diltiazem Qualifiers: Hypertension type: primary hypertension Qualified Code(s): I10 - Essential (primary) hypertension (6) Respiratory muscle paralysis Current Visit: No Status: Chronic Plan: continue chronic vent management (7) Hypernatremia Current Visit: Yes Status: Acute Plan: improving with fluids. Dr. Wheeler is following (8) Anemia Current Visit: No Status: Acute Plan: 11/18 hb is back up to 9. Will keep him on protonix. He is always going to be a high risk for gi bleed. May get an outpatient work up Qualifiers: Anemia type: unspecified type Qualified Code(s): D64.9 - Anemia, unspecified (9) Whole body pain Current Visit: Yes Status: Acute Plan: will try oral morphine. If no relief it may be neuropathic pain. In which case we can try pregabalin or gabapentin - Plan Plans for discharge when his home health is arranged. Discharge Plan: LTAC Plan to discharge in: 24 Hours - Code Status/Comfort Care Code Status Assessed: No Physician Review: Patient Assessed, Agree with Above Assessment and Plan Critical Care: No Time Spent Managing PTS Care (In Minutes): 20
--- NOTE | 2022-11-29 08:13 | P.PN ---
Subjective Date of Service: 11/29/22 Primary Care Provider: Orlin Chief Complaint: Pneumonia/cystitis Patient lying in bed resting with no major events upon examination. Physical Examination - Vital Signs Temperature: 97.1 F Blood Pressure: 127/79 Pulse: 116 Respirations: 18 Pulse Ox (%): 100 - Physical Exam General: Alert, In no apparent distress, Oriented x3 Respiratory: Rhonchi/gurgles, Other (Trach in place. Dressing clean and dry) Cardiovascular: Edema (right hand 2+ edema; b/l feet 1+), Irregular heart rate/rhythm Capillary refill: >2 Seconds Gastrointestinal: Hypoactive, Other (PEG in place) Musculoskeletal: Swelling (right hand 2+ edema; b/l feet 1+), Other (ALS) Integumentary: Tenderness/swelling (right hand 2+ edema; b/l feet 1+), Pressure ulcer (DTI bilateral inferior scapular) Neurological: Other (Trach in place not able to talk. Able to nod head; ALS) Urinary: Sanchez catheter (cintia and clear) - Studies active medications Microbiology 11/12/22 13:25 Blood - Blood Aerobic Blood Culture - Final Serratia Marcescens 11/12/22 13:25 Blood - Blood Blood Culture Gram Stain - Final 11/12/22 13:25 Blood - Blood Anaerobic Blood Culture - Final No growth in 5 days. Acetaminophen (Acetaminophen 325 Mg Tablet) 650 mg PO Q6H PRN PRN Reason: TEMP > 100.4' F Last Admin: 11/25/22 12:03 Dose: 650 mg Albuterol Sulfate (Albuterol 2.5 Mg/3 Ml Neb Opal) 2.5 mg NEB [id number] PRN PRN Reason: WHEEZING Last Admin: 11/15/22 19:35 Dose: 2.5 mg Amiodarone HCl (Amiodarone Hcl 200 Mg Tab) 200 mg FT BID [facility] Last Admin: 11/28/22 21:38 Dose: 200 mg Aspirin (Aspirin 81 Mg Chewable Tablet) 81 mg PO DAILY [facility] Last Admin: 11/28/22 09:07 Dose: 81 mg Baclofen (Baclofen 10 Mg Tab) 10 mg PO BID [facility] Last Admin: 11/28/22 21:39 Dose: 10 mg Enoxaparin Sodium (Enoxaparin 30 Mg/0.3 Ml) 30 mg SQ DAILY 5 PM [facility] Last Admin: 11/28/22 17:27 Dose: 30 mg Gabapentin (Gabapentin 300 Mg Cap) 300 mg PO DAILY [facility] Last Admin: 11/28/22 09:07 Dose: 300 mg Sodium Chloride (Sodium Chloride) 250 mls @ 999 mls/hr IV Q15M PRN PRN Reason: HYPOTENSION Last Admin: 11/12/22 19:55 Dose: 250 mls Ipratropium [place] (Ipratropium Brom 0.5mg/2.5ml) 0.5 mg NEB [id number] [facility] Last Admin: 11/29/22 01:20 Dose: 0.5 mg Levalbuterol HCl (Levalbuterol 0.63 Mg/3 Ml Neb) 0.63 mg NEB [id number] PRN PRN Reason: SHORTNESS OF BREATH Last Admin: 11/28/22 19:50 Dose: 0.63 mg Metoprolol Tartrate (Metoprolol Tartrate 5 Mg/5 Ml Inj) 5 mg IV Q4H PRN PRN Reason: HR >120 Last Admin: 11/26/22 19:03 Dose: 5 mg Metoprolol Tartrate (Metoprolol Tar 50 Mg Tab) 50 mg PO BID [facility] Last Admin: 11/28/22 21:38 Dose: 50 mg Morphine Sulfate (Morphine Sulf 10 Mg/5 Ml [place]) 4 mg PO Q4H PRN PRN Reason: Pain scale 5-7 (Moderate) Last Admin: 11/29/22 00:50 Dose: 4 mg Nitrofurantoin Macrocrystals (Nitrofuran Macro 50 Mg Cap) 100 mg PO QID [facility]; Protocol Last Admin: 11/28/22 21:39 Dose: 100 mg Ondansetron HCl (Ondansetron 4 Mg/2 Ml Vial) 4 mg IV Q4H PRN PRN Reason: NAUSEA / VOMITING Pantoprazole Sodium (Pantoprazole (Granules) 40 Mg/Blist Packet) 40 mg FT BIDAC [facility]; Protocol Last Admin: 11/28/22 17:28 Dose: 40 mg Senna (Senosides 8.6 Mg Tab) 8.6 mg PO DAILY [facility] Last Admin: 11/28/22 09:07 Dose: 8.6 mg Sodium Chloride (Sodium Chloride 0.9% 10ml Inj) 10 ml IV UD PRN PRN Reason: Diluant Sodium Chloride (Flush Normal Saline 10 Ml) 10 ml IV BID [facility] Last Admin: 11/28/22 21:36 Dose: 10 ml Tamsulosin HCl (Tamsulosin 0.4 Mg Sr Cap) 0.4 mg PO DAILY [facility] Last Admin: 11/28/22 09:08 Dose: 0.4 mg Microbiology Data (last 24 hrs): Microbiology 11/12/22 13:25 Blood - Blood Aerobic Blood Culture - Final Serratia Marcescens 11/12/22 13:25 Blood - Blood Blood Culture Gram Stain - Final 11/12/22 13:25 Blood - Blood Anaerobic Blood Culture - Final No growth in 5 days. Assessment And Plan - Current Problems (Diagnosis) (1) Bacteremia Plan: Cultures: 11/13 BC: Negative 11/13 Sputum: GNR - Serratia Marcsesens (MDR), susceptible to meropenem and Pseudomonas Aeruginosa, possible colonization (patient vital signs table, afebrile) 11/12 BC: GNR - Serratia Marcsesens (MDR) Antibiotics: On IV Meropenem from 11/13-11/28, completed (2) UTI (urinary tract infection) Plan: Cultures: 11/12 UC: Pseudomonas Aeruginosa (MDR), susceptible to Tobramycin and Enterococcus Faecium (MDR), susceptible to Gentamicin and intermittent to Nitrofurantoin Antibiotics: Current on PO Nitrofurantoin, 11/17 Recommendations: ID agrees with primary team's antibiotic selection PO Nitrofurantoin Can use acetic acid solution for bladder irrigation when patient spikes fever - Plan - Gram-neg septicemia: IV antibiotics completed - UTI: On PO antibiotics - Pneumonia - Severe protein calorie malnutrition - Atrial fibrillation - HTN (hypertension) - Respiratory muscle paralysis - Hypernatremia - Anemia - ALS (Amyotrophic Lateral Sclerosis) - Pancreatitis Plans to d/c to [facility] ID will closely monitor the patient with signs of infection with fever and WBC trends Case has been discussed with Dr. Garcia N Physician Review: Patient Assessed, Agree with Above Assessment and Plan
[2022-11-29] MEDS: METOPROLOL TAR 50 MG TAB PO SCH ×2 (09:50→21:00)
[2022-11-29] MEDS: ASPIRIN 81 MG CHEWABLE TABLET PO SCH (09:50)
[2022-11-29] MEDS: SENOSIDES 8.6 MG TAB PO SCH (09:50)
[2022-11-29] MEDS: TAMSULOSIN 0.4 MG SR CAP PO SCH (09:50)
[2022-11-29] MEDS: BACLOFEN 10 MG TAB PO SCH ×2 (09:50→21:38)
[2022-11-29] MEDS: AMIODARONE HCL 200 MG TAB FT SCH ×2 (09:50→21:39)
[2022-11-29] MEDS: GABAPENTIN 300 MG CAP PO SCH (09:50)
[2022-11-29] MEDS: NITROFURAN MACRO 50 MG CAP PO SCH ×4 (09:50→21:39)
[2022-11-29] MEDS: Pantoprazole (granules) 40 MG/BLIST PACKET FT SCH ×2 (09:50→17:27)
[2022-11-29] MEDS: JEVITY 1.2 CAL LIQUID 1,000 ML BOT FT SCH (09:51)
[2022-11-29] MEDS: JEVITY 1.5 CAL LIQUID 1,000 ML BOT FT SCH ×3 (13:03→21:39)
[2022-11-29] MEDS: ENOXAPARIN 30 MG/0.3 ML SQ SCH (17:26)
--- NOTE | 2022-11-29 20:38 | P.PN ---
Date of Service: 11/29/22 Vital Signs Temp Pulse Resp BP Pulse Ox 97.0 F 122 H 20 79/58 L 99 11/29/22 16:00 11/29/22 18:00 11/29/22 18:00 11/29/22 18:00 11/29/22 17:00 Medications Acetaminophen (Acetaminophen 325 Mg Tablet) 650 mg PO Q6H PRN PRN Reason: TEMP > 100.4' F Last Admin: 11/25/22 12:03 Dose: 650 mg Albuterol Sulfate (Albuterol 2.5 Mg/3 Ml Neb Opal) 2.5 mg NEB [id number] PRN PRN Reason: WHEEZING Last Admin: 11/15/22 19:35 Dose: 2.5 mg Amiodarone HCl (Amiodarone Hcl 200 Mg Tab) 200 mg FT BID [facility] Last Admin: 11/29/22 09:50 Dose: 200 mg Aspirin (Aspirin 81 Mg Chewable Tablet) 81 mg PO DAILY [facility] Last Admin: 11/29/22 09:50 Dose: 81 mg Baclofen (Baclofen 10 Mg Tab) 10 mg PO BID [facility] Last Admin: 11/29/22 09:50 Dose: 10 mg Enoxaparin Sodium (Enoxaparin 30 Mg/0.3 Ml) 30 mg SQ DAILY 5 PM [facility] Last Admin: 11/29/22 17:26 Dose: 30 mg Gabapentin (Gabapentin 300 Mg Cap) 300 mg PO DAILY [facility] Last Admin: 11/29/22 09:50 Dose: 300 mg Sodium Chloride (Sodium Chloride) 250 mls @ 999 mls/hr IV Q15M PRN PRN Reason: HYPOTENSION Last Admin: 11/12/22 19:55 Dose: 250 mls Ipratropium [place] (Ipratropium Brom 0.5mg/2.5ml) 0.5 mg NEB [id number] [facility] Last Admin: 11/29/22 14:53 Dose: 0.5 mg Levalbuterol HCl (Levalbuterol 0.63 Mg/3 Ml Neb) 0.63 mg NEB [id number] PRN PRN Reason: SHORTNESS OF BREATH Last Admin: 11/29/22 14:53 Dose: 0.63 mg Lorazepam (Lorazepam 0.5 Mg Tablet) 0.5 mg PO Q2H PRN PRN Reason: ANXIETY Last Admin: 11/29/22 17:27 Dose: 0.5 mg Metoprolol Tartrate (Metoprolol Tartrate 5 Mg/5 Ml Inj) 5 mg IV Q4H PRN PRN Reason: HR >120 Last Admin: 11/26/22 19:03 Dose: 5 mg Metoprolol Tartrate (Metoprolol Tar 50 Mg Tab) 50 mg PO BID [facility] Last Admin: 11/29/22 09:50 Dose: 50 mg Morphine Sulfate (Morphine Sulf 10 Mg/5 Ml [place]) 4 mg PO Q4H PRN PRN Reason: Pain scale 5-7 (Moderate) Last Admin: 11/29/22 14:46 Dose: 4 mg Nitrofurantoin Macrocrystals (Nitrofuran Macro 50 Mg Cap) 100 mg PO QID [facility]; Protocol Last Admin: 11/29/22 17:26 Dose: 100 mg Ondansetron HCl (Ondansetron 4 Mg/2 Ml Vial) 4 mg IV Q4H PRN PRN Reason: NAUSEA / VOMITING Pantoprazole Sodium (Pantoprazole (Granules) 40 Mg/Blist Packet) 40 mg FT BIDAC [facility]; Protocol Last Admin: 11/29/22 17:27 Dose: 40 mg Senna (Senosides 8.6 Mg Tab) 8.6 mg PO DAILY [facility] Last Admin: 11/29/22 09:50 Dose: 8.6 mg Sodium Chloride (Sodium Chloride 0.9% 10ml Inj) 10 ml IV UD PRN PRN Reason: Diluant Sodium Chloride (Flush Normal Saline 10 Ml) 10 ml IV BID [facility] Last Admin: 11/29/22 09:51 Dose: 10 ml Tamsulosin HCl (Tamsulosin 0.4 Mg Sr Cap) 0.4 mg PO DAILY [facility] Last Admin: 11/29/22 09:50 Dose: 0.4 mg Microbiology Results 11/12/22 13:25 Blood - Blood Aerobic Blood Culture - Final Serratia Marcescens 11/12/22 13:25 Blood - Blood Blood Culture Gram Stain - Final 11/12/22 13:25 Blood - Blood Anaerobic Blood Culture - Final No growth in 5 days. Assessment/ Plan: Nephrology No dyspnea No chest pain Fatigue and weakness Chronic pain No acute events overnight Vitals, medications, blood work and imaging reviewed in the chart General: In no apparent distress, Cooperative HEENT: Atraumatic Neck: Supple Respiratory: CTA Anteriorly Cardiovascular: No edema, Regular rate/rhythm Gastrointestinal: Non-distended Musculoskeletal: No clubbing, No contractures Integumentary: No rashes, No cyanosis Neurological: Abnormal speech Blood work reviewed in the chart. Imagings Data: [employer] EXAM DESCRIPTION: Dion Single View11/12/2022 1:05 pm CLINICAL HISTORY: Shortness of breath COMPARISON: September 2022 FINDINGS: Moderate to marked bilateral pulmonary opacities. The heart is normal size. Tracheostomy tube in place IMPRESSION: Moderate to marked bilateral pulmonary opacities may indicate pneumonia. EXAM DESCRIPTION: RAD - ENTEROSTOMY TUBE CHECK W/CONTR - 11/13/2022 9:53 am CLINICAL HISTORY: G tube placement confirmation COMPARISON: No comparisons FINDINGS: There were 2 KUB images obtained prior to and subsequent to retrograde injection of contrast via NG tube. The initial image shows G-tube in place in the midline abdomen. Stomach is not dilated. Air is seen in nondilated small bowel. Following retrograde injection, contrast is seen within the contracted gastric lumen. A small amount of contrast has extended into the duodenal C-loop. Focus of contrast along the right lateral margin of the G-tube does not clearly demonstrate gastric mucosal folds. Small amount of extraluminal contrast cannot be excluded. IMPRESSION: Questionable extraluminal contrast along the right lateral margin of the G-tube. CT abdomen examination without oral or IV contrast could be performed for more definitive assessment. LEFT VENTRICULAR WALL MOTION: ANTERIOR/ APICAL AKINESIS DOPPLER/COLOR FLOW: SEE BELOW COMMENTS: SEVERELY DEPRESSED LEFT VENTRICULAR EJECTION FRACTION 20-25%. ANTERIOR/ WIL SEPTAL/ APICAL AKINESIS. MODERATE MITRAL REGURGITATION. Conclusions/Impression: Proteinuria -No NSAIDs Hyponatremia, improving -Maintain nutrition Hypokalemia -Replete potassium prn -Maintain nutrition HypoPO4 -Replete phosphorus prn -Maintain nutrition Chronic Hypotension -IV Albumin prn Systolic CHF, chronic LVEF 20-25% Pulmonary edema -Daily weight Moderate to severe malnutrition with debility -Continue tube feeds Anemia in chronic illness Iron Deficiency 15% -Monitor H&H -Transfuse PRBCs prn Multifocal PNA Aspiration PNA -Trach status -Continue ventilatory support -Continue abx -ID following
[2022-11-30] MEDS: IPRATROPIUM BROM 0.5MG/2.5ML NEB SCH ×4 (01:15→20:40)
[2022-11-30] MEDS: LORAZEPAM 0.5 MG TABLET PO PRN ×7 (05:28→23:36)
[2022-11-30] MEDS ORDERED: BISACODYL 10 MG RECTAL SUPP PR PRN (07:58)
[2022-11-30] MEDS: MORPHINE SULF 10 MG/5 ML OSYR PO PRN ×4 (07:59→21:24)
[2022-11-30] MEDS: TAMSULOSIN 0.4 MG SR CAP PO SCH (07:59)
[2022-11-30] MEDS: AMIODARONE HCL 200 MG TAB FT SCH ×2 (08:00→19:56)
[2022-11-30] MEDS: SENOSIDES 8.6 MG TAB PO SCH (08:00)
[2022-11-30] MEDS: METOPROLOL TAR 50 MG TAB PO SCH ×2 (08:00→19:56)
[2022-11-30] MEDS: GABAPENTIN 300 MG CAP PO SCH (08:00)
[2022-11-30] MEDS: NITROFURAN MACRO 50 MG CAP PO SCH (08:00)
[2022-11-30] MEDS: ASPIRIN 81 MG CHEWABLE TABLET PO SCH (08:00)
--- NOTE | 2022-11-30 08:00 | P.PN ---
Subjective Date of Service: 11/30/22 Primary Care Provider: Orlin Chief Complaint: Pneumonia/cystitis Patient has pseudomonas and entrococcus in the urine, Serrtia in the blood and sputum plans for discharge pending arrangement of home vent 11/30 plans for transfer to [facility]. Patient is stable to go once arranged Review of Systems 10-point ROS is otherwise unremarkable Physical Examination - Vital Signs Temperature: 96.7 F Blood Pressure: 111/71 Pulse: 124 Respirations: 24 Pulse Ox (%): 100 - Physical Exam General: Alert, In no apparent distress HEENT: Atraumatic, PERRLA, EOMI Neck: Supple, JVD not distended Respiratory: Clear to auscultation bilaterally, Normal air movement Cardiovascular: Regular rate/rhythm, Normal S1 S2 Gastrointestinal: Normal bowel sounds, No tenderness Musculoskeletal: No tenderness Integumentary: No rashes Neurological: Normal speech, Normal tone, Normal affect Lymphatics: No axilla or inguinal lymphadenopathy Assessment And Plan - Current Problems (Diagnosis) (1) ALS (amyotrophic lateral sclerosis) Current Visit: No Status: Chronic Plan: plans for transfer to a facility in [place] to manage his vent. Will discharge once this is arranged Awaiting transfer to [facility] (2) Atrial fibrillation Current Visit: No Status: Acute Plan: Patient is stable. Will continue amiodarone and metoprolol 11/27 increase the metoprolol to 50mg po bid Qualifiers: Atrial fibrillation type: paroxysmal Qualified Code(s): I48.0 - Paroxysmal atrial fibrillation (3) Gram-neg septicemia Current Visit: Yes Status: Resolved Plan: will await antibiotigram to see what antibiotics he needs 11/23 hospice unlikely. will try for home health on this patient (4) Pneumonia Current Visit: Yes Status: Acute Plan: admit to the unit continue fluids and antibiotics. Will await blood cultures. consult to Dr. Beaver 11/[address] Beaver. He needs 2 weeks of meropenemn Qualifiers: Pneumonia type: due to unspecified organism Laterality: bilateral Lung location: lower lobe of lung Qualified Code(s): J18.9 - Pneumonia, unspecified organism (5) HTN (hypertension) Current Visit: No Status: Chronic Plan: He is currently hypotensive. Will hold the diltiazem Qualifiers: Hypertension type: primary hypertension Qualified Code(s): I10 - Essential (primary) hypertension (6) Respiratory muscle paralysis Current Visit: No Status: Chronic Plan: continue chronic vent management (7) Hypernatremia Current Visit: Yes Status: Acute Plan: improving with fluids. Dr. Wheeler is following (8) Anemia Current Visit: No Status: Acute Plan: 11/18 hb is back up to 9. Will keep him on protonix. He is always going to be a high risk for gi bleed. May get an outpatient work up Qualifiers: Anemia type: unspecified type Qualified Code(s): D64.9 - Anemia, unspecified (9) Whole body pain Current Visit: Yes Status: Acute Plan: will try oral morphine. If no relief it may be neuropathic pain. In which case we can try pregabalin or gabapentin - Plan Plans for discharge when his home health is arranged. Discharge Plan: LTAC Plan to discharge in: 24 Hours - Code Status/Comfort Care Code Status Assessed: No Physician Review: Patient Assessed, Agree with Above Assessment and Plan Critical Care: No Time Spent Managing PTS Care (In Minutes): 20
[2022-11-30] MEDS: Pantoprazole (granules) 40 MG/BLIST PACKET FT SCH (08:01)
[2022-11-30] MEDS: JEVITY 1.5 CAL LIQUID 1,000 ML BOT FT SCH ×4 (08:01→19:57)
[2022-11-30] MEDS: BACLOFEN 10 MG TAB PO SCH ×2 (08:01→19:57)
[2022-11-30 12:08] LABS: Absolute Lymphocytes (CBC) 0.6 K/uL (0.7-4.9); Hematocrit 22.5 % (39.6-49.0); Lymphocytes % 5.4 % (15.3-44.8); MCV 89.9 fL (80-100); MPV 7.6 fL (7.6-11.3)
--- NOTE | 2022-11-30 12:20 | P.PN ---
Subjective Date of Service: 11/30/22 Primary Care Provider: Orlin Chief Complaint: Pneumonia Subjective: Improving (Patient is improving doing well thing for transfer to a fpc facility will) Review of Systems General: Weakness Respiratory: Shortness of Breath Physical Examination - Vital Signs Temperature: 97.4 F Blood Pressure: 98/68 Pulse: 121 Respirations: 20 Pulse Ox (%): 100 - Physical Exam General: Alert, Cooperative Respiratory: Clear to auscultation bilaterally, Diminished Cardiovascular: No edema, Regular rate/rhythm Assessment And Plan - Current Problems (Diagnosis) (1) Pneumonia Current Visit: Yes Status: Acute Plan: Patient is doing well is a little tachycardic blood pressure stable White count is normal chemistry has been ordered patient is in A-fib patient is on SIMV with FiO2 of 30% Qualifiers: Pneumonia type: due to unspecified organism Laterality: bilateral Lung location: lower lobe of lung Qualified Code(s): J18.9 - Pneumonia, unspecified organism (2) Iron (Fe) deficiency anemia Current Visit: Yes Status: Acute Plan: Anemia possible iron deficiency we will start on iron transfusions she has become anemic again (3) Bacteremia Current Visit: Yes Status: Acute Plan: Serratia isolated from the blood sensitive to meropenem labs reviewed (4) Vancomycin resistant Enterococcus Current Visit: Yes Status: Acute Plan: Patient has VRE isolated from the urine add some Macrodantin related in the urine increase Cogentin to 100 mg every 6 hours ID consult Physician Review: Patient Assessed, Agree with Above Assessment and Plan
[2022-11-30 12:21] LABS: Potassium 4.5 mmol/L (3.5-5.1)
--- NOTE | 2022-11-30 15:11 | PN ---
Subjective: The patient is lying in bed, on trach to vent, not in any distress, responding well to a ny verbal stimuli. Clinically, no complaints at this time. Objective: Vital Signs: Reviewed. Lungs: Basal crackles. Heart: S1, S2. Regular. Abdomen: Soft, nontender. Bowel sounds present. Extremity: No edema. Laboratory Data: Reviewed. Assessment And Plan: Vent dependent with trach in place. No new complaints. Status post bacteremia and urinary tract infection, treatment done. The patient is currently on p.o. nitrofurantoin for 2 weeks prophylactically and can be stopped. Continue supportive care. Continue pulmonary rehab. Sev ere protein-calorie malnourishment, anemia of chronic disease, mild leukocytosis. We will follow the patient as needed. NF/MODL Voice ID: [id number] Report ID: [id number]
[2022-11-30] MEDS: ENOXAPARIN 30 MG/0.3 ML SQ SCH (16:54)
[2022-12-01] MEDS: LORAZEPAM 0.5 MG TABLET PO PRN ×8 (01:43→23:38)
[2022-12-01] MEDS: MORPHINE SULF 10 MG/5 ML OSYR PO PRN ×5 (01:44→21:20)
[2022-12-01] MEDS: IPRATROPIUM BROM 0.5MG/2.5ML NEB SCH ×4 (02:50→20:00)
[2022-12-01] MEDS: ASPIRIN 81 MG CHEWABLE TABLET PO SCH (08:28)
[2022-12-01] MEDS: AMIODARONE HCL 200 MG TAB FT SCH ×2 (08:28→20:04)
[2022-12-01] MEDS: GABAPENTIN 300 MG CAP PO SCH (08:28)
[2022-12-01] MEDS: TAMSULOSIN 0.4 MG SR CAP PO SCH (08:28)
[2022-12-01] MEDS: BACLOFEN 10 MG TAB PO SCH ×2 (08:28→20:05)
[2022-12-01] MEDS: SENOSIDES 8.6 MG TAB PO SCH (08:28)
[2022-12-01] MEDS: METOPROLOL TAR 50 MG TAB PO SCH ×2 (08:29→20:04)
[2022-12-01] MEDS: JEVITY 1.5 CAL LIQUID 1,000 ML BOT FT SCH ×4 (08:30→20:05)
--- NOTE | 2022-12-01 10:52 | P.PN ---
Subjective Date of Service: 12/01/22 Primary Care Provider: Orlin Chief Complaint: Pneumonia Subjective: No new changes Patient has pseudomonas and entrococcus in the urine, Serrtia in the blood and sputum plans for discharge pending arrangement of home vent 11/30 plans for transfer to [facility]. Patient is stable to go once arranged Review of Systems 10-point ROS is otherwise unremarkable Physical Examination - Vital Signs Temperature: 97.4 F Blood Pressure: 113/74 Pulse: 124 Respirations: 26 Pulse Ox (%): 100 - Physical Exam General: Alert, In no apparent distress HEENT: Atraumatic, PERRLA, EOMI Neck: Supple, JVD not distended Respiratory: Clear to auscultation bilaterally, Normal air movement Cardiovascular: Regular rate/rhythm, Normal S1 S2 Gastrointestinal: Normal bowel sounds, No tenderness Musculoskeletal: No tenderness Integumentary: No rashes Neurological: Normal speech, Normal tone, Normal affect Lymphatics: No axilla or inguinal lymphadenopathy Assessment And Plan - Current Problems (Diagnosis) (1) ALS (amyotrophic lateral sclerosis) Current Visit: No Status: Chronic Plan: plans for transfer to a facility in [place] to manage his vent. Will discharge once this is arranged Awaiting transfer to [facility] 12/01 Most likely the patient will be here for the weekends (2) Atrial fibrillation Current Visit: No Status: Acute Plan: Patient is stable. Will continue amiodarone and metoprolol 11/27 increase the metoprolol to 50mg po bid Qualifiers: Atrial fibrillation type: paroxysmal Qualified Code(s): I48.0 - Paroxysmal atrial fibrillation (3) Gram-neg septicemia Current Visit: Yes Status: Resolved Plan: will await antibiotigram to see what antibiotics he needs 11/23 hospice unlikely. will try for home health on this patient (4) Pneumonia Current Visit: Yes Status: Acute Plan: admit to the unit continue fluids and antibiotics. Will await blood cultures. consult to Dr. Beaver 11/[address] Beaver. He needs 2 weeks of meropenemn Qualifiers: Pneumonia type: due to unspecified organism Laterality: bilateral Lung location: lower lobe of lung Qualified Code(s): J18.9 - Pneumonia, unspecified organism (5) HTN (hypertension) Current Visit: No Status: Chronic Plan: He is currently hypotensive. Will hold the diltiazem Qualifiers: Hypertension type: primary hypertension Qualified Code(s): I10 - Essential (primary) hypertension (6) Respiratory muscle paralysis Current Visit: No Status: Chronic Plan: continue chronic vent management (7) Hypernatremia Current Visit: Yes Status: Acute Plan: improving with fluids. Dr. Wheeler is following (8) Anemia Current Visit: No Status: Acute Plan: 11/18 hb is back up to 9. Will keep him on protonix. He is always going to be a high risk for gi bleed. May get an outpatient work up Qualifiers: Anemia type: unspecified type Qualified Code(s): D64.9 - Anemia, unspecified (9) Whole body pain Current Visit: Yes Status: Acute Plan: will try oral morphine. If no relief it may be neuropathic pain. In which case we can try pregabalin or gabapentin - Plan Plans for discharge when his home health is arranged. Discharge Plan: Home Plan to discharge in: 24 Hours - Code Status/Comfort Care Code Status Assessed: No Physician Review: Patient Assessed, Agree with Above Assessment and Plan Critical Care: No Time Spent Managing PTS Care (In Minutes): 20
[2022-12-01] MEDS: LEVALBUTEROL 0.63 MG/3 ML NEB NEB PRN ×2 (14:10→20:00)
[2022-12-01] MEDS: ENOXAPARIN 30 MG/0.3 ML SQ SCH (16:26)
[2022-12-02] MEDS: MORPHINE SULF 10 MG/5 ML OSYR PO PRN ×4 (01:46→20:26)
[2022-12-02] MEDS: LORAZEPAM 0.5 MG TABLET PO PRN ×6 (01:46→20:27)
[2022-12-02] MEDS: IPRATROPIUM BROM 0.5MG/2.5ML NEB SCH ×4 (02:40→21:20)
[2022-12-02] MEDS: BACLOFEN 10 MG TAB PO SCH ×2 (07:59→20:27)
[2022-12-02] MEDS: GABAPENTIN 300 MG CAP PO SCH (07:59)
[2022-12-02] MEDS: SENOSIDES 8.6 MG TAB PO SCH (07:59)
[2022-12-02] MEDS: AMIODARONE HCL 200 MG TAB FT SCH ×2 (07:59→20:27)
[2022-12-02] MEDS: ASPIRIN 81 MG CHEWABLE TABLET PO SCH (08:00)
[2022-12-02] MEDS: METOPROLOL TAR 50 MG TAB PO SCH ×2 (08:00→20:27)
[2022-12-02] MEDS: JEVITY 1.5 CAL LIQUID 1,000 ML BOT FT SCH ×4 (08:00→20:28)
[2022-12-02] MEDS: TAMSULOSIN 0.4 MG SR CAP PO SCH (08:00)
--- NOTE | 2022-12-02 09:22 | P.PN ---
Subjective Date of Service: 12/02/22 Primary Care Provider: Orlin Chief Complaint: Pneumonia Subjective: No new changes Patient has pseudomonas and entrococcus in the urine, Serrtia in the blood and sputum plans for discharge pending arrangement of home vent 11/30 plans for transfer to [facility]. Patient is stable to go once arranged Review of Systems 10-point ROS is otherwise unremarkable Physical Examination - Vital Signs Temperature: 96.4 F Blood Pressure: 115/80 Pulse: 124 Respirations: 18 Pulse Ox (%): 100 - Physical Exam General: Alert, In no apparent distress HEENT: Atraumatic, PERRLA, EOMI Neck: Supple, JVD not distended Respiratory: Clear to auscultation bilaterally, Normal air movement Cardiovascular: Regular rate/rhythm, Normal S1 S2 Gastrointestinal: Normal bowel sounds, No tenderness Musculoskeletal: No tenderness Integumentary: No rashes Neurological: Normal speech, Normal tone, Normal affect Lymphatics: No axilla or inguinal lymphadenopathy Assessment And Plan - Current Problems (Diagnosis) (1) ALS (amyotrophic lateral sclerosis) Current Visit: No Status: Chronic Plan: plans for transfer to a facility in [place] to manage his vent. Will discharge once this is arranged Awaiting transfer to [facility] 12/01 Most likely the patient will be here for the weekends (2) Atrial fibrillation Current Visit: No Status: Acute Plan: Patient is stable. Will continue amiodarone and metoprolol 11/27 increase the metoprolol to 50mg po bid Qualifiers: Atrial fibrillation type: paroxysmal Qualified Code(s): I48.0 - Paroxysmal atrial fibrillation (3) Gram-neg septicemia Current Visit: Yes Status: Resolved Plan: will await antibiotigram to see what antibiotics he needs 11/23 hospice unlikely. will try for home health on this patient (4) Pneumonia Current Visit: Yes Status: Acute Plan: admit to the unit continue fluids and antibiotics. Will await blood cultures. consult to Dr. Beaver 11/[address] Beaver. He needs 2 weeks of meropenemn Qualifiers: Pneumonia type: due to unspecified organism Laterality: bilateral Lung location: lower lobe of lung Qualified Code(s): J18.9 - Pneumonia, unspecified organism (5) HTN (hypertension) Current Visit: No Status: Chronic Plan: He is currently hypotensive. Will hold the diltiazem Qualifiers: Hypertension type: primary hypertension Qualified Code(s): I10 - Essential (primary) hypertension (6) Respiratory muscle paralysis Current Visit: No Status: Chronic Plan: continue chronic vent management (7) Hypernatremia Current Visit: Yes Status: Acute Plan: improving with fluids. Dr. Wheeler is following (8) Anemia Current Visit: No Status: Acute Plan: 11/18 hb is back up to 9. Will keep him on protonix. He is always going to be a high risk for gi bleed. May get an outpatient work up Qualifiers: Anemia type: unspecified type Qualified Code(s): D64.9 - Anemia, unspecified (9) Whole body pain Current Visit: Yes Status: Acute Plan: will try oral morphine. If no relief it may be neuropathic pain. In which case we can try pregabalin or gabapentin - Plan Plans for discharge when his home health is arranged. Discharge Plan: Home Plan to discharge in: 24 Hours - Code Status/Comfort Care Code Status Assessed: No Physician Review: Patient Assessed, Agree with Above Assessment and Plan Critical Care: No Time Spent Managing PTS Care (In Minutes): 20
[2022-12-02] MEDS: ENOXAPARIN 30 MG/0.3 ML SQ SCH (16:08)
[2022-12-03] MEDS: IPRATROPIUM BROM 0.5MG/2.5ML NEB SCH ×4 (02:25→19:35)
[2022-12-03] MEDS: LORAZEPAM 0.5 MG TABLET PO PRN ×6 (03:00→23:10)
[2022-12-03 04:41] LABS: Absolute Lymphocytes (CBC) 0.7 K/uL (0.7-4.9); Hematocrit 24.6 % (39.6-49.0); Lymphocytes % 6.1 % (15.3-44.8); MCV 89.7 fL (80-100); MPV 7.3 fL (7.6-11.3); RBC Red Blood Cell Count 2.74 M/uL (4.33-5.43)
[2022-12-03 04:58] LABS: Albumin 1.8 g/dL (3.4-5.0); Bilirubin Total 0.5 mg/dL (0.2-1.0); Potassium 4.7 mmol/L (3.5-5.1); Protein, Total 6.6 g/dL (6.4-8.2)
[2022-12-03] MEDS ORDERED: ALBUTEROL 2.5 MG/3 ML NEB SOL NEB PRN ×2 (07:48→13:00)
--- NOTE | 2022-12-03 07:49 | P.PN ---
Subjective Date of Service: 12/03/22 Primary Care Provider: Orlin Chief Complaint: Pneumonia Subjective: No new changes Patient has pseudomonas and entrococcus in the urine, Serrtia in the blood and sputum plans for discharge pending arrangement of home vent 11/30 [facility]. Patient is stable to go once arranged Review of Systems 10-point ROS is otherwise unremarkable Physical Examination - Vital Signs Temperature: 97.5 F Blood Pressure: 108/67 Pulse: 120 Respirations: 20 Pulse Ox (%): 100 - Physical Exam General: Alert, In no apparent distress HEENT: Atraumatic, PERRLA, EOMI Neck: Supple, JVD not distended Respiratory: Clear to auscultation bilaterally, Normal air movement Cardiovascular: Regular rate/rhythm, Normal S1 S2 Gastrointestinal: Normal bowel sounds, No tenderness Musculoskeletal: No tenderness Integumentary: No rashes Neurological: Normal speech, Normal tone, Normal affect Lymphatics: No axilla or inguinal lymphadenopathy Assessment And Plan - Current Problems (Diagnosis) (1) ALS (amyotrophic lateral sclerosis) Current Visit: No Status: Chronic Plan: plans for transfer to a facility in [place] to manage his vent. Will discharge once this is arranged Awaiting transfer to [facility] 12/01 Most likely the patient will be here for the weekends (2) Atrial fibrillation Current Visit: No Status: Acute Plan: Patient is stable. Will continue amiodarone and metoprolol 11/27 increase the metoprolol to 50mg po bid Qualifiers: Atrial fibrillation type: paroxysmal Qualified Code(s): I48.0 - Paroxysmal atrial fibrillation (3) Gram-neg septicemia Current Visit: Yes Status: Resolved Plan: will await antibiotigram to see what antibiotics he needs 11/23 hospice unlikely. will try for home health on this patient (4) Pneumonia Current Visit: Yes Status: Acute Plan: admit to the unit continue fluids and antibiotics. Will await blood cultures. consult to Dr. Beaver 11/[address] Beaver. He needs 2 weeks of meropenemn Qualifiers: Pneumonia type: due to unspecified organism Laterality: bilateral Lung location: lower lobe of lung Qualified Code(s): J18.9 - Pneumonia, unspecified organism (5) HTN (hypertension) Current Visit: No Status: Chronic Plan: He is currently hypotensive. Will hold the diltiazem Qualifiers: Hypertension type: primary hypertension Qualified Code(s): I10 - Essential (primary) hypertension (6) Respiratory muscle paralysis Current Visit: No Status: Chronic Plan: continue chronic vent management (7) Hypernatremia Current Visit: Yes Status: Acute Plan: improving with fluids. Dr. Wheeler is following (8) Anemia Current Visit: No Status: Acute Plan: 11/18 hb is back up to 9. Will keep him on protonix. He is always going to be a high risk for gi bleed. May get an outpatient work up Qualifiers: Anemia type: unspecified type Qualified Code(s): D64.9 - Anemia, unspecified (9) Whole body pain Current Visit: Yes Status: Acute Plan: will try oral morphine. If no relief it may be neuropathic pain. In which case we can try pregabalin or gabapentin - Plan Plans for discharge when his home health is arranged. Discharge Plan: LTAC Plan to discharge in: 24 Hours - Code Status/Comfort Care Code Status Assessed: No Physician Review: Patient Assessed, Agree with Above Assessment and Plan Critical Care: No Time Spent Managing PTS Care (In Minutes): 20
[2022-12-03] MEDS: AMIODARONE HCL 200 MG TAB FT SCH ×2 (08:19→20:16)
[2022-12-03] MEDS: BACLOFEN 10 MG TAB PO SCH ×2 (08:19→20:17)
[2022-12-03] MEDS: ASPIRIN 81 MG CHEWABLE TABLET PO SCH (08:19)
[2022-12-03] MEDS: TAMSULOSIN 0.4 MG SR CAP PO SCH (08:19)
[2022-12-03] MEDS: METOPROLOL TAR 50 MG TAB PO SCH ×2 (08:20→20:16)
[2022-12-03] MEDS: JEVITY 1.5 CAL LIQUID 1,000 ML BOT FT SCH ×4 (08:20→20:18)
[2022-12-03] MEDS: GABAPENTIN 300 MG CAP PO SCH (08:20)
[2022-12-03] MEDS: SENOSIDES 8.6 MG TAB PO SCH (08:20)
[2022-12-03] MEDS: MORPHINE SULF 10 MG/5 ML OSYR PO PRN ×3 (09:12→23:35)
--- NOTE | 2022-12-03 09:49 | P.PN ---
Date of Service: 12/03/22 Vital Signs Temp Pulse Resp BP Pulse Ox 96.6 F L 121 H 22 H 110/88 100 12/03/22 08:00 12/03/22 09:00 12/03/22 09:00 12/03/22 09:00 12/03/22 09:00 Medications Acetaminophen (Acetaminophen 325 Mg Tablet) 650 mg PO Q6H PRN PRN Reason: TEMP > 100.4' F Last Admin: 11/25/22 12:03 Dose: 650 mg Albuterol Sulfate (Albuterol 2.5 Mg/3 Ml Neb Opal) 2.5 mg NEB Q6HP PRN PRN Reason: WHEEZING Amiodarone HCl (Amiodarone Hcl 200 Mg Tab) 200 mg FT BID [facility] Last Admin: 12/03/22 08:19 Dose: 200 mg Aspirin (Aspirin 81 Mg Chewable Tablet) 81 mg PO DAILY [facility] Last Admin: 12/03/22 08:19 Dose: 81 mg Baclofen (Baclofen 10 Mg Tab) 10 mg PO BID [facility] Last Admin: 12/03/22 08:19 Dose: 10 mg Bisacodyl (Bisacodyl 10 Mg Rectal Supp) 10 mg MI DAILY PRN PRN Reason: CONSTIPATION Enoxaparin Sodium (Enoxaparin 30 Mg/0.3 Ml) 30 mg SQ DAILY 5 PM [facility] Last Admin: 12/02/22 16:08 Dose: 30 mg Gabapentin (Gabapentin 300 Mg Cap) 300 mg PO DAILY [facility] Last Admin: 12/03/22 08:20 Dose: 300 mg Sodium Chloride (Sodium Chloride) 250 mls @ 999 mls/hr IV Q15M PRN PRN Reason: HYPOTENSION Last Admin: 11/12/22 19:55 Dose: 250 mls Ipratropium [place] (Ipratropium Brom 0.5mg/2.5ml) 0.5 mg NEB [id number] [facility] Last Admin: 12/03/22 08:00 Dose: 0.5 mg Levalbuterol HCl (Levalbuterol 0.63 Mg/3 Ml Neb) 0.63 mg NEB [id number] PRN PRN Reason: SHORTNESS OF BREATH Last Admin: 12/01/22 20:00 Dose: 0.63 mg Lorazepam (Lorazepam 0.5 Mg Tablet) 0.5 mg PO Q2H PRN PRN Reason: ANXIETY Last Admin: 12/03/22 08:59 Dose: 0.5 mg Metoprolol Tartrate (Metoprolol Tartrate 5 Mg/5 Ml Inj) 5 mg IV Q4H PRN PRN Reason: HR >120 Last Admin: 11/26/22 19:03 Dose: 5 mg Metoprolol Tartrate (Metoprolol Tar 50 Mg Tab) 50 mg PO BID [facility] Last Admin: 12/03/22 08:20 Dose: Not Given Morphine Sulfate (Morphine Sulf 10 Mg/5 Ml [place]) 4 mg PO Q4H PRN PRN Reason: Pain scale 5-7 (Moderate) Last Admin: 12/03/22 09:12 Dose: 4 mg Ondansetron HCl (Ondansetron 4 Mg/2 Ml Vial) 4 mg IV Q4H PRN PRN Reason: NAUSEA / VOMITING Senna (Senosides 8.6 Mg Tab) 8.6 mg PO DAILY [facility] Last Admin: 12/03/22 08:20 Dose: 8.6 mg Sodium Chloride (Sodium Chloride 0.9% 10ml Inj) 10 ml IV UD PRN PRN Reason: Diluant Sodium Chloride (Flush Normal Saline 10 Ml) 10 ml IV BID [facility] Last Admin: 12/03/22 08:21 Dose: 10 ml Tamsulosin HCl (Tamsulosin 0.4 Mg Sr Cap) 0.4 mg PO DAILY [facility] Last Admin: 12/03/22 08:19 Dose: 0.4 mg Microbiology Results 11/12/22 13:25 Blood - Blood Aerobic Blood Culture - Final Serratia Marcescens 11/12/22 13:25 Blood - Blood Blood Culture Gram Stain - Final 11/12/22 13:25 Blood - Blood Anaerobic Blood Culture - Final No growth in 5 days. Assessment/ Plan: Nephrology No dyspnea No chest pain Fatigue and weakness Chronic pain No acute events overnight Vitals, medications, blood work and imaging reviewed in the chart General: In no apparent distress, Cooperative HEENT: Atraumatic Neck: Supple Respiratory: CTA Anteriorly Cardiovascular: No edema, Regular rate/rhythm Gastrointestinal: Non-distended Musculoskeletal: No clubbing, No contractures Integumentary: No rashes, No cyanosis Neurological: Abnormal speech Blood work reviewed in the chart. Imagings Data: [facility] EXAM DESCRIPTION: Dion Single View11/12/2022 1:05 pm CLINICAL HISTORY: Shortness of breath COMPARISON: September 2022 FINDINGS: Moderate to marked bilateral pulmonary opacities. The heart is normal size. Tracheostomy tube in place IMPRESSION: Moderate to marked bilateral pulmonary opacities may indicate pneumonia. EXAM DESCRIPTION: RAD - ENTEROSTOMY TUBE CHECK W/CONTR - 11/13/2022 9:53 am CLINICAL HISTORY: G tube placement confirmation COMPARISON: No comparisons FINDINGS: There were 2 KUB images obtained prior to and subsequent to retrograde injection of contrast via NG tube. The initial image shows G-tube in place in the midline abdomen. Stomach is not dilated. Air is seen in nondilated small bowel. Following retrograde injection, contrast is seen within the contracted gastric lumen. A small amount of contrast has extended into the duodenal C-loop. Focus of contrast along the right lateral margin of the G-tube does not clearly demonstrate gastric mucosal folds. Small amount of extraluminal contrast cannot be excluded. IMPRESSION: Questionable extraluminal contrast along the right lateral margin of the G-tube. CT abdomen examination without oral or IV contrast could be performed for more definitive assessment. LEFT VENTRICULAR WALL MOTION: ANTERIOR/ APICAL AKINESIS DOPPLER/COLOR FLOW: SEE BELOW COMMENTS: SEVERELY DEPRESSED LEFT VENTRICULAR EJECTION FRACTION 20-25%. ANTERIOR/ WIL SEPTAL/ APICAL AKINESIS. MODERATE MITRAL REGURGITATION. Conclusions/Impression: Proteinuria -No NSAIDs Hyponatremia, improving -Maintain nutrition -Free water flushes for the tube feeds have been reduced by 500ml daily -[employer] notified by Hypokalemia -Replete potassium prn -Maintain nutrition HypoPO4 -Replete phosphorus prn -Maintain nutrition Chronic Hypotension -IV Albumin prn Systolic CHF, chronic LVEF 20-25% Pulmonary edema -Daily weight Moderate to severe malnutrition with debility -Continue tube feeds Anemia in chronic illness Iron Deficiency 15% -Monitor H&H -Transfuse PRBCs prn -Consider IV iron Multifocal PNA & Aspiration PNA, resolved -Trach status -Continue ventilatory support
--- NOTE | 2022-12-03 12:05 | P.PN ---
Subjective Date of Service: 12/03/22 Primary Care Provider: Orlin Chief Complaint: Pneumonia Patient lying in bed resting with no major events upon examination. Physical Examination - Vital Signs Temperature: 96.6 F Blood Pressure: 91/58 Pulse: 123 Respirations: 20 Pulse Ox (%): 100 - Physical Exam General: Alert, In no apparent distress Respiratory: Crackles/rales, Other (Trach in place. Dressing clean and dry) Cardiovascular: Edema (right hand 2+ edema; b/l feet 1+), Irregular heart rate/rhythm (a-fib) Gastrointestinal: Hypoactive, Other (PEG in place) Musculoskeletal: Swelling (right hand 2+ edema; b/l feet 1+), Other (ALS) Integumentary: Tenderness/swelling (right hand 2+ edema; b/l feet 1+), Pressure ulcer (DTI bilateral inferior scapular) Neurological: Other (Trach in place not able to talk. Able to nod head; ALS) Urinary: Sanchez catheter (cintia and clear) - Studies active medications Acetaminophen (Acetaminophen 325 Mg Tablet) 650 mg PO Q6H PRN PRN Reason: TEMP > 100.4' F Last Admin: 11/25/22 12:03 Dose: 650 mg Albuterol Sulfate (Albuterol 2.5 Mg/3 Ml Neb Opal) 2.5 mg NEB Q6HP PRN PRN Reason: WHEEZING Amiodarone HCl (Amiodarone Hcl 200 Mg Tab) 200 mg FT BID [facility] Last Admin: 12/03/22 08:19 Dose: 200 mg Aspirin (Aspirin 81 Mg Chewable Tablet) 81 mg PO DAILY [facility] Last Admin: 12/03/22 08:19 Dose: 81 mg Baclofen (Baclofen 10 Mg Tab) 10 mg PO BID [facility] Last Admin: 12/03/22 08:19 Dose: 10 mg Bisacodyl (Bisacodyl 10 Mg Rectal Supp) 10 mg [place] DAILY PRN PRN Reason: CONSTIPATION Enoxaparin Sodium (Enoxaparin 30 Mg/0.3 Ml) 30 mg SQ DAILY 5 PM [facility] Last Admin: 12/02/22 16:08 Dose: 30 mg Gabapentin (Gabapentin 300 Mg Cap) 300 mg PO DAILY [facility] Last Admin: 12/03/22 08:20 Dose: 300 mg Sodium Chloride (Sodium Chloride) 250 mls @ 999 mls/hr IV Q15M PRN PRN Reason: HYPOTENSION Last Admin: 11/12/22 19:55 Dose: 250 mls Ipratropium [place] (Ipratropium Brom 0.5mg/2.5ml) 0.5 mg NEB [id number] [facility] Last Admin: 12/03/22 08:00 Dose: 0.5 mg Levalbuterol HCl (Levalbuterol 0.63 Mg/3 Ml Neb) 0.63 mg NEB [id number] PRN PRN Reason: SHORTNESS OF BREATH Last Admin: 12/01/22 20:00 Dose: 0.63 mg Lorazepam (Lorazepam 0.5 Mg Tablet) 0.5 mg PO Q2H PRN PRN Reason: ANXIETY Last Admin: 12/03/22 08:59 Dose: 0.5 mg Metoprolol Tartrate (Metoprolol Tartrate 5 Mg/5 Ml Inj) 5 mg IV Q4H PRN PRN Reason: HR >120 Last Admin: 11/26/22 19:03 Dose: 5 mg Metoprolol Tartrate (Metoprolol Tar 50 Mg Tab) 50 mg PO BID [facility] Last Admin: 12/03/22 08:20 Dose: Not Given Morphine Sulfate (Morphine Sulf 10 Mg/5 Ml [place]) 4 mg PO Q4H PRN PRN Reason: Pain scale 5-7 (Moderate) Last Admin: 12/03/22 09:12 Dose: 4 mg Ondansetron HCl (Ondansetron 4 Mg/2 Ml Vial) 4 mg IV Q4H PRN PRN Reason: NAUSEA / VOMITING Senna (Senosides 8.6 Mg Tab) 8.6 mg PO DAILY [facility] Last Admin: 12/03/22 08:20 Dose: 8.6 mg Sodium Chloride (Sodium Chloride 0.9% 10ml Inj) 10 ml IV UD PRN PRN Reason: Diluant Sodium Chloride (Flush Normal Saline 10 Ml) 10 ml IV BID [facility] Last Admin: 12/03/22 08:21 Dose: 10 ml Tamsulosin HCl (Tamsulosin 0.4 Mg Sr Cap) 0.4 mg PO DAILY [facility] Last Admin: 12/03/22 08:19 Dose: 0.4 mg Assessment And Plan - Current Problems (Diagnosis) (1) Bacteremia Plan: Cultures: 11/13 BC: Negative 11/13 Sputum: GNR - Serratia Marcsesens (MDR), susceptible to meropenem and Pseudomonas Aeruginosa, possible colonization (patient vital signs table, afebrile) 11/12 BC: GNR - Serratia Marcsesens (MDR) Antibiotics: On IV Meropenem from 11/13-11/28, completed (2) UTI (urinary tract infection) Plan: Cultures: 11/12 UC: Pseudomonas Aeruginosa (MDR), susceptible to Tobramycin and Enterococcus Faecium (MDR), susceptible to Gentamicin and intermittent to Nitrofurantoin Antibiotics: Current on PO Nitrofurantoin, 11/17-11/30, completed Recommendations: Can use acetic acid solution for bladder irrigation when patient spikes fever - Plan - Gram-neg septicemia: Antibiotics completed - UTI: Antibiotics completed - Pneumonia - Severe protein calorie malnutrition - Atrial fibrillation - HTN (hypertension) - Respiratory muscle paralysis - Hypernatremia - Anemia - ALS (Amyotrophic Lateral Sclerosis) - Pancreatitis Plans to d/c to [facility] ID will closely monitor the patient with signs of infection with fever and WBC trends Case has been discussed with Dr. Garcia, N Physician Review: Patient Assessed, Agree with Above Assessment and Plan
[2022-12-03] MEDS: ACETAMINOPHEN 325 MG TABLET PO PRN (15:14)
[2022-12-03] MEDS: ENOXAPARIN 40 MG/0.4 ML SQ SCH (16:25)
[2022-12-04] MEDS: IPRATROPIUM BROM 0.5MG/2.5ML NEB SCH ×4 (01:40→20:55)
[2022-12-04] MEDS: LORAZEPAM 0.5 MG TABLET PO PRN ×8 (02:10→21:08)
[2022-12-04] MEDS: MORPHINE SULF 10 MG/5 ML OSYR PO PRN ×4 (06:06→18:52)
[2022-12-04] MEDS: TAMSULOSIN 0.4 MG SR CAP PO SCH (08:35)
[2022-12-04] MEDS: ASPIRIN 81 MG CHEWABLE TABLET PO SCH (08:35)
[2022-12-04] MEDS: AMIODARONE HCL 200 MG TAB FT SCH ×2 (08:35→21:08)
[2022-12-04] MEDS: BACLOFEN 10 MG TAB PO SCH ×2 (08:35→21:08)
[2022-12-04] MEDS: METOPROLOL TAR 50 MG TAB PO SCH ×2 (08:35→21:00)
[2022-12-04] MEDS: SENOSIDES 8.6 MG TAB PO SCH (08:35)
[2022-12-04] MEDS: GABAPENTIN 300 MG CAP PO SCH (08:35)
[2022-12-04] MEDS: JEVITY 1.5 CAL LIQUID 1,000 ML BOT FT SCH ×4 (08:37→21:11)
--- NOTE | 2022-12-04 13:35 | PN ---
Subjective: The patient is lying in bed, on vent. Family by the bedside. Not in any acute distress . Objective: Vital signs: Reviewed. Lungs: Basal crackles. Heart: S1, S2. Regular. Abdomen: Soft, nontender. Bowel sounds present. Extremity: No edema. Laboratory Data: Reviewed. Assessment And Plan: 1.Chronic respiratory failure. The patient is off antibiotic. Continue pulmonary hygiene and suppo rtive care. The patient is being transferred possibly to [facility]. 2.Bacteremia, treated. 3.Urinary tract infection. Treatment complete. The patient continues to be on supportive care and we will monitor for signs of infection. NF/MODL Voice ID: [id number] Report ID: [id number]
--- NOTE | 2022-12-04 14:15 | P.PN ---
Subjective Date of Service: 12/04/22 Primary Care Provider: Orlin Chief Complaint: Pneumonia Subjective: No new changes Patient has pseudomonas and entrococcus in the urine, Serrtia in the blood and sputum plans for discharge pending arrangement of home vent 11/30 plans for transfer to [facility]. Patient is stable to go once arranged Review of Systems 10-point ROS is otherwise unremarkable Physical Examination - Vital Signs Temperature: 96.9 F Blood Pressure: 95/64 Pulse: 122 Respirations: 18 Pulse Ox (%): 98 - Physical Exam General: Alert, In no apparent distress HEENT: Atraumatic, PERRLA, EOMI Neck: Supple, JVD not distended Respiratory: Clear to auscultation bilaterally, Normal air movement Cardiovascular: Regular rate/rhythm, Normal S1 S2 Gastrointestinal: Normal bowel sounds, No tenderness Musculoskeletal: No tenderness Integumentary: No rashes Neurological: Normal speech, Normal tone, Normal affect Lymphatics: No axilla or inguinal lymphadenopathy Assessment And Plan - Current Problems (Diagnosis) (1) ALS (amyotrophic lateral sclerosis) Current Visit: No Status: Chronic Plan: plans for transfer to a facility in [place] to manage his vent. Will discharge once this is arranged Awaiting [facility] 12/01 Most likely the patient will be here for the weekends (2) Atrial fibrillation Current Visit: No Status: Acute Plan: Patient is stable. Will continue amiodarone and metoprolol 11/27 increase the metoprolol to 50mg po bid Qualifiers: Atrial fibrillation type: paroxysmal Qualified Code(s): I48.0 - Paroxysmal atrial fibrillation (3) Gram-neg septicemia Current Visit: Yes Status: Resolved Plan: will await antibiotigram to see what antibiotics he needs 11/23 hospice unlikely. will try for home health on this patient (4) Pneumonia Current Visit: Yes Status: Acute Plan: admit to the unit continue fluids and antibiotics. Will await blood cultures. consult to Dr. Beaver 11/[address] Beaver. He needs 2 weeks of meropenemn Qualifiers: Pneumonia type: due to unspecified organism Laterality: bilateral Lung location: lower lobe of lung Qualified Code(s): J18.9 - Pneumonia, unspecified organism (5) HTN (hypertension) Current Visit: No Status: Chronic Plan: He is currently hypotensive. Will hold the diltiazem Qualifiers: Hypertension type: primary hypertension Qualified Code(s): I10 - Essential (primary) hypertension (6) Respiratory muscle paralysis Current Visit: No Status: Chronic Plan: continue chronic vent management (7) Hypernatremia Current Visit: Yes Status: Acute Plan: improving with fluids. Dr. Wheeler is following (8) Anemia Current Visit: No Status: Acute Plan: 11/18 hb is back up to 9. Will keep him on protonix. He is always going to be a high risk for gi bleed. May get an outpatient work up Qualifiers: Anemia type: unspecified type Qualified Code(s): D64.9 - Anemia, unspecified (9) Whole body pain Current Visit: Yes Status: Acute Plan: will try oral morphine. If no relief it may be neuropathic pain. In which case we can try pregabalin or gabapentin - Plan Plans for discharge when his home health is arranged. Discharge Plan: LTAC Plan to discharge in: 24 Hours - Code Status/Comfort Care Code Status Assessed: No Physician Review: Patient Assessed, Agree with Above Assessment and Plan Critical Care: No Time Spent Managing PTS Care (In Minutes): 20
[2022-12-04] MEDS: ENOXAPARIN 40 MG/0.4 ML SQ SCH (16:11)
--- NOTE | 2022-12-04 22:15 | P.PN ---
Date of Service: 12/04/22 Vital Signs Temp Pulse Resp BP Pulse Ox 98.5 F 122 H 21 H 87/64 L 100 12/04/22 20:00 12/04/22 21:00 12/04/22 20:00 12/04/22 21:00 12/04/22 20:00 Medications Acetaminophen (Acetaminophen 325 Mg Tablet) 650 mg PO Q6H PRN PRN Reason: TEMP > 100.4' F Last Admin: 12/03/22 15:14 Dose: 650 mg Albuterol Sulfate (Albuterol 2.5 Mg/3 Ml Neb Opal) 2.5 mg NEB [id number] PRN PRN Reason: WHEEZING Amiodarone HCl (Amiodarone Hcl 200 Mg Tab) 200 mg FT BID [facility] Last Admin: 12/04/22 21:08 Dose: 200 mg Aspirin (Aspirin 81 Mg Chewable Tablet) 81 mg PO DAILY [facility] Last Admin: 12/04/22 08:35 Dose: 81 mg Baclofen (Baclofen 10 Mg Tab) 10 mg PO BID [facility] Last Admin: 12/04/22 21:08 Dose: 10 mg Bisacodyl (Bisacodyl 10 Mg Rectal Supp) 10 mg [place] DAILY PRN PRN Reason: CONSTIPATION Enoxaparin Sodium (Enoxaparin 40 Mg/0.4 Ml) 40 mg SQ DAILY 5 PM [facility] Last Admin: 12/04/22 16:11 Dose: 40 mg Gabapentin (Gabapentin 300 Mg Cap) 300 mg PO DAILY [facility] Last Admin: 12/04/22 08:35 Dose: 300 mg Sodium Chloride (Sodium Chloride) 250 mls @ 999 mls/hr IV Q15M PRN PRN Reason: HYPOTENSION Last Admin: 11/12/22 19:55 Dose: 250 mls Ipratropium [place] (Ipratropium Brom 0.5mg/2.5ml) 0.5 mg NEB [id number] [facility] Last Admin: 12/04/22 20:55 Dose: 0.5 mg Levalbuterol HCl (Levalbuterol 0.63 Mg/3 Ml Neb) 0.63 mg NEB [id number] PRN PRN Reason: SHORTNESS OF BREATH Last Admin: 12/01/22 20:00 Dose: 0.63 mg Lorazepam (Lorazepam 0.5 Mg Tablet) 0.5 mg PO Q2H PRN PRN Reason: ANXIETY Last Admin: 12/04/22 21:08 Dose: 0.5 mg Metoprolol Tartrate (Metoprolol Tartrate 5 Mg/5 Ml Inj) 5 mg IV Q4H PRN PRN Reason: HR >120 Last Admin: 11/26/22 19:03 Dose: 5 mg Metoprolol Tartrate (Metoprolol Tar 50 Mg Tab) 50 mg PO BID [facility] Last Admin: 12/04/22 21:00 Dose: Not Given Morphine Sulfate (Morphine Sulf 10 Mg/5 Ml [place]) 4 mg PO Q4H PRN PRN Reason: Pain scale 5-7 (Moderate) Last Admin: 12/04/22 18:52 Dose: 4 mg Ondansetron HCl (Ondansetron 4 Mg/2 Ml Vial) 4 mg IV Q4H PRN PRN Reason: NAUSEA / VOMITING Senna (Senosides 8.6 Mg Tab) 8.6 mg PO DAILY [facility] Last Admin: 12/04/22 08:35 Dose: 8.6 mg Sodium Chloride (Sodium Chloride 0.9% 10ml Inj) 10 ml IV UD PRN PRN Reason: Diluant Sodium Chloride (Flush Normal Saline 10 Ml) 10 ml IV BID [facility] Last Admin: 12/04/22 21:12 Dose: 10 ml Tamsulosin HCl (Tamsulosin 0.4 Mg Sr Cap) 0.4 mg PO DAILY [facility] Last Admin: 12/04/22 08:35 Dose: 0.4 mg Microbiology Results 11/12/22 13:25 Blood - Blood Aerobic Blood Culture - Final Serratia Marcescens 11/12/22 13:25 Blood - Blood Blood Culture Gram Stain - Final 11/12/22 13:25 Blood - Blood Anaerobic Blood Culture - Final No growth in 5 days. Assessment/ Plan: Nephrology No dyspnea No chest pain Fatigue and weakness Chronic pain No acute events overnight Vitals, medications, blood work and imaging reviewed in the chart General: In no apparent distress, Cooperative HEENT: Atraumatic Neck: Supple Respiratory: CTA Anteriorly Cardiovascular: No edema, Regular rate/rhythm Gastrointestinal: Non-distended Musculoskeletal: No clubbing, No contractures Integumentary: No rashes, No cyanosis Neurological: Abnormal speech Blood work reviewed in the chart. Imagings Data: [facility] EXAM DESCRIPTION: Dion Single View11/12/2022 1:05 pm CLINICAL HISTORY: Shortness of breath COMPARISON: September 2022 FINDINGS: Moderate to marked bilateral pulmonary opacities. The heart is normal size. Tracheostomy tube in place IMPRESSION: Moderate to marked bilateral pulmonary opacities may indicate pneumonia. EXAM DESCRIPTION: RAD - ENTEROSTOMY TUBE CHECK W/CONTR - 11/13/2022 9:53 am CLINICAL HISTORY: G tube placement confirmation COMPARISON: No comparisons FINDINGS: There were 2 KUB images obtained prior to and subsequent to retrograde injection of contrast via NG tube. The initial image shows G-tube in place in the midline abdomen. Stomach is not dilated. Air is seen in nondilated small bowel. Following retrograde injection, contrast is seen within the contracted gastric lumen. A small amount of contrast has extended into the duodenal C-loop. Focus of contrast along the right lateral margin of the G-tube does not clearly demonstrate gastric mucosal folds. Small amount of extraluminal contrast cannot be excluded. IMPRESSION: Questionable extraluminal contrast along the right lateral margin of the G-tube. CT abdomen examination without oral or IV contrast could be performed for more definitive assessment. LEFT VENTRICULAR WALL MOTION: ANTERIOR/ APICAL AKINESIS DOPPLER/COLOR FLOW: SEE BELOW COMMENTS: SEVERELY DEPRESSED LEFT VENTRICULAR EJECTION FRACTION 20-25%. ANTERIOR/ WIL SEPTAL/ APICAL AKINESIS. MODERATE MITRAL REGURGITATION. Conclusions/Impression: Proteinuria -No NSAIDs Hyponatremia, improving -Maintain nutrition Hypokalemia -Replete potassium prn -Maintain nutrition HypoPO4 -Replete phosphorus prn -Maintain nutrition Chronic Hypotension -IV Albumin prn Systolic CHF, chronic LVEF 20-25% Pulmonary edema -Daily weight Moderate to severe malnutrition with debility -Continue tube feeds Anemia in chronic illness Iron Deficiency 15% -Monitor H&H -Transfuse PRBCs prn -Consider IV iron Multifocal PNA & Aspiration PNA, resolved -Trach status -Continue ventilatory support
[2022-12-05] MEDS: IPRATROPIUM BROM 0.5MG/2.5ML NEB SCH ×4 (02:00→20:45)
[2022-12-05] MEDS: MORPHINE SULF 10 MG/5 ML OSYR PO PRN ×5 (02:23→20:04)
[2022-12-05] MEDS: LORAZEPAM 0.5 MG TABLET PO PRN ×8 (02:23→22:22)
--- NOTE | 2022-12-05 07:38 | P.PN ---
Subjective Date of Service: 12/05/22 Primary Care Provider: Orlin Chief Complaint: Pneumonia Patient lying in bed resting with no major events upon examination. Physical Examination - Vital Signs Temperature: 98.6 F Blood Pressure: 86/60 Pulse: 123 Respirations: 20 Pulse Ox (%): 100 - Physical Exam General: Alert, In no apparent distress Respiratory: Clear to auscultation bilaterally, Other (Trach in place. Dressing clean and dry) Cardiovascular: Normal S1 S2, Edema (right hand 2+ edema; b/l feet 1+) Capillary refill: >2 Seconds Gastrointestinal: Hypoactive (PEG in place) Musculoskeletal: Swelling (right hand 2+ edema; b/l feet 1+), Other (ALS) Integumentary: Tenderness/swelling (right hand 2+ edema; b/l feet 1+), Pressure ulcer (DTI bilateral inferior scapular) Neurological: Other (Trach in place not able to talk. Able to nod head; ALS) Urinary: Sanchez catheter (yellow and clear) - Studies current medications Acetaminophen (Acetaminophen 325 Mg Tablet) 650 mg PO Q6H PRN PRN Reason: TEMP > 100.4' F Last Admin: 12/03/22 15:14 Dose: 650 mg Albuterol Sulfate (Albuterol 2.5 Mg/3 Ml Neb Opal) 2.5 mg NEB [id number] PRN PRN Reason: WHEEZING Amiodarone HCl (Amiodarone Hcl 200 Mg Tab) 200 mg FT BID [facility] Last Admin: 12/04/22 21:08 Dose: 200 mg Aspirin (Aspirin 81 Mg Chewable Tablet) 81 mg PO DAILY [facility] Last Admin: 12/04/22 08:35 Dose: 81 mg Baclofen (Baclofen 10 Mg Tab) 10 mg PO BID [facility] Last Admin: 12/04/22 21:08 Dose: 10 mg Bisacodyl (Bisacodyl 10 Mg Rectal Supp) 10 mg [place] DAILY PRN PRN Reason: CONSTIPATION Enoxaparin Sodium (Enoxaparin 40 Mg/0.4 Ml) 40 mg SQ DAILY 5 PM [facility] Last Admin: 12/04/22 16:11 Dose: 40 mg Gabapentin (Gabapentin 300 Mg Cap) 300 mg PO DAILY [facility] Last Admin: 12/04/22 08:35 Dose: 300 mg Sodium Chloride (Sodium Chloride) 250 mls @ 999 mls/hr IV Q15M PRN PRN Reason: HYPOTENSION Last Admin: 11/12/22 19:55 Dose: 250 mls Ipratropium [place] (Ipratropium Brom 0.5mg/2.5ml) 0.5 mg NEB [id number] [facility] Last Admin: 12/05/22 02:00 Dose: 0.5 mg Levalbuterol HCl (Levalbuterol 0.63 Mg/3 Ml Neb) 0.63 mg NEB [id number] PRN PRN Reason: SHORTNESS OF BREATH Last Admin: 12/01/22 20:00 Dose: 0.63 mg Lorazepam (Lorazepam 0.5 Mg Tablet) 0.5 mg PO Q2H PRN PRN Reason: ANXIETY Last Admin: 12/05/22 06:24 Dose: 0.5 mg Metoprolol Tartrate (Metoprolol Tartrate 5 Mg/5 Ml Inj) 5 mg IV Q4H PRN PRN Reason: HR >120 Last Admin: 11/26/22 19:03 Dose: 5 mg Metoprolol Tartrate (Metoprolol Tar 50 Mg Tab) 50 mg PO BID [facility] Last Admin: 12/04/22 21:00 Dose: Not Given Morphine Sulfate (Morphine Sulf 10 Mg/5 Ml [place]) 4 mg PO Q4H PRN PRN Reason: Pain scale 5-7 (Moderate) Last Admin: 12/05/22 06:24 Dose: 4 mg Ondansetron HCl (Ondansetron 4 Mg/2 Ml Vial) 4 mg IV Q4H PRN PRN Reason: NAUSEA / VOMITING Senna (Senosides 8.6 Mg Tab) 8.6 mg PO DAILY [facility] Last Admin: 12/04/22 08:35 Dose: 8.6 mg Sodium Chloride (Sodium Chloride 0.9% 10ml Inj) 10 ml IV UD PRN PRN Reason: Diluant Sodium Chloride (Flush Normal Saline 10 Ml) 10 ml IV BID [facility] Last Admin: 12/04/22 21:12 Dose: 10 ml Tamsulosin HCl (Tamsulosin 0.4 Mg Sr Cap) 0.4 mg PO DAILY [facility] Last Admin: 12/04/22 08:35 Dose: 0.4 mg Assessment And Plan - Current Problems (Diagnosis) (1) Bacteremia Plan: Cultures: 11/13 BC: Negative 11/13 Sputum: GNR - Serratia Marcsesens (MDR), susceptible to meropenem and Pseudomonas Aeruginosa, possible colonization (patient vital signs table, afebrile) 11/12 BC: GNR - Serratia Marcsesens (MDR) Antibiotics: On IV Meropenem from 11/13-11/28, completed (2) UTI (urinary tract infection) Plan: Cultures: 11/12 UC: Pseudomonas Aeruginosa (MDR), susceptible to Tobramycin and Enterococcus Faecium (MDR), susceptible to Gentamicin and intermittent to Nitrofurantoin Antibiotics: Current on PO Nitrofurantoin, 11/17-11/30, completed Recommendations: Can use acetic acid solution for bladder irrigation when patient spikes fever - Plan - Gram-neg septicemia: Antibiotics completed. - UTI: Antibiotics completed - Pneumonia - Severe protein calorie malnutrition - Atrial fibrillation - HTN (hypertension) - Respiratory muscle paralysis - Hypernatremia - Anemia - ALS (Amyotrophic Lateral Sclerosis) - Pancreatitis Plans to d/c to [facility] The patient continues to be on supportive care. ID will closely monitor the patient with signs of infection with fever and WBC trends Case has been discussed with Dr. Garcia N Physician Review: Patient Assessed, Agree with Above Assessment and Plan
--- NOTE | 2022-12-05 07:57 | P.PN ---
Subjective Date of Service: 12/05/22 Primary Care Provider: Orlin Chief Complaint: Pneumonia Subjective: No new changes Patient has pseudomonas and entrococcus in the urine, Serrtia in the blood and sputum plans for discharge pending arrangement of home vent 11/30 plans for transfer to [facility]. Patient is stable to go once arranged Review of Systems 10-point ROS is otherwise unremarkable Physical Examination - Vital Signs Temperature: 98.6 F Blood Pressure: 86/60 Pulse: 123 Respirations: 20 Pulse Ox (%): 100 - Physical Exam General: Alert, In no apparent distress HEENT: Atraumatic, PERRLA, EOMI Neck: Supple, JVD not distended Respiratory: Clear to auscultation bilaterally, Normal air movement Cardiovascular: Regular rate/rhythm, Normal S1 S2 Gastrointestinal: Normal bowel sounds, No tenderness Musculoskeletal: No tenderness Integumentary: No rashes Neurological: Normal speech, Normal tone, Normal affect Lymphatics: No axilla or inguinal lymphadenopathy Assessment And Plan - Current Problems (Diagnosis) (1) ALS (amyotrophic lateral sclerosis) Current Visit: No Status: Chronic Plan: plans for transfer to a facility in [place] to manage his vent. Will discharge once this is arranged Awaiting transfer to [facility] 12/01 Most likely the patient will be here for the weekends (2) Atrial fibrillation Current Visit: No Status: Acute Plan: Patient is stable. Will continue amiodarone and metoprolol 11/27 increase the metoprolol to 50mg po bid Qualifiers: Atrial fibrillation type: paroxysmal Qualified Code(s): I48.0 - Paroxysmal atrial fibrillation (3) Gram-neg septicemia Current Visit: Yes Status: Resolved Plan: will await antibiotigram to see what antibiotics he needs 11/23 hospice unlikely. will try for home health on this patient (4) Pneumonia Current Visit: Yes Status: Acute Plan: admit to the unit continue fluids and antibiotics. Will await blood cultures. consult to Dr. Beaver 11/[address] Beaver. He needs 2 weeks of meropenemn Qualifiers: Pneumonia type: due to unspecified organism Laterality: bilateral Lung location: lower lobe of lung Qualified Code(s): J18.9 - Pneumonia, unspecified organism (5) HTN (hypertension) Current Visit: No Status: Chronic Plan: He is currently hypotensive. Will hold the diltiazem Qualifiers: Hypertension type: primary hypertension Qualified Code(s): I10 - Essential (primary) hypertension (6) Respiratory muscle paralysis Current Visit: No Status: Chronic Plan: continue chronic vent management (7) Hypernatremia Current Visit: Yes Status: Acute Plan: improving with fluids. Dr. Wheeler is following (8) Anemia Current Visit: No Status: Acute Plan: 11/18 hb is back up to 9. Will keep him on protonix. He is always going to be a high risk for gi bleed. May get an outpatient work up Qualifiers: Anemia type: unspecified type Qualified Code(s): D64.9 - Anemia, unspecified (9) Whole body pain Current Visit: Yes Status: Acute Plan: will try oral morphine. If no relief it may be neuropathic pain. In which case we can try pregabalin or gabapentin - Plan Plans for discharge when ltac arranged Discharge Plan: LTAC Plan to discharge in: 24 Hours - Code Status/Comfort Care Code Status Assessed: No Physician Review: Patient Assessed, Agree with Above Assessment and Plan Critical Care: No Time Spent Managing PTS Care (In Minutes): 20
[2022-12-05] MEDS: SENOSIDES 8.6 MG TAB PO SCH (08:06)
[2022-12-05] MEDS: AMIODARONE HCL 200 MG TAB FT SCH ×2 (08:06→20:03)
[2022-12-05] MEDS: TAMSULOSIN 0.4 MG SR CAP PO SCH (08:06)
[2022-12-05] MEDS: ASPIRIN 81 MG CHEWABLE TABLET PO SCH (08:06)
[2022-12-05] MEDS: GABAPENTIN 300 MG CAP PO SCH (08:06)
[2022-12-05] MEDS: METOPROLOL TAR 50 MG TAB PO SCH ×2 (08:07→20:03)
[2022-12-05] MEDS: BACLOFEN 10 MG TAB PO SCH ×2 (08:08→20:03)
[2022-12-05] MEDS: JEVITY 1.5 CAL LIQUID 1,000 ML BOT FT SCH ×4 (08:08→20:04)
[2022-12-05] MEDS: ENOXAPARIN 40 MG/0.4 ML SQ SCH (16:07)
[2022-12-06] MEDS: MORPHINE SULF 10 MG/5 ML OSYR PO PRN ×4 (00:24→20:52)
[2022-12-06] MEDS: LORAZEPAM 0.5 MG TABLET PO PRN ×7 (00:24→20:53)
[2022-12-06] MEDS: IPRATROPIUM BROM 0.5MG/2.5ML NEB SCH ×4 (01:40→21:20)
[2022-12-06 05:40] LABS: Potassium 4.5 mmol/L (3.5-5.1)
[2022-12-06] MEDS: LEVALBUTEROL 0.63 MG/3 ML NEB NEB PRN (07:30)
[2022-12-06] MEDS: BACLOFEN 10 MG TAB PO SCH ×2 (07:49→20:51)
[2022-12-06] MEDS: METOPROLOL TAR 50 MG TAB PO SCH ×2 (07:49→20:52)
[2022-12-06] MEDS: TAMSULOSIN 0.4 MG SR CAP PO SCH (07:51)
[2022-12-06] MEDS: GABAPENTIN 300 MG CAP PO SCH (07:51)
[2022-12-06] MEDS: AMIODARONE HCL 200 MG TAB FT SCH ×2 (07:51→20:51)
[2022-12-06] MEDS: SENOSIDES 8.6 MG TAB PO SCH (07:51)
[2022-12-06] MEDS: ASPIRIN 81 MG CHEWABLE TABLET PO SCH (07:51)
[2022-12-06] MEDS: JEVITY 1.5 CAL LIQUID 1,000 ML BOT FT SCH ×3 (07:52→16:37)
--- NOTE | 2022-12-06 08:00 | P.PN ---
Subjective Date of Service: 12/06/22 Primary Care Provider: Orlin Chief Complaint: Pneumonia Patient lying in bed resting with no major events upon examination. Physical Examination - Vital Signs Temperature: 97.0 F Blood Pressure: 116/74 Pulse: 123 Respirations: 20 Pulse Ox (%): 100 - Physical Exam General: Alert, In no apparent distress Respiratory: Crackles/rales, Rhonchi/gurgles, Other (Trach in place. Dressing clean and dry) Cardiovascular: No edema, Normal S1 S2 Gastrointestinal: Hypoactive, Other (PEG in place) Musculoskeletal: Other (ALS) Integumentary: Pressure ulcer (DTI bilateral inferior scapular) Neurological: Other (Trach in place not able to talk. Able to nod head; ALS) Urinary: Sanchez catheter (yellow and clear) - Studies current medications Acetaminophen (Acetaminophen 325 Mg Tablet) 650 mg PO Q6H PRN PRN Reason: TEMP > 100.4' F Last Admin: 12/03/22 15:14 Dose: 650 mg Albuterol Sulfate (Albuterol 2.5 Mg/3 Ml Neb Opal) 2.5 mg NEB [id number] PRN PRN Reason: WHEEZING Amiodarone HCl (Amiodarone Hcl 200 Mg Tab) 200 mg FT BID [facility] Last Admin: 12/06/22 07:51 Dose: 200 mg Aspirin (Aspirin 81 Mg Chewable Tablet) 81 mg PO DAILY [facility] Last Admin: 12/06/22 07:51 Dose: 81 mg Baclofen (Baclofen 10 Mg Tab) 10 mg PO BID [facility] Last Admin: 12/06/22 07:49 Dose: 10 mg Bisacodyl (Bisacodyl 10 Mg Rectal Supp) 10 mg [place] DAILY PRN PRN Reason: CONSTIPATION Enoxaparin Sodium (Enoxaparin 40 Mg/0.4 Ml) 40 mg SQ DAILY 5 PM [facility] Last Admin: 12/05/22 16:07 Dose: 40 mg Gabapentin (Gabapentin 300 Mg Cap) 300 mg PO DAILY [facility] Last Admin: 12/06/22 07:51 Dose: 300 mg Sodium Chloride (Sodium Chloride) 250 mls @ 999 mls/hr IV Q15M PRN PRN Reason: HYPOTENSION Last Admin: 11/12/22 19:55 Dose: 250 mls Ipratropium [place] (Ipratropium Brom 0.5mg/2.5ml) 0.5 mg NEB [id number] [facility] Last Admin: 12/06/22 01:40 Dose: 0.5 mg Levalbuterol HCl (Levalbuterol 0.63 Mg/3 Ml Neb) 0.63 mg NEB [id number] PRN PRN Reason: SHORTNESS OF BREATH Last Admin: 12/01/22 20:00 Dose: 0.63 mg Lorazepam (Lorazepam 0.5 Mg Tablet) 0.5 mg PO Q2H PRN PRN Reason: ANXIETY Last Admin: 12/06/22 07:49 Dose: 0.5 mg Metoprolol Tartrate (Metoprolol Tartrate 5 Mg/5 Ml Inj) 5 mg IV Q4H PRN PRN Reason: HR >120 Last Admin: 11/26/22 19:03 Dose: 5 mg Metoprolol Tartrate (Metoprolol Tar 50 Mg Tab) 50 mg PO BID [facility] Last Admin: 12/06/22 07:49 Dose: 50 mg Morphine Sulfate (Morphine Sulf 10 Mg/5 Ml [place]) 4 mg PO Q4H PRN PRN Reason: Pain scale 5-7 (Moderate) Last Admin: 12/06/22 04:24 Dose: 4 mg Ondansetron HCl (Ondansetron 4 Mg/2 Ml Vial) 4 mg IV Q4H PRN PRN Reason: NAUSEA / VOMITING Senna (Senosides 8.6 Mg Tab) 8.6 mg PO DAILY [facility] Last Admin: 12/06/22 07:51 Dose: 8.6 mg Sodium Chloride (Sodium Chloride 0.9% 10ml Inj) 10 ml IV UD PRN PRN Reason: Diluant Sodium Chloride (Flush Normal Saline 10 Ml) 10 ml IV BID [facility] Last Admin: 12/05/22 20:03 Dose: 10 ml Tamsulosin HCl (Tamsulosin 0.4 Mg Sr Cap) 0.4 mg PO DAILY [facility] Last Admin: 12/06/22 07:51 Dose: 0.4 mg Assessment And Plan - Current Problems (Diagnosis) (1) Bacteremia Plan: Cultures: 11/13 BC: Negative 11/13 Sputum: GNR - Serratia Marcsesens (MDR), susceptible to meropenem and Pseudomonas Aeruginosa, possible colonization (patient vital signs table, afebrile) 11/12 BC: GNR - Serratia Marcsesens (MDR) Antibiotics: On IV Meropenem from 11/13-11/28, completed (2) UTI (urinary tract infection) Plan: Cultures: 11/12 UC: Pseudomonas Aeruginosa (MDR), susceptible to Tobramycin and Enterococcus Faecium (MDR), susceptible to Gentamicin and intermittent to Nitrofurantoin Antibiotics: Current on PO Nitrofurantoin, 11/17-11/30, completed Recommendations: Can use acetic acid solution for bladder irrigation when patient spikes fever - Plan - Gram-neg septicemia: Antibiotics completed. - UTI: Antibiotics completed - Pneumonia - Severe protein calorie malnutrition - Atrial fibrillation - HTN (hypertension) - Respiratory muscle paralysis - Hypernatremia - Anemia - ALS (Amyotrophic Lateral Sclerosis) - Pancreatitis Plans to d/c to [facility] The patient continues to be on supportive care. ID will closely monitor the patient with signs of infection with fever and WBC trends Case has been discussed with Dr. Garcia N Physician Review: Patient Assessed, Agree with Above Assessment and Plan
--- NOTE | 2022-12-06 12:36 | P.PN ---
Subjective Date of Service: 12/06/22 Primary Care Provider: Orlin Chief Complaint: Pneumonia Subjective: No new changes Patient has pseudomonas and entrococcus in the urine, Serrtia in the blood and sputum plans for discharge pending arrangement of home vent 11/30 plans for transfer to [facility]. Patient is stable to go once arranged Review of Systems 10-point ROS is otherwise unremarkable Physical Examination - Vital Signs Temperature: 97.0 F Blood Pressure: 116/74 Pulse: 123 Respirations: 20 Pulse Ox (%): 100 - Physical Exam General: Alert, In no apparent distress HEENT: Atraumatic, PERRLA, EOMI Neck: Supple, JVD not distended Respiratory: Clear to auscultation bilaterally, Normal air movement Cardiovascular: Regular rate/rhythm, Normal S1 S2 Gastrointestinal: Normal bowel sounds, No tenderness Musculoskeletal: No tenderness Integumentary: No rashes Neurological: Normal speech, Normal tone, Normal affect Lymphatics: No axilla or inguinal lymphadenopathy Assessment And Plan - Current Problems (Diagnosis) (1) ALS (amyotrophic lateral sclerosis) Current Visit: No Status: Chronic Plan: plans for transfer to a facility in [place] to manage his vent. Will discharge once this is arranged Awaiting transfer to [facility] 12/01 Most likely the patient will be here for the weekends (2) Atrial fibrillation Current Visit: No Status: Acute Plan: Patient is stable. Will continue amiodarone and metoprolol 11/27 increase the metoprolol to 50mg po bid Qualifiers: Atrial fibrillation type: paroxysmal Qualified Code(s): I48.0 - Paroxysmal atrial fibrillation (3) Gram-neg septicemia Current Visit: Yes Status: Resolved Plan: will await antibiotigram to see what antibiotics he needs 11/23 hospice unlikely. will try for home health on this patient (4) Pneumonia Current Visit: Yes Status: Acute Plan: admit to the unit continue fluids and antibiotics. Will await blood cultures. consult to Dr. Beaver 11/[address] Beaver. He needs 2 weeks of meropenemn Qualifiers: Pneumonia type: due to unspecified organism Laterality: bilateral Lung location: lower lobe of lung Qualified Code(s): J18.9 - Pneumonia, unspecified organism (5) HTN (hypertension) Current Visit: No Status: Chronic Plan: He is currently hypotensive. Will hold the diltiazem Qualifiers: Hypertension type: primary hypertension Qualified Code(s): I10 - Essential (primary) hypertension (6) Respiratory muscle paralysis Current Visit: No Status: Chronic Plan: continue chronic vent management (7) Hypernatremia Current Visit: Yes Status: Acute Plan: improving with fluids. Dr. Wheeler is following (8) Anemia Current Visit: No Status: Acute Plan: 11/18 hb is back up to 9. Will keep him on protonix. He is always going to be a high risk for gi bleed. May get an outpatient work up Qualifiers: Anemia type: unspecified type Qualified Code(s): D64.9 - Anemia, unspecified (9) Whole body pain Current Visit: Yes Status: Acute Plan: will try oral morphine. If no relief it may be neuropathic pain. In which case we can try pregabalin or gabapentin - Plan Plans for discharge when ltac arranged Discharge Plan: LTAC Plan to discharge in: 24 Hours - Code Status/Comfort Care Code Status Assessed: No Physician Review: Patient Assessed, Agree with Above Assessment and Plan Critical Care: No Time Spent Managing PTS Care (In Minutes): 20
[2022-12-06] MEDS: ENOXAPARIN 40 MG/0.4 ML SQ SCH (16:36)
--- NOTE | 2022-12-06 20:26 | P.PN ---
Date of Service: 12/06/22 Vital Signs Temp Pulse Resp BP Pulse Ox 98.3 F 124 H 20 95/62 100 12/06/22 16:00 12/06/22 20:00 12/06/22 20:00 12/06/22 20:00 12/06/22 20:00 Medications Acetaminophen (Acetaminophen 325 Mg Tablet) 650 mg PO Q6H PRN PRN Reason: TEMP > 100.4' F Last Admin: 12/03/22 15:14 Dose: 650 mg Albuterol Sulfate (Albuterol 2.5 Mg/3 Ml Neb Opal) 2.5 mg NEB [id number] PRN PRN Reason: WHEEZING Amiodarone HCl (Amiodarone Hcl 200 Mg Tab) 200 mg FT BID [facility] Last Admin: 12/06/22 07:51 Dose: 200 mg Aspirin (Aspirin 81 Mg Chewable Tablet) 81 mg PO DAILY [facility] Last Admin: 12/06/22 07:51 Dose: 81 mg Baclofen (Baclofen 10 Mg Tab) 10 mg PO BID [facility] Last Admin: 12/06/22 07:49 Dose: 10 mg Bisacodyl (Bisacodyl 10 Mg Rectal Supp) 10 mg [place] DAILY PRN PRN Reason: CONSTIPATION Enoxaparin Sodium (Enoxaparin 40 Mg/0.4 Ml) 40 mg SQ DAILY 5 PM [facility] Last Admin: 12/06/22 16:36 Dose: 40 mg Gabapentin (Gabapentin 300 Mg Cap) 300 mg PO DAILY [facility] Last Admin: 12/06/22 07:51 Dose: 300 mg Sodium Chloride (Sodium Chloride) 250 mls @ 999 mls/hr IV Q15M PRN PRN Reason: HYPOTENSION Last Admin: 11/12/22 19:55 Dose: 250 mls Ipratropium [place] (Ipratropium Brom 0.5mg/2.5ml) 0.5 mg NEB [id number] [facility] Last Admin: 12/06/22 14:50 Dose: 0.5 mg Levalbuterol HCl (Levalbuterol 0.63 Mg/3 Ml Neb) 0.63 mg NEB [id number] PRN PRN Reason: SHORTNESS OF BREATH Last Admin: 12/06/22 07:30 Dose: 0.63 mg Lorazepam (Lorazepam 0.5 Mg Tablet) 0.5 mg PO Q2H PRN PRN Reason: ANXIETY Last Admin: 12/06/22 17:26 Dose: 0.5 mg Metoprolol Tartrate (Metoprolol Tartrate 5 Mg/5 Ml Inj) 5 mg IV Q4H PRN PRN Reason: HR >120 Last Admin: 11/26/22 19:03 Dose: 5 mg Metoprolol Tartrate (Metoprolol Tar 50 Mg Tab) 50 mg PO BID [facility] Last Admin: 12/06/22 07:49 Dose: 50 mg Morphine Sulfate (Morphine Sulf 10 Mg/5 Ml [place]) 4 mg PO Q4H PRN PRN Reason: Pain scale 5-7 (Moderate) Last Admin: 12/06/22 11:51 Dose: 4 mg Ondansetron HCl (Ondansetron 4 Mg/2 Ml Vial) 4 mg IV Q4H PRN PRN Reason: NAUSEA / VOMITING Senna (Senosides 8.6 Mg Tab) 8.6 mg PO DAILY [facility] Last Admin: 12/06/22 07:51 Dose: 8.6 mg Sodium Chloride (Sodium Chloride 0.9% 10ml Inj) 10 ml IV UD PRN PRN Reason: Diluant Sodium Chloride (Flush Normal Saline 10 Ml) 10 ml IV BID [facility] Last Admin: 12/06/22 09:00 Dose: 10 ml Tamsulosin HCl (Tamsulosin 0.4 Mg Sr Cap) 0.4 mg PO DAILY [facility] Last Admin: 12/06/22 07:51 Dose: 0.4 mg Microbiology Results 11/12/22 13:25 Blood - Blood Aerobic Blood Culture - Final Serratia Marcescens 11/12/22 13:25 Blood - Blood Blood Culture Gram Stain - Final 11/12/22 13:25 Blood - Blood Anaerobic Blood Culture - Final No growth in 5 days. Assessment/ Plan: Nephrology No dyspnea No chest pain Fatigue and weakness Chronic pain No acute events overnight Vitals, medications, blood work and imaging reviewed in the chart General: In no apparent distress, Cooperative HEENT: Atraumatic Neck: Supple Respiratory: CTA Anteriorly Cardiovascular: No edema, Regular rate/rhythm Gastrointestinal: Non-distended Musculoskeletal: No clubbing, No contractures Integumentary: No rashes, No cyanosis Neurological: Abnormal speech Blood work reviewed in the chart. Imagings Data: EXAM DESCRIPTION: MARIA LUISAFelipe Single View11/12/2022 1:05 pm CLINICAL HISTORY: Shortness of breath COMPARISON: September 2022 FINDINGS: Moderate to marked bilateral pulmonary opacities. The heart is normal size. Tracheostomy tube in place IMPRESSION: Moderate to marked bilateral pulmonary opacities may indicate pneumo janet. EXAM DESCRIPTION: RAD - ENTEROSTOMY TUBE CHECK W/CONTR - 11/13/2022 9:53 am CLINICAL HISTORY: G tube placement confirmation COMPARISON: No comparisons FINDINGS: There were 2 KUB images obtained prior to and subsequent to retrograde injection of contrast via NG tube. The initial image shows G-tube in place in the midline abdomen. Stomach is not dilated. Air is seen in nondilated small bowel. Following retrograde injection, contrast is seen within the contracted gastric lumen. A small amount of contrast has extended into the duodenal C-loop. Focus of contrast along the right lateral margin of the G-tube does not clearly demonstrate gastric mucosal folds. Small amount of extraluminal contrast cannot be excluded. IMPRESSION: Questionable extraluminal contrast along the right lateral margin of the G-tube. CT abdomen examination without oral or IV contrast could be performed for more definitive assessment. LEFT VENTRICULAR WALL MOTION: ANTERIOR/ APICAL AKINESIS DOPPLER/COLOR FLOW: SEE BELOW COMMENTS: SEVERELY DEPRESSED LEFT VENTRICULAR EJECTION FRACTION 20-25%. ANTERIOR/ WIL SEPTAL/ APICAL AKINESIS. MODERATE MITRAL REGURGITATION. Conclusions/Impression: Proteinuria -No NSAIDs Hyponatremia, improving -Maintain nutrition Hypokalemia -Replete potassium prn -Maintain nutrition HypoPO4 -Replete phosphorus prn -Maintain nutrition Chronic Hypotension -IV Albumin prn Systolic CHF, chronic LVEF 20-25% Pulmonary edema -Daily weight Moderate to severe malnutrition with debility -Continue tube feeds Anemia in chronic illness Iron Deficiency 15% -Monitor H&H -Transfuse PRBCs prn -Consider IV iron Multifocal PNA & Aspiration PNA, resolved -Trach status -Continue ventilatory support
[2022-12-07 02:04] VITALS: O2SAT 100
[2022-12-07] MEDS: IPRATROPIUM BROM 0.5MG/2.5ML NEB SCH ×4 (02:35→19:40)
[2022-12-07] MEDS: LORAZEPAM 0.5 MG TABLET PO PRN ×4 (07:45→21:29)
[2022-12-07] MEDS: GABAPENTIN 300 MG CAP PO SCH (07:46)
[2022-12-07] MEDS: ASPIRIN 81 MG CHEWABLE TABLET PO SCH (07:46)
[2022-12-07] MEDS: AMIODARONE HCL 200 MG TAB FT SCH ×2 (07:46→20:24)
[2022-12-07] MEDS: MORPHINE SULF 10 MG/5 ML OSYR PO PRN ×3 (07:47→18:32)
[2022-12-07] MEDS: JEVITY 1.5 CAL LIQUID 1,000 ML BOT FT SCH ×5 (07:48→20:40)
[2022-12-07] MEDS: BACLOFEN 10 MG TAB PO SCH ×2 (07:50→20:24)
[2022-12-07] MEDS: TAMSULOSIN 0.4 MG SR CAP PO SCH (08:05)
[2022-12-07] MEDS: METOPROLOL TAR 50 MG TAB PO SCH ×3 (08:06→21:30)
[2022-12-07] MEDS: SENOSIDES 8.6 MG TAB PO SCH (09:00)
--- NOTE | 2022-12-07 13:16 | P.PN ---
Subjective Date of Service: 12/07/22 Primary Care Provider: Orlin Chief Complaint: Pneumonia Subjective: No new changes Patient has pseudomonas and entrococcus in the urine, Serrtia in the blood and sputum plans for discharge pending arrangement of home vent 11/30 plans for transfer to [facility]. Patient is stable to go once arranged Review of Systems 10-point ROS is otherwise unremarkable Physical Examination - Vital Signs Temperature: 97.5 F Blood Pressure: 96/68 Pulse: 118 Respirations: 18 Pulse Ox (%): 100 - Physical Exam General: Alert, In no apparent distress HEENT: Atraumatic, PERRLA, EOMI Neck: Supple, JVD not distended Respiratory: Clear to auscultation bilaterally, Normal air movement Cardiovascular: Regular rate/rhythm, Normal S1 S2 Gastrointestinal: Normal bowel sounds, No tenderness Musculoskeletal: No tenderness Integumentary: No rashes Neurological: Normal speech, Normal tone, Normal affect Lymphatics: No axilla or inguinal lymphadenopathy Assessment And Plan - Current Problems (Diagnosis) (1) ALS (amyotrophic lateral sclerosis) Current Visit: No Status: Chronic Plan: plans for transfer to a facility in [place] to manage his vent. Will discharge once this is arranged Awaiting transfer to [facility] 12/01 Most likely the patient will be here for the weekends (2) Atrial fibrillation Current Visit: No Status: Acute Plan: Patient is stable. Will continue amiodarone and metoprolol 11/27 increase the metoprolol to 50mg po bid Qualifiers: Atrial fibrillation type: paroxysmal Qualified Code(s): I48.0 - Paroxysmal atrial fibrillation (3) Gram-neg septicemia Current Visit: Yes Status: Resolved Plan: will await antibiotigram to see what antibiotics he needs 11/23 hospice unlikely. will try for home health on this patient (4) Pneumonia Current Visit: Yes Status: Acute Plan: admit to the unit continue fluids and antibiotics. Will await blood cultures. consult to Dr. Beaver 11/[address] Beaver. He needs 2 weeks of meropenemn Qualifiers: Pneumonia type: due to unspecified organism Laterality: bilateral Lung location: lower lobe of lung Qualified Code(s): J18.9 - Pneumonia, unspecified organism (5) HTN (hypertension) Current Visit: No Status: Chronic Plan: He is currently hypotensive. Will hold the diltiazem Qualifiers: Hypertension type: primary hypertension Qualified Code(s): I10 - Essential (primary) hypertension (6) Respiratory muscle paralysis Current Visit: No Status: Chronic Plan: continue chronic vent management (7) Whole body pain Current Visit: Yes Status: Acute Plan: will try oral morphine. If no relief it may be neuropathic pain. In which case we can try pregabalin or gabapentin - Plan Plans for discharge when ltac arranged Discharge Plan: LTAC Plan to discharge in: 24 Hours Physician Review: Patient Assessed, Agree with Above Assessment and Plan Critical Care: No Time Spent Managing PTS Care (In Minutes): 20
--- NOTE | 2022-12-07 16:26 | PN ---
Subjective: Patient lying in bed. No new acute event. Continue to be on vent with trach in place. Objective: Lungs: Basal crackles. Heart: S1, S2. Regular. Abdomen: Soft, nontender. Bowel sounds present. Extremity: No edema. Vital Signs: Reviewed. Laboratory Data: Reviewed. Assessment And Plan: Chronic respiratory failure, status post treatment for urinary tract infection and pneumonia. Continue supportive care and pulmonary hygiene. We will follow patient as needed. NF/MODL Voice ID: [id number] Report ID: [id number]
[2022-12-07] MEDS: ENOXAPARIN 40 MG/0.4 ML SQ SCH (16:39)
[2022-12-08] MEDS: MORPHINE SULF 10 MG/5 ML OSYR PO PRN ×6 (00:26→21:40)
[2022-12-08] MEDS: LORAZEPAM 0.5 MG TABLET PO PRN ×10 (00:27→23:57)
[2022-12-08] MEDS: IPRATROPIUM BROM 0.5MG/2.5ML NEB SCH ×4 (01:43→19:20)
[2022-12-08 05:49] VITALS: BMI 21.4
[2022-12-08] MEDS: AMIODARONE HCL 200 MG TAB FT SCH ×2 (08:19→20:26)
[2022-12-08] MEDS: ASPIRIN 81 MG CHEWABLE TABLET PO SCH (08:19)
[2022-12-08] MEDS: SENOSIDES 8.6 MG TAB PO SCH (08:19)
[2022-12-08] MEDS: GABAPENTIN 300 MG CAP PO SCH (08:19)
[2022-12-08] MEDS: BACLOFEN 10 MG TAB PO SCH ×2 (08:20→20:26)
[2022-12-08] MEDS: JEVITY 1.5 CAL LIQUID 1,000 ML BOT FT SCH ×4 (08:21→20:28)
[2022-12-08] MEDS: METOPROLOL TAR 50 MG TAB PO SCH ×2 (09:00→21:00)
[2022-12-08] MEDS: TAMSULOSIN 0.4 MG SR CAP PO SCH (09:00)
--- NOTE | 2022-12-08 15:40 | P.PN ---
Subjective Date of Service: 12/08/22 Primary Care Provider: Orlin Chief Complaint: Pneumonia Subjective: No new changes Patient has pseudomonas and entrococcus in the urine, Serrtia in the blood and sputum plans for discharge pending arrangement of home vent 11/30 plans for transfer to [facility]. Patient is stable to go once arranged Review of Systems 10-point ROS is otherwise unremarkable Physical Examination - Vital Signs Temperature: 96.6 F Blood Pressure: 137/80 Pulse: 98 Respirations: 20 Pulse Ox (%): 100 - Physical Exam General: Alert, In no apparent distress HEENT: Atraumatic, PERRLA, EOMI Neck: Supple, JVD not distended Respiratory: Clear to auscultation bilaterally, Normal air movement Cardiovascular: Regular rate/rhythm, Normal S1 S2 Gastrointestinal: Normal bowel sounds, No tenderness Musculoskeletal: No tenderness Integumentary: No rashes Neurological: Normal speech, Normal tone, Normal affect Lymphatics: No axilla or inguinal lymphadenopathy Assessment And Plan - Current Problems (Diagnosis) (1) ALS (amyotrophic lateral sclerosis) Current Visit: No Status: Chronic Plan: plans for transfer to a facility in [place] to manage his vent. Will discharge once this is arranged Awaiting transfer to [facility] 12/01 Most likely the patient will be here for the weekends (2) Atrial fibrillation Current Visit: No Status: Acute Plan: Patient is stable. Will continue amiodarone and metoprolol 11/27 increase the metoprolol to 50mg po bid Qualifiers: Atrial fibrillation type: paroxysmal Qualified Code(s): I48.0 - Paroxysmal atrial fibrillation (3) Gram-neg septicemia Current Visit: Yes Status: Resolved Plan: will await antibiotigram to see what antibiotics he needs 11/23 hospice unlikely. will try for home health on this patient (4) Pneumonia Current Visit: Yes Status: Acute Plan: admit to the unit continue fluids and antibiotics. Will await blood cultures. consult to Dr. Beaver 11/[address] Beaver. He needs 2 weeks of meropenemn Qualifiers: Pneumonia type: due to unspecified organism Laterality: bilateral Lung location: lower lobe of lung Qualified Code(s): J18.9 - Pneumonia, unspecified organism (5) HTN (hypertension) Current Visit: No Status: Chronic Plan: He is currently hypotensive. Will hold the diltiazem Qualifiers: Hypertension type: primary hypertension Qualified Code(s): I10 - Essential (primary) hypertension (6) Respiratory muscle paralysis Current Visit: No Status: Chronic Plan: continue chronic vent management (7) Whole body pain Current Visit: Yes Status: Acute Plan: will try oral morphine. If no relief it may be neuropathic pain. In which case we can try pregabalin or gabapentin - Plan Plans for discharge when ltac arranged Discharge Plan: Home Plan to discharge in: 24 Hours - Code Status/Comfort Care Code Status Assessed: No Physician Review: Patient Assessed, Agree with Above Assessment and Plan Critical Care: No Time Spent Managing PTS Care (In Minutes): 20
[2022-12-08] MEDS: ENOXAPARIN 40 MG/0.4 ML SQ SCH (17:15)
--- NOTE | 2022-12-08 22:00 | P.PN ---
Date of Service: 12/08/22 Vital Signs Temp Pulse Resp BP Pulse Ox 96.6 F L 69 20 94/64 100 12/08/22 15:40 12/08/22 21:00 12/08/22 18:00 12/08/22 21:00 12/08/22 18:00 Medications Acetaminophen (Acetaminophen 325 Mg Tablet) 650 mg PO Q6H PRN PRN Reason: TEMP > 100.4' F Last Admin: 12/03/22 15:14 Dose: 650 mg Albuterol Sulfate (Albuterol 2.5 Mg/3 Ml Neb Opal) 2.5 mg NEB [id number] PRN PRN Reason: WHEEZING Amiodarone HCl (Amiodarone Hcl 200 Mg Tab) 200 mg FT BID [facility] Last Admin: 12/08/22 20:26 Dose: 200 mg Aspirin (Aspirin 81 Mg Chewable Tablet) 81 mg PO DAILY [facility] Last Admin: 12/08/22 08:19 Dose: 81 mg Baclofen (Baclofen 10 Mg Tab) 10 mg PO BID [facility] Last Admin: 12/08/22 20:26 Dose: 10 mg Bisacodyl (Bisacodyl 10 Mg Rectal Supp) 10 mg [place] DAILY PRN PRN Reason: CONSTIPATION Enoxaparin Sodium (Enoxaparin 40 Mg/0.4 Ml) 40 mg SQ DAILY 5 PM [facility] Last Admin: 12/08/22 17:15 Dose: 40 mg Gabapentin (Gabapentin 300 Mg Cap) 300 mg PO DAILY [facility] Last Admin: 12/08/22 08:19 Dose: 300 mg Sodium Chloride (Sodium Chloride) 250 mls @ 999 mls/hr IV Q15M PRN PRN Reason: HYPOTENSION Last Admin: 11/12/22 19:55 Dose: 250 mls Ipratropium [place] (Ipratropium Brom 0.5mg/2.5ml) 0.5 mg NEB [id number] [facility] Last Admin: 12/08/22 19:20 Dose: 0.5 mg Lorazepam (Lorazepam 0.5 Mg Tablet) 0.5 mg PO Q2H PRN PRN Reason: ANXIETY Last Admin: 12/08/22 21:40 Dose: 0.5 mg Metoprolol Tartrate (Metoprolol Tartrate 5 Mg/5 Ml Inj) 5 mg IV Q4H PRN PRN Reason: HR >120 Last Admin: 11/26/22 19:03 Dose: 5 mg Metoprolol Tartrate (Metoprolol Tar 50 Mg Tab) 50 mg PO BID [facility] Last Admin: 12/08/22 21:00 Dose: Not Given Morphine Sulfate (Morphine Sulf 10 Mg/5 Ml [place]) 4 mg PO Q4H PRN PRN Reason: Pain scale 5-7 (Moderate) Last Admin: 12/08/22 21:40 Dose: 4 mg Ondansetron HCl (Ondansetron 4 Mg/2 Ml Vial) 4 mg IV Q4H PRN PRN Reason: NAUSEA / VOMITING Senna (Senosides 8.6 Mg Tab) 8.6 mg PO DAILY [facility] Last Admin: 12/08/22 08:19 Dose: 8.6 mg Sodium Chloride (Sodium Chloride 0.9% 10ml Inj) 10 ml IV UD PRN PRN Reason: Diluant Sodium Chloride (Flush Normal Saline 10 Ml) 10 ml IV BID [facility] Last Admin: 12/08/22 20:27 Dose: 10 ml Tamsulosin HCl (Tamsulosin 0.4 Mg Sr Cap) 0.4 mg PO DAILY [facility] Last Admin: 12/08/22 09:00 Dose: Not Given Microbiology Results 11/12/22 13:25 Blood - Blood Aerobic Blood Culture - Final Serratia Marcescens 11/12/22 13:25 Blood - Blood Blood Culture Gram Stain - Final 11/12/22 13:25 Blood - Blood Anaerobic Blood Culture - Final No growth in 5 days. Assessment/ Plan: Nephrology No dyspnea No chest pain Fatigue and weakness Chronic pain No acute events overnight Vitals, medications, blood work and imaging reviewed in the chart General: In no apparent distress, Cooperative HEENT: Atraumatic Neck: Supple Respiratory: CTA Anteriorly Cardiovascular: No edema, Regular rate/rhythm Gastrointestinal: Non-distended Musculoskeletal: No clubbing, No contractures Integumentary: No rashes, No cyanosis Neurological: Abnormal speech Blood work reviewed in the chart. Imagings Data: EXAM DESCRIPTION: Gersoncelestine Single View11/12/2022 1:05 pm CLINICAL HISTORY: Shortness of breath COMPARISON: September 2022 FINDINGS: Moderate to marked bilateral pulmonary opacities. The heart is normal size. Tracheostomy tube in place IMPRESSION: Moderate to marked bilateral pulmonary opacities may indicate pneumonia. EXAM DESCRIPTION: RAD - ENTEROSTOMY TUBE CHECK W/CONTR - 11/13/2022 9:53 am CLINICAL HISTORY: G tube placement confirmation COMPARISON: No comparisons FINDINGS: There were 2 KUB images obtained prior to and subsequent to retrograde injection of contrast via NG tube. The initial image shows G-tube in place in the midline abdomen. Stomach is not dilated. Air is seen in nondilated small bowel. Following retrograde injection, contrast is seen within the contracted gastric lumen. A small amount of contrast has extended into the duodenal C-loop. Focus of contrast along the right lateral margin of the G-tube does not clearly demonstrate gastric mucosal folds. Small amount of extraluminal contrast cannot be excluded. IMPRESSION: Questionable extraluminal contrast along the right lateral margin of the G-tube. CT abdomen examination without oral or IV contrast could be performed for more definitive assessment. LEFT VENTRICULAR WALL MOTION: ANTERIOR/ APICAL AKINESIS DOPPLER/COLOR FLOW: SEE BELOW COMMENTS: SEVERELY DEPRESSED LEFT VENTRICULAR EJECTION FRACTION 20-25%. ANTERIOR/ WIL SEPTAL/ APICAL AKINESIS. MODERATE MITRAL REGURGITATION. Conclusions/Impression: Proteinuria -No NSAIDs Hyponatremia, improving -Maintain nutrition Hypokalemia -Replete potassium prn -Maintain nutrition HypoPO4 -Replete phosphorus prn -Maintain nutrition Chronic Hypotension -IV Albumin prn Systolic CHF, chronic LVEF 20-25% Pulmonary edema -Daily weight Moderate to severe malnutrition with debility -Continue tube feeds Anemia in chronic illness Iron Deficiency 15% -Monitor H&H -Transfuse PRBCs prn -Consider IV iron Multifocal PNA & Aspiration PNA, resolved -Trach status -Continue ventilatory support
[2022-12-09] MEDS: IPRATROPIUM BROM 0.5MG/2.5ML NEB SCH ×4 (02:05→20:00)
[2022-12-09] MEDS: LORAZEPAM 0.5 MG TABLET PO PRN ×6 (04:33→23:18)
[2022-12-09] MEDS: MORPHINE SULF 10 MG/5 ML OSYR PO PRN ×4 (04:33→19:59)
[2022-12-09] MEDS: ASPIRIN 81 MG CHEWABLE TABLET PO SCH (08:01)
[2022-12-09] MEDS: METOPROLOL TAR 50 MG TAB PO SCH ×2 (08:01→20:00)
[2022-12-09] MEDS: SENOSIDES 8.6 MG TAB PO SCH (08:02)
[2022-12-09] MEDS: BACLOFEN 10 MG TAB PO SCH ×2 (08:02→19:59)
[2022-12-09] MEDS: GABAPENTIN 300 MG CAP PO SCH (08:02)
[2022-12-09] MEDS: AMIODARONE HCL 200 MG TAB FT SCH ×2 (08:02→19:58)
[2022-12-09] MEDS: JEVITY 1.5 CAL LIQUID 1,000 ML BOT FT SCH ×4 (08:03→19:58)
[2022-12-09] MEDS: TAMSULOSIN 0.4 MG SR CAP PO SCH (08:05)
--- NOTE | 2022-12-09 14:19 | P.PN ---
Subjective Date of Service: 12/09/22 Primary Care Provider: Orlin Chief Complaint: Pneumonia Subjective: No new changes Patient has pseudomonas and entrococcus in the urine, Serrtia in the blood and sputum plans for discharge pending arrangement of home vent 11/30 plans for transfer to [facility]. Patient is stable to go once arranged Review of Systems 10-point ROS is otherwise unremarkable Physical Examination - Vital Signs Temperature: 96.5 F Blood Pressure: 93/63 Pulse: 79 Respirations: 20 Pulse Ox (%): 100 - Physical Exam General: Alert, In no apparent distress HEENT: Atraumatic, PERRLA, EOMI Neck: Supple, JVD not distended Respiratory: Clear to auscultation bilaterally, Normal air movement Cardiovascular: Regular rate/rhythm, Normal S1 S2 Gastrointestinal: Normal bowel sounds, No tenderness Musculoskeletal: No tenderness Integumentary: No rashes Neurological: Normal speech, Normal tone, Normal affect Lymphatics: No axilla or inguinal lymphadenopathy Assessment And Plan - Current Problems (Diagnosis) (1) ALS (amyotrophic lateral sclerosis) Current Visit: No Status: Chronic Plan: plans for transfer to a facility in [place] to manage his vent. Will discharge once this is arranged Awaiting transfer to [facility] 12/01 Most likely the patient will be here for the weekends (2) Atrial fibrillation Current Visit: No Status: Acute Plan: Patient is stable. Will continue amiodarone and metoprolol 11/27 increase the metoprolol to 50mg po bid Qualifiers: Atrial fibrillation type: paroxysmal Qualified Code(s): I48.0 - Paroxysmal atrial fibrillation (3) Gram-neg septicemia Current Visit: Yes Status: Resolved Plan: will await antibiotigram to see what antibiotics he needs 11/23 hospice unlikely. will try for home health on this patient (4) Pneumonia Current Visit: Yes Status: Acute Plan: admit to the unit continue fluids and antibiotics. Will await blood cultures. consult to Dr. Beaver 11/[address] Beaver. He needs 2 weeks of meropenemn Qualifiers: Pneumonia type: due to unspecified organism Laterality: bilateral Lung location: lower lobe of lung Qualified Code(s): J18.9 - Pneumonia, unspecified organism (5) HTN (hypertension) Current Visit: No Status: Chronic Plan: He is currently hypotensive. Will hold the diltiazem Qualifiers: Hypertension type: primary hypertension Qualified Code(s): I10 - Essential (primary) hypertension (6) Respiratory muscle paralysis Current Visit: No Status: Chronic Plan: continue chronic vent management (7) Whole body pain Current Visit: Yes Status: Acute Plan: will try oral morphine. If no relief it may be neuropathic pain. In which case we can try pregabalin or gabapentin - Plan Plans for discharge when ltac arranged Discharge Plan: Home Plan to discharge in: 24 Hours - Code Status/Comfort Care Code Status Assessed: No Physician Review: Patient Assessed, Agree with Above Assessment and Plan Critical Care: No Time Spent Managing PTS Care (In Minutes): 20
[2022-12-09] MEDS: ENOXAPARIN 40 MG/0.4 ML SQ SCH (17:43)
--- NOTE | 2022-12-09 22:52 | P.PN ---
Date of Service: 12/09/22 Vital Signs Temp Pulse Resp BP Pulse Ox 96.7 F L 75 20 108/68 99 12/09/22 16:00 12/09/22 20:00 12/09/22 19:00 12/09/22 20:00 12/09/22 18:00 Medications Acetaminophen (Acetaminophen 325 Mg Tablet) 650 mg PO Q6H PRN PRN Reason: TEMP > 100.4' F Last Admin: 12/03/22 15:14 Dose: 650 mg Albuterol Sulfate (Albuterol 2.5 Mg/3 Ml Neb Opal) 2.5 mg NEB [id number] PRN PRN Reason: WHEEZING Amiodarone HCl (Amiodarone Hcl 200 Mg Tab) 200 mg FT BID [facility] Last Admin: 12/09/22 19:58 Dose: 200 mg Aspirin (Aspirin 81 Mg Chewable Tablet) 81 mg PO DAILY [facility] Last Admin: 12/09/22 08:01 Dose: 81 mg Baclofen (Baclofen 10 Mg Tab) 10 mg PO BID [facility] Last Admin: 12/09/22 19:59 Dose: 10 mg Bisacodyl (Bisacodyl 10 Mg Rectal Supp) 10 mg RI DAILY PRN PRN Reason: CONSTIPATION Enoxaparin Sodium (Enoxaparin 40 Mg/0.4 Ml) 40 mg SQ DAILY 5 PM [facility] Last Admin: 12/09/22 17:43 Dose: 40 mg Gabapentin (Gabapentin 300 Mg Cap) 300 mg PO DAILY [facility] Last Admin: 12/09/22 08:02 Dose: 300 mg Sodium Chloride (Sodium Chloride) 250 mls @ 999 mls/hr IV Q15M PRN PRN Reason: HYPOTENSION Last Admin: 11/12/22 19:55 Dose: 250 mls Ipratropium [place] (Ipratropium Brom 0.5mg/2.5ml) 0.5 mg NEB [id number] [facility] Last Admin: 12/09/22 20:00 Dose: 0.5 mg Lorazepam (Lorazepam 0.5 Mg Tablet) 0.5 mg PO Q2H PRN PRN Reason: ANXIETY Last Admin: 12/09/22 17:43 Dose: 0.5 mg Metoprolol Tartrate (Metoprolol Tartrate 5 Mg/5 Ml Inj) 5 mg IV Q4H PRN PRN Reason: HR >120 Last Admin: 11/26/22 19:03 Dose: 5 mg Metoprolol Tartrate (Metoprolol Tar 50 Mg Tab) 50 mg PO BID [facility] Last Admin: 12/09/22 20:00 Dose: 50 mg Morphine Sulfate (Morphine Sulf 10 Mg/5 Ml [place]) 4 mg PO Q4H PRN PRN Reason: Pain scale 5-7 (Moderate) Last Admin: 12/09/22 19:59 Dose: 4 mg Ondansetron HCl (Ondansetron 4 Mg/2 Ml Vial) 4 mg IV Q4H PRN PRN Reason: NAUSEA / VOMITING Senna (Senosides 8.6 Mg Tab) 8.6 mg PO DAILY [facility] Last Admin: 12/09/22 08:02 Dose: 8.6 mg Sodium Chloride (Sodium Chloride 0.9% 10ml Inj) 10 ml IV UD PRN PRN Reason: Diluant Sodium Chloride (Flush Normal Saline 10 Ml) 10 ml IV BID [facility] Last Admin: 12/09/22 19:59 Dose: 10 ml Tamsulosin HCl (Tamsulosin 0.4 Mg Sr Cap) 0.4 mg PO DAILY [facility] Last Admin: 12/09/22 08:05 Dose: Not Given Microbiology Results 11/12/22 13:25 Blood - Blood Aerobic Blood Culture - Final Serratia Marcescens 11/12/22 13:25 Blood - Blood Blood Culture Gram Stain - Final 11/12/22 13:25 Blood - Blood Anaerobic Blood Culture - Final No growth in 5 days. Assessment/ Plan: Nephrology No dyspnea No chest pain Fatigue and weakness Chronic pain No acute events overnight Vitals, medications, blood work and imaging reviewed in the chart General: In no apparent distress, Cooperative HEENT: Atraumatic Neck: Supple Respiratory: CTA Anteriorly Cardiovascular: No edema, Regular rate/rhythm Gastrointestinal: Non-distended Musculoskeletal: No clubbing, No contractures Integumentary: No rashes, No cyanosis Neurological: Abnormal speech Blood work reviewed in the chart. Imagings Data: EXAM DESCRIPTION: [place]erson[place] Single View11/12/2022 1:05 pm CLINICAL HISTORY: Shortness of breath COMPARISON: September 2022 FINDINGS: Moderate to marked bilateral pulmonary opacities. The heart is normal size. Tracheostomy tube in place IMPRESSION: Moderate to marked bilateral pulmonary opacities may indicate pneumonia. EXAM DESCRIPTION: RAD - ENTEROSTOMY TUBE CHECK W/CONTR - 11/13/2022 9:53 am CLINICAL HISTORY: G tube placement confirmation COMPARISON: No comparisons FINDINGS: There were 2 KUB images obtained prior to and subsequent to retrograde injection of contrast via NG tube. The initial image shows G-tube in place in the midline abdomen. Stomach is not dilated. Air is seen in nondilated small bowel. Following retrograde injection, contrast is seen within the contracted gastric lumen. A small amount of contrast has extended into the duodenal C-loop. Focus of contrast along the right lateral margin of the G-tube does not clearly demonstrate gastric mucosal folds. Small amount of extraluminal contrast cannot be excluded. IMPRESSION: Questionable extraluminal contrast along the right lateral margin of the G-tube. CT abdomen examination without oral or IV contrast could be performed for more definitive assessment. LEFT VENTRICULAR WALL MOTION: ANTERIOR/ APICAL AKINESIS DOPPLER/COLOR FLOW: SEE BELOW COMMENTS: SEVERELY DEPRESSED LEFT VENTRICULAR EJECTION FRACTION 20-25%. ANTERIOR/ WIL SEPTAL/ APICAL AKINESIS. MODERATE MITRAL REGURGITATION. Conclusions/Impression: Proteinuria -No NSAIDs Hyponatremia, improving -Maintain nutrition Hypokalemia -Replete potassium prn -Maintain nutrition HypoPO4 -Replete phosphorus prn -Maintain nutrition Chronic Hypotension -IV Albumin prn Systolic CHF, chronic LVEF 20-25% Pulmonary edema -Daily weight Moderate to severe malnutrition with debility -Continue tube feeds Anemia in chronic illness Iron Deficiency 15% -Monitor H&H -Transfuse PRBCs prn -Consider IV iron Multifocal PNA & Aspiration PNA, resolved -Trach status -Continue ventilatory support
[2022-12-10] MEDS: IPRATROPIUM BROM 0.5MG/2.5ML NEB SCH ×3 (01:00→13:45)
[2022-12-10] MEDS: MORPHINE SULF 10 MG/5 ML OSYR PO PRN ×3 (04:36→14:07)
[2022-12-10] MEDS: LORAZEPAM 0.5 MG TABLET PO PRN ×4 (04:36→15:29)
[2022-12-10 05:19] VITALS: TEMP 96.2
--- NOTE | 2022-12-10 07:58 | P.PN ---
Subjective Date of Service: 12/10/22 Primary Care Provider: Orlin Chief Complaint: Pneumonia Subjective: No new changes, No C/O voiced, Tolerating diet, Ambulating, Improving Patient has pseudomonas and entrococcus in the urine, Serrtia in the blood and sputum plans for discharge pending arrangement of home vent 11/30 plans for transfer to [facility]. Patient is stable to go once arranged Review of Systems 10-point ROS is otherwise unremarkable Physical Examination - Vital Signs Temperature: 96.2 F Blood Pressure: 124/90 Pulse: 101 Respirations: 20 Pulse Ox (%): 100 - Physical Exam General: Alert, In no apparent distress HEENT: Atraumatic, PERRLA, EOMI Neck: Supple, JVD not distended Respiratory: Clear to auscultation bilaterally, Normal air movement Cardiovascular: Regular rate/rhythm, Normal S1 S2 Gastrointestinal: Normal bowel sounds, No tenderness Musculoskeletal: No tenderness Integumentary: No rashes Neurological: Normal speech, Normal tone, Normal affect Lymphatics: No axilla or inguinal lymphadenopathy Assessment And Plan - Current Problems (Diagnosis) (1) ALS (amyotrophic lateral sclerosis) Current Visit: No Status: Chronic Plan: plans for transfer to a facility in [place] to manage his vent. Will discharge once this is arranged Awaiting transfer to [facility] 12/01 Most likely the patient will be here for the weekends (2) Atrial fibrillation Current Visit: No Status: Acute Plan: Patient is stable. Will continue amiodarone and metoprolol 11/27 increase the metoprolol to 50mg po bid Qualifiers: Atrial fibrillation type: paroxysmal Qualified Code(s): I48.0 - Paroxysmal atrial fibrillation (3) Gram-neg septicemia Current Visit: Yes Status: Resolved Plan: will await antibiotigram to see what antibiotics he needs 11/23 hospice unlikely. will try for home health on this patient (4) Pneumonia Current Visit: Yes Status: Acute Plan: admit to the unit continue fluids and antibiotics. Will await blood cultures. consult to Dr. Beaver 11/[address] Beaver. He needs 2 weeks of meropenemn Qualifiers: Pneumonia type: due to unspecified organism Laterality: bilateral Lung location: lower lobe of lung Qualified Code(s): J18.9 - Pneumonia, unspecified organism (5) HTN (hypertension) Current Visit: No Status: Chronic Plan: He is currently hypotensive. Will hold the diltiazem Qualifiers: Hypertension type: primary hypertension Qualified Code(s): I10 - Essential (primary) hypertension (6) Respiratory muscle paralysis Current Visit: No Status: Chronic Plan: continue chronic vent management (7) Whole body pain Current Visit: Yes Status: Acute Plan: will try oral morphine. If no relief it may be neuropathic pain. In which case we can try pregabalin or gabapentin - Plan Plans for discharge when ltac arranged Discharge Plan: LTAC - Code Status/Comfort Care Code Status Assessed: No Physician Review: Patient Assessed, Agree with Above Assessment and Plan Critical Care: No Time Spent Managing PTS Care (In Minutes): 20
--- NOTE | 2022-12-10 08:00 | P.PN ---
Subjective Date of Service: 12/10/22 Primary Care Provider: Orlin Chief Complaint: Pneumonia Patient lying in bed resting with no major events upon examination. Physical Examination - Vital Signs Temperature: 96.2 F Blood Pressure: 124/90 Pulse: 101 Respirations: 20 Pulse Ox (%): 100 - Physical Exam General: Alert, In no apparent distress Respiratory: Crackles/rales (right greater than left), Other (Trach in place. Dressing clean and dry) Cardiovascular: Normal S1 S2, Edema (right hand +1) Gastrointestinal: Hypoactive, Other (PED IN PLACE) Musculoskeletal: Other (ALS) Integumentary: Pressure ulcer (DTI bilateral inferior scapular) Neurological: Other (Trach in place not able to talk. Able to nod head; ALS) Urinary: Sanchez catheter (yellow and clear) - Studies current medications Acetaminophen (Acetaminophen 325 Mg Tablet) 650 mg PO Q6H PRN PRN Reason: TEMP > 100.4' F Last Admin: 12/03/22 15:14 Dose: 650 mg Albuterol Sulfate (Albuterol 2.5 Mg/3 Ml Neb Opal) 2.5 mg NEB [id number] PRN PRN Reason: WHEEZING Amiodarone HCl (Amiodarone Hcl 200 Mg Tab) 200 mg FT BID [facility] Last Admin: 12/09/22 19:58 Dose: 200 mg Aspirin (Aspirin 81 Mg Chewable Tablet) 81 mg PO DAILY [facility] Last Admin: 12/09/22 08:01 Dose: 81 mg Baclofen (Baclofen 10 Mg Tab) 10 mg PO BID [facility] Last Admin: 12/09/22 19:59 Dose: 10 mg Bisacodyl (Bisacodyl 10 Mg Rectal Supp) 10 mg HI DAILY PRN PRN Reason: CONSTIPATION Enoxaparin Sodium (Enoxaparin 40 Mg/0.4 Ml) 40 mg SQ DAILY 5 PM [facility] Last Admin: 12/09/22 17:43 Dose: 40 mg Gabapentin (Gabapentin 300 Mg Cap) 300 mg PO DAILY [facility] Last Admin: 12/09/22 08:02 Dose: 300 mg Sodium Chloride (Sodium Chloride) 250 mls @ 999 mls/hr IV Q15M PRN PRN Reason: HYPOTENSION Last Admin: 11/12/22 19:55 Dose: 250 mls Ipratropium [place] (Ipratropium Brom 0.5mg/2.5ml) 0.5 mg NEB [id number] [facility] Last Admin: 12/10/22 01:00 Dose: 0.5 mg Lorazepam (Lorazepam 0.5 Mg Tablet) 0.5 mg PO Q2H PRN PRN Reason: ANXIETY Last Admin: 12/10/22 04:36 Dose: 0.5 mg Metoprolol Tartrate (Metoprolol Tartrate 5 Mg/5 Ml Inj) 5 mg IV Q4H PRN PRN Reason: HR >120 Last Admin: 11/26/22 19:03 Dose: 5 mg Metoprolol Tartrate (Metoprolol Tar 50 Mg Tab) 50 mg PO BID [facility] Last Admin: 12/09/22 20:00 Dose: 50 mg Morphine Sulfate (Morphine Sulf 10 Mg/5 Ml [place]) 4 mg PO Q4H PRN PRN Reason: Pain scale 5-7 (Moderate) Last Admin: 12/10/22 04:36 Dose: 4 mg Ondansetron HCl (Ondansetron 4 Mg/2 Ml Vial) 4 mg IV Q4H PRN PRN Reason: NAUSEA / VOMITING Senna (Senosides 8.6 Mg Tab) 8.6 mg PO DAILY [facility] Last Admin: 12/09/22 08:02 Dose: 8.6 mg Sodium Chloride (Sodium Chloride 0.9% 10ml Inj) 10 ml IV UD PRN PRN Reason: Diluant Sodium Chloride (Flush Normal Saline 10 Ml) 10 ml IV BID [facility] Last Admin: 12/09/22 19:59 Dose: 10 ml Tamsulosin HCl (Tamsulosin 0.4 Mg Sr Cap) 0.4 mg PO DAILY [facility] Last Admin: 12/09/22 08:05 Dose: Not Given Assessment And Plan - Current Problems (Diagnosis) (1) Bacteremia Plan: Cultures: 11/13 BC: Negative 11/13 Sputum: GNR - Serratia Marcsesens (MDR), susceptible to meropenem and Pseudomonas Aeruginosa, possible colonization (patient vital signs table, afebrile) 11/12 BC: GNR - Serratia Marcsesens (MDR) Antibiotics: On IV Meropenem from 11/13-11/28, completed (2) UTI (urinary tract infection) Plan: Cultures: 11/12 UC: Pseudomonas Aeruginosa (MDR), susceptible to Tobramycin and Enterococcus Faecium (MDR), susceptible to Gentamicin and intermittent to Nitrofurantoin Antibiotics: Current on PO Nitrofurantoin, 11/17-11/30, completed Recommendations: Can use acetic acid solution for bladder irrigation when patient spikes fever - Plan - Gram-neg septicemia: Antibiotics completed. - UTI: Antibiotics completed - Pneumonia - Severe protein calorie malnutrition - Atrial fibrillation - HTN (hypertension) - Respiratory muscle paralysis - Hypernatremia - Anemia - ALS (Amyotrophic Lateral Sclerosis) - Pancreatitis Plans to d/c to [facility]: Approved by insurance and pending for transferring Chronic respiratory failure, status post treatment for urinary tract infection and pneumonia. Continue supportive care and pulmonary hygiene. ID will follow patient as needed. Case has been discussed with Dr. Garcia N Physician Review: Patient Assessed, Agree with Above Assessment and Plan
[2022-12-10] MEDS: GABAPENTIN 300 MG CAP PO SCH (08:11)
[2022-12-10] MEDS: AMIODARONE HCL 200 MG TAB FT SCH (08:11)
[2022-12-10] MEDS: ASPIRIN 81 MG CHEWABLE TABLET PO SCH (08:11)
[2022-12-10] MEDS: SENOSIDES 8.6 MG TAB PO SCH (08:11)
[2022-12-10] MEDS: TAMSULOSIN 0.4 MG SR CAP PO SCH (08:11)
[2022-12-10] MEDS: METOPROLOL TAR 50 MG TAB PO SCH (08:11)
[2022-12-10] MEDS: BACLOFEN 10 MG TAB PO SCH (08:12)
[2022-12-10] MEDS: JEVITY 1.5 CAL LIQUID 1,000 ML BOT FT SCH ×2 (08:12→13:00)
[2022-12-10 12:26] LABS: SARS-CoV-2 Antigen Rapid Res Negative (Negative)
--- NOTE | 2022-12-10 14:50 | P.DS ---
Admission Date: 11/12/22 Discharge Date: 12/10/22 Primary Care Provider: Orlin Disposition: ROUTINE DISCHARGE Discharge Condition: GOOD Reason for Admission: Pneumonia - Problems (1) ALS (amyotrophic lateral sclerosis) Current Visit: No Status: Chronic (2) Atrial fibrillation Current Visit: No Status: Acute Qualifiers: Atrial fibrillation type: paroxysmal Qualified Code(s): I48.0 - Paroxysmal atrial fibrillation (3) Gram-neg septicemia Current Visit: Yes Status: Resolved (4) Pneumonia Current Visit: Yes Status: Acute Qualifiers: Pneumonia type: due to unspecified organism Laterality: bilateral Lung location: lower lobe of lung Qualified Code(s): J18.9 - Pneumonia, unspecified organism (5) HTN (hypertension) Current Visit: No Status: Chronic Qualifiers: Hypertension type: primary hypertension Qualified Code(s): I10 - Essential (primary) hypertension (6) Respiratory muscle paralysis Current Visit: No Status: Chronic (7) Whole body pain Current Visit: Yes Status: Acute Brief History of Present Illness: Patient is an unfortunate patient with advanced ALS. He is at home Was getting weak and brought to the ER. He was found to have a pneumonia. He is on a chronic vent. the patient is not able to speak due to this. Will admit him to the icu. The patient needs vent management. Hospital Course: Patient was admitted for pneumonia. He was admitted to the unit as he is on a chronic vent. The patient grew MDR serretia in his cultures. Needs Meropenem. Urine grew pseudomonas. The patient required 2 transfusion. a total of 3 units of prbc. He is on protonix bid. We can consider an outpatient GI consult. Will have him follow up via telehealth if the family is able to. Please have the sons call the office to set up an appointment 3 patients discharge was held due to placement. We had several family meetings. Then was awaiting insurance approval for him to go to a shelter care facility. Thank you for allowing me to take part in his care Vital Signs/Physical Exam: Temp Pulse Resp BP Pulse Ox 96.2 F L 101 H 20 124/90 98 12/10/22 12:22 12/10/22 12:22 12/10/22 14:07 12/10/22 12:22 12/10/22 14:07 General: Alert, In no apparent distress HEENT: Atraumatic, PERRLA, EOMI Neck: Supple, JVD not distended Respiratory: Clear to auscultation bilaterally, Normal air movement Cardiovascular: Regular rate/rhythm, Normal S1 S2 Gastrointestinal: Normal bowel sounds, No tenderness Musculoskeletal: No tenderness Integumentary: No rashes Neurological: Normal speech, Normal tone, Normal affect Lymphatics: No axilla or inguinal lymphadenopathy Laboratory Data at Discharge: WBC 11.90 K/uL (4.3-10.9) H 12/03/22 04:28 Hgb 8.2 g/dL (13.6-17.9) L 12/03/22 04:28 Hct 24.6 % (39.6-49.0) L 12/03/22 04:28 Plt Count 366 K/uL (152-406) 12/03/22 04:28 Sodium 130 mmol/L (136-145) L 12/06/22 05:00 Potassium 4.5 mmol/L (3.5-5.1) 12/06/22 05:00 BUN 22 mg/dL (7-18) H 12/06/22 05:00 Creatinine 0.39 mg/dL (0.70-1.30) L 12/06/22 05:00 Glucose 114 mg/dL (74-106) H 12/06/22 05:00 Uric Acid 3.9 mg/dL (3.5-7.2) 11/23/22 03:35 Phosphorus 3.0 mg/dL (2.5-4.9) 11/23/22 03:35 Magnesium 1.8 mg/dL (1.6-2.4) 11/23/22 03:35 Total Bilirubin 0.5 mg/dL (0.2-1.0) 12/03/22 04:28 AST 24 U/L (15-37) 12/03/22 04:28 ALT 35 U/L (16-61) 12/03/22 04:28 Alkaline Phosphatase 259 U/L (45-117) H 12/03/22 04:28 Triglycerides 84 mg/dL (<150) 11/12/22 15:33 Cholesterol 80 mg/dL (<200) 11/12/22 15:33 HDL Cholesterol 25 mg/dL (40-60) L 11/12/22 15:33 Cholesterol/HDL Ratio 3.20 11/12/22 15:33 Home Medications: Aspirin [Adult Low Dose Aspirin EC] 81 mg PO DAILY 12/02/18 Rivaroxaban [Xarelto] 20 mg PO DAILY 90 Days #90 tablet 12/03/18 Baclofen 10 mg PO BID 08/05/22 Gabapentin 300 mg PO DAILY 08/05/22 Riluzole 50 mg PO BID 08/05/22 Amiodarone HCl [Cordarone*] 200 mg FT BID 90 Days #180 tab NS 08/12/22 Diltiazem Tab [Cardizem Tab*] 30 mg PO Q8H 90 Days #270 tab NS 08/12/22 Metoprolol Tartrate [Lopressor*] 50 mg PO Q8HR 90 Days #270 tab NS 08/12/22 Pantoprazole Sodium [Protonix] 40 mg PO DAILY 90 Days #90 syr 08/12/22 Hyoscyamine Sulfate 0.125 mg PO Q4HR PRN 09/29/22 LORazepam [Lorazepam] 0.5 mg PO Q2HR PRN 09/29/22 Morphine Sulfate 0.5 - 1 ml FT Q4HR PRN 09/29/22 Nutritional Supplement [Boost Max] 325 ml PO TID 09/29/22 Promethazine HCl 25 mg PO Q4HR PRN 09/29/22 Sennosides [Lynn-Guerline] 8.6 mg PO DAILY 09/29/22 Tamsulosin [Flomax] 0.4 mg PO DAILY 09/29/22 Levofloxacin [Levaquin] 500 mg FT DAILY 4 Days #4 10/05/22 Nitrofuran Macro [Macrodantin*] 100 mg PO QID 4 Days #20 cap 11/19/22 Pantoprazole [Protonix Tab*] 40 mg PO BIDAC 90 Days #180 tab 11/19/22 New Medications: Nitrofuran Macro [Macrodantin*] 100 mg PO QID 4 Days #20 cap Pantoprazole [Protonix Tab*] 40 mg PO BIDAC 90 Days #180 tab Diet: peg feedin Activity: Ad enrique Followup: Sammy Ordaz MD [Primary Care Provider] - 1 Week (can do a tele health visit. Please have the sons call the office [phone]) Time spent managing pt's care (in minutes): 45
[2022-12-10 15:11] VITALS: BP 126/82
--- NOTE | 2022-12-10 21:26 | P.PN ---
Date of Service: 12/10/22 Vital Signs Temp Pulse Resp BP Pulse Ox 96.2 F L 121 H 20 126/82 99 12/10/22 12:22 12/10/22 15:00 12/10/22 15:07 12/10/22 15:00 12/10/22 15:07 Microbiology Results 11/12/22 13:25 Blood - Blood Aerobic Blood Culture - Final Serratia Marcescens 11/12/22 13:25 Blood - Blood Blood Culture Gram Stain - Final 11/12/22 13:25 Blood - Blood Anaerobic Blood Culture - Final No growth in 5 days. Assessment/ Plan: Nephrology No dyspnea No chest pain Fatigue and weakness Chronic pain No acute events overnight Vitals, medications, blood work and imaging reviewed in the chart General: In no apparent distress, Cooperative HEENT: Atraumatic Neck: Supple Respiratory: CTA Anteriorly Cardiovascular: No edema, Regular rate/rhythm Gastrointestinal: Non-distended Musculoskeletal: No clubbing, No contractures Integumentary: No rashes, No cyanosis Neurological: Abnormal speech Blood work reviewed in the chart. Imagings Data: EXAM DESCRIPTION: RADChest Single View11/12/2022 1:05 pm CLINICAL HISTORY: Shortness of breath COMPARISON: September 2022 FINDINGS: Moderate to marked bilateral pulmonary opacities. The heart is normal size. Tracheostomy tube in place IMPRESSION: Moderate to marked bilateral pulmonary opacities may indicate pneumonia. EXAM DESCRIPTION: RAD - ENTEROSTOMY TUBE CHECK W/CONTR - 11/13/2022 9:53 am CLINICAL HISTORY: G tube placement confirmation COMPARISON: No comparisons FINDINGS: There were 2 KUB images obtained prior to and subsequent to retrograde injection of contrast via NG tube. The initial image shows G-tube in place in the midline abdomen. Stomach is not dilated. Air is seen in nondilated small bowel. Following retrograde injection, contrast is seen within the contracted gastric lumen. A small amount of contrast has extended into the duodenal C-loop. Focus of contrast along the right lateral margin of the G-tube does not clearly demonstrate gastric mucosal folds. Small amount of extraluminal contrast cannot be excluded. IMPRESSION: Questionable extraluminal contrast along the right lateral margin of the G-tube. CT abdomen examination without oral or IV contrast could be performed for more definitive assessment. LEFT VENTRICULAR WALL MOTION: ANTERIOR/ APICAL AKINESIS DOPPLER/COLOR FLOW: SEE BELOW COMMENTS: SEVERELY DEPRESSED LEFT VENTRICULAR EJECTION FRACTION 20-25%. ANTERIOR/ WIL SEPTAL/ APICAL AKINESIS. MODERATE MITRAL REGURGITATION. Conclusions/Impression: Proteinuria -No NSAIDs Hyponatremia, improving -Maintain nutrition Hypokalemia -Replete potassium prn -Maintain nutrition HypoPO4 -Replete phosphorus prn -Maintain nutrition Chronic Hypotension -IV Albumin prn Systolic CHF, chronic LVEF 20-25% Pulmonary edema -Daily weight Moderate to severe malnutrition with debility -Continue tube feeds Anemia in chronic illness Iron Deficiency 15% -Monitor H&H -Transfuse PRBCs prn -Consider IV iron Multifocal PNA & Aspiration PNA, resolved -Trach status -Continue ventilatory support
== END 2022-12-10 16:15 | DRG 870 ==
LOC: ER 10:17 → ERHOLD 14:33 → 3RD-ICU 23:56
PROVIDERS: ADMIT Internal Medicine; ATTEND Internal Medicine
PROC: 5A1955Z Respiratory Ventilation, Greater than 96 Consecutive Hours (ICD-10-PCS; principal; 2022-11-12)
PROC: 30233N1 Transfusion of Nonautologous Red Blood Cells into Peripheral Vein, Percutaneous Approach (ICD-10-PCS; 2022-11-13)
PROC: 02HV33Z Insertion of Infusion Device into Superior Vena Cava, Percutaneous Approach (ICD-10-PCS; 2022-11-16)
DX: A41.52 Sepsis due to Pseudomonas (principal); J18.9 Pneumonia, unspecified organism; J96.01 Acute respiratory failure with hypoxia; E43 Unspecified severe protein-calorie malnutrition; E87.1 Hypo-osmolality and hyponatremia; I50.22 Chronic systolic (congestive) heart failure; N39.0 Urinary tract infection, site not specified; E87.0 Hyperosmolality and hypernatremia; G12.21 Amyotrophic lateral sclerosis; Z16.21 Resistance to vancomycin; A41.81 Sepsis due to Enterococcus; A41.53 Sepsis due to Serratia; L89.152 Pressure ulcer of sacral region, stage 2; E11.40 Type 2 diabetes mellitus with diabetic neuropathy, unspecified; E83.42 Hypomagnesemia; E78.5 Hyperlipidemia, unspecified; K21.9 Gastro-esophageal reflux disease without esophagitis; I48.0 Paroxysmal atrial fibrillation; E87.6 Hypokalemia; D63.8 Anemia in other chronic diseases classified elsewhere; D50.9 Iron deficiency anemia, unspecified; E83.39 Other disorders of phosphorus metabolism; I10 Essential (primary) hypertension; I25.2 Old myocardial infarction; Z88.8 Allergy status to other drugs, medicaments and biological substances; Z93.0 Tracheostomy status; Z68.22 Body mass index [BMI] 22.0-22.9, adult; Z79.82 Long term (current) use of aspirin; Z79.01 Long term (current) use of anticoagulants; Z79.899 Other long term (current) drug therapy; Z20.822 Contact with and (suspected) exposure to COVID-19
CPT/HCPCS: 36415; 36430; 36569; 49465; 71045; 71250; 80048; 80053; 80061; 80200; 80202; 81001; 82435; 82550; 82570; 82947; 83036; 83540; 83735; 83880; 83930; 83935; 84100; 84132; 84145; 84295; 84300; 84439; 84443; 84466; 84484; 84550; 85014; 85018; 85025; 85027; 86850; 86900; 86901; 87040; 87070; 87077; 87086; 87088; 87186; 87205; 87811; 93005; 94002; 94003; 96365; 96375; 97110; 97161; 99285; C9113; J0692; J1170; J1650; J1940; J2185; J2916; J3260; J3370; J3475; J7030; J7040; J7050; J7608; J7613; J7614; J7644; P9016; P9047